=== PATIENT | female | born 1945 | race Caucasian/White ===

== ENCOUNTER 2017-02-28 12:51 | Emergency (ER) | payer MEDICARE, OTHER ==
[~2017-02-28] VITALS: Ht 154.9 cm; Wt 72.5 kg
[~2017-02-28 12:51] MED LIST: HYDR10TA16 PO; LISI30TA4 PO; XANA2TAB2 PO
[2017-02-28 12:56] VITALS: BP 232/100; PULSE 86; RESP 20; TEMP 98.4; O2SAT 95
--- NOTE | 2017-02-28 13:13 | PD ---
Physical Exam Date Seen by Provider: Feb 28, 2017 Time Seen by Provider: 13:11 Narrative 71-year-old female presents to emergency Department with request with help for detox from alcohol. Patient is also a type II diabetic using insulin says her sugars a bit high. She states her son is getting released from skilled nursing which is also a stressor for her. She currently denies suicidal or homicidal ideation. Patient states she has been drinking today. She smells of alcohol. She is quite sad and upset with herself. Patient denies pain at this time. She has no known drug allergies. Data Data Last Documented VS Vital Signs Date Time Temp Pulse Resp B/P (MAP) Pulse Ox O2 Delivery O2 Flow Rate FiO2 02/28/17 12:56 98.4 86 20 232/100 (144) 95 Orders Orders Complete Blood Count With Diff (02/28/17 13:10) Comprehensive Metabolic Panel (02/28/17 13:10) Urinalysis - C+S If Indicated (02/28/17 13:10) Electrocardiogram (02/28/17 13:10) Psych Screen (02/28/17 13:10) Drug Screen, Random Urine (02/28/17 13:10) Alcohol (Ethanol) (02/28/17 13:10) MDM Medical Record Reviewed: Yes Supervised Visit with JUN: Yes Narrative Course Patient is intoxicated but medically stable. Understood blood sugar is 104. Psychiatric labs ordered per protocol. Psych screen is ordered. Patient is awaiting medical bed placement. Condition: Stable Marco Novak Feb 28, 2017 13:13
[2017-02-28 14:43] LABS: BACTERIA, URINE RARE /hpf; BLOOD, URINE TRACE (NEG); COMMENT (UR) CULT NOT INDICATED; CULTURE IF INDICATED CULT NOT INDICATED; GLUCOSE,URINE NEG (NEG); KETONE, URINE NEG (NEG); NITRITE,URINE NEG (NEG); SQUAMOUS EPITHELIAL CELL URINE 1 /hpf (0-5); TRANSITIONAL EPI CELLS, URINE <1 /hpf; URINE COLOR LIGHT-YELLOW (YELLW/STRAW)
[2017-02-28] MEDS ORDERED: HYDR-3516 PO (14:45)
[2017-02-28] MEDS ORDERED: TEMA15CA PO (14:45)
[2017-02-28] MEDS ORDERED: NIFE30TA61 PO (14:45)
[2017-02-28] MEDS ORDERED: GLIP5TAB8 PO (14:45)
[2017-02-28] MEDS ORDERED: TIZA2TAB PO (14:45)
[2017-02-28 14:48] LABS: AUTOMATED NEUTROPHIL # 3.4 TH/MM3 (1.8-7.7); BASOPHIL # 0.1 TH/MM3 (0-0.2); BASOPHIL % 0.9 % (0.0-2.0); EOSINOPHIL # 0.1 TH/MM3 (0-0.4); EOSINOPHIL % 1.1 % (0.0-4.0); HEMATOCRIT 27.8 % (35.0-46.0); HEMO FLAGS DIFF FINAL; LYMPH % 41.8 % (9.0-44.0); MEAN CELL VOLUME 93.4 FL (80.0-100.0); MEAN CORPUSCULAR HEMOGLOBIN 32.9 PG (27.0-34.0); MEAN CORPUSCULAR HGB CONC 35.2 % (32.0-36.0); MONO % 8.6 % (0.0-8.0); NEUT % 47.6 % (16.0-70.0); PLATELET COUNT 214 TH/MM3 (150-450); RED BLOOD COUNT 2.97 MIL/MM3 (4.00-5.30); RED CELL DISTRIBUTION WIDTH 13.6 % (11.6-17.2); WHITE BLOOD COUNT 7.1 TH/MM3 (4.0-11.0)
[2017-02-28] MEDS ORDERED: CHLO25CA9 PO (14:54)
--- NOTE | 2017-02-28 14:55 | PD ---
HPI Chief Complaint: Psychiatric Symptoms Time Seen by Provider: 14:39 Travel History International Travel<30 days: No Contact w/Intl Traveler<30days: No Traveled to known affect area: No History of Present Illness HPI 71 yo F requests admission for detox from alcohol. she drinks daily and has done so for years leading up to her current desire to quit. no alcohol withdrawal symptoms. no si/hi. location generalized/neuropsych. timing constant. severity moderate. she prefers not to stay at [facility]. PFSH Past Medical History Arthritis: Yes (FINGERS/FEET) Asthma: No Autoimmune Disease: No Blood Disorders: No Anxiety: Yes Depression: Yes Heart Rhythm Problems: Yes (RBBB, LVH, 1ST DEGREE ) Cancer: No Cardiovascular Problems: Yes High Cholesterol: No Chemotherapy: No Chest Pain: Yes Congestive Heart Failure: No COPD: No Cerebrovascular Accident: No Diabetes: Yes Patient Takes Glucophage: No Diminished Hearing: No Endocrine: No Gastrointestinal Disorders: Yes (GI BLEED 2001) GERD: No Glaucoma: No Genitourinary: No Headaches: No Hepatitis: No Hiatal Hernia: No Hypertension: Yes Immune Disorder: No Kidney Stones: No Musculoskeletal: Yes 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) Psychiatric: Yes Reproductive: No Respiratory: No Immunizations Current: Yes Migraines: No Myocardial Infarction: Yes Radiation Therapy: No Renal Failure: No Seizures: No Sickle Cell Disease: No Sleep Apnea: No Thyroid Disease: No Ulcer: Yes (ULCER FROM NSAIDS 2001) ?: Not Menopausal: Yes : 4 Para: 5 Past Surgical History Abdominal Surgery: No AICD: No Appendectomy: No Arteriovenous Shunt: No Cardiac Surgery: No Cholecystectomy: No Ear Surgery: No Endocrine Surgery: No Eye Surgery: No Genitourinary Surgery: No Gynecologic Surgery: No Insulin Pump: No Joint Replacement: No Oral Surgery: No Pacemaker: No Thoracic Surgery: No Other Surgery: Yes Social History Alcohol Use: Yes (states she drinks daily) Tobacco Use: No Substance Use: No Allergies-Medications (Allergen,Severity, Reaction): Coded Allergies: No Known Allergies (Verified , 02/28/17) Reported Meds & Prescriptions Reported Meds & Active Scripts Active Chlordiazepoxide HCl 25 Mg Capsule 1 Tab PO BID PRN Reported Tizanidine (Tizanidine HCl) 2 Mg Tab 2 Mg PO HS Temazepam 15 Mg Cap 15 Mg PO HS PRN Glipizide 5 Mg Tab 2.5 Mg PO BIDAC Take 30 minutes before a meal Hydrocodone-Acetaminophen 5-325 mg Tab 1 Tab PO Q4H PRN Nifedipine ER 24 HR (Nifedipine) 30 Mg Tab 30 Mg PO DAILY Review of Systems Except as stated in HPI: all other systems reviewed are Neg Physical Exam Narrative GENERAL: 71 yo female, wnwd, no acute distress SKIN: Warm and dry. HEAD: Atraumatic. Normocephalic. EYES: Pupils equal and round. No scleral icterus. No injection or drainage. ENT: No nasal bleeding or discharge. Mucous membranes pink and moist. NECK: Trachea midline. No JVD. CARDIOVASCULAR: Regular rate and rhythm. RESPIRATORY: No accessory muscle use. Clear to auscultation. Breath sounds equal bilaterally. GASTROINTESTINAL: Abdomen soft, non-tender, nondistended. Hepatic and splenic margins not palpable. MUSCULOSKELETAL: Extremities without clubbing, cyanosis, or edema. No obvious deformities. NEUROLOGICAL: Awake and alert. No obvious cranial nerve deficits. Motor grossly within normal limits. Five out of 5 muscle strength in the arms and legs. Normal speech. PSYCHIATRIC: Appropriate mood and affect; insight and judgment normal. Data Data Last Documented VS Vital Signs Date Time Temp Pulse Resp B/P (MAP) Pulse Ox O2 Delivery O2 Flow Rate FiO2 02/28/17 15:28 02/28/17 12:56 98.4 86 20 95 Orders Orders Complete Blood Count With Diff (02/28/17 13:10) Comprehensive Metabolic Panel (02/28/17 13:10) Urinalysis - C+S If Indicated (02/28/17 13:10) Electrocardiogram (02/28/17 13:10) Psych Screen (02/28/17 13:10) Drug Screen, Random Urine (02/28/17 13:10) Alcohol (Ethanol) (02/28/17 13:10) Chlordiazepoxide (Librium) (02/28/17 15:00) Ed Discharge Order (02/28/17 14:55) Labs Laboratory Tests Test 02/28/17 14:00 02/28/17 14:20 Urine Color LIGHT-YELLOW Urine Turbidity CLEAR Urine pH 7.0 Urine Specific [place] 1.005 Urine Protein 100 mg/dL Urine Glucose (UA) NEG mg/dL Urine Ketones NEG mg/dL Urine Occult Blood TRACE Urine Nitrite NEG Urine Bilirubin NEG Urine Urobilinogen LESS THAN 2.0 MG/DL Urine Leukocyte Esterase NEG Urine RBC 1 /hpf Urine WBC 1 /hpf Urine Squamous Epithelial Cells 1 /hpf Urine Transitional Epithelial Cells <1 /hpf Urine Bacteria RARE /hpf Microscopic Urinalysis Comment CULT NOT INDICATED Urine Opiates Screen NEG Urine Barbiturates Screen NEG Urine Amphetamines Screen NEG Urine Benzodiazepines Screen NEG Urine Cocaine Screen NEG Urine Cannabinoids Screen NEG White Blood Count 7.1 TH/MM3 Red Blood Count 2.97 MIL/MM3 Hemoglobin 9.8 GM/DL Hematocrit 27.8 % Mean Corpuscular Volume 93.4 FL Mean Corpuscular Hemoglobin 32.9 PG Mean Corpuscular Hemoglobin Concent 35.2 % Red Cell Distribution Width 13.6 % Platelet Count 214 TH/MM3 Mean Platelet Volume 8.0 FL Neutrophils (%) (Auto) 47.6 % Lymphocytes (%) (Auto) 41.8 % Monocytes (%) (Auto) 8.6 % Eosinophils (%) (Auto) 1.1 % Basophils (%) (Auto) 0.9 % Neutrophils # (Auto) 3.4 TH/MM3 Lymphocytes # (Auto) 3.0 TH/MM3 Monocytes # (Auto) 0.6 TH/MM3 Eosinophils # (Auto) 0.1 TH/MM3 Basophils # (Auto) 0.1 TH/MM3 CBC Comment DIFF FINAL Differential Comment Blood Urea Nitrogen 50 MG/DL Creatinine 3.47 MG/DL Random Glucose 77 MG/DL Total Protein 9.2 GM/DL Albumin 3.7 GM/DL Calcium Level 9.0 MG/DL Alkaline Phosphatase 103 U/L Aspartate Amino Transf (AST/SGOT) 24 U/L Alanine Aminotransferase (ALT/SGPT) 27 U/L Total Bilirubin 0.2 MG/DL Sodium Level 138 MEQ/L Potassium Level 4.3 MEQ/L Chloride Level 103 MEQ/L Carbon Dioxide Level 26.9 MEQ/L Anion Gap 8 MEQ/L Estimat Glomerular Filtration Rate 13 ML/MIN Ethyl Alcohol Level 315 MG/DL [facility] Medical Decision Making Medical Screen Exam Complete: Yes Emergency Medical Condition: Yes Medical Record Reviewed: Yes Differential Diagnosis alcoholism, mona, delerium tremens, anxiety, depression, si, hi Narrative Course CBC & BMP Diagram 02/28/17 14:20 Total Protein 9.2 H, Albumin 3.7, Calcium Level 9.0, Alkaline Phosphatase 103, Aspartate Amino Transf (AST/SGOT) 24, Alanine Aminotransferase (ALT/SGPT) 27, Total Bilirubin 0.2 pt has known history of renal failure such that elevated bun/creatinine does not require admission further evaluation. pt agreeable with plan for discharge with librium. pt is desirous of sobriety however not suicidal or homicidal and therefor stable for discharge. Diagnosis Primary Impression: Alcoholism Referrals: [facility] Additional Instructions: You have a choice when it comes to health care, and we are glad that you chose [facility]. Hopefully, we have met your expectations on today's visit. You are welcome to return to [facility] at any time, as we are committed to meeting the health care needs of our community. Med/Other Pt SpecificInfo: Prescription(s) given Scripts Chlordiazepoxide HCl (Chlordiazepoxide HCl) 25 Mg Capsule 1 TAB PO BID Y for WITHDRAWAL, #20 Prov: Santi Khan MD 02/28/17 Disposition: 01 DISCHARGE HOME Condition: Stable Santi Khan MD Feb 28, 2017 14:55
[2017-02-28 14:57] LABS: ALT (GPT) 27 U/L (10-53); ANION GAP 8 MEQ/L (5-15); AST (GOT) 24 U/L (15-37); BICARBONATE 26.9 MEQ/L (21.0-32.0); BLOOD UREA NITROGEN 50 MG/DL (7-18); CHLORIDE 103 MEQ/L (98-107); GLOMERULAR FILTRATION RATE 13 ML/MIN (>89); POTASSIUM 4.3 MEQ/L (3.5-5.1); SODIUM (NA) 138 MEQ/L (136-145)
[2017-02-28 15:02] LABS: ALKALINE PHOSPHATASE 103 U/L (45-117); TOTAL BILIRUBIN ADULT 0.2 MG/DL (0.2-1.0)
[2017-02-28 15:29] LABS: ALCOHOL 315 MG/DL (0-5)
--- NOTE | 2017-02-28 22:03 | EKG ---
Date Performed: 02/28/2017 Time Performed: 14:05:32 PTAGE: 71 years EKG: Sinus rhythm WITH FIRST DEGREE AV BLOCK RIGHT BUNDLE BRANCH BLOCK LEFT VENTRICULAR HYPERTROPHY AND ST-T CHANGES A BNORMAL ECG PREVIOUS TRACING : 12/04/2008 02.35 Compared to the previous tracing RBBB now present DOCTOR: Lola Nguyen Interpretating Date/Time 02/28/2017 22:01:53
== END 2017-02-28 15:29 | disposition home or self-care (01) ==
LOC: NEPD 12:51
DX: F10.20 Alcohol dependence, uncomplicated (principal); I12.9 Hypertensive chronic kidney disease with stage 1 through stage 4 chronic kidney disease, or unspecified chronic kidney disease; E11.22 Type 2 diabetes mellitus with diabetic chronic kidney disease; N18.9 Chronic kidney disease, unspecified; I44.0 Atrioventricular block, first degree; I45.10 Unspecified right bundle-branch block; I51.7 Cardiomegaly; R94.31 Abnormal electrocardiogram [ECG] [EKG]; M19.90 Unspecified osteoarthritis, unspecified site
CPT/HCPCS: 80053; 80307; 81001; 85025; 93005

== ENCOUNTER 2017-04-12 14:15 | Inpatient (IN) | payer OTHER, MEDICARE ==
[2017-04-12] VITALS (12 sets, daily range): BP systolic 133–242; BP diastolic 69–140; PULSE 66–104; RESP 13–22; TEMP 98–98.9; O2SAT 94–98
[~2017-04-12] VITALS: Ht 157.5 cm; Wt 77.6 kg
[~2017-04-12 14:15] MED LIST changes: +CHLO25CA9 PO; +GLIP5TAB8 PO; +HYDR-3516 PO; -HYDR10TA16 PO; -LISI30TA4 PO; +NIFE30TA61 PO; +TEMA15CA PO; +TIZA2TAB PO; -XANA2TAB2 PO
[2017-04-12] MEDS ORDERED: SODIUM CHLOR 0.9% 1000 ML INJ 1,000 ML IV SCH (14:54)
[2017-04-12] MEDS ORDERED: SODIUM CHLORIDE 0.9% FLUSH 10 ML FLUSH IV FLUSH PRN ×2 (15:00→19:00)
[2017-04-12] MEDS ORDERED: LABETALOL HCL 100 MG/20 ML VIAL IV PUSH ONE ×2 (15:00→16:30)
--- NOTE | 2017-04-12 15:05 | PD ---
HPI Chief Complaint: Altered Mental Status Time Seen by Provider: 14:54 Travel History International Travel<30 days: No Contact w/Intl Traveler<30days: No Traveled to known affect area: No History of Present Illness HPI 71 year old female presents to the emergency department via EMS for evaluation of AMS. According to EMS, the patient will be oriented to person, place, time, but will say bizarre things and act confused. The patient was apparently found in her apartment drenched in sweat with the oven on and unshowered. She apparently also had several days worth of food out and her place was disheveled. Apparently, she usually takes immaculate care of herself and her house. She lives alone. The patient does not make sense when she tells he was going on. She states her electricity was turned off 3 days ago, but her landlord has so she couldn't call him. Then she states that the remote to the TV belongs to her landlord and he is out of town. She also states that she turned on the oven, but states her electricity off. She is not making any sense. However, she does know that she is at the hospital, the year is 2016, we are in [place] and the president is Stephen Ash. The patient denies any pain to me. She states that she just wants to go home. The patient does report history of hypertension and states she has not been taking her medications. She states she has not eaten or drank in the past 3 days. Patient does state that she fell on Monday and then got herself up to the couch. Exacerbating alleviating factors. Moderate severity. According to chart, the patient has history of alcoholism. PFSH Past Medical History Arthritis: Yes (FINGERS/FEET) Asthma: No Autoimmune Disease: No Blood Disorders: No Anxiety: Yes Depression: Yes Heart Rhythm Problems: Yes (RBBB, LVH, 1ST DEGREE ) Cancer: No Cardiovascular Problems: Yes (HTN) High Cholesterol: No Chemotherapy: No Chest Pain: Yes Congestive Heart Failure: No COPD: No Cerebrovascular Accident: No Diabetes: Yes Diminished Hearing: No Endocrine: No Gastrointestinal Disorders: Yes (GI BLEED 2001) GERD: No Glaucoma: No Genitourinary: No Headaches: No Hepatitis: No Hiatal Hernia: No Hypertension: Yes Immune Disorder: No Kidney Stones: No Musculoskeletal: Yes 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) Psychiatric: Yes Reproductive: No Respiratory: No Immunizations Current: Yes Migraines: No Myocardial Infarction: Yes Radiation Therapy: No Renal Failure: No Seizures: No Sickle Cell Disease: No Sleep Apnea: No Thyroid Disease: No Ulcer: Yes (ULCER FROM NSAIDS 2001) ?: Not Menopausal: Yes : 4 Para: 5 Past Surgical History Abdominal Surgery: No AICD: No Appendectomy: No Arteriovenous Shunt: No Cardiac Surgery: No Cholecystectomy: No Ear Surgery: No Endocrine Surgery: No Eye Surgery: No Genitourinary Surgery: No Gynecologic Surgery: No Insulin Pump: No Joint Replacement: No Oral Surgery: No Pacemaker: No Thoracic Surgery: No Other Surgery: Yes Social History Alcohol Use: Yes (states she drinks daily) Tobacco Use: No Substance Use: No Allergies-Medications (Allergen,Severity, Reaction): Coded Allergies: No Known Allergies (Verified Adverse Reaction, Unknown, 04/12/17) Reported Meds & Prescriptions Reported Meds & Active Scripts Active Reported Tizanidine (Tizanidine HCl) 2 Mg Tab 2 Mg PO HS Temazepam 15 Mg Cap 15 Mg PO HS PRN Glipizide 5 Mg Tab 2.5 Mg PO BIDAC Take 30 minutes before a meal Hydrocodone-Acetaminophen 5-325 mg Tab 1 Tab PO Q4H PRN Nifedipine ER 24 HR (Nifedipine) 30 Mg Tab 30 Mg PO DAILY Review of Systems Except as stated in HPI: all other systems reviewed are Neg Physical Exam Narrative GENERAL: Well-nourished, well-developed female patient, afebrile. SKIN: Focused skin assessment warm/dry. HEAD: Normocephalic. Atraumatic. EYES: No scleral icterus. No injection or drainage. EOM intact. ENT: Mucosa pink and moist. No erythema or exudates. No uvular edema. No uvular , palatal, or tonsillar deviation. Airway patent. Nasal turbinates appear normal without nasal blood, purulent drainage or septal hematoma. Bilateral tympanic membranes are clear without erythema or perforation. NECK: Supple, trachea midline. No JVD or lymphadenopathy. CARDIOVASCULAR: Regular rate and rhythm without murmurs, gallops, or rubs. Bilateral radial and pedal pulses are 2+. RESPIRATORY: Breath sounds equal bilaterally. No accessory muscle use. Lungs sounds are clear to auscultation. GASTROINTESTINAL: Abdomen soft, non-tender, nondistended. MUSCULOSKELETAL: No cyanosis, or edema. Bilateral upper and lower extremity strength 5/5. All extremities are neurovascularly intact. BACK: Nontender without obvious deformity. No CVA tenderness. NEUROLOGICAL: Awake and alert. Motor and sensory grossly within normal limits. Five out of 5 muscle strength in all muscle groups. Normal speech. Patient acts confused and does not make sense when telling why she is here. Finger to nose is normal bilaterally. [id number] is normal bilaterally. Data Data Last Documented VS Vital Signs Date Time Temp Pulse Resp B/P (MAP) Pulse Ox O2 Delivery O2 Flow Rate FiO2 04/12/17 17:30 70 13 186/81 (116) 95 Room Air 04/12/17 15:01 98.5 Orders Orders Electrocardiogram (04/12/17 14:54) Ammonia (04/12/17 14:54) Comprehensive Metabolic Panel (04/12/17 14:54) Creatine Kinase (Cpk) (04/12/17 14:54) Prothrombin Time / Inr (Pt) (04/12/17 14:54) Act Partial Throm Time (Ptt) (04/12/17 14:54) Troponin I (04/12/17 14:54) Urinalysis - C+S If Indicated (04/12/17 14:54) Lactic Acid Sepsis Protocol (04/12/17 14:54) Blood Culture (04/12/17 14:54) Ct Brain W/O Iv Contrast(Rout) (04/12/17 14:54) Blood Glucose (04/12/17 14:54) Ecg Monitoring (04/12/17 14:54) Iv Access Insert/Monitor (04/12/17 14:54) Cath For Specimen (04/12/17 14:54) Oximetry (04/12/17 14:54) Sodium Chloride 0.9% Flush (Ns Flush) (04/12/17 15:00) Sodium Chlor 0.9% 1000 Ml Inj (Ns 1000 M (04/12/17 14:54) Alcohol (Ethanol) (04/12/17 14:54) Labetalol Inj (Trandate Inj) (04/12/17 15:00) Complete Blood Count With Diff (04/12/17 15:06) Pelvis, Ap Only (Routine) (04/12/17 ) Chest, Single Ap (04/12/17 ) Labetalol Inj (Trandate Inj) (04/12/17 16:30) Urine Culture (04/12/17 16:20) Nifedipine Sr (Procardia Xl) (04/12/17 17:30) Ceftriaxone Inj (Rocephin Inj) (04/12/17 18:00) Admit Order (Ed Use Only) (04/12/17 18:31) Labs Laboratory Tests Test 04/12/17 16:15 04/12/17 16:20 White Blood Count 8.2 TH/MM3 Red Blood Count 2.98 MIL/MM3 Hemoglobin 9.2 GM/DL Hematocrit 27.9 % Mean Corpuscular Volume 93.6 FL Mean Corpuscular Hemoglobin 30.9 PG Mean Corpuscular Hemoglobin Concent 33.0 % Red Cell Distribution Width 15.6 % Platelet Count 204 TH/MM3 Mean Platelet Volume 8.8 FL Neutrophils (%) (Auto) 75.9 % Lymphocytes (%) (Auto) 12.9 % Monocytes (%) (Auto) 10.8 % Eosinophils (%) (Auto) 0.1 % Basophils (%) (Auto) 0.3 % Neutrophils # (Auto) 6.2 TH/MM3 Lymphocytes # (Auto) 1.1 TH/MM3 Monocytes # (Auto) 0.9 TH/MM3 Eosinophils # (Auto) 0.0 TH/MM3 Basophils # (Auto) 0.0 TH/MM3 CBC Comment DIFF FINAL Differential Comment Prothrombin Time 11.4 SEC Prothromb Time International Ratio 1.1 RATIO Activated Partial Thromboplast Time 27.8 SEC Blood Urea Nitrogen 43 MG/DL Creatinine 4.03 MG/DL Random Glucose 102 MG/DL Total Protein 8.8 GM/DL Albumin 3.4 GM/DL Calcium Level 9.0 MG/DL Alkaline Phosphatase 74 U/L Aspartate Amino Transf (AST/SGOT) 24 U/L Alanine Aminotransferase (ALT/SGPT) 15 U/L Total Bilirubin 0.4 MG/DL Sodium Level 141 MEQ/L Potassium Level 4.1 MEQ/L Chloride Level 108 MEQ/L Carbon Dioxide Level 21.8 MEQ/L Anion Gap 11 MEQ/L Estimat Glomerular Filtration Rate 11 ML/MIN Lactic Acid Level 1.0 mmol/L Ammonia 28 MCMOL/L Total Creatine Kinase 159 U/L Troponin I 0.05 NG/ML Ethyl Alcohol Level LESS THAN 3 MG/DL Urine Color YELLOW Urine Turbidity HAZY Urine pH 6.0 Urine Specific [place] 1.021 Urine Protein 300 mg/dL Urine Glucose (UA) TRACE mg/dL Urine Ketones NEG mg/dL Urine Occult Blood SMALL Urine Nitrite NEG Urine Bilirubin NEG Urine Urobilinogen LESS THAN 2.0 MG/DL Urine Leukocyte Esterase NEG Urine RBC 1 /hpf Urine WBC 4 /hpf Urine Squamous Epithelial Cells 1 /hpf Urine Amorphous Sediment RARE Urine Bacteria RARE /hpf Urine Hyaline Casts 16 /lpf Urine Mucus FEW /lpf Microscopic Urinalysis Comment CATH-CULTURE IND MDM Medical Decision Making Medical Screen Exam Complete: Yes Emergency Medical Condition: Yes Medical Record Reviewed: Yes Interpretation(s) Last Impressions Pelvis X-Ray 04/12/17 0000 Signed Impressions: Service Date/Time: Wednesday, April 12, 2017 15:34 - CONCLUSION: 1. 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 2. No fracture Scottie Manley MD Chest X-Ray 04/12/17 0000 Signed Impressions: Service Date/Time: Monday, April 12, 2017 15:02 - CONCLUSION: No acute disease. Mike Viera MD CT head - small old bilateral cerebellar infarcts; no evidence of acute infarct , hemorrhage, mass, or edema Differential Diagnosis Dehydration versus electrolyte abnormality versus intracranial abnormality versus UTI versus pneumonia Narrative Course 71-year-old female presents to the emergency department via EMS for altered mental status. EKG, CBC, CMP, CK, troponin, lactic acid, ammonia level, PTT, PT /INR, alcohol level are ordered and pending. Blood cultures 2 are ordered and pending. Patient is given normal saline 1 L IV bolus, labetalol 10 mg IV. Chest x-ray and CT of the brain are ordered and pending. EKG shows sinus tachycardia, heart rate 100, right bundle branch block. CBC shows slight anemia with hemoglobin 9.2. CMP shows elevated BUN and creatinine of 43/4.03. CK is 159. Troponin is 0.05. Ammonia level is 28. Lactic acid is 1.0. Coags .are unremarkable. Alcohol level is less than 3. Chest x-ray shows no acute disease. CT of the brain shows small old bilateral cerebellar infarcts; no evidence of acute infarct, hemorrhage, mass, or edema. X-ray of the pelvis shows n fracture. Dr. King accepted admission. Diagnosis Primary Impression: Altered mental status Qualified Codes: R41.82 - Altered mental status, unspecified Admitting Information Admitting Physician Requests: Observation Julianne Reeves Apr 12, 2017 15:05
--- NOTE | 2017-04-12 15:49 | RADRPT ---
EXAM DATE/TIME: 04/12/2017 15:02 [facility] COMPARISON: No previous studies available for comparison. INDICATIONS : AMS. Dizziness. MEDICAL HISTORY : None. SURGICAL HISTORY : None. ENCOUNTER: Initial ACUITY: 1 day PAIN SCORE: Non-responsive. LOCATION: Bilateral chest FINDINGS: A single view of the chest demonstrates the lungs to be symmetrically aerated without evidence of mas s, infiltrate or effusion. The cardiomediastinal contours are unremarkable. Osseous structures are intact. CONCLUSION: No acute disease. Mike Viera MD on April 12, 2017 at 15:47 Board Certified Radiologist. This report was verified electronically.
--- NOTE | 2017-04-12 16:23 | RADRPT ---
EXAM DATE/TIME: 04/12/2017 15:34 [facility] COMPARISON: No previous studies available for comparison. INDICATIONS : Pain post fall. Altered mental status. MEDICAL HISTORY : None. SURGICAL HISTORY : None. ENCOUNTER: Initial ACUITY: 1 day PAIN SCORE: 8/10 LOCATION: Pelvis. FINDINGS: A single frontal view of the pelvis demonstrates no evidence of fracture. The bony pelvic ring is in tact. Bony mineralization is normal. The soft tissues are intact. There are some degenerative osteo arthritic changes in the right hip CONCLUSION: 1. 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 2. No fracture Scottie Manley MD on April 12, 2017 at 16:19 Board Certified Radiologist. This report was verified electronically.
[2017-04-12 16:55] LABS: AUTOMATED NEUTROPHIL # 6.2 TH/MM3 (1.8-7.7); BASOPHIL % 0.3 % (0.0-2.0); EOSINOPHIL % 0.1 % (0.0-4.0); HEMATOCRIT 27.9 % (35.0-46.0); HEMO FLAGS DIFF FINAL; LYMPH % 12.9 % (9.0-44.0); LYMPHOCYTE # 1.1 TH/MM3 (1.0-4.8); MEAN CELL VOLUME 93.6 FL (80.0-100.0); MEAN CORPUSCULAR HEMOGLOBIN 30.9 PG (27.0-34.0); MONO % 10.8 % (0.0-8.0); NEUT % 75.9 % (16.0-70.0); PLATELET COUNT 204 TH/MM3 (150-450); RED BLOOD COUNT 2.98 MIL/MM3 (4.00-5.30); RED CELL DISTRIBUTION WIDTH 15.6 % (11.6-17.2); WHITE BLOOD COUNT 8.2 TH/MM3 (4.0-11.0)
[2017-04-12 16:58] LABS: BACTERIA, URINE RARE /hpf; BLOOD, URINE SMALL (NEG); COMMENT (UR) CATH-CULTURE IND; CULTURE IF INDICATED CATH CULTURE IND; GLUCOSE,URINE TRACE mg/dL (NEG); HYALINE CAST, URINE 16 /lpf (RARE); KETONE, URINE NEG (NEG); MUCUS URINE FEW /lpf (OCC); NITRITE,URINE NEG (NEG); SQUAMOUS EPITHELIAL CELL URINE 1 /hpf (0-5); URINE COLOR YELLOW (YELLW/STRAW)
[2017-04-12 17:03] LABS: APTT (PATIENT) 27.8 SEC (24.3-30.1); INTERNATIONAL NORMALIZED RATIO 1.1 RATIO; PROTHROMBIN TIME - PATIENT 11.4 SEC (9.8-11.6)
[2017-04-12 17:23] LABS: ANION GAP 11 MEQ/L (5-15); AST (GOT) 24 U/L (15-37); BICARBONATE 21.8 MEQ/L (21.0-32.0); BLOOD UREA NITROGEN 43 MG/DL (7-18); CHLORIDE 108 MEQ/L (98-107); GLOMERULAR FILTRATION RATE 11 ML/MIN (>89); POTASSIUM 4.1 MEQ/L (3.5-5.1); SODIUM (NA) 141 MEQ/L (136-145)
[2017-04-12 17:24] LABS: ALT (GPT) 15 U/L (10-53)
[2017-04-12 17:27] LABS: ALKALINE PHOSPHATASE 74 U/L (45-117); CREATINE KINASE 159 U/L (26-192); TOTAL BILIRUBIN ADULT 0.4 MG/DL (0.2-1.0)
[2017-04-12 17:29] LABS: ALCOHOL LESS THAN 3 MG/DL (0-5)
[2017-04-12] MEDS ORDERED: NIFEdipine 30 MG SUSTAINED RELEASE TAB PO ONE (17:30)
[2017-04-12] MEDS ORDERED: cefTRIAXone INJ 1,000 MG in SODIUM CHLORIDE 0.9% INJ 100 ML IV SCH (18:00)
[2017-04-12] MEDS ORDERED: cefTRIAXone INJ 1,000 MG in SODIUM CHLORIDE 0.9% INJ 100 ML IV ONE (18:00)
--- NOTE | 2017-04-12 18:05 | RADRPT ---
EXAM DATE/TIME: 04/12/2017 17:38 [facility] COMPARISON: No previous studies available for comparison. INDICATIONS : Altered mental status. RADIATION DOSE: 56.35 CTDIvol (mGy) MEDICAL HISTORY : Hypertension. Cardiovascular disease SURGICAL HISTORY : None. ENCOUNTER: Initial ACUITY: 1 day PAIN SCALE: 0/10 LOCATION: cranial TECHNIQUE: Multiple contiguous axial images were obtained of the head. Using automated exposure control and adj ustment of the mA and/or kV according to patient size, radiation dose was kept as low as reasonably a chievable to obtain optimal diagnostic quality images. DICOM format image data is available electro nically for review and comparison. FINDINGS: CEREBRUM: The ventricles are normal for age. No evidence of midline shift, mass lesion, hemorrhage or acute in farction. No extra-axial fluid collections are seen. POSTERIOR FOSSA: Focal hypodensities within the cerebellar hemispheres are characteristic of small old infarcts. Brain stem and cerebellum are otherwise unremarkable. EXTRACRANIAL: The visualized portion of the orbits is intact. SKULL: The calvaria is intact. No evidence of skull fracture. CONCLUSION: 1. 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 2. No evidence of acute infarct, hemorrhage, mass or edema. Mike Viera MD on April 12, 2017 at 18:02 Board Certified Radiologist. This report was verified electronically.
[2017-04-12] MEDS ORDERED: LACTULOSE SYRUP 20 GM/30 ML CUP PO PRN (19:00)
[2017-04-12] MEDS ORDERED: ONDANSETRON HCL 4 MG/2 ML VIAL IVP PRN (19:00)
[2017-04-12] MEDS ORDERED: MAGNESIUM HYDROXIDE SUSP 30 ML CUP PO PRN (19:00)
[2017-04-12] MEDS ORDERED: GLUCAGON 1 MG/ML VIAL OTHER PRN (19:00)
[2017-04-12] MEDS ORDERED: SENNOSIDES 8.6 MG TAB PO PRN (19:00)
[2017-04-12] MEDS ORDERED: DEXTROSE 50% IN WATER 50 ML VIAL(D50) IV PUSH PRN (19:00)
[2017-04-12] MEDS ORDERED: BISACODYL 10 MG SUPP RECTAL PRN (19:00)
[2017-04-12] MEDS ORDERED: ACETAMINOPHEN 325 MG TAB PO PRN (19:00)
[2017-04-12] MEDS ORDERED: NALOXONE HCL 0.4 MG/ML AMP IV PUSH PRN (19:00)
[2017-04-12] MEDS: SODIUM CHLOR 0.9% 1000 ML INJ 1,000 ML IV SCH (19:03)
[2017-04-12] MEDS ORDERED: PILL SPLITTER OTHER PRN (19:15)
--- NOTE | 2017-04-12 19:50 | HHI.HP ---
[facility] Randy Mi MD Admission Diagnosis AMS Diagnoses: Chief Complaint: altered mental status Travel History International Travel<30 Days: No Contact w/Intl Traveler <30 Da: No Traveled to Known Affected Are: No History of Present Illness 71 year old female presents to the emergency department via EMS for evaluation of AMS. According to EMS, the patient will be oriented to person, place, time, but will say bizarre things and act confused. The patient was apparently found in her apartment drenched in sweat with the oven on and unshowered. She apparently also had several days worth of food out and her place was disheveled. Apparently, she usually takes immaculate care of herself and her house. She lives alone. The patient does not make sense when she tells he was going on. She states her electricity was turned off 3 days ago, but her landlord has so she couldn't call him. Then she states that the remote to the TV belongs to her landlord and he is out of town. She also states that she turned on the oven, but states her electricity off. She is not making any sense. However, she does know that she is at the hospital, the year is 2016, we are in April and the president is Stephen Ash. The patient denies any pain to me. She states that she just wants to go home. The patient does report history of hypertension and states she has not been taking her medications. She states she has not eaten or drank in the past 3 days. Patient does state that she fell on Monday and then got herself up to the couch. Exacerbating alleviating factors. Moderate severity. According to chart, the patient has history of alcoholism, however the patient is denying drinking alcohol. Patient says she had no power in her house and she is expected to have our back in 1 or 2 days. Says she was not taking her medications for the past 3 days and her blood pressure is elevated because she failed taking her medications. She is also hungry says she was not eating for the past 3 days. She is alert and oriented by 3 at this time. Review of Systems ROS Limitations: Clinical Condition, Altered Mental Status, Poor Historian Except as stated in HPI: all other systems reviewed are Neg Past Family Social History Past Medical History CKD [address] Michel, Arthritis, anxiety/depression, first-degree block right all other problems block, hypertension, history of JVD in 2001 colonoscopy, sciatica left buttocks, history of ulcer from NSAIDs use 2001 Past Surgical History colonoscopy in 2001 Reported Medications Last Impressions Head CT 04/12/17 1454 Signed Impressions: Service Date/Time: Wednesday, April 12, 2017 17:38 - CONCLUSION: 1. 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 2. No evidence of acute infarct, hemorrhage , mass or edema. Mike Viera MD Pelvis X-Ray 04/12/17 0000 Signed Impressions: Service Date/Time: Wednesday, April 12, 2017 15:34 - CONCLUSION: 1. 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 2. No fracture Scottie Malney MD Chest X-Ray 04/12/17 0000 Signed Impressions: Service Date/Time: Wednesday, April 12, 2017 15:02 - CONCLUSION: No acute disease. Mike Viera MD Allergies: Coded Allergies: No Known Allergies (Verified Adverse Reaction, Unknown, 04/12/17) Family History Family history positive for kidney problems, diabetes, hypertension Social History Occasional alcohol use, says no recently, no illicit drug use or tobacco use. Physical Exam Vital Signs Vital Signs Date Time Temp Pulse Resp B/P (MAP) Pulse Ox O2 Delivery O2 Flow Rate FiO2 04/12/17 17:30 70 13 186/81 (116) 95 Room Air 04/12/17 17:15 68 13 215/95 (135) 94 Room Air 04/12/17 16:56 70 14 220/97 (138) 97 Room Air 04/12/17 15:27 89 22 222/104 (143) 97 Room Air 04/12/17 15:01 98.5 94 15 242/107 (152) 98 Room Air 04/12/17 14:52 98.9 104 16 240/140 (173) 98 Physical Exam GENERAL: This is a well-nourished, well-developed patient, in no apparent distress. SKIN: No rashes, ecchymoses or lesions. Cool and dry. HEAD: Atraumatic. Normocephalic. No temporal or scalp tenderness. EYES: Pupils equal round and reactive. Extraocular motions intact. No scleral icterus. No injection or drainage. ENT: Nose without bleeding, purulent drainage or septal hematoma. Throat without erythema, tonsillar hypertrophy or exudate. Uvula midline. Airway patent. NECK: Trachea midline. No JVD or lymphadenopathy. Supple, nontender, no meningeal signs. CARDIOVASCULAR: Regular rate and rhythm without murmurs, gallops, or rubs. RESPIRATORY: Clear to auscultation. Breath sounds equal bilaterally. No wheezes , rales, or rhonchi. GASTROINTESTINAL: Abdomen soft, non-tender, nondistended. No hepato-splenomegaly , or palpable masses. No guarding. MUSCULOSKELETAL: Extremities without clubbing, cyanosis, or edema. No joint tenderness, effusion, or edema noted. No calf tenderness. Negative Homans sign bilaterally. NEUROLOGICAL: Awake and alert and oriented by 3. Cranial nerves II through XII intact. Motor and sensory grossly within normal limits. Normal speech. Laboratory Laboratory Tests Test 04/12/17 16:15 04/12/17 16:20 White Blood Count 8.2 Red Blood Count 2.98 Hemoglobin 9.2 Hematocrit 27.9 Mean Corpuscular Volume 93.6 Mean Corpuscular Hemoglobin 30.9 Mean Corpuscular Hemoglobin Concent 33.0 Red Cell Distribution Width 15.6 Platelet Count 204 Mean Platelet Volume 8.8 Neutrophils (%) (Auto) 75.9 Lymphocytes (%) (Auto) 12.9 Monocytes (%) (Auto) 10.8 Eosinophils (%) (Auto) 0.1 Basophils (%) (Auto) 0.3 Neutrophils # (Auto) 6.2 Lymphocytes # (Auto) 1.1 Monocytes # (Auto) 0.9 Eosinophils # (Auto) 0.0 Basophils # (Auto) 0.0 CBC Comment DIFF FINAL Differential Comment Prothrombin Time 11.4 Prothromb Time International Ratio 1.1 Activated Partial Thromboplast Time 27.8 Blood Urea Nitrogen 43 Creatinine 4.03 Random Glucose 102 Total Protein 8.8 Albumin 3.4 Calcium Level 9.0 Alkaline Phosphatase 74 Aspartate Amino Transf (AST/SGOT) 24 Alanine Aminotransferase (ALT/SGPT) 15 Total Bilirubin 0.4 Sodium Level 141 Potassium Level 4.1 Chloride Level 108 Carbon Dioxide Level 21.8 Anion Gap 11 Estimat Glomerular Filtration Rate 11 Lactic Acid Level 1.0 Ammonia 28 Total Creatine Kinase 159 Troponin I 0.05 Ethyl Alcohol Level LESS THAN 3 Urine Color YELLOW Urine Turbidity HAZY Urine pH 6.0 Urine Specific [place] 1.021 Urine Protein 300 Urine Glucose (UA) TRACE Urine Ketones NEG Urine Occult Blood SMALL Urine Nitrite NEG Urine Bilirubin NEG Urine Urobilinogen LESS THAN 2.0 Urine Leukocyte Esterase NEG Urine RBC 1 Urine WBC 4 Urine Squamous Epithelial Cells 1 Urine Amorphous Sediment RARE Urine Bacteria RARE Urine Hyaline Casts 16 Urine Mucus FEW Microscopic Urinalysis Comment CATH-CULTURE IND Date/Time Source Procedure Growth Status 04/12/17 16:20 Blood Peripheral Aerobic Blood Culture Pending Received 04/12/17 16:20 Blood Peripheral Anaerobic Blood Culture Pending Received 04/12/17 16:20 Urine Catheterized Urine Urine Culture Pending Received Result Diagram: 04/12/17 1615 04/12/17 1615 Imaging Last Impressions Head CT 04/12/17 1454 Signed Impressions: Service Date/Time: Wednesday, April 12, 2017 17:38 - CONCLUSION: 1. 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 2. No evidence of acute infarct, hemorrhage , mass or edema. Mike Viera MD Pelvis X-Ray 04/12/17 0000 Signed Impressions: Service Date/Time: Wednesday, April 12, 2017 15:34 - CONCLUSION: 1. 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 2. No fracture Scottie Manley MD Chest X-Ray 04/12/17 0000 Signed Impressions: Service Date/Time: Wednesday, April 12, 2017 15:02 - CONCLUSION: No acute disease. Mike Viera MD Caprini VTE Risk Assessment Caprini VTE Risk Assessment: Mod/High Risk (score >= 2) Caprini Risk Assessment Model Point Value = 1 Point Value = 2 Point Value = 3 Point Value = 5 Age 41-60 Minor surgery BMI > 25 kg/m2 Swollen legs Varicose veins or History of unexplained or recurrent spontaneous Oral contraceptives or hormone replacement Sepsis (< 1 month) Serious lung disease, including pneumonia (< 1 month) Abnormal pulmonary function Acute myocardial infarction Congestive heart failure (< 1 month) History of inflammatory bowel disease Medical patient at bed rest Age 61-74 Arthroscopic surgery Major open surgery (> 45 min) Laparoscopic surgery (> 45 min) Malignancy Confined to bed (> 72 hours) Immobilizing plaster cast Central venous access Age >= 75 History of VTE Family history of VTE Factor V Leiden Prothrombin [id number] Lupus anticoagulant Anticardiolipin antibodies Elevated serum homocysteine Heparin-induced thrombocytopenia Other congenital or acquired thrombophilia Stroke (< 1 month) Elective arthroplasty Hip, pelvis, or leg fracture Acute spinal cord injury (< 1 month) Prophylaxis Regimen Total Risk Factor Score Risk Level Prophylaxis Regimen 0-1 Low Early ambulation 2 Moderate Order ONE of the following: *Sequential Compression Device (SCD) *Heparin 5000 units SQ BID 3-4 Higher Order ONE of the following medications: *Heparin 5000 units SQ TID *Enoxaparin/Lovenox 40 mg SQ daily (WT < 150 kg, CrCl > 30 mL/min) *Enoxaparin/Lovenox 30 mg SQ daily (WT < 150 kg, CrCl > 10-29 mL/min) *Enoxaparin/Lovenox 30 mg SQ BID (WT < 150 kg, CrCl > 30 mL/min) AND/OR *Sequential Compression Device (SCD) 5 or more Highest Order ONE of the following medications: *Heparin 5000 units SQ TID (Preferred with Epidurals) *Enoxaparin/Lovenox 40 mg SQ daily (WT < 150 kg, CrCl > 30 mL/min) *Enoxaparin/Lovenox 30 mg SQ daily (WT < 150 kg, CrCl > 10-29 mL/min) *Enoxaparin/Lovenox 30 mg SQ BID (WT < 150 kg, CrCl > 30 mL/min) AND *Sequential Compression Device (SCD) Assessment and Plan Assessment and Plan 71-year-old female with UTI Urine cultures are pending Continue Rocephin Monitor cultures Dehydration, 2/2 decreased PO intake,acute on CKD 4. Patient following with Dr. Michel as OP. Consult if need. Monitor kidney function . Encourage hydration. On IVF Uncontrolled hypertension on admission. Patient says she had no power at home and she was not taking her medications for the past 3 or 4 days. Resume home medications. Add when necessary hydralazine. Monitor vital signs closely. Adjust medications as need. Anxiety/depression continue home medications stable at this time DVT prophylaxis SCD/teds, Lovenox per renal dose Discussed Condition With Patient, nurse, ED physician Casie King MD Apr 12, 2017 19:50
[2017-04-12] MEDS: METOPROLOL TARTRATE 25 MG TAB PO SCH (20:13)
[2017-04-12] MEDS: SODIUM CHLORIDE 0.9% FLUSH 10 ML FLUSH IV FLUSH SCH (20:45)
[2017-04-12] MEDS: DOCUSATE SODIUM 50 MG/SENNA 8.6 MG TAB PO SCH (20:58)
[2017-04-12] MEDS: ENOXAPARIN SODIUM 30 MG/0.3 ML SYRINGE SQ SCH (21:02)
[2017-04-12] MEDS: INSULIN ASPART SUPPLEMENTAL SCALE SQ SCH (21:02)
[2017-04-12] MEDS: hydrALAZINE HCL 10 MG TAB PO PRN (21:23)
[2017-04-13] VITALS (8 sets, daily range): BP systolic 160–221; BP diastolic 80–88; PULSE 74–94; RESP 16–18; TEMP 97.9–98.8; O2SAT 94–97
[2017-04-13] MEDS: ACETAMINOPHEN/HYDROcodone 325 MG/5 MG TAB PO PRN ×4 (05:45→20:54)
[2017-04-13] MEDS: SODIUM CHLOR 0.9% 1000 ML INJ 1,000 ML IV SCH ×2 (05:45→14:47)
[2017-04-13 06:57] LABS: AUTOMATED NEUTROPHIL # 4.9 TH/MM3 (1.8-7.7); BASOPHIL % 0.5 % (0.0-2.0); EOSINOPHIL # 0.1 TH/MM3 (0-0.4); EOSINOPHIL % 1.2 % (0.0-4.0); HEMATOCRIT 24.8 % (35.0-46.0); HEMO FLAGS DIFF FINAL; LYMPH % 22.3 % (9.0-44.0); LYMPHOCYTE # 1.6 TH/MM3 (1.0-4.8); MEAN CELL VOLUME 95.9 FL (80.0-100.0); MEAN CORPUSCULAR HGB CONC 33.4 % (32.0-36.0); MONO % 9.4 % (0.0-8.0); NEUT % 66.6 % (16.0-70.0); PLATELET COUNT 153 TH/MM3 (150-450); RED BLOOD COUNT 2.59 MIL/MM3 (4.00-5.30); RED CELL DISTRIBUTION WIDTH 15.6 % (11.6-17.2); WHITE BLOOD COUNT 7.4 TH/MM3 (4.0-11.0)
[2017-04-13] MEDS ORDERED: glipiZIDE 5 MG TAB PO SCH (07:00)
[2017-04-13 07:11] LABS: BICARBONATE 18.1 MEQ/L (21.0-32.0); POTASSIUM 3.9 MEQ/L (3.5-5.1)
[2017-04-13] MEDS: INSULIN ASPART SUPPLEMENTAL SCALE SQ SCH ×4 (08:00→20:48)
[2017-04-13] MEDS ORDERED: NIFEdipine 30 MG SUSTAINED RELEASE TAB PO SCH (09:00)
[2017-04-13] MEDS: SODIUM CHLORIDE 0.9% FLUSH 10 ML FLUSH IV FLUSH SCH ×2 (09:59→20:49)
[2017-04-13] MEDS: METOPROLOL TARTRATE 25 MG TAB PO SCH ×2 (09:59→20:54)
[2017-04-13] MEDS: DOCUSATE SODIUM 50 MG/SENNA 8.6 MG TAB PO SCH ×2 (10:00→20:54)
[2017-04-13] MEDS ORDERED: FOLIC ACID 1 MG TAB PO ONE (13:45)
[2017-04-13] MEDS ORDERED: LORazepam 2 MG TAB PO PRN (13:45)
[2017-04-13] MEDS ORDERED: LORazepam 1 MG TAB PO PRN (13:45)
[2017-04-13] MEDS ORDERED: FLUMAZENIL 0.5 MG/5 ML VIAL IV PUSH PRN (13:45)
[2017-04-13] MEDS ORDERED: THIAMINE HCL 100 MG TAB PO ONE (13:45)
[2017-04-13] MEDS ORDERED: MULTIVITAMIN TAB PO ONE (13:45)
[2017-04-13] MEDS ORDERED: LORazepam 2 MG/ML VIAL IV PUSH PRN ×4 (13:45)
[2017-04-13] MEDS: hydrALAZINE HCL 10 MG TAB PO PRN (14:20)
[2017-04-13 14:39] LABS: TRANSFERRIN IRON PROFILE 199 MG/DL (200-360)
[2017-04-13 14:40] LABS: MAGNESIUM 1.6 MG/DL (1.5-2.5)
[2017-04-13 14:53] LABS: CREATINE KINASE 126 U/L (26-192); FERRITIN 89 NG/ML (8-252); LDL CHOLESTEROL 98 MG/DL (0-99)
--- NOTE | 2017-04-13 15:48 | HHI.PR ---
Subjective Remarks Follow-up on patient with altered mental status. Patient seen and examined. Patient has multiple complaints in the room. She is demanding to be seen by a physician. She complains of pain throughout the right upper extremity. She is not sure if she injured the right upper extremity at the time of her fall several days ago. She is not sure why she fell several days ago. She cannot recall if she hit her head. She cannot recall if she lost consciousness. She is a very poor historian. She denies any recent illness. She denies any fever or chills. She denies any chest pain or shortness of breath. She denies any lightheadedness, dizziness or palpations. She denies any urinary difficulties, diarrhea or constipation. She is oriented 3. She is saying that she cannot stay another night in this hospital. She is concerned about the cost of this hospitalization. 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 Objective Vitals Vital Signs Date Time Temp Pulse Resp B/P (MAP) Pulse Ox O2 Delivery O2 Flow Rate FiO2 04/13/17 11:38 98.8 75 16 178/85 (116) 95 04/13/17 11:32 18 04/13/17 07:27 98.1 85 18 160/80 (106) 96 04/13/17 05:04 21 04/13/17 03:51 98.0 75 18 183/83 (116) 97 04/12/17 23:33 98.0 70 18 133/69 (90) 97 04/12/17 23:10 04/12/17 22:20 66 162/76 (104) 04/12/17 21:52 181/79 (113) 04/12/17 21:47 68 183/84 (117) 04/12/17 21:38 69 18 191/92 (125) 96 Room Air 04/12/17 19:54 73 20 195/87 (123) 96 Room Air 04/12/17 17:30 70 13 186/81 (116) 95 Room Air 04/12/17 17:15 68 13 215/95 (135) 94 Room Air 04/12/17 16:56 70 14 220/97 (138) 97 Room Air 04/12/17 15:27 89 22 222/104 (143) 97 Room Air I/O 12/604/12/17 04/12/17 04/13/17 04/13/17 04/13/17 06:59 14:59 22:59 06:59 14:59 22:59 Intake Total 1320 ml Balance 1320 ml Intake Oral 320 ml IV Total 1000 ml # Voids 1 Result Diagram: 04/13/17 0536 04/13/17 0536 Imaging Last Impressions Head CT 04/12/17 1454 Signed Impressions: Service Date/Time: Wednesday, April 12, 2017 17:38 - CONCLUSION: 1. 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 2. No evidence of acute infarct, hemorrhage , mass or edema. Mike Viera MD Pelvis X-Ray 04/12/17 0000 Signed Impressions: Service Date/Time: Wednesday, April 12, 2017 15:34 - CONCLUSION: 1. 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 2. No fracture Scottie Manley MD Chest X-Ray 04/12/17 0000 Signed Impressions: Service Date/Time: Wednesday, April 12, 2017 15:02 - CONCLUSION: No acute disease. Mike Viera MD Objective Remarks GENERAL: This is a well-nourished, well-developed patient, in no apparent distress. Awake and alert. SKIN: Cool and dry. Few scattered superficial abrasions anterior lower legs secondary to her dog scratching her, does not appear infected. HEAD: Atraumatic. Normocephalic. EYES: Extraocular motions intact. No scleral icterus. No injection or drainage. ENT: Nose without bleeding or purulent drainage. Airway patent. NECK: Trachea midline. CARDIOVASCULAR: Regular rate and rhythm without murmurs, gallops, or rubs. RESPIRATORY: Clear to auscultation. Breath sounds equal bilaterally. No wheezes , rales, or rhonchi. GASTROINTESTINAL: Abdomen soft, non-tender, nondistended. No hepato-splenomegaly , or palpable masses. No guarding. MUSCULOSKELETAL: Limited range of motion in the entire right upper extremity. Tenderness to palpation along the entire right upper extremity. No obvious swelling appreciated. NEUROLOGICAL: Awake and alert. Able to move all extremities spontaneously except for right upper extremity. Normal speech. Medications and IVs Current Medications Medications (Trade) Dose Ordered Sig/Princess Route Start Time Stop Time Status Last Admin Sodium Chloride 1,000 ml @ 100 mls/hr Q10H IV 04/12/17 18:47 04/13/17 05:45 (NS Flush) 2 ml UNSCH PRN IV FLUSH 04/12/17 19:00 (NS Flush) 2 ml BID IV FLUSH 04/12/17 21:00 04/13/17 09:59 (Tylenol) 650 mg Q4H PRN PO 04/12/17 19:00 (Zofran Inj) 4 mg Q6H PRN IVP 04/12/17 19:00 (Narcan Inj) 0.4 mg UNSCH PRN IV PUSH 04/12/17 19:00 (Vicenta-Colace) 1 tab BID PO 04/12/17 21:00 04/13/17 10:00 (Milk Of Magnesia Liq) 30 ml Q12H PRN PO 04/12/17 19:00 (Senokot) 17.2 mg Q12H PRN PO 04/12/17 19:00 (Dulcolax Supp) 10 mg DAILY PRN RECTAL 04/12/17 19:00 (Lactulose Liq) 30 ml DAILY PRN PO 04/12/17 19:00 (Lovenox Inj) 30 mg Q24H SQ 04/12/17 20:00 04/12/17 21:02 (Glucotrol) 2.5 mg BIDAC PO 04/13/17 07:00 Future Hold 04/13/17 05:46 (Emblem 5-325 Mg) 1 tab Q4H PRN PO 04/12/17 19:00 04/13/17 10:00 (Zanaflex) 2 mg HS PO 04/12/17 21:00 Future Hold 04/12/17 22:40 (D50w (Vial) Inj) 50 ml UNSCH PRN IV PUSH 04/12/17 19:00 (Glucagon Inj) 1 mg UNSCH PRN OTHER 04/12/17 19:00 (NovoLOG SUPPLEMENTAL SCALE) 1 ACHS SLIDING SCALE SQ 04/12/17 21:00 04/12/17 21:02 Ceftriaxone Sodium 1000 mg/ Sodium Chloride 100 ml @ 200 mls/hr Q24H IV 04/12/17 18:00 (Apresoline) 10 mg Q6HR PRN PO 04/12/17 19:00 04/13/17 14:20 (Lopressor) 25 mg Q12HR PO 04/12/17 21:00 04/13/17 09:59 (Pill Splitter) 1 ea UNSCH PRN OTHER 04/12/17 19:15 (Vasotec Inj) 2.5 mg Q6H PRN IV PUSH 04/12/17 22:15 (Procardia Xl) 60 mg DAILY PO 04/14/17 09:00 (Vitamin B1) 100 mg DAILY PO 04/14/17 09:00 (Theragran) 1 tab DAILY PO 04/14/17 09:00 (Folate) 1 mg DAILY PO 04/14/17 09:00 (Romazicon Inj) 0.2 mg Q1M PRN IV PUSH 04/13/17 13:45 (Ativan) 1 mg Q4H PRN PO 04/13/17 13:45 (Ativan Inj) 1 mg Q4H PRN IV PUSH 04/13/17 13:45 (Ativan) 2 mg Q2H PRN PO 04/13/17 13:45 (Ativan Inj) 2 mg Q2H PRN IV PUSH 04/13/17 13:45 (Ativan Inj) 2 mg Q1H PRN IV PUSH 04/13/17 13:45 (Ativan Inj) 2 mg Q15M PRN IV PUSH 04/13/17 13:45 A/P Assessment and Plan 71-year-old female with past medical history significant for chronic kidney disease stage IV, hypertension, medication noncompliance and previous history of alcohol abuse admitted with altered mental status. Altered mental status/encephalopathy s/p fall at home with details unknown - Suspect multifactorial in patient with history of medication noncompliance , alcohol use, dehydration and possible UTI. ?Hypoglycemic episode - CT the head revealed small old cerebellar infarcts, no acute intracranial abnormality - IVF hydration - blood culture negative x 1 day - obtain 2-D echo - Carotid dopplers ordered - MRI brain ordered - Obtain B12, TSH, HgbA1c and fasting lipid profile - continuous cardiac monitoring - PT/OT - ST cognitive evaluation - discontinue patients home dose of Zanaflex Bacteruria ? UTI - Asymptomatic - Patient started empirically on ceftriaxone. Continue. - Follow up on final urine culture results RUE pain and limited ROM s/p fall - obtain imaging right upper extremity rule out fracture - OT eval/tx - pain management with bowel regimen Hypertension - uncontrolled - medication noncompliance - BP not optimized on current antihypertensive dose - Continue on Lopressor 25mg BID and increase dose of nifedipine XL to 60mg daily - Vasotec 2.5mg IV q6h DM - Patient's blood sugars running low - Hold home dose of glipizide - Continue Accu-Cheks and insulin sliding scale - Obtain hemoglobin A1c level GIAN on CKD stage 4 - Unsure of patient's baseline - may be near baseline - creatinine 4.03/GFR 11 at admission - Most recent creatinine in the system 3.47/GFR13 02/28/17 - obtain renal US - Avoid nephrotoxic agents - Improving - Continue with IV fluid hydration - Monitor kidney function History of alcohol abuse - Ethyl alcohol less than 3 at admit - UDS ordered - [facility] protocol - Monitor for any signs or symptoms of alcohol withdrawal - fall/seizure precautions - Thiamine/folic acid/multivitamin daily Anemia, normocytic normochromic - Suspect chronic as last hemoglobin in the system 9.8 02/28/17 - No reports of bleeding - Hemoccult stool testing - iron studies - Follow CBC as indicated DVT prophylaxis - Patient on Lovenox Discussed with patient and Agnes Contreras Apr 13, 2017 15:48
--- NOTE | 2017-04-13 16:31 | EKG ---
Date Performed: 04/12/2017 Time Performed: 14:53:52 PTAGE: 71 years EKG: SINUS TACHYCARDIA RIGHT BUNDLE BRANCH BLOCK LEFT VENTRICULAR HYPERTROPHY AND ST-T CHANGE AB NORMAL ECG Since PREVIOUS TRACING , no significant change noted PREVIOUS TRACIN02/28/2017 14.05 DOCTOR: Mack Esqueda Interpretating Date/Time 04/13/2017 16:31:11
--- NOTE | 2017-04-13 16:33 | RADRPT ---
EXAM DATE/TIME: 04/13/2017 15:36 [facility] COMPARISON: No previous studies available for comparison. INDICATIONS : Pain due to fall. MEDICAL HISTORY : None. SURGICAL HISTORY : None. ENCOUNTER: Initial ACUITY: 3 days PAIN SCORE: 10/10 LOCATION: Right upper extremity hand FINDINGS: 3 views of the right hand demonstrates no fracture or dislocation. The bones are mildly under mineral ized. There is osteoarthritis at multiple locations including the first CMC joint and most of the int erphalangeal joints being most severe at the second digit distal interphalangeal joint. No soft tissu e abnormality is identified. There is severe arterial vascular calcification. CONCLUSION: 1. No acute right hand abnormality is identified. There is osteoarthritis at multiple locations. 2. Severe arterial vascular calcification. Antonio Perea MD on April 13, 2017 at 16:30 Board Certified Radiologist. This report was verified electronically.
--- NOTE | 2017-04-13 16:34 | RADRPT ---
EXAM DATE/TIME: 04/13/2017 15:41 [facility] COMPARISON: No previous studies available for comparison. INDICATIONS : Pain due to fall. MEDICAL HISTORY : None. SURGICAL HISTORY : None. ENCOUNTER: Initial ACUITY: 3 days PAIN SCORE: 10/10 LOCATION: Right upper extremity elbow. FINDINGS: Four views of the right elbow demonstrate no fracture or dislocation. No joint effusion is visualized . Ossification adjacent to the medial upper condyle is chronic. No soft tissue abnormality or radiopa que foreign body is identified. There is arterial vascular calcification. CONCLUSION: No acute abnormality is identified. Antonio Perea MD on April 13, 2017 at 16:32 Board Certified Radiologist. This report was verified electronically.
--- NOTE | 2017-04-13 16:35 | RADRPT ---
EXAM DATE/TIME: 04/13/2017 15:57 [facility] COMPARISON: No previous studies available for comparison. INDICATIONS : Pain due to fall. MEDICAL HISTORY : None. SURGICAL HISTORY : None. ENCOUNTER: Initial ACUITY: 3 days PAIN SCORE: 10/10 LOCATION: Right upper extremity shoulder FINDINGS: 4 views of the right shoulder demonstrate no fracture or dislocation. The acromioclavicular joint is intact but demonstrates mild osteoarthritis change. The visualized soft tissues demonstrate no abnorm ality. Visualized portions of the right lung are clear. No displaced rib fracture is seen. CONCLUSION: Osteoarthritis of the acromioclavicular joint. No acute abnormality is identified. Antonio Perea MD on April 13, 2017 at 16:33 Board Certified Radiologist. This report was verified electronically.
--- NOTE | 2017-04-13 16:35 | RADRPT ---
EXAM DATE/TIME: 04/13/2017 15:54 [facility] COMPARISON: No previous studies available for comparison. INDICATIONS : Pain due to fall. MEDICAL HISTORY : None. SURGICAL HISTORY : None. ENCOUNTER: Initial ACUITY: 3 days PAIN SCORE: 10/10 LOCATION: Right upper extremity humerus FINDINGS: 2 views right humerus demonstrate no fracture or dislocation. No soft tissue abnormality or radiopaqu e foreign body is identified. There is osteoarthritis at the acromioclavicular joint. CONCLUSION: No acute abnormality is identified. Antonio Perea MD on April 13, 2017 at 16:33 Board Certified Radiologist. This report was verified electronically.
--- NOTE | 2017-04-13 16:50 | MG ---
cc: BEKAH CARDOSO MD Lab No: Date: 04/13/2017 Age: 71 Sex: F Race: DATE OF 1945 REFERRING PHYSICIAN <<0:23>> MEDICAL HISTORY Heart attack, also diabetes mellitus, arthritis, alcohol use, depression, anxiety, hypertension, HI and chest pain admitted for altered mental status. MEDICATIONS 1. Thiamine 2. Theragran. 3. Folic acid. 4. Procardia. 5. Lopressor. 6. Lovenox. 7. [place]. DESCRIPTION The background activity is 89 Hz alpha located posteriorly, with posterior to anterior gradient. There is excessive eye blinking artifact. Hyperventilation was omitted. Photic stimulation did not elicit driving response. There were no electrographic seizures or epileptiform discharges noted. INTERPRETATION This is a normal awake EEG there are no electrographic seizures / ictal activity or epileptiform discharges noted. Clinical correlation is recommended. Bekah Cardoso MD [facility]/ /4:24 PM /4:43 PM [place]
[2017-04-13] MEDS: ENALAPRILAT 2.5 MG/2 ML VIAL IV PUSH PRN (19:02)
--- NOTE | 2017-04-13 19:27 | RADRPT ---
EXAM DATE/TIME: 04/13/2017 18:18 [facility] COMPARISON: No previous studies available for comparison. EXTERNAL COMPARISON : [facility], US KIDNEY, BILATERAL, January 03, 2017 INDICATIONS : Increased BUN/Creatinine. MEDICAL HISTORY : Myocardial infarction. Hypertension. Arthritis. Irregular heartbeat. Ulcer. . Depression. An xiety. Measles. DVT. Diabetes. Renal disease. SURGICAL HISTORY : None. ENCOUNTER: Initial ACUITY: > 1 year PAIN SCORE: 4/10 LOCATION: Bilateral flank MEASUREMENTS: RIGHT KIDNEY: 9.4 x 4.9 x 5.5 cm LEFT KIDNEY: 9.6 x 5.0 x 6.2 cm FINDINGS: The kidneys are increased in echogenicity suggesting medical renal disease. There are 2 cysts within the right kidney measuring 4.5 x 2.9 x 3.7 cm in the midpole and 1.1 x 0.8 x 0.8 cm and lower pole. T here is one cyst within the lower pole the left kidney measuring 2.4 x 2.2 x 1.7 cm. No solid mass is noted. No hydronephrosis or stone is noted on either side. The urinary bladder is nondistended and t herefore its evaluation is limited. CONCLUSION: 1. Echogenic kidneys suggesting medical renal disease. 2. Multiple bilateral renal cysts. 3. Limited evaluation of the urinary bladder which is nondistended. Wili Mcneil MD on April 13, 2017 at 19:24 Board Certified Radiologist. This report was verified electronically.
--- NOTE | 2017-04-13 19:31 | RADRPT ---
EXAM DATE/TIME: 04/13/2017 18:31 [facility] COMPARISON: No previous studies available for comparison. INDICATIONS : Syncope. MEDICAL HISTORY : Myocardial infarction. Hypertension. Arthritis. Irregular heartbeat. Ulcer. . Depression. An xiety. Measles. DVT. Diabetes. Renal disease. SURGICAL HISTORY : None. ENCOUNTER: Initial ACUITY: 1 day PAIN SCORE: 4/10 LOCATION: Bilateral neck PEAK SYSTOLIC VELOCITIES (cm/sec): ICA/CCA RATIO: Right: 0.9 Left: 1.5 ICA: Right: 100 Left: 127 CCA: Right: 106 Left: 87 ECA: Right: 163 Left: 139 VERTEBRAL: Right: 66 antegrade Left: 73 antegrade Elevated flow velocities and ICA/CCA ratios have been found to correlate with increased degrees of vessel stenosis, calculated as percentage of diameter relative to a normal segment of distal ICA/CCA FINDINGS: RIGHT CAROTID: No significant stenosis is visualized. Moderate calcified atherosclerotic plaque is noted within the right carotid bulb and proximal internal carotid artery. There is mild elevation of the peak systoli c velocity of the right ECA suggesting 50-69% stenosis. The waveforms are within normal limits. LEFT CAROTID: No significant stenosis is visualized. Moderate calcified atherosclerotic plaque is noted within the left carotid bulb and proximal internal carotid artery. The waveforms are within normal limits. VERTEBRAL ARTERIES: Antegrade flow is seen in both vertebral arteries. MISCELLANEOUS: None. CONCLUSION: 1. No hemodynamically significant stenosis of the internal carotid arteries. 2. Mild elevation of the peak systolic velocity of the right ECA suggesting 50-69% stenosis. Wili Mcneil MD on April 13, 2017 at 19:26 Board Certified Radiologist. This report was verified electronically.
[2017-04-13] MEDS: ENOXAPARIN SODIUM 30 MG/0.3 ML SYRINGE SQ SCH (20:54)
--- NOTE | 2017-04-13 21:16 | RADRPT ---
EXAM DATE/TIME: 04/13/2017 20:04 [facility] COMPARISON: No previous studies available for comparison. INDICATIONS : CVA. MEDICAL HISTORY : Hypertension. Diabetes mellitus type 2. Myocardial infarction. SURGICAL HISTORY : None. ENCOUNTER: Initial ACUITY: 1 day PAIN SCORE: 0/10 LOCATION: Head. TECHNIQUE: Multiplanar, multisequence MRI of the brain was performed without contrast. FINDINGS: CEREBRUM: The ventricles are normal for age. No evidence of midline shift, mass lesion, hemorrhage or acute in farction. No extraaxial fluid collections are seen. Old lacunar infarct involving the left thalamus is noted. The pituitary gland and suprasellar cistern are normal in configuration. WHITE MATTER: Minimal periventricular white matter small vessel ischemic changes are noted bilaterally. POSTERIOR FOSSA: Old lacunar infarcts are noted within the bilateral cerebellar hemispheres. The brainstem is intact. The 4th ventricle is midline. The cerebellopontine angle is unremarkable. The cerebellar tonsils ar e normal in position. DIFFUSION IMAGING: No focal areas of restricted diffusion are seen. No evidence of acute infarction. EXTRACRANIAL: The visualized portions of the orbits and paranasal sinuses are unremarkable. CONCLUSION: 1. No acute infarct, acute hemorrhage, midline shift or extra axial fluid collections. 2. Old lacunar infarcts involving the left thalamus and bilateral cerebellar hemispheres. 3. Minimal periventricular white matter small vessel ischemic changes bilaterally. Wili Mcneil MD on April 13, 2017 at 21:11 Board Certified Radiologist. This report was verified electronically.
[2017-04-13 22:29] LABS: HEMOGLOBIN A1a 1.7 %; HEMOGLOBIN A1b 1.8 %; HEMOGLOBIN F 0.3 %; HEMOGLOBIN LA1C 2.5 %; HEMOGLOBIN P3 6.3 %
[2017-04-13 22:30] LABS: HEMOGLOBIN Ao 82.9 %
[2017-04-14] VITALS (12 sets, daily range): BP systolic 147–245; BP diastolic 67–108; PULSE 63–85; RESP 13–20; TEMP 97.1–99.2; O2SAT 96–98
[2017-04-14] MEDS: hydrALAZINE HCL 10 MG TAB PO PRN ×3 (00:03→13:16)
[2017-04-14] MEDS: SODIUM CHLOR 0.9% 1000 ML INJ 1,000 ML IV SCH (00:47)
[2017-04-14] MEDS: ACETAMINOPHEN/HYDROcodone 325 MG/5 MG TAB PO PRN ×2 (02:12→08:16)
[2017-04-14] MEDS: ENALAPRILAT 2.5 MG/2 ML VIAL IV PUSH PRN ×3 (02:12→13:15)
[2017-04-14] MEDS: INSULIN ASPART SUPPLEMENTAL SCALE SQ SCH ×4 (08:00→20:46)
[2017-04-14] MEDS: FOLIC ACID 1 MG TAB PO SCH (08:14)
[2017-04-14] MEDS: NIFEdipine 60 MG SUSTAINED RELEASE TAB PO SCH (08:14)
[2017-04-14] MEDS: THIAMINE HCL 100 MG TAB PO SCH (08:15)
[2017-04-14] MEDS: MULTIVITAMIN TAB PO SCH (08:15)
[2017-04-14] MEDS: SODIUM CHLORIDE 0.9% FLUSH 10 ML FLUSH IV FLUSH SCH ×2 (08:17→20:46)
[2017-04-14] MEDS: METOPROLOL TARTRATE 25 MG TAB PO SCH ×2 (08:18→20:45)
[2017-04-14] MEDS: DOCUSATE SODIUM 50 MG/SENNA 8.6 MG TAB PO SCH ×2 (08:19→20:45)
--- NOTE | 2017-04-14 11:03 | HHI.PR ---
Subjective Remarks The patient wanted to go home. She was having an echocardiogram done. She said that her right arm really hurts and she can't move it too much. She says she has been working with physical therapy. She requests a regular diet. Objective Vitals Vital Signs Date Time Temp Pulse Resp B/P (MAP) Pulse Ox O2 Delivery O2 Flow Rate FiO2 04/14/17 08:12 225/92 (136) 04/14/17 07:36 97.1 85 20 245/108 (153) 96 04/14/17 03:02 98.0 75 18 178/87 (117) 96 04/14/17 02:06 223/95 (137) 04/13/17 23:56 97.9 74 18 221/88 (132) 94 04/13/17 21:16 98.6 78 18 185/86 (119) 96 04/13/17 20:56 97 21 04/13/17 19:00 194/88 (123) 04/13/17 18:03 98.2 94 18 97 04/13/17 16:24 18 04/13/17 11:38 98.8 75 16 178/85 (116) 95 I/O 04/13/17 04/13/17 04/13/17 04/14/17 04/14/17 04/14/17 07:00 15:00 23:00 07:00 15:00 23:00 Intake Total 525 ml Balance 525 ml IV Total 200 ml Other 325 ml Result Diagram: 04/13/17 0536 04/13/17 0536 Imaging Last Impressions Shoulder X-Ray 04/13/17 0000 Signed Impressions: Service Date/Time: April 15:57 - CONCLUSION: Osteoarthritis of the acromioclavicular joint. No acute abnormality is identified. Antonio Perea MD Renal Ultrasound 04/13/17 0000 Signed Impressions: Service Date/Time: April 18:18 - CONCLUSION: 1. Echogenic kidneys suggesting medical renal disease. 2. Multiple bilateral renal cysts. 3. Limited evaluation of the urinary bladder which is nondistended. Wili Mcneil MD Humerus X-Ray 04/13/17 0000 Signed Impressions: Service Date/Time: April 15:54 - CONCLUSION: No acute abnormality is identified. Antonio Perea MD Hand X-Ray 04/13/17 0000 Signed Impressions: Service Date/Time: April 15:36 - CONCLUSION: 1. No acute right hand abnormality is identified. There is osteoarthritis at multiple locations. 2. Severe arterial vascular calcification. Antonio Perea MD Elbow X-Ray 04/13/17 0000 Signed Impressions: Service Date/Time: April 15:41 - CONCLUSION: No acute abnormality is identified. Antonio Perea MD Carotid Artery Ultrasound 04/13/17 Signed Impressions: Service Date/Time: April 18:31 - CONCLUSION: 1. No hemodynamically significant stenosis of the internal carotid arteries. 2. Mild elevation of the peak systolic velocity of the right ECA suggesting 50-69%% stenosis. Wili Mcneil MD Brain MRI 04/13/17 0000 Signed Impressions: Service Date/Time: April 20:04 - CONCLUSION: 1. No acute infarct, acute hemorrhage, midline shift or extra axial fluid collections. 2. Old lacunar infarcts involving the left thalamus and bilateral cerebellar hemispheres. 3. Minimal periventricular white matter small vessel ischemic changes bilaterally. Wili Mcneil MD Head CT 04/12/17 1454 Signed Impressions: Service Date/Time: Wednesday, April 12, 2017 17:38 - CONCLUSION: 1. 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 2. No evidence of acute infarct, hemorrhage , mass or edema. Mike Viera MD Pelvis X-Ray 04/12/17 Signed Impressions: Service Date/Time: Wednesday, April 12, 2017 15:34 - CONCLUSION: 1. 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 2. No fracture Scottie Manley MD Chest X-Ray 04/12/17 0000 Signed Impressions: Service Date/Time: Wednesday, April 12, 2017 15:02 - CONCLUSION: No acute disease. Mike Viera MD Objective Remarks GENERAL: This is a well-nourished, well-developed patient, in no apparent distress. SKIN: Cool and dry. HEAD: Atraumatic. Normocephalic. EYES: Extraocular motions intact. No scleral icterus. No injection or drainage. ENT: Nose without bleeding or purulent drainage. Airway patent. NECK: Trachea midline. CARDIOVASCULAR: Regular rate and rhythm without murmurs, gallops, or rubs. RESPIRATORY: Clear to auscultation. Breath sounds equal bilaterally. No wheezes , rales, or rhonchi. GASTROINTESTINAL: Abdomen soft, non-tender, nondistended. No hepato-splenomegaly , or palpable masses. No guarding. MUSCULOSKELETAL: Limited range of motion in the entire right upper extremity. Tenderness to palpation along the entire right upper extremity. No obvious swelling appreciated. NEUROLOGICAL: Awake and alert. Able to move all extremities spontaneously except for right upper extremity. Normal speech. Medications and IVs Current Medications Medications (Trade) Dose Ordered Sig/Princess Route Start Time Stop Time Status Last Admin (NS Flush) 2 ml UNSCH PRN IV FLUSH 04/12/17 19:00 (NS Flush) 2 ml BID IV FLUSH 04/12/17 21:00 04/13/17 09:59 (Tylenol) 650 mg Q4H PRN PO 04/12/17 19:00 (Zofran Inj) 4 mg Q6H PRN IVP 04/12/17 19:00 (Narcan Inj) 0.4 mg UNSCH PRN IV PUSH 04/12/17 19:00 (Vicenta-Colace) 1 tab BID PO 04/12/17 21:00 04/13/17 20:54 (Milk Of Magnesia Liq) 30 ml Q12H PRN PO 04/12/17 19:00 (Senokot) 17.2 mg Q12H PRN PO 04/12/17 19:00 (Dulcolax Supp) 10 mg DAILY PRN RECTAL 04/12/17 19:00 (Lactulose Liq) 30 ml DAILY PRN PO 04/12/17 19:00 (Lovenox Inj) 30 mg Q24H SQ 04/12/17 20:00 04/13/17 20:54 (Glucotrol) 2.5 mg BIDAC PO 04/13/17 07:00 Future Hold 04/13/17 05:46 (Lynch 5-325 Mg) 1 tab Q4H PRN PO 04/12/17 19:00 04/14/17 08:16 (D50w (Vial) Inj) 50 ml UNSCH PRN IV PUSH 04/12/17 19:00 (Glucagon Inj) 1 mg UNSCH PRN OTHER 04/12/17 19:00 (NovoLOG SUPPLEMENTAL SCALE) 1 ACHS SLIDING SCALE SQ 04/12/17 21:00 04/12/17 21:02 (Apresoline) 10 mg Q6HR PRN PO 04/12/17 19:00 04/14/17 08:15 (Pill Splitter) 1 ea UNSCH PRN OTHER 04/12/17 19:15 (Vasotec Inj) 2.5 mg Q6H PRN IV PUSH 04/12/17 22:15 04/14/17 08:15 (Procardia Xl) 60 mg DAILY PO 04/14/17 09:00 04/14/17 08:14 (Vitamin B1) 100 mg DAILY PO 04/14/17 09:00 04/14/17 08:15 (Theragran) 1 tab DAILY PO 04/14/17 09:00 04/14/17 08:15 (Folate) 1 mg DAILY PO 04/14/17 09:00 04/14/17 08:14 (Romazicon Inj) 0.2 mg Q1M PRN IV PUSH 04/13/17 13:45 (Ativan) 1 mg Q4H PRN PO 04/13/17 13:45 (Ativan Inj) 1 mg Q4H PRN IV PUSH 04/13/17 13:45 (Ativan) 2 mg Q2H PRN PO 04/13/17 13:45 (Ativan Inj) 2 mg Q2H PRN IV PUSH 04/13/17 13:45 (Ativan Inj) 2 mg Q1H PRN IV PUSH 04/13/17 13:45 (Ativan Inj) 2 mg Q15M PRN IV PUSH 04/13/17 13:45 (Lopressor) 50 mg Q12HR PO 04/14/17 21:00 Nicardipine HCl 25 mg/Sodium Chloride 250 ml @ 50 mls/hr TITRATE PRN IV 04/14/17 12:00 (Lynch 10-325 Mg) 1 tab Q4H PRN PO 04/14/17 11:30 UNV A/P Assessment and Plan Altered mental status/encephalopathy S/p fall at home with details unknown. Suspect multifactorial in patient with history of medication noncompliance, alcohol use, dehydration and possible UTI. CT the head revealed small old cerebellar infarcts, no acute intracranial abnormality. Brain MRI and carotid Doppler without acute abnormality. - blood cultures. - obtain 2-D echo. - continuous cardiac monitoring. - PT/OT/ST cognitive evaluation. - discontinue patients home dose of Zanaflex. RUE pain and limited ROM s/p fall Imaging negative for acute pathology. - PT/ OT eval/tx. - pain management with bowel regimen. - CT scan elbow ordered. Hypertensive urgency Systolic elevated over 200. - increase Lopressor to 50 mg BID and increase dose of nifedipine XL to 60 mg daily - transfer to ICU and start Cardene gtt. DM Well controlled. A1c 5.5%. - Hold home dose of glipizide - Continue Accu-Cheks and insulin sliding scale GIAN on CKD, stage 4 Creatinine 4.03/GFR 11 at admission. May be near baseline. - Avoid nephrotoxic agents and follow BMP. - outpt nephrology follow-up. History of alcohol abuse The pt wants to quit drinking. - [facility] protocol. - Monitor for any signs or symptoms of alcohol withdrawal. - fall/seizure precautions. - Thiamine/folic acid/multivitamin daily. - referral to cessation programs upon discharge. Anemia, normocytic normochromic Likely s/t renal disease. - monitor as needed. DVT prophylaxis - Patient on Lovenox Discharge Planning Transfer to ICU Alexis Arzate DO Apr 14, 2017 11:03
[2017-04-14] MEDS ORDERED: METOPROLOL TARTRATE 25 MG TAB PO ONE (11:30)
[2017-04-14] MEDS: ACETAMINOPHEN/HYDROcodone 325 MG/10 MG TAB PO PRN ×3 (13:16→21:43)
--- NOTE | 2017-04-14 13:42 | ECHRPT ---
Indication: CVA/TIA CONCLUSIONS The left ventricular systolic function is low normal with an estimated ejection fraction in the rang e of 50- 55%. Doppler parameters are consistent with impaired left ventricular relaxtion (grade 1 diastolic dysfun ction). Moderate concentric left ventricular hypertrophy. Mild mitral valve regurgitation. Trace aortic valve regurgitation. There is trace tricuspid valve regurgitation. BP: 223 / 95 HR: 94 Rhythm: MEASUREMENTS (Male / Female) Normal Values Technical Quality:Good 2D ECHO LV Diastolic Diameter PLAX 4.3 cm 4.2 - 5.9 / 3.9 - 5.3 cm LV Systolic Diameter PLAX 3.4 cm IVS Diastolic Thickness 1.9 cm 0.6 - 1.0 / 0.6 - 0.9 cm LVPW Diastolic Thickness 1.3 cm 0.6 - 1.0 / 0.6 - 0.9 cm LV Relative Wall Thickness 0.7 RV Internal Dim ED PLAX 2.8 cm LA Systolic Diameter LX 4.1 cm 3.0 - 4.0 / 2.7 - 3.8 cm DOPPLER AV Peak Velocity 214.0 cm/s AV Peak Gradient 18.3 mmHg LVOT Peak Velocity 152.0 cm/s LVOT Peak Gradient 9.2 mmHg MR Peak Velocity 500.0 cm/s MR Peak Gradient 100.0 mmHg Mitral E Point Velocity 83.9 cm/s Mitral A Point Velocity 133.0 cm/s Mitral E to A Ratio 0.6 TR Peak Velocity 262.0 cm/s TR Peak Gradient 27.5 mmHg Right Atrial Pressure 5.0 mmHg Pulmonary Artery Systolic Pressu 32.5 mmHg Right Ventricular Systolic Press 32.5 mmHg FINDINGS LEFT VENTRICLE Normal left ventricular size. Moderate concentric left ventricular hypertrophy. The left ventricular systolic function is low normal with an estimated ejection fraction in the rang e of 50- 55%. No regional wall motion abnormalities are present. Doppler parameters are consistent with impaired left ventricular relaxtion (grade 1 diastolic dysfun ction). RIGHT VENTRICLE Normal right ventricular size and systolic function. LEFT ATRIUM The left atrial size is upper limits of normal. RIGHT ATRIUM The right atrial size is normal. ATRIAL SEPTUM Normal atrial septal thickness. AORTA The aortic root and proximal ascending aorta are normal in size on limited imaging. MITRAL VALVE Mitral annular calcification is present. Mild mitral valve regurgitation. No mitral valve stenosis. AORTIC VALVE Aortic valve sclerosis is present. No aortic valve stenosis. Trace aortic valve regurgitation. TRICUSPID VALVE Structurally normal tricuspid valve. No tricuspid valve stenosis. There is trace tricuspid valve regurgitation. PULMONARY VALVE Trivial pulmonary valve regurgitation. VESSELS The inferior vena cava is normal in size. PERICARDIUM No pericardial effusion. Merlin Khan DO (Electronically Signed) Final Date:14 April 2017 13:40
[2017-04-14 13:50] LABS: AUTOMATED NEUTROPHIL # 7.2 TH/MM3 (1.8-7.7); BASOPHIL % 0.3 % (0.0-2.0); EOSINOPHIL # 0.1 TH/MM3 (0-0.4); EOSINOPHIL % 0.6 % (0.0-4.0); HEMATOCRIT 27.3 % (35.0-46.0); HEMO FLAGS DIFF FINAL; LYMPH % 14.2 % (9.0-44.0); LYMPHOCYTE # 1.3 TH/MM3 (1.0-4.8); MEAN CELL VOLUME 94.5 FL (80.0-100.0); MEAN CORPUSCULAR HEMOGLOBIN 31.4 PG (27.0-34.0); MEAN CORPUSCULAR HGB CONC 33.2 % (32.0-36.0); MONO % 7.2 % (0.0-8.0); NEUT % 77.7 % (16.0-70.0); PLATELET COUNT 188 TH/MM3 (150-450); RED BLOOD COUNT 2.89 MIL/MM3 (4.00-5.30); RED CELL DISTRIBUTION WIDTH 15.2 % (11.6-17.2); WHITE BLOOD COUNT 9.3 TH/MM3 (4.0-11.0)
[2017-04-14 14:08] LABS: BICARBONATE 18.8 MEQ/L (21.0-32.0); POTASSIUM 3.8 MEQ/L (3.5-5.1)
[2017-04-14] MEDS: niCARdipine INJ 25 MG in SODIUM CHLOR 0.9% 250 ML INJ 240 ML IV PRN ×2 (17:01→21:42)
[2017-04-14] MEDS: ENOXAPARIN SODIUM 30 MG/0.3 ML SYRINGE SQ SCH (20:45)
[2017-04-15] VITALS (14 sets, daily range): BP systolic 137–181; BP diastolic 64–81; PULSE 64–88; RESP 12–24; TEMP 98.1–98.8; O2SAT 97–98
[2017-04-15] MEDS: ACETAMINOPHEN/HYDROcodone 325 MG/10 MG TAB PO PRN ×4 (02:01→20:58)
[2017-04-15] MEDS: niCARdipine INJ 25 MG in SODIUM CHLOR 0.9% 250 ML INJ 240 ML IV PRN ×3 (02:54→13:16)
[2017-04-15 07:16] LABS: HEMATOCRIT 25.2 % (35.0-46.0); MEAN CELL VOLUME 96.5 FL (80.0-100.0); MEAN CORPUSCULAR HEMOGLOBIN 31.7 PG (27.0-34.0); MEAN CORPUSCULAR HGB CONC 32.9 % (32.0-36.0); PLATELET COUNT 184 TH/MM3 (150-450); RED BLOOD COUNT 2.61 MIL/MM3 (4.00-5.30); RED CELL DISTRIBUTION WIDTH 14.9 % (11.6-17.2); REVIEW FLAG FINAL; WHITE BLOOD COUNT 8.7 TH/MM3 (4.0-11.0)
[2017-04-15 07:42] LABS: BICARBONATE 18.8 MEQ/L (21.0-32.0); MAGNESIUM 1.7 MG/DL (1.5-2.5); POTASSIUM 3.9 MEQ/L (3.5-5.1)
[2017-04-15] MEDS: INSULIN ASPART SUPPLEMENTAL SCALE SQ SCH (08:00)
[2017-04-15] MEDS: FOLIC ACID 1 MG TAB PO SCH (08:01)
[2017-04-15] MEDS: METOPROLOL TARTRATE 25 MG TAB PO SCH ×2 (08:01→20:58)
[2017-04-15] MEDS: THIAMINE HCL 100 MG TAB PO SCH (08:01)
[2017-04-15] MEDS: DOCUSATE SODIUM 50 MG/SENNA 8.6 MG TAB PO SCH ×2 (08:01→20:59)
[2017-04-15] MEDS: NIFEdipine 60 MG SUSTAINED RELEASE TAB PO SCH (08:01)
[2017-04-15] MEDS: MULTIVITAMIN TAB PO SCH (08:02)
[2017-04-15] MEDS: SODIUM CHLORIDE 0.9% FLUSH 10 ML FLUSH IV FLUSH SCH ×2 (09:00→20:59)
[2017-04-15] MEDS ORDERED: NIFEdipine 30 MG SUSTAINED RELEASE TAB PO ONE (10:00)
--- NOTE | 2017-04-15 10:02 | HHI.PR ---
Subjective Remarks The pt wanted to go home. She said she was too weak to hold up her utensils and can't eat. She thinks her elbow pain is s/t gout. She says her son will be here tomorrow. Discussed with nursing. Objective Vitals Vital Signs Date Time Temp Pulse Resp B/P (MAP) Pulse Ox O2 Delivery O2 Flow Rate FiO2 04/15/17 08:11 98 Nasal Cannula 2.00 04/15/17 08:00 98.3 66 14 169/77 (107) 98 04/15/17 08:00 79 04/15/17 07:02 77 146/63 04/15/17 06:00 79 04/15/17 04:36 97 Nasal Cannula 2.00 04/15/17 04:00 73 04/15/17 04:00 98.1 73 12 137/64 (88) 97 04/15/17 02:54 72 146/70 04/15/17 02:00 71 04/15/17 00:00 98.3 64 14 152/69 (96) 98 04/15/17 00:00 64 04/14/17 23:34 61 163/71 04/14/17 22:00 63 04/14/17 21:42 66 178/78 04/14/17 20:00 73 04/14/17 20:00 98.2 73 15 147/67 (93) 98 04/14/17 17:01 78 187/81 04/14/17 16:21 14 04/14/17 16:00 99.2 77 13 168/76 (106) 98 04/14/17 13:50 81 194/86 (122) 04/14/17 13:15 217/93 (134) 04/14/17 12:49 81 I/O 04/14/17 04/14/17 04/14/17 04/15/17 04/15/17 04/15/17 07:00 15:00 23:00 07:00 15:00 23:00 Intake Total 450 ml 250 ml Output Total 900 ml Balance -450 ml 250 ml Intake Oral 200 ml IV Total 250 ml 250 ml Output Urine Total 900 ml # Voids 1 3 # Bowel Movements 0 Result Diagram: 04/15/17 0632 04/15/17 0606 Imaging Last Impressions Shoulder X-Ray 04/13/17 0000 Signed Impressions: Service Date/Time: April 15:57 - CONCLUSION: Osteoarthritis of the acromioclavicular joint. No acute abnormality is identified. Antonio Perea MD Renal Ultrasound 04/13/17 0000 Signed Impressions: Service Date/Time: April 18:18 - CONCLUSION: 1. Echogenic kidneys suggesting medical renal disease. 2. Multiple bilateral renal cysts. 3. Limited evaluation of the urinary bladder which is nondistended. Wili Mcneil MD Humerus X-Ray 04/13/17 0000 Signed Impressions: Service Date/Time: April 15:54 - CONCLUSION: No acute abnormality is identified. Antonio Perea MD Hand X-Ray 04/13/17 0000 Signed Impressions: Service Date/Time: April 15:36 - CONCLUSION: 1. No acute right hand abnormality is identified. There is osteoarthritis at multiple locations. 2. Severe arterial vascular calcification. Antonio Perea MD Elbow X-Ray 04/13/17 0000 Signed Impressions: Service Date/Time: April 15:41 - CONCLUSION: No acute abnormality is identified. Antonio Perea MD Carotid Artery Ultrasound 04/13/17 0000 Signed Impressions: Service Date/Time: April 18:31 - CONCLUSION: 1. No hemodynamically significant stenosis of the internal carotid arteries. 2. Mild elevation of the peak systolic velocity of the right ECA suggesting 50-69%% stenosis. Wili Mcneil MD Brain MRI 04/13/17 0000 Signed Impressions: Service Date/Time: April 20:04 - CONCLUSION: 1. No acute infarct, acute hemorrhage, midline shift or extra axial fluid collections. 2. Old lacunar infarcts involving the left thalamus and bilateral cerebellar hemispheres. 3. Minimal periventricular white matter small vessel ischemic changes bilaterally. Wili Mcneil MD Head CT 04/12/17 1454 Signed Impressions: Service Date/Time: Wednesday, April 12, 2017 17:38 - CONCLUSION: 1. 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 2. No evidence of acute infarct, hemorrhage , mass or edema. Mike Viera MD Pelvis X-Ray 04/12/17 0000 Signed Impressions: Service Date/Time: Wednesday, April 12, 2017 15:34 - CONCLUSION: 1. 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 2. No fracture Scottie Manley MD Chest X-Ray 04/12/17 0000 Signed Impressions: Service Date/Time: Wednesday, April 12, 2017 15:02 - CONCLUSION: No acute disease. Mike Viera MD Objective Remarks GENERAL: This is a well-nourished, well-developed patient, in no apparent distress. SKIN: Cool and dry. HEAD: Atraumatic. Normocephalic. EYES: Extraocular motions intact. No scleral icterus. No injection or drainage. ENT: Nose without bleeding or purulent drainage. Airway patent. NECK: Trachea midline. CARDIOVASCULAR: Regular rate and rhythm without murmurs, gallops, or rubs. RESPIRATORY: Clear to auscultation. Breath sounds equal bilaterally. No wheezes , rales, or rhonchi. GASTROINTESTINAL: Abdomen soft, non-tender, nondistended. No hepato-splenomegaly , or palpable masses. No guarding. MUSCULOSKELETAL: Limited range of motion in the entire right upper extremity. Tenderness to palpation along the entire right upper extremity. No obvious swelling appreciated. NEUROLOGICAL: Awake and alert. Able to move all extremities spontaneously except for right upper extremity. Normal speech. PSYCH: Anxious. Medications and IVs Current Medications Medications (Trade) Dose Ordered Sig/Princess Route Start Time Stop Time Status Last Admin (NS Flush) 2 ml UNSCH PRN IV FLUSH 04/12/17 19:00 (NS Flush) 2 ml BID IV FLUSH 04/12/17 21:00 04/14/17 20:46 (Tylenol) 650 mg Q4H PRN PO 04/12/17 19:00 (Zofran Inj) 4 mg Q6H PRN IVP 04/12/17 19:00 (Narcan Inj) 0.4 mg UNSCH PRN IV PUSH 04/12/17 19:00 (Vicenta-Colace) 1 tab BID PO 04/12/17 21:00 04/15/17 08:01 (Milk Of Magnesia Liq) 30 ml Q12H PRN PO 04/12/17 19:00 (Senokot) 17.2 mg Q12H PRN PO 04/12/17 19:00 (Dulcolax Supp) 10 mg DAILY PRN RECTAL 04/12/17 19:00 (Lactulose Liq) 30 ml DAILY PRN PO 04/12/17 19:00 (Lovenox Inj) 30 mg Q24H SQ 04/12/17 20:00 04/14/17 20:45 (Glucotrol) 2.5 mg BIDAC PO 04/13/17 07:00 Future Hold 04/13/17 05:46 ([place] 5-325 Mg) 1 tab Q4H PRN PO 04/12/17 19:00 04/14/17 08:16 (D50w (Vial) Inj) 50 ml UNSCH PRN IV PUSH 04/12/17 19:00 (Glucagon Inj) 1 mg UNSCH PRN OTHER 04/12/17 19:00 (Apresoline) 10 mg Q6HR PRN PO 04/12/17 19:00 04/14/17 13:16 (Pill Splitter) 1 ea UNSCH PRN OTHER 04/12/17 19:15 (Vasotec Inj) 2.5 mg Q6H PRN IV PUSH 04/12/17 22:15 04/14/17 13:15 (Vitamin B1) 100 mg DAILY PO 04/14/17 09:00 04/15/17 08:01 (Theragran) 1 tab DAILY PO 04/14/17 09:00 04/15/17 08:02 (Folate) 1 mg DAILY PO 04/14/17 09:00 04/15/17 08:01 (Romazicon Inj) 0.2 mg Q1M PRN IV PUSH 04/13/17 13:45 (Ativan) 1 mg Q4H PRN PO 04/13/17 13:45 (Ativan Inj) 1 mg Q4H PRN IV PUSH 04/13/17 13:45 (Ativan) 2 mg Q2H PRN PO 04/13/17 13:45 (Ativan Inj) 2 mg Q2H PRN IV PUSH 04/13/17 13:45 (Ativan Inj) 2 mg Q1H PRN IV PUSH 04/13/17 13:45 (Ativan Inj) 2 mg Q15M PRN IV PUSH 04/13/17 13:45 (Lopressor) 50 mg Q12HR PO 04/14/17 21:00 04/15/17 08:01 Nicardipine HCl 25 mg/Sodium Chloride 250 ml @ 50 mls/hr TITRATE PRN IV 04/14/17 12:00 04/15/17 07:02 ([place] 10-325 Mg) 1 tab Q4H PRN PO 04/14/17 11:30 04/15/17 08:02 (Procardia Xl) 90 mg DAILY PO 04/16/17 09:00 UNV (Procardia) 30 mg ONCE ONCE PO 04/15/17 10:00 04/15/17 10:01 UNV A/P Assessment and Plan Altered mental status/encephalopathy S/p fall at home with details unknown. Suspect multifactorial in patient with history of medication noncompliance, alcohol use, dehydration and possible UTI. CT the head revealed small old cerebellar infarcts, no acute intracranial abnormality. Brain MRI and carotid Doppler without acute abnormality. - blood cultures NGTD. - continuous cardiac monitoring. - PT/OT/ST cognitive evaluation. - discontinue patients home dose of Zanaflex. Hypertensive urgency Systolic elevated over 200. Transferred to ICU on a Cardene gtt. - increased Lopressor to 50 mg BID and increased dose of nifedipine XL to 90 mg daily - try to wean off Cardene gtt. Chronic diastolic CHF Echo with EF 50-55%, grade 1 diastolic dysfunction. Likely s/t uncontrolled HTN. - blood pressure control. - continue cardiac regimen. RUE pain and limited ROM s/p fall Imaging negative for acute pathology. Possibly s/t gout per pt. - PT/ OT eval/tx. - pain management with bowel regimen. - CT scan elbow deferred by pt. - trial of prednisone for gout. DM Well controlled. A1c 5.5%. - Hold home dose of glipizide - Continue Accu-Cheks and insulin sliding scale GIAN on CKD, stage 4 Creatinine 4.03/GFR 11 at admission. May be near baseline at this time. - Avoid nephrotoxic agents and follow BMP. - outpt nephrology follow-up. History of alcohol abuse The pt wants to quit drinking. - [facility] protocol. - Monitor for any signs or symptoms of alcohol withdrawal. - fall/seizure precautions. - Thiamine/folic acid/multivitamin daily. - referral to cessation programs upon discharge. Anemia, normocytic normochromic Likely s/t renal disease. - monitor as needed. DVT prophylaxis - Patient on Lovenox Discharge Planning Will likely need placement. Alexis Arzate DO Apr 15, 2017 10:02
[2017-04-15] MEDS: ENALAPRILAT 2.5 MG/2 ML VIAL IV PUSH PRN ×2 (10:22→15:59)
[2017-04-15] MEDS: predniSONE 20 MG TAB PO SCH (10:31)
[2017-04-15] MEDS: ENOXAPARIN SODIUM 30 MG/0.3 ML SYRINGE SQ SCH (20:58)
[2017-04-16] VITALS (13 sets, daily range): BP systolic 126–160; BP diastolic 58–75; PULSE 63–79; RESP 10–22; TEMP 97.3–99.6; O2SAT 94–99
[2017-04-16] MEDS: ACETAMINOPHEN/HYDROcodone 325 MG/10 MG TAB PO PRN ×5 (00:38→20:31)
[2017-04-16] MEDS: predniSONE 20 MG TAB PO SCH (08:58)
[2017-04-16] MEDS: FOLIC ACID 1 MG TAB PO SCH (08:58)
[2017-04-16] MEDS: THIAMINE HCL 100 MG TAB PO SCH (08:59)
[2017-04-16] MEDS: METOPROLOL TARTRATE 25 MG TAB PO SCH ×2 (08:59→20:30)
[2017-04-16] MEDS: MULTIVITAMIN TAB PO SCH (08:59)
[2017-04-16] MEDS: DOCUSATE SODIUM 50 MG/SENNA 8.6 MG TAB PO SCH ×2 (08:59→20:30)
[2017-04-16] MEDS: SODIUM CHLORIDE 0.9% FLUSH 10 ML FLUSH IV FLUSH SCH ×2 (09:00→20:00)
[2017-04-16] MEDS: NIFEdipine 90 MG SUSTAINED RELEASE TAB PO SCH (09:00)
--- NOTE | 2017-04-16 09:43 | HHI.PR ---
Subjective Remarks The patient reports that her gout pain is a lot better. She says her friend is coming by later today. She really wants to be discharged from the hospital. She was eating breakfast. Discussed with nursing at the bedside. Objective Vitals Vital Signs Date Time Temp Pulse Resp B/P (MAP) Pulse Ox O2 Delivery O2 Flow Rate FiO2 04/16/17 08:18 95 Nasal Cannula 2.00 04/16/17 06:00 79 04/16/17 04:00 79 04/16/17 04:00 97.9 66 22 160/74 (102) 99 04/16/17 00:00 98.1 63 22 128/58 (81) 99 04/16/17 00:00 78 04/15/17 21:08 98 Nasal Cannula 2.00 04/15/17 20:00 75 04/15/17 20:00 98.8 74 24 153/68 (96) 04/15/17 18:00 79 04/15/17 16:00 98.4 83 14 181/81 (114) 98 04/15/17 16:00 79 04/15/17 14:00 79 04/15/17 13:16 81 174/79 04/15/17 12:00 79 04/15/17 12:00 98.4 88 14 171/81 (111) 98 04/15/17 10:00 79 I/O 04/15/17 04/15/17 04/15/17 04/16/17 04/16/17 04/16/17 07:00 15:00 23:00 07:00 15:00 23:00 Intake Total 450 ml 250 ml 362 ml Output Total 900 ml 550 ml Balance -450 ml 250 ml -550 ml 362 ml Intake Oral 200 ml IV Total 250 ml 250 ml 362 ml Output Urine Total 900 ml 550 ml # Voids 3 3 2 # Bowel Movements 0 2 Result Diagram: 04/15/17 0632 04/15/17 0606 Imaging Last Impressions Shoulder X-Ray 04/13/17 0000 Signed Impressions: Service Date/Time: April 15:57 - CONCLUSION: Osteoarthritis of the acromioclavicular joint. No acute abnormality is identified. Antonio Perea MD Renal Ultrasound 04/13/17 0000 Signed Impressions: Service Date/Time: April 18:18 - CONCLUSION: 1. Echogenic kidneys suggesting medical renal disease. 2. Multiple bilateral renal cysts. 3. Limited evaluation of the urinary bladder which is nondistended. Wili Mcneil MD Humerus X-Ray 04/13/17 0000 Signed Impressions: Service Date/Time: April 15:54 - CONCLUSION: No acute abnormality is identified. Antonio Perea MD Hand X-Ray 04/13/17 0000 Signed Impressions: Service Date/Time: April 15:36 - CONCLUSION: 1. No acute right hand abnormality is identified. There is osteoarthritis at multiple locations. 2. Severe arterial vascular calcification. Antonio Perea MD Elbow X-Ray 04/13/17 0000 Signed Impressions: Service Date/Time: April 15:41 - CONCLUSION: No acute abnormality is identified. Antonio Perea MD Carotid Artery Ultrasound 04/13/17 0000 Signed Impressions: Service Date/Time: April 18:31 - CONCLUSION: 1. No hemodynamically significant stenosis of the internal carotid arteries. 2. Mild elevation of the peak systolic velocity of the right ECA suggesting 50-69%% stenosis. Wili Mcneil MD Brain MRI 04/13/17 0000 Signed Impressions: Service Date/Time: April 20:04 - CONCLUSION: 1. No acute infarct, acute hemorrhage, midline shift or extra axial fluid collections. 2. Old lacunar infarcts involving the left thalamus and bilateral cerebellar hemispheres. 3. Minimal periventricular white matter small vessel ischemic changes bilaterally. Wili Mcneil MD Head CT 04/12/17 1454 Signed Impressions: Service Date/Time: Wednesday, April 12, 2017 17:38 - CONCLUSION: 1. 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 2. No evidence of acute infarct, hemorrhage , mass or edema. Mike Viera MD Pelvis X-Ray 04/12/17 0000 Signed Impressions: Service Date/Time: Wednesday, April 12, 2017 15:34 - CONCLUSION: 1. 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 2. No fracture Scottie Manley MD Chest X-Ray 04/12/17 0000 Signed Impressions: Service Date/Time: Wednesday, April 12, 2017 15:02 - CONCLUSION: No acute disease. Mike Viera MD Objective Remarks GENERAL: This is a well-nourished, well-developed patient, in no apparent distress. SKIN: Cool and dry. HEAD: Atraumatic. Normocephalic. EYES: Extraocular motions intact. No scleral icterus. No injection or drainage. ENT: Nose without bleeding or purulent drainage. Airway patent. NECK: Trachea midline. CARDIOVASCULAR: Regular rate and rhythm without murmurs, gallops, or rubs. RESPIRATORY: Clear to auscultation. Breath sounds equal bilaterally. No wheezes , rales, or rhonchi. GASTROINTESTINAL: Abdomen soft, non-tender, nondistended. No hepato-splenomegaly , or palpable masses. No guarding. MUSCULOSKELETAL: Limited range of motion of the right upper extremity, improved. No obvious swelling appreciated. NEUROLOGICAL: Awake and alert. Able to move all extremities spontaneously except for right upper extremity. Normal speech. PSYCH: Slightly anxious. Medications and IVs Current Medications Medications (Trade) Dose Ordered Sig/Princess Route Start Time Stop Time Status Last Admin (NS Flush) 2 ml UNSCH PRN IV FLUSH 04/12/17 19:00 (NS Flush) 2 ml BID IV FLUSH 04/12/17 21:00 04/16/17 09:00 (Tylenol) 650 mg Q4H PRN PO 04/12/17 19:00 (Zofran Inj) 4 mg Q6H PRN IVP 04/12/17 19:00 (Narcan Inj) 0.4 mg UNSCH PRN IV PUSH 04/12/17 19:00 (Vicenta-Colace) 1 tab BID PO 04/12/17 21:00 04/16/17 08:59 (Milk Of Magnesia Liq) 30 ml Q12H PRN PO 04/12/17 19:00 (Senokot) 17.2 mg Q12H PRN PO 04/12/17 19:00 (Dulcolax Supp) 10 mg DAILY PRN RECTAL 04/12/17 19:00 (Lactulose Liq) 30 ml DAILY PRN PO 04/12/17 19:00 (Lovenox Inj) 30 mg Q24H SQ 04/12/17 20:00 04/15/17 20:58 ([place] 5-325 Mg) 1 tab Q4H PRN PO 04/12/17 19:00 04/14/17 08:16 (D50w (Vial) Inj) 50 ml UNSCH PRN IV PUSH 04/12/17 19:00 (Glucagon Inj) 1 mg UNSCH PRN OTHER 04/12/17 19:00 (Apresoline) 10 mg Q6HR PRN PO 04/12/17 19:00 04/14/17 13:16 (Pill Splitter) 1 ea UNSCH PRN OTHER 04/12/17 19:15 (Vasotec Inj) 2.5 mg Q6H PRN IV PUSH 04/12/17 22:15 04/15/17 15:59 (Vitamin B1) 100 mg DAILY PO 04/14/17 09:00 04/16/17 08:59 (Theragran) 1 tab DAILY PO 04/14/17 09:00 04/16/17 08:59 (Folate) 1 mg DAILY PO 04/14/17 09:00 04/16/17 08:58 (Romazicon Inj) 0.2 mg Q1M PRN IV PUSH 04/13/17 13:45 (Ativan) 1 mg Q4H PRN PO 04/13/17 13:45 (Ativan Inj) 1 mg Q4H PRN IV PUSH 04/13/17 13:45 (Ativan) 2 mg Q2H PRN PO 04/13/17 13:45 (Ativan Inj) 2 mg Q2H PRN IV PUSH 04/13/17 13:45 04/15/17 10:22 (Ativan Inj) 2 mg Q1H PRN IV PUSH 04/13/17 13:45 (Ativan Inj) 2 mg Q15M PRN IV PUSH 04/13/17 13:45 (Lopressor) 50 mg Q12HR PO 04/14/17 21:00 04/16/17 08:59 Nicardipine HCl 25 mg/Sodium Chloride 250 ml @ 50 mls/hr TITRATE PRN IV 04/14/17 12:00 04/15/17 13:16 ([place] 10-325 Mg) 1 tab Q4H PRN PO 04/14/17 11:30 04/16/17 09:07 (Procardia Xl) 90 mg DAILY PO 04/16/17 09:00 04/16/17 09:00 (Deltasone) 40 mg DAILY PO 04/15/17 10:00 04/19/17 09:01 04/16/17 08:58 A/P Assessment and Plan Altered mental status/encephalopathy S/p fall at home with details unknown. Suspect multifactorial in patient with history of medication noncompliance, alcohol use, dehydration and possible UTI. CT the head revealed small old cerebellar infarcts, no acute intracranial abnormality. Brain MRI and carotid Doppler without acute abnormality. - blood cultures NGTD. - continuous cardiac monitoring. - PT/OT/ST cognitive evaluation. - discontinue patients home dose of Zanaflex. Hypertensive urgency Systolic elevated over 200. Transferred to ICU on a Cardene gtt. - increased Lopressor to 50 mg BID and increased dose of nifedipine XL to 90 mg daily - Still on Cardene gtt, will try to wean off Cardene gtt. Chronic diastolic CHF Echo with EF 50-55%, grade 1 diastolic dysfunction. Likely s/t uncontrolled HTN. - blood pressure control. - continue cardiac regimen. RUE pain and limited ROM s/p fall/ Gout Imaging negative for acute pathology. Possibly s/t gout per pt. - PT/ OT eval/tx. - pain management with bowel regime. - trial of prednisone for gout. Improved. DM Well controlled. A1c 5.5%. - Hold home dose of glipizide - Continue Accu-Cheks and insulin sliding scale GIAN on CKD, stage 4 Creatinine 4.03/GFR 11 at admission. May be near baseline at this time. - Avoid nephrotoxic agents and follow BMP. - outpt nephrology follow-up. History of alcohol abuse The pt wants to quit drinking. - CIWA protocol. - Monitor for any signs or symptoms of alcohol withdrawal. - fall/seizure precautions. - Thiamine/folic acid/multivitamin daily. - referral to cessation programs upon discharge. Anemia, normocytic normochromic Likely s/t renal disease. - monitor as needed. DVT prophylaxis - Patient on Lovenox Discharge Planning Will likely need placement. Alexis Arzate DO Apr 16, 2017 09:43
[2017-04-16] MEDS: ENOXAPARIN SODIUM 30 MG/0.3 ML SYRINGE SQ SCH (20:30)
[2017-04-17] VITALS (11 sets, daily range): BP systolic 126–174; BP diastolic 66–84; PULSE 65–86; RESP 15–22; TEMP 97.7–98.6; O2SAT 95–100
[2017-04-17] MEDS: ACETAMINOPHEN/HYDROcodone 325 MG/5 MG TAB PO PRN (03:47)
[2017-04-17] MEDS: NIFEdipine 90 MG SUSTAINED RELEASE TAB PO SCH (09:00)
[2017-04-17] MEDS ORDERED: cloNIDine HCL 0.1 MG TAB PO PRN (09:00)
[2017-04-17] MEDS: FOLIC ACID 1 MG TAB PO SCH (09:07)
[2017-04-17] MEDS: predniSONE 20 MG TAB PO SCH (09:07)
[2017-04-17] MEDS: MULTIVITAMIN TAB PO SCH (09:07)
[2017-04-17] MEDS: SODIUM CHLORIDE 0.9% FLUSH 10 ML FLUSH IV FLUSH SCH (09:07)
[2017-04-17] MEDS: DOCUSATE SODIUM 50 MG/SENNA 8.6 MG TAB PO SCH (09:08)
[2017-04-17] MEDS: ACETAMINOPHEN/HYDROcodone 325 MG/10 MG TAB PO PRN ×2 (09:08→13:33)
[2017-04-17] MEDS: METOPROLOL TARTRATE 25 MG TAB PO SCH (09:08)
[2017-04-17] MEDS: THIAMINE HCL 100 MG TAB PO SCH (09:08)
[2017-04-17] MEDS ORDERED: CLON.1 PO (15:09)
[2017-04-17] MEDS ORDERED: NIFE90TA2 PO (15:09)
[2017-04-17] MEDS ORDERED: PRED5TAB PO (15:09)
[2017-04-17] MEDS ORDERED: METO50TA PO (15:09)
--- NOTE | 2017-04-17 15:12 | HHI.FF ---
Face to Face Verification Diagnosis: (1) Altered mental status Physical Therapy Order: Evaluate and Treat Instructions: Generalized Weakness I have seen patient Nancy Olivas on 04/17/17. My clinical findings support the need for the requested home health care services because: Ltd mobility - disease progression Patient has SOB Deconditioned w/ increased weakness Limited ability to care for self High risk of falls I certify that my clinical findings support that this patient is homebound because: Hx COPD- exertion dyspnea/weakness Unsteady gait/balance Unsafe to leave home unassisted Unable to use public transportation Santi Villa MD Apr 17, 2017 15:12
--- NOTE | 2017-04-17 15:18 | HHI.DS ---
Discharge Summary Admission Date Apr 14, 2017 at 11:21 Discharge Date: Apr 17, 2017 Admitting Diagnosis AMS (1) Altered mental status ICD Code: R41.82 - Altered mental status, unspecified Status: Acute Procedures None Brief History - From Admission 71 year old female presents to the emergency department via EMS for evaluation of AMS. According to EMS, the patient will be oriented to person, place, time, but will say bizarre things and act confused. The patient was apparently found in her apartment drenched in sweat with the oven on and unshowered. She apparently also had several days worth of food out and her place was disheveled. Apparently, she usually takes immaculate care of herself and her house. She lives alone. The patient does not make sense when she tells he was going on. She states her electricity was turned off 3 days ago, but her landlord has so she couldn't call him. Then she states that the remote to the TV belongs to her landlord and he is out of town. She also states that she turned on the oven, but states her electricity off. She is not making any sense. However, she does know that she is at the hospital, the year is 2016, we are in [place] and the president is Stephen Ash. The patient denies any pain to me. She states that she just wants to go home. The patient does report history of hypertension and states she has not been taking her medications. She states she has not eaten or drank in the past 3 days. Patient does state that she fell on Monday and then got herself up to the couch. Exacerbating alleviating factors. Moderate severity. According to chart, the patient has history of alcoholism, however the patient is denying drinking alcohol. Patient says she had no power in her house and she is expected to have our back in 1 or 2 days. Says she was not taking her medications for the past 3 days and her blood pressure is elevated because she failed taking her medications. She is also hungry says she was not eating for the past 3 days. She is alert and oriented by 3 at this time. CBC/BMP: 04/15/17 0632 04/15/17 0606 Significant Findings Laboratory Tests Test 04/14/17 16:15 04/15/17 06:06 04/15/17 06:32 Blood Urea Nitrogen 32 MG/DL (7-18) Creatinine 2.91 MG/DL (0.50-1.00) Chloride Level 114 MEQ/L (98-107) Carbon Dioxide Level 18.8 MEQ/L (21.0-32.0) Estimat Glomerular Filtration Rate 16 ML/MIN (>89) Red Blood Count 2.61 MIL/MM3 (4.00-5.30) Hemoglobin 8.3 GM/DL (11.6-15.3) Hematocrit 25.2 % (35.0-46.0) PE at Discharge GENERAL: This is a well-nourished, well-developed patient, in no apparent distress. SKIN: Cool and dry. HEAD: Atraumatic. Normocephalic. EYES: Extraocular motions intact. No scleral icterus. No injection or drainage. ENT: Nose without bleeding or purulent drainage. Airway patent. NECK: Trachea midline. CARDIOVASCULAR: Regular rate and rhythm without murmurs, gallops, or rubs. RESPIRATORY: Clear to auscultation. Breath sounds equal bilaterally. No wheezes , rales, or rhonchi. GASTROINTESTINAL: Abdomen soft, non-tender, nondistended. No hepato-splenomegaly , or palpable masses. No guarding. MUSCULOSKELETAL: Limited range of motion of the right upper extremity, improved. No obvious swelling appreciated. NEUROLOGICAL: Awake and alert. Able to move all extremities spontaneously except for right upper extremity. Normal speech. PSYCH: Slightly anxious. Hospital Course Mrs. Olivas is a 71-year-old female. She came in secondary to altered mental status and encephalopathy. She was having falls at home. Etiology may be related to alcohol abuse, noncompliance with medications, and UTI. She's been treated for these conditions and is improved. Patient is recommended to discharge to residential facility for further rehabilitation. She refuses residential facility and was discharged home. She says she has family members at home that will help her. Discharge was transiently held secondary to hypertensive urgency but this is now improved. Some of the hypertensive urgency may be related to steroids and possible mild withdrawal from alcohol. Blood pressure treatments have been adjusted for better control. At this point patient is medically stable for discharge to residential facilities continue rehabilitation, she refuses this option so is discharged to home with home PT and continued care by patient's family. Pt Condition on Discharge: Stable Discharge Disposition: Disch w/ Home Health Serv Discharge Time: <= 30 minutes Discharge Instructions DIET: Follow Instructions for: As Tolerated, No Restrictions Activities you can perform: Regular-No Restrictions Follow up Referrals: PCP Follow-up - 2 Weeks New Medications: Metoprolol Tartrate (Metoprolol Tartrate) 50 Mg Tab 50 MG PO BID for Blood Pressure Management, #60 TAB 0 Refills Prednisone (Prednisone) 5 Mg Tab 5 MG PO DAILY for Inflammation, #6 TAB 0 Refills Clonidine (Catapres) 0.1 Mg Tab 0.1 MG PO Q6H PRN for Systolic Blood Pressure > 160, #60 TAB Nifedipine (Nifedipine ER) 90 Mg Tab 90 MG PO DAILY for Blood Pressure Management, #30 TAB Continued Medications: Glipizide (Glipizide) 5 Mg Tab 2.5 MG PO BIDAC for Blood Sugar Management, #60 TAB 0 Refills Take 30 minutes before a meal Hydrocodone-Acetaminophen (Hydrocodone-Acetaminophen) 5-325 mg Tab 1 TAB PO Q4H PRN for PAIN, TAB 0 Refills Temazepam (Temazepam) 15 Mg Cap 15 MG PO HS PRN for INSOMNIA, #30 CAP 0 Refills Tizanidine (Tizanidine) 2 Mg Tab 2 MG PO HS for Muscle Spasm, TAB 0 Refills Discontinued Medications: Nifedipine ER 24 HR (Nifedipine ER 24 HR) 30 Mg Tab 30 MG PO DAILY, #30 TAB 0 Refills Santi Villa MD Apr 17, 2017 15:18
[2017-04-17] MEDS ORDERED: WALKER WHEELS/F1 MIS (16:58)
== END 2017-04-17 18:35 | disposition home health service (06) | DRG 71 ==
LOC: NEPC 14:15 → NEDA 18:32 → NEPFCDU 23:12 → OBSVTOIN 04-14 11:21 → HIMN 04-14 15:42
PROVIDERS: ADMIT Hospitalist; ATTEND Hospitalist
DX: G93.40 Encephalopathy, unspecified (principal); N18.4 Chronic kidney disease, stage 4 (severe); E11.22 Type 2 diabetes mellitus with diabetic chronic kidney disease; N17.9 Acute kidney failure, unspecified; I13.0 Hypertensive heart and chronic kidney disease with heart failure and stage 1 through stage 4 chronic kidney disease, or unspecified chronic kidney disease; I50.32 Chronic diastolic (congestive) heart failure; N39.0 Urinary tract infection, site not specified; E86.0 Dehydration; E11.649 Type 2 diabetes mellitus with hypoglycemia without coma; I16.0 Hypertensive urgency; D63.1 Anemia in chronic kidney disease; I25.2 Old myocardial infarction; I45.10 Unspecified right bundle-branch block; M10.9 Gout, unspecified; M54.30 Sciatica, unspecified side; R00.0 Tachycardia, unspecified; F10.20 Alcohol dependence, uncomplicated; F32.9 Major depressive disorder, single episode, unspecified; F41.9 Anxiety disorder, unspecified; Y90.0 Blood alcohol level of less than 20 mg/100 ml; W19.XXXA Unspecified fall, initial encounter; Z72.89 Other problems related to lifestyle; Z91.14 Patient's other noncompliance with medication regimen; Z79.84 Long term (current) use of oral hypoglycemic drugs
CPT/HCPCS: 70450; 70551; 71010; 72170; 73030; 73060; 73080; 73130; 76775; 76937; 80048; 80053; 80061; 80307; 81001; 82140; 82550; 82607; 82728; 82746; 82948; 83036; 83540; 83550; 83605; 83735; 84100; 84443; 84484; 85025; 85027; 85610; 85730; 87040; 87086; 87641; 93005; 93306; 93880; 95819; 96361; 96365; 96372; 96375; 96376; G0378; G8987-GP; G8988-GP; G9168-GN; G9169-GN; J0696; J1650; J1815; J2060; J7030; J7050; J7512; P9612

== ENCOUNTER → 2017-09-28 | Day surgery (SDC) | payer OTHER ==
[~2017-09-28] VITALS: Ht 152.4 cm; Wt 78.9 kg
[~2017-09-28] MED LIST changes: +*HYDROmorphone PF 0.5 MG/0.5 ML PERIprocedure ONLY ONE; +*LABETALOL HCL 100 MG/20 ML VIAL PERIprocedural Use ONLY ONE; +*morphine SULFATE 8 MG/ML PERIprocedure ONLY ONE; +ACETAMINOPHEN 1000 MG/100 ML 100 ML IV ONE; +ACETAMINOPHEN/HYDROcodone 325 MG/5 MG TAB PO PRN; +BUPIVACAINE/EPINEPHRINE 0.25% PF 10 ML VIAL INFIL ONE; -CHLO25CA9 PO; +CHLORHEXIDINE GLUCONATE 2 % 1 PACK (2 CLOTHS) TOPICAL PRN; +CLON.1 PO; +DO NOT ADM ANY ANTICOAGULANT DRUGS PRN; +GLYCOPYRROLATE 1 MG/5 ML SYRINGE IV PUSH ONE; +LACTATED RINGER'S 1000 ML IV PRN; +LIDOCAINE HCL 1% PF 5 ML SYRINGE OTHER ONE; +METO50TA PO; +METOPROLOL TARTRATE 25 MG TAB PO PRN; +NEOSTIGMINE 5 MG/5 ML SYRINGE IV PUSH ONE; -NIFE30TA61 PO; +NIFE90TA2 PO; +NORC5TAB PO; +ONDANSETRON HCL 4 MG/2 ML VIAL IV ONE; +ONDANSETRON HCL 4 MG/2 ML VIAL ONE; +ONDANSETRON ODT 4 MG TAB PO PRN; +POVIDONE IODINE 5% (ANTISEPSIS KIT) 4 APPLICATIONS EACH NARE PRN; +PRED5TAB PO; +PROPOFOL 200 MG/20 ML AMP IV ONE; +ROCURONIUM INJ 50 MG/5 ML SYRINGE IV PUSH ONE; +SODIUM CHLORID 0.9% 500 ML IV PRN; +WALKER WHEELS/F1 MIS; +ceFAZolin 2 GM/DEX PREMIX 50 ML IV SCH; +ePHEDrine/NS 25 MG/5 ML SYRINGE IV ONE
[2017-09-28 08:29] LABS: AUTOMATED NEUTROPHIL # 5.5 TH/MM3 (1.8-7.7); BASOPHIL # 0.1 TH/MM3 (0-0.2); BASOPHIL % 0.8 % (0.0-2.0); EOSINOPHIL # 0.2 TH/MM3 (0-0.4); EOSINOPHIL % 2.3 % (0.0-4.0); HEMATOCRIT 25.6 % (35.0-46.0); HEMOGLOBIN 8.6 GM/DL (11.6-15.3); LYMPH % 19.2 % (9.0-44.0); LYMPHOCYTE # 1.5 TH/MM3 (1.0-4.8); MEAN CELL VOLUME 96.4 FL (80.0-100.0); MEAN CORPUSCULAR HEMOGLOBIN 32.2 PG (27.0-34.0); MEAN CORPUSCULAR HGB CONC 33.4 % (32.0-36.0); MEAN PLATELET VOLUME 9.4 FL (7.0-11.0); MONO % 9.6 % (0.0-8.0); MONOCYTE # 0.8 TH/MM3 (0-0.9); NEUT % 68.1 % (16.0-70.0); PLATELET COUNT 213 TH/MM3 (150-450); RED BLOOD COUNT 2.66 MIL/MM3 (4.00-5.30); RED CELL DISTRIBUTION WIDTH 13.7 % (11.6-17.2)
[2017-09-28 08:46] LABS: BICARBONATE 18.7 MEQ/L (21.0-32.0); CREATININE 5.65 MG/DL (0.50-1.00)
--- NOTE | 2017-09-28 10:15 | PD.OP ---
cc: Nigel Worthy MD Operative Report Date of Surgery: September 28, 2017 Preoperative Diagnosis: Chronic kidney disease, desire for peritoneal dialysis Postoperative Diagnosis: Same Procedure: Laparoscopic assisted peritoneal dialysis catheter placement Anesthesia: General endotracheal Surgeon: Nigel Worthy Wet End Supervisor(s): Aziza Operation and Findings: Indications for procedure This is a pleasant 72-year-old woman has stage V chronic kidney disease. She desires peritoneal dialysis. Intraoperative findings Successful placement of peritoneal dialysis catheter with good function. Estimated blood loss less than 5 mL. Description of procedure in detail Patient was identified as Batool Olivas, taken to the operating room placed in a supine position. Sequential compression device were placed on bilateral lower extremities. Following induction of adequate general endotracheal anesthesia patient's abdomen was prepped and draped in usual sterile fashion with Betadine. A timeout procedure was performed. Following completion timeout procedure everyone's satisfaction within the room local anesthetic was infiltrated in the left lateral subcostal position. A 2 cm transverse incision was carried out the scalpel and dissection continued posteriorly through subcutaneous fat in the layers of the abdominal wall. Peritoneum was entered with the surgeon's finger. The applied medical 5 mm balloon tip Rangel trocar was placed in the peritoneal cavity its balloon inflated CO2 insufflation to level 50 mmHg ensued. Patient was placed in a Trendelenburg position. A single left lateral 5 mm trocar was placed into the peritoneal cavity under direct laparoscopic view after incision the skin with a scalpel. There are no evidence of intra-abdominal adhesions. Space between the uterus and the rectum was easily accessible. A site below the umbilicus slightly right of midline was selected local anesthetic was infiltrated generously through the layers of the abdominal wall. 1/2 cm transverse incision was carried out the scalpel. 5 mm trocar was placed in the preperitoneal space and then tunneled inferiorly through the preperitoneal space until the peritoneum was entered above the dome of the bladder. Through the sacral portion portion of the peritoneal dialysis catheter was placed into the dependent portion of the pelvis posterior to the uterus adjacent to the intraperitoneal rectum. The trocar was removed from the overlying catheter and the cuff of the catheter was placed into the layers of the abdominal wall. Local anesthetic was then generously infiltrated along the proposed tunnel track to the marked exit site in the right upper quadrant of the abdomen. 2 counterincisions were made with a scalpel and the tunneler was used to tunnel the catheter to the inferior incision site. [place]-neck portion of the catheter was then tunneled from the inferior incision site to the superior incision site and then, using the Meri dilator to the marked exit site. The intervening segments were connected using the titanium connector after cutting the catheters to an appropriate length. 2-0 silk sutures were used to fasten the titanium connector. Titanium caps were then placed on the verge needle dialysis catheter outside the patient's abdomen. Fluid was then run through the catheter without obstruction of the flow. 1 L was run in about 800 cc was run out without difficulty. There is no evidence of kinking or obstruction. Is no evidence of intra-abdominal injury. Plastic tip was placed on the titanium. The 5 mm trocar left lateral side of the abdomen was removed under direct visualization was no evidence of bleeding from trocar sites. The abdomen was desufflated the subcostal port which was then removed. The Sub- costal fascial incision was closed in 2 layers with interrupted [id number] Vicryl sutures. Skin incisions were approximated with 4-0 Monocryl subcuticular sutures. Dressings were applied Mastisol and brown Steri-Strips. A Biopatch was placed around the catheter exit site. 4 x 4's and a large rectangular Tegaderm were placed to make the dressing occlusive. Patient tolerated the procedure well without apparent complication. Sponge needle and instrument counts were correct at the end of the case. Patient was transported to PACU in stable condition. Nigel Worthy MD September 28, 2017 10:15
--- NOTE | 2017-09-28 12:10 | RADRPT ---
EXAM DATE: 09/28/2017 12:07 PM EDT AGE/SEX: 72 years / Female INDICATIONS: cough CLINICAL DATA: This is the patient's initial encounter. Patient reports that signs and symptoms have been present for 1 day and indicates a pain score of 0/10. MEDICAL/SURGICAL HISTORY: None. None. COMPARISON: [facility], XR CHEST PA AND LAT, 07/24/2017. . FINDINGS: There is a new focal mild infiltrate in the left costophrenic angle. Otherwise, the lungs are well ae rated. No focal infiltrates are seen on the right side. The heart size is enlarged but stable. The [place] structures are stable. CONCLUSION: New focal mild infiltrate in the left costophrenic angle compared to the prior study. Electronically signed by: Benoit Bosch MD 09/28/2017 12:08 PM EDT
[2017-09-28 12:25] VITALS: BP 156/70; PULSE 76; RESP 18; TEMP 97.3; O2SAT 97
== END | disposition home or self-care (01) ==
LOC: HSDC 07:01
PROVIDERS: ATTEND Surgery Trauma Surgery
DX: I13.11 Hypertensive heart and chronic kidney disease without heart failure, with stage 5 chronic kidney disease, or end stage renal disease (principal); E11.22 Type 2 diabetes mellitus with diabetic chronic kidney disease; N18.5 Chronic kidney disease, stage 5; Z99.2 Dependence on renal dialysis
CPT/HCPCS: 00840; 49324; 71045; 80048; 85025; 87340; J0131; J1170; J2270; J2405; J2710; J3010

== ENCOUNTER 2017-10-30 09:10 | Inpatient (IN) | payer OTHER, MEDICARE ==
[~2017-10-30] VITALS: Ht 157.5 cm; Wt 77.0 kg
[2017-10-30] VITALS (16 sets, daily range): BP systolic 117–170; BP diastolic 58–74; PULSE 31–68; RESP 16–18; TEMP 97.4–98.2; O2SAT 94–98
[~2017-10-30 09:10] MED LIST changes: -*HYDROmorphone PF 0.5 MG/0.5 ML PERIprocedure ONLY ONE; -*LABETALOL HCL 100 MG/20 ML VIAL PERIprocedural Use ONLY ONE; -*morphine SULFATE 8 MG/ML PERIprocedure ONLY ONE; -ACETAMINOPHEN 1000 MG/100 ML 100 ML IV ONE; -ACETAMINOPHEN/HYDROcodone 325 MG/5 MG TAB PO PRN; -BUPIVACAINE/EPINEPHRINE 0.25% PF 10 ML VIAL INFIL ONE; -CHLORHEXIDINE GLUCONATE 2 % 1 PACK (2 CLOTHS) TOPICAL PRN; -DO NOT ADM ANY ANTICOAGULANT DRUGS PRN; -GLYCOPYRROLATE 1 MG/5 ML SYRINGE IV PUSH ONE; -LACTATED RINGER'S 1000 ML IV PRN; -LIDOCAINE HCL 1% PF 5 ML SYRINGE OTHER ONE; -METOPROLOL TARTRATE 25 MG TAB PO PRN; -NEOSTIGMINE 5 MG/5 ML SYRINGE IV PUSH ONE; -ONDANSETRON HCL 4 MG/2 ML VIAL IV ONE; -ONDANSETRON HCL 4 MG/2 ML VIAL ONE; -ONDANSETRON ODT 4 MG TAB PO PRN; -POVIDONE IODINE 5% (ANTISEPSIS KIT) 4 APPLICATIONS EACH NARE PRN; -PROPOFOL 200 MG/20 ML AMP IV ONE; -ROCURONIUM INJ 50 MG/5 ML SYRINGE IV PUSH ONE; -SODIUM CHLORID 0.9% 500 ML IV PRN; -WALKER WHEELS/F1 MIS; -ceFAZolin 2 GM/DEX PREMIX 50 ML IV SCH; -ePHEDrine/NS 25 MG/5 ML SYRINGE IV ONE
[2017-10-30] MEDS ORDERED: HYDR-3583 PO (09:28)
[2017-10-30] MEDS ORDERED: SODIUM CHLORIDE 0.9% FLUSH 10 ML FLUSH IVF PRN (09:30)
[2017-10-30 09:38] LABS: AUTOMATED NEUTROPHIL # 5.1 TH/MM3 (1.8-7.7); BASOPHIL # 0.1 TH/MM3 (0-0.2); BASOPHIL % 0.7 % (0.0-2.0); EOSINOPHIL # 0.4 TH/MM3 (0-0.4); HEMOGLOBIN 10.4 GM/DL (11.6-15.3); LYMPH % 28.4 % (9.0-44.0); LYMPHOCYTE # 2.5 TH/MM3 (1.0-4.8); MEAN CELL VOLUME 95.8 FL (80.0-100.0); MEAN CORPUSCULAR HEMOGLOBIN 31.2 PG (27.0-34.0); MEAN CORPUSCULAR HGB CONC 32.6 % (32.0-36.0); MEAN PLATELET VOLUME 9.4 FL (7.0-11.0); MONO % 9.7 % (0.0-8.0); MONOCYTE # 0.9 TH/MM3 (0-0.9); NEUT % 57.2 % (16.0-70.0); PLATELET COUNT 322 TH/MM3 (150-450); RED BLOOD COUNT 3.34 MIL/MM3 (4.00-5.30); RED CELL DISTRIBUTION WIDTH 13.8 % (11.6-17.2); WHITE BLOOD COUNT 8.8 TH/MM3 (4.0-11.0)
[2017-10-30 09:45] LABS: INTERNATIONAL NORMALIZED RATIO 1.1 RATIO
[2017-10-30 10:04] LABS: ALT (GPT) 11 U/L (10-53); AST (GOT) 10 U/L (15-37); BICARBONATE 17.4 MEQ/L (21.0-32.0); BLOOD UREA NITROGEN 48 MG/DL (7-18); CALCIUM 9.4 MG/DL (8.5-10.1); CHLORIDE 102 MEQ/L (98-107); CREATININE 6.67 MG/DL (0.50-1.00); GLOMERULAR FILTRATION RATE 6 ML/MIN (>89); GLUCOSE,RANDOM 110 MG/DL (74-106); MAGNESIUM 2.4 MG/DL (1.5-2.5); SODIUM (NA) 134 MEQ/L (136-145)
[2017-10-30] MEDS ORDERED: HYDR-3801 PO (10:07)
[2017-10-30] MEDS ORDERED: DILT120C9 PO (10:07)
[2017-10-30] MEDS ORDERED: FURO80TA PO (10:07)
[2017-10-30] MEDS ORDERED: VALS1TAB65 PO (10:07)
[2017-10-30 10:08] LABS: ALKALINE PHOSPHATASE 80 U/L (45-117); TOTAL BILIRUBIN ADULT 0.2 MG/DL (0.2-1.0); TOTAL PROTEIN 8.2 GM/DL (6.4-8.2); TROPONIN I LESS THAN 0.02 NG/ML (0.02-0.05)
--- NOTE | 2017-10-30 10:13 | RADRPT ---
EXAM DATE: 10/30/2017 9:59 AM EDT AGE/SEX: 72 years / Female INDICATIONS: Chest pain. CLINICAL DATA: This is the patient's initial encounter. Patient reports that signs and symptoms have been present for 3 days and indicates a pain score of 5/10. MEDICAL/SURGICAL HISTORY: None. None. COMPARISON: [facility] [place], CHEST SINGLE AP, 09/28/2017. . FINDINGS: Persistent cardiomegaly and increasing consolidative changes left base. Right lung clear. There is no pneumothorax. There is no failure. CONCLUSION: Persistent cardiomegaly without failure Increasing consolidative changes left base with air bronchograms present. Electronically signed by: Alok Lentz MD 10/30/2017 10:12 AM EDT
[2017-10-30] MEDS ORDERED: TIZA4TAB PO (10:14)
[2017-10-30] MEDS ORDERED: SERT25TA83 PO (10:16)
[2017-10-30] MEDS ORDERED: CALCIUM GLUCONATE 10% 1 GM/10 ML VIAL SLOW IVP ONE (11:15)
[2017-10-30] MEDS ORDERED: DEXTROSE 50% IN WATER 50 ML VIAL(D50) IV PUSH ONE (11:15)
[2017-10-30] MEDS ORDERED: RESP: ALBUTEROL CONC 2.5 MG/0.5 ML NEB INH ONE (11:15)
[2017-10-30] MEDS ORDERED: INSULIN HUMAN REGULAR 1,000 UNITS/10 ML VIAL IV PUSH ONE (11:30)
[2017-10-30] MEDS ORDERED: HEPARIN SODIUM - IV 10,000 UNITS/10 ML VIAL XX PRN (11:30)
[2017-10-30] MEDS ORDERED: SODIUM CHLORIDE 0.9% FLUSH 10 ML FLUSH IV FLUSH PRN ×2 (11:30→12:30)
[2017-10-30] MEDS ORDERED: NALOXONE HCL 0.4 MG/ML AMP IV PUSH PRN (12:30)
[2017-10-30] MEDS ORDERED: ONDANSETRON HCL 4 MG/2 ML VIAL IVP PRN (12:30)
[2017-10-30] MEDS ORDERED: ACETAMINOPHEN 325 MG TAB PO PRN (12:30)
[2017-10-30] MEDS ORDERED: MAGNESIUM HYDROXIDE SUSP 30 ML CUP PO PRN (12:30)
[2017-10-30] MEDS ORDERED: SENNOSIDES 8.6 MG TAB PO PRN (12:30)
[2017-10-30] MEDS ORDERED: LACTULOSE SYRUP 20 GM/30 ML CUP PO PRN (12:30)
[2017-10-30] MEDS ORDERED: BISACODYL 10 MG SUPP RECTAL PRN (12:30)
--- NOTE | 2017-10-30 13:24 | PD ---
HPI Chief Complaint: Cardiac Complaint Time Seen by Provider: 09:21 Travel History International Travel<30 days: No Contact w/Intl Traveler<30days: No Traveled to known affect area: No History of Present Illness HPI Patient presents to the emergency department from dialysis secondary to low blood pressure and heart rate. States that her blood pressure has been high for the past 2 weeks in the systolic range of 200s and her BP meds have been adjusted. He is on 6 different blood pressure medications. Denies chest pain, abdominal pain, syncope, fever, chills, nausea, vomiting, but reports feeling weak and dizzy today. Also complaining of some dyspnea at rest on exertion. Did take her blood pressure medicine this morning. She is on clonidine as needed, hydralazine, metoprolol, valsartan, Lasix, and nifedipine. PFSH Past Medical History Arthritis: Yes (FINGERS/FEET) Asthma: No Autoimmune Disease: No Blood Disorders: No Anxiety: Yes Depression: Yes Heart Rhythm Problems: Yes Cancer: No Cardiovascular Problems: Yes (HTN) High Cholesterol: No Chemotherapy: No Chest Pain: Yes Congestive Heart Failure: No COPD: No Cerebrovascular Accident: No Diabetes: Yes Patient Takes Glucophage: No Dialysis: Yes (PERITONEAL) Diminished Hearing: No Endocrine: No GERD: No Glaucoma: No Genitourinary: No Headaches: No Hepatitis: No Hiatal Hernia: No Hypertension: Yes Immune Disorder: No Kidney Stones: No Musculoskeletal: Yes (ARTHRITIS) Neurologic: No Psychiatric: Yes Reproductive: No Respiratory: No Immunizations Current: Yes Migraines: No Myocardial Infarction: Yes Radiation Therapy: No Renal Failure: No Seizures: No Sickle Cell Disease: No Sleep Apnea: No Thyroid Disease: No Ulcer: Yes (ULCER FROM NSAIDS 2001) Tetanus Vaccination: Never Vaccinated ?: Not Menopausal: Yes : 4 Para: 5 Past Surgical History Abdominal Surgery: Yes (PERITONEAL CATH PLACEMENT RLQ) AICD: No Appendectomy: No Arteriovenous Shunt: No Body Medical Devices: GOUT Cardiac Surgery: No Cholecystectomy: No Ear Surgery: No Endocrine Surgery: No Eye Surgery: No Genitourinary Surgery: No Gynecologic Surgery: No Insulin Pump: No Joint Replacement: No Oral Surgery: No Pacemaker: No Thoracic Surgery: No Other Surgery: Yes Social History Alcohol Use: No Tobacco Use: No Substance Use: No Allergies-Medications (Allergen,Severity, Reaction): Coded Allergies: No Known Allergies (Verified Adverse Reaction, Unknown, 6/25/18) Reported Meds & Prescriptions Reported Meds & Active Scripts Active Metoprolol Tartrate 50 Mg Tab 50 Mg PO BID Catapres (Clonidine) 0.1 Mg Tab 0.1 Mg PO Q6H PRN Nifedipine ER (Nifedipine) 90 Mg Tab 90 Mg PO DAILY Reported Sertraline (Sertraline HCl) 25 Mg Tab 25 Mg PO DAILY Tizanidine (Tizanidine HCl) 4 Mg Tab 8 Mg PO HS Furosemide 80 Mg Tab 80 Mg PO DAILY Diltiazem ER 12 HR (Diltiazem HCl) 120 Mg Caper 120 Mg PO DAILY Valsartan 160 Mg Tab 160 Mg PO DAILY Hydralazine (Hydralazine HCl) 100 Mg Tab 50 Mg PO BID Take with meals Hydrocodone-Acetaminophen 10-325 mg Tab 1 Tab PO Q4H PRN Temazepam 15 Mg Cap 15 Mg PO HS PRN Glipizide 5 Mg Tab 2.5 Mg PO BIDAC Take 30 minutes before a meal Review of Systems Except as stated in HPI: all other systems reviewed are Neg Physical Exam Narrative GENERAL: No acute distress. SKIN: Focused skin assessment warm/dry. HEAD: Atraumatic. Normocephalic. EYES: Pupils equal and round. No scleral icterus. No injection or drainage. ENT: No nasal bleeding or discharge. Mucous membranes pink and moist. NECK: Trachea midline. No JVD. CARDIOVASCULAR: Bradycardic. No murmur appreciated. RESPIRATORY: No accessory muscle use. Mild crackles at the bases bilaterally.. Breath sounds equal bilaterally. GASTROINTESTINAL: Abdomen soft, non-tender, nondistended. Hepatic and splenic margins not palpable. MUSCULOSKELETAL: No obvious deformities. No clubbing. No cyanosis. No edema. NEUROLOGICAL: Awake and alert. No obvious cranial nerve deficits. Motor grossly within normal limits. Normal speech. PSYCHIATRIC: Appropriate mood and affect; insight and judgment normal. Data Data Last Documented VS Vital Signs Date Time Temp Pulse Resp B/P (MAP) Pulse Ox O2 Delivery O2 Flow Rate FiO2 10/30/17 11:28 52 18 160/68 (98) 94 Room Air 10/30/17 09:22 98.0 Orders Orders Electrocardiogram (10/30/17 09:21) B-Type Natriuretic Peptide (10/30/17 09:21) Ckmb (Isoenzyme) Profile (10/30/17 09:21) Complete Blood Count With Diff (10/30/17 09:21) Comprehensive Metabolic Panel (10/30/17 09:21) Magnesium (Mg) (10/30/17 09:21) Prothrombin Time / Inr (Pt) (10/30/17 09:21) Act Partial Throm Time (Ptt) (10/30/17 09:21) Troponin I (10/30/17 09:21) Chest, Single Ap (10/30/17 09:21) Sodium Chloride 0.9% Flush (Ns Flush) (10/30/17 09:30) Calcium Gluconate Inj (Calcium Gluconate (10/30/17 11:15) Dextrose 50% In Margarita (Vial) Inj (D50w (Vi (10/30/17 11:15) Albuterol Concentrated Neb (Albuterol Co (10/30/17 11:15) Insulin Human Regular Inj (Novolin R Inj (10/30/17 11:30) ^ Dialysis Permit (10/30/17 11:26) Notify Dr: Other (10/30/17 11:26) ^ Dialysis Catheter Care (10/30/17 11:26) ^ Dialysis Dressing CHAI.Q2D (10/30/17 11:26) ^ Dialysis Orders (10/30/17 11:26) Heparin Inj (Heparin Inj) (10/30/17 11:30) Sodium Chloride 0.9% Flush (Ns Flush) (10/30/17 11:30) Admit Order (Ed Use Only) (10/30/17 11:51) Labs Laboratory Tests Test 10/30/17 09:25 White Blood Count 8.8 TH/MM3 Red Blood Count 3.34 MIL/MM3 Hemoglobin 10.4 GM/DL Hematocrit 32.0 % Mean Corpuscular Volume 95.8 FL Mean Corpuscular Hemoglobin 31.2 PG Mean Corpuscular Hemoglobin Concent 32.6 % Red Cell Distribution Width 13.8 % Platelet Count 322 TH/MM3 Mean Platelet Volume 9.4 FL Neutrophils (%) (Auto) 57.2 % Lymphocytes (%) (Auto) 28.4 % Monocytes (%) (Auto) 9.7 % Eosinophils (%) (Auto) 4.0 % Basophils (%) (Auto) 0.7 % Neutrophils # (Auto) 5.1 TH/MM3 Lymphocytes # (Auto) 2.5 TH/MM3 Monocytes # (Auto) 0.9 TH/MM3 Eosinophils # (Auto) 0.4 TH/MM3 Basophils # (Auto) 0.1 TH/MM3 CBC Comment DIFF FINAL Differential Comment Prothrombin Time 11.0 SEC Prothromb Time International Ratio 1.1 RATIO Activated Partial Thromboplast Time 38.1 SEC Blood Urea Nitrogen 48 MG/DL Creatinine 6.67 MG/DL Random Glucose 110 MG/DL Total Protein 8.2 GM/DL Albumin 3.0 GM/DL Calcium Level 9.4 MG/DL Magnesium Level 2.4 MG/DL Alkaline Phosphatase 80 U/L Aspartate Amino Transf (AST/SGOT) 10 U/L Alanine Aminotransferase (ALT/SGPT) 11 U/L Total Bilirubin 0.2 MG/DL Sodium Level 134 MEQ/L Potassium Level 5.7 MEQ/L Chloride Level 102 MEQ/L Carbon Dioxide Level 17.4 MEQ/L Anion Gap 15 MEQ/L Estimat Glomerular Filtration Rate 6 ML/MIN Total Creatine Kinase 39 U/L Troponin I LESS THAN 0.02 NG/ML B-Type Natriuretic Peptide 201 PG/ML MDM Medical Decision Making Medical Screen Exam Complete: Yes Emergency Medical Condition: Yes Interpretation(s) ECG: Rate 37, A. fib with slow ventricular response, ventricular conduction delay Labs: Decreased hemoglobin and hematocrit, elevated BUN, creatinine, potassium, BNP Last Impressions Chest X-Ray 10/30/17 0921 Signed Impressions: CONCLUSION: Persistent cardiomegaly without failure Increasing consolidative changes left base with air bronchograms present. Differential Diagnosis CHF, ACS, orthostasis, dehydration, electrolyte imbalance, acute on chronic renal failure Narrative Course Patient presents to the emergency department with bradycardia. Patient placed on a cardiac exercise physiologist, IV access obtained, and EKG/labs/chest x-ray ordered. Patient found to be hyperkalemic. Given 1 g of calcium, D50 and 10 units regular insulin, albuterol 10 mg. After which patient rate increased to the 60s. Physician Communication Physician Communication Dr. Gillette: Treat hyperkalemia, will write dialysis orders Diagnosis Primary Impression: Hyperkalemia Additional Impression: Bradycardia Admitting Information Admitting Physician Requests: Admit Condition: Stable Carmela Wahl MD Oct 30, 2017 13:24
--- NOTE | 2017-10-30 13:47 | PD.CONS ---
HPI Service Nephrology Consult Requested By Dr. aMcias Reason for Consult ESRD on peritoneal dialysis Primary Care Physician Unknown History of Present Illness Patient is a 72-year-old white female with history of diabetes, hypertension, chronic kidney disease approach end-stage renal disease on peritoneal dialysis training she stated she was about to finish her training this week and start on Monday on her own, today she went to the clinic and found to have hypotension along with severe bradycardia, patient denies any dizziness passing out or syncope, she was sent over here to the emergency for evaluation, she was found to be severely bradycardic heart rate in 30s-40s with low blood pressure, potassium was 5.7, treated with calcium, D50, insulin and the heart rate improved to 60. Patient states that she wants to go home now but she has been admitted due to presyncopal episode. Review of Systems Constitutional: COMPLAINS OF: Fatigue Musculoskeletal: COMPLAINS OF: Joint pain, Muscle aches Psychiatric: COMPLAINS OF: Anxiety Past Family Social History Allergies: Coded Allergies: No Known Allergies (Verified Adverse Reaction, Unknown, 10/30/17) Past Medical History Diabetes Hypertension ESRD on peritoneal dialysis Anemia Secondary hyperparathyroidism GI bleeding history of peptic ulcer disease Past Surgical History Tenckhoff catheter placement Reported Medications Reported Meds & Active Scripts Active Metoprolol Tartrate 50 Mg Tab 50 Mg PO BID Catapres (Clonidine) 0.1 Mg Tab 0.1 Mg PO Q6H PRN Nifedipine ER (Nifedipine) 90 Mg Tab 90 Mg PO DAILY Reported Sertraline (Sertraline HCl) 25 Mg Tab 25 Mg PO DAILY Tizanidine (Tizanidine HCl) 4 Mg Tab 8 Mg PO HS Furosemide 80 Mg Tab 80 Mg PO DAILY Diltiazem ER 12 HR (Diltiazem HCl) 120 Mg Caper 120 Mg PO DAILY Valsartan 160 Mg Tab 160 Mg PO DAILY Hydralazine (Hydralazine HCl) 100 Mg Tab 50 Mg PO BID Take with meals Hydrocodone-Acetaminophen 10-325 mg Tab 1 Tab PO Q4H PRN Temazepam 15 Mg Cap 15 Mg PO HS PRN Glipizide 5 Mg Tab 2.5 Mg PO BIDAC Take 30 minutes before a meal Active Ordered Medications Current Medications Medications (Trade) Dose Ordered Sig/Princess Route Start Time Stop Time Status Last Admin (Heparin Inj) 1,000 units WITH DIALYSIS PRN XX 10/30/17 11:30 (NS Flush) 10 ml UNSCH PRN IV FLUSH 10/30/17 11:30 (NS Flush) 2 ml UNSCH PRN IV FLUSH 10/30/17 12:30 (NS Flush) 2 ml BID IV FLUSH 10/30/17 21:00 (Tylenol) 650 mg Q4H PRN PO 10/30/17 12:30 (Zofran Inj) 4 mg Q6H PRN IVP 10/30/17 12:30 (Lovenox Inj) 30 mg Q24H SQ 10/30/17 14:00 (Narcan Inj) 0.4 mg UNSCH PRN IV PUSH 10/30/17 12:30 (Vicenta-Colace) 1 tab BID PO 10/30/17 21:00 (Milk Of Magnesia Liq) 30 ml Q12H PRN PO 10/30/17 12:30 (Senokot) 17.2 mg Q12H PRN PO 10/30/17 12:30 (Dulcolax Supp) 10 mg DAILY PRN RECTAL 10/30/17 12:30 (Lactulose Liq) 30 ml DAILY PRN PO 10/30/17 12:30 Family History Noncontributory Social History She denies smoking or alcohol Physical Exam Vital Signs Vital Signs Date Time Temp Pulse Resp B/P (MAP) Pulse Ox O2 Delivery O2 Flow Rate FiO2 10/30/17 13:03 65 170/74 (106) 10/30/17 11:28 52 18 160/68 (98) 94 Room Air 10/30/17 09:22 98.0 48 16 117/73 (88) 95 Room Air 10/30/17 09:17 98.0 31 16 117/73 (88) 96 Physical Exam GENERAL: Well-nourished, well-developed patient. SKIN: Warm and dry. HEAD: Normocephalic. EYES: No scleral icterus. No injection or drainage. NECK: Supple, trachea midline. No JVD or lymphadenopathy. CARDIOVASCULAR: Regular rate and rhythm without murmurs, gallops, or rubs. RESPIRATORY: Breath sounds equal bilaterally. No accessory muscle use. GASTROINTESTINAL: Abdomen soft, non-tender, nondistended. Tenckhoff catheter present on the right side EXTREMITIES: No cyanosis, or edema. NEUROLOGICAL: Awake, alert, and oriented x 3. Non-focal. Laboratory Laboratory Tests Test 10/30/17 09:25 White Blood Count 8.8 Red Blood Count 3.34 Hemoglobin 10.4 Hematocrit 32.0 Mean Corpuscular Volume 95.8 Mean Corpuscular Hemoglobin 31.2 Mean Corpuscular Hemoglobin Concent 32.6 Red Cell Distribution Width 13.8 Platelet Count 322 Mean Platelet Volume 9.4 Neutrophils (%) (Auto) 57.2 Lymphocytes (%) (Auto) 28.4 Monocytes (%) (Auto) 9.7 Eosinophils (%) (Auto) 4.0 Basophils (%) (Auto) 0.7 Neutrophils # (Auto) 5.1 Lymphocytes # (Auto) 2.5 Monocytes # (Auto) 0.9 Eosinophils # (Auto) 0.4 Basophils # (Auto) 0.1 CBC Comment DIFF FINAL Differential Comment Prothrombin Time 11.0 Prothromb Time International Ratio 1.1 Activated Partial Thromboplast Time 38.1 Blood Urea Nitrogen 48 Creatinine 6.67 Random Glucose 110 Total Protein 8.2 Albumin 3.0 Calcium Level 9.4 Magnesium Level 2.4 Alkaline Phosphatase 80 Aspartate Amino Transf (AST/SGOT) 10 Alanine Aminotransferase (ALT/SGPT) 11 Total Bilirubin 0.2 Sodium Level 134 Potassium Level 5.7 Chloride Level 102 Carbon Dioxide Level 17.4 Anion Gap 15 Estimat Glomerular Filtration Rate 6 Total Creatine Kinase 39 Troponin I LESS THAN 0.02 B-Type Natriuretic Peptide 201 Result Diagram: 10/30/1792410/30/17924 Imaging Last Impressions Chest X-Ray 10/30/17 09 Signed Impressions: CONCLUSION: Persistent cardiomegaly without failure Increasing consolidative changes left base with air bronchograms present. Assessment and Plan Problem List: (1) ESRD (end stage renal disease) on dialysis ICD Codes: N18.6 - End stage renal disease; Z99.2 - Dependence on renal dialysis Plan: Patient has symptomatic hyperkalemia this was treated in the emergency with calcium gluconate and D50 with insulin she has responded heart rate improved to patient received midday exchange States she wants to go home, she was told that we can do small volume peritoneal dialysis at night She is adamant that she wants to go home I told her to discuss with admitting physician (2) Hyperkalemia ICD Codes: E87.5 - Hyperkalemia Status: Acute Plan: Treated with improvement in heart rate (3) Bradycardia ICD Codes: R00.1 - Bradycardia, unspecified Status: Acute Plan: Likely due to hyperkalemia and medications (4) Weakness ICD Codes: R53.1 - Weakness Plan: Low pulse rate and low blood pressure now improved (5) Diabetes ICD Codes: E11.9 - Type 2 diabetes mellitus without complications Plan: Continue to monitor Problem Qualifiers (1) Diabetes: Sheila Gillette MD Oct 30, 2017 13:47
[2017-10-30] MEDS ORDERED: ENOXAPARIN SODIUM 30 MG/0.3 ML SYRINGE SQ SCH (14:00)
--- NOTE | 2017-10-30 14:15 | HHI.HP ---
[facility] Unknown Admission Diagnosis renal failure, hyperkalemia, bradycardia Diagnoses: (1) Hyperkalemia (2) Bradycardia (3) Diabetes (4) Weakness (5) ESRD (end stage renal disease) on dialysis Chief Complaint: Low blood pressure Travel History International Travel<30 Days: No Contact w/Intl Traveler <30 Da: No Traveled to Known Affected Are: No History of Present Illness The patient is a 72-year-old female with end-stage renal disease who was at [facility] for a dialysis class when she was noted to have low blood pressure and bradycardia. She reports that her blood pressure medications have recently been adjusted because she had been having elevated blood pressure. She denies chest pain, dyspnea, nausea, vomiting. She does feel weak and has also reported dizziness this morning. Review of Systems Constitutional: COMPLAINS OF: Dizziness, DENIES: Fever, Chills, Night Sweats Eyes: DENIES: Blurred vision, Vision loss Ears, nose, mouth, throat: DENIES: Hearing loss Respiratory: DENIES: Cough, Wheezing, Sputum production, Shortness of breath Cardiovascular: DENIES: Chest pain, Palpitations, Dyspnea on Exertion, Lower Extremity Edema Gastrointestinal: DENIES: Abdominal pain, Constipation, Diarrhea, Nausea, Vomiting Genitourinary: DENIES: Urinary frequency, Urinary incontinence, Urgency, Hematuria, Dysuria, Nocturia Musculoskeletal: DENIES: Joint pain, Muscle aches Integumentary: DENIES: Pruritus, Rash Hematologic/lymphatic: DENIES: Bruising Neurologic: DENIES: Headache Past Family Social History Past Medical History Hypertension Anxiety/depression Diabetes mellitus End-stage renal disease on peritoneal dialysis Hypertension Osteoarthritis Coronary artery disease History of gastric ulcer Past Surgical History Peritoneal dialysis catheter placement Reported Medications Metoprolol Tartrate 50 Mg Tab 50 Mg PO BID Catapres (Clonidine) 0.1 Mg Tab 0.1 Mg PO Q6H PRN Nifedipine ER (Nifedipine) 90 Mg Tab 90 Mg PO DAILY Sertraline (Sertraline HCl) 25 Mg Tab 25 Mg PO DAILY Tizanidine (Tizanidine HCl) 4 Mg Tab 8 Mg PO HS Furosemide 80 Mg Tab 80 Mg PO DAILY Diltiazem ER 12 HR (Diltiazem HCl) 120 Mg Caper 120 Mg PO DAILY Valsartan 160 Mg Tab 160 Mg PO DAILY Hydralazine (Hydralazine HCl) 100 Mg Tab 50 Mg PO BID Take with meals Hydrocodone-Acetaminophen 10-325 mg Tab 1 Tab PO Q4H PRN Temazepam 15 Mg Cap 15 Mg PO HS PRN Glipizide 5 Mg Tab 2.5 Mg PO BIDAC Take 30 minutes before a meal Allergies: Coded Allergies: No Known Allergies (Verified Adverse Reaction, Unknown, 10/30/17) Family History Cancer Social History Quit drinking alcohol a few months ago. Denies tobacco use or illicit drug use. Physical Exam Vital Signs Vital Signs Date Time Temp Pulse Resp B/P (MAP) Pulse Ox O2 Delivery O2 Flow Rate FiO2 10/30/17 13:03 65 170/74 (106) 10/30/17 11:28 52 18 160/68 (98) 94 Room Air 10/30/17 09:22 98.0 48 16 117/73 (88) 95 Room Air 10/30/17 09:17 98.0 31 16 117/73 (88) 96 Physical Exam GENERAL: Elderly female in no acute distress. HEENT: Normocephalic, atraumatic. Pupils equal, round and reactive. Extraocular movements intact. No scleral icterus. No injection or drainage. Oropharynx is clear. Mucous membranes are moist. CARDIOVASCULAR: Regular rate and rhythm without murmurs, gallops, or rubs. RESPIRATORY: Clear to auscultation. No wheezes, rales, or rhonchi. Breathing is non-labored. GASTROINTESTINAL: Abdomen soft, non-tender, nondistended. EXTREMITIES: No lower extremity edema. No calf tenderness. PSYCH: Alert and oriented x 3. Laboratory Laboratory Tests Test 10/30/17 09:25 White Blood Count 8.8 Red Blood Count 3.34 Hemoglobin 10.4 Hematocrit 32.0 Mean Corpuscular Volume 95.8 Mean Corpuscular Hemoglobin 31.2 Mean Corpuscular Hemoglobin Concent 32.6 Red Cell Distribution Width 13.8 Platelet Count 322 Mean Platelet Volume 9.4 Neutrophils (%) (Auto) 57.2 Lymphocytes (%) (Auto) 28.4 Monocytes (%) (Auto) 9.7 Eosinophils (%) (Auto) 4.0 Basophils (%) (Auto) 0.7 Neutrophils # (Auto) 5.1 Lymphocytes # (Auto) 2.5 Monocytes # (Auto) 0.9 Eosinophils # (Auto) 0.4 Basophils # (Auto) 0.1 CBC Comment DIFF FINAL Differential Comment Prothrombin Time 11.0 Prothromb Time International Ratio 1.1 Activated Partial Thromboplast Time 38.1 Blood Urea Nitrogen 48 Creatinine 6.67 Random Glucose 110 Total Protein 8.2 Albumin 3.0 Calcium Level 9.4 Magnesium Level 2.4 Alkaline Phosphatase 80 Aspartate Amino Transf (AST/SGOT) 10 Alanine Aminotransferase (ALT/SGPT) 11 Total Bilirubin 0.2 Sodium Level 134 Potassium Level 5.7 Chloride Level 102 Carbon Dioxide Level 17.4 Anion Gap 15 Estimat Glomerular Filtration Rate 6 Total Creatine Kinase 39 Troponin I LESS THAN 0.02 B-Type Natriuretic Peptide 201 Result Diagram: 10/30/1792410/30/17924 Imaging Last Impressions Chest X-Ray 10/30/17920 Signed Impressions: CONCLUSION: Persistent cardiomegaly without failure Increasing consolidative changes left base with air bronchograms present. Caprini VTE Risk Assessment Caprini VTE Risk Assessment: Mod/High Risk (score >= 2) Caprini Risk Assessment Model Point Value = 1 Point Value = 2 Point Value = 3 Point Value = 5 Age 41-60 Minor surgery BMI > 25 kg/m2 Swollen legs Varicose veins or History of unexplained or recurrent spontaneous Oral contraceptives or hormone replacement Sepsis (< 1 month) Serious lung disease, including pneumonia (< 1 month) Abnormal pulmonary function Acute myocardial infarction Congestive heart failure (< 1 month) History of inflammatory bowel disease Medical patient at bed rest Age 61-74 Arthroscopic surgery Major open surgery (> 45 min) Laparoscopic surgery (> 45 min) Malignancy Confined to bed (> 72 hours) Immobilizing plaster cast Central venous access Age >= 75 History of VTE Family history of VTE Factor V Leiden Prothrombin [id number] Lupus anticoagulant Anticardiolipin antibodies Elevated serum homocysteine Heparin-induced thrombocytopenia Other congenital or acquired thrombophilia Stroke (< 1 month) Elective arthroplasty Hip, pelvis, or leg fracture Acute spinal cord injury (< 1 month) Prophylaxis Regimen Total Risk Factor Score Risk Level Prophylaxis Regimen 0-1 Low Early ambulation 2 Moderate Order ONE of the following: *Sequential Compression Device (SCD) *Heparin 5000 units SQ BID 3-4 Higher Order ONE of the following medications: *Heparin 5000 units SQ TID *Enoxaparin/Lovenox 40 mg SQ daily (WT < 150 kg, CrCl > 30 mL/min) *Enoxaparin/Lovenox 30 mg SQ daily (WT < 150 kg, CrCl > 10-29 mL/min) *Enoxaparin/Lovenox 30 mg SQ BID (WT < 150 kg, CrCl > 30 mL/min) AND/OR *Sequential Compression Device (SCD) 5 or more Highest Order ONE of the following medications: *Heparin 5000 units SQ TID (Preferred with Epidurals) *Enoxaparin/Lovenox 40 mg SQ daily (WT < 150 kg, CrCl > 30 mL/min) *Enoxaparin/Lovenox 30 mg SQ daily (WT < 150 kg, CrCl > 10-29 mL/min) *Enoxaparin/Lovenox 30 mg SQ BID (WT < 150 kg, CrCl > 30 mL/min) AND *Sequential Compression Device (SCD) Assessment and Plan Assessment and Plan 1. Bradycardia, hypotension: Possibly secondary to dehydration, electrolyte abnormalities. Continue IV fluids. Heart rate has improved to the 60s. Monitor on telemetry. Consult cardiology. 2. End-stage renal disease: Nephrology consult for peritoneal dialysis. 3. Hyperkalemia: Patient received calcium, D50, and insulin. Recheck labs this afternoon. 4. Hypertension: Blood pressure medications on hold secondary to hypotension. 5. Anxiety/depression: Continue sertraline. 6. Insomnia: Patient is quite concerned about getting any sleep while here in the hospital. Continue temazepam. 7. Diabetes mellitus: Continue glipizide. 8. DVT prophylaxis: SCDs, INDIRA fields, heparin. Eric Macias MD Oct 30, 2017 14:15
--- NOTE | 2017-10-30 15:09 | MB ---
cc: Rene De Leon MD DATE: 10/30/2017 REASON FOR CONSULTATION: Bradycardia. HISTORY OF PRESENT ILLNESS: The patient is a 72-year-old white female with a history of hypertension, diabetes, end-stage renal disease, osteoarthritis, who was sent in from the dialysis center due to bradycardia and hypotension. Apparently, her blood pressure was found to be low during dialysis today, so she was recommended an emergency room evaluation. In the emergency department, she had periodic heart rates in 40s, as low as 31, in sinus bradycardia. The patient states her medications have actually been adjusted recently for high blood pressure. She denies dizziness, syncope, near syncope, paroxysmal nocturnal dyspnea. Rarely she experiences fleeting palpitations. Chronically she has intermittent mild pedal edema. PAST MEDICAL HISTORY: 1. Hypertension. 2. Osteoarthritis. 3. Remote history of peptic ulcer disease. 4. End-stage renal disease, now on peritoneal dialysis. 5. Diabetes. PAST SURGICAL HISTORY: Laparoscopic peritoneal dialysis catheter placement. CARDIAC MEDICATIONS AT HOME: 1. Metoprolol 50 mg b.i.d. 2. Catapres 0.1 mg every 6 hours p.r.n. 3. Nifedipine 90 mg daily. 4. Furosemide 80 mg daily. 5. Diltiazem 120 mg daily. 6. Valsartan 160 mg daily. 7. Hydralazine 50 mg b.i.d. ALLERGIES: NO KNOWN DRUG ALLERGIES. FAMILY HISTORY: Noncontributory. SOCIAL HISTORY: The patient denies any history of alcohol or tobacco abuse. REVIEW OF SYSTEMS: As in the History Of Present Illness, otherwise negative or noncontributory. She also denies headache, visual changes, abdominal pain, melena, dyspepsia, bright red blood per rectum. PHYSICAL EXAMINATION: VITAL SIGNS: Her blood pressure is 170/74 with a pulse of 60, respirations 18. GENERAL: She is a well-developed, well-nourished white female, in no acute distress. NECK: Jugular venous pressure is normal. Carotid pulses are 2+ bilaterally and without bruits. CHEST: Reveals clear lungs chavez. CARDIAC: She has a bradycardic, regular rhythm with a grade 2/6 systolic ejection murmur heard at the base of the heart. The S2 heart sound is normal. No gallop is audible. ABDOMEN: She has a soft, nontender abdomen. Bowel sounds are present. There is no definite hepatosplenomegaly. EXTREMITIES: Reveals no clubbing, cyanosis or edema. EKG: Shows sinus bradycardia, occasional junctional escape, occasional premature atrial complex, right bundle branch block. IMPRESSION: Asymptomatic bradycardia (sinus bradycardia) in a 72-year-old white female with a history of hypertension, diabetes, end-stage renal disease. I suspect the bradycardia is due to her medications, which include metoprolol, diltiazem, possibly from Catapres as well. She is completely asymptomatic. There has been no evidence for hypotension since coming into the hospital. In fact, she is hypertensive now. There is no evidence for acute coronary syndrome. RECOMMENDATIONS: 1. Keep the patient off AV cruz suppressing drugs. 2. Resume her usual other home medications for hypertension; consider increasing the Valsartan and hydralazine doses. 3. Will follow up as needed. MD LEXUS Valentine/OSIRIS , 02:30 PM , 03:08 PM [email or web address]
[2017-10-30] MEDS ORDERED: TEMAZEPAM 15 MG CAP PO PRN (17:30)
[2017-10-30] MEDS ORDERED: GLUCAGON 1 MG/ML VIAL OTHER PRN (17:45)
[2017-10-30] MEDS ORDERED: DEXTROSE 50% IN WATER 50 ML VIAL(D50) IV PUSH PRN (17:45)
[2017-10-30] MEDS: ACETAMINOPHEN/HYDROcodone 325 MG/10 MG TAB PO PRN ×2 (18:30→23:04)
[2017-10-30] MEDS: DOCUSATE SODIUM 50 MG/SENNA 8.6 MG TAB PO SCH (19:40)
[2017-10-30] MEDS: SODIUM CHLORIDE 0.9% FLUSH 10 ML FLUSH IV FLUSH SCH (19:40)
[2017-10-30] MEDS: HEPARIN SODIUM - SQ 10,000 UNITS/ML VIAL SQ SCH (19:40)
[2017-10-30] MEDS: INSULIN ASPART SUPPLEMENTAL SCALE SQ SCH (21:00)
[2017-10-30] MEDS ORDERED: hydrALAZINE HCL 50 MG TAB PO SCH (21:00)
[2017-10-30 21:08] LABS: BICARBONATE 19.5 MEQ/L (21.0-32.0); CALCIUM 9.5 MG/DL (8.5-10.1); CREATININE 6.85 MG/DL (0.50-1.00)
--- NOTE | 2017-10-30 22:42 | EKG ---
Date Performed: 10/30/2017 Time Performed: 09:26:20 PTAGE: 72 years EKG: PROBABLE SINUS BRADYCARDIA WITH JUNCTIONAL ESCAPE AND PACS RIGHT BUNDLE BRANCH BLOCK ABNORM AL ECG PREVIOUS TRACING : 04/12/2017 14.53 Compared to previous tracing, rate has decreased, ST/T wav e changes from LVH are no longer noted DOCTOR: Merlin Khan Interpretating Date/Time 10/30/2017 22:40:46
[2017-10-31] VITALS (14 sets, daily range): BP systolic 137–167; BP diastolic 65–76; PULSE 44–99; RESP 16–20; TEMP 98–98.5; O2SAT 96–99
[2017-10-31 05:41] LABS: AUTOMATED NEUTROPHIL # 4.8 TH/MM3 (1.8-7.7); BASOPHIL # 0.1 TH/MM3 (0-0.2); BASOPHIL % 0.8 % (0.0-2.0); EOSINOPHIL # 0.3 TH/MM3 (0-0.4); EOSINOPHIL % 3.4 % (0.0-4.0); HEMATOCRIT 29.3 % (35.0-46.0); HEMOGLOBIN 9.6 GM/DL (11.6-15.3); LYMPH % 26.2 % (9.0-44.0); LYMPHOCYTE # 2.1 TH/MM3 (1.0-4.8); MEAN CELL VOLUME 94.8 FL (80.0-100.0); MEAN CORPUSCULAR HEMOGLOBIN 31.1 PG (27.0-34.0); MEAN CORPUSCULAR HGB CONC 32.8 % (32.0-36.0); MEAN PLATELET VOLUME 9.4 FL (7.0-11.0); MONO % 8.8 % (0.0-8.0); MONOCYTE # 0.7 TH/MM3 (0-0.9); NEUT % 60.8 % (16.0-70.0); PLATELET COUNT 275 TH/MM3 (150-450); RED BLOOD COUNT 3.08 MIL/MM3 (4.00-5.30); RED CELL DISTRIBUTION WIDTH 13.9 % (11.6-17.2); WHITE BLOOD COUNT 7.8 TH/MM3 (4.0-11.0)
[2017-10-31 05:55] LABS: BICARBONATE 19.6 MEQ/L (21.0-32.0); CALCIUM 9.2 MG/DL (8.5-10.1); CREATININE 6.56 MG/DL (0.50-1.00)
[2017-10-31] MEDS: INSULIN ASPART SUPPLEMENTAL SCALE SQ SCH ×2 (07:32→11:22)
[2017-10-31] MEDS: ACETAMINOPHEN/HYDROcodone 325 MG/10 MG TAB PO PRN (08:25)
[2017-10-31] MEDS: HEPARIN SODIUM - SQ 10,000 UNITS/ML VIAL SQ SCH (08:25)
[2017-10-31] MEDS: DOCUSATE SODIUM 50 MG/SENNA 8.6 MG TAB PO SCH (08:25)
[2017-10-31] MEDS: SODIUM CHLORIDE 0.9% FLUSH 10 ML FLUSH IV FLUSH SCH (08:26)
--- NOTE | 2017-10-31 08:48 | HHI.PR ---
Subjective Remarks Pt insisting on going home today. Denies any CP/SOB/N/V Pt states that her BP's usually run in the 200's and that is normal for her. She tells me that if we keep her in the hospital because of her BP's she will sign out AMA. Objective Vitals Vital Signs Date Time Temp Pulse Resp B/P (MAP) Pulse Ox O2 Delivery O2 Flow Rate FiO2 10/31/17 08:00 98 10/31/17 07:30 98.5 99 20 159/76 (103) 99 10/31/17 07:30 84 10/31/17 06:41 21 10/31/17 06:02 64 10/31/17 05:00 56 10/31/17 04:00 56 10/31/17 03:54 98.0 56 16 137/65 (89) 97 10/31/17 03:54 47 10/31/17 02:00 49 10/31/17 01:00 44 10/31/17 00:00 46 10/30/17 23:30 98.0 46 16 130/58 (82) 95 10/30/17 23:00 43 10/30/17 22:00 40 10/30/17 21:00 40 10/30/17 20:00 54 10/30/17 19:47 98.2 59 18 154/69 (97) 95 10/30/17 19:00 62 10/30/17 18:00 66 10/30/17 17:00 68 10/30/17 16:00 56 10/30/17 15:00 97.4 58 16 150/68 (95) 96 10/30/17 15:00 59 10/30/17 14:42 10/30/17 14:30 55 16 147/67 (93) 98 10/30/17 13:03 65 170/74 (106) 10/30/17 11:28 52 18 160/68 (98) 94 Room Air 10/30/17 09:22 98.0 48 16 117/73 (88) 95 Room Air 10/30/17 09:17 98.0 31 16 117/73 (88) 96 I/O 10/30/17 10/30/17 10/30/17 10/31/17 10/31/17 10/31/17 07:00 15:00 23:00 07:00 15:00 23:00 Intake Total 240 ml 200 ml Output Total 200 ml 187 ml Balance 240 ml 0 ml -187 ml Intake Oral 240 ml 200 ml Output Urine Total 200 ml Hemodialysis 187 ml # Voids 1 Result Diagram: 10/31/174 10/31/174 Imaging Last Impressions Chest X-Ray 10/30/17 0921 Signed Impressions: CONCLUSION: Persistent cardiomegaly without failure Increasing consolidative changes left base with air bronchograms present. Objective Remarks GENERAL: Elderly female sitting up in her recliner. CARDIOVASCULAR: Regular rate and rhythm without murmurs RESPIRATORY: Clear to auscultation. No wheezes. Breathing is non-labored. GASTROINTESTINAL: Abdomen soft, non-tender, nondistended. EXTREMITIES: No lower extremity edema. No calf tenderness. A/P Problem List: (1) Hyperkalemia ICD Code: E87.5 - Hyperkalemia Status: Acute (2) Bradycardia ICD Code: R00.1 - Bradycardia, unspecified Status: Acute (3) Diabetes ICD Code: E11.9 - Type 2 diabetes mellitus without complications (4) Weakness ICD Code: R53.1 - Weakness (5) ESRD (end stage renal disease) on dialysis ICD Code: N18.6 - End stage renal disease; Z99.2 - Dependence on renal dialysis Assessment and Plan 1. Bradycardia, hypotension: Possibly secondary to dehydration, electrolyte abnormalities and could be due to her BB and cardizem. s/p IV fluids. Heart rate has improved to the 80's90s. Monitor on telemetry. Cardiology evaluated the patient and recommended holding BB and cardizem. 2. End-stage renal disease: Nephrology following for peritoneal dialysis. 3. Hyperkalemia: Patient received calcium, D50, and insulin. resolved 4. Hypertension: BP meds have been adjusted. BB and cardizem on hold. valsartan dose increased to 240mg daily and hydralazine 50mg po TID. hold clonidine for now. 5. Anxiety/depression: Continue sertraline. 6. Insomnia: Patient is quite concerned about getting any sleep while here in the hospital. Continue temazepam. 7. Diabetes mellitus: Continue glipizide. 8. DVT prophylaxis: SCDs, INDIRA hose, heparin. Discharge Planning anticipate d/c later today if BP's controlled and HR improved. Bety Corea MD Oct 31, 2017 08:47
[2017-10-31] MEDS ORDERED: NIFEdipine 90 MG SUSTAINED RELEASE TAB PO SCH (09:00)
[2017-10-31] MEDS ORDERED: VALSARTAN 160 MG TAB PO SCH (09:00)
[2017-10-31] MEDS ORDERED: SERTRALINE HCL 50 MG TAB PO SCH (09:00)
[2017-10-31] MEDS ORDERED: FUROSEMIDE 80 MG TAB PO SCH (09:00)
[2017-10-31] MEDS ORDERED: DILTIAZEM 120 MG PO SCH (09:00)
[2017-10-31] MEDS ORDERED: VALSARTAN 80 MG TAB PO SCH (09:00)
[2017-10-31] MEDS: hydrALAZINE HCL 50 MG TAB PO SCH ×2 (09:09→11:50)
--- NOTE | 2017-10-31 10:50 | PD.CARD.PN ---
Subjective Subjective Remarks No dyspnea, CP, dizziness. Objective Medications Item Value Date Time Furosemide 80 mg 10/31/17 09 (Lasix) DAILY/PO 10/31/17824 Valsartan 160 mg 10/31/17899 (Diovan) DAILY/PO 10/31/17 08 Hydralazine HCl 50 mg 10/31/17 09 (Apresoline) TID/PO 10/31/17 09 Valsartan 80 mg 10/31/17899 (Diovan) DAILY/PO 10/31/17 0908 Nifedipine 90 mg 10/31/17 09 (Procardia Xl) DAILY/PO 10/31/17 09 Heparin Sodium 5,000 units 10/30/17 2100 (Porcine) Q12HR/SQ (Heparin Inj) Current Medications Medications (Trade) Dose Ordered Sig/Princess Route Start Time Stop Time Status Last Admin (Heparin Inj) 1,000 units WITH DIALYSIS PRN XX 10/30/17 11:30 (NS Flush) 10 ml UNSCH PRN IV FLUSH 10/30/17 11:30 (NS Flush) 2 ml UNSCH PRN IV FLUSH 10/30/17 12:30 (NS Flush) 2 ml BID IV FLUSH 10/30/17 21:00 10/31/17 08:26 (Tylenol) 650 mg Q4H PRN PO 10/30/17 12:30 (Zofran Inj) 4 mg Q6H PRN IVP 10/30/17 12:30 (Narcan Inj) 0.4 mg UNSCH PRN IV PUSH 10/30/17 12:30 (Vicenta-Colace) 1 tab BID PO 10/30/17 21:00 10/31/17 08:25 (Milk Of Magnesia Liq) 30 ml Q12H PRN PO 10/30/17 12:30 (Senokot) 17.2 mg Q12H PRN PO 10/30/17 12:30 (Dulcolax Supp) 10 mg DAILY PRN RECTAL 10/30/17 12:30 (Lactulose Liq) 30 ml DAILY PRN PO 10/30/17 12:30 (Heparin Inj) 5,000 units Q12HR SQ 10/30/17 21:00 10/30/17 19:40 (Lasix) 80 mg DAILY PO 10/31/17 09:00 6/26/18 08:25 (Mojave 10-325 Mg) 1 tab Q4H PRN PO 10/30/17 17:30 10/31/17 08:25 (Restoril) 15 mg HS PRN PO 10/30/17 17:30 10/30/17 19:39 (Zanaflex) 8 mg HS PO 10/30/17 21:00 10/30/17 19:47 (Diovan) 160 mg DAILY PO 10/31/17 09:00 10/31/17 08:25 (Zoloft) 25 mg DAILY PO 10/31/17 09:00 10/31/17 08:25 (D50w (Vial) Inj) 50 ml UNSCH PRN IV PUSH 10/30/17 17:45 (Glucagon Inj) 1 mg UNSCH PRN OTHER 10/30/17 17:45 (NovoLOG SUPPLEMENTAL SCALE) 1 ACHS SLIDING SCALE SQ 10/30/17 21:00 (Apresoline) 50 mg TID PO 10/31/17 09:00 10/31/17 09:09 (Diovan) 80 mg DAILY PO 10/31/17 09:00 10/31/17 09:08 (Procardia Xl) 90 mg DAILY PO 10/31/17 09:00 10/31/17 09:09 Vital Signs / I&O Vital Signs Date Time Temp Pulse Resp B/P (MAP) Pulse Ox O2 Delivery O2 Flow Rate FiO2 10/31/17 10:00 74 10/31/17 09:22 96 21 10/31/17 09:00 83 10/31/17 08:00 98 10/31/17 07:30 98.5 99 20 159/76 (103) 99 10/31/17 07:30 84 10/31/17 06:41 21 10/31/17 06:02 64 10/31/17 05:00 56 10/31/17 04:00 56 10/31/17 03:54 98.0 56 16 137/65 (89) 97 10/31/17 03:54 47 10/31/17 02:00 49 10/31/17 01:00 44 10/31/17 00:00 46 10/30/17 23:30 98.0 46 16 130/58 (82) 95 10/30/17 23:00 43 10/30/17 22:00 40 10/30/17 21:00 40 10/30/17 20:00 54 10/30/17 19:47 98.2 59 18 154/69 (97) 95 10/30/17 19:00 62 10/30/17 18:00 66 10/30/17 17:00 68 10/30/17 16:00 56 10/30/17 15:00 97.4 58 16 150/68 (95) 96 10/30/17 15:00 59 10/30/17 14:42 10/30/17 14:30 55 16 147/67 (93) 98 10/30/17 13:03 65 170/74 (106) 10/30/17 11:28 52 18 160/68 (98) 94 Room Air I/O 10/30/17 10/30/17 10/30/17 10/31/17 10/31/17 10/31/17 07:00 15:00 23:00 07:00 15:00 23:00 Intake Total 240 ml 200 ml Output Total 200 ml 187 ml Balance 240 ml 0 ml -187 ml Intake Oral 240 ml 200 ml Output Urine Total 200 ml Hemodialysis 187 ml # Voids 1 Physical Exam GENERAL: Well developed, well nourished. No acute distress. HEENT: Jugular venous pressure is normal. CHEST: Lungs clear to auscultation bilaterally. Unlabored respiratory effort. CARDIAC: Regular rate and rhythm without S3, S4. II/ RADHA base. Normal S2. ABDOMEN: Soft, nontender, no hepatosplenomegaly. Bowel sounds present. EXTREMITIES: No clubbing, cyanosis, or edema. Laboratory Laboratory Tests Test 10/30/17 20:28 10/31/17 04:24 Blood Urea Nitrogen 50 MG/DL 48 MG/DL Creatinine 6.85 MG/DL 6.56 MG/DL Random Glucose 140 MG/DL 105 MG/DL Calcium Level 9.5 MG/DL 9.2 MG/DL Sodium Level 136 MEQ/L 139 MEQ/L Potassium Level 4.1 MEQ/L 3.9 MEQ/L Chloride Level 102 MEQ/L 105 MEQ/L Carbon Dioxide Level 19.5 MEQ/L 19.6 MEQ/L Anion Gap 15 MEQ/L 14 MEQ/L Estimat Glomerular Filtration Rate 6 ML/MIN 6 ML/MIN White Blood Count 7.8 TH/MM3 Red Blood Count 3.08 MIL/MM3 Hemoglobin 9.6 GM/DL Hematocrit 29.3 % Mean Corpuscular Volume 94.8 FL Mean Corpuscular Hemoglobin 31.1 PG Mean Corpuscular Hemoglobin Concent 32.8 % Red Cell Distribution Width 13.9 % Platelet Count 275 TH/MM3 Mean Platelet Volume 9.4 FL Neutrophils (%) (Auto) 60.8 % Lymphocytes (%) (Auto) 26.2 % Monocytes (%) (Auto) 8.8 % Eosinophils (%) (Auto) 3.4 % Basophils (%) (Auto) 0.8 % Neutrophils # (Auto) 4.8 TH/MM3 Lymphocytes # (Auto) 2.1 TH/MM3 Monocytes # (Auto) 0.7 TH/MM3 Eosinophils # (Auto) 0.3 TH/MM3 Basophils # (Auto) 0.1 TH/MM3 CBC Comment DIFF FINAL Differential Comment Assessment and Plan Problem List: (1) Bradycardia ICD Codes: R00.1 - Bradycardia, unspecified Status: Acute Plan: Resolved bradycardia off AV cruz suppressing drugs. OK to discharge home today from my standpoint. (2) Hypertension ICD Codes: I10 - Essential (primary) hypertension Status: Chronic Plan: Mostly normotensive overnight. Recommend outpatient adjustment of her medications by her PCP and/or vehicle technician. Code Status full code Discussed Condition With patient Problem Qualifiers (1) Hypertension: Qualified Codes: I10 - Essential (primary) hypertension Rene De Leon MD Oct 31, 2017 10:50
[2017-10-31] MEDS ORDERED: HYDR-3801 PO (11:21)
[2017-10-31] MEDS ORDERED: DIOV80TA4 PO (11:21)
== END 2017-10-31 14:30 | disposition home health service (06) | DRG 640 ==
LOC: NEPE 09:10 → NEDA 11:52 → HCPC 14:10
PROVIDERS: ADMIT Hospitalist; ATTEND Hospitalist
DX: E87.5 Hyperkalemia (principal); N18.6 End stage renal disease; E86.0 Dehydration; I95.9 Hypotension, unspecified; E11.22 Type 2 diabetes mellitus with diabetic chronic kidney disease; I13.11 Hypertensive heart and chronic kidney disease without heart failure, with stage 5 chronic kidney disease, or end stage renal disease; N25.81 Secondary hyperparathyroidism of renal origin; R00.1 Bradycardia, unspecified; I25.2 Old myocardial infarction; I25.10 Atherosclerotic heart disease of native coronary artery without angina pectoris; G47.00 Insomnia, unspecified; D63.1 Anemia in chronic kidney disease; M15.9 Polyosteoarthritis, unspecified; F32.9 Major depressive disorder, single episode, unspecified; F41.9 Anxiety disorder, unspecified; Z79.84 Long term (current) use of oral hypoglycemic drugs; Z99.2 Dependence on renal dialysis
CPT/HCPCS: 71045; 80048; 80053; 82550; 82948; 83735; 83880; 84484; 85025; 85610; 85730; 90935; 93005; 94664; J0610; J1644; J1815; J7611

== ENCOUNTER 2018-04-14 09:37 | Inpatient (IN) ==
[2018-04-14] MEDS ORDERED: Succinylcholine Inj 100 MG/5 ML Syringe IV.PUSH ONE (09:46)
[2018-04-14] MEDS ORDERED: Etomidate Inj 20 MG/10 ML Ampul IV.PUSH ONE (09:46)
[2018-04-14] MEDS ORDERED: Propofol 1000 mg/100 ml Inj 1,000 MG/100 ML BOTTLE ONE (10:09)
--- NOTE | 2018-04-14 10:25 | ED ---
HPI General Chief complaint: Arrhythmia / Palpitations Stated complaint: Cardiac Time Seen by Provider: 04/14/18 09:44 Source: EMS Mode of arrival: EMS Limitations: altered mental status History of Present Illness HPI narrative: Per EMS the original call was for decreased responsiveness at her home, roommates do not know much about her medical history, just that she was last seen normal last night. Apparently EMS provided 0.4 of Narcan appeared to have some improvement in her decreased responsiveness, however she is still maintaining her low level of alertness Due to the patient's altered mental status were unable to obtain any history from the patient. From previous visits the patient has apparent history of stroke diabetes hypertension GERD and end-stage renal disease on dialysis. Onset (ago): day(s) (1) Severity: severe Related Data Home Medications Medication Instructions Recorded Confirmed clonidine HCl 0.1 mg PO DAILY PRN 01/22/18 01/22/18 furosemide 80 mg PO DAILY 01/22/18 01/22/18 hydralazine 50 mg PO QID 01/22/18 01/22/18 hydrocodone-acetaminophen [[place]] 1 tab PO Q4-6H PRN 01/22/18 01/22/18 nifedipine 90 mg PO DAILY 01/22/18 01/22/18 pantoprazole [Protonix] 40 mg PO DAILY 01/22/18 01/22/18 Allergies Allergy/AdvReac Type Severity Reaction Status Date / Time No Known Allergies Allergy Verified 01/22/18 10:23 Review of Systems ROS: all other systems reviewed are negative [facility] Medical History Medical History Diabetes (Acute) Dialysis catheter clot or failure (Acute) End stage renal disease (Acute) GERD (gastroesophageal reflux disease) (Acute) Hypertension (Acute) Peritoneal dialysis catheter in place (Acute) Stroke (Acute) TIA (transient ischemic attack) (Acute) Social History Social History Substance History: Unable to Obtain Second Hand Smoke Exposure: No Smoking Status: Unknown if ever smoked How Often Do You Have a Drink Containing Alcohol: Unable to Obtain Recent Travel in [facility] within the Last 8 Weeks: No Recent Out of Country Travel within the Last 8 Weeks: No Immunization History Tetanus Immunization: Unsure Exam Narrative Exam Narrative: GENERAL: Obese altered female diaphoretic . SKIN: Diaphoretic skin . HEAD: Atraumatic. Normocephalic. EYES: Pupils equal and round. No scleral icterus. No injection or drainage. ENT: No nasal bleeding or discharge. Mucous membranes pink and moist. NECK: Trachea midline. No JVD. CARDIOVASCULAR: Tachycardic regular rhythm. no rubs or gallops.. There is a right subclavian permacath RESPIRATORY: accessory muscle use. Bilateral rhonchi . Decreased tidal volume , not guarding airway GASTROINTESTINAL: Abdomen soft, non-tender, nondistended. No rebound or guarding MUSCULOSKELETAL: Extremities without clubbing, cyanosis, or edema. No obvious deformities. Left antecubital bruit/thrill present NEUROLOGICAL: Obtunded, not alert nor oriented, GCS 8, Procedures Central Line Placement Left SC: Time Out Performed: Yes Patient Placed on Monitor/Pulse Ox: Yes MD Prep: mask, gown and gloves Central Line Prep: Chlorhexidine scrub and sterile drapes applied Local anesthesia used: lidocaine 1% Amount of anesthesia used (mL): 6 Ultrasound Used for Placement: No Central Line Lumen Inserted: triple Post Procedure: sutured in place, good blood return, all ports aspirated, flushed, capped and sterile dressing applied Post Procedure X-Ray: tip of catheter in good position and no pneumothorax seen Patient Tolerated Procedure: well Complications: none Intubation Time Out Performed: Yes Sedative: etomidate Mg Given: 20 Paralytic: succinylcholine Mg Given: 100 Laryngoscope: Vince ET Tube Size: 7.5 ET Tube Uncuffed: No Tube Secured Depth (cm): 22 Tube Secured Location: lips Tube Placement Confirmation: visualized tube passing through cords, equal breath sounds bilaterally, no breath sounds over epigastrium and confirmation by capnometry Patient Tolerated Procedure: well Intubation Complications: none Course Initial Documented Vital Signs Pulse Rate 105 H 04/14/18 09:43 Respiratory Rate 22 04/14/18 09:43 Blood Pressure 183/113 H 04/14/18 09:43 Pulse Oximetry 99 04/14/18 09:43 Last Documented Vital Signs Temperature 100.5 F H 04/14/18 10:37 Pulse Rate 85 04/14/18 11:55 Respiratory Rate 18 04/14/18 11:55 Blood Pressure 129/53 L 04/14/18 11:55 Pulse Oximetry 96 04/14/18 11:55 Critical Care Time Critical Care Time: Yes Total Critical Care Time: 60 Attestation: Aggregate critical care time was 60 minutes. Time to perform other separately billable procedures was not included in the critical care time. My time did not include minutes spent treating any other patients simultaneously or on activities that did not directly contribute to the patient's treatment. The services I provided to this patient were to treat and/or prevent clinically significant deterioration I provided critical care services requiring my management, as noted below: Chart data review, documentation time, medication orders and management, vital sign assessments/reviewing monitor data, ordering and reviewing lab tests, ordering and interpreting/reviewing x-rays and diagnostic studies, care of the patient and discussion of the patient with the admitting physicians. 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 Coagulation profile PT and PTT are slightly elevated with a PT of 12.7 PTT of 36.9 however the INR is only 1.3 ABG shows pH of 7.19 PCO2 of 48 PaO2 of 94 bicarb is 17 this is consistent with a metabolic acidosis, this is on ventilator with vent settings of AC 14 450 PEEP 5..60% FiO2 Electrolytes show hyperkalemia 6.0 bicarb of 16.7, anion gap of 24, BUN and creatinine elevated at 69 and 9.96 glucose random 170... Normal lipase Chest x-ray read by radiologist as cardiomegaly without evidence of acute airspace disease or significant pulmonary edema. No evidence of any pneumothorax. Lactic acid 6 AST 1992 ALT 758, CPK 475, troponin 5.21 Line Inspector and oil burner were both contacted for admission and consultation. The patient received some bicarb and albuterol to help transiently with hyperkalemia Cath culture indicated on the urinalysis due to few bacteria noted with 10 urine WBCs patient has also received renal doses of zosyn and flagyl as well as isidro Fermin nursing information systems coordinator on case will see patient connie, rectal asa given Medical Screen Exam Complete: Yes Emergency Medical Condition: Yes Medical Records Medical records reviewed: Yes I reviewed the patient's medical records. Lab Data Result diagrams: 04/14/18 10:20 12/08/18 10:20 Lab Results 04/14/18 04/14/18 04/14/18 Range/Units 10:20 10:20 10:20 WBC 12.5 H (4.0-11.0) th/mm3 RBC 3.80 L (4.00-5.30) mil/mm3 Hgb 12.6 (11.6-15.3) gm/dL Hct 39.8 (35.0-46.0) % MCV 104.7 H (80.0-100.0) fL MCH 33.2 (27.0-34.0) pg MCHC 31.7 L (32.0-36.0) % RDW 20.3 H (11.6-17.2) % Plt Count 275 (150-450) th/mm3 MPV 8.9 (7.0-11.0) fL Prelim Diff (Auto) Slide review pending Neut % (Auto) 90.5 H (16.0-70.0) % Lymph % (Auto) 4.6 L (9.0-44.0) % Gosper % (Auto) 4.8 (0.0-8.0) % Eos % (Auto) 0.0 (0.0-4.0) % Baso % (Auto) 0.1 (0.0-2.0) % Neut # (Auto) 11.3 H (1.8-7.7) th/mm3 Lymph # (Auto) 0.6 L (1.0-4.8) th/mm3 Gosper # (Auto) 0.6 (0.0-0.9) th/mm3 Eos # (Auto) 0.0 (0.0-0.4) th/mm3 Baso # (Auto) 0.0 (0.0-0.2) th/mm3 WBC Differential Manual diff final Seg Neuts % (Manual) 64 (16-70) % Band Neuts % (Manual) 29 H (0-6) % Lymphocytes % (Manual) 6 L (9-44) % Monocytes % (Manual) 1 (0-8) % Abs Neuts (Manual) 11.6 H (1.8-7.7) th/mm3 Differential Comment . Toxic Vacuolation Present H (None) Platelet Estimate Normal (Normal) Platelet Morphology Normal (Normal) Ovalocytes 1+ H (None) PT 12.7 H (9.8-11.6) sec INR 1.3 Ratio APTT 36.9 H (23.4-31.7) sec Puncture Site Patient Temperature O2 Saturation (90-100) % ABG pH (7.380-7.420) ABG pCO2 (38-42) mmHg ABG pO2 (61-120) mmHg ABG HCO3 (22-26) mmol/L ABG O2 Content (12.0-20.0) Vol % ABG Base Excess (-2-2) mmol/L ABG Methemoglobin (0-2) % Eric Test Hemoglobin (12.0-16.0) G/DL Carboxyhemoglobin (0-4) % O2 Delivery Device Vent Setting Inspired O2 % Critical Value Sodium 141 (136-145) meq/L Potassium 6.0 H (3.5-5.1) meq/L Chloride 100 (98-107) meq/L Carbon Dioxide 16.7 L (21.0-32.0) meq/L Anion Gap 24 H (5-15) meq/L BUN 69 H (7-18) mg/dL Creatinine 9.96 H (0.50-1.00) mg/dL Estimated GFR 4 L (>89) mL/min Random Glucose 170 H (74-106) mg/dL Lactic Acid (0.4-2.0) mmol/L Calcium 7.5 L (8.5-10.1) mg/dL Magnesium 2.2 (1.5-2.5) mg/dL Total Bilirubin 0.6 (0.2-1.0) mg/dL AST 1992 H (15-37) U/L ALT 758 H (10-53) U/L Alkaline Phosphatase 69 (45-117) U/L Total Creatine Kinase 475 H (26-192) U/L CK-MB (CK-2) 20.8 H (0.5-3.6) ng/mL CK-MB (CK-2) % 4.4 H* (0.0-4.0) % Troponin I 5.21 H* (0.02-0.05) ng/mL Total Protein 9.0 H (6.4-8.2) g/dL Albumin 3.5 (3.4-5.0) g/dL Lipase 176 (73-393) U/L Urine Color (Yellw/Straw) Urine Clarity (Clear) Urine pH (5.0-8.5) Ur Specific Arcade (1.002-1.035) Urine Protein (Neg-Trace) mg/dL Urine Glucose (UA) (Negative) mg/dL Urine Ketones (Negative) mg/dL Urine Occult Blood (Negative) Urine Nitrate (Negative) Urine Bilirubin (Negative) Urine Urobilinogen (Less than 2) mg/dL Ur Leukocyte Esterase (Negative) Urine RBC (0-3) /hpf Urine WBC (0-5) /hpf Ur Squamous Epith Cells (0-5) /hpf Amorphous Sediment (None) /hpf Urine Bacteria (None) /hpf Hyaline Casts (0-3) /lpf Urine Mucus (Occasional) /lpf Micro UA Comment Ur Microscopic Review Urine Culture Comments 04/14/18 04/14/18 04/14/18 Range/Units 10:20 10:32 10:35 WBC (4.0-11.0) th/mm3 RBC (4.00-5.30) mil/mm3 Hgb (11.6-15.3) gm/dL Hct (35.0-46.0) % MCV (80.0-100.0) fL MCH (27.0-34.0) pg MCHC (32.0-36.0) % RDW (11.6-17.2) % Plt Count (150-450) th/mm3 MPV (7.0-11.0) fL Prelim Diff (Auto) Neut % (Auto) (16.0-70.0) % Lymph % (Auto) (9.0-44.0) % Gosper % (Auto) (0.0-8.0) % Eos % (Auto) (0.0-4.0) % Baso % (Auto) (0.0-2.0) % Neut # (Auto) (1.8-7.7) th/mm3 Lymph # (Auto) (1.0-4.8) th/mm3 Gosper # (Auto) (0.0-0.9) th/mm3 Eos # (Auto) (0.0-0.4) th/mm3 Baso # (Auto) (0.0-0.2) th/mm3 WBC Differential Seg Neuts % (Manual) (16-70) % Band Neuts % (Manual) (0-6) % Lymphocytes % (Manual) (9-44) % Monocytes % (Manual) (0-8) % Abs Neuts (Manual) (1.8-7.7) th/mm3 Differential Comment Toxic Vacuolation (None) Platelet Estimate (Normal) Platelet Morphology (Normal) Ovalocytes (None) PT (9.8-11.6) sec INR Ratio APTT (23.4-31.7) sec Puncture Site Right brachial Patient Temperature 98.6 O2 Saturation 93 (90-100) % ABG pH 7.19 L* (7.380-7.420) ABG pCO2 48 H (38-42) mmHg ABG pO2 94 (61-120) mmHg ABG HCO3 17 L (22-26) mmol/L ABG O2 Content 16.7 (12.0-20.0) Vol % ABG Base Excess -9.4 L (-2-2) mmol/L ABG Methemoglobin 0.9 (0-2) % Eric Test Present Hemoglobin 12.7 (12.0-16.0) G/DL Carboxyhemoglobin 1.2 (0-4) % O2 Delivery Device Ventilator Vent Setting [id number] Inspired O2 60 % Critical Value Yes Sodium (136-145) meq/L Potassium (3.5-5.1) meq/L Chloride (98-107) meq/L Carbon Dioxide (21.0-32.0) meq/L Anion Gap (5-15) meq/L BUN (7-18) mg/dL Creatinine (0.50-1.00) mg/dL Estimated GFR (>89) mL/min Random Glucose (74-106) mg/dL Lactic Acid 6.0 H* (0.4-2.0) mmol/L Calcium (8.5-10.1) mg/dL Magnesium (1.5-2.5) mg/dL Total Bilirubin (0.2-1.0) mg/dL AST (15-37) U/L ALT (10-53) U/L Alkaline Phosphatase (45-117) U/L Total Creatine Kinase (26-192) U/L CK-MB (CK-2) (0.5-3.6) ng/mL CK-MB (CK-2) % (0.0-4.0) % Troponin I (0.02-0.05) ng/mL Total Protein (6.4-8.2) g/dL Albumin (3.4-5.0) g/dL Lipase (73-393) U/L Urine Color Lynsey (Yellw/Straw) Urine Clarity Cloudy H (Clear) Urine pH 5.0 (5.0-8.5) Ur Specific Arcade 1.017 (1.002-1.035) Urine Protein 500 or greater (Neg-Trace) mg/dL Urine Glucose (UA) Negative (Negative) mg/dL Urine Ketones Negative (Negative) mg/dL Urine Occult Blood Small H (Negative) Urine Nitrate Negative (Negative) Urine Bilirubin Negative (Negative) Urine Urobilinogen Less than 2 (Less than 2) mg/dL Ur Leukocyte Esterase Negative (Negative) Urine RBC 1 (0-3) /hpf Urine WBC 10 H (0-5) /hpf Ur Squamous Epith Cells 3 (0-5) /hpf Amorphous Sediment Moderate H (None) /hpf Urine Bacteria Few H (None) /hpf Hyaline Casts 5 (0-3) /lpf Urine Mucus Few H (Occasional) /lpf Micro UA Comment Cath-culture ind Ur Microscopic Review Not Reportable Urine Culture Comments Cath-cult indicated Imaging Data Radiologist's impression: Chest X-Ray 04/14/18 09:44 CONCLUSION: Satisfactory position of supporting devices Interval placement of bilateral central venous catheters without evidence of pneumothorax. Cardiomegaly with out evidence of acute airspace disease or significant pulmonary edema. Head CT 04/14/18 09:44 CONCLUSION: 1. 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 2. No evidence of acute infarct, hemorrhage, mass or edema. 3. No significant change compared to 04/12/2017. . Abdomen/Pelvis CT 04/14/18 10:59 CONCLUSION: 1. Distended gallbladder with cholelithiasis and minimal gas in the fundus. There is no significant pericholecystic fluid or inflammation. 2. Simple left renal cyst. 3. Bibasilar airspace disease. ECG Data EKG Prior to Arrival: No Attestation: I personally reviewed and interpreted this ECG as follows: Prior ECG tracings: not available for review Interpretation: EKG shows normal sinus rhythm, left atrial enlargement right bundle branch block pattern and lateral ST depressions without any concomitant contralateral ST elevations Discharge Plan Discharge Disposition Patient Disposition: ED Admit(ED Internal Use Only) Discharge Condition Condition: Critical Discharge Order Discharge Orders: ED Use Only Admit Order (Routine); Ordered 04/14/18 Ordered By: Juan Vargas Discharge Details Diagnosis: Non-ST elevated myocardial infarction (non-STEMI), Sepsis, Liver enzyme elevation, Fever Physicians Team ED Provider: Juan Vargas Primary Care Provider: UNKNOWN, Rxs /Orders / Referrals /Forms Prescriptions: No Action clonidine HCl 0.1 mg Tablet 0.1 mg PO DAILY PRN (Reason: Hypertension) RF: 0 furosemide 80 mg Tablet 80 mg PO DAILY RF: 0 nifedipine 90 mg Tablet Extended Release 24hr 90 mg PO DAILY RF: 0 pantoprazole [Protonix] 40 mg Tablet,Delayed Release (Dr/Ec) 40 mg PO DAILY RF: 0 hydralazine 50 mg Tablet 50 mg PO QID RF: 0 hydrocodone-acetaminophen [[place]] 7.5-325 mg Tablet 1 tab PO Q4-6H PRN (Reason: Pain, Moderate) RF: 0 Status ED Status: Pending Admission
[2018-04-14 10:35] LABS: Baso % (Auto) 0.1 % (0.0-2.0); Hematocrit 39.8 % (35.0-46.0); Hemoglobin 12.6 gm/dL (11.6-15.3); Lymph # (Auto) 0.6 th/mm3 (1.0-4.8); Lymph % (Auto) 4.6 % (9.0-44.0); Mean Corpuscular HGB Conc 31.7 % (32.0-36.0); Mean Corpuscular Hemoglobin 33.2 pg (27.0-34.0); Mean Corpuscular Volume 104.7 fL (80.0-100.0); Mean Platelet Volume 8.9 fL (7.0-11.0); Mono # (Auto) 0.6 th/mm3 (0.0-0.9); Mono % (Auto) 4.8 % (0.0-8.0); Neut # (Auto) 11.3 th/mm3 (1.8-7.7); Neut % (Auto) 90.5 % (16.0-70.0); Platelet Count 275 th/mm3 (150-450); Red Cell Distribution Width 20.3 % (11.6-17.2); White Blood Count 12.5 th/mm3 (4.0-11.0)
[2018-04-14 10:42] LABS: ABG Base Excess -9.4 mmol/L (-2-2); ABG PCO2 48 mmHg (38-42); ABG PO2 94 mmHg (61-120)
[2018-04-14 10:45] LABS: Activated Partial Thrombo Time 36.9 sec (23.4-31.7); INR 1.3 Ratio; Prothrombin Time 12.7 sec (9.8-11.6)
--- NOTE | 2018-04-14 10:49 | XR ---
EXAM DATE: 04/14/2018 10:45 AM EST AGE/SEX: 72 years / Female INDICATIONS: Left sided central line placement, OG tube placement, and intubation. CLINICAL DATA: This is the patient's initial encounter. Patient reports that signs and symptoms have been present for 1 day and indicates a pain score of Nonresponsive. MEDICAL/SURGICAL HISTORY: Non-responsive. Non-responsive. [place] [facility] [place] . FINDINGS: Heart is mildly to moderately enlarged. Lungs are mildly hypoaerated with mildly prominent interstitial vascular markings. There is no eviden ce of consolidating airspace disease. Supportive devices which included an endotracheal tube, nasogastric tube, left subclavian central cari e and right jugular dialysis catheter are in satisfactory position. CONCLUSION: Satisfactory position of supporting devices Interval placement of bilateral central venous catheters without evidence of pneumothorax. Cardiomegaly with out evidence of acute airspace disease or significant pulmonary edema. Electronically signed by: Mike Viera MD 04/14/2018 10:48 AM EST
[2018-04-14] MEDS ORDERED: Piperacil/Tazo 2.25 GM Premix 50 ML IV.SIG ONE (10:51)
[2018-04-14 10:52] LABS: Alanine Aminotransferase 758 U/L (10-53); Albumin 3.5 g/dL (3.4-5.0); Anion Gap 24 meq/L (5-15); Blood Urea Nitrogen 69 mg/dL (7-18); Calcium 7.5 mg/dL (8.5-10.1); Carbon Dioxide 16.7 meq/L (21.0-32.0); Chloride 100 meq/L (98-107); Glomerular Filtration Rate 4 mL/min (>89); Glucose,Random 170 mg/dL (74-106); Lipase 176 U/L (73-393); Magnesium 2.2 mg/dL (1.5-2.5); Sodium 141 meq/L (136-145)
[2018-04-14 10:59] LABS: Alkaline Phosphatase 69 U/L (45-117); Aspartate Aminotransferase 1992 U/L (15-37); Creatine Kinase 475 U/L (26-192)
[2018-04-14] MEDS ORDERED: Sodium Bicarbonate 8.4% Inj 50 MEQ/50 ML Syringe IV.PUSH ONE ×2 (11:01→12:26)
[2018-04-14 11:09] LABS: Troponin I 5.21 ng/mL (0.02-0.05)
[2018-04-14 11:11] LABS: Amorphous Sediment,Urine Moderate /hpf; Bacteria,Urine Few /hpf; Bilirubin,Urine Negative (Negative); Clarity,Urine Cloudy (Clear); Color,Urine Amber (Yellw/Straw); Glucose,Urine (UA) Negative (Negative); Hyaline Casts,Urine 5 /lpf (0-3); Leukocyte Esterase,Urine Negative (Negative); Mucus,Urine Few /lpf (Occasional); Nitrite,Urine Negative (Negative); Specific Gravity,Urine 1.017 (1.002-1.035); Squamous Epithelial Cell,Urine 3 /hpf (0-5)
[2018-04-14 11:18] LABS: Lymphocytes 6 % (9-44); Monocytes 1 % (0-8); Ovalocytes 1+; Platelet Estimate Normal (Normal); Platelet Morphology Normal (Normal); Toxic Vacuolation Present
[2018-04-14 11:21] LABS: Creatine Kinase MB 20.8 ng/mL (0.5-3.6)
[2018-04-14 11:25] LABS: CKMB Percent 4.4 % (0.0-4.0)
[2018-04-14] MEDS ORDERED: Sod Chloride 0.9% Inj 1,000 ML IV.SIG ONE (11:34)
--- NOTE | 2018-04-14 11:38 | CT ---
EXAM DATE: 04/14/2018 11:31 AM EST AGE/SEX: 72 years / Female INDICATIONS: Altered mental status. CLINICAL DATA: This is the patient's initial encounter. Patient reports that signs and symptoms have been present for 1 day and indicates a pain score of Nonresponsive. MEDICAL/SURGICAL HISTORY: Diabetes. Stroke. Transient ischemic attack. None. RADIATION DOSE: 54.61 CTDI (mGy) COMPARISON: [facility] [place]/12/2017. . TECHNIQUE: CT of the head without contrast. Using automated exposure control and adjustment of the mA and/or kV according to patient size, radiation dose was kept as low as reasonably achievable to ob tain optimal diagnostic quality images. DICOM format image data is available electronically for revi ew and comparison. FINDINGS: Cerebrum: The ventricles are normal for age. No evidence of midline shift, mass lesion, hemorrhage or acute infarction. No extraaxial fluid collections are seen. Posterior Fossa: Small focal areas of encephalomalacia are identified in both cerebellar hemispheres. These are stable compared to the previous study. The cerebellum and brainstem are otherwise intact. The 4th ventricle is midline. The cerebellopontine angle is unremarkable. Extracranial: The visualized portion of the orbits is intact. Skull: The calvaria is intact. No evidence of skull fracture. CONCLUSION: 1. 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 2. No evidence of acute infarct, hemorrhage, mass or edema. 3. No significant change compared to 04/12/2017. . Electronically signed by: Mike Viera MD 04/14/2018 11:36 AM EST
[2018-04-14] MEDS: Propofol 1000 mg/100 ml Inj 1,000 MG/100 ML BOTTLE IV.CONT PRN ×2 (11:43→18:21)
--- NOTE | 2018-04-14 11:46 | CT ---
EXAM DATE: 04/14/2018 11:33 AM EST AGE/SEX: 72 years / Female INDICATIONS: Diffuse abdomen pain. CLINICAL DATA: This is the patient's initial encounter. Patient reports that signs and symptoms have been present for 1 day and indicates a pain score of Nonresponsive. MEDICAL/SURGICAL HISTORY: Diabetes. Stroke. Hypertension. None. RADIATION DOSE: 15.30 CTDI (mGy) COMPARISON: No prior exams available for comparison. TECHNIQUE: Multiple contiguous axial images were obtained through the abdomen. Images were obtained using multiple row detector helical technique. Using automated exposure control and adjustment of the mA and/or kV according to patient size, radiation dose was kept as low as reasonably achievable to o btain optimal diagnostic quality images. DICOM format image data is available electronically for rev iew and comparison. FINDINGS: Lower Lungs: Posterior bibasilar airspace disease is noted. Liver: The liver has a homogeneous density without space-occupying lesion. There is no dilation of th e biliary tree. The gallbladder is moderately distended and contains numerous small calcified stones. Small amount of air is identified in the fundus of the gallbladder. Spleen: Homogeneous density without enlargement. Pancreas: Unremarkable without mass or calcification. Kidneys: Normal in size and shape. No evidence of mass or hydronephrosis. 2.2 cm cyst is identified anteriorly in the lower pole of the left kidney. Adrenal Glands: Unremarkable. Aorta: The aorta and proximal iliac vessels are grossly unremarkable without aneurysmal dilation. Bowel/Mesentery: The bowel loops are grossly unremarkable. The cecum and sigmoid colon have a normal configuration. Nasogastric tube is identified in the stomach. Abdominal Wall: Intact. Retroperitoneum: No evidence of adenopathy in the retrocrural, para-aortic, or deep pelvic regions. Bladder: Decompressed with an indwelling [place]. Reproductive Organs: No abnormal masses or calcifications seen. Inguinal: The inguinal region is unremarkable without evidence of adenopathy. Bony Structures: Unremarkable. CONCLUSION: 1. Distended gallbladder with cholelithiasis and minimal gas in the fundus. There is no significant pericholecystic fluid or inflammation. 2. Simple left renal cyst. 3. Bibasilar airspace disease. Electronically signed by: Mike Viera MD 04/14/2018 11:45 AM EST
[2018-04-14] MEDS ORDERED: Vancomycin Inj 1,000 MG in Sodium Chlor 0.9% Inj 250 ML IV.SIG ONE (11:51)
[2018-04-14] MEDS ORDERED: Aspirin 300 MG Supp RECTAL ONE (11:55)
[2018-04-14] MEDS ORDERED: fentaNYL Citrate Inj 100 MCG/2 ML Ampul IV.PUSH PRN (12:19)
[2018-04-14] MEDS ORDERED: Vancomycin Consult Pharmacy OTHER PRN (12:22)
[2018-04-14] MEDS ORDERED: Norepinephrine Inj 16 MG in Sodium Chlor 0.9% Inj 234 ML IV.CONT PRN (12:30)
--- NOTE | 2018-04-14 12:39 | P.HPCC ---
History of Present Illness Service: Critical care Primary Care Physician: UNKNOWN Chief Complaint: AMS, septic shock History of Present Illness: Patient is a 72-year-old female with past medical history significant for previous strokes, TIA, end-stage renal disease on hemodialysis (Monday, Monday schedule), Left AV fistula on 01/2018, type 2 diabetes, and hypertension. EMS was called as her roommate found her unresponsive last seen normal yesterday night. IV 0.4 mg of Narcan was given without any response. Patient was intubated in the emergency department for airway protection, for a GCS 8. Lab work showed leukocytosis of 12,500 with a left shift of 90% neutrophilia, 29% bands. Lactic acid came back at 6. CMP showed potassium of 6.0 bicarb of 16.7, anion gap of 24, liver enzymes were markedly elevated AST 1992 ALT 758, CPK 475, troponin 5.21. EKG did not show any evidence of acute ST elevation. ABG shows pH of 7.19 PCO2 of 48 PaO2 of [address] abdomen pelvis showed distended gallbladder with cholelithiasis, also small amount of air in the fundus of the gallbladder. Critical care medicine was consulted for admission. I evaluated the patient in the emergency department. She is acutely ill critical appearing. Intermittently hypotensive. Dr. Vargas has placed a left subclavian central line. I will start Levophed if needed. Patient received Zosyn and Flagyl in the ED. I will place patient on vancomycin and Zosyn renally dosed. Pierre cultures have been sent. With the CT finding I contacted Dr. Cortes who requested stat ultrasound of the right upper quadrant. Also ID was consulted and I discussed with Dr. Montaño. Patient has healed scars probably few week old laparoscopic abdominal surgery, it is unclear what kind of surgery she had. Dr. Fermin consulted for an STEMI. Nephrology Dr. Gillette consulted for emergent hemodialysis - Diagnosis (1) Acute metabolic encephalopathy (2) Acute hypoxemic respiratory failure (3) Septic shock (4) Lactic acidosis (5) Non-ST elevated myocardial infarction (non-STEMI) (6) UTI (urinary tract infection) (7) Liver enzyme elevation (8) Emphysematous cholecystitis (9) Hyperkalemia (10) ESRD (end stage renal disease) (11) HTN (hypertension) (12) Diabetes (13) GERD (gastroesophageal reflux disease) (14) Stroke (15) TIA (transient ischemic attack) Inpatient Certification: I certify that the inpatient services were ordered in accordance with Medicare regulations governing the order. This includes certification that hospital inpatient services are reasonable and necessary and in the case of services not specified as inpatient-only under 42 CFR 419.22(n), that they are appropriately provided as inpatient services in accordance to with the 2-midnight benchmark under 43 CFR 412.3(e) Estimated Total Length of Stay (Days): 7 Plans for Post Hospital Care: Not yet determined Review of Systems All other systems reviewed negative except as stated in HPI, unobtainable due to endotracheal tube PMFSH - History History Provided By: [place] / EMT - Medical / Surgical Hx Neg / Unobtainable Surgical History: Unable to Obtain - Medical History Medical History: Medical History (Last Reviewed 04/14/18 @ 10:20 by Juan Vargas) Diabetes Dialysis catheter clot or failure End stage renal disease GERD (gastroesophageal reflux disease) Hypertension Peritoneal dialysis catheter in place Stroke TIA (transient ischemic attack) - Social History I have reviewed the patient's Social History: No - Tobacco History Second Hand Smoke Exposure: No Smoking Status: Unknown if ever smoked - Alcohol History How Often Do You Have a Drink Containing Alcohol: Unable to Obtain - Substance Use History Substance History: Unable to Obtain - Travel History Recent Travel in the [place] Within the Last 8 Weeks: No Recent Travel Out of the Country Within the Last 8 Weeks: No - Immunization History Tetanus Immunization: Unsure Medications and Allergies Active Medications: Active Medications Albuterol (Duoneb Neb (Prn)) 1 ampul NEB Q4HR NEB PRN PRN Reason: SHORTNESS OF BREATH Albuterol (Duoneb Neb (Princess)) 1 ampul NEB Q6HR NEB PRINCESS Chlorhexidine Gluconate (Chlorhexidine 2% Cloth) 3 pack TOPICAL DAILY@0400 PRINCESS Stop: 04/20/18 03:59 Chlorhexidine Gluconate (Chlorhexidine 2% Cloth) 3 pack TOPICAL DAILY@0400 PRN PRN Reason: Extra cloth needed Stop: 04/20/18 03:59 Chlorhexidine Gluconate (Peridex 0.12% Oral Kit) 15 ml OROPHARYNG BID@0800, 2000 PRINCESS Famotidine (Pepcid Pf Inj) 20 mg IV.PUSH Q12HR PRINCESS Fentanyl Citrate (Fentanyl Inj) 50 mcg IV.PUSH Q1H PRN PRN Reason: SEE LABEL COMMENTS Propofol (Diprivan 1000 Mg/100 Ml Inj) 1,000 mg in 100 mls @ 2.313 mls/hr IV.CONT TITRATE PRN; Protocol PRN Reason: Per Protocol Last Admin: 04/14/18 11:43 Dose: 5 mcg/kg/min, 2.31 mls/hr Vancomycin HCl 1,000 mg/ (Sodium Chloride) 250 mls @ 250 mls/hr IV.SIG ONCE ONE Stop: 04/14/18 12:50 Piperacillin/Tazobactam/Dextrose (Zosyn 2.25 Gm Premix) 50 mls @ 100 mls/hr IV.SIG Q6H [facility] Miscellaneous Medication () 1 each OROPHARYNG 0000,0400,1200,1600 [facility] Pharmacy Profile Note (Vancomycin Consult Pharmacy) 1 each OTHER UNSCH PRN PRN Reason: Pharmacy to dose Sodium Bicarbonate (Sodium Bicarbonate 8.4% Inj) 100 meq IV.PUSH ONCE ONE Stop: 04/14/18 12:27 Allergies Allergy/AdvReac Type Severity Reaction Status Date / Time No Known Allergies Allergy Verified 01/22/18 10:23 Home Medications Medication Instructions Recorded Confirmed Type clonidine HCl 0.1 mg PO DAILY PRN 01/22/18 01/22/18 History furosemide 80 mg PO DAILY 01/22/18 01/22/18 History hydralazine 50 mg PO QID 01/22/18 01/22/18 History hydrocodone-acetaminophen [[place]] 1 tab PO Q4-6H PRN 01/22/18 01/22/18 History nifedipine 90 mg PO DAILY 01/22/18 01/22/18 History pantoprazole [Protonix] 40 mg PO DAILY 01/22/18 01/22/18 History Results - Labs CBC & Chem 7: 04/14/18 10:20 04/14/18 10:20 Labs: Short CBC 04/14/18 Range/Units 10:20 WBC 12.5 H (4.0-11.0) th/mm3 Hgb 12.6 (11.6-15.3) gm/dL Hct 39.8 (35.0-46.0) % Plt Count 275 (150-450) th/mm3 BMP 04/14/18 10:20 Sodium 141 Potassium 6.0 H Chloride 100 Carbon Dioxide 16.7 L BUN 69 H Creatinine 9.96 H Calcium 7.5 L Cardiac Enzymes 04/14/18 Range/Units 10:20 Total Creatine Kinase 475 H (26-192) U/L CK-MB (CK-2) 20.8 H (0.5-3.6) ng/mL Troponin I 5.21 H* (0.02-0.05) ng/mL Liver Function 04/14/18 Range/Units 10:20 Total Bilirubin 0.6 (0.2-1.0) mg/dL AST 1992 H (15-37) U/L ALT 758 H (10-53) U/L Alkaline Phosphatase 69 (45-117) U/L Albumin 3.5 (3.4-5.0) g/dL Urine 04/14/18 Range/Units 10:35 Urine Color [place] (Yellw/Straw) Urine Clarity Cloudy H (Clear) Urine pH 5.0 (5.0-8.5) Ur Specific [place] 1.017 (1.002-1.035) Urine Protein 500 or greater (Neg-Trace) mg/dL Urine Glucose (UA) Negative (Negative) mg/dL - Imaging Impressions Chest X-Ray 04/14/18 09:44 CONCLUSION: Satisfactory position of supporting devices Interval placement of bilateral central venous catheters without evidence of pneumothorax. Cardiomegaly with out evidence of acute airspace disease or significant pulmonary edema. Head CT 04/14/18 09:44 CONCLUSION: 1. 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 2. No evidence of acute infarct, hemorrhage, mass or edema. 3. No significant change compared to 04/12/2017. . Abdomen/Pelvis CT 04/14/18 10:59 CONCLUSION: 1. Distended gallbladder with cholelithiasis and minimal gas in the fundus. There is no significant pericholecystic fluid or inflammation. 2. Simple left renal cyst. 3. Bibasilar airspace disease. Exam Vital signs: Vital Signs 04/14/18 09:43 04/14/18 10:03 04/14/18 10:10 Temperature Pulse Rate 105 H 94 H 101 H Respiratory Rate 22 18 14 Blood Pressure 183/113 H 156/69 H 164/71 H Pulse Oximetry 99 99 96 04/14/18 10:12 04/14/18 10:37 04/14/18 10:40 Temperature 100.5 F H Pulse Rate 96 H Respiratory Rate 26 H 16 Blood Pressure 135/89 Pulse Oximetry 97 95 95 04/14/18 11:14 04/14/18 11:15 04/14/18 11:25 Temperature Pulse Rate 85 Respiratory Rate 14 14 Blood Pressure 151/70 H Pulse Oximetry 97 99 04/14/18 11:44 04/14/18 11:55 04/14/18 12:21 Temperature 98.7 F Pulse Rate 83 85 87 Respiratory Rate 14 18 14 Blood Pressure 93/55 L 129/53 L 146/66 H Pulse Oximetry 95 96 Intake & Output 04/13/18 04/14/18 04/14/18 18:59 06:59 18:59 Output Total 750 / 750 Balance -750 / -750 Weight 77.111 kg Output: Gastric Drainage 750 / 750 Oral Orogastric Tube 750 / 750 Narrative: GENERAL: Elderly female who is intubated sedated with propofol appears critically ill SKIN: Diaphoretic skin. HEAD: Atraumatic. Normocephalic. EYES: Pupils equal and round. No scleral icterus. ENT: No nasal bleeding or discharge. Mucous membranes pink and moist. Orotracheally intubated NECK: Trachea midline. No JVD. CARDIOVASCULAR: Tachycardic regular rhythm. no rubs or gallops.. There is a right subclavian PermaCath-no evidence of infection RESPIRATORY: Air entry equal bilaterally no wheezes or crackles diminished bilaterally GASTROINTESTINAL: Abdomen soft, non-tender, nondistended. No rebound or guarding. Well-healed anterior trocar scars MUSCULOSKELETAL: Extremities without clubbing, cyanosis, or edema. No obvious deformities. Left upper extremity AV fistula NEUROLOGICAL: Propofol, eyes are open do not follow commands intermittently moves extremities Septic Shock Reassessment Septic shock perfusion: reassessment completed Caprini VTE Risk Assessment Caprini VTE Risk Assessment: Moderate/High Risk (score >= 2) Caprini Risk Assessment Model: Point Value = 1 Point Value = 2 Point Value = 3 Point Value = 5 Age 41-60 Minor surgery BMI > 25 kg/m2 Swollen legs Varicose veins or History of unexplained or recurrent spontaneous Oral contraceptives or hormone replacement Sepsis (< 1 month) Serious lung disease, including pneumonia (< 1 month) Abnormal pulmonary function Acute myocardial infarction Congestive heart failure (< 1 month) History of inflammatory bowel disease Medical patient at bed rest Age 61-74 Arthroscopic surgery Major open surgery (> 45 min) Laparoscopic surgery (> 45 min) Malignancy Confined to bed (> 72 hours) Immobilizing plaster cast Central venous access Age >= 75 History of VTE Family history of VTE Factor V Leiden Prothrombin [id number] Lupus anticoagulant Anticardiolipin antibodies Elevated serum homocysteine Heparin-induced thrombocytopenia Other congenital or acquired thrombophilia Stroke (< 1 month) Elective arthroplasty Hip, pelvis, or leg fracture Acute spinal cord injury (< 1 month) Prophylaxis Regimen: Total Risk Factor Score Risk Level Prophylaxis Regimen 0-1 Low Early ambulation 2 Moderate Order ONE of the following: *Sequential Compression Device (SCD) *Heparin 5000 units SQ BID 3-4 Higher Order ONE of the following medications: *Heparin 5000 units SQ TID *Enoxaparin/Lovenox 40 mg SQ daily (WT < 150 kg, CrCl > 30 mL/min) *Enoxaparin/Lovenox 30 mg SQ daily (WT < 150 kg, CrCl > 10-29 mL/min) *Enoxaparin/Lovenox 30 mg SQ BID (WT < 150 kg, CrCl > 30 mL/min) AND/OR *Sequential Compression Device (SCD) 5 or more Highest Order ONE of the following medications: *Heparin 5000 units SQ TID (Preferred with Epidurals) *Enoxaparin/Lovenox 40 mg SQ daily (WT < 150 kg, CrCl > 30 mL/min) *Enoxaparin/Lovenox 30 mg SQ daily (WT < 150 kg, CrCl > 10-29 mL/min) *Enoxaparin/Lovenox 30 mg SQ BID (WT < 150 kg, CrCl > 30 mL/min) AND *Sequential Compression Device (SCD) Assessment and Plan - Problem List (1) Acute metabolic encephalopathy Code(s): G93.41 - Metabolic encephalopathy Status: Acute (2) Acute hypoxemic respiratory failure Code(s): J96.01 - Acute respiratory failure with hypoxia Status: Acute (3) Septic shock Code(s): A41.9 - Sepsis, unspecified organism; R65.21 - Severe sepsis with septic shock Status: Acute (4) Lactic acidosis Code(s): E87.2 - Acidosis Status: Acute (5) Non-ST elevated myocardial infarction (non-STEMI) Code(s): I21.4 - Non-ST elevation (NSTEMI) myocardial infarction Status: Acute (6) UTI (urinary tract infection) Code(s): N39.0 - Urinary tract infection, site not specified Status: Acute (7) Liver enzyme elevation Code(s): R74.8 - Abnormal levels of other serum enzymes Status: Acute (8) Emphysematous cholecystitis Code(s): K81.0 - Acute cholecystitis Status: Acute (9) Hyperkalemia Code(s): E87.5 - Hyperkalemia Status: Acute (10) ESRD (end stage renal disease) Code(s): N18.6 - End stage renal disease Status: Chronic (11) HTN (hypertension) Code(s): I10 - Essential (primary) hypertension Status: Chronic (12) Diabetes Code(s): E11.9 - Type 2 diabetes mellitus without complications Status: Chronic (13) GERD (gastroesophageal reflux disease) Code(s): K21.9 - Gastro-esophageal reflux disease without esophagitis Status: Chronic (14) Stroke Code(s): I63.9 - Cerebral infarction, unspecified Status: Chronic (15) TIA (transient ischemic attack) Code(s): G45.9 - Transient cerebral ischemic attack, unspecified Status: Chronic - Assessment and Plan Plan: NEURO: Acute metabolic encephalopathy Old small bilateral cerebellar infarcts. -Propofol and as needed fentanyl for sedation and ventilator synchrony -Encephalopathy seems to be metabolic secondary to severe sepsis -Daily sedation vacation once clinically stable -CT of the head shows old bilateral cerebellar strokes, and nothing acute RESP: Acute hypoxemic respiratory failure -Intubated in the emergency department for lack of airway protection and hypoxia -PRVC/AC, Ventilator bundle, DuoNeb every 6 hours scheduled and as needed -Sputum culture -SBT when appropriate CV: NSTEMI likely type II Hypotension Lactic acidosis History of hypertension -Normal saline IV fluids 500 ml bolus, 2d echo, cardiology consult, serial troponin -Start aspirin 81 mg daily, hold off beta-lenora secondary to hypotension -Cardiology Dr. Fermin consulted NSTEMI most likely type II from sepsis -Avoid IV heparin due to markedly elevated liver enzymes, possible need of surgical intervention -Hold all home antihypertensives (hold nifedipine, clonidine, hydralazine and Lasix) GI: Markedly elevated liver enzymes Probable emphysematous cholecystitis History of GERD -N.p.o., IV Protonix -CT abdomen pelvis shows small amount of air in the fundus of the gallbladder, this is concerning for emphysematous cholecystitis given clinical picture -Stat consult to general surgery and discussed with Dr. Cortes -He requested a stat ultrasound of the right upper quadrant -Patient might need surgical intervention/cholecystectomy : End-stage renal disease Hyperkalemia -Monitor renal function closely. -Dr. Gillette consulted for emergent hemodialysis -Treat hyperkalemia with bicarb, breathing treatment, insulin IV and D50 -Repeat CMP at 3 PM, will need dialysis today ID: Septic shock Probable emphysematous cholecystitis Possible UTI -Antibiotics with vancomycin and Zosyn -Infectious disease and general surgery consulted -Follow-up blood urine and sputum cultures -Stat ultrasound of the right upper quadrant ordered HEME: -Monitor CBC, coags -Leukocytosis with bandemia due to severe sepsis ENDO: Hyperkalemia Type 2 diabetes -Hyperkalemia treatment as above -Sliding scale insulin PROPH: -Bilateral lower extremity SCDs. Heparin sq/IV Protonix LINES: -Utilize peripheral IVs, left subclavian central line placed by ED physician in the emergency department CC time 87 min Patient is very critical with metabolic encephalopathy syndrome secondary to severe sepsis now complicated with type II NSTEMI. Gas in the gallbladder concerning for emphysematous cholecystitis. Broad-spectrum antibiotics started. General surgery Dr. Cortes and ID Dr. Montaño consulted Code Status: Full Discussed Condition With: Sabra Torre, Nain Vargas
[2018-04-14] MEDS ORDERED: Dextrose 50% in Water 50 ML Vial IV.PUSH PRN (13:42)
--- NOTE | 2018-04-14 14:09 | P.CONID ---
History of Present Illness Service: Infectious Disease Consult date: 04/14/18 Requesting Physician: Valery Alvarez Reason for Consult: Evaluation and Mment of Severe Sepsis, ? acute emphysem cholecystitis. Primary Care Provider: UNKNOWN Chief Complaint: AMS, septic shock History of Present Illness: is a 72 y/o WF with PMHx of CKD s/p attempt at PD catheter placement due to non compliance, also Left Brachiocephalic AV fistula on 2017 by . Patient was reportedly found with decreased level of consciousness. Room mates do not know much about her medical history and reportedly seen her normal the night prior. Per records EMS gave her Narcan and there was improvement noted. No family nos on chart and old records could not be assessed. Patients past medical records from prior visits could not be accessed by me but patient has CKD and prior Bradycardia on prior admit. Also patient has a history of stroke diabetes hypertension GERD. On admission she had leukocytosis of 12,000 with a left shift. Metabolic acidosis on ABG. Lactic acid 6.Troponins elevated. Cr at 9.6. Normal lipase, LFTs in thousands. CT with air concerning for emphysematous cholecystitis. At the time of my evaluation patient is in IMC, not on pressors, has received fluid bolus amount not documented per RN. She is currently intubated, not sedated, opens eyes, does not follow commands for me. No obvious focal deficit. ID consulted for evaluation and Mment of Severe Sepsis, possible acute cholecystitis. Review of Systems unobtainable due to endotracheal tube, unobtainable due to mental condition PMFSH - History History Provided By: Scrub Technician / EMT - Medical History Medical History: Medical History (Last Reviewed 04/14/18 @ 10:20 by Juan Vargas) Diabetes Dialysis catheter clot or failure End stage renal disease GERD (gastroesophageal reflux disease) Hypertension Peritoneal dialysis catheter in place Stroke TIA (transient ischemic attack) - Tobacco History Second Hand Smoke Exposure: No Smoking Status: Unknown if ever smoked - Alcohol History How Often Do You Have a Drink Containing Alcohol: Unable to Obtain - Substance Use History Substance History: Unable to Obtain - Travel History Recent Travel in the [place] Within the Last 8 Weeks: No Recent Travel Out of the Country Within the Last 8 Weeks: No - Immunization History Tetanus Immunization: Unsure Medications and Allergies Active Medications: Active Medications Albuterol (Duoneb Neb (Prn)) 1 ampul NEB Q4HR NEB PRN PRN Reason: SHORTNESS OF BREATH Albuterol (Duoneb Neb (Princess)) 1 ampul NEB Q6HR NEB ON LICENSE OF [facility] Last Admin: 04/14/18 12:54 Dose: 1 ampul Aspirin (Aspirin Chew) 81 mg PO DAILY ON LICENSE OF [facility] Chlorhexidine Gluconate (Chlorhexidine 2% Cloth) 3 pack TOPICAL DAILY@0400 PRINCESS Stop: 04/20/18 03:59 Chlorhexidine Gluconate (Chlorhexidine 2% Cloth) 3 pack TOPICAL DAILY@0400 PRN PRN Reason: Extra cloth needed Stop: 04/20/18 03:59 Chlorhexidine Gluconate (Peridex 0.12% Oral Kit) 15 ml OROPHARYNG BID@0800, 2000 ON LICENSE OF [facility] Dextrose (D50w Vial) 50 ml IV.PUSH UNSCH PRN PRN Reason: PER HYPOGLYCEMIA PROTOCOL Famotidine (Pepcid Pf Inj) 20 mg IV.PUSH Q12HR ON LICENSE OF [facility] Fentanyl Citrate (Fentanyl Inj) 50 mcg IV.PUSH Q1H PRN PRN Reason: SEE LABEL COMMENTS Glucagon (Glucagon Inj) 1 mg OTHER PRN PRN PRN Reason: for Hypoglycemia Protocol Heparin Sodium (Porcine) (Heparin Inj) 5,000 units SQ Q12HR ON LICENSE OF [facility] Propofol (Diprivan 1000 Mg/100 Ml Inj) 1,000 mg in 100 mls @ 2.313 mls/hr IV.CONT TITRATE PRN; Protocol PRN Reason: Per Protocol Last Admin: 04/14/18 11:43 Dose: 5 mcg/kg/min, 2.31 mls/hr Piperacillin/Tazobactam/Dextrose (Zosyn 2.25 Gm Premix) 50 mls @ 100 mls/hr IV.SIG Q6H ON LICENSE OF [facility] Norepinephrine Bitartrate 16 (mg/ Sodium Chloride) 250 mls @ 1.87 mls/hr IV.CONT TITRATE PRN; Protocol PRN Reason: See Protocol Insulin Aspart (Novolog Insulin Correctional Sugar Inj) 0 unit SQ Q6HR ON LICENSE OF [facility]; Protocol Miscellaneous Medication () 1 each OROPHARYNG 0000,0400,1200,1600 ON LICENSE OF [facility] Pharmacy Profile Note (Vancomycin Consult Pharmacy) 1 each OTHER UNSCH PRN PRN Reason: Pharmacy to dose Terbutaline Sulfate (Brethine Inj) 1 mg SQ UNSCH PRN PRN Reason: For Extravasation Allergies Allergy/AdvReac Type Severity Reaction Status Date / Time No Known Allergies Allergy Verified 01/22/18 10:23 Home Medications Medication Instructions Recorded Confirmed Type clonidine HCl 0.1 mg PO DAILY PRN 01/22/18 01/22/18 History furosemide 80 mg PO DAILY 01/22/18 01/22/18 History hydralazine 50 mg PO QID 01/22/18 01/22/18 History hydrocodone-acetaminophen [[place]] 1 tab PO Q4-6H PRN 01/22/18 01/22/18 History nifedipine 90 mg PO DAILY 01/22/18 01/22/18 History pantoprazole [Protonix] 40 mg PO DAILY 01/22/18 01/22/18 History Exam Vital signs: Vital Signs 04/14/18 09:43 04/14/18 10:03 04/14/18 10:10 Temperature Pulse Rate 105 H 94 H 101 H Respiratory Rate 22 18 14 Blood Pressure 183/113 H 156/69 H 164/71 H Pulse Oximetry 99 99 96 04/14/18 10:12 04/14/18 10:37 04/14/18 10:40 Temperature 100.5 F H Pulse Rate 96 H Respiratory Rate 26 H 16 Blood Pressure 135/89 Pulse Oximetry 97 95 95 04/14/18 11:14 04/14/18 11:15 04/14/18 11:25 Temperature Pulse Rate 85 Respiratory Rate 14 14 Blood Pressure 151/70 H Pulse Oximetry 97 99 04/14/18 11:44 04/14/18 11:55 04/14/18 12:21 Temperature 98.7 F Pulse Rate 83 85 87 Respiratory Rate 14 18 14 Blood Pressure 93/55 L 129/53 L 146/66 H Pulse Oximetry 95 96 04/14/18 12:52 04/14/18 12:54 04/14/18 13:02 Temperature Pulse Rate 77 78 78 Respiratory Rate 16 16 Blood Pressure 90/52 L 111/58 L Pulse Oximetry 93 L 04/14/18 13:40 04/14/18 14:01 Temperature Pulse Rate Respiratory Rate 16 Blood Pressure Pulse Oximetry 100 Intake & Output 04/13/18 04/14/18 04/14/18 18:59 06:59 18:59 Output Total 750 / 750 Balance -750 / -750 Weight 77.111 kg Output: Gastric Drainage 750 / 750 Oral Orogastric Tube 750 / 750 Narrative: GENERAL: Sedated, on the vent, NAD SKIN: Cool and dry, no generalized rash HEAD: Atraumatic. Normocephalic. No temporal or scalp tenderness. EYES: Pupils equal round and reactive. Scleral icterus. No injection or drainage. No petechia ENT: Orally intubated NECK: Trachea midline. Supple, nontender, no meningeal signs. CARDIOVASCULAR: HS audible. RESPIRATORY: Air entry equal bilaterally. Clear to auscultation bilaterally. GASTROINTESTINAL: Abdomen soft, ? RUQ tenderness. Scars on abdomen ? PD cath insertion attempts related. MUSCULOSKELETAL: Extremities without clubbing, cyanosis. NEUROLOGICAL: Sedated Psych could not be assessed IV line sites ok. Left AV fistula site ok HD cath and CL site ok. Results - Labs CBC & Chem 7: 04/14/18 10:20 04/14/18 10:20 Labs: Laboratory Results - last 24 hr 04/14/18 04/14/18 04/14/18 10:20 10:20 10:20 WBC 12.5 H RBC 3.80 L Hgb 12.6 Hct 39.8 MCV 104.7 H MCH 33.2 MCHC 31.7 L RDW 20.3 H Plt Count 275 MPV 8.9 Prelim Diff (Auto) Slide review pending Neut % (Auto) 90.5 H Lymph % (Auto) 4.[address] [place] % (Auto) 4.8 Eos % (Auto) 0.0 Baso % (Auto) 0.1 Neut # (Auto) 11.3 H Lymph # (Auto) 0.[address] [place] # (Auto) 0.6 Eos # (Auto) 0.0 Baso # (Auto) 0.0 WBC Differential Manual diff final Seg Neuts % (Manual) 64 Band Neuts % (Manual) 29 H Lymphocytes % (Manual) 6 L Monocytes % (Manual) 1 Abs Neuts (Manual) 11.6 H Differential Comment . Toxic Vacuolation Present H Platelet Estimate Normal Platelet Morphology Normal Ovalocytes 1+ H PT 12.7 H INR 1.3 APTT 36.9 H Puncture Site Patient Temperature O2 Saturation ABG pH ABG pCO2 ABG pO2 ABG HCO3 ABG O2 Content ABG Base Excess ABG Methemoglobin Eric Test Hemoglobin Carboxyhemoglobin O2 Delivery Device Vent Setting Inspired O2 Critical Value Sodium 141 Potassium 6.0 H Chloride 100 Carbon Dioxide 16.7 L Anion Gap 24 H BUN 69 H Creatinine 9.96 H Estimated GFR 4 L Random Glucose 170 H Lactic Acid Calcium 7.5 L Magnesium 2.2 Total Bilirubin 0.6 AST 1992 H ALT 758 H Alkaline Phosphatase 69 Total Creatine Kinase 475 H CK-MB (CK-2) 20.8 H CK-MB (CK-2) % 4.4 H* Troponin I 5.21 H* Total Protein 9.0 H Albumin 3.5 Lipase 176 Urine Color Urine Clarity Urine pH Ur Specific [place] Urine Protein Urine Glucose (UA) Urine Ketones Urine Occult Blood Urine Nitrate Urine Bilirubin Urine Urobilinogen Ur Leukocyte Esterase Urine RBC Urine WBC Ur Squamous Epith Cells Amorphous Sediment Urine Bacteria Hyaline Casts Urine Mucus Micro UA Comment Ur Microscopic Review Urine Culture Comments 04/14/18 04/14/18 04/14/18 10:20 10:32 10:35 WBC RBC Hgb Hct MCV MCH MCHC RDW Plt Count MPV Prelim Diff (Auto) Neut % (Auto) Lymph % (Auto) [place] % (Auto) Eos % (Auto) Baso % (Auto) Neut # (Auto) Lymph # (Auto) [place] # (Auto) Eos # (Auto) Baso # (Auto) WBC Differential Seg Neuts % (Manual) Band Neuts % (Manual) Lymphocytes % (Manual) Monocytes % (Manual) Abs Neuts (Manual) Differential Comment Toxic Vacuolation Platelet Estimate Platelet Morphology Ovalocytes PT INR APTT Puncture Site Right brachial Patient Temperature 98.6 O2 Saturation 93 ABG pH 7.19 L* ABG pCO2 48 H ABG pO2 94 ABG HCO3 17 L ABG O2 Content 16.7 ABG Base Excess -9.4 L ABG Methemoglobin 0.9 Eric Test Present Hemoglobin 12.7 Carboxyhemoglobin 1.2 O2 Delivery Device Ventilator Vent Setting Ac,14,450,peep5 Inspired O2 60 Critical Value Yes Sodium Potassium Chloride Carbon Dioxide Anion Gap BUN Creatinine Estimated GFR Random Glucose Lactic Acid 6.0 H* Calcium Magnesium Total Bilirubin AST ALT Alkaline Phosphatase Total Creatine Kinase CK-MB (CK-2) CK-MB (CK-2) % Troponin I Total Protein Albumin Lipase Urine Color [place] Urine Clarity Cloudy H Urine pH 5.0 Ur Specific [place] 1.017 Urine Protein 500 or greater Urine Glucose (UA) Negative Urine Ketones Negative Urine Occult Blood Small H Urine Nitrate Negative Urine Bilirubin Negative Urine Urobilinogen Less than 2 Ur Leukocyte Esterase Negative Urine RBC 1 Urine WBC 10 H Ur Squamous Epith Cells 3 Amorphous Sediment Moderate H Urine Bacteria Few H Hyaline Casts 5 Urine Mucus Few H Micro UA Comment Cath-culture ind Ur Microscopic Review Not Reportable Urine Culture Comments Cath-cult indicated - Imaging Impressions Chest X-Ray 04/14/18 09:44 CONCLUSION: Satisfactory position of supporting devices Interval placement of bilateral central venous catheters without evidence of pneumothorax. Cardiomegaly with out evidence of acute airspace disease or significant pulmonary edema. Head CT 04/14/18 09:44 CONCLUSION: 1. 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 2. No evidence of acute infarct, hemorrhage, mass or edema. 3. No significant change compared to 04/12/2017. . Abdomen/Pelvis CT 04/14/18 10:59 CONCLUSION: 1. Distended gallbladder with cholelithiasis and minimal gas in the fundus. There is no significant pericholecystic fluid or inflammation. 2. Simple left renal cyst. 3. Bibasilar airspace disease. Assessment and Plan - Plan severe Sepsis Probable acute emphysematous cholecystitis (CT findings and RUQ tenderness) CKD Attempted PD catheter placement in 01/2018. AV fistula LUE placed on 01/22/2018. Acute metabolic encephalopathy: sepsis, metabolic. Recs: Continue Zosyn IV Continue Vanco IV for now (target sepsis 15-20) If deteriorates clinically consider adding Micafungin IV Follow cultures follow clinical course. satinder rajan RN No family nos on file.
[2018-04-14] MEDS: Heparin - SQ 10,000 UNITS/ML Vial SQ SCH ×2 (14:25→21:55)
--- NOTE | 2018-04-14 14:37 | MB ---
cc: Joao Fermin MD DATE: 04/14/2018 REASON FOR CONSULTATION: Evaluation of elevated cardiac enzymes. HISTORY OF PRESENT ILLNESS: Nancy Olivas is a 72-year-old woman who was previously seen my colleague, Dr. De Leon. She was brought in for decreased responsiveness at home. Here in the ER, she required intubation. She is thought to be septic, currently on Levophed drip. The patient has a history of end-stage renal disease on dialysis. The patient is currently on a ventilator and sedated, so I cannot obtain any history. PAST MEDICAL HISTORY: Includes diabetes, end-stage renal disease, gastroesophageal reflux disease, hypertension, peritoneal dialysis with a catheter in place, previous stroke, previous TIA. SOCIAL HISTORY: It is unknown if the patient ever smoked before. PHYSICAL EXAMINATION: GENERAL: An elderly white female, supine. She has a central line in, on the ventilator, Diprivan drip is hanging and Levophed is hanging. HEENT: Atraumatic. NECK: I cannot see her neck veins. It is difficult to tell if she has any JVD. There are no carotid bruits. CHEST: Bilateral rhonchi. CARDIAC: S1, S2, tachycardic. I do not appreciate murmurs or gallops. ABDOMEN: Soft. Of note, she has an NG tube and there is black liquid coming out, suggestive of coffee grounds. EXTREMITIES: Reveal no peripheral edema. LABORATORY DATA: White count elevated to 1000 to 12,500 hematocrit 39.8 She has 29% bands on her differential. Potassium 6.0. Lactic acid 6.0. CPK is 475 with a 4.4% MB fraction and a troponin of 5.21. Imaging studies so far include a chest x-ray with mildly prominent interstitial vascular markings and heart mild to moderately enlarged. Head CT suggests old small bilateral cerebellar infarcts, unchanged from 04/2017. Her abdomen and pelvis CT shows distended gallbladder with cholelithiasis, a simple left renal cyst and bibasilar airspace disease. EKG shows sinus rhythm at 100, left atrial abnormality, right bundle branch block, ST-T wave changes laterally. I am suspicious whether she has left ventricular hypertrophy. IMPRESSION: Appears to have evidence for a non-ST segment elevation myocardial infarction. Unfortunately, there is coffee-ground emesis material coming from her NG tube. It is unsafe to initiate IV heparin. She appears to be septic, currently on pressor drips, seriously ill. Prognosis guarded at this point. I will follow with you. Dr. De Leon will not be back until Monday. Joao Fermin MD VEW/ct , 01:17 PM , 01:27 PM
[2018-04-14] MEDS ORDERED: Gelatin 12 MM/7 MM Topical Foam TOPICAL PRN (14:53)
[2018-04-14] MEDS ORDERED: Sod Chloride 0.9% Inj 1,000 ML IV.CONT PRN (14:53)
[2018-04-14] MEDS ORDERED: Heparin 10,000 UNITS/10 ML Vial (for IV use) OTHER PRN (14:53)
[2018-04-14] MEDS ORDERED: Sod Chloride 0.9% Inj 1,000 ML OTHER PRN ×2 (14:53)
[2018-04-14] MEDS ORDERED: Acetaminophen 325 MG Tablet PO PRN (14:53)
[2018-04-14] MEDS: Albumin Human 25% Inj 100 ML IV.SIG PRN ×2 (15:19→15:22)
[2018-04-14] MEDS: Heparin 10,000 UNITS/10 ML Vial (for IV use) OTHER PRN (15:19)
[2018-04-14] MEDS: Oral Hygiene Kit OROPHARYNG SCH (15:21)
[2018-04-14] MEDS: Piperacil/Tazo 2.25 GM Premix 50 ML IV.SIG SCH ×2 (15:44→20:29)
[2018-04-14] MEDS: Pantoprazole Inj 40 MG Vial IV.PUSH SCH (15:45)
--- NOTE | 2018-04-14 16:00 | P.CONGS ---
HPI Gen Surgery Consult Note Consult date: 04/14/18 Narrative: 72 yo F with h/o ESRD on dialysis presents with altered mental status noted to have significant lactic acidosis, transaminitis, leukocytosis, and NSTEMI. CT a /p in ED showed distended gallbladder with stones and minimal air in fundus. She is currently intubated and sedated and on dialysis, not requiring any vasopressors at this time. 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 - Medical History Medical History: Medical History (Last Updated 04/14/18 @ 16:27 by Sheila Gillette MD) AV fistula Diabetes Dialysis catheter clot or failure End stage renal disease GERD (gastroesophageal reflux disease) Hypertension Peritoneal dialysis catheter in place Stroke TIA (transient ischemic attack) - Family History Family History: Family History (Last Updated 04/14/18 @ 16:27 by Sheila Gillette MD) Other Family history unobtainable - Tobacco History Second Hand Smoke Exposure: No Smoking Status: Unknown if ever smoked - Alcohol History How Often Do You Have a Drink Containing Alcohol: Unable to Obtain - Substance Use History Substance History: Unable to Obtain - Travel History Recent Travel in the [place] Within the Last 8 Weeks: No Recent Travel Out of the Country Within the Last 8 Weeks: No - Immunization History Tetanus Immunization: Unsure Hx Influenza Vaccine This Season: Unable to Assess Medications and Allergies Active Medications: Active Medications Acetaminophen (Tylenol) 650 mg PO UNSCH PRN PRN Reason: SEE LABEL COMMENTS Albuterol (Duoneb Neb (Prn)) 1 ampul NEB Q4HR NEB PRN PRN Reason: SHORTNESS OF BREATH Albuterol (Duoneb Neb (Princess)) 1 ampul NEB Q6HR NEB PRINCESS Last Admin: 04/14/18 14:42 Dose: 1 ampul Aspirin (Aspirin Chew) 81 mg PO DAILY [facility] Chlorhexidine Gluconate (Chlorhexidine 2% Cloth) 3 pack TOPICAL DAILY@0400 PRINCESS Stop: 04/20/18 03:59 Chlorhexidine Gluconate (Chlorhexidine 2% Cloth) 3 pack TOPICAL DAILY@0400 PRN PRN Reason: Extra cloth needed Stop: 04/20/18 03:59 Chlorhexidine Gluconate (Peridex 0.12% Oral Kit) 15 ml OROPHARYNG BID@0800, 2000 [facility] [place] Clonidine HCl (Catapres) 0.1 mg PO UNSCH PRN PRN Reason: SEE LABEL COMMENTS Dextrose (D50w Vial) 50 ml IV.PUSH UNSCH PRN PRN Reason: PER HYPOGLYCEMIA PROTOCOL Diphenhydramine HCl (Benadryl) 25 mg PO UNSCH PRN PRN Reason: SEE LABEL COMMENTS Fentanyl Citrate (Fentanyl Inj) 50 mcg IV.PUSH Q1H PRN PRN Reason: SEE LABEL COMMENTS Gelatin (Gelfoam 12 Mm/7 Mm Topical) 1 foam TOPICAL PRN PRN PRN Reason: help stop bleeding from site Gentamicin Sulfate (Gentamicin Inj) 20 mg OTHER WITH DIALYSIS PRN PRN Reason: Dwell Gentamycin Lock Last Admin: 04/14/18 15:20 Dose: 20 mg Glucagon (Glucagon Inj) 1 mg OTHER PRN PRN PRN Reason: for Hypoglycemia Protocol Heparin Sodium (Porcine) (Heparin Inj) 5,000 units SQ Q12HR [facility] Last Admin: 04/14/18 14:25 Dose: 5,000 units Heparin Sodium (Porcine) (Heparin Inj) 8,000 units OTHER WITH DIALYSIS PRN PRN Reason: for machine prime Heparin Sodium (Porcine) (Heparin Inj) 1,000 units OTHER WITH DIALYSIS PRN PRN Reason: Dwell Heparin to Fill Catheter Last Admin: 04/14/18 15:19 Dose: 1,000 units Propofol (Diprivan 1000 Mg/100 Ml Inj) 1,000 mg in 100 mls @ 2.313 mls/hr IV.CONT TITRATE PRN; Protocol PRN Reason: Per Protocol Last Titration: 04/14/18 13:30 Dose: 20 mcg/kg/min, 9.25 mls/hr Piperacillin/Tazobactam/Dextrose (Zosyn 2.25 Gm Premix) 50 mls @ 100 mls/hr IV.SIG Q6H [facility] [place] Last Admin: 04/14/18 15:44 Dose: 100 mls/hr Norepinephrine Bitartrate 16 (mg/ Sodium Chloride) 250 mls @ 1.87 mls/hr IV.CONT TITRATE PRN; Protocol PRN Reason: See Protocol Sodium Chloride (Ns Inj) 1,000 mls @ 0 mls/hr OTHER .Q0M PRN PRN Reason: for prime and rinse back Sodium Chloride (Ns Inj) 1,000 mls @ 200 mls/hr OTHER .Q5H PRN PRN Reason: for dialyzer flush PRN Sodium Chloride (Ns Inj) 1,000 mls @ 0 mls/hr IV.CONT .Q0M PRN PRN Reason: hypotension / volume replace Albumin Human (Flexbumin 25% Inj) 100 mls @ 60 mls/hr IV.SIG WITH DIALYSIS PRN PRN Reason: hypotension / volume replace Last Infusion: 04/14/18 15:35 Dose: Infused Insulin Aspart (Novolog Insulin Correctional Sugar Inj) 0 unit SQ Q6HR PRINCESS; Protocol Mannitol (Mannitol Inj) 12.5 gm IV.PUSH UNSCH PRN PRN Reason: hypotension / volume replace Miscellaneous Medication () 1 each OROPHARYNG 0000,0400,1200,1600 PRINCESS Last Admin: 04/14/18 15:21 Dose: 1 each Nitroglycerin (Nitrostat Sl) 0.4 mg SL Q5M PRN PRN Reason: CHEST PAIN Ondansetron HCl (Zofran Inj) 4 mg IV.PUSH UNSCH PRN PRN Reason: NAUSEA OR VOMITING Pantoprazole Sodium (Protonix Inj) 40 mg IV.PUSH Q12H PRINCESS Last Admin: 04/14/18 15:45 Dose: 40 mg Pharmacy Profile Note (Vancomycin Consult Pharmacy) 1 each OTHER UNSCH PRN PRN Reason: Pharmacy to dose Sodium Chloride (Ns Flush) 5 ml IV.FLUSH PRN PRN PRN Reason: flush each lumen during HD Terbutaline Sulfate (Brethine Inj) 1 mg SQ UNSCH PRN PRN Reason: For Extravasation Allergies Allergy/AdvReac Type Severity Reaction Status Date / Time No Known Allergies Allergy Verified 01/22/18 10:23 Home Medications Medication Instructions Recorded Confirmed Type clonidine HCl 0.1 mg PO DAILY PRN 01/22/18 01/22/18 History furosemide 80 mg PO DAILY 01/22/18 01/22/18 History hydralazine 50 mg PO QID 01/22/18 01/22/18 History hydrocodone-acetaminophen [[place]] 1 tab PO Q4-6H PRN 01/22/18 01/22/18 History nifedipine 90 mg PO DAILY 01/22/18 01/22/18 History pantoprazole [Protonix] 40 mg PO DAILY 01/22/18 01/22/18 History Exam Vital signs: Vital Signs 04/14/18 09:43 04/14/18 10:03 04/14/18 10:10 Temperature Pulse Rate 105 H 94 H 101 H Respiratory Rate 22 18 14 Blood Pressure 183/113 H 156/69 H 164/71 H Pulse Oximetry 99 99 96 04/14/18 10:12 04/14/18 10:37 04/14/18 10:40 Temperature 100.5 F H Pulse Rate 96 H Respiratory Rate 26 H 16 Blood Pressure 135/89 Pulse Oximetry 97 95 95 04/14/18 11:14 04/14/18 11:15 04/14/18 11:25 Temperature Pulse Rate 85 Respiratory Rate 14 14 Blood Pressure 151/70 H Pulse Oximetry 97 99 04/14/18 11:44 04/14/18 11:55 04/14/18 12:21 Temperature 98.7 F Pulse Rate 83 85 87 Respiratory Rate 14 18 14 Blood Pressure 93/55 L 129/53 L 146/66 H Pulse Oximetry 95 96 04/14/18 12:52 04/14/18 12:54 04/14/18 13:02 Temperature Pulse Rate 77 78 78 Respiratory Rate 16 16 Blood Pressure 90/52 L 111/58 L Pulse Oximetry 93 L 04/14/18 13:30 04/14/18 13:40 04/14/18 14:01 Temperature 99.5 F Pulse Rate 86 Respiratory Rate 27 H 16 Blood Pressure 184/81 H Pulse Oximetry 100 04/14/18 14:42 04/14/18 15:09 Temperature Pulse Rate 75 Respiratory Rate 16 16 Blood Pressure Pulse Oximetry 96 Intake & Output 04/13/18 04/14/18 04/14/18 18:59 06:59 18:59 Intake Total 1600 / 1600 Output Total 750 / 750 Balance 850 / 850 Weight 69.2 kg Intake: IV 1600 / 1600 Flexbumin 25% Inj 100 ML @ 60 200 / 200 mls/hr IV.SIG WITH DIALYSIS PRN Rx#:[id number] Zosyn 2.25 GM Premix 50 ML @ 50 / 50 100 mls/hr IV.SIG ONCE ONE Rx#: [id number] NS Inj 1,000 ML @ Wide Open IV. 1000 / 1000 SIG BOLUS ONE Rx#:[id number] Vancomycin Inj 1,000 MG In NS 250 / 250 Inj 250 ML @ 250 mls/hr IV.SIG ONCE ONE Rx#:[id number] Flagyl 500 MG Inj 100 ML @ 100 100 / 100 mls/hr IV.SIG ONCE ONE Rx#: [id number] Output: Gastric Drainage 750 / 750 Oral Orogastric Tube 750 / 750 Other: Weight On Admission 69.2 kg Narrative: GENERAL: Intubated and sedated. HEAD: Normocephalic. Atraumatic. EYES: Pupils equal round and reactive to light bilaterally. No scleral icterus. ENT: ETT in place. NECK: Trachea midline. CHEST: Ventilated. CARDIOVASCULAR: Regular rate and rhythm. ABDOMEN: Multiple port scars from laparoscopy which appear to be fairly new; soft, nondistended, no mass EXTREMITIES: No cyanosis or edema. SKIN: Warm, dry, nonjaundiced. Results - Labs 04/14/18 10:20 04/14/18 18:00 Laboratory Results - last 24 hr 04/14/18 04/14/18 04/14/18 10:20 10:20 10:20 WBC 12.5 H RBC 3.80 L Hgb 12.6 Hct 39.8 MCV 104.7 H MCH 33.2 MCHC 31.7 L RDW 20.3 H Plt Count 275 MPV 8.9 Prelim Diff (Auto) Slide review pending Neut % (Auto) 90.5 H Lymph % (Auto) 4.6 L [place] % (Auto) 4.8 Eos % (Auto) 0.0 Baso % (Auto) 0.1 Neut # (Auto) 11.3 H Lymph # (Auto) 0.6 L [place] # (Auto) 0.6 Eos # (Auto) 0.0 Baso # (Auto) 0.0 WBC Differential Manual diff final Seg Neuts % (Manual) 64 Band Neuts % (Manual) 29 H Lymphocytes % (Manual) 6 L Monocytes % (Manual) 1 Abs Neuts (Manual) 11.6 H Differential Comment . Toxic Vacuolation Present H Platelet Estimate Normal Platelet Morphology Normal Ovalocytes 1+ H PT 12.7 H INR 1.3 APTT 36.9 H Puncture Site Patient Temperature O2 Saturation ABG pH ABG pCO2 ABG pO2 ABG HCO3 ABG O2 Content ABG Base Excess ABG Methemoglobin Eric Test Hemoglobin Carboxyhemoglobin O2 Delivery Device Vent Setting Inspired O2 Critical Value Sodium 141 Potassium 6.0 H Chloride 100 Carbon Dioxide 16.7 L Anion Gap 24 H BUN 69 H Creatinine 9.96 H Estimated GFR 4 L Random Glucose 170 H Lactic Acid Calcium 7.5 L Magnesium 2.2 Total Bilirubin 0.6 AST 1992 H ALT 758 H Alkaline Phosphatase 69 Total Creatine Kinase 475 H CK-MB (CK-2) 20.8 H CK-MB (CK-2) % 4.4 H* Troponin I 5.21 H* Total Protein 9.0 H Albumin 3.5 Lipase 176 Urine Color Urine Clarity Urine pH Ur Specific Collison Urine Protein Urine Glucose (UA) Urine Ketones Urine Occult Blood Urine Nitrate Urine Bilirubin Urine Urobilinogen Ur Leukocyte Esterase Urine RBC Urine WBC Ur Squamous Epith Cells Amorphous Sediment Urine Bacteria Hyaline Casts Urine Mucus Micro UA Comment Ur Microscopic Review Urine Culture Comments Nasal Screen MRSA (PCR) 04/14/18 04/14/18 04/14/18 10:20 10:32 10:35 WBC RBC Hgb Hct MCV MCH MCHC RDW Plt Count MPV Prelim Diff (Auto) Neut % (Auto) Lymph % (Auto) [place] % (Auto) Eos % (Auto) Baso % (Auto) Neut # (Auto) Lymph # (Auto) [place] # (Auto) Eos # (Auto) Baso # (Auto) WBC Differential Seg Neuts % (Manual) Band Neuts % (Manual) Lymphocytes % (Manual) Monocytes % (Manual) Abs Neuts (Manual) Differential Comment Toxic Vacuolation Platelet Estimate Platelet Morphology Ovalocytes PT INR APTT Puncture Site Right brachial Patient Temperature 98.6 O2 Saturation 93 ABG pH 7.19 L* ABG pCO2 48 H ABG pO2 94 ABG HCO3 17 L ABG O2 Content 16.7 ABG Base Excess -9.4 L ABG Methemoglobin 0.9 Eric Test Present Hemoglobin 12.7 Carboxyhemoglobin 1.2 O2 Delivery Device Ventilator Vent Setting Ac,14,450,[id number] Inspired O2 60 Critical Value Yes Sodium Potassium Chloride Carbon Dioxide Anion Gap BUN Creatinine Estimated GFR Random Glucose Lactic Acid 6.0 H* Calcium Magnesium Total Bilirubin AST ALT Alkaline Phosphatase Total Creatine Kinase CK-MB (CK-2) CK-MB (CK-2) % Troponin I Total Protein Albumin Lipase Urine Color Lynsey Urine Clarity Cloudy H Urine pH 5.0 Ur Specific Collison 1.017 Urine Protein 500 or greater Urine Glucose (UA) Negative Urine Ketones Negative Urine Occult Blood Small H Urine Nitrate Negative Urine Bilirubin Negative Urine Urobilinogen Less than 2 Ur Leukocyte Esterase Negative Urine RBC 1 Urine WBC 10 H Ur Squamous Epith Cells 3 Amorphous Sediment Moderate H Urine Bacteria Few H Hyaline Casts 5 Urine Mucus Few H Micro UA Comment Cath-culture ind Ur Microscopic Review Not Reportable Urine Culture Comments Cath-cult indicated Nasal Screen MRSA (PCR) 04/14/18 14:00 WBC RBC Hgb Hct MCV MCH MCHC RDW Plt Count MPV Prelim Diff (Auto) Neut % (Auto) Lymph % (Auto) [place] % (Auto) Eos % (Auto) Baso % (Auto) Neut # (Auto) Lymph # (Auto) [place] # (Auto) Eos # (Auto) Baso # (Auto) WBC Differential Seg Neuts % (Manual) Band Neuts % (Manual) Lymphocytes % (Manual) Monocytes % (Manual) Abs Neuts (Manual) Differential Comment Toxic Vacuolation Platelet Estimate Platelet Morphology Ovalocytes PT INR APTT Puncture Site Patient Temperature O2 Saturation ABG pH ABG pCO2 ABG pO2 ABG HCO3 ABG O2 Content ABG Base Excess ABG Methemoglobin Eric Test Hemoglobin Carboxyhemoglobin O2 Delivery Device Vent Setting Inspired O2 Critical Value Sodium Potassium Chloride Carbon Dioxide Anion Gap BUN Creatinine Estimated GFR Random Glucose Lactic Acid Calcium Magnesium Total Bilirubin AST ALT Alkaline Phosphatase Total Creatine Kinase CK-MB (CK-2) CK-MB (CK-2) % Troponin I Total Protein Albumin Lipase Urine Color Urine Clarity Urine pH Ur Specific Collison Urine Protein Urine Glucose (UA) Urine Ketones Urine Occult Blood Urine Nitrate Urine Bilirubin Urine Urobilinogen Ur Leukocyte Esterase Urine RBC Urine WBC Ur Squamous Epith Cells Amorphous Sediment Urine Bacteria Hyaline Casts Urine Mucus Micro UA Comment Ur Microscopic Review Urine Culture Comments Nasal Screen MRSA (PCR) Mrsa detected - Imaging Imaging: ITS Impressions Chest X-Ray 04/14/18 09:44 CONCLUSION: Satisfactory position of supporting devices Interval placement of bilateral central venous catheters without evidence of pneumothorax. Cardiomegaly with out evidence of acute airspace disease or significant pulmonary edema. Head CT 04/14/18 09:44 CONCLUSION: 1. 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 2. No evidence of acute infarct, hemorrhage, mass or edema. 3. No significant change compared to 04/12/2017. . Abdomen/Pelvis CT 04/14/18 10:59 CONCLUSION: 1. Distended gallbladder with cholelithiasis and minimal gas in the fundus. There is no significant pericholecystic fluid or inflammation. 2. Simple left renal cyst. 3. Bibasilar airspace disease. CT scan - abdomen: report reviewed, image reviewed CT scan - pelvis: report reviewed, image reviewed US - abdomen: report reviewed, image reviewed Assessment and Plan - Assessment (1) Gallstones Code(s): K80.20 - Calculus of gallbladder without cholecystitis without obstruction Status: Acute (2) Liver enzyme elevation Code(s): R74.8 - Abnormal levels of other serum enzymes Status: Acute - Plan 72 yo female with end-stage renal disease who presented with altered mental status and found to have NSTEMI and severe sepsis. Gallbladder imaging shows gallstones, a distended gallbladder, and minimal air in the fundus of the gallbladder. She has significant transaminitis which could possibly be secondary to liver parenchyma ischemia. I requested a stat ultrasound of the right upper quadrant which has been performed and shows gallstones but no wall thickening or pericholecystic fluid, and a dilated common bile duct at 9 mm. She does not have elevation of bilirubin or alkaline phosphatase to indicate biliary obstruction or cholangitis I am unsure about the etiology of the dilated common duct. Based on imaging findings I doubt that emphysematous cholecystitis is present. Other causes of sepsis are continuing to be evaluated and she is on broad-spectrum antibiotic coverage. Do not recommend cholecystostomy tube or cholecystectomy at this time.
--- NOTE | 2018-04-14 16:06 | US ---
EXAM DATE: 04/14/2018 3:47 PM EST AGE/SEX: 72 years / Female INDICATIONS: Right upper pain. CLINICAL DATA: This is the patient's initial encounter. Patient reports that signs and symptoms have been present for 1 day and indicates a pain score of Nonresponsive. MEDICAL/SURGICAL HISTORY: Diabetes. Gastroesophageal reflux disease. Hypertension. End stage renal disease. Stroke. TIA. Peritoneal dialysis catheter. None. [place] [facility] [place] CONTRAST, [place]/14/2018. . MEASUREMENTS: Liver:__ 16.9 cm. Common Bile Duct:__ 9mm. Right Kidney:__ 8.1 x 4.4 x 4.8 cm. . FINDINGS: Liver: Echogenicity is within normal limits. No focal lesion is identified. There is no intrahepatic bile duct dilatation. Portal Vein: Hepatopedal flow seen in portal vein. Common Duct: No intraluminal mass or stone visualized. Gallbladder: Gallbladder is distended with wall thickness measuring up to 4 mm. There are stones and sludge within the lumen. ETT demonstrated a small amount of intraluminal air. Sonographic Corbin sig n is negative. Pancreas: The visualized portions are within normal limits Right Kidney: Right kidney is atrophic with increased echogenicity of the renal parenchyma. There is a cystic lesion in the mid kidney and renal sinus measuring 3.4 x 3.3 x 3.5 cm. It contains septatio ns. There is no hydronephrosis or solid mass Other: None. CONCLUSION: 1. Gallbladder contains sludge and stones. However, no additional findings are present to definitive ly indicate acute cholecystitis. 2. Common bile duct is enlarged but contains no visible stone. Given the pain one could consider [facility] P for further evaluation of the common duct stone as a cause for the duct dilatation in right upper q uadrant pain. 3. Atrophic right kidney with changes suggesting chronic medical renal disease. There is a complex c ystic lesion in the mid kidney and renal sinus measuring up to 3.5 cm. At some point ideally be [facility] characterized with renal protocol MRI with and without intravenous contrast. This should be perfor med on an elective basis when condition permits. Electronically signed by: Antonio Perea MD 04/14/2018 4:05 PM EST
--- NOTE | 2018-04-14 16:29 | P.CONNP ---
History of Present Illness Service: Nephrology Consult date: 04/14/18 Requesting Physician: Valery Alvarez Reason for Consult: End-stage renal disease with hyperkalemia Primary Care Provider: UNKNOWN Chief Complaint: AMS, septic shock History of Present Illness: Patient is a 72-year-old white female hemodialysis diabetes, hypertension, ESRD going on dialysis on Monday, and Monday on unresponsive by roommate, she was subsequently found to have blood pressure stabilized in emergency, she was intubated for airway CT of the abdomen showed distended gallbladder with gallstones, patient has been diagnosed with sepsis, encephalopathy, respiratory failure and hyperkalemia, patient is seen during hemodialysis treatment. 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 - Medical History Medical History: Medical History (Last Updated 04/14/18 @ 16:27 by Sheila Gillette MD) AV fistula Diabetes Dialysis catheter clot or failure End stage renal disease GERD (gastroesophageal reflux disease) Hypertension Peritoneal dialysis catheter in place Stroke TIA (transient ischemic attack) - Family History Family History: Family History (Last Updated 04/14/18 @ 16:27 by Sheila Gillette MD) Other Family history unobtainable - Social History I have reviewed the patient's Social History: Yes - Tobacco History Second Hand Smoke Exposure: No Smoking Status: Unknown if ever smoked - Alcohol History How Often Do You Have a Drink Containing Alcohol: Unable to Obtain - Substance Use History Substance History: Unable to Obtain - Travel History Recent Travel in the [place] Within the Last 8 Weeks: No Recent Travel Out of the Country Within the Last 8 Weeks: No - Immunization History Tetanus Immunization: Unsure Hx Influenza Vaccine This Season: Unable to Assess Medications and Allergies Active Medications: Active Medications Acetaminophen (Tylenol) 650 mg PO UNSCH PRN PRN Reason: SEE LABEL COMMENTS Albuterol (Duoneb Neb (Prn)) 1 ampul NEB Q4HR NEB PRN PRN Reason: SHORTNESS OF BREATH Albuterol (Duoneb Neb (Princess)) 1 ampul NEB Q6HR NEB PRINCESS Last Admin: 04/14/18 14:42 Dose: 1 ampul Aspirin (Aspirin Chew) 81 mg PO DAILY PRINCESS Chlorhexidine Gluconate (Chlorhexidine 2% Cloth) 3 pack TOPICAL DAILY@0400 [facility] Stop: 04/20/18 03:59 Chlorhexidine Gluconate (Chlorhexidine 2% Cloth) 3 pack TOPICAL DAILY@0400 PRN PRN Reason: Extra cloth needed Stop: 04/20/18 03:59 Chlorhexidine Gluconate (Peridex 0.12% Oral Kit) 15 ml OROPHARYNG BID@0800, 2000 [facility] Clonidine HCl (Catapres) 0.1 mg PO UNSCH PRN PRN Reason: SEE LABEL COMMENTS Dextrose (D50w Vial) 50 ml IV.PUSH UNSCH PRN PRN Reason: PER HYPOGLYCEMIA PROTOCOL Diphenhydramine HCl (Benadryl) 25 mg PO UNSCH PRN PRN Reason: SEE LABEL COMMENTS Fentanyl Citrate (Fentanyl Inj) 50 mcg IV.PUSH Q1H PRN PRN Reason: SEE LABEL COMMENTS Gelatin (Gelfoam 12 Mm/7 Mm Topical) 1 foam TOPICAL PRN PRN PRN Reason: help stop bleeding from site Gentamicin Sulfate (Gentamicin Inj) 20 mg OTHER WITH DIALYSIS PRN PRN Reason: Dwell Gentamycin Lock Last Admin: 04/14/18 15:20 Dose: 20 mg Glucagon (Glucagon Inj) 1 mg OTHER PRN PRN PRN Reason: for Hypoglycemia Protocol Heparin Sodium (Porcine) (Heparin Inj) 5,000 units SQ Q12HR [facility] Last Admin: 04/14/18 14:25 Dose: 5,000 units Heparin Sodium (Porcine) (Heparin Inj) 8,000 units OTHER WITH DIALYSIS PRN PRN Reason: for machine prime Heparin Sodium (Porcine) (Heparin Inj) 1,000 units OTHER WITH DIALYSIS PRN PRN Reason: Dwell Heparin to Fill Catheter Last Admin: 04/14/18 15:19 Dose: 1,000 units Propofol (Diprivan 1000 Mg/100 Ml Inj) 1,000 mg in 100 mls @ 2.313 mls/hr IV.CONT TITRATE PRN; Protocol PRN Reason: Per Protocol Last Titration: 04/14/18 13:30 Dose: 20 mcg/kg/min, 9.25 mls/hr Piperacillin/Tazobactam/Dextrose (Zosyn 2.25 Gm Premix) 50 mls @ 100 mls/hr IV.SIG Q6H [facility] Last Infusion: 04/14/18 16:14 Dose: Infused Norepinephrine Bitartrate 16 (mg/ Sodium Chloride) 250 mls @ 1.87 mls/hr IV.CONT TITRATE PRN; Protocol PRN Reason: See Protocol Sodium Chloride (Ns Inj) 1,000 mls @ 0 mls/hr OTHER .Q0M PRN PRN Reason: for prime and rinse back Sodium Chloride (Ns Inj) 1,000 mls @ 200 mls/hr OTHER .Q5H PRN PRN Reason: for dialyzer flush PRN Sodium Chloride (Ns Inj) 1,000 mls @ 0 mls/hr IV.CONT .Q0M PRN PRN Reason: hypotension / volume replace Albumin Human (Flexbumin 25% Inj) 100 mls @ 60 mls/hr IV.SIG WITH DIALYSIS PRN PRN Reason: hypotension / volume replace Last Infusion: 04/14/18 15:35 Dose: Infused Insulin Aspart (Novolog Insulin Correctional Sugar Inj) 0 unit SQ Q6HR PRINCESS; Protocol Mannitol (Mannitol Inj) 12.5 gm IV.PUSH UNSCH PRN PRN Reason: hypotension / volume replace Miscellaneous Medication () 1 each OROPHARYNG 0000,0400,1200,1600 PRINCESS Last Admin: 04/14/18 15:21 Dose: 1 each Nitroglycerin (Nitrostat Sl) 0.4 mg SL Q5M PRN PRN Reason: CHEST PAIN Ondansetron HCl (Zofran Inj) 4 mg IV.PUSH UNSCH PRN PRN Reason: NAUSEA OR VOMITING Pantoprazole Sodium (Protonix Inj) 40 mg IV.PUSH Q12H PRINCESS Last Admin: 04/14/18 15:45 Dose: 40 mg Pharmacy Profile Note (Vancomycin Consult Pharmacy) 1 each OTHER UNSCH PRN PRN Reason: Pharmacy to dose Sodium Chloride (Ns Flush) 5 ml IV.FLUSH PRN PRN PRN Reason: flush each lumen during HD Terbutaline Sulfate (Brethine Inj) 1 mg SQ UNSCH PRN PRN Reason: For Extravasation Allergies Allergy/AdvReac Type Severity Reaction Status Date / Time No Known Allergies Allergy Verified 01/22/18 10:23 Home Medications Medication Instructions Recorded Confirmed Type clonidine HCl 0.1 mg PO DAILY PRN 01/22/18 01/22/18 History furosemide 80 mg PO DAILY 01/22/18 01/22/18 History hydralazine 50 mg PO QID 01/22/18 01/22/18 History hydrocodone-acetaminophen [[place]] 1 tab PO Q4-6H PRN 01/22/18 01/22/18 History nifedipine 90 mg PO DAILY 01/22/18 01/22/18 History pantoprazole [Protonix] 40 mg PO DAILY 01/22/18 01/22/18 History Exam Vital signs: Vital Signs 04/14/18 09:43 04/14/18 10:03 04/14/18 10:10 Temperature Pulse Rate 105 H 94 H 101 H Respiratory Rate 22 18 14 Blood Pressure 183/113 H 156/69 H 164/71 H Pulse Oximetry 99 99 96 04/14/18 10:12 04/14/18 10:37 04/14/18 10:40 Temperature 100.5 F H Pulse Rate 96 H Respiratory Rate 26 H 16 Blood Pressure 135/89 Pulse Oximetry 97 95 95 04/14/18 11:14 04/14/18 11:15 04/14/18 11:25 Temperature Pulse Rate 85 Respiratory Rate 14 14 Blood Pressure 151/70 H Pulse Oximetry 97 99 04/14/18 11:44 04/14/18 11:55 04/14/18 12:21 Temperature 98.7 F Pulse Rate 83 85 87 Respiratory Rate 14 18 14 Blood Pressure 93/55 L 129/53 L 146/66 H Pulse Oximetry 95 96 04/14/18 12:52 04/14/18 12:54 04/14/18 13:02 Temperature Pulse Rate 77 78 78 Respiratory Rate 16 16 Blood Pressure 90/52 L 111/58 L Pulse Oximetry 93 L 04/14/18 13:30 04/14/18 13:40 04/14/18 14:01 Temperature 99.5 F Pulse Rate 86 Respiratory Rate 27 H 16 Blood Pressure 184/81 H Pulse Oximetry 100 04/14/18 14:42 04/14/18 15:09 04/14/18 16:00 Temperature 98.9 F Pulse Rate 75 81 Respiratory Rate 16 16 16 Blood Pressure 107/58 L Pulse Oximetry 96 95 Intake & Output 04/13/18 04/14/18 04/14/18 18:59 06:59 18:59 Intake Total 1650 / 1650 Output Total 750 / 750 Balance 900 / 900 Weight 69.2 kg Intake: IV 1650 / 1650 Flexbumin 25% Inj 100 ML @ 60 200 / 200 mls/hr IV.SIG WITH DIALYSIS PRN Rx#:[id number] Zosyn 2.25 GM Premix 50 ML @ 100 / 100 100 mls/hr IV.SIG Q6H PRINCESS Rx#: [id number] NS Inj 1,000 ML @ Wide Open IV. 1000 / 1000 SIG BOLUS ONE Rx#:[id number] Vancomycin Inj 1,000 MG In NS 250 / 250 Inj 250 ML @ 250 mls/hr IV.SIG ONCE ONE Rx#:[id number] Flagyl 500 MG Inj 100 ML @ 100 100 / 100 mls/hr IV.SIG ONCE ONE Rx#: [id number] Output: Gastric Drainage 750 / 750 Oral Orogastric Tube 750 / 750 Other: Weight On Admission 69.2 kg Narrative: GENERAL: Well-nourished, well-developed intubated patient. SKIN: Warm and dry. HEAD: Normocephalic. EYES: No scleral icterus. No injection or drainage. NECK: Supple, trachea midline. No JVD or lymphadenopathy. CARDIOVASCULAR: Regular rate and rhythm without murmurs, gallops, or rubs. RESPIRATORY: Breath sounds equal bilaterally. No accessory muscle use. GASTROINTESTINAL: Abdomen soft, nondistended. EXTREMITIES: Mild edema. Fistula left arm NEUROLOGICAL: Unresponsive Results - Lab Results 04/15/18 09:40 04/15/18 04:45 Most recent lab results ABG pH 7.19 (7.380-7.420) L* 04/14/18 10:32 ABG pCO2 48 mmHg (38-42) H 04/14/18 10:32 ABG pO2 94 mmHg (61-120) 04/14/18 10:32 ABG HCO3 17 mmol/L (22-26) L 04/14/18 10:32 Calcium 7.5 mg/dL (8.5-10.1) L 04/14/18 10:20 Magnesium 2.2 mg/dL (1.5-2.5) 04/14/18 10:20 - Image Kidney/bladder ultrasound: report reviewed (, Stone and gallbladder distention) Assessment and Plan - Assessment (1) ESRD (end stage renal disease) Code(s): N18.6 - End stage renal disease Status: Chronic Plan: Patient seen during hemodialysis tolerating it well 2.5 liter ultrafiltrate as tolerated on 1K bath continue supportive care Monday, and Saturdays Monitor progress (2) Hyperkalemia Code(s): E87.5 - Hyperkalemia Status: Acute Plan: Patient is seen D50/insulin/bicarbonate seen during hemodialysis doing well (3) Acute metabolic encephalopathy Code(s): G93.41 - Metabolic encephalopathy Status: Acute (4) Acute hypoxemic respiratory failure Code(s): J96.01 - Acute respiratory failure with hypoxia Status: Acute Plan: On ventilator (5) Septic shock Code(s): A41.9 - Sepsis, unspecified organism; R65.21 - Severe sepsis with septic shock Status: Resolved Plan: On broad-spectrum antibiotic (6) Emphysematous cholecystitis Code(s): K81.0 - Acute cholecystitis Status: Acute Plan: Consulted general surgery
[2018-04-14 17:05] LABS: Troponin I 7.12 ng/mL (0.02-0.05)
[2018-04-14 17:23] LABS: Creatine Kinase MB 27.5 ng/mL (0.5-3.6)
[2018-04-14] MEDS: Insulin NovoLOG Aspart Correctional Sugar Inj SQ SCH (18:28)
[2018-04-14 19:59] LABS: Alanine Aminotransferase 967 U/L (10-53); Albumin 4.3 g/dL (3.4-5.0); Alkaline Phosphatase 47 U/L (45-117); Anion Gap 11 meq/L (5-15); Aspartate Aminotransferase 2182 U/L (15-37); Blood Urea Nitrogen 38 mg/dL (7-18); Calcium 7.7 mg/dL (8.5-10.1); Carbon Dioxide 27.8 meq/L (21.0-32.0); Chloride 104 meq/L (98-107); Creatine Kinase 685 U/L (26-192); Glomerular Filtration Rate 7 mL/min (>89); Glucose,Random 88 mg/dL (74-106); Potassium 3.6 meq/L (3.5-5.1); Sodium 143 meq/L (136-145); Total Protein 8.6 g/dL (6.4-8.2)
[2018-04-14 20:02] LABS: Troponin I 7.39 ng/mL (0.02-0.05)
[2018-04-14 20:14] LABS: CKMB Percent 3.3 % (0.0-4.0); Creatine Kinase MB 22.4 ng/mL (0.5-3.6)
[2018-04-14] MEDS: Chlorhexidine 0.12% Oral Kit 15 ML UDC OROPHARYNG SCH (20:29)
[2018-04-14] MEDS ORDERED: Famotidine PF Inj 20 MG/2 ML Vial IV.PUSH SCH (21:00)
--- NOTE | 2018-04-14 21:04 | ECG ---
Date Performed: 04/14/2018 Time Performed: 09:40:12 PTAGE: 72 years EKG: Sinus rhythm WITH SINUS ARRHYTHMIA POSSIBLE LEFT ATRIAL ENLARGEMENT RIGHT BUNDLE BRANCH BLOCK MODERATE T-WAVE ABN ORMALITY, POSSIBLY FROM LVH Compared to previous tracing, the lateral ST abnormality is new. Patient is no longer bradycardic ABNORMAL ECG PREVIOUS TRACING : 10/30/2017 09.26 DOCTOR: Joao Fermin Interpretating Date/Time 04/14/2018 21:02:04
[2018-04-14 22:05] LABS: Hepatitits B Surface Antigen Nonreactive (Nonreactive)
[2018-04-15] MEDS: Insulin NovoLOG Aspart Correctional Sugar Inj SQ SCH ×4 (00:23→17:40)
[2018-04-15] MEDS: Oral Hygiene Kit OROPHARYNG SCH ×4 (00:42→15:53)
[2018-04-15 01:14] LABS: Hepatitis A IgM Antibody Nonreactive (Nonreactive)
[2018-04-15] MEDS: Pantoprazole Inj 40 MG Vial IV.PUSH SCH ×2 (02:26→14:46)
[2018-04-15] MEDS: Piperacil/Tazo 2.25 GM Premix 50 ML IV.SIG SCH ×4 (02:26→20:45)
[2018-04-15] MEDS: Propofol 1000 mg/100 ml Inj 1,000 MG/100 ML BOTTLE IV.CONT PRN ×3 (03:25→18:09)
[2018-04-15] MEDS ORDERED: Chlorhexidine Gluconate 2% 1 Pack (2 Cloths) TOPICAL PRN (04:00)
[2018-04-15] MEDS: Chlorhexidine Gluconate 2% 1 Pack (2 Cloths) TOPICAL SCH (04:36)
[2018-04-15 06:17] LABS: Alanine Aminotransferase 806 U/L (10-53); Albumin 3.5 g/dL (3.4-5.0); Alkaline Phosphatase 45 U/L (45-117); Anion Gap 16 meq/L (5-15); Aspartate Aminotransferase 1050 U/L (15-37); Blood Urea Nitrogen 54 mg/dL (7-18); Calcium 7.5 mg/dL (8.5-10.1); Carbon Dioxide 24.2 meq/L (21.0-32.0); Chloride 103 meq/L (98-107); Glomerular Filtration Rate 5 mL/min (>89); Glucose,Random 133 mg/dL (74-106); Potassium 4.3 meq/L (3.5-5.1); Sodium 143 meq/L (136-145); Vancomycin,Random 11.1 Comment
[2018-04-15] MEDS: Heparin - SQ 10,000 UNITS/ML Vial SQ SCH ×2 (08:14→21:40)
[2018-04-15] MEDS: Chlorhexidine 0.12% Oral Kit 15 ML UDC OROPHARYNG SCH ×2 (08:14→20:45)
--- NOTE | 2018-04-15 09:53 | P.PNCC ---
Subjective Subjective Remarks/Hospital Course: Patient is a 72-year-old female with past medical history significant for previous strokes, TIA, end-stage renal disease on hemodialysis (Monday, Monday schedule), Left AV fistula on 01/2018, type 2 diabetes, and hypertension. EMS was called as her roommate found her unresponsive last seen normal yesterday night. IV 0.4 mg of Narcan was given without any response. Patient was intubated in the emergency department for airway protection, for a GCS 8. Lab work showed leukocytosis of 12,500 with a left shift of 90% neutrophilia, 29% bands. Lactic acid came back at 6. CMP showed potassium of 6.0 bicarb of 16.7, anion gap of 24, liver enzymes were markedly elevated AST 1992 ALT 758, CPK 475, troponin 5.21. EKG did not show any evidence of acute ST elevation. ABG shows pH of 7.19 PCO2 of 48 PaO2 of [address] abdomen pelvis showed distended gallbladder with cholelithiasis, also small amount of air in the fundus of the gallbladder. Critical care medicine was consulted for admission. I evaluated the patient in the emergency department. She is acutely ill critical appearing. Intermittently hypotensive. Dr. Vargas has placed a left subclavian central line. I will start Levophed if needed. Patient received Zosyn and Flagyl in the ED. I will place patient on vancomycin and Zosyn renally dosed. Pierre cultures have been sent. With the CT finding I contacted Dr. Cortes who requested stat ultrasound of the right upper quadrant. Also ID was consulted and I discussed with Dr. Montaño. Patient has healed scars probably few week old laparoscopic abdominal surgery, it is unclear what kind of surgery she had. Dr. Fermin consulted for an STEMI. Nephrology Dr. Gillette consulted for emergent hemodialysis Subjective 04/15 -T-max 101. Remains on broad-spectrum antibiotics. Noted cool left fingers not cyanotic but will check fistula Doppler and arterial Dopplers and venous Doppler left upper extremity. Central line placed left subclavian noted. Objective Vital Signs / I&O: Vital Signs 04/14/18 10:03 04/14/18 10:10 04/14/18 10:12 Temperature Pulse Rate 94 H 101 H Respiratory Rate 18 14 26 H Blood Pressure 156/69 H 164/71 H Pulse Oximetry 99 96 97 04/14/18 10:37 04/14/18 10:40 04/14/18 11:14 Temperature 100.5 F H Pulse Rate 96 H 85 Respiratory Rate 16 14 Blood Pressure 135/89 151/70 H Pulse Oximetry 95 95 97 04/14/18 11:15 04/14/18 11:25 04/14/18 11:44 Temperature Pulse Rate 83 Respiratory Rate 14 14 Blood Pressure 93/55 L Pulse Oximetry 99 95 04/14/18 11:55 04/14/18 12:21 04/14/18 12:52 Temperature 98.7 F Pulse Rate 85 87 77 Respiratory Rate 18 14 16 Blood Pressure 129/53 L 146/66 H 90/52 L Pulse Oximetry 96 93 L 04/14/18 12:54 04/14/18 13:02 04/14/18 13:30 Temperature 99.5 F Pulse Rate 78 78 86 Respiratory Rate 16 27 H Blood Pressure 111/58 L 184/81 H Pulse Oximetry 04/14/18 13:40 04/14/18 14:01 04/14/18 14:42 Temperature Pulse Rate 75 Respiratory Rate 16 16 Blood Pressure Pulse Oximetry 100 04/14/18 14:55 04/14/18 15:00 04/14/18 15:09 Temperature Pulse Rate 78 78 Respiratory Rate 18 16 16 Blood Pressure 94/55 L Pulse Oximetry 90 L 96 04/14/18 15:15 04/14/18 15:30 04/14/18 15:45 Temperature Pulse Rate 79 79 79 Respiratory Rate 16 16 16 Blood Pressure 95/51 L 99/55 L 104/56 L Pulse Oximetry 94 L 95 95 04/14/18 16:00 04/14/18 16:15 04/14/18 16:30 Temperature 98.9 F Pulse Rate 80 82 82 Respiratory Rate 16 16 16 Blood Pressure 107/58 L 105/58 L 105/55 L Pulse Oximetry 95 95 95 04/14/18 16:45 04/14/18 17:00 04/14/18 17:15 Temperature Pulse Rate 84 86 87 Respiratory Rate 16 16 16 Blood Pressure 110/52 L 113/56 L 116/59 L Pulse Oximetry 95 94 L 93 L 04/14/18 17:30 04/14/18 18:00 04/14/18 19:00 Temperature Pulse Rate 88 88 88 Respiratory Rate 19 16 16 Blood Pressure 130/66 136/63 145/65 H Pulse Oximetry 93 L 93 L 95 04/14/18 19:54 04/14/18 19:55 04/14/18 20:00 Temperature 100.3 F H Pulse Rate 87 92 H Respiratory Rate 16 16 16 Blood Pressure Pulse Oximetry 95 95 04/14/18 20:01 04/14/18 21:00 04/14/18 22:00 Temperature Pulse Rate 91 H 95 H 90 Respiratory Rate 17 30 H 16 Blood Pressure 170/72 H 176/75 H 162/70 H Pulse Oximetry 94 L 95 96 04/14/18 23:00 04/14/18 23:02 04/14/18 23:10 Temperature Pulse Rate 93 H 95 H 99 H Respiratory Rate 20 23 42 H Blood Pressure 181/77 H 181/77 H 193/79 H Pulse Oximetry 95 95 95 04/14/18 23:35 04/15/18 00:00 04/15/18 00:01 Temperature 99.7 F H Pulse Rate 86 86 Respiratory Rate 16 16 16 Blood Pressure 120/59 L Pulse Oximetry 95 95 95 04/15/18 01:00 04/15/18 01:02 04/15/18 02:00 Temperature Pulse Rate 85 85 86 Respiratory Rate 18 16 16 Blood Pressure 190/83 H 172/61 H 138/63 Pulse Oximetry 96 95 96 04/15/18 03:00 04/15/18 03:19 04/15/18 03:55 Temperature Pulse Rate 86 86 Respiratory Rate 16 16 16 Blood Pressure 115/51 L Pulse Oximetry 96 95 04/15/18 04:00 04/15/18 05:00 04/15/18 07:46 Temperature 100.1 F H Pulse Rate 91 H 94 H Respiratory Rate 16 16 16 Blood Pressure 117/54 L 121/55 L Pulse Oximetry 95 96 95 Intake & Output 04/14/18 04/15/18 04/15/18 18:59 06:59 18:59 Intake Total 1750 / 1750 200 / 200 Output Total 3400 / 3400 200 / 200 Balance -1650 / -1650 0 / 0 Weight 69.2 kg 68.7 kg Intake: IV 1750 / 1750 200 / 200 Diprivan 1000 mg/100 ml Inj 1, 0 / 0 000 mg In 100 ml @ 0 mls/hr . ROUTE .K-MED ONE Rx#:[id number] Diprivan 1000 mg/100 ml Inj 1, 100 / 100 100 / 100 000 mg In 100 ml @ 5 MCG/KG/MIN 2.313 mls/hr IV.CONT TITRATE PRN Rx#:[id number] Flexbumin 25% Inj 100 ML @ 60 200 / 200 mls/hr IV.SIG WITH DIALYSIS PRN Rx#:[id number] Zosyn 2.25 GM Premix 50 ML @ 100 / 100 100 / 100 100 mls/hr IV.SIG Q6H [facility]O Rx#: [id number] NS Inj 1,000 ML @ Wide Open IV. 1000 / 1000 SIG BOLUS ONE Rx#:[id number] Vancomycin Inj 1,000 MG In NS 250 / 250 Inj 250 ML @ 250 mls/hr IV.SIG ONCE ONE Rx#:[id number] Flagyl 500 MG Inj 100 ML @ 100 100 / 100 mls/hr IV.SIG ONCE ONE Rx#: [id number] Oral 0 / 0 0 / 0 Output: Hemodialysis Amount 2500 / 2500 Urine Amount (Catheter) 0 / 0 0 / 0 Indwelling Urethral Catheter 0 / 0 0 / 0 Gastric Drainage 900 / 900 200 / 200 Oral Orogastric Tube 900 / 900 200 / 200 Other: # Bowel Movements 0 0 Weight On Admission 69.2 kg Result Diagrams: 04/14/18 10:20 04/15/18 04:45 Imaging: Chest X-Ray 04/14/18 09:44 CONCLUSION: Satisfactory position of supporting devices Interval placement of bilateral central venous catheters without evidence of pneumothorax. Cardiomegaly with out evidence of acute airspace disease or significant pulmonary edema. Head CT 04/14/18 09:44 CONCLUSION: 1. 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 2. No evidence of acute infarct, hemorrhage, mass or edema. 3. No significant change compared to 04/12/2017. . Abdomen/Pelvis CT 04/14/18 10:59 CONCLUSION: 1. Distended gallbladder with cholelithiasis and minimal gas in the fundus. There is no significant pericholecystic fluid or inflammation. 2. Simple left renal cyst. 3. Bibasilar airspace disease. Liver Ultrasound 04/14/18 12:44 CONCLUSION: 1. Gallbladder contains sludge and stones. However, no additional findings are present to definitively indicate acute cholecystitis. 2. Common bile duct is enlarged but contains no visible stone. Given the pain one could consider MRCP for further evaluation of the common duct stone as a cause for the duct dilatation in right upper quadrant pain. 3. Atrophic right kidney with changes suggesting chronic medical renal disease. There is a complex cystic lesion in the mid kidney and renal sinus measuring up to 3.5 cm. At some point ideally be further characterized with renal protocol MRI with and without intravenous contrast. This should be performed on an elective basis when condition permits. Objective Remarks: GENERAL: 72-year-old female currently orotracheally intubated SKIN: Warm and dry. Noted cool peripheral fingers left upper extremity HEAD: Atraumatic. Normocephalic. EYES: Pupils equal and round about 2 mm bilaterally and reactive. No scleral icterus. No injection or drainage. ENT: No nasal bleeding or discharge. Mucous membranes pink and moist. NECK: Trachea midline. No JVD. CARDIOVASCULAR: Regular rate and rhythm. S1, S2. No S4. Murmur RESPIRATORY: Few fine crackles appreciated bilaterally anteriorly posteriorly. No wheezing GASTROINTESTINAL: Abdomen soft, slight right upper quadrant-tender, nondistended. Hepatic and splenic margins not palpable. Hypoactive bowel sounds appreciated. MUSCULOSKELETAL: Extremities without clubbing, cyanosis, or edema. Left AV fistula positive thrill. NEUROLOGICAL: Arousable availability currently not following commands. Moving all 4 extremities spontaneously Assessment and Plan - Problem List (1) Acute metabolic encephalopathy Code(s): G93.41 - Metabolic encephalopathy Status: Acute (2) Acute hypoxemic respiratory failure Code(s): J96.01 - Acute respiratory failure with hypoxia Status: Acute (3) Septic shock Code(s): A41.9 - Sepsis, unspecified organism; R65.21 - Severe sepsis with septic shock Status: Resolved (4) Lactic acidosis Code(s): E87.2 - Acidosis Status: Acute (5) Non-ST elevated myocardial infarction (non-STEMI) Code(s): I21.4 - Non-ST elevation (NSTEMI) myocardial infarction Status: Acute (6) UTI (urinary tract infection) Code(s): N39.0 - Urinary tract infection, site not specified Status: Acute (7) Liver enzyme elevation Code(s): R74.8 - Abnormal levels of other serum enzymes Status: Acute (8) Emphysematous cholecystitis Code(s): K81.0 - Acute cholecystitis Status: Acute (9) Hyperkalemia Code(s): E87.5 - Hyperkalemia Status: Acute (10) ESRD (end stage renal disease) Code(s): N18.6 - End stage renal disease Status: Chronic (11) HTN (hypertension) Code(s): I10 - Essential (primary) hypertension Status: Chronic (12) Diabetes Code(s): E11.9 - Type 2 diabetes mellitus without complications Status: Chronic (13) GERD (gastroesophageal reflux disease) Code(s): K21.9 - Gastro-esophageal reflux disease without esophagitis Status: Chronic (14) Stroke Code(s): I63.9 - Cerebral infarction, unspecified Status: Chronic (15) TIA (transient ischemic attack) Code(s): G45.9 - Transient cerebral ischemic attack, unspecified Status: Chronic - Assessment and Plan Plan: NEURO/PSYCH: Acute metabolic encephalopathy 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 -Propofol and as needed fentanyl for sedation and ventilator synchrony -Encephalopathy seems to be metabolic secondary to severe sepsis -Daily sedation vacation once clinically stable -CT of the head shows old bilateral cerebellar strokes, and nothing acute RESP: Acute hypoxemic respiratory failure -Intubated in the emergency department for lack of airway protection and hypoxia -PRVC/AC, Ventilator bundle, DuoNeb every 6 hours scheduled and as needed -Sputum culture -SBT when appropriate CV: NSTEMI likely type II Hypotension Lactic acidosis History of hypertension -Normal saline IV fluids 500 ml bolus, 2d echo, cardiology consult, serial troponin -Start aspirin 81 mg daily, hold off beta-lenora secondary to hypotension -Cardiology Dr. Fermin consulted NSTEMI most likely type II from sepsis -Avoid IV heparin due to markedly elevated liver enzymes, possible need of surgical intervention -Hold all home antihypertensives (hold nifedipine, clonidine, hydralazine and Lasix) GI: Markedly elevated liver enzymes Probable emphysematous cholecystitis History of GERD -N.p.o., IV Protonix -CT abdomen pelvis shows small amount of air in the fundus of the gallbladder, this is concerning for emphysematous cholecystitis given clinical picture -Stat consult to general surgery and discussed with Dr. Cortes -He requested a stat ultrasound of the right upper quadrant -Patient might need surgical intervention/cholecystectomy Renal/: End-stage renal disease Hyperkalemia -Monitor renal function closely. -Dr. Gillette consulted for emergent hemodialysis -Treat hyperkalemia with bicarb, breathing treatment, insulin IV and D50 -Repeat CMP at 3 PM, will need dialysis today ID: Septic shock Probable emphysematous cholecystitis Possible UTI -Antibiotics with vancomycin and Zosyn -Infectious disease and general surgery consulted -Follow-up blood urine and sputum cultures -Stat ultrasound of the right upper quadrant ordered HEME: -Monitor CBC, coags -Leukocytosis with bandemia due to severe sepsis ENDO/FEN: Hyperkalemia Type 2 diabetes -Hyperkalemia treatment as above -Sliding scale insulin PROPH: -Bilateral lower extremity SCDs. Heparin sq/IV Protonix LINES: -Utilize peripheral IVs, left subclavian central line placed by ED physician in the emergency department Level 2 follow-up (6) UTI (urinary tract infection) Qualifiers: Urinary tract infection type: site unspecified Hematuria presence: without hematuria Qualified Code(s): N39.0 - Urinary tract infection, site not specified (11) HTN (hypertension) Qualifiers: Hypertension type: unspecified Qualified Code(s): I10 - Essential (primary) hypertension (12) Diabetes Qualifiers: Diabetes mellitus type: other specified (including YOVANI) Diabetes mellitus senior living insulin use: unspecified emt intermediate insulin use status Diabetes mellitus complication status: with unspecified complications Qualified Code(s) : E13.8 - Other specified diabetes mellitus with unspecified complications (13) GERD (gastroesophageal reflux disease) Qualifiers: Esophagitis presence: esophagitis presence not specified Qualified Code(s): K21.9 - Gastro-esophageal reflux disease without esophagitis (14) Stroke Qualifiers: CVA mechanism: unspecified Qualified Code(s): I63.9 - Cerebral infarction, unspecified
[2018-04-15 09:55] LABS: Baso % (Auto) 0.5 % (0.0-2.0); Eos # (Auto) 0.1 th/mm3 (0.0-0.4); Eos % (Auto) 0.7 % (0.0-4.0); Hematocrit 32.4 % (35.0-46.0); Hemoglobin 10.6 gm/dL (11.6-15.3); Lymph # (Auto) 0.7 th/mm3 (1.0-4.8); Lymph % (Auto) 8.1 % (9.0-44.0); Mean Corpuscular HGB Conc 32.6 % (32.0-36.0); Mean Corpuscular Hemoglobin 32.7 pg (27.0-34.0); Mean Corpuscular Volume 100.1 fL (80.0-100.0); Mean Platelet Volume 8.9 fL (7.0-11.0); Mono # (Auto) 0.3 th/mm3 (0.0-0.9); Neut # (Auto) 7.3 th/mm3 (1.8-7.7); Neut % (Auto) 86.7 % (16.0-70.0); Platelet Count 198 th/mm3 (150-450); Red Blood Count 3.23 mil/mm3 (4.00-5.30); Red Cell Distribution Width 19.9 % (11.6-17.2); White Blood Count 8.4 th/mm3 (4.0-11.0)
--- NOTE | 2018-04-15 09:59 | P.PNCA ---
Subjective Interval history: sedated Medications and Allergies Active Medications: Active Medications Acetaminophen (Tylenol) 650 mg PO UNSCH PRN PRN Reason: SEE LABEL COMMENTS Albuterol (Duoneb Neb (Princess)) 1 ampul NEB Q4HR NEB [facility] Albuterol (Albuterol Neb (Prn)) 2.5 mg NEB Q2HR NEB PRN PRN Reason: DYSPNEA Artificial Tears (Tears Naturale Opth Drops) 1 drop EACH EYE Q8H [facility] Aspirin (Aspirin Chew) 81 mg PO DAILY [facility] Last Admin: 04/15/18 08:14 Dose: 81 mg Chlorhexidine Gluconate (Chlorhexidine 2% Cloth) 3 pack TOPICAL DAILY@0400 [facility] Stop: 04/20/18 03:59 Last Admin: 04/15/18 04:36 Dose: 3 pack Chlorhexidine Gluconate (Chlorhexidine 2% Cloth) 3 pack TOPICAL DAILY@0400 PRN PRN Reason: Extra cloth needed Stop: 04/20/18 03:59 Chlorhexidine Gluconate (Peridex 0.12% Oral Kit) 15 ml OROPHARYNG BID@0800, 1999 [facility] Last Admin: 04/15/18 08:14 Dose: 15 ml Clonidine HCl (Catapres) 0.1 mg PO UNSCH PRN PRN Reason: SEE LABEL COMMENTS Dextrose (D50w Vial) 50 ml IV.PUSH UNSCH PRN PRN Reason: PER HYPOGLYCEMIA PROTOCOL Diphenhydramine HCl (Benadryl) 25 mg PO UNSCH PRN PRN Reason: SEE LABEL COMMENTS Fentanyl Citrate (Fentanyl Inj) 50 mcg IV.PUSH Q1H PRN PRN Reason: SEE LABEL COMMENTS Gelatin (Gelfoam 12 Mm/7 Mm Topical) 1 foam TOPICAL PRN PRN PRN Reason: help stop bleeding from site Gentamicin Sulfate (Gentamicin Inj) 20 mg OTHER WITH DIALYSIS PRN PRN Reason: Dwell Gentamycin Lock Last Admin: 04/14/18 15:20 Dose: 20 mg Glucagon (Glucagon Inj) 1 mg OTHER PRN PRN PRN Reason: for Hypoglycemia Protocol Heparin Sodium (Porcine) (Heparin Inj) 5,000 units SQ Q12HR [facility] Last Admin: 04/15/18 08:14 Dose: 5,000 units Heparin Sodium (Porcine) (Heparin Inj) 8,000 units OTHER WITH DIALYSIS PRN PRN Reason: for machine prime Heparin Sodium (Porcine) (Heparin Inj) 1,000 units OTHER WITH DIALYSIS PRN PRN Reason: Dwell Heparin to Fill Catheter Last Admin: 04/14/18 15:19 Dose: 1,000 units Propofol (Diprivan 1000 Mg/100 Ml Inj) 1,000 mg in 100 mls @ 2.313 mls/hr IV.CONT TITRATE PRN; Protocol PRN Reason: Per Protocol Last Admin: 04/15/18 03:25 Dose: 20 mcg/kg/min, 9.25 mls/hr Piperacillin/Tazobactam/Dextrose (Zosyn 2.25 Gm Premix) 50 mls @ 100 mls/hr IV.SIG Q6H [facility] Last Admin: 04/15/18 08:14 Dose: 100 mls/hr Norepinephrine Bitartrate 16 (mg/ Sodium Chloride) 250 mls @ 1.87 mls/hr IV.CONT TITRATE PRN; Protocol PRN Reason: See Protocol Sodium Chloride (Ns Inj) 1,000 mls @ 0 mls/hr OTHER .Q0M PRN PRN Reason: for prime and rinse back Sodium Chloride (Ns Inj) 1,000 mls @ 200 mls/hr OTHER .Q5H PRN PRN Reason: for dialyzer flush PRN Sodium Chloride (Ns Inj) 1,000 mls @ 0 mls/hr IV.CONT .Q0M PRN PRN Reason: hypotension / volume replace Albumin Human (Flexbumin 25% Inj) 100 mls @ 60 mls/hr IV.SIG WITH DIALYSIS PRN PRN Reason: hypotension / volume replace Last Infusion: 04/14/18 15:35 Dose: Infused Insulin Aspart (Novolog Insulin Correctional Sugar Inj) 0 unit SQ Q6HR [facility]; Protocol Last Admin: 04/15/18 07:01 Dose: Not Given Mannitol (Mannitol Inj) 12.5 gm IV.PUSH UNSCH PRN PRN Reason: hypotension / volume replace Miscellaneous Medication () 1 each OROPHARYNG 0000,0400,1200,1600 [facility] Last Admin: 04/15/18 04:36 Dose: 1 each Mupirocin (Bactroban 2% Nasal Oint) 1 applicatio EACH NARE BID [facility] Nitroglycerin (Nitrostat Sl) 0.4 mg SL Q5M PRN PRN Reason: CHEST PAIN Ondansetron HCl (Zofran Inj) 4 mg IV.PUSH UNSCH PRN PRN Reason: NAUSEA OR VOMITING Pantoprazole Sodium (Protonix Inj) 40 mg IV.PUSH Q12H [facility] Last Admin: 04/15/18 02:26 Dose: 40 mg Pharmacy Profile Note (Vancomycin Consult Pharmacy) 1 each OTHER UNSCH PRN PRN Reason: Pharmacy to dose Sodium Chloride (Ns Flush) 5 ml IV.FLUSH PRN PRN PRN Reason: flush each lumen during HD Terbutaline Sulfate (Brethine Inj) 1 mg SQ UNSCH PRN PRN Reason: For Extravasation Allergies Allergy/AdvReac Type Severity Reaction Status Date / Time No Known Allergies Allergy Verified 01/22/18 10:23 Home Medications Medication Instructions Recorded Confirmed Type clonidine HCl 0.1 mg PO DAILY PRN 01/22/18 01/22/18 History furosemide 80 mg PO DAILY 01/22/18 01/22/18 History hydralazine 50 mg PO QID 01/22/18 01/22/18 History hydrocodone-acetaminophen [Farwell] 1 tab PO Q4-6H PRN 01/22/18 01/22/18 History nifedipine 90 mg PO DAILY 01/22/18 01/22/18 History pantoprazole [Protonix] 40 mg PO DAILY 01/22/18 01/22/18 History Physical Exam Vital signs: Vital Signs 04/14/18 10:03 04/14/18 10:10 04/14/18 10:12 Temperature Pulse Rate 94 H 101 H Respiratory Rate 18 14 26 H Blood Pressure 156/69 H 164/71 H Pulse Oximetry 99 96 97 04/14/18 10:37 04/14/18 10:40 04/14/18 11:14 Temperature 100.5 F H Pulse Rate 96 H 85 Respiratory Rate 16 14 Blood Pressure 135/89 151/70 H Pulse Oximetry 95 95 97 04/14/18 11:15 04/14/18 11:25 04/14/18 11:44 Temperature Pulse Rate 83 Respiratory Rate 14 14 Blood Pressure 93/55 L Pulse Oximetry 99 95 04/14/18 11:55 04/14/18 12:21 04/14/18 12:52 Temperature 98.7 F Pulse Rate 85 87 77 Respiratory Rate 18 14 16 Blood Pressure 129/53 L 146/66 H 90/52 L Pulse Oximetry 96 93 L 04/14/18 12:54 12/08/18 13:02 04/14/18 13:30 Temperature 99.5 F Pulse Rate 78 78 86 Respiratory Rate 16 27 H Blood Pressure 111/58 L 184/81 H Pulse Oximetry 04/14/18 13:40 04/14/18 14:01 04/14/18 14:42 Temperature Pulse Rate 75 Respiratory Rate 16 16 Blood Pressure Pulse Oximetry 100 04/14/18 14:55 04/14/18 15:00 04/14/18 15:09 Temperature Pulse Rate 78 78 Respiratory Rate 18 16 16 Blood Pressure 94/55 L Pulse Oximetry 90 L 96 04/14/18 15:15 04/14/18 15:30 04/14/18 15:45 Temperature Pulse Rate 79 79 79 Respiratory Rate 16 16 16 Blood Pressure 95/51 L 99/55 L 104/56 L Pulse Oximetry 94 L 95 95 04/14/18 16:00 04/14/18 16:15 04/14/18 16:30 Temperature 98.9 F Pulse Rate 80 82 82 Respiratory Rate 16 16 16 Blood Pressure 107/58 L 105/58 L 105/55 L Pulse Oximetry 95 95 95 04/14/18 16:45 04/14/18 17:00 04/14/18 17:15 Temperature Pulse Rate 84 86 87 Respiratory Rate 16 16 16 Blood Pressure 110/52 L 113/56 L 116/59 L Pulse Oximetry 95 94 L 93 L 04/14/18 17:30 04/14/18 18:00 04/14/18 19:00 Temperature Pulse Rate 88 88 88 Respiratory Rate 19 16 16 Blood Pressure 130/66 136/63 145/65 H Pulse Oximetry 93 L 93 L 95 04/14/18 19:54 04/14/18 19:55 04/14/18 20:00 Temperature 100.3 F H Pulse Rate 87 92 H Respiratory Rate 16 16 16 Blood Pressure Pulse Oximetry 95 95 04/14/18 20:01 04/14/18 21:00 04/14/18 22:00 Temperature Pulse Rate 91 H 95 H 90 Respiratory Rate 17 30 H 16 Blood Pressure 170/72 H 176/75 H 162/70 H Pulse Oximetry 94 L 95 96 04/14/18 23:00 04/14/18 23:02 04/14/18 23:10 Temperature Pulse Rate 93 H 95 H 99 H Respiratory Rate 20 23 42 H Blood Pressure 181/77 H 181/77 H 193/79 H Pulse Oximetry 95 95 95 04/14/18 23:35 04/15/18 00:00 04/15/18 00:01 Temperature 99.7 F H Pulse Rate 86 86 Respiratory Rate 16 16 16 Blood Pressure 120/59 L Pulse Oximetry 95 95 95 04/15/18 01:00 04/15/18 01:02 04/15/18 02:00 Temperature Pulse Rate 85 85 86 Respiratory Rate 18 16 16 Blood Pressure 190/83 H 172/61 H 138/63 Pulse Oximetry 96 95 96 04/15/18 03:00 04/15/18 03:19 04/15/18 03:55 Temperature Pulse Rate 86 86 Respiratory Rate 16 16 16 Blood Pressure 115/51 L Pulse Oximetry 96 95 04/15/18 04:00 04/15/18 05:00 04/15/18 07:46 Temperature 100.1 F H Pulse Rate 91 H 94 H Respiratory Rate 16 16 16 Blood Pressure 117/54 L 121/55 L Pulse Oximetry 95 96 95 Intake & Output 04/14/18 04/15/18 04/15/18 18:59 06:59 18:59 Intake Total 1750 / 1750 200 / 200 Output Total 3400 / 3400 200 / 200 Balance -1650 / -1650 0 / 0 Weight 69.2 kg 68.7 kg Intake: IV 1750 / 1750 200 / 200 Diprivan 1000 mg/100 ml Inj 1, 0 / 0 000 mg In 100 ml @ 0 mls/hr . ROUTE .STK-MED ONE Rx#:[id number] Diprivan 1000 mg/100 ml Inj 1, 100 / 100 100 / 100 000 mg In 100 ml @ 5 MCG/KG/MIN 2.313 mls/hr IV.CONT TITRATE PRN Rx#:[id number] Flexbumin 25% Inj 100 ML @ 60 200 / 200 mls/hr IV.SIG WITH DIALYSIS PRN Rx#:[id number] Zosyn 2.25 GM Premix 50 ML @ 100 / 100 100 / 100 100 mls/hr IV.SIG Q6H [facility] Rx#: [id number] NS Inj 1,000 ML @ Wide Open IV. 1000 / 1000 SIG BOLUS ONE Rx#:[id number] Vancomycin Inj 1,000 MG In NS 250 / 250 Inj 250 ML @ 250 mls/hr IV.SIG ONCE ONE Rx#:[id number] Flagyl 500 MG Inj 100 ML @ 100 100 / 100 mls/hr IV.SIG ONCE ONE Rx#: [id number] Oral 0 / 0 0 / 0 Output: Hemodialysis Amount 2500 / 2500 Urine Amount (Catheter) 0 / 0 0 / 0 Indwelling Urethral Catheter 0 / 0 0 / 0 Gastric Drainage 900 / 900 200 / 200 Oral Orogastric Tube 900 / 900 200 / 200 Other: # Bowel Movements 0 0 Weight On Admission 69.2 kg Narrative: GENERAL: Intubated and sedated. HEAD: Normocephalic. Atraumatic. ENT: ETT in place. NECK: Trachea midline. no JVD CHEST: Ventilated. Clear anteriorly CARDIOVASCULAR: Regular rate and rhythm. 6 RADHA EXTREMITIES: No cyanosis or edema. Right hand warmer than left - Urinary Catheter Management Indwelling Urethral Catheter Cath placed during this visit: yes, but has since been removed by the nurse Reason for continuing: Hourly intake/output Insertion date: 04/14/18 Insertion time: 10:35 Removal date: 04/14/18 Removal time: 17:30 Results 04/14/18 10:20 04/15/18 04:45 Cardiac Enzymes 04/14/18 04/14/18 04/14/18 Range/Units 10:20 14:15 18:00 AST 1992 H 2182 H (15-37) U/L CK-MB (CK-2) 20.8 H 27.5 H 22.4 H (0.5-3.6) ng/mL Troponin I 5.21 H* 7.12 H* D 7.39 H* D (0.02-0.05) ng/mL 04/15/18 Range/Units 04:45 AST 1050 H (15-37) U/L CK-MB (CK-2) (0.5-3.6) ng/mL Troponin I (0.02-0.05) ng/mL Coagulation 04/14/18 Range/Units 10:20 PT 12.7 H (9.8-11.6) sec APTT 36.9 H (23.4-31.7) sec CBC 04/14/18 Range/Units 10:20 WBC 12.5 H (4.0-11.0) th/mm3 RBC 3.80 L (4.00-5.30) mil/mm3 Hgb 12.6 (11.6-15.3) gm/dL Hct 39.8 (35.0-46.0) % Plt Count 275 (150-450) th/mm3 Neut # (Auto) 11.3 H (1.8-7.7) th/mm3 Lymph # (Auto) 0.6 L (1.0-4.8) th/mm3 [place] # (Auto) 0.6 (0.0-0.9) th/mm3 Eos # (Auto) 0.0 (0.0-0.4) th/mm3 Baso # (Auto) 0.0 (0.0-0.2) th/mm3 Comprehensive Metabolic Panel 04/14/18 04/14/18 04/15/18 Range/Units 10:20 18:00 04:45 Sodium 141 143 143 (136-145) meq/L Potassium 6.0 H 3.6 D 4.3 (3.5-5.1) meq/L Chloride 100 104 103 (98-107) meq/L Carbon Dioxide 16.7 L 27.8 D 24.2 (21.0-32.0) meq/L BUN 69 H 38 H 54 H (7-18) mg/dL Creatinine 9.96 H 5.82 H 7.38 H (0.50-1.00) mg/dL Calcium 7.5 L 7.7 L 7.5 L (8.5-10.1) mg/dL AST 1992 H 2182 H 1050 H (15-37) U/L ALT 758 H 967 H 806 H (10-53) U/L Alkaline Phosphatase 69 47 45 (45-117) U/L Total Protein 9.0 H 8.6 H 8.0 D (6.4-8.2) g/dL Albumin 3.5 4.3 D 3.5 D (3.4-5.0) g/dL Intake and Output 04/14/18 04/15/18 04/15/18 22:59 06:59 14:59 Intake Total 650 / 650 150 / 150 Output Total 2650 / 2650 200 / 200 Balance -1999 / -2000 -50 / -50 Intake: IV 650 / 650 150 / 150 Diprivan 1000 mg/100 ml Inj 1, 0 / 0 000 mg In 100 ml @ 0 mls/hr . ROUTE .STK-MED ONE Rx#:[id number] Diprivan 1000 mg/100 ml Inj 1, 100 / 100 100 / 100 000 mg In 100 ml @ 5 MCG/KG/MIN 2.313 mls/hr IV.CONT TITRATE PRN Rx#:[id number] Flexbumin 25% Inj 100 ML @ 60 200 / 200 mls/hr IV.SIG WITH DIALYSIS PRN Rx#:[id number] Zosyn 2.25 GM Premix 50 ML @ 100 / 100 50 / 50 100 mls/hr IV.SIG Q6H [facility] Rx#: [id number] Vancomycin Inj 1,000 MG In NS 250 / 250 Inj 250 ML @ 250 mls/hr IV.SIG ONCE ONE Rx#:[id number] Oral 0 / 0 0 / 0 Output: Hemodialysis Amount 2500 / 2500 Urine Amount (Catheter) 0 / 0 0 / 0 Indwelling Urethral Catheter 0 / 0 0 / 0 Gastric Drainage 150 / 150 200 / 200 Oral Orogastric Tube 150 / 150 200 / 200 Other: # Bowel Movements 0 0 Weight 68.7 kg - Imaging and Cardiology Imaging: Impressions Chest X-Ray 04/14/18 09:44 CONCLUSION: Satisfactory position of supporting devices Interval placement of bilateral central venous catheters without evidence of pneumothorax. Cardiomegaly with out evidence of acute airspace disease or significant pulmonary edema. Head CT 04/14/18 09:44 CONCLUSION: 1. 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 2. No evidence of acute infarct, hemorrhage, mass or edema. 3. No significant change compared to 04/12/2017. . Abdomen/Pelvis CT 04/14/18 10:59 CONCLUSION: 1. Distended gallbladder with cholelithiasis and minimal gas in the fundus. There is no significant pericholecystic fluid or inflammation. 2. Simple left renal cyst. 3. Bibasilar airspace disease. Liver Ultrasound 04/14/18 12:44 CONCLUSION: 1. Gallbladder contains sludge and stones. However, no additional findings are present to definitively indicate acute cholecystitis. 2. Common bile duct is enlarged but contains no visible stone. Given the pain one could consider MRCP for further evaluation of the common duct stone as a cause for the duct dilatation in right upper quadrant pain. 3. Atrophic right kidney with changes suggesting chronic medical renal disease. There is a complex cystic lesion in the mid kidney and renal sinus measuring up to 3.5 cm. At some point ideally be further characterized with renal protocol MRI with and without intravenous contrast. This should be performed on an elective basis when condition permits. Assessment and Plan - Assessment (1) Non-ST elevated myocardial infarction (non-STEMI) Code(s): I21.4 - Non-ST elevation (NSTEMI) myocardial infarction Status: Acute (2) Sepsis Code(s): A41.9 - Sepsis, unspecified organism Status: Acute (3) Acute metabolic encephalopathy Code(s): G93.41 - Metabolic encephalopathy Status: Acute - Plan Repeat EKG and CPK in AM. Suspect NSTEMI is secondary to her sepsis. Niot sure why temperature difference in her hands. (2) Sepsis Qualifiers: Sepsis type: sepsis due to unspecified organism Qualified Code(s): A41.9 - Sepsis, unspecified organism
[2018-04-15 10:20] LABS: Magnesium 2.1 mg/dL (1.5-2.5); Phosphorus 6.4 mg/dL (2.5-4.9)
[2018-04-15] MEDS: Artificial Tears Opth Drops 15 ML Bottle EACH EYE SCH ×2 (10:25→18:05)
[2018-04-15 10:26] LABS: Lymphocytes 4 % (9-44); Metamyelocytes 1 % (0-1); Monocytes 2 % (0-8)
[2018-04-15 10:27] LABS: Dohle Bodies Present; Ovalocytes 1+; Platelet Estimate Normal (Normal); Platelet Morphology Normal (Normal)
--- NOTE | 2018-04-15 10:35 | US ---
EXAM DATE: 04/15/2018 10:12 AM EST AGE/SEX: 72 years / Female INDICATIONS: Left arm swelling. CLINICAL DATA: This is the patient's initial encounter. Patient reports that signs and symptoms have been present for 1 day and indicates a pain score of Nonresponsive. MEDICAL/SURGICAL HISTORY: Gastroesophageal reflux disease. Hypertension. Diabetes. End stage r enal disease. Stroke. TIA. . AV fistula. COMPARISON: No prior exams available for comparison. FINDINGS: The vessels are compressible and augmentation response is documented. No filling defects a re seen. The flow is phasic with respiration. Other: None. CONCLUSION: No evidence of DVT. Electronically signed by: Mike Viera MD 04/15/2018 10:34 AM EST
[2018-04-15 10:41] LABS: Troponin I 4.35 ng/mL (0.02-0.05)
--- NOTE | 2018-04-15 11:13 | P.PNNP ---
Subjective Interval history: Patient remains on ventilator Physical Exam Vital signs: Vital Signs 04/14/18 11:14 04/14/18 11:15 04/14/18 11:25 Temperature Pulse Rate 85 Respiratory Rate 14 14 Blood Pressure 151/70 H Pulse Oximetry 97 99 04/14/18 11:44 04/14/18 11:55 04/14/18 12:21 Temperature 98.7 F Pulse Rate 83 85 87 Respiratory Rate 14 18 14 Blood Pressure 93/55 L 129/53 L 146/66 H Pulse Oximetry 95 96 04/14/18 12:52 04/14/18 12:54 04/14/18 13:02 Temperature Pulse Rate 77 78 78 Respiratory Rate 16 16 Blood Pressure 90/52 L 111/58 L Pulse Oximetry 93 L 04/14/18 13:30 04/14/18 13:40 04/14/18 14:01 Temperature 99.5 F Pulse Rate 86 Respiratory Rate 27 H 16 Blood Pressure 184/81 H Pulse Oximetry 100 04/14/18 14:42 04/14/18 14:55 04/14/18 15:00 Temperature Pulse Rate 75 78 78 Respiratory Rate 16 18 16 Blood Pressure 94/55 L Pulse Oximetry 90 L 04/14/18 15:09 04/14/18 15:15 04/14/18 15:30 Temperature Pulse Rate 79 79 Respiratory Rate 16 16 16 Blood Pressure 95/51 L 99/55 L Pulse Oximetry 96 94 L 95 04/14/18 15:45 04/14/18 16:00 04/14/18 16:15 Temperature 98.9 F Pulse Rate 79 80 82 Respiratory Rate 16 16 16 Blood Pressure 104/56 L 107/58 L 105/58 L Pulse Oximetry 95 95 95 04/14/18 16:30 04/14/18 16:45 04/14/18 17:00 Temperature Pulse Rate 82 84 86 Respiratory Rate 16 16 16 Blood Pressure 105/55 L 110/52 L 113/56 L Pulse Oximetry 95 95 94 L 04/14/18 17:15 04/14/18 17:30 04/14/18 18:00 Temperature Pulse Rate 87 88 88 Respiratory Rate 16 19 16 Blood Pressure 116/59 L 130/66 136/63 Pulse Oximetry 93 L 93 L 93 L 04/14/18 19:00 04/14/18 19:54 12/08/18 19:55 Temperature Pulse Rate 88 87 Respiratory Rate 16 16 16 Blood Pressure 145/65 H Pulse Oximetry 95 95 04/14/18 20:00 04/14/18 20:01 04/14/18 21:00 Temperature 100.3 F H Pulse Rate 92 H 91 H 95 H Respiratory Rate 16 17 30 H Blood Pressure 170/72 H 176/75 H Pulse Oximetry 95 94 L 95 04/14/18 22:00 04/14/18 23:00 04/14/18 23:02 Temperature Pulse Rate 90 93 H 95 H Respiratory Rate 16 20 23 Blood Pressure 162/70 H 181/77 H 181/77 H Pulse Oximetry 96 95 95 04/14/18 23:10 04/14/18 23:35 04/15/18 00:00 Temperature 99.7 F H Pulse Rate 99 H 86 Respiratory Rate 42 H 16 16 Blood Pressure 193/79 H Pulse Oximetry 95 95 95 04/15/18 00:01 04/15/18 01:00 04/15/18 01:02 Temperature Pulse Rate 86 85 85 Respiratory Rate 16 18 16 Blood Pressure 120/59 L 190/83 H 172/61 H Pulse Oximetry 95 96 95 04/15/18 02:00 04/15/18 03:00 04/15/18 03:19 Temperature Pulse Rate 86 86 86 Respiratory Rate 16 16 16 Blood Pressure 138/63 115/51 L Pulse Oximetry 96 96 04/15/18 03:55 04/15/18 04:00 04/15/18 05:00 Temperature 100.1 F H Pulse Rate 91 H 94 H Respiratory Rate 16 16 16 Blood Pressure 117/54 L 121/55 L Pulse Oximetry 95 95 96 04/15/18 07:46 04/15/18 08:00 04/15/18 09:00 Temperature 99.9 F H Pulse Rate 91 H 92 H Respiratory Rate 16 16 Blood Pressure 156/67 H Pulse Oximetry 95 94 L 04/15/18 09:57 Temperature Pulse Rate 87 Respiratory Rate 16 Blood Pressure Pulse Oximetry 96 Intake & Output 04/14/18 04/15/18 04/15/18 18:59 06:59 18:59 Intake Total 1750 / 1750 200 / 200 150 / 150 Output Total 3400 / 3400 200 / 200 Balance -1650 / -1650 0 / 0 150 / 150 Weight 69.2 kg 68.7 kg Intake: IV 1750 / 1750 200 / 200 150 / 150 Diprivan 1000 mg/100 ml Inj 1, 0 / 0 000 mg In 100 ml @ 0 mls/hr . ROUTE .STK-MED ONE Rx#:[id number] Diprivan 1000 mg/100 ml Inj 1, 100 / 100 100 / 100 100 / 100 000 mg In 100 ml @ 5 MCG/KG/MIN 2.313 mls/hr IV.CONT TITRATE PRN Rx#:[id number] Flexbumin 25% Inj 100 ML @ 60 200 / 200 mls/hr IV.SIG WITH DIALYSIS PRN Rx#:[id number] Zosyn 2.25 GM Premix 50 ML @ 100 / 100 100 / 100 50 / 50 100 mls/hr IV.SIG Q6H [facility] Rx#: [id number] NS Inj 1,000 ML @ Wide Open IV. 1000 / 1000 SIG BOLUS ONE Rx#:[id number] Vancomycin Inj 1,000 MG In NS 250 / 250 Inj 250 ML @ 250 mls/hr IV.SIG ONCE ONE Rx#:[id number] Flagyl 500 MG Inj 100 ML @ 100 100 / 100 mls/hr IV.SIG ONCE ONE Rx#: [id number] Oral 0 / 0 0 / 0 Output: Hemodialysis Amount 2500 / 2500 Urine Amount (Catheter) 0 / 0 0 / 0 Indwelling Urethral Catheter 0 / 0 0 / 0 Gastric Drainage 900 / 900 200 / 200 Oral Orogastric Tube 900 / 900 200 / 200 Other: # Bowel Movements 0 0 Weight On Admission 69.2 kg Narrative: GENERAL: Well-nourished, well-developed intubated patient. SKIN: Warm and dry. HEAD: Normocephalic. EYES: No scleral icterus. No injection or drainage. NECK: Supple, trachea midline. No JVD or lymphadenopathy. CARDIOVASCULAR: Regular rate and rhythm without murmurs, gallops, or rubs. RESPIRATORY: Breath sounds equal bilaterally. No accessory muscle use. GASTROINTESTINAL: Abdomen soft, nondistended. EXTREMITIES: Mild edema. Fistula left arm, left hand is cold NEUROLOGICAL: Unresponsive - Urinary Catheter Management Indwelling Urethral Catheter Cath placed during this visit: yes, but has since been removed by the nurse Reason for continuing: Hourly intake/output Insertion date: 04/14/18 Insertion time: 10:35 Removal date: 04/14/18 Removal time: 17:30 Assessment and Plan - Assessment (1) ESRD (end stage renal disease) Code(s): N18.6 - End stage renal disease Status: Chronic Plan: Patient had dialysis yesterday 2.5 liter ultrafiltrate as tolerated on 1K bath continue supportive care Monday, and Saturdays Monitor progress Hypokalemia resolved Gallbladder distention Left hand cold possibly has steal syndrome, due to L arm AVF keep it warm, follow Doppler ultrasound, may need vascular consult Follows with Dr. Michel (2) Hyperkalemia Code(s): E87.5 - Hyperkalemia Status: Acute Plan: Patient hyperkalemia resolved potassium 4.3 (3) Acute metabolic encephalopathy Code(s): G93.41 - Metabolic encephalopathy Status: Acute (4) Acute hypoxemic respiratory failure Code(s): J96.01 - Acute respiratory failure with hypoxia Status: Acute Plan: On ventilator (5) Septic shock Code(s): A41.9 - Sepsis, unspecified organism; R65.21 - Severe sepsis with septic shock Status: Resolved Plan: On broad-spectrum antibiotic (6) Emphysematous cholecystitis Code(s): K81.0 - Acute cholecystitis Status: Acute Plan: General surgery following
--- NOTE | 2018-04-15 11:49 | P.PNID ---
Subjective Remarks: is a 72 y/o WF with PMHx of CKD s/p attempt at PD catheter placement due to non compliance, also Left Brachiocephalic AV fistula on 2017 by . Patient was reportedly found with decreased level of consciousness. Room mates do not know much about her medical history and reportedly seen her normal the night prior. Per records EMS gave her Narcan and there was improvement noted. No family nos on chart and old records could not be assessed. Patients past medical records from prior visits could not be accessed by me but patient has CKD and prior Bradycardia on prior admit. Also patient has a history of stroke diabetes hypertension GERD. On admission she had leukocytosis of 12,000 with a left shift. Metabolic acidosis on ABG. Lactic acid 6.Troponins elevated. Cr at 9.6. Normal lipase, LFTs in thousands. CT with air concerning for emphysematous cholecystitis. At the time of my evaluation patient is in IMC, not on pressors, has received fluid bolus amount not documented per RN. She is currently intubated, not sedated, opens eyes, does not follow commands for me. No obvious focal deficit. ID consulted for evaluation and Mment of Severe Sepsis, possible acute cholecystitis. Overnight event reviewed Fevers 101 F WBC normalized LUE bluish discoloration of fingers. Cool clammy fingers. Opens eyes,not following commands. No rash No diarrhea Antibiotics: zosyn IV Vanco IV Lines: Line sites ok Past Medical History: reviewed Allergies/Adverse Reactions: Allergies No Known Allergies Allergy (Verified 01/22/18 10:23) Objective Vital Signs 04/14/18 11:44 04/14/18 11:55 04/14/18 12:21 Temperature 98.7 F Pulse Rate 83 85 87 Respiratory Rate 14 18 14 Blood Pressure 93/55 L 129/53 L 146/66 H Pulse Oximetry 95 96 04/14/18 12:52 04/14/18 12:54 04/14/18 13:02 Temperature Pulse Rate 77 78 78 Respiratory Rate 16 16 Blood Pressure 90/52 L 111/58 L Pulse Oximetry 93 L 04/14/18 13:30 04/14/18 13:40 04/14/18 14:01 Temperature 99.5 F Pulse Rate 86 Respiratory Rate 27 H 16 Blood Pressure 184/81 H Pulse Oximetry 100 04/14/18 14:42 04/14/18 14:55 04/14/18 15:00 Temperature Pulse Rate 75 78 78 Respiratory Rate 16 18 16 Blood Pressure 94/55 L Pulse Oximetry 90 L 04/14/18 15:09 04/14/18 15:15 04/14/18 15:30 Temperature Pulse Rate 79 79 Respiratory Rate 16 16 16 Blood Pressure 95/51 L 99/55 L Pulse Oximetry 96 94 L 95 04/14/18 15:45 04/14/18 16:00 04/14/18 16:15 Temperature 98.9 F Pulse Rate 79 80 82 Respiratory Rate 16 16 16 Blood Pressure 104/56 L 107/58 L 105/58 L Pulse Oximetry 95 95 95 04/14/18 16:30 04/14/18 16:45 04/14/18 17:00 Temperature Pulse Rate 82 84 86 Respiratory Rate 16 16 16 Blood Pressure 105/55 L 110/52 L 113/56 L Pulse Oximetry 95 95 94 L 04/14/18 17:15 04/14/18 17:30 04/14/18 18:00 Temperature Pulse Rate 87 88 88 Respiratory Rate 16 19 16 Blood Pressure 116/59 L 130/66 136/63 Pulse Oximetry 93 L 93 L 93 L 04/14/18 19:00 04/14/18 19:54 04/14/18 19:55 Temperature Pulse Rate 88 87 Respiratory Rate 16 16 16 Blood Pressure 145/65 H Pulse Oximetry 95 95 04/14/18 20:00 04/14/18 20:01 04/14/18 21:00 Temperature 100.3 F H Pulse Rate 92 H 91 H 95 H Respiratory Rate 16 17 30 H Blood Pressure 170/72 H 176/75 H Pulse Oximetry 95 94 L 95 04/14/18 22:00 04/14/18 23:00 04/14/18 23:02 Temperature Pulse Rate 90 93 H 95 H Respiratory Rate 16 20 23 Blood Pressure 162/70 H 181/77 H 181/77 H Pulse Oximetry 96 95 95 04/14/18 23:10 04/14/18 23:35 04/15/18 00:00 Temperature 99.7 F H Pulse Rate 99 H 86 Respiratory Rate 42 H 16 16 Blood Pressure 193/79 H Pulse Oximetry 95 95 95 04/15/18 00:01 04/15/18 01:00 04/15/18 01:02 Temperature Pulse Rate 86 85 85 Respiratory Rate 16 18 16 Blood Pressure 120/59 L 190/83 H 172/61 H Pulse Oximetry 95 96 95 04/15/18 02:00 04/15/18 03:00 04/15/18 03:19 Temperature Pulse Rate 86 86 86 Respiratory Rate 16 16 16 Blood Pressure 138/63 115/51 L Pulse Oximetry 96 96 04/15/18 03:55 04/15/18 04:00 04/15/18 05:00 Temperature 100.1 F H Pulse Rate 91 H 94 H Respiratory Rate 16 16 16 Blood Pressure 117/54 L 121/55 L Pulse Oximetry 95 95 96 04/15/18 07:46 04/15/18 08:00 04/15/18 09:00 Temperature 99.9 F H Pulse Rate 91 H 92 H Respiratory Rate 16 16 Blood Pressure 156/67 H Pulse Oximetry 95 94 L 04/15/18 09:57 Temperature Pulse Rate 87 Respiratory Rate 16 Blood Pressure Pulse Oximetry 96 Intake & Output 04/14/18 04/15/18 04/15/18 18:59 06:59 18:59 Intake Total 1750 / 1750 200 / 200 150 / 150 Output Total 3400 / 3400 200 / 200 Balance -1650 / -1650 0 / 0 150 / 150 Weight 69.2 kg 68.7 kg Intake: IV 1750 / 1750 200 / 200 150 / 150 Diprivan 1000 mg/100 ml Inj 1, 0 / 0 000 mg In 100 ml @ 0 mls/hr . ROUTE .STK-MED ONE Rx#:[id number] Diprivan 1000 mg/100 ml Inj 1, 100 / 100 100 / 100 100 / 100 000 mg In 100 ml @ 5 MCG/KG/MIN 2.313 mls/hr IV.CONT TITRATE PRN Rx#:[id number] Flexbumin 25% Inj 100 ML @ 60 200 / 200 mls/hr IV.SIG WITH DIALYSIS PRN Rx#:[id number] Zosyn 2.25 GM Premix 50 ML @ 100 / 100 100 / 100 50 / 50 100 mls/hr IV.SIG Q6H CIRILO Rx#: [id number] NS Inj 1,000 ML @ Wide Open IV. 1000 / 1000 SIG BOLUS ONE Rx#:[id number] Vancomycin Inj 1,000 MG In NS 250 / 250 Inj 250 ML @ 250 mls/hr IV.SIG ONCE ONE Rx#:[id number] Flagyl 500 MG Inj 100 ML @ 100 100 / 100 mls/hr IV.SIG ONCE ONE Rx#: [id number] Oral 0 / 0 0 / 0 Output: Hemodialysis Amount 2500 / 2500 Urine Amount (Catheter) 0 / 0 0 / 0 Indwelling Urethral Catheter 0 / 0 0 / 0 Gastric Drainage 900 / 900 200 / 200 Oral Orogastric Tube 900 / 900 200 / 200 Other: # Bowel Movements 0 0 Weight On Admission 69.2 kg 04/15/18 11:30 Blood - Line Aerobic Blood Culture - Pending 04/15/18 11:30 Blood - Line Anaerobic Blood Culture - Pending 04/14/18 10:20 Blood - Peripheral Aerobic Blood Culture - Preliminary No growth in 1 day 04/14/18 10:20 Blood - Peripheral Anaerobic Blood Culture - Preliminary No growth in 1 day 04/14/18 10:25 Blood - Peripheral Aerobic Blood Culture - Preliminary No growth in 1 day 04/14/18 10:25 Blood - Peripheral Anaerobic Blood Culture - Preliminary No growth in 1 day 04/14/18 15:15 Sputum - Endotracheal Gram Stain - Pending 04/14/18 15:15 Sputum - Endotracheal Sputum Culture - Pending 04/14/18 10:35 Clean Catch Urine Urine Culture - Pending Lab - Hematology Results 04/14/18 04/15/18 10:20 09:40 WBC 12.5 H 8.4 RBC 3.80 L 3.23 L Hgb 12.6 10.6 L D Hct 39.8 32.4 L MCV 104.7 H 100.1 H D MCH 33.2 32.7 MCHC 31.7 L 32.6 RDW 20.3 H 19.9 H Plt Count 275 198 MPV 8.9 8.9 Prelim Diff (Auto) Slide review pending Slide review pending Neut % (Auto) 90.5 H 86.7 H Lymph % (Auto) 4.6 L 8.1 L [place] % (Auto) 4.8 4.0 Eos % (Auto) 0.0 0.7 Baso % (Auto) 0.1 0.5 Neut # (Auto) 11.3 H 7.3 Lymph # (Auto) 0.6 L 0.7 L [place] # (Auto) 0.6 0.3 Eos # (Auto) 0.0 0.1 Baso # (Auto) 0.0 0.0 WBC Differential Manual diff final Manual diff final Seg Neuts % (Manual) 64 77 H Band Neuts % (Manual) 29 H 16 H Lymphocytes % (Manual) 6 L 4 L Monocytes % (Manual) 1 2 Metamyelocytes % (Man) 1 Abs Neuts (Manual) 11.6 H 7.9 H Differential Comment . . Toxic Vacuolation Present H Dohle Bodies Present H Platelet Estimate Normal Normal Platelet Morphology Normal Normal Ovalocytes 1+ H 1+ H Lab - Chemistry Results 04/14/18 04/14/18 04/14/18 10:20 10:20 14:15 Sodium 141 Potassium 6.0 H Chloride 100 Carbon Dioxide 16.7 L Anion Gap 24 H BUN 69 H Creatinine 9.96 H Estimated GFR 4 L POC Glucose Random Glucose 170 H Lactic Acid 6.0 H* Calcium 7.5 L Phosphorus Magnesium 2.2 Total Bilirubin 0.6 AST 1992 H ALT 758 H Alkaline Phosphatase 69 Total Creatine Kinase 475 H 906 H CK-MB (CK-2) 20.8 H 27.5 H CK-MB (CK-2) % 4.4 H* 3.0 Troponin I 5.21 H* 7.12 H* D Total Protein 9.0 H Albumin 3.5 Lipase 176 04/14/18 04/14/18 04/14/18 14:15 18:00 18:27 Sodium 143 Potassium 3.6 D Chloride 104 Carbon Dioxide 27.8 D Anion Gap 11 BUN 38 H Creatinine 5.82 H Estimated GFR 7 L POC Glucose 92 Random Glucose 88 Lactic Acid 4.3 H* Calcium 7.7 L Phosphorus Magnesium Total Bilirubin 0.6 AST 2182 H ALT 967 H Alkaline Phosphatase 47 Total Creatine Kinase 685 H CK-MB (CK-2) 22.4 H CK-MB (CK-2) % 3.3 Troponin I 7.39 H* D Total Protein 8.6 H Albumin 4.3 D Lipase 04/15/18 04/15/18 04/15/18 00:02 04:45 05:38 Sodium 143 Potassium 4.3 Chloride 103 Carbon Dioxide 24.2 Anion Gap 16 H BUN 54 H Creatinine 7.38 H Estimated GFR 5 L POC Glucose 126 H 134 H Random Glucose 133 H Lactic Acid Calcium 7.5 L Phosphorus Magnesium Total Bilirubin 0.7 AST 1050 H ALT 806 H Alkaline Phosphatase 45 Total Creatine Kinase CK-MB (CK-2) CK-MB (CK-2) % Troponin I Total Protein 8.0 D Albumin 3.5 D Lipase 04/15/18 04/15/18 04/15/18 09:40 09:40 11:31 Sodium Potassium Chloride Carbon Dioxide Anion Gap BUN Creatinine Estimated GFR POC Glucose 115 H Random Glucose Lactic Acid 2.2 H Calcium Phosphorus 6.4 H Magnesium 2.1 Total Bilirubin AST ALT Alkaline Phosphatase Total Creatine Kinase CK-MB (CK-2) CK-MB (CK-2) % Troponin I 4.35 H* D Total Protein Albumin Lipase 47 L Imaging: ITS Impressions Chest X-Ray 04/14/18 09:44 CONCLUSION: Satisfactory position of supporting devices Interval placement of bilateral central venous catheters without evidence of pneumothorax. Cardiomegaly with out evidence of acute airspace disease or significant pulmonary edema. Head CT 04/14/18 09:44 CONCLUSION: 1. 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 2. No evidence of acute infarct, hemorrhage, mass or edema. 3. No significant change compared to 04/12/2017. . Abdomen/Pelvis CT 04/14/18 10:59 CONCLUSION: 1. Distended gallbladder with cholelithiasis and minimal gas in the fundus. There is no significant pericholecystic fluid or inflammation. 2. Simple left renal cyst. 3. Bibasilar airspace disease. Liver Ultrasound 04/14/18 12:44 CONCLUSION: 1. Gallbladder contains sludge and stones. However, no additional findings are present to definitively indicate acute cholecystitis. 2. Common bile duct is enlarged but contains no visible stone. Given the pain one could consider MRCP for further evaluation of the common duct stone as a cause for the duct dilatation in right upper quadrant pain. 3. Atrophic right kidney with changes suggesting chronic medical renal disease. There is a complex cystic lesion in the mid kidney and renal sinus measuring up to 3.5 cm. At some point ideally be further characterized with renal protocol MRI with and without intravenous contrast. This should be performed on an elective basis when condition permits. Venous Doppler Study 04/15/18 00:00 CONCLUSION: No evidence of DVT. Physical Exam: GENERAL: Sedated, on the vent, NAD SKIN: Cool and dry, no generalized rash HEAD: Atraumatic. Normocephalic. No temporal or scalp tenderness. EYES: Pupils equal round and reactive. Scleral icterus. No injection or drainage. No petechia ENT: Orally intubated NECK: Trachea midline. Supple, nontender, no meningeal signs. CARDIOVASCULAR: HS audible. RESPIRATORY: Air entry equal bilaterally. Clear to auscultation bilaterally. GASTROINTESTINAL: Abdomen soft, ? RUQ tenderness. Scars on abdomen ? PD cath insertion attempts related. MUSCULOSKELETAL: Lower Extremities with no evidence of infection. Left AV fistula site ok. Left fingers bluish hue, cold clammy. NEUROLOGICAL: Sedated Psych could not be assessed IV line sites ok. HD cath and CL site ok. Assessment and Plan - Plan severe Sepsis Probable acute emphysematous cholecystitis (CT findings and RUQ tenderness) CKD Attempted PD catheter placement in 01/2018. AV fistula LUE placed on 01/22/2018. Acute metabolic encephalopathy: sepsis, metabolic. Recs: Continue Zosyn IV Continue Vanco IV for now (target sepsis 15-20) Blood culture from line and HD cath. Await GI input. RUQ tenderness and abnormal LFTs concern GI source as cause for sepsis. satinder [employer] Await Doppler report Await 2D ECHO. Photographer Finish reports no obvious vegetation. If Doppler abnormal or LUE continues to be cool and discoloration persists consider vascular consult. If deteriorates clinically consider adding Micafungin IV Follow cultures follow clinical course. satinder RN No family nos on file.
--- NOTE | 2018-04-15 13:52 | P.CONGI ---
History of Present Illness Consult date: 04/15/18 Consult reason: Elevated LFTs, enlarged common bile duct Chief complaint: Sepsis unk source, nonstemi History of Present Illness: This is a 72-year-old female who entered the hospital on 04/14/2018 after being found unresponsive per her roommate. According to the record and staff patient was intubated in the emergency room setting and received multiple lab work and aggressive therapy there was a CAT scan that showed distended gallbladder with cholelithiasis and liver ultrasound that showed positive cholelithiasis and gallbladder sludge and a small amount of air in the fundus of the gallbladder. Lab work was reviewed which showed initial hemoglobin 12.6 now decreased to 10.6 , initial WBC count 12.5 now normalized to 8.4, PT/INR 1.3, lipase 47, bilirubin 0.7, AST 1050, ALT 8:06 AM positive troponin IV 0.35. Gastroenterology was consulted to assist in her plan of care but it is noted after examination of the patient and per the record patient is acutely critically ill in the intensive care setting. There is currently no family present but according to staff patient has a daughter and a son. <Dania Barkley - Last Filed: 04/15/18 15:55> Review of Systems All other systems reviewed negative except as stated in HPI <Dania Barkley - Last Filed: 04/15/18 15:55> [facility] - Medical History Medical History: Medical History (Last Reviewed 04/15/18 @ 13:15 by Gustavo Wallace) AV fistula Diabetes Dialysis catheter clot or failure End stage renal disease GERD (gastroesophageal reflux disease) Hypertension Peritoneal dialysis catheter in place Stroke TIA (transient ischemic attack) - Family History Family History: Family History (Last Updated 04/14/18 @ 16:27 by Sheila Gillette MD) Other Family history unobtainable <Naila Berg - Last Filed: 04/15/18 15:25> - History History 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 - Medical History Medical History: Medical History (Last Reviewed 04/15/18 @ 13:15 by Gustavo Wallace) AV fistula Diabetes Dialysis catheter clot or failure End stage renal disease GERD (gastroesophageal reflux disease) Hypertension Peritoneal dialysis catheter in place Stroke TIA (transient ischemic attack) - Family History Family History: Family History (Last Updated 04/14/18 @ 16:27 by Sheila Gillette MD) Other Family history unobtainable - Tobacco History Second Hand Smoke Exposure: No Smoking Status: Unknown if ever smoked - Alcohol History How Often Do You Have a Drink Containing Alcohol: Unable to Obtain - Substance Use History Substance History: Unable to Obtain - Travel History Recent Travel in the [place] Within the Last 8 Weeks: No Recent Travel Out of the Country Within the Last 8 Weeks: No - Immunization History Tetanus Immunization: Unsure Hx Influenza Vaccine This Season: Unable to Assess <Dania Barkley - Last Filed: 04/15/18 15:55> Medications and Allergies Active Medications: Active Medications Acetaminophen (Tylenol) 650 mg PO UNSCH PRN PRN Reason: SEE LABEL COMMENTS Albuterol (Duoneb Neb (Princess)) 1 ampul NEB Q4HR NEB COUNT INCLUDES THE [facility] Last Admin: 04/15/18 15:13 Dose: 1 ampul Albuterol (Albuterol Neb (Prn)) 2.5 mg NEB Q2HR NEB PRN PRN Reason: DYSPNEA Artificial Tears (Tears Naturale Opth Drops) 1 drop EACH EYE Q8H COUNT INCLUDES THE [facility] Last Admin: 04/15/18 10:25 Dose: 1 drop Aspirin (Aspirin Chew) 81 mg PO DAILY COUNT INCLUDES THE [facility] Last Admin: 04/15/18 08:14 Dose: 81 mg Chlorhexidine Gluconate (Chlorhexidine 2% Cloth) 3 pack TOPICAL DAILY@0400 COUNT INCLUDES THE [facility] Stop: 04/20/18 03:59 Last Admin: 04/15/18 04:36 Dose: 3 pack Chlorhexidine Gluconate (Chlorhexidine 2% Cloth) 3 pack TOPICAL DAILY@0400 PRN PRN Reason: Extra cloth needed Stop: 04/20/18 03:59 Chlorhexidine Gluconate (Peridex 0.12% Oral Kit) 15 ml OROPHARYNG BID@0800, 2000 COUNT INCLUDES THE [facility] Last Admin: 04/15/18 08:14 Dose: 15 ml Clonidine HCl (Catapres) 0.1 mg PO UNSCH PRN PRN Reason: SEE LABEL COMMENTS Dextrose (D50w Vial) 50 ml IV.PUSH UNSCH PRN PRN Reason: PER HYPOGLYCEMIA PROTOCOL Diphenhydramine HCl (Benadryl) 25 mg PO UNSCH PRN PRN Reason: SEE LABEL COMMENTS Gelatin (Gelfoam 12 Mm/7 Mm Topical) 1 foam TOPICAL PRN PRN PRN Reason: help stop bleeding from site Gentamicin Sulfate (Gentamicin Inj) 20 mg OTHER WITH DIALYSIS PRN PRN Reason: Dwell Gentamycin Lock Last Admin: 04/14/18 15:20 Dose: 20 mg Glucagon (Glucagon Inj) 1 mg OTHER PRN PRN PRN Reason: for Hypoglycemia Protocol Heparin Sodium (Porcine) (Heparin Inj) 5,000 units SQ Q12HR [facility]INCESS Last Admin: 04/15/18 08:14 Dose: 5,000 units Heparin Sodium (Porcine) (Heparin Inj) 8,000 units OTHER WITH DIALYSIS PRN PRN Reason: for machine prime Heparin Sodium (Porcine) (Heparin Inj) 1,000 units OTHER WITH DIALYSIS PRN PRN Reason: Dwell Heparin to Fill Catheter Last Admin: 04/14/18 15:19 Dose: 1,000 units Propofol (Diprivan 1000 Mg/100 Ml Inj) 1,000 mg in 100 mls @ 2.313 mls/hr IV.CONT TITRATE PRN; Protocol PRN Reason: Per Protocol Last Admin: 04/15/18 10:06 Dose: 20 mcg/kg/min, 9.25 mls/hr Piperacillin/Tazobactam/Dextrose (Zosyn 2.25 Gm Premix) 50 mls @ 100 mls/hr IV.SIG Q6H [facility]INCESS Last Admin: 04/15/18 14:46 Dose: 100 mls/hr Norepinephrine Bitartrate 16 (mg/ Sodium Chloride) 250 mls @ 1.87 mls/hr IV.CONT TITRATE PRN; Protocol PRN Reason: See Protocol Sodium Chloride (Ns Inj) 1,000 mls @ 0 mls/hr OTHER .Q0M PRN PRN Reason: for prime and rinse back Sodium Chloride (Ns Inj) 1,000 mls @ 200 mls/hr OTHER .Q5H PRN PRN Reason: for dialyzer flush PRN Sodium Chloride (Ns Inj) 1,000 mls @ 0 mls/hr IV.CONT .Q0M PRN PRN Reason: hypotension / volume replace Albumin Human (Flexbumin 25% Inj) 100 mls @ 60 mls/hr IV.SIG WITH DIALYSIS PRN PRN Reason: hypotension / volume replace Last Infusion: 04/14/18 15:35 Dose: Infused Fentanyl (Fentanyl 10 Mcg/Ml Premix Drip) 2,500 mcg in 250 mls @ 5 mls/hr IV.SIG TITRATE PRN; Protocol PRN Reason: Per Protocol Last Admin: 04/15/18 14:47 Dose: 50 mcg/hr, 5 mls/hr Insulin Aspart (Novolog Insulin Correctional Sugar Inj) 0 unit SQ Q6HR COUNT INCLUDES THE [facility]; Protocol Last Admin: 04/15/18 11:36 Dose: Not Given Mannitol (Mannitol Inj) 12.5 gm IV.PUSH UNSCH PRN PRN Reason: hypotension / volume replace Miscellaneous Medication () 1 each OROPHARYNG 0000,0400,1200,1600 COUNT INCLUDES THE [facility] Last Admin: 04/15/18 11:36 Dose: 1 each Mupirocin (Bactroban 2% Nasal Oint) 1 applicatio EACH NARE BID COUNT INCLUDES THE [facility] Nitroglycerin (Nitrostat Sl) 0.4 mg SL Q5M PRN PRN Reason: CHEST PAIN Ondansetron HCl (Zofran Inj) 4 mg IV.PUSH UNSCH PRN PRN Reason: NAUSEA OR VOMITING Pantoprazole Sodium (Protonix Inj) 40 mg IV.PUSH Q12H COUNT INCLUDES THE [facility] Last Admin: 04/15/18 14:46 Dose: 40 mg Pharmacy Profile Note (Vancomycin Consult Pharmacy) 1 each OTHER UNSCH PRN PRN Reason: Pharmacy to dose Sodium Chloride (Ns Flush) 5 ml IV.FLUSH PRN PRN PRN Reason: flush each lumen during HD Terbutaline Sulfate (Brethine Inj) 1 mg SQ UNSCH PRN PRN Reason: For Extravasation <Naila Berg - Last Filed: 04/15/18 15:25> Active Medications: Active Medications Acetaminophen (Tylenol) 650 mg PO UNSCH PRN PRN Reason: SEE LABEL COMMENTS Albuterol (Duoneb Neb ([facility])) 1 ampul NEB Q4HR NEB COUNT INCLUDES THE [facility] Last Admin: 04/15/18 09:56 Dose: 1 ampul Albuterol (Albuterol Neb (Prn)) 2.5 mg NEB Q2HR NEB PRN PRN Reason: DYSPNEA Artificial Tears (Tears Naturale Opth Drops) 1 drop EACH EYE Q8H COUNT INCLUDES THE [facility] Last Admin: 04/15/18 10:25 Dose: 1 drop Aspirin (Aspirin Chew) 81 mg PO DAILY COUNT INCLUDES THE [facility] Last Admin: 04/15/18 08:14 Dose: 81 mg Chlorhexidine Gluconate (Chlorhexidine 2% Cloth) 3 pack TOPICAL DAILY@0400 COUNT INCLUDES THE [facility] Stop: 04/20/18 03:59 Last Admin: 04/15/18 04:36 Dose: 3 pack Chlorhexidine Gluconate (Chlorhexidine 2% Cloth) 3 pack TOPICAL DAILY@0400 PRN PRN Reason: Extra cloth needed Stop: 04/20/18 03:59 Chlorhexidine Gluconate (Peridex 0.12% Oral Kit) 15 ml OROPHARYNG BID@0800, 2000 COUNT INCLUDES THE [facility] Last Admin: 04/15/18 08:14 Dose: 15 ml Clonidine HCl (Catapres) 0.1 mg PO UNSCH PRN PRN Reason: SEE LABEL COMMENTS Dextrose (D50w Vial) 50 ml IV.PUSH UNSCH PRN PRN Reason: PER HYPOGLYCEMIA PROTOCOL Diphenhydramine HCl (Benadryl) 25 mg PO UNSCH PRN PRN Reason: SEE LABEL COMMENTS Gelatin (Gelfoam 12 Mm/7 Mm Topical) 1 foam TOPICAL PRN PRN PRN Reason: help stop bleeding from site Gentamicin Sulfate (Gentamicin Inj) 20 mg OTHER WITH DIALYSIS PRN PRN Reason: Dwell Gentamycin Lock Last Admin: 04/14/18 15:20 Dose: 20 mg Glucagon (Glucagon Inj) 1 mg OTHER PRN PRN PRN Reason: for Hypoglycemia Protocol Heparin Sodium (Porcine) (Heparin Inj) 5,000 units SQ Q12HR COUNT INCLUDES THE [facility] Last Admin: 04/15/18 08:14 Dose: 5,000 units Heparin Sodium (Porcine) (Heparin Inj) 8,000 units OTHER WITH DIALYSIS PRN PRN Reason: for machine prime Heparin Sodium (Porcine) (Heparin Inj) 1,000 units OTHER WITH DIALYSIS PRN PRN Reason: Dwell Heparin to Fill Catheter Last Admin: 04/14/18 15:19 Dose: 1,000 units Propofol (Diprivan 1000 Mg/100 Ml Inj) 1,000 mg in 100 mls @ 2.313 mls/hr IV.CONT TITRATE PRN; Protocol PRN Reason: Per Protocol Last Admin: 04/15/18 10:06 Dose: 20 mcg/kg/min, 9.25 mls/hr Piperacillin/Tazobactam/Dextrose (Zosyn 2.25 Gm Premix) 50 mls @ 100 mls/hr IV.SIG Q6H COUNT INCLUDES THE [facility] Last Infusion: 04/15/18 08:44 Dose: Infused Norepinephrine Bitartrate 16 (mg/ Sodium Chloride) 250 mls @ 1.87 mls/hr IV.CONT TITRATE PRN; Protocol PRN Reason: See Protocol Sodium Chloride (Ns Inj) 1,000 mls @ 0 mls/hr OTHER .Q0M PRN PRN Reason: for prime and rinse back Sodium Chloride (Ns Inj) 1,000 mls @ 200 mls/hr OTHER .Q5H PRN PRN Reason: for dialyzer flush PRN Sodium Chloride (Ns Inj) 1,000 mls @ 0 mls/hr IV.CONT .Q0M PRN PRN Reason: hypotension / volume replace Albumin Human (Flexbumin 25% Inj) 100 mls @ 60 mls/hr IV.SIG WITH DIALYSIS PRN PRN Reason: hypotension / volume replace Last Infusion: 04/14/18 15:35 Dose: Infused Vancomycin HCl 1,000 mg/ (Sodium Chloride) 250 mls @ 250 mls/hr IV.SIG ONCE ONE Stop: 04/15/18 14:59 Fentanyl (Fentanyl 10 Mcg/Ml Premix Drip) 2,500 mcg in 250 mls @ 5 mls/hr IV.SIG TITRATE PRN; Protocol PRN Reason: Per Protocol Insulin Aspart (Novolog Insulin Correctional Sugar Inj) 0 unit SQ Q6HR PRINCESS; Protocol Last Admin: 04/15/18 11:36 Dose: Not Given Mannitol (Mannitol Inj) 12.5 gm IV.PUSH UNSCH PRN PRN Reason: hypotension / volume replace Miscellaneous Medication () 1 each OROPHARYNG 0000,0400,1200,1600 COUNT INCLUDES THE [facility] Last Admin: 04/15/18 11:36 Dose: 1 each Mupirocin (Bactroban 2% Nasal Oint) 1 applicatio EACH NARE BID COUNT INCLUDES THE [facility] Nitroglycerin (Nitrostat Sl) 0.4 mg SL Q5M PRN PRN Reason: CHEST PAIN Ondansetron HCl (Zofran Inj) 4 mg IV.PUSH UNSCH PRN PRN Reason: NAUSEA OR VOMITING Pantoprazole Sodium (Protonix Inj) 40 mg IV.PUSH Q12H COUNT INCLUDES THE [facility] Last Admin: 04/15/18 02:26 Dose: 40 mg Pharmacy Profile Note (Vancomycin Consult Pharmacy) 1 each OTHER UNSCH PRN PRN Reason: Pharmacy to dose Sodium Chloride (Ns Flush) 5 ml IV.FLUSH PRN PRN PRN Reason: flush each lumen during HD Terbutaline Sulfate (Brethine Inj) 1 mg SQ UNSCH PRN PRN Reason: For Extravasation <Dania Barkley - Last Filed: 04/15/18 15:55> Allergies Allergy/AdvReac Type Severity Reaction Status Date / Time No Known Allergies Allergy Verified 01/22/18 10:23 Home Medications Medication Instructions Recorded Confirmed Type clonidine HCl 0.1 mg PO DAILY PRN 01/22/18 01/22/18 History furosemide 80 mg PO DAILY 01/22/18 01/22/18 History hydralazine 50 mg PO QID 01/22/18 01/22/18 History hydrocodone-acetaminophen [[place]] 1 tab PO Q4-6H PRN 01/22/18 01/22/18 History nifedipine 90 mg PO DAILY 01/22/18 01/22/18 History pantoprazole [Protonix] 40 mg PO DAILY 01/22/18 01/22/18 History Exam Vital signs: Vital Signs 04/14/18 15:30 04/14/18 15:45 04/14/18 16:00 Temperature 98.9 F Pulse Rate 79 79 80 Respiratory Rate 16 16 16 Blood Pressure 99/55 L 104/56 L 107/58 L Pulse Oximetry 95 95 95 04/14/18 16:15 04/14/18 16:30 04/14/18 16:45 Temperature Pulse Rate 82 82 84 Respiratory Rate 16 16 16 Blood Pressure 105/58 L 105/55 L 110/52 L Pulse Oximetry 95 95 95 04/14/18 17:00 04/14/18 17:15 04/14/18 17:30 Temperature Pulse Rate 86 87 88 Respiratory Rate 16 16 19 Blood Pressure 113/56 L 116/59 L 130/66 Pulse Oximetry 94 L 93 L 93 L 04/14/18 18:00 04/14/18 19:00 04/14/18 19:54 Temperature Pulse Rate 88 88 87 Respiratory Rate 16 16 16 Blood Pressure 136/63 145/65 H Pulse Oximetry 93 L 95 04/14/18 19:55 04/14/18 20:00 04/14/18 20:01 Temperature 100.3 F H Pulse Rate 92 H 91 H Respiratory Rate 16 16 17 Blood Pressure 170/72 H Pulse Oximetry 95 95 94 L 04/14/18 21:00 04/14/18 22:00 04/14/18 23:00 Temperature Pulse Rate 95 H 90 93 H Respiratory Rate 30 H 16 20 Blood Pressure 176/75 H 162/70 H 181/77 H Pulse Oximetry 95 96 95 04/14/18 23:02 04/14/18 23:10 04/14/18 23:35 Temperature Pulse Rate 95 H 99 H Respiratory Rate 23 42 H 16 Blood Pressure 181/77 H 193/79 H Pulse Oximetry 95 95 95 04/15/18 00:00 04/15/18 00:01 04/15/18 01:00 Temperature 99.7 F H Pulse Rate 86 86 85 Respiratory Rate 16 16 18 Blood Pressure 120/59 L 190/83 H Pulse Oximetry 95 95 96 04/15/18 01:02 04/15/18 02:00 04/15/18 03:00 Temperature Pulse Rate 85 86 86 Respiratory Rate 16 16 16 Blood Pressure 172/61 H 138/63 115/51 L Pulse Oximetry 95 96 96 04/15/18 03:19 04/15/18 03:55 04/15/18 04:00 Temperature 100.1 F H Pulse Rate 86 91 H Respiratory Rate 16 16 16 Blood Pressure 117/54 L Pulse Oximetry 95 95 04/15/18 05:00 04/15/18 07:46 04/15/18 08:00 Temperature 99.9 F H Pulse Rate 94 H 91 H Respiratory Rate 16 16 16 Blood Pressure 121/55 L 156/67 H Pulse Oximetry 96 95 94 L 04/15/18 09:00 04/15/18 09:57 04/15/18 12:00 Temperature 100.1 F H Pulse Rate 92 H 87 94 H Respiratory Rate 16 16 Blood Pressure 123/56 L Pulse Oximetry 96 95 04/15/18 15:13 Temperature Pulse Rate 101 H Respiratory Rate 16 Blood Pressure Pulse Oximetry 97 Intake & Output 04/14/18 04/15/18 04/15/18 18:59 06:59 18:59 Intake Total 1750 / 1750 200 / 200 150 / 150 Output Total 3400 / 3400 200 / 200 Balance -1650 / -1650 0 / 0 150 / 150 Weight 69.2 kg 68.7 kg Intake: IV 1750 / 1750 200 / 200 150 / 150 Diprivan 1000 mg/100 ml Inj 1, 0 / 0 000 mg In 100 ml @ 0 mls/hr . ROUTE .STK-MED ONE Rx#:[id number] Diprivan 1000 mg/100 ml Inj 1, 100 / 100 100 / 100 100 / 100 000 mg In 100 ml @ 5 MCG/KG/MIN 2.313 mls/hr IV.CONT TITRATE PRN Rx#:[id number] Flexbumin 25% Inj 100 ML @ 60 200 / 200 mls/hr IV.SIG WITH DIALYSIS PRN Rx#:[id number] Zosyn 2.25 GM Premix 50 ML @ 100 / 100 100 / 100 50 / 50 100 mls/hr IV.SIG Q6H PRINCESS Rx#: [id number] NS Inj 1,000 ML @ Wide Open IV. 1000 / 1000 SIG BOLUS ONE Rx#:[id number] Vancomycin Inj 1,000 MG In NS 250 / 250 Inj 250 ML @ 250 mls/hr IV.SIG ONCE ONE Rx#:[id number] Flagyl 500 MG Inj 100 ML @ 100 100 / 100 mls/hr IV.SIG ONCE ONE Rx#: [id number] Oral 0 / 0 0 / 0 Output: Hemodialysis Amount 2500 / 2500 Urine Amount (Catheter) 0 / 0 0 / 0 Indwelling Urethral Catheter 0 / 0 0 / 0 Gastric Drainage 900 / 900 200 / 200 Oral Orogastric Tube 900 / 900 200 / 200 Other: # Bowel Movements 0 0 Weight On Admission 69.2 kg <Naila Berg - Last Filed: 04/15/18 15:25> Vital signs: Vital Signs 04/14/18 14:01 04/14/18 14:42 04/14/18 14:55 Temperature Pulse Rate 75 78 Respiratory Rate 16 16 18 Blood Pressure Pulse Oximetry 04/14/18 15:00 04/14/18 15:09 04/14/18 15:15 Temperature Pulse Rate 78 79 Respiratory Rate 16 16 16 Blood Pressure 94/55 L 95/51 L Pulse Oximetry 90 L 96 94 L 04/14/18 15:30 04/14/18 15:45 04/14/18 16:00 Temperature 98.9 F Pulse Rate 79 79 80 Respiratory Rate 16 16 16 Blood Pressure 99/55 L 104/56 L 107/58 L Pulse Oximetry 95 95 95 04/14/18 16:15 04/14/18 16:30 04/14/18 16:45 Temperature Pulse Rate 82 82 84 Respiratory Rate 16 16 16 Blood Pressure 105/58 L 105/55 L 110/52 L Pulse Oximetry 95 95 95 04/14/18 17:00 04/14/18 17:15 04/14/18 17:30 Temperature Pulse Rate 86 87 88 Respiratory Rate 16 16 19 Blood Pressure 113/56 L 116/59 L 130/66 Pulse Oximetry 94 L 93 L 93 L 04/14/18 18:00 04/14/18 19:00 04/14/18 19:54 Temperature Pulse Rate 88 88 87 Respiratory Rate 16 16 16 Blood Pressure 136/63 145/65 H Pulse Oximetry 93 L 95 04/14/18 19:55 04/14/18 20:00 04/14/18 20:01 Temperature 100.3 F H Pulse Rate 92 H 91 H Respiratory Rate 16 16 17 Blood Pressure 170/72 H Pulse Oximetry 95 95 94 L 04/14/18 21:00 04/14/18 22:00 04/14/18 23:00 Temperature Pulse Rate 95 H 90 93 H Respiratory Rate 30 H 16 20 Blood Pressure 176/75 H 162/70 H 181/77 H Pulse Oximetry 95 96 95 04/14/18 23:02 04/14/18 23:10 04/14/18 23:35 Temperature Pulse Rate 95 H 99 H Respiratory Rate 23 42 H 16 Blood Pressure 181/77 H 193/79 H Pulse Oximetry 95 95 95 04/15/18 00:00 04/15/18 00:01 04/15/18 01:00 Temperature 99.7 F H Pulse Rate 86 86 85 Respiratory Rate 16 16 18 Blood Pressure 120/59 L 190/83 H Pulse Oximetry 95 95 96 04/15/18 01:02 04/15/18 02:00 04/15/18 03:00 Temperature Pulse Rate 85 86 86 Respiratory Rate 16 16 16 Blood Pressure 172/61 H 138/63 115/51 L Pulse Oximetry 95 96 96 04/15/18 03:19 04/15/18 03:55 04/15/18 04:00 Temperature 100.1 F H Pulse Rate 86 91 H Respiratory Rate 16 16 16 Blood Pressure 117/54 L Pulse Oximetry 95 95 04/15/18 05:00 04/15/18 07:46 04/15/18 08:00 Temperature 99.9 F H Pulse Rate 94 H 91 H Respiratory Rate 16 16 16 Blood Pressure 121/55 L 156/67 H Pulse Oximetry 96 95 94 L 04/15/18 09:00 04/15/18 09:57 04/15/18 12:00 Temperature 100.1 F H Pulse Rate 92 H 87 94 H Respiratory Rate 16 16 Blood Pressure 123/56 L Pulse Oximetry 96 95 Intake & Output 04/14/18 04/15/18 04/15/18 18:59 06:59 18:59 Intake Total 1750 / 1750 200 / 200 150 / 150 Output Total 3400 / 3400 200 / 200 Balance -1650 / -1650 0 / 0 150 / 150 Weight 69.2 kg 68.7 kg Intake: IV 1750 / 1750 200 / 200 150 / 150 Diprivan 1000 mg/100 ml Inj 1, 0 / 0 000 mg In 100 ml @ 0 mls/hr . ROUTE .STK-MED ONE Rx#:[id number] Diprivan 1000 mg/100 ml Inj 1, 100 / 100 100 / 100 100 / 100 000 mg In 100 ml @ 5 MCG/KG/MIN 2.313 mls/hr IV.CONT TITRATE PRN Rx#:[id number] Flexbumin 25% Inj 100 ML @ 60 200 / 200 mls/hr IV.SIG WITH DIALYSIS PRN Rx#:[id number] Zosyn 2.25 GM Premix 50 ML @ 100 / 100 100 / 100 50 / 50 100 mls/hr IV.SIG Q6H [facility] Rx#: [id number] NS Inj 1,000 ML @ Wide Open IV. 1000 / 1000 SIG BOLUS ONE Rx#:[id number] Vancomycin Inj 1,000 MG In NS 250 / 250 Inj 250 ML @ 250 mls/hr IV.SIG ONCE ONE Rx#:[id number] Flagyl 500 MG Inj 100 ML @ 100 100 / 100 mls/hr IV.SIG ONCE ONE Rx#: [id number] Oral 0 / 0 0 / 0 Output: Hemodialysis Amount 2500 / 2500 Urine Amount (Catheter) 0 / 0 0 / 0 Indwelling Urethral Catheter 0 / 0 0 / 0 Gastric Drainage 900 / 900 200 / 200 Oral Orogastric Tube 900 / 900 200 / 200 Other: # Bowel Movements 0 0 Weight On Admission 69.2 kg - Constitutional moderate distress, chronically ill appearing, disheveled - Routine HEENT Exam Head: Present: normocephalic (Pale) ENT: Present: mucous membranes moist - Routine Neck Exam Present: supple (ET tube) - Routine Respiratory Exam Present: patient mechanically ventilated - Routine Cardiovascular Exam Present: S1, S2 (Sinus rhythm heart rate 90s, regular rhythm) - Routine Abdominal Exam Present: soft (Round, soft hypoactive bowel sounds, NG tube to low intermittent suction with dark bilious drainage) - Routine Skin Exam Present: intact (Pale) - Routine Neurological Exam Present: altered mental status (Sedated) <Dania Barkley - Last Filed: 04/15/18 15:55> Results - Labs CBC & Chem 7: 04/15/18 09:40 04/15/18 04:45 Labs: Laboratory Results - last 24 hr 04/14/18 04/14/18 04/14/18 14:00 14:15 14:15 WBC RBC Hgb Hct MCV MCH MCHC RDW Plt Count MPV Prelim Diff (Auto) Neut % (Auto) Lymph % (Auto) [place] % (Auto) Eos % (Auto) Baso % (Auto) Neut # (Auto) Lymph # (Auto) [place] # (Auto) Eos # (Auto) Baso # (Auto) WBC Differential Seg Neuts % (Manual) Band Neuts % (Manual) Lymphocytes % (Manual) Monocytes % (Manual) Metamyelocytes % (Man) Abs Neuts (Manual) Differential Comment Dohle Bodies Platelet Estimate Platelet Morphology Ovalocytes Sodium Potassium Chloride Carbon Dioxide Anion Gap BUN Creatinine Estimated GFR POC Glucose Random Glucose Lactic Acid 4.3 H* Calcium Phosphorus Magnesium Total Bilirubin AST ALT Alkaline Phosphatase Total Creatine Kinase 906 H CK-MB (CK-2) 27.5 H CK-MB (CK-2) % 3.0 Troponin I 7.12 H* D Total Protein Albumin Lipase Nasal Screen MRSA (PCR) Mrsa detected Random Vancomycin Hepatitis A IgM Ab Hep Bs Antigen Hep B Core IgM Ab Hep C IgG Ab 04/14/18 04/14/18 04/14/18 18:00 18:27 20:15 WBC RBC Hgb Hct MCV MCH MCHC RDW Plt Count MPV Prelim Diff (Auto) Neut % (Auto) Lymph % (Auto) [place] % (Auto) Eos % (Auto) Baso % (Auto) Neut # (Auto) Lymph # (Auto) [place] # (Auto) Eos # (Auto) Baso # (Auto) WBC Differential Seg Neuts % (Manual) Band Neuts % (Manual) Lymphocytes % (Manual) Monocytes % (Manual) Metamyelocytes % (Man) Abs Neuts (Manual) Differential Comment Dohle Bodies Platelet Estimate Platelet Morphology Ovalocytes Sodium 143 Potassium 3.6 D Chloride 104 Carbon Dioxide 27.8 D Anion Gap 11 BUN 38 H Creatinine 5.82 H Estimated GFR 7 L POC Glucose 92 Random Glucose 88 Lactic Acid Calcium 7.7 L Phosphorus Magnesium Total Bilirubin 0.6 AST 2182 H ALT 967 H Alkaline Phosphatase 47 Total Creatine Kinase 685 H CK-MB (CK-2) 22.4 H CK-MB (CK-2) % 3.3 Troponin I 7.39 H* D Total Protein 8.6 H Albumin 4.3 D Lipase Nasal Screen MRSA (PCR) Random Vancomycin Hepatitis A IgM Ab Nonreactive Hep Bs Antigen Nonreactive Hep B Core IgM Ab Nonreactive Hep C IgG Ab Nonreactive 04/15/18 04/15/18 04/15/18 00:02 04:45 05:38 WBC RBC Hgb Hct MCV MCH MCHC RDW Plt Count MPV Prelim Diff (Auto) Neut % (Auto) Lymph % (Auto) [place] % (Auto) Eos % (Auto) Baso % (Auto) Neut # (Auto) Lymph # (Auto) [place] # (Auto) Eos # (Auto) Baso # (Auto) WBC Differential Seg Neuts % (Manual) Band Neuts % (Manual) Lymphocytes % (Manual) Monocytes % (Manual) Metamyelocytes % (Man) Abs Neuts (Manual) Differential Comment Dohle Bodies Platelet Estimate Platelet Morphology Ovalocytes Sodium 143 Potassium 4.3 Chloride 103 Carbon Dioxide 24.2 Anion Gap 16 H BUN 54 H Creatinine 7.38 H Estimated GFR 5 L POC Glucose 126 H 134 H Random Glucose 133 H Lactic Acid Calcium 7.5 L Phosphorus Magnesium Total Bilirubin 0.7 AST 1050 H ALT 806 H Alkaline Phosphatase 45 Total Creatine Kinase CK-MB (CK-2) CK-MB (CK-2) % Troponin I Total Protein 8.0 D Albumin 3.5 D Lipase Nasal Screen MRSA (PCR) Random Vancomycin 11.1 Hepatitis A IgM Ab Hep Bs Antigen Hep B Core IgM Ab Hep C IgG Ab 04/15/18 04/15/18 04/15/18 09:40 09:40 09:40 WBC 8.4 RBC 3.23 L Hgb 10.6 L D Hct 32.4 L MCV 100.1 H D MCH 32.7 MCHC 32.6 RDW 19.9 H Plt Count 198 MPV 8.9 Prelim Diff (Auto) Slide review pending Neut % (Auto) 86.7 H Lymph % (Auto) 8.1 L [place] % (Auto) 4.0 Eos % (Auto) 0.7 Baso % (Auto) 0.5 Neut # (Auto) 7.3 Lymph # (Auto) 0.7 L [place] # (Auto) 0.3 Eos # (Auto) 0.1 Baso # (Auto) 0.0 WBC Differential Manual diff final Seg Neuts % (Manual) 77 H Band Neuts % (Manual) 16 H Lymphocytes % (Manual) 4 L Monocytes % (Manual) 2 Metamyelocytes % (Man) 1 Abs Neuts (Manual) 7.9 H Differential Comment . Dohle Bodies Present H Platelet Estimate Normal Platelet Morphology Normal Ovalocytes 1+ H Sodium Potassium Chloride Carbon Dioxide Anion Gap BUN Creatinine Estimated GFR POC Glucose Random Glucose Lactic Acid 2.2 H Calcium Phosphorus 6.4 H Magnesium 2.1 Total Bilirubin AST ALT Alkaline Phosphatase Total Creatine Kinase CK-MB (CK-2) CK-MB (CK-2) % Troponin I 4.35 H* D Total Protein Albumin Lipase 47 L Nasal Screen MRSA (PCR) Random Vancomycin Hepatitis A IgM Ab Hep Bs Antigen Hep B Core IgM Ab Hep C IgG Ab 04/15/18 11:31 WBC RBC Hgb Hct MCV MCH MCHC RDW Plt Count MPV Prelim Diff (Auto) Neut % (Auto) Lymph % (Auto) [place] % (Auto) Eos % (Auto) Baso % (Auto) Neut # (Auto) Lymph # (Auto) [place] # (Auto) Eos # (Auto) Baso # (Auto) WBC Differential Seg Neuts % (Manual) Band Neuts % (Manual) Lymphocytes % (Manual) Monocytes % (Manual) Metamyelocytes % (Man) Abs Neuts (Manual) Differential Comment Dohle Bodies Platelet Estimate Platelet Morphology Ovalocytes Sodium Potassium Chloride Carbon Dioxide Anion Gap BUN Creatinine Estimated GFR POC Glucose 115 H Random Glucose Lactic Acid Calcium Phosphorus Magnesium Total Bilirubin AST ALT Alkaline Phosphatase Total Creatine Kinase CK-MB (CK-2) CK-MB (CK-2) % Troponin I Total Protein Albumin Lipase Nasal Screen MRSA (PCR) Random Vancomycin Hepatitis A IgM Ab Hep Bs Antigen Hep B Core IgM Ab Hep C IgG Ab - Imaging Impressions Liver Ultrasound 04/14/18 12:44 CONCLUSION: 1. Gallbladder contains sludge and stones. However, no additional findings are present to definitively indicate acute cholecystitis. 2. Common bile duct is enlarged but contains no visible stone. Given the pain one could consider MRCP for further evaluation of the common duct stone as a cause for the duct dilatation in right upper quadrant pain. 3. Atrophic right kidney with changes suggesting chronic medical renal disease. There is a complex cystic lesion in the mid kidney and renal sinus measuring up to 3.5 cm. At some point ideally be further characterized with renal protocol MRI with and without intravenous contrast. This should be performed on an elective basis when condition permits. Upper Extremity Ultrasound 04/15/18 00:00 CONCLUSION: Patent left AV fistula. Venous Doppler Study 04/15/18 00:00 CONCLUSION: No evidence of DVT. <Naila Berg - Last Filed: 04/15/18 15:25> - Labs CBC & Chem 7: 04/15/18 09:40 04/15/18 04:45 Labs: Laboratory Results - last 24 hr 04/14/18 04/14/18 04/14/18 14:00 14:15 14:15 WBC RBC Hgb Hct MCV MCH MCHC RDW Plt Count MPV Prelim Diff (Auto) Neut % (Auto) Lymph % (Auto) [place] % (Auto) Eos % (Auto) Baso % (Auto) Neut # (Auto) Lymph # (Auto) [place] # (Auto) Eos # (Auto) Baso # (Auto) WBC Differential Seg Neuts % (Manual) Band Neuts % (Manual) Lymphocytes % (Manual) Monocytes % (Manual) Metamyelocytes % (Man) Abs Neuts (Manual) Differential Comment Dohle Bodies Platelet Estimate Platelet Morphology Ovalocytes Sodium Potassium Chloride Carbon Dioxide Anion Gap BUN Creatinine Estimated GFR POC Glucose Random Glucose Lactic Acid 4.3 H* Calcium Phosphorus Magnesium Total Bilirubin AST ALT Alkaline Phosphatase Total Creatine Kinase 906 H CK-MB (CK-2) 27.5 H CK-MB (CK-2) % 3.0 Troponin I 7.12 H* D Total Protein Albumin Lipase Nasal Screen MRSA (PCR) Mrsa detected Random Vancomycin Hepatitis A IgM Ab Hep Bs Antigen Hep B Core IgM Ab Hep C IgG Ab 04/14/18 04/14/18 04/14/18 18:00 18:27 20:15 WBC RBC Hgb Hct MCV MCH MCHC RDW Plt Count MPV Prelim Diff (Auto) Neut % (Auto) Lymph % (Auto) [place] % (Auto) Eos % (Auto) Baso % (Auto) Neut # (Auto) Lymph # (Auto) [place] # (Auto) Eos # (Auto) Baso # (Auto) WBC Differential Seg Neuts % (Manual) Band Neuts % (Manual) Lymphocytes % (Manual) Monocytes % (Manual) Metamyelocytes % (Man) Abs Neuts (Manual) Differential Comment Dohle Bodies Platelet Estimate Platelet Morphology Ovalocytes Sodium 143 Potassium 3.6 D Chloride 104 Carbon Dioxide 27.8 D Anion Gap 11 BUN 38 H Creatinine 5.82 H Estimated GFR 7 L POC Glucose 92 Random Glucose 88 Lactic Acid Calcium 7.7 L Phosphorus Magnesium Total Bilirubin 0.6 AST 2182 H ALT 967 H Alkaline Phosphatase 47 Total Creatine Kinase 685 H CK-MB (CK-2) 22.4 H CK-MB (CK-2) % 3.3 Troponin I 7.39 H* D Total Protein 8.6 H Albumin 4.3 D Lipase Nasal Screen MRSA (PCR) Random Vancomycin Hepatitis A IgM Ab Nonreactive Hep Bs Antigen Nonreactive Hep B Core IgM Ab Nonreactive Hep C IgG Ab Nonreactive 04/15/18 04/15/18 04/15/18 00:02 04:45 05:38 WBC RBC Hgb Hct MCV MCH MCHC RDW Plt Count MPV Prelim Diff (Auto) Neut % (Auto) Lymph % (Auto) [place] % (Auto) Eos % (Auto) Baso % (Auto) Neut # (Auto) Lymph # (Auto) [place] # (Auto) Eos # (Auto) Baso # (Auto) WBC Differential Seg Neuts % (Manual) Band Neuts % (Manual) Lymphocytes % (Manual) Monocytes % (Manual) Metamyelocytes % (Man) Abs Neuts (Manual) Differential Comment Dohle Bodies Platelet Estimate Platelet Morphology Ovalocytes Sodium 143 Potassium 4.3 Chloride 103 Carbon Dioxide 24.2 Anion Gap 16 H BUN 54 H Creatinine 7.38 H Estimated GFR 5 L POC Glucose 126 H 134 H Random Glucose 133 H Lactic Acid Calcium 7.5 L Phosphorus Magnesium Total Bilirubin 0.7 AST 1050 H ALT 806 H Alkaline Phosphatase 45 Total Creatine Kinase CK-MB (CK-2) CK-MB (CK-2) % Troponin I Total Protein 8.0 D Albumin 3.5 D Lipase Nasal Screen MRSA (PCR) Random Vancomycin 11.1 Hepatitis A IgM Ab Hep Bs Antigen Hep B Core IgM Ab Hep C IgG Ab 04/15/18 04/15/18 04/15/18 09:40 09:40 09:40 WBC 8.4 RBC 3.23 L Hgb 10.6 L D Hct 32.4 L MCV 100.1 H D MCH 32.7 MCHC 32.6 RDW 19.9 H Plt Count 198 MPV 8.9 Prelim Diff (Auto) Slide review pending Neut % (Auto) 86.7 H Lymph % (Auto) 8.1 L [place] % (Auto) 4.0 Eos % (Auto) 0.7 Baso % (Auto) 0.5 Neut # (Auto) 7.3 Lymph # (Auto) 0.7 L [place] # (Auto) 0.3 Eos # (Auto) 0.1 Baso # (Auto) 0.0 WBC Differential Manual diff final Seg Neuts % (Manual) 77 H Band Neuts % (Manual) 16 H Lymphocytes % (Manual) 4 L Monocytes % (Manual) 2 Metamyelocytes % (Man) 1 Abs Neuts (Manual) 7.9 H Differential Comment . Dohle Bodies Present H Platelet Estimate Normal Platelet Morphology Normal Ovalocytes 1+ H Sodium Potassium Chloride Carbon Dioxide Anion Gap BUN Creatinine Estimated GFR POC Glucose Random Glucose Lactic Acid 2.2 H Calcium Phosphorus 6.4 H Magnesium 2.1 Total Bilirubin AST ALT Alkaline Phosphatase Total Creatine Kinase CK-MB (CK-2) CK-MB (CK-2) % Troponin I 4.35 H* D Total Protein Albumin Lipase 47 L Nasal Screen MRSA (PCR) Random Vancomycin Hepatitis A IgM Ab Hep Bs Antigen Hep B Core IgM Ab Hep C IgG Ab 04/15/18 11:31 WBC RBC Hgb Hct MCV MCH MCHC RDW Plt Count MPV Prelim Diff (Auto) Neut % (Auto) Lymph % (Auto) [place] % (Auto) Eos % (Auto) Baso % (Auto) Neut # (Auto) Lymph # (Auto) [place] # (Auto) Eos # (Auto) Baso # (Auto) WBC Differential Seg Neuts % (Manual) Band Neuts % (Manual) Lymphocytes % (Manual) Monocytes % (Manual) Metamyelocytes % (Man) Abs Neuts (Manual) Differential Comment Dohle Bodies Platelet Estimate Platelet Morphology Ovalocytes Sodium Potassium Chloride Carbon Dioxide Anion Gap BUN Creatinine Estimated GFR POC Glucose 115 H Random Glucose Lactic Acid Calcium Phosphorus Magnesium Total Bilirubin AST ALT Alkaline Phosphatase Total Creatine Kinase CK-MB (CK-2) CK-MB (CK-2) % Troponin I Total Protein Albumin Lipase Nasal Screen MRSA (PCR) Random Vancomycin Hepatitis A IgM Ab Hep Bs Antigen Hep B Core IgM Ab Hep C IgG Ab - Imaging Impressions Liver Ultrasound 04/14/18 12:44 CONCLUSION: 1. Gallbladder contains sludge and stones. However, no additional findings are present to definitively indicate acute cholecystitis. 2. Common bile duct is enlarged but contains no visible stone. Given the pain one could consider MRCP for further evaluation of the common duct stone as a cause for the duct dilatation in right upper quadrant pain. 3. Atrophic right kidney with changes suggesting chronic medical renal disease. There is a complex cystic lesion in the mid kidney and renal sinus measuring up to 3.5 cm. At some point ideally be further characterized with renal protocol MRI with and without intravenous contrast. This should be performed on an elective basis when condition permits. Venous Doppler Study 04/15/18 00:00 CONCLUSION: No evidence of DVT. <Dania Barkley - Last Filed: 04/15/18 15:55> Assessment and Plan - Attending Attestation seen, examined agree with above patient was evaluated by surgery -cholecystostomy or cholecystectomy not recommended possible shock liver mrcp if stable close monitoring of lfts <Naila Berg - Last Filed: 04/15/18 15:25> - Plan This is a 72-year-old female who entered the hospital on 04/14/2018 after being found unresponsive per her roommate. According to the record and staff patient was intubated in the emergency room setting and received multiple lab work and aggressive therapy there was a CAT scan that showed distended gallbladder with cholelithiasis and liver ultrasound that showed positive cholelithiasis and gallbladder sludge and a small amount of air in the fundus of the gallbladder. Lab work was reviewed which showed initial hemoglobin 12.6 now decreased to 10.6 , initial WBC count 12.5 now normalized to 8.4, PT/INR 1.3, lipase 47, bilirubin 0.7, AST 1050, ALT 8:06 AM positive troponin IV 0.35. Gastroenterology was consulted to assist in her plan of care but it is noted after examination of the patient and per the record patient is acutely critically ill in the intensive care setting. There is currently no family present but according to staff patient has a daughter and a son. Transaminitis, these elevated liver enzymes could be related to shock liver since patient was found unresponsive. She will need continuing monitoring of these labs for any acute changes Anemia current hemoglobin 10.6 which is a mild decrease from admission. Patient has NG tube which shows dark bilious fluid return but also some possible coffee-ground debris noted initially in the NG tube. We will need to rule out any GI bleeding Ultrasound of the liver did show positive gallstones and sludge and recommendation was for MRCP but this will need to be done when patient is stable. MRCP has been ordered but probably on hold for this p.m. History of end-stage renal disease on hemodialysis Monday and Monday schedule. Patient has had cultures done for possible sepsis Left upper extremity is cool to the touch right upper extremity is warm, both lower extremities are cool. Possible non-STEMI cardiology involved Possible gallbladder disease rule out Ultrasound gallbladder contains sludge and stones. However, no additional findings are present to definitively indicate acute cholecystitis. Common bile duct is enlarged but contains no visible stone. Given the pain one could consider MRCP for further evaluation of the common duct stone as a cause for the duct dilatation in right upper quadrant pain. Atrophic right kidney with changes suggesting chronic medical renal disease. There is a complex cystic lesion in the mid kidney and renal sinus measuring up to 3.5 cm. At some point ideally be further characterized with renal protocol MRI with and without intravenous contrast. This should be performed on an elective basis when condition permits. Plan Diet currently n.p.o. NG tube remains to low intermittent suction with moderate amount of dark bilious fluid, possible coffee-ground residual noted initially in NG tube but none in the lower portion of the tube Monitor labs with special attention hemoglobin LFTs and bilirubin MRCP ordered but pending patient stabilization Further recommendations to follow Patient was seen per myself and Dr. Berg, note was written on her behalf Patient has low grade fever,but BP stable now, Spoke with nurse to proceed with MRCP <Dania Barkley - Last Filed: 04/15/18 15:55>
[2018-04-15] MEDS ORDERED: Vancomycin Inj 1,000 MG in Sodium Chlor 0.9% Inj 250 ML IV.SIG ONE (14:00)
--- NOTE | 2018-04-15 14:16 | ECHRPT ---
Indication: POSS SEPSIS, ENDOCARDITIS CONCLUSIONS Moderate concentric left ventricular hypertrophy. Normal left ventricular size. The left ventricular systolic function is hyperdynamic with an estimated ejection fraction in the ra nge of 65- 70%. Thickened atrial septum is noted with morphological features most consistent with a lipomatous atria l septum. Trace mitral valve regurgitation. Aortic valve sclerosis is present. There is trace tricuspid valve regurgitation. There is less than 50% respiratory change in dimension of the inferior vena cava (abnormal). A right sided pleural effusion is present. BP: / HR: Rhythm: Sinus MEASUREMENTS (Male / Female) Normal Values Technical Quality:Fair 2D ECHO LV Diastolic Diameter PLAX 3.4 cm 4.2 - 5.9 / 3.9 - 5.3 cm LV Systolic Diameter PLAX 2.5 cm IVS Diastolic Thickness 1.5 cm 0.6 - 1.0 / 0.6 - 0.9 cm LVPW Diastolic Thickness 1.5 cm 0.6 - 1.0 / 0.6 - 0.9 cm LV Relative Wall Thickness 0.9 RV Internal Dim ED PLAX 3.3 cm LVOT Diameter 2.1 cm Aortic Root Diameter 3.0 cm LA Systolic Diameter LX 2.1 cm 3.0 - 4.0 / 2.7 - 3.8 cm M-MODE AV Cusp Separation MM 1.9 cm DOPPLER AV Peak Velocity 211.0 cm/s AV Peak Gradient 17.8 mmHg AV Mean Gradient 8.3 mmHg AV Velocity Time Integral 29.5 cm LVOT Peak Velocity 305.0 cm/s LVOT Peak Gradient 37.2 mmHg LVOT Velocity Time Integral 30.7 cm AV Area Cont Eq vti 3.6 cm AV Area Cont Eq pk 5.0 cm Mitral E Point Velocity 65.1 cm/s Mitral A Point Velocity 96.0 cm/s Mitral E to A Ratio 0.7 LV E' Lateral Velocity 5.4 cm/s Mitral E to LV E' Lateral Ratio 12.1 LV E' Septal Velocity 2.8 cm/s Mitral E to LV E' Septal Ratio 23.0 PV Peak Velocity 69.9 cm/s PV Peak Gradient 2.0 mmHg FINDINGS LEFT VENTRICLE Moderate concentric left ventricular hypertrophy. Normal left ventricular size. The left ventricular systolic function is hyperdynamic with an estimated ejection fraction in the ra nge of 65- 70%. RIGHT VENTRICLE Normal right ventricular size and systolic function. LEFT ATRIUM The left atrial size is normal. RIGHT ATRIUM The right atrial size is normal. ATRIAL SEPTUM Thickened atrial septum is noted with morphological features most consistent with a lipomatous atria l septum. No atrial level shunt is demonstrated by color flow Doppler interrogation. AORTA The aortic root and proximal ascending aorta are not well visualized. MITRAL VALVE Trace mitral valve regurgitation. AORTIC VALVE Aortic valve sclerosis is present. TRICUSPID VALVE There is trace tricuspid valve regurgitation. PULMONARY VALVE The pulmonary valve is not well visualized. VESSELS There is less than 50% respiratory change in dimension of the inferior vena cava (abnormal). PERICARDIUM No pericardial effusion. A right sided pleural effusion is present. Robb Vigil MD, FACC (Electronically Signed) Final Date:15 April 2018 14:15
--- NOTE | 2018-04-15 14:28 | US ---
EXAM DATE: 04/15/2018 2:21 PM EST AGE/SEX: 72 years / Female INDICATIONS: Evaluate fistula. CLINICAL DATA: This is the patient's initial encounter. Patient reports that signs and symptoms have been present for 1 day and indicates a pain score of Nonresponsive. MEDICAL/SURGICAL HISTORY: . Diabetes. Gastroesophageal reflux disease. Hypertension. End stage renal disease. Stroke. TIA. . Peritoneal dialysis catheter. COMPARISON: [facility] – [place], [place] VENOUS DOPPLER ARM LEFT, 04/15/2018. . FINDINGS: The left AV fistula appears patent. There is good arterial supply to the fistula and venous return. I t appears the AV fistula between the brachial artery and the basilic vein. CONCLUSION: Patent left AV fistula. Electronically signed by: Antonio Vo MD 04/15/2018 2:26 PM EST
[2018-04-15] MEDS: fentaNYL 10 mcg/mL Premix Drip 2,500 MCG/250 ML BAG IV.SIG PRN (14:47)
[2018-04-15] MEDS: Mupirocin 2% Nasal Oint Topical Syringe EACH NARE SCH (21:40)
[2018-04-16] MEDS: Insulin NovoLOG Aspart Correctional Sugar Inj SQ SCH ×4 (00:24→19:32)
[2018-04-16] MEDS: Oral Hygiene Kit OROPHARYNG SCH ×4 (00:25→16:37)
[2018-04-16] MEDS: Piperacil/Tazo 2.25 GM Premix 50 ML IV.SIG SCH ×4 (01:05→21:02)
[2018-04-16] MEDS: Propofol 1000 mg/100 ml Inj 1,000 MG/100 ML BOTTLE IV.CONT PRN ×3 (04:38→23:50)
[2018-04-16] MEDS: Artificial Tears Opth Drops 15 ML Bottle EACH EYE SCH ×3 (04:38→21:02)
[2018-04-16] MEDS: Chlorhexidine Gluconate 2% 1 Pack (2 Cloths) TOPICAL SCH (04:38)
[2018-04-16] MEDS: Pantoprazole Inj 40 MG Vial IV.PUSH SCH ×2 (04:39→15:07)
[2018-04-16 04:52] LABS: Baso # (Auto) 0.1 th/mm3 (0.0-0.2); Baso % (Auto) 0.6 % (0.0-2.0); Eos # (Auto) 0.1 th/mm3 (0.0-0.4); Hematocrit 31.6 % (35.0-46.0); Hemoglobin 10.3 gm/dL (11.6-15.3); Lymph # (Auto) 1.7 th/mm3 (1.0-4.8); Lymph % (Auto) 13.6 % (9.0-44.0); Mean Corpuscular HGB Conc 32.5 % (32.0-36.0); Mean Corpuscular Hemoglobin 31.9 pg (27.0-34.0); Mean Corpuscular Volume 98.2 fL (80.0-100.0); Mean Platelet Volume 8.8 fL (7.0-11.0); Mono # (Auto) 0.4 th/mm3 (0.0-0.9); Mono % (Auto) 3.5 % (0.0-8.0); Neut # (Auto) 10.1 th/mm3 (1.8-7.7); Neut % (Auto) 81.3 % (16.0-70.0); Platelet Count 217 th/mm3 (150-450); Red Blood Count 3.22 mil/mm3 (4.00-5.30); Red Cell Distribution Width 19.5 % (11.6-17.2); White Blood Count 12.4 th/mm3 (4.0-11.0)
--- NOTE | 2018-04-16 04:57 | XR ---
EXAM DATE: 04/16/2018 4:42 AM EST AGE/SEX: 72 years / Female INDICATIONS: Shortness of breath, possible pulmonary disease. CLINICAL DATA: This is the patient's subsequent encounter. Patient reports that signs and symptoms h ave been present for 4 - 6 days and indicates a pain score of Nonresponsive. MEDICAL/SURGICAL HISTORY: Diabetes. Gastroesophageal reflux disease. Hypertension. End stag e renal disease. Stroke. None. COMPARISON: 04/14/2018. FINDINGS: Single AP view the chest. Endotracheal tube, nasogastric tube, left subclavian central venous cathete r, and right subclavian dual-lumen central venous catheter remain in place. Lungs are clear. Cardiome diastinal silhouette unchanged. No evidence of pleural effusion or pneumothorax. CONCLUSION: No significant interval change. No acute cardiopulmonary disease identified. Electronically signed by: Mil Lopez MD 04/16/2018 4:55 AM EST
[2018-04-16 05:02] LABS: Activated Partial Thrombo Time 44.3 sec (23.4-31.7); INR 1.3 Ratio; Prothrombin Time 12.7 sec (9.8-11.6)
[2018-04-16 05:04] LABS: Alanine Aminotransferase 632 U/L (10-53); Albumin 3.1 g/dL (3.4-5.0); Alkaline Phosphatase 58 U/L (45-117); Anion Gap 17 meq/L (5-15); Aspartate Aminotransferase 475 U/L (15-37); Blood Urea Nitrogen 79 mg/dL (7-18); Carbon Dioxide 22.8 meq/L (21.0-32.0); Chloride 101 meq/L (98-107); Creatine Kinase 506 U/L (26-192); Glomerular Filtration Rate 4 mL/min (>89); Glucose,Random 94 mg/dL (74-106); Magnesium 2.3 mg/dL (1.5-2.5); Phosphorus 7.6 mg/dL (2.5-4.9); Potassium 4.5 meq/L (3.5-5.1); Sodium 141 meq/L (136-145); Total Protein 7.8 g/dL (6.4-8.2); Vancomycin,Random 27.2 Comment
[2018-04-16 05:18] LABS: CKMB Percent 1.2 % (0.0-4.0); Creatine Kinase MB 6.2 ng/mL (0.5-3.6)
[2018-04-16 06:53] LABS: Dohle Bodies Present; Eosinophils 1 % (0-4); Lymphocytes 19 % (9-44); Monocytes 2 % (0-8); Platelet Estimate Normal (Normal)
[2018-04-16] MEDS: Mupirocin 2% Nasal Oint Topical Syringe EACH NARE SCH ×2 (08:39→21:03)
[2018-04-16] MEDS: Chlorhexidine 0.12% Oral Kit 15 ML UDC OROPHARYNG SCH ×2 (08:39→21:02)
[2018-04-16] MEDS: Heparin - SQ 10,000 UNITS/ML Vial SQ SCH ×2 (08:39→21:03)
--- NOTE | 2018-04-16 08:40 | P.PNCC ---
Subjective Subjective Remarks/Hospital Course: Patient is a 72-year-old female with past medical history significant for previous strokes, TIA, end-stage renal disease on hemodialysis (Monday, Monday schedule), Left AV fistula on 01/2018, type 2 diabetes, and hypertension. EMS was called as her roommate found her unresponsive last seen normal yesterday night. IV 0.4 mg of Narcan was given without any response. Patient was intubated in the emergency department for airway protection, for a GCS 8. Lab work showed leukocytosis of 12,500 with a left shift of 90% neutrophilia, 29% bands. Lactic acid came back at 6. CMP showed potassium of 6.0 bicarb of 16.7, anion gap of 24, liver enzymes were markedly elevated AST 1992 ALT 758, CPK 475, troponin 5.21. EKG did not show any evidence of acute ST elevation. ABG shows pH of 7.19 PCO2 of 48 PaO2 of [address] abdomen pelvis showed distended gallbladder with cholelithiasis, also small amount of air in the fundus of the gallbladder. Critical care medicine was consulted for admission. I evaluated the patient in the emergency department. She is acutely ill critical appearing. Intermittently hypotensive. Dr. Vargas has placed a left subclavian central line. I will start Levophed if needed. Patient received Zosyn and Flagyl in the ED. I will place patient on vancomycin and Zosyn renally dosed. Pierre cultures have been sent. With the CT finding I contacted Dr. Cortes who requested stat ultrasound of the right upper quadrant. Also ID was consulted and I discussed with Dr. Montaño. Patient has healed scars probably few week old laparoscopic abdominal surgery, it is unclear what kind of surgery she had. Dr. Fermin consulted for an STEMI. Nephrology Dr. Gillette consulted for emergent hemodialysis 04/15 -T-max 101. Remains on broad-spectrum antibiotics. Noted cool left fingers not cyanotic but will check fistula Doppler and arterial Dopplers and venous Doppler left upper extremity. Central line placed left subclavian noted. Subjective 04/16: T-max 100.5. MRCP pending. Right upper lower extremity and left lower extremity remains warm. Cool left upper extremity. Has seen Dr. Wu for her left AV fistula in the past. Positive dopplerable/patent left AV fistula noted by Doppler 04/15. Downward trending liver function test. Objective Vital Signs / I&O: Vital Signs 04/15/18 09:00 04/15/18 09:01 04/15/18 09:57 Temperature Pulse Rate 92 H 92 H 87 Respiratory Rate 16 16 16 Blood Pressure 97/50 L Pulse Oximetry 95 95 96 04/15/18 10:00 04/15/18 11:00 04/15/18 12:00 Temperature 100.1 F H Pulse Rate 87 91 H 94 H Respiratory Rate 16 22 16 Blood Pressure 122/58 L 120/56 L 123/56 L Pulse Oximetry 95 96 95 04/15/18 13:00 04/15/18 14:00 04/15/18 14:11 Temperature Pulse Rate 96 H 99 H 100 H Respiratory Rate 16 16 16 Blood Pressure 170/72 H 175/77 H 183/92 H Pulse Oximetry 94 L 96 95 04/15/18 15:00 04/15/18 15:13 04/15/18 16:00 Temperature 100.5 F H Pulse Rate 95 H 101 H 93 H Respiratory Rate 16 16 16 Blood Pressure 123/58 L 127/60 Pulse Oximetry 95 97 95 04/15/18 17:00 04/15/18 18:00 04/15/18 19:00 Temperature Pulse Rate 89 88 89 Respiratory Rate 16 16 16 Blood Pressure 129/65 130/68 135/65 Pulse Oximetry 95 96 96 04/15/18 20:00 04/15/18 20:13 04/15/18 21:00 Temperature 99.0 F Pulse Rate 85 85 87 Respiratory Rate 16 16 16 Blood Pressure 123/59 L 136/67 Pulse Oximetry 96 96 95 04/15/18 22:00 04/15/18 23:00 04/16/18 00:00 Temperature 99.1 F Pulse Rate 90 87 84 Respiratory Rate 16 16 16 Blood Pressure 117/57 L 124/61 101/56 L Pulse Oximetry 96 93 L 95 04/16/18 00:10 04/16/18 01:00 04/16/18 02:00 Temperature Pulse Rate 83 84 83 Respiratory Rate 16 16 16 Blood Pressure 122/65 136/66 Pulse Oximetry 95 96 96 04/16/18 03:00 04/16/18 03:32 04/16/18 04:00 Temperature 98.5 F Pulse Rate 80 81 88 Respiratory Rate 16 16 23 Blood Pressure 144/68 H 173/77 H Pulse Oximetry 95 95 04/16/18 05:00 04/16/18 06:00 04/16/18 07:35 Temperature Pulse Rate 86 81 80 Respiratory Rate 16 16 16 Blood Pressure 97/54 L 106/57 L Pulse Oximetry 94 L 96 96 Intake & Output 04/15/18 04/16/18 04/16/18 18:59 06:59 18:59 Intake Total 550 / 550 200 / 200 0 / 0 Output Total 50 / 50 190 / 190 Balance 500 / 500 200 / 200 -190 / -190 Weight 67.8 kg Intake: IV 550 / 550 200 / 200 Diprivan 1000 mg/100 ml Inj 1, 200 / 200 100 / 100 000 mg In 100 ml @ 5 MCG/KG/MIN 2.313 mls/hr IV.CONT TITRATE PRN Rx#:[id number] Zosyn 2.25 GM Premix 50 ML @ 100 / 100 100 / 100 100 mls/hr IV.SIG Q6H CIRILO Rx#: [id number] Vancomycin Inj 1,000 MG In NS 250 / 250 Inj 250 ML @ 250 mls/hr IV.SIG ONCE ONE Rx#:[id number] Oral 0 / 0 0 / 0 Output: Urine 0 / 0 0 / 0 Gastric Drainage 50 / 50 190 / 190 Oral Orogastric Tube 50 / 50 190 / 190 Other: # Bowel Movements 0 0 Result Diagrams: 04/16/18 04:30 04/16/18 04:30 Other Results: Microbiology 04/14/18 10:35 Clean Catch Urine Urine Culture - Final No growth in 48 hours 04/14/18 15:15 Sputum - Endotracheal Gram Stain - Final 04/14/18 15:15 Sputum - Endotracheal Sputum Culture - Preliminary 04/14/18 10:20 Blood - Peripheral Aerobic Blood Culture - Preliminary No growth in 1 day 04/14/18 10:20 Blood - Peripheral Anaerobic Blood Culture - Preliminary No growth in 1 day 04/14/18 10:25 Blood - Peripheral Aerobic Blood Culture - Preliminary No growth in 1 day 04/14/18 10:25 Blood - Peripheral Anaerobic Blood Culture - Preliminary No growth in 1 day Imaging: Chest X-Ray 04/14/18 09:44 CONCLUSION: Satisfactory position of supporting devices Interval placement of bilateral central venous catheters without evidence of pneumothorax. Cardiomegaly with out evidence of acute airspace disease or significant pulmonary edema. Head CT 04/14/18 09:44 CONCLUSION: 1. 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 2. No evidence of acute infarct, hemorrhage, mass or edema. 3. No significant change compared to 04/12/2017. . Abdomen/Pelvis CT 04/14/18 10:59 CONCLUSION: 1. Distended gallbladder with cholelithiasis and minimal gas in the fundus. There is no significant pericholecystic fluid or inflammation. 2. Simple left renal cyst. 3. Bibasilar airspace disease. Liver Ultrasound 04/14/18 12:44 CONCLUSION: 1. Gallbladder contains sludge and stones. However, no additional findings are present to definitively indicate acute cholecystitis. 2. Common bile duct is enlarged but contains no visible stone. Given the pain one could consider MRCP for further evaluation of the common duct stone as a cause for the duct dilatation in right upper quadrant pain. 3. Atrophic right kidney with changes suggesting chronic medical renal disease. There is a complex cystic lesion in the mid kidney and renal sinus measuring up to 3.5 cm. At some point ideally be further characterized with renal protocol MRI with and without intravenous contrast. This should be performed on an elective basis when condition permits. Upper Extremity Ultrasound 04/15/18 00:00 CONCLUSION: Patent left AV fistula. Venous Doppler Study 04/15/18 00:00 CONCLUSION: No evidence of DVT. Chest X-Ray 04/16/18 06:00 CONCLUSION: No significant interval change. No acute cardiopulmonary disease identified. Objective Remarks: GENERAL: 72-year-old female currently orotracheally intubated SKIN: Warm and dry with the exception of cool peripheral fingers left upper extremity dopplerable pulses HEAD: Atraumatic. Normocephalic. EYES: Pupils equal and round about 2 mm bilaterally and reactive. No scleral icterus. No injection or drainage. ENT: No nasal bleeding or discharge. Mucous membranes pink and moist. NECK: Trachea midline. No JVD. CARDIOVASCULAR: Regular rate and rhythm. S1, S2. No S4. Murmur RESPIRATORY: Few fine crackles appreciated bilaterally anteriorly posteriorly. No wheezing GASTROINTESTINAL: Abdomen soft, slight right upper quadrant-tender, nondistended. Hepatic and splenic margins not palpable. Hypoactive bowel sounds appreciated. MUSCULOSKELETAL: Extremities without clubbing, cyanosis, or edema. Left AV fistula positive thrill. Patient has a tunneled right IJ Hemovac catheter in the subclavian left triple-lumen catheter in place NEUROLOGICAL: Arousable availability currently not following commands. Moving all 4 extremities spontaneously Assessment and Plan - Problem List (1) Acute metabolic encephalopathy Code(s): G93.41 - Metabolic encephalopathy Status: Acute (2) Acute hypoxemic respiratory failure Code(s): J96.01 - Acute respiratory failure with hypoxia Status: Acute (3) Septic shock Code(s): A41.9 - Sepsis, unspecified organism; R65.21 - Severe sepsis with septic shock Status: Resolved (4) Lactic acidosis Code(s): E87.2 - Acidosis Status: Acute (5) Non-ST elevated myocardial infarction (non-STEMI) Code(s): I21.4 - Non-ST elevation (NSTEMI) myocardial infarction Status: Acute (6) UTI (urinary tract infection) Code(s): N39.0 - Urinary tract infection, site not specified Status: Acute (7) Liver enzyme elevation Code(s): R74.8 - Abnormal levels of other serum enzymes Status: Acute (8) Emphysematous cholecystitis Code(s): K81.0 - Acute cholecystitis Status: Acute (9) Hyperkalemia Code(s): E87.5 - Hyperkalemia Status: Acute (10) ESRD (end stage renal disease) Code(s): N18.6 - End stage renal disease Status: Chronic (11) HTN (hypertension) Code(s): I10 - Essential (primary) hypertension Status: Chronic (12) Diabetes Code(s): E11.9 - Type 2 diabetes mellitus without complications Status: Chronic (13) GERD (gastroesophageal reflux disease) Code(s): K21.9 - Gastro-esophageal reflux disease without esophagitis Status: Chronic (14) Stroke Code(s): I63.9 - Cerebral infarction, unspecified Status: Chronic (15) TIA (transient ischemic attack) Code(s): G45.9 - Transient cerebral ischemic attack, unspecified Status: Chronic - Assessment and Plan Plan: NEURO/PSYCH: Acute metabolic encephalopathy Old small bilateral cerebellar infarcts. -Propofol and as needed fentanyl for sedation and ventilator synchrony -Encephalopathy seems to be metabolic secondary to severe sepsis -Daily sedation vacation once clinically stable -CT of the head shows old bilateral cerebellar strokes, and nothing acute. Consider MRI brain if no improvement on sedation vacation RESP: Acute hypoxemic respiratory failure -Intubated in the emergency department for lack of airway protection and hypoxia -PRVC/AC, Ventilator bundle, albuterol/ipratropium aerosols every 4 hours with albuterol aerosols every 2 hours as needed -Head of bed at 30 degrees -SBT when appropriate CV: NSTEMI likely type II Hypotension Lactic acidosis History of hypertension -Normal saline IV fluids 500 ml bolus, 2d echo, cardiology consult, serial troponin -Start aspirin 81 mg daily, hold off beta-lenora secondary to hypotension -Cardiology Dr. Fermin consulted NSTEMI most likely type II from sepsis -Avoid IV heparin due to markedly elevated liver enzymes, possible need of surgical intervention -Hold all home antihypertensives (hold nifedipine, clonidine, hydralazine and Lasix) -2d echocardiogram revealed normal left ventricular size. EF 65-70%. Left lipomatous atrial septum,. Trace MR/TR GI: Markedly elevated liver enzymes Probable emphysematous cholecystitis History of GERD -N.p.o., IV pantoprazole -CT abdomen pelvis shows small amount of air in the fundus of the gallbladder, this is concerning for emphysematous cholecystitis given clinical picture -Stat consult to general surgery and discussed with Dr. Cortes. Recommended conservative therapy at the present time. -He requested a stat ultrasound of the right upper quadrant -Gastroenterology consulted with MRCP planned for today 04/16 Renal/: End-stage renal disease -Monitor renal function closely. -Dr. Gillette consulted for emergent hemodialysis on 04/14. Per his schedule -Monitor urine output accurate I's and O's ID: Septic shock Probable emphysematous cholecystitis Possible UTI -Antibiotics with vancomycin and piperacillin/tazobactam -Infectious disease and general surgery consulted -Follow-up blood urine and sputum cultures -Stat ultrasound of the right upper quadrant ordered HEME: Leukocytosis Normocytic anemia -Monitor CBC, coags -Leukocytosis with bandemia due to severe sepsis ENDO/FEN: Hyperphosphatemia Type 2 diabetes -Hyperkalemia treatment as above -Sliding scale insulin PROPH: -Bilateral lower extremity SCDs. Heparin sq/IV Protonix LINES: -Utilize peripheral IVs, left subclavian central line placed by ED physician in the emergency department Level 2 follow-up (6) UTI (urinary tract infection) Qualifiers: Urinary tract infection type: site unspecified Hematuria presence: without hematuria Qualified Code(s): N39.0 - Urinary tract infection, site not specified (11) HTN (hypertension) Qualifiers: Hypertension type: unspecified Qualified Code(s): I10 - Essential (primary) hypertension (12) Diabetes Qualifiers: Diabetes mellitus type: other specified (including YOVANI) Diabetes mellitus jail insulin use: unspecified jail insulin use status Diabetes mellitus complication status: with unspecified complications Qualified Code(s) : E13.8 - Other specified diabetes mellitus with unspecified complications (13) GERD (gastroesophageal reflux disease) Qualifiers: Esophagitis presence: esophagitis presence not specified Qualified Code(s): K21.9 - Gastro-esophageal reflux disease without esophagitis (14) Stroke Qualifiers: CVA mechanism: unspecified Qualified Code(s): I63.9 - Cerebral infarction, unspecified
--- NOTE | 2018-04-16 10:33 | P.PNNP ---
Subjective Interval history: patient is intubated. Sedated. Not on pressors. GI note reviewed. Possible MRCP. Physical Exam Vital signs: Vital Signs 04/15/18 11:00 04/15/18 12:00 04/15/18 13:00 Temperature 100.1 F H Pulse Rate 91 H 94 H 96 H Respiratory Rate 22 16 16 Blood Pressure 120/56 L 123/56 L 170/72 H Pulse Oximetry 96 95 94 L 04/15/18 14:00 04/15/18 14:11 04/15/18 15:00 Temperature Pulse Rate 99 H 100 H 95 H Respiratory Rate 16 16 16 Blood Pressure 175/77 H 183/92 H 123/58 L Pulse Oximetry 96 95 95 04/15/18 15:13 04/15/18 16:00 04/15/18 17:00 Temperature 100.5 F H Pulse Rate 101 H 93 H 89 Respiratory Rate 16 16 16 Blood Pressure 127/60 129/65 Pulse Oximetry 97 95 95 04/15/18 18:00 04/15/18 19:00 04/15/18 20:00 Temperature 99.0 F Pulse Rate 88 89 85 Respiratory Rate 16 16 16 Blood Pressure 130/68 135/65 123/59 L Pulse Oximetry 96 96 96 04/15/18 20:13 04/15/18 21:00 04/15/18 22:00 Temperature Pulse Rate 85 87 90 Respiratory Rate 16 16 16 Blood Pressure 136/67 117/57 L Pulse Oximetry 96 95 96 04/15/18 23:00 04/16/18 00:00 04/16/18 00:10 Temperature 99.1 F Pulse Rate 87 84 83 Respiratory Rate 16 16 16 Blood Pressure 124/61 101/56 L Pulse Oximetry 93 L 95 95 04/16/18 01:00 04/16/18 02:00 04/16/18 03:00 Temperature Pulse Rate 84 83 80 Respiratory Rate 16 16 16 Blood Pressure 122/65 136/66 144/68 H Pulse Oximetry 96 96 95 04/16/18 03:32 04/16/18 04:00 04/16/18 05:00 Temperature 98.5 F Pulse Rate 81 88 86 Respiratory Rate 16 23 16 Blood Pressure 173/77 H 97/54 L Pulse Oximetry 95 94 L 04/16/18 06:00 04/16/18 07:00 04/16/18 07:35 Temperature Pulse Rate 81 80 80 Respiratory Rate 16 16 16 Blood Pressure 106/57 L 129/66 Pulse Oximetry 96 97 96 04/16/18 08:00 04/16/18 09:00 Temperature 99.1 F Pulse Rate 80 80 Respiratory Rate 16 16 Blood Pressure 109/56 L 110/55 L Pulse Oximetry 96 96 Intake & Output 04/15/18 04/16/18 04/16/18 18:59 06:59 18:59 Intake Total 550 / 550 200 / 200 0 / 0 Output Total 50 / 50 190 / 190 Balance 500 / 500 200 / 200 -190 / -190 Weight 67.8 kg Intake: IV 550 / 550 200 / 200 Diprivan 1000 mg/100 ml Inj 1, 200 / 200 100 / 100 000 mg In 100 ml @ 5 MCG/KG/MIN 2.313 mls/hr IV.CONT TITRATE PRN Rx#:[id number] Zosyn 2.25 GM Premix 50 ML @ 100 / 100 100 / 100 100 mls/hr IV.SIG Q6H CIRILO Rx#: [id number] Vancomycin Inj 1,000 MG In NS 250 / 250 Inj 250 ML @ 250 mls/hr IV.SIG ONCE ONE Rx#:[id number] Oral 0 / 0 0 / 0 Output: Urine 0 / 0 0 / 0 Gastric Drainage 50 / 50 190 / 190 Oral Orogastric Tube 50 / 50 190 / 190 Other: # Bowel Movements 0 0 Narrative: GENERAL: Well-nourished, well-developed intubated patient. SKIN: Warm and dry. HEAD: Normocephalic. EYES: No scleral icterus. No injection or drainage. NECK: Supple, trachea midline. No JVD or lymphadenopathy. CARDIOVASCULAR: Regular rate and rhythm without murmurs, gallops, or rubs. RESPIRATORY: Breath sounds equal bilaterally. No accessory muscle use. GASTROINTESTINAL: Abdomen soft, nondistended. EXTREMITIES: Mild edema. Fistula left arm, left hand is cold NEUROLOGICAL: Unresponsive - Urinary Catheter Management Indwelling Urethral Catheter Cath placed during this visit: yes, but has since been removed by the nurse Reason for continuing: Hourly intake/output Insertion date: 04/14/18 Insertion time: 10:35 Removal date: 04/14/18 Removal time: 17:30 Assessment and Plan - Assessment (1) ESRD (end stage renal disease) Code(s): N18.6 - End stage renal disease Status: Chronic Plan: Patient had dialysis on Monday, 2.5 liter ultrafiltrate as tolerated on 1K bath continue supportive care Monday, and Saturdays Monitor progress Gallbladder distention Left hand cold possibly has steal syndrome, due to L arm AVF keep it warm, follow Doppler ultrasound, may need vascular consult (2) Hyperkalemia Code(s): E87.5 - Hyperkalemia Status: Acute Plan: Resolved after dialysis. (3) Acute metabolic encephalopathy Code(s): G93.41 - Metabolic encephalopathy Status: Acute (4) Acute hypoxemic respiratory failure Code(s): J96.01 - Acute respiratory failure with hypoxia Status: Acute Plan: On ventilator (5) Septic shock Code(s): A41.9 - Sepsis, unspecified organism; R65.21 - Severe sepsis with septic shock Status: Resolved Plan: On broad-spectrum antibiotic (6) Emphysematous cholecystitis Code(s): K81.0 - Acute cholecystitis Status: Acute Plan: General surgery following
[2018-04-16] MEDS ORDERED: dilTIAZem Inj 125 MG in Sodium Chlor 0.9% Inj 100 ML IV.CONT PRN ×2 (10:53→12:00)
[2018-04-16] MEDS ORDERED: Vancomycin Inj 1,000 MG in Sodium Chlor 0.9% Inj 250 ML IV.SIG SCH (11:00)
[2018-04-16] MEDS ORDERED: Sod Chloride 0.9% Inj 1,000 ML IV.SIG ONE (11:01)
[2018-04-16] MEDS ORDERED: Phenylephrine Inj 160 MG in Sodium Chlor 0.9% Inj 484 ML IV.CONT PRN (11:03)
[2018-04-16] MEDS ORDERED: Norepinephrine Inj 4 MG in Sodium Chlor 0.9% Inj 246 ML IV.SIG PRN (11:04)
[2018-04-16] MEDS ORDERED: Digoxin Inj 500 MCG/2 ML Ampul IV.PUSH ONE ×2 (11:04→17:00)
--- NOTE | 2018-04-16 11:09 | MR ---
EXAM DATE: 04/16/2018 10:40 AM EST AGE/SEX: 72 years / Female INDICATIONS: Abdominal pain. Abnormal abdomen CT demonstrating distended gallbladder with cholelithia sis as well as a small amount of gas. CLINICAL DATA: This is the patient's initial encounter. Patient reports that signs and symptoms have been present for 3 days and indicates a pain score of Nonresponsive. MEDICAL/SURGICAL HISTORY: Renal disease, end stage. Diabetes mellitus type II. Hypertension. . AV Fistula. COMPARISON: [facility] [place], CT ABDOMEN & PELVIS W/O CONTRAST, 04/14/2018. . TECHNIQUE: Multiplanar, multisequence images of the abdomen were obtained without contrast including dedicated cholangiographic images. FINDINGS: Liver: The liver is homogeneous and normal in signal intensity with no focal defects. Intrahepatic Bile Ducts: There is no intrahepatic biliary ductal dilatation. Common Bile Duct: The common bile duct measures up to approximately 1 cm in greatest diameter. This tapers down normally near the head of the pancreas with no distinct filling defect or mass. No fillin g defects or obstructing lesions are identified. Gallbladder: The gallbladder remains normal in size, shape and wall thickness. There are multiple sm all low-density gallstones layering dependently. There is no pericholecystic fluid. Pancreas: The pancreas is normal in size and signal intensity with several small benign-appearing cy stic structures noted measuring 4 to 5 mm in greatest diameter. The pancreatic duct is within normal limits. There is no inflammatory change. The pancreatic duct is normal in caliber with no filling def ects, or obstructing lesions identified. There is small simple cysts noted in both kidneys. There is a complex right parapelvic cyst which is been present dating back to the prior ultrasound in 2017. CONCLUSION: 1. Cholelithiasis with multiple small gallstones layering dependently. There is no gallbladder wall thickening or inflammatory change. No gas is visualized on the MRI. 2. Common bile duct measuring up to 1 cm with no filling defects or mass. This could represent dista l obstruction or prior passage of stones. 3. Multiple benign-appearing small cystic structures in the pancreas. 4. Bilateral simple renal cysts as well as a more complex right parapelvic cyst. Electronically signed by: Alexis Boss MD 04/16/2018 11:08 AM EST
--- NOTE | 2018-04-16 11:15 | P.PNID ---
Subjective Remarks: is a 72 y/o WF with PMHx of CKD s/p attempt at PD catheter placement due to non compliance, also Left Brachiocephalic AV fistula on 2017 by . Patient was reportedly found with decreased level of consciousness. Room mates do not know much about her medical history and reportedly seen her normal the night prior. Per records EMS gave her Narcan and there was improvement noted. No family nos on chart and old records could not be assessed. Patients past medical records from prior visits could not be accessed by me but patient has CKD and prior Bradycardia on prior admit. Also patient has a history of stroke diabetes hypertension GERD. On admission she had leukocytosis of 12,000 with a left shift. Metabolic acidosis on ABG. Lactic acid 6.Troponins elevated. Cr at 9.6. Normal lipase, LFTs in thousands. CT with air concerning for emphysematous cholecystitis. At the time of my evaluation patient is in IMC, not on pressors, has received fluid bolus amount not documented per RN. She is currently intubated, not sedated, opens eyes, does not follow commands for me. No obvious focal deficit. ID consulted for evaluation and Mment of Severe Sepsis, possible acute cholecystitis. Overnight event reviewed No fevers WBC ok LUE bluish discoloration of fingers. Cool clammy fingers. Opens eyes,not following commands. No rash No diarrhea s/p MRCP Antibiotics: zosyn IV Vanco IV Lines: Line sites ok Past Medical History: reviewed Allergies/Adverse Reactions: Allergies No Known Allergies Allergy (Verified 01/22/18 10:23) Objective Vital Signs 04/15/18 12:00 04/15/18 13:00 04/15/18 14:00 Temperature 100.1 F H Pulse Rate 94 H 96 H 99 H Respiratory Rate 16 16 16 Blood Pressure 123/56 L 170/72 H 175/77 H Pulse Oximetry 95 94 L 96 04/15/18 14:11 04/15/18 15:00 04/15/18 15:13 Temperature Pulse Rate 100 H 95 H 101 H Respiratory Rate 16 16 16 Blood Pressure 183/92 H 123/58 L Pulse Oximetry 95 95 97 04/15/18 16:00 04/15/18 17:00 04/15/18 18:00 Temperature 100.5 F H Pulse Rate 93 H 89 88 Respiratory Rate 16 16 16 Blood Pressure 127/60 129/65 130/68 Pulse Oximetry 95 95 96 04/15/18 19:00 04/15/18 20:00 04/15/18 20:13 Temperature 99.0 F Pulse Rate 89 85 85 Respiratory Rate 16 16 16 Blood Pressure 135/65 123/59 L Pulse Oximetry 96 96 96 04/15/18 21:00 04/15/18 22:00 04/15/18 23:00 Temperature Pulse Rate 87 90 87 Respiratory Rate 16 16 16 Blood Pressure 136/67 117/57 L 124/61 Pulse Oximetry 95 96 93 L 04/16/18 00:00 04/16/18 00:10 04/16/18 01:00 Temperature 99.1 F Pulse Rate 84 83 84 Respiratory Rate 16 16 16 Blood Pressure 101/56 L 122/65 Pulse Oximetry 95 95 96 04/16/18 02:00 04/16/18 03:00 04/16/18 03:32 Temperature Pulse Rate 83 80 81 Respiratory Rate 16 16 16 Blood Pressure 136/66 144/68 H Pulse Oximetry 96 95 04/16/18 04:00 04/16/18 05:00 04/16/18 06:00 Temperature 98.5 F Pulse Rate 88 86 81 Respiratory Rate 23 16 16 Blood Pressure 173/77 H 97/54 L 106/57 L Pulse Oximetry 95 94 L 96 04/16/18 07:00 04/16/18 07:35 04/16/18 08:00 Temperature 99.1 F Pulse Rate 80 80 80 Respiratory Rate 16 16 16 Blood Pressure 129/66 109/56 L Pulse Oximetry 97 96 96 04/16/18 09:00 04/16/18 10:49 Temperature Pulse Rate 80 Respiratory Rate 16 Blood Pressure 110/55 L Pulse Oximetry 96 98 Intake & Output 04/15/18 04/16/18 04/16/18 18:59 06:59 18:59 Intake Total 550 / 550 200 / 200 0 / 0 Output Total 50 / 50 190 / 190 Balance 500 / 500 200 / 200 -190 / -190 Weight 67.8 kg Intake: IV 550 / 550 200 / 200 Diprivan 1000 mg/100 ml Inj 1, 200 / 200 100 / 100 000 mg In 100 ml @ 5 MCG/KG/MIN 2.313 mls/hr IV.CONT TITRATE PRN Rx#:[id number] Zosyn 2.25 GM Premix 50 ML @ 100 / 100 100 / 100 100 mls/hr IV.SIG Q6H CIRILO Rx#: [id number] Vancomycin Inj 1,000 MG In NS 250 / 250 Inj 250 ML @ 250 mls/hr IV.SIG ONCE ONE Rx#:[id number] Oral 0 / 0 0 / 0 Output: Urine 0 / 0 0 / 0 Gastric Drainage 50 / 50 190 / 190 Oral Orogastric Tube 50 / 50 190 / 190 Other: # Bowel Movements 0 0 04/15/18 13:55 Blood - Peripheral Aerobic Blood Culture - Preliminary No growth in 1 day 04/15/18 13:55 Blood - Peripheral Anaerobic Blood Culture - Preliminary No growth in 1 day 04/15/18 11:30 Blood - Line Aerobic Blood Culture - Preliminary No growth in 1 day 04/15/18 11:30 Blood - Line Anaerobic Blood Culture - Preliminary No growth in 1 day 04/14/18 10:20 Blood - Peripheral Aerobic Blood Culture - Preliminary No growth in 2 days 04/14/18 10:20 Blood - Peripheral Anaerobic Blood Culture - Preliminary No growth in 2 days 04/14/18 10:25 Blood - Peripheral Aerobic Blood Culture - Preliminary No growth in 2 days 04/14/18 10:25 Blood - Peripheral Anaerobic Blood Culture - Preliminary No growth in 2 days 04/14/18 10:35 Clean Catch Urine Urine Culture - Final No growth in 48 hours 04/14/18 15:15 Sputum - Endotracheal Gram Stain - Final 04/14/18 15:15 Sputum - Endotracheal Sputum Culture - Preliminary Lab - Hematology Results 04/14/18 04/15/18 04/16/18 10:20 09:40 04:30 WBC 8.4 12.4 H RBC 3.23 L 3.22 L Hgb 10.6 L D 10.3 L Hct 32.4 L 31.6 L MCV 100.1 H D 98.2 MCH 32.7 31.9 MCHC 32.6 32.5 RDW 19.9 H 19.5 H Plt Count 198 217 MPV 8.9 8.8 Prelim Diff (Auto) Slide review pending Slide review pending Neut % (Auto) 86.7 H 81.3 H Lymph % (Auto) 8.1 L 13.6 [place] % (Auto) 4.0 3.5 Eos % (Auto) 0.7 1.0 Baso % (Auto) 0.5 0.6 Neut # (Auto) 7.3 10.1 H Lymph # (Auto) 0.7 L 1.7 [place] # (Auto) 0.3 0.4 Eos # (Auto) 0.1 0.1 Baso # (Auto) 0.0 0.1 WBC Differential Manual diff final Manual diff final Manual diff final Seg Neuts % (Manual) 64 77 H 63 Band Neuts % (Manual) 29 H 16 H 14 H Lymphocytes % (Manual) 6 L 4 L 19 Monocytes % (Manual) 1 2 2 Eosinophils % (Manual) 1 Basophils % (Manual) 1 Metamyelocytes % (Man) 1 Abs Neuts (Manual) 11.6 H 7.9 H 9.5 H Differential Comment . . Toxic Vacuolation Present H Dohle Bodies Present H Present H Platelet Estimate Normal Normal Normal Platelet Morphology Normal Normal Enlarged H Ovalocytes 1+ H 1+ H Lab - Chemistry Results 04/14/18 04/14/18 04/14/18 10:20 14:15 14:15 Sodium Potassium Chloride Carbon Dioxide Anion Gap BUN Creatinine Estimated GFR POC Glucose Random Glucose Lactic Acid 4.3 H* Calcium Phosphorus Magnesium Total Bilirubin AST ALT Alkaline Phosphatase Ammonia Total Creatine Kinase 906 H CK-MB (CK-2) 20.8 H 27.5 H CK-MB (CK-2) % 4.4 H* 3.0 Troponin I 7.12 H* D Total Protein Albumin Lipase 04/14/18 04/14/18 04/15/18 18:00 18:27 00:02 Sodium 143 Potassium 3.6 D Chloride 104 Carbon Dioxide 27.8 D Anion Gap 11 BUN 38 H Creatinine 5.82 H Estimated GFR 7 L POC Glucose 92 126 H Random Glucose 88 Lactic Acid Calcium 7.7 L Phosphorus Magnesium Total Bilirubin 0.6 AST 2182 H ALT 967 H Alkaline Phosphatase 47 Ammonia Total Creatine Kinase 685 H CK-MB (CK-2) 22.4 H CK-MB (CK-2) % 3.3 Troponin I 7.39 H* D Total Protein 8.6 H Albumin 4.3 D Lipase 04/15/18 04/15/18 04/15/18 04:45 05:38 09:40 Sodium 143 Potassium 4.3 Chloride 103 Carbon Dioxide 24.2 Anion Gap 16 H BUN 54 H Creatinine 7.38 H Estimated GFR 5 L POC Glucose 134 H Random Glucose 133 H Lactic Acid 2.2 H Calcium 7.5 L Phosphorus Magnesium Total Bilirubin 0.7 AST 1050 H ALT 806 H Alkaline Phosphatase 45 Ammonia Total Creatine Kinase CK-MB (CK-2) CK-MB (CK-2) % Troponin I Total Protein 8.0 D Albumin 3.5 D Lipase 04/15/18 04/15/18 04/15/18 09:40 11:31 17:35 Sodium Potassium Chloride Carbon Dioxide Anion Gap BUN Creatinine Estimated GFR POC Glucose 115 H 102 Random Glucose Lactic Acid Calcium Phosphorus 6.4 H Magnesium 2.1 Total Bilirubin AST ALT Alkaline Phosphatase Ammonia Total Creatine Kinase CK-MB (CK-2) CK-MB (CK-2) % Troponin I 4.35 H* D Total Protein Albumin Lipase 47 L 04/15/18 04/15/18 04/16/18 22:30 23:17 04:30 Sodium Potassium Chloride Carbon Dioxide Anion Gap BUN Creatinine Estimated GFR POC Glucose 101 Random Glucose Lactic Acid 1.6 1.6 Calcium Phosphorus Magnesium Total Bilirubin AST ALT Alkaline Phosphatase Ammonia Total Creatine Kinase CK-MB (CK-2) CK-MB (CK-2) % Troponin I Total Protein Albumin Lipase 04/16/18 04/16/18 04/16/18 04:30 04:30 08:36 Sodium 141 Potassium 4.5 Chloride 101 Carbon Dioxide 22.8 Anion Gap 17 H BUN 79 H Creatinine 9.39 H Estimated GFR 4 L POC Glucose 91 Random Glucose 94 Lactic Acid Calcium 8.0 L Phosphorus 7.6 H D Magnesium 2.3 Total Bilirubin 0.9 AST 475 H ALT 632 H Alkaline Phosphatase 58 Ammonia Less than 10 L Total Creatine Kinase 506 H CK-MB (CK-2) 6.2 H CK-MB (CK-2) % 1.2 Troponin I Total Protein 7.8 Albumin 3.1 L Lipase Imaging: ITS Impressions Head CT 04/14/18 09:44 CONCLUSION: 1. 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 2. No evidence of acute infarct, hemorrhage, mass or edema. 3. No significant change compared to 04/12/2017. . Abdomen/Pelvis CT 04/14/18 10:59 CONCLUSION: 1. Distended gallbladder with cholelithiasis and minimal gas in the fundus. There is no significant pericholecystic fluid or inflammation. 2. Simple left renal cyst. 3. Bibasilar airspace disease. Liver Ultrasound 04/14/18 12:44 CONCLUSION: 1. Gallbladder contains sludge and stones. However, no additional findings are present to definitively indicate acute cholecystitis. 2. Common bile duct is enlarged but contains no visible stone. Given the pain one could consider MRCP for further evaluation of the common duct stone as a cause for the duct dilatation in right upper quadrant pain. 3. Atrophic right kidney with changes suggesting chronic medical renal disease. There is a complex cystic lesion in the mid kidney and renal sinus measuring up to 3.5 cm. At some point ideally be further characterized with renal protocol MRI with and without intravenous contrast. This should be performed on an elective basis when condition permits. Upper Extremity Ultrasound 04/15/18 00:00 CONCLUSION: Patent left AV fistula. Venous Doppler Study 04/15/18 00:00 CONCLUSION: No evidence of DVT. Chest X-Ray 04/16/18 06:00 CONCLUSION: No significant interval change. No acute cardiopulmonary disease identified. Cholangiopancreatography MRI 04/16/18 07:10 CONCLUSION: 1. Cholelithiasis with multiple small gallstones layering dependently. There is no gallbladder wall thickening or inflammatory change. No gas is visualized on the MRI. 2. Common bile duct measuring up to 1 cm with no filling defects or mass. This could represent distal obstruction or prior passage of stones. 3. Multiple benign-appearing small cystic structures in the pancreas. 4. Bilateral simple renal cysts as well as a more complex right parapelvic cyst. Physical Exam: GENERAL: Sedated, on the vent, NAD SKIN: Cool and dry, no generalized rash HEAD: Atraumatic. Normocephalic. No temporal or scalp tenderness. EYES: Pupils equal round and reactive. Scleral icterus. No injection or drainage. No petechia ENT: Orally intubated NECK: Trachea midline. Supple, nontender, no meningeal signs. CARDIOVASCULAR: HS audible. RESPIRATORY: Air entry equal bilaterally. Clear to auscultation bilaterally. GASTROINTESTINAL: Abdomen soft, ? RUQ tenderness. Scars on abdomen ? PD cath insertion attempts related. MUSCULOSKELETAL: Lower Extremities with no evidence of infection. Left AV fistula site ok. Left fingers bluish hue, cold clammy. NEUROLOGICAL: Sedated Psych could not be assessed IV line sites ok. HD cath and CL site ok. Assessment and Plan - Plan severe Sepsis Probable acute emphysematous cholecystitis (CT findings and RUQ tenderness) CKD Attempted PD catheter placement in 01/2018. AV fistula LUE placed on 01/22/2018. Acute metabolic encephalopathy: sepsis, metabolic. Recs: Continue Zosyn IV DC Vanco IV s/p MRCP results pending. Follow cultures follow clinical course. satinder DUEÑAS I will be OOT from 04/17/2018 to 04/22/2018. Other ID MDs covering for me.
--- NOTE | 2018-04-16 11:35 | P.PNGI ---
Subjective Interval history: Patient intubated and mechanically ventilated Oral gastric tube to low intermittent wall suction Plan MRCP Physical Exam Vital signs: Vital Signs 04/15/18 12:00 04/15/18 13:00 04/15/18 14:00 Temperature 100.1 F H Pulse Rate 94 H 96 H 99 H Respiratory Rate 16 16 16 Blood Pressure 123/56 L 170/72 H 175/77 H Pulse Oximetry 95 94 L 96 04/15/18 14:11 04/15/18 15:00 04/15/18 15:13 Temperature Pulse Rate 100 H 95 H 101 H Respiratory Rate 16 16 16 Blood Pressure 183/92 H 123/58 L Pulse Oximetry 95 95 97 04/15/18 16:00 04/15/18 17:00 04/15/18 18:00 Temperature 100.5 F H Pulse Rate 93 H 89 88 Respiratory Rate 16 16 16 Blood Pressure 127/60 129/65 130/68 Pulse Oximetry 95 95 96 04/15/18 19:00 04/15/18 20:00 04/15/18 20:13 Temperature 99.0 F Pulse Rate 89 85 85 Respiratory Rate 16 16 16 Blood Pressure 135/65 123/59 L Pulse Oximetry 96 96 96 04/15/18 21:00 04/15/18 22:00 04/15/18 23:00 Temperature Pulse Rate 87 90 87 Respiratory Rate 16 16 16 Blood Pressure 136/67 117/57 L 124/61 Pulse Oximetry 95 96 93 L 04/16/18 00:00 04/16/18 00:10 04/16/18 01:00 Temperature 99.1 F Pulse Rate 84 83 84 Respiratory Rate 16 16 16 Blood Pressure 101/56 L 122/65 Pulse Oximetry 95 95 96 04/16/18 02:00 04/16/18 03:00 04/16/18 03:32 Temperature Pulse Rate 83 80 81 Respiratory Rate 16 16 16 Blood Pressure 136/66 144/68 H Pulse Oximetry 96 95 04/16/18 04:00 04/16/18 05:00 04/16/18 06:00 Temperature 98.5 F Pulse Rate 88 86 81 Respiratory Rate 23 16 16 Blood Pressure 173/77 H 97/54 L 106/57 L Pulse Oximetry 95 94 L 96 04/16/18 07:00 04/16/18 07:35 04/16/18 08:00 Temperature 99.1 F Pulse Rate 80 80 80 Respiratory Rate 16 16 16 Blood Pressure 129/66 109/56 L Pulse Oximetry 97 96 96 04/16/18 09:00 04/16/18 10:49 Temperature Pulse Rate 80 Respiratory Rate 16 Blood Pressure 110/55 L Pulse Oximetry 96 98 Intake & Output 04/15/18 04/16/18 04/16/18 18:59 06:59 18:59 Intake Total 550 / 550 200 / 200 0 / 0 Output Total 50 / 50 190 / 190 Balance 500 / 500 200 / 200 -190 / -190 Weight 67.8 kg Intake: IV 550 / 550 200 / 200 Diprivan 1000 mg/100 ml Inj 1, 200 / 200 100 / 100 000 mg In 100 ml @ 5 MCG/KG/MIN 2.313 mls/hr IV.CONT TITRATE PRN Rx#:[id number] Zosyn 2.25 GM Premix 50 ML @ 100 / 100 100 / 100 100 mls/hr IV.SIG Q6H CIRILO Rx#: [id number] Vancomycin Inj 1,000 MG In NS 250 / 250 Inj 250 ML @ 250 mls/hr IV.SIG ONCE ONE Rx#:[id number] Oral 0 / 0 0 / 0 Output: Urine 0 / 0 0 / 0 Gastric Drainage 50 / 50 190 / 190 Oral Orogastric Tube 50 / 50 190 / 190 Other: # Bowel Movements 0 0 - Constitutional chronically ill appearing Comments: Acutely ill intubated and mechanically ventilated - Routine HEENT Exam Head: Present: normocephalic - Routine Respiratory Exam Present: patient mechanically ventilated, CTA bilaterally - Routine Cardiovascular Exam Present: RRR - Routine Abdominal Exam Present: soft, normoactive bowel sounds. Absent: tenderness, distended, guarding, firm - Routine Extremities Exam Absent: edema - Routine Skin Exam Present: dry, warm - Urinary Catheter Management Indwelling Urethral Catheter Cath placed during this visit: yes, but has since been removed by the nurse Reason for continuing: Hourly intake/output Insertion date: 04/14/18 Insertion time: 10:35 Removal date: 04/14/18 Removal time: 17:30 Results - Labs CBC & Chem 7: 04/16/18 04:30 04/16/18 04:30 Laboratory Results - last 24 hr 04/15/18 04/15/18 04/15/18 11:31 17:35 22:30 WBC RBC Hgb Hct MCV MCH MCHC RDW Plt Count MPV Prelim Diff (Auto) Neut % (Auto) Lymph % (Auto) Banks % (Auto) Eos % (Auto) Baso % (Auto) Neut # (Auto) Lymph # (Auto) Banks # (Auto) Eos # (Auto) Baso # (Auto) WBC Differential Seg Neuts % (Manual) Band Neuts % (Manual) Lymphocytes % (Manual) Monocytes % (Manual) Eosinophils % (Manual) Basophils % (Manual) Abs Neuts (Manual) Differential Comment Dohle Bodies Platelet Estimate Platelet Morphology PT INR APTT Sodium Potassium Chloride Carbon Dioxide Anion Gap BUN Creatinine Estimated GFR POC Glucose 115 H 102 Random Glucose Lactic Acid 1.6 Calcium Phosphorus Magnesium Total Bilirubin AST ALT Alkaline Phosphatase Ammonia Total Creatine Kinase CK-MB (CK-2) CK-MB (CK-2) % Total Protein Albumin Random Vancomycin 04/15/18 04/16/18 04/16/18 23:17 04:30 04:30 WBC 12.4 H RBC 3.22 L Hgb 10.3 L Hct 31.6 L MCV 98.2 MCH 31.9 MCHC 32.5 RDW 19.5 H Plt Count 217 MPV 8.8 Prelim Diff (Auto) Slide review pending Neut % (Auto) 81.3 H Lymph % (Auto) 13.6 Banks % (Auto) 3.5 Eos % (Auto) 1.0 Baso % (Auto) 0.6 Neut # (Auto) 10.1 H Lymph # (Auto) 1.7 Banks # (Auto) 0.4 Eos # (Auto) 0.1 Baso # (Auto) 0.1 WBC Differential Manual diff final Seg Neuts % (Manual) 63 Band Neuts % (Manual) 14 H Lymphocytes % (Manual) 19 Monocytes % (Manual) 2 Eosinophils % (Manual) 1 Basophils % (Manual) 1 Abs Neuts (Manual) 9.5 H Differential Comment . Dohle Bodies Present H Platelet Estimate Normal Platelet Morphology Enlarged H PT INR APTT Sodium Potassium Chloride Carbon Dioxide Anion Gap BUN Creatinine Estimated GFR POC Glucose 101 Random Glucose Lactic Acid 1.6 Calcium Phosphorus Magnesium Total Bilirubin AST ALT Alkaline Phosphatase Ammonia Total Creatine Kinase CK-MB (CK-2) CK-MB (CK-2) % Total Protein Albumin Random Vancomycin 12/10/18 12/10/18 12/10/18 04:30 04:30 04:30 WBC RBC Hgb Hct MCV MCH MCHC RDW Plt Count MPV Prelim Diff (Auto) Neut % (Auto) Lymph % (Auto) Banks % (Auto) Eos % (Auto) Baso % (Auto) Neut # (Auto) Lymph # (Auto) Banks # (Auto) Eos # (Auto) Baso # (Auto) WBC Differential Seg Neuts % (Manual) Band Neuts % (Manual) Lymphocytes % (Manual) Monocytes % (Manual) Eosinophils % (Manual) Basophils % (Manual) Abs Neuts (Manual) Differential Comment Dohle Bodies Platelet Estimate Platelet Morphology PT 12.7 H INR 1.3 APTT 44.3 H D Sodium 141 Potassium 4.5 Chloride 101 Carbon Dioxide 22.8 Anion Gap 17 H BUN 79 H Creatinine 9.39 H Estimated GFR 4 L POC Glucose Random Glucose 94 Lactic Acid Calcium 8.0 L Phosphorus 7.6 H D Magnesium 2.3 Total Bilirubin 0.9 AST 475 H ALT 632 H Alkaline Phosphatase 58 Ammonia Less than 10 L Total Creatine Kinase 506 H CK-MB (CK-2) 6.2 H CK-MB (CK-2) % 1.2 Total Protein 7.8 Albumin 3.1 L Random Vancomycin 27.2 04/16/18 08:36 WBC RBC Hgb Hct MCV MCH MCHC RDW Plt Count MPV Prelim Diff (Auto) Neut % (Auto) Lymph % (Auto) Banks % (Auto) Eos % (Auto) Baso % (Auto) Neut # (Auto) Lymph # (Auto) Banks # (Auto) Eos # (Auto) Baso # (Auto) WBC Differential Seg Neuts % (Manual) Band Neuts % (Manual) Lymphocytes % (Manual) Monocytes % (Manual) Eosinophils % (Manual) Basophils % (Manual) Abs Neuts (Manual) Differential Comment Dohle Bodies Platelet Estimate Platelet Morphology PT INR APTT Sodium Potassium Chloride Carbon Dioxide Anion Gap BUN Creatinine Estimated GFR POC Glucose 91 Random Glucose Lactic Acid Calcium Phosphorus Magnesium Total Bilirubin AST ALT Alkaline Phosphatase Ammonia Total Creatine Kinase CK-MB (CK-2) CK-MB (CK-2) % Total Protein Albumin Random Vancomycin Microbiology 04/15/18 13:55 Blood - Peripheral Aerobic Blood Culture - Preliminary No growth in 1 day 04/15/18 13:55 Blood - Peripheral Anaerobic Blood Culture - Preliminary No growth in 1 day 04/15/18 11:30 Blood - Line Aerobic Blood Culture - Preliminary No growth in 1 day 04/15/18 11:30 Blood - Line Anaerobic Blood Culture - Preliminary No growth in 1 day 04/14/18 10:20 Blood - Peripheral Aerobic Blood Culture - Preliminary No growth in 2 days 04/14/18 10:20 Blood - Peripheral Anaerobic Blood Culture - Preliminary No growth in 2 days 04/14/18 10:25 Blood - Peripheral Aerobic Blood Culture - Preliminary No growth in 2 days 04/14/18 10:25 Blood - Peripheral Anaerobic Blood Culture - Preliminary No growth in 2 days 04/14/18 10:35 Clean Catch Urine Urine Culture - Final No growth in 48 hours 04/14/18 15:15 Sputum - Endotracheal Gram Stain - Final 04/14/18 15:15 Sputum - Endotracheal Sputum Culture - Preliminary - Imaging Impressions Upper Extremity Ultrasound 04/15/18 00:00 CONCLUSION: Patent left AV fistula. Chest X-Ray 04/16/18 06:00 CONCLUSION: No significant interval change. No acute cardiopulmonary disease identified. Cholangiopancreatography MRI 04/16/18 07:10 CONCLUSION: 1. Cholelithiasis with multiple small gallstones layering dependently. There is no gallbladder wall thickening or inflammatory change. No gas is visualized on the MRI. 2. Common bile duct measuring up to 1 cm with no filling defects or mass. This could represent distal obstruction or prior passage of stones. 3. Multiple benign-appearing small cystic structures in the pancreas. 4. Bilateral simple renal cysts as well as a more complex right parapelvic cyst. Assessment and Plan - Plan This is a 72-year-old female who entered the hospital on 04/14/2018 after being found unresponsive per her roommate. According to the record and staff patient was intubated in the emergency room setting and received multiple lab work and aggressive therapy there was a CAT scan that showed distended gallbladder with cholelithiasis and liver ultrasound that showed positive cholelithiasis and gallbladder sludge and a small amount of air in the fundus of the gallbladder. Lab work was reviewed which showed initial hemoglobin 12.6 now decreased to 10.6 , initial WBC count 12.5 now normalized to 8.4, PT/INR 1.3, lipase 47, bilirubin 0.7, AST 1050, ALT 8:06 AM positive troponin IV 0.35. Gastroenterology was consulted to assist in her plan of care but it is noted after examination of the patient and per the record patient is acutely critically ill in the intensive care setting. There is currently no family present but according to staff patient has a daughter and a son. Transaminitis, these elevated liver enzymes could be related to shock liver since patient was found unresponsive. She will need continuing monitoring of these labs for any acute changes Anemia current hemoglobin 10.6 which is a mild decrease from admission. Patient has NG tube which shows dark bilious fluid return but also some possible coffee-ground debris noted initially in the NG tube. We will need to rule out any GI bleeding Ultrasound of the liver did show positive gallstones and sludge and recommendation was for MRCP but this will need to be done when patient is stable. MRCP has been ordered but probably on hold for this p.m. History of end-stage renal disease on hemodialysis Monday and Monday schedule. Patient has had cultures done for possible sepsis Left upper extremity is cool to the touch right upper extremity is warm, both lower extremities are cool. Possible non-STEMI cardiology involved Possible gallbladder disease rule out Ultrasound gallbladder contains sludge and stones. However, no additional findings are present to definitively indicate acute cholecystitis. Common bile duct is enlarged but contains no visible stone. Given the pain one could consider MRCP for further evaluation of the common duct stone as a cause for the duct dilatation in right upper quadrant pain. Atrophic right kidney with changes suggesting chronic medical renal disease. There is a complex cystic lesion in the mid kidney and renal sinus measuring up to 3.5 cm. At some point ideally be further characterized with renal protocol MRI with and without intravenous contrast. This should be performed on an elective basis when condition permits. 04/16/2018 -Patient intubated and mechanically ventilated. Plan for MRCP today. Orogastric tube to low intermittent suction 100 mL's of dark green bilious fluid noted. No obvious bleeding noted. -Transaminitis-likely due to shock liver as patient was found unresponsive, will continue to monitor LFTs -WBC 12.4 hemoglobin 10.3 hematocrit 31.6 INR 1.3 total bilirubin 0.9 AST 475 ALT 632 alk phos 58 ammonia less than 10 -04/16/2018 MRCP revealed the following findings: 1. Cholelithiasis with multiple small gallstones layering dependently. There is no gallbladder wall thickening or inflammatory change. No gas is visualized on the MRI. 2. Common bile duct measuring up to 1 cm with no filling defects or mass. This could represent distal obstruction or prior passage of stones. 3. Multiple benign-appearing small cystic structures in the pancreas. 4. Bilateral simple renal cysts as well as a more complex right parapelvic cyst. Plan N.p.o. Orogastric tube to low intermittent wall suction Monitor labs, hemoglobin and hematocrit Continue to monitor liver function-possible shock liver Need for ERCP will be based on progression of liver profile Supportive care Further recommendations to follow This patient has been seen by myself and Dr. Catherine and this note is written on his behalf - Attending Attestation Dr. Catherine
--- NOTE | 2018-04-16 11:54 | P.PCN ---
Date of procedure: 04/16/18 Pre-op diagnosis: Hypotension/A. fib Post-op diagnosis: same (Hypotension/A. fib) Procedure: DATE: 04/16/2018 PROCEDURE: Left femoral arterial catheter placement INDICATION: Hypotension DETAILS OF PROCEDURE The patient was placed in supine position. The skin was cleansed with Chloraprep. Additional barrier precautions included large sterile drape, sterile gloves, sterile gown, face mask, and hat. 1% lidocaine was used for local anesthesia. Under direct ultrasound guidance and on the third attempt, the artery was accessed with an introducer needle. The guide wire was advanced. Using Seldinger technique 20 gauge arterial catheter was placed. The guide wire was removed. The catheter was connected to a transducer line and flushed with saline. The video monitor displayed normal arterial wave forms. The catheter was secured with 2-0 silk. A sterile dressing with antibiotic disc was applied. ESTIMATED BLOOD LOSS: minimal COMPLICATIONS: None
--- NOTE | 2018-04-16 12:20 | P.PNCA ---
Subjective Interval history: Intubated. Sedated. Medications and Allergies Active Medications: Active Medications Acetaminophen (Tylenol) 650 mg PO UNSCH PRN PRN Reason: SEE LABEL COMMENTS Albuterol (Duoneb Neb (Princess)) 1 ampul NEB Q4HR NEB [facility] Last Admin: 04/16/18 11:29 Dose: Not Given Albuterol (Albuterol Neb (Prn)) 2.5 mg NEB Q2HR NEB PRN PRN Reason: DYSPNEA Artificial Tears (Tears Naturale Opth Drops) 1 drop EACH EYE Q8H [facility] Last Admin: 04/16/18 04:38 Dose: 1 drop Aspirin (Aspirin Chew) 81 mg PO DAILY [facility] Last Admin: 04/16/18 08:39 Dose: 81 mg Chlorhexidine Gluconate (Chlorhexidine 2% Cloth) 3 pack TOPICAL DAILY@0400 [facility] Stop: 04/20/18 03:59 Last Admin: 04/16/18 04:38 Dose: 3 pack Chlorhexidine Gluconate (Chlorhexidine 2% Cloth) 3 pack TOPICAL DAILY@0400 PRN PRN Reason: Extra cloth needed Stop: 04/20/18 03:59 Chlorhexidine Gluconate (Peridex 0.12% Oral Kit) 15 ml OROPHARYNG BID@0800, 2000 [facility] Last Admin: 04/16/18 08:39 Dose: 15 ml Clonidine HCl (Catapres) 0.1 mg PO UNSCH PRN PRN Reason: SEE LABEL COMMENTS Dextrose (D50w Vial) 50 ml IV.PUSH UNSCH PRN PRN Reason: PER HYPOGLYCEMIA PROTOCOL Digoxin (Lanoxin Inj) 250 mcg IV.PUSH ONCE ONE Stop: 04/16/18 17:01 Diphenhydramine HCl (Benadryl) 25 mg PO UNSCH PRN PRN Reason: SEE LABEL COMMENTS Gelatin (Gelfoam 12 Mm/7 Mm Topical) 1 foam TOPICAL PRN PRN PRN Reason: help stop bleeding from site Gentamicin Sulfate (Gentamicin Inj) 20 mg OTHER WITH DIALYSIS PRN PRN Reason: Dwell Gentamycin Lock Last Admin: 04/14/18 15:20 Dose: 20 mg Glucagon (Glucagon Inj) 1 mg OTHER PRN PRN PRN Reason: for Hypoglycemia Protocol Heparin Sodium (Porcine) (Heparin Inj) 5,000 units SQ Q12HR [facility] Last Admin: 04/16/18 08:39 Dose: 5,000 units Heparin Sodium (Porcine) (Heparin Inj) 8,000 units OTHER WITH DIALYSIS PRN PRN Reason: for machine prime Heparin Sodium (Porcine) (Heparin Inj) 1,000 units OTHER WITH DIALYSIS PRN PRN Reason: Dwell Heparin to Fill Catheter Last Admin: 04/14/18 15:19 Dose: 1,000 units Propofol (Diprivan 1000 Mg/100 Ml Inj) 1,000 mg in 100 mls @ 2.313 mls/hr IV.CONT TITRATE PRN; Protocol PRN Reason: Per Protocol Last Admin: 04/16/18 04:38 Dose: 20 mcg/kg/min, 9.25 mls/hr Piperacillin/Tazobactam/Dextrose (Zosyn 2.25 Gm Premix) 50 mls @ 100 mls/hr IV.SIG Q6H [facility] Last Admin: 04/16/18 08:39 Dose: 100 mls/hr Norepinephrine Bitartrate 16 (mg/ Sodium Chloride) 250 mls @ 1.87 mls/hr IV.CONT TITRATE PRN; Protocol PRN Reason: See Protocol Sodium Chloride (Ns Inj) 1,000 mls @ 0 mls/hr OTHER .Q0M PRN PRN Reason: for prime and rinse back Sodium Chloride (Ns Inj) 1,000 mls @ 200 mls/hr OTHER .Q5H PRN PRN Reason: for dialyzer flush PRN Sodium Chloride (Ns Inj) 1,000 mls @ 0 mls/hr IV.CONT .Q0M PRN PRN Reason: hypotension / volume replace Albumin Human (Flexbumin 25% Inj) 100 mls @ 60 mls/hr IV.SIG WITH DIALYSIS PRN PRN Reason: hypotension / volume replace Last Infusion: 04/14/18 15:35 Dose: Infused Fentanyl (Fentanyl 10 Mcg/Ml Premix Drip) 2,500 mcg in 250 mls @ 5 mls/hr IV.SIG TITRATE PRN; Protocol PRN Reason: Per Protocol Last Admin: 04/15/18 14:47 Dose: 50 mcg/hr, 5 mls/hr Diltiazem HCl 125 mg/ Sodium (Chloride) 125 mls @ 5 mls/hr IV.CONT TITRATE PRN ; Protocol PRN Reason: Per Protocol Diltiazem HCl 125 mg/ Sodium (Chloride) 125 mls @ 5 mls/hr IV.CONT TITRATE PRN ; Protocol PRN Reason: Per Protocol Norepinephrine Bitartrate 4 mg (/ Sodium Chloride) 250 mls @ 7.5 mls/hr IV.SIG TITRATE PRN; Protocol PRN Reason: Per Protocol Phenylephrine HCl 160 mg/ (Sodium Chloride) 500 mls @ 7.5 mls/hr IV.CONT TITRATE PRN; Protocol PRN Reason: See protol Insulin Aspart (Novolog Insulin Correctional Sugar Inj) 0 unit SQ Q6HR [facility]; Protocol Last Admin: 04/16/18 06:15 Dose: Not Given Mannitol (Mannitol Inj) 12.5 gm IV.PUSH UNSCH PRN PRN Reason: hypotension / volume replace Miscellaneous Medication () 1 each OROPHARYNG 0000,0400,1200,1600 [facility] Last Admin: 04/16/18 04:38 Dose: 1 each Mupirocin (Bactroban 2% Nasal Oint) 1 applicatio EACH NARE BID [facility] Last Admin: 04/16/18 08:39 Dose: 1 applicatio Nitroglycerin (Nitrostat Sl) 0.4 mg SL Q5M PRN PRN Reason: CHEST PAIN Ondansetron HCl (Zofran Inj) 4 mg IV.PUSH UNSCH PRN PRN Reason: NAUSEA OR VOMITING Pantoprazole Sodium (Protonix Inj) 40 mg IV.PUSH Q12H [facility] Last Admin: 04/16/18 04:39 Dose: 40 mg Sodium Chloride (Ns Flush) 5 ml IV.FLUSH PRN PRN PRN Reason: flush each lumen during HD Terbutaline Sulfate (Brethine Inj) 1 mg SQ UNSCH PRN PRN Reason: For Extravasation Terbutaline Sulfate (Brethine Inj) 1 mg SQ UNSCH PRN PRN Reason: For Extravasation Allergies Allergy/AdvReac Type Severity Reaction Status Date / Time No Known Allergies Allergy Verified 01/22/18 10:23 Home Medications Medication Instructions Recorded Confirmed Type clonidine HCl 0.1 mg PO DAILY PRN 01/22/18 01/22/18 History furosemide 80 mg PO DAILY 01/22/18 01/22/18 History hydralazine 50 mg PO QID 01/22/18 01/22/18 History hydrocodone-acetaminophen [[place]] 1 tab PO Q4-6H PRN 01/22/18 01/22/18 History nifedipine 90 mg PO DAILY 01/22/18 01/22/18 History pantoprazole [Protonix] 40 mg PO DAILY 01/22/18 01/22/18 History Physical Exam Vital signs: Vital Signs 04/15/18 13:00 04/15/18 14:00 04/15/18 14:11 Temperature Pulse Rate 96 H 99 H 100 H Respiratory Rate 16 16 16 Blood Pressure 170/72 H 175/77 H 183/92 H Pulse Oximetry 94 L 96 95 04/15/18 15:00 04/15/18 15:13 04/15/18 16:00 Temperature 100.5 F H Pulse Rate 95 H 101 H 93 H Respiratory Rate 16 16 16 Blood Pressure 123/58 L 127/60 Pulse Oximetry 95 97 95 04/15/18 17:00 04/15/18 18:00 04/15/18 19:00 Temperature Pulse Rate 89 88 89 Respiratory Rate 16 16 16 Blood Pressure 129/65 130/68 135/65 Pulse Oximetry 95 96 96 04/15/18 20:00 04/15/18 20:13 04/15/18 21:00 Temperature 99.0 F Pulse Rate 85 85 87 Respiratory Rate 16 16 16 Blood Pressure 123/59 L 136/67 Pulse Oximetry 96 96 95 04/15/18 22:00 04/15/18 23:00 04/16/18 00:00 Temperature 99.1 F Pulse Rate 90 87 84 Respiratory Rate 16 16 16 Blood Pressure 117/57 L 124/61 101/56 L Pulse Oximetry 96 93 L 95 04/16/18 00:10 04/16/18 01:00 04/16/18 02:00 Temperature Pulse Rate 83 84 83 Respiratory Rate 16 16 16 Blood Pressure 122/65 136/66 Pulse Oximetry 95 96 96 04/16/18 03:00 04/16/18 03:32 04/16/18 04:00 Temperature 98.5 F Pulse Rate 80 81 88 Respiratory Rate 16 16 23 Blood Pressure 144/68 H 173/77 H Pulse Oximetry 95 95 04/16/18 05:00 04/16/18 06:00 04/16/18 07:00 Temperature Pulse Rate 86 81 80 Respiratory Rate 16 16 16 Blood Pressure 97/54 L 106/57 L 129/66 Pulse Oximetry 94 L 96 97 04/16/18 07:35 04/16/18 08:00 04/16/18 09:00 Temperature 99.1 F Pulse Rate 80 80 80 Respiratory Rate 16 16 16 Blood Pressure 109/56 L 110/55 L Pulse Oximetry 96 96 96 04/16/18 10:49 04/16/18 11:09 Temperature Pulse Rate Respiratory Rate 16 Blood Pressure Pulse Oximetry 98 96 Intake & Output 04/15/18 04/16/18 04/16/18 18:59 06:59 18:59 Intake Total 550 / 550 200 / 200 0 / 0 Output Total 50 / 50 190 / 190 Balance 500 / 500 200 / 200 -190 / -190 Weight 67.8 kg Intake: IV 550 / 550 200 / 200 Diprivan 1000 mg/100 ml Inj 1, 200 / 200 100 / 100 000 mg In 100 ml @ 5 MCG/KG/MIN 2.313 mls/hr IV.CONT TITRATE PRN Rx#:[id number] Zosyn 2.25 GM Premix 50 ML @ 100 / 100 100 / 100 100 mls/hr IV.SIG Q6H [facility]INCESS Rx#: [id number] Vancomycin Inj 1,000 MG In NS 250 / 250 Inj 250 ML @ 250 mls/hr IV.SIG ONCE ONE Rx#:[id number] Oral 0 / 0 0 / 0 Output: Urine 0 / 0 0 / 0 Gastric Drainage 50 / 50 190 / 190 Oral Orogastric Tube 50 / 50 190 / 190 Other: # Bowel Movements 0 0 - Constitutional Comments: Intubated. Sedated. - Routine Neck Exam Absent: JVD - Routine Respiratory Exam Present: CTA bilaterally - Routine Cardiovascular Exam Present: S1, S2, tachycardia. Absent: murmur, gallop - Routine Abdominal Exam Present: soft. Absent: organomegaly - Routine Extremities Exam Absent: cyanosis, clubbing, edema - Urinary Catheter Management Indwelling Urethral Catheter Cath placed during this visit: yes, but has since been removed by the nurse Reason for continuing: Hourly intake/output Insertion date: 04/14/18 Insertion time: 10:35 Removal date: 04/14/18 Removal time: 17:30 Results 04/16/18 04:30 04/16/18 04:30 Cardiac Enzymes 04/14/18 04/14/18 04/15/18 Range/Units 14:15 18:00 04:45 AST 2182 H 1050 H (15-37) U/L CK-MB (CK-2) 27.5 H 22.4 H (0.5-3.6) ng/mL Troponin I 7.12 H* D 7.39 H* D (0.02-0.05) ng/mL 04/15/18 04/16/18 Range/Units 09:40 04:30 AST 475 H (15-37) U/L CK-MB (CK-2) 6.2 H (0.5-3.6) ng/mL Troponin I 4.35 H* D (0.02-0.05) ng/mL Coagulation 04/16/18 Range/Units 04:30 PT 12.7 H (9.8-11.6) sec APTT 44.3 H D (23.4-31.7) sec CBC 04/15/18 04/16/18 Range/Units 09:40 04:30 WBC 8.4 12.4 H (4.0-11.0) th/mm3 RBC 3.23 L 3.22 L (4.00-5.30) mil/mm3 Hgb 10.6 L D 10.3 L (11.6-15.3) gm/dL Hct 32.4 L 31.6 L (35.0-46.0) % Plt Count 198 217 (150-450) th/mm3 Neut # (Auto) 7.3 10.1 H (1.8-7.7) th/mm3 Lymph # (Auto) 0.7 L 1.7 (1.0-4.8) th/mm3 [place] # (Auto) 0.3 0.4 (0.0-0.9) th/mm3 Eos # (Auto) 0.1 0.1 (0.0-0.4) th/mm3 Baso # (Auto) 0.0 0.1 (0.0-0.2) th/mm3 Comprehensive Metabolic Panel 04/14/18 04/15/18 04/16/18 Range/Units 18:00 04:45 04:30 Sodium 143 143 141 (136-145) meq/L Potassium 3.6 D 4.3 4.5 (3.5-5.1) meq/L Chloride 104 103 101 (98-107) meq/L Carbon Dioxide 27.8 D 24.2 22.8 (21.0-32.0) meq/L BUN 38 H 54 H 79 H (7-18) mg/dL Creatinine 5.82 H 7.38 H 9.39 H (0.50-1.00) mg/dL Calcium 7.7 L 7.5 L 8.0 L (8.5-10.1) mg/dL AST 2182 H 1050 H 475 H (15-37) U/L ALT 967 H 806 H 632 H (10-53) U/L Alkaline Phosphatase 47 45 58 (45-117) U/L Total Protein 8.6 H 8.0 D 7.8 (6.4-8.2) g/dL Albumin 4.3 D 3.5 D 3.1 L (3.4-5.0) g/dL Intake and Output 04/15/18 04/16/18 04/16/18 22:59 06:59 14:59 Intake Total 450 / 450 150 / 150 0 / 0 Output Total 50 / 50 190 / 190 Balance 400 / 400 150 / 150 -190 / -190 Intake: IV 450 / 450 150 / 150 Diprivan 1000 mg/100 ml Inj 1, 100 / 100 100 / 100 000 mg In 100 ml @ 5 MCG/KG/MIN 2.313 mls/hr IV.CONT TITRATE PRN Rx#:[id number] Zosyn 2.25 GM Premix 50 ML @ 100 / 100 50 / 50 100 mls/hr IV.SIG Q6H [facility]ESS Rx#: [id number] Vancomycin Inj 1,000 MG In NS 250 / 250 Inj 250 ML @ 250 mls/hr IV.SIG ONCE ONE Rx#:[id number] Oral 0 / 0 0 / 0 Output: Urine 0 / 0 0 / 0 Gastric Drainage 50 / 50 190 / 190 Oral Orogastric Tube 50 / 50 190 / 190 Other: # Bowel Movements 0 0 Weight 67.8 kg - Imaging and Cardiology Imaging: Impressions Liver Ultrasound 04/14/18 12:44 CONCLUSION: 1. Gallbladder contains sludge and stones. However, no additional findings are present to definitively indicate acute cholecystitis. 2. Common bile duct is enlarged but contains no visible stone. Given the pain one could consider MRCP for further evaluation of the common duct stone as a cause for the duct dilatation in right upper quadrant pain. 3. Atrophic right kidney with changes suggesting chronic medical renal disease. There is a complex cystic lesion in the mid kidney and renal sinus measuring up to 3.5 cm. At some point ideally be further characterized with renal protocol MRI with and without intravenous contrast. This should be performed on an elective basis when condition permits. Upper Extremity Ultrasound 04/15/18 00:00 CONCLUSION: Patent left AV fistula. Venous Doppler Study 04/15/18 00:00 CONCLUSION: No evidence of DVT. Chest X-Ray 04/16/18 06:00 CONCLUSION: No significant interval change. No acute cardiopulmonary disease identified. Cholangiopancreatography MRI 04/16/18 07:10 CONCLUSION: 1. Cholelithiasis with multiple small gallstones layering dependently. There is no gallbladder wall thickening or inflammatory change. No gas is visualized on the MRI. 2. Common bile duct measuring up to 1 cm with no filling defects or mass. This could represent distal obstruction or prior passage of stones. 3. Multiple benign-appearing small cystic structures in the pancreas. 4. Bilateral simple renal cysts as well as a more complex right parapelvic cyst. Assessment and Plan - Assessment (1) Non-ST elevated myocardial infarction (non-STEMI) Code(s): I21.4 - Non-ST elevation (NSTEMI) myocardial infarction Status: Acute Plan: Possible NSTEMI, Type II AR. Echo reviewed, shows excellent LV function without wall motion abnormalities. Recommend daily aspirin, consider beta lenora eventually. (2) Paroxysmal atrial flutter Code(s): I48.92 - Unspecified atrial flutter Status: Acute Plan: Possible atrial flutter with 2:1 AV conduction on monitoring this morning. EKG pending. RECOMMEND IV Cardizem, observe for bradyarrhythmias. - Plan Code Status: full code
--- NOTE | 2018-04-16 12:38 | P.CONVS ---
History of Present Illness Service: Vascular surgery Consult date: 04/16/18 Requesting Physician: Nico Fisher Reason for Consult: Access-related hand ischemia Primary Care Provider: UNKNOWN Chief Complaint: AMS, septic shock History of Present Illness: 72 yo female s/p L UE brachiobasilic AVF several months ago (01/22/18) as a planned first stage procedure. She presented through ED several days ago septic from unclear source, is intubated and today, went into afib/RVR. Asked to eval patient because of cool LEFT hand. Obviously history obtained via chart as pt is intubated. Per ICU team, she is able to move her hand and there is no evidence that she had any hand issues When I last saw her in clinic (03/09) she had full hand strength and was to return to clinic with an AVF duplex in April to assess access maturation. While an inpatient, there is suggestion of cholecystitis but MRCP negative except enlarged CBD. 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 - Medical History Medical History: Medical History (Last Reviewed 04/16/18 @ 12:34 by Wili Wu MD) AV fistula History of MRSA infection Onset Date: ~04/14/18 Diabetes Dialysis catheter clot or failure End stage renal disease GERD (gastroesophageal reflux disease) Hypertension Peritoneal dialysis catheter in place Stroke TIA (transient ischemic attack) - Family History Family History: Family History (Last Updated 04/14/18 @ 16:27 by Sheila Gillette MD) Other Family history unobtainable - Tobacco History Second Hand Smoke Exposure: No Smoking Status: Unknown if ever smoked - Alcohol History How Often Do You Have a Drink Containing Alcohol: Unable to Obtain - Substance Use History Substance History: Unable to Obtain - Travel History Recent Travel in the [place] Within the Last 8 Weeks: No Recent Travel Out of the Country Within the Last 8 Weeks: No - Immunization History Tetanus Immunization: Unsure Hx Influenza Vaccine This Season: Unable to Assess Medications and Allergies Active Medications: Active Medications Acetaminophen (Tylenol) 650 mg PO UNSCH PRN PRN Reason: SEE LABEL COMMENTS Albuterol (Duoneb Neb (Princess)) 1 ampul NEB Q4HR NEB PRINCESS Last Admin: 04/16/18 11:29 Dose: Not Given Albuterol (Albuterol Neb (Prn)) 2.5 mg NEB Q2HR NEB PRN PRN Reason: DYSPNEA Artificial Tears (Tears Naturale Opth Drops) 1 drop EACH EYE Q8H [facility] Last Admin: 04/16/18 12:16 Dose: 1 drop Aspirin (Aspirin Chew) 81 mg PO DAILY [facility] Last Admin: 04/16/18 08:39 Dose: 81 mg Chlorhexidine Gluconate (Chlorhexidine 2% Cloth) 3 pack TOPICAL DAILY@0400 PRINCESS Stop: 04/20/18 03:59 Last Admin: 04/16/18 04:38 Dose: 3 pack Chlorhexidine Gluconate (Chlorhexidine 2% Cloth) 3 pack TOPICAL DAILY@0400 PRN PRN Reason: Extra cloth needed Stop: 04/20/18 03:59 Chlorhexidine Gluconate (Peridex 0.12% Oral Kit) 15 ml OROPHARYNG BID@0800, 2000 [facility] Last Admin: 04/16/18 08:39 Dose: 15 ml Clonidine HCl (Catapres) 0.1 mg PO UNSCH PRN PRN Reason: SEE LABEL COMMENTS Dextrose (D50w Vial) 50 ml IV.PUSH UNSCH PRN PRN Reason: PER HYPOGLYCEMIA PROTOCOL Digoxin (Lanoxin Inj) 250 mcg IV.PUSH ONCE ONE Stop: 04/16/18 17:01 Diphenhydramine HCl (Benadryl) 25 mg PO UNSCH PRN PRN Reason: SEE LABEL COMMENTS Gelatin (Gelfoam 12 Mm/7 Mm Topical) 1 foam TOPICAL PRN PRN PRN Reason: help stop bleeding from site Gentamicin Sulfate (Gentamicin Inj) 20 mg OTHER WITH DIALYSIS PRN PRN Reason: Dwell Gentamycin Lock Last Admin: 04/14/18 15:20 Dose: 20 mg Glucagon (Glucagon Inj) 1 mg OTHER PRN PRN PRN Reason: for Hypoglycemia Protocol Heparin Sodium (Porcine) (Heparin Inj) 5,000 units SQ Q12HR [facility] Last Admin: 04/16/18 08:39 Dose: 5,000 units Heparin Sodium (Porcine) (Heparin Inj) 8,000 units OTHER WITH DIALYSIS PRN PRN Reason: for machine prime Heparin Sodium (Porcine) (Heparin Inj) 1,000 units OTHER WITH DIALYSIS PRN PRN Reason: Dwell Heparin to Fill Catheter Last Admin: 04/14/18 15:19 Dose: 1,000 units Propofol (Diprivan 1000 Mg/100 Ml Inj) 1,000 mg in 100 mls @ 2.313 mls/hr IV.CONT TITRATE PRN; Protocol PRN Reason: Per Protocol Last Admin: 04/16/18 12:21 Dose: 20 mcg/kg/min, 9.25 mls/hr Piperacillin/Tazobactam/Dextrose (Zosyn 2.25 Gm Premix) 50 mls @ 100 mls/hr IV.SIG Q6H PRINCESS Last Admin: 04/16/18 08:39 Dose: 100 mls/hr Norepinephrine Bitartrate 16 (mg/ Sodium Chloride) 250 mls @ 1.87 mls/hr IV.CONT TITRATE PRN; Protocol PRN Reason: See Protocol Sodium Chloride (Ns Inj) 1,000 mls @ 0 mls/hr OTHER .Q0M PRN PRN Reason: for prime and rinse back Sodium Chloride (Ns Inj) 1,000 mls @ 200 mls/hr OTHER .Q5H PRN PRN Reason: for dialyzer flush PRN Sodium Chloride (Ns Inj) 1,000 mls @ 0 mls/hr IV.CONT .Q0M PRN PRN Reason: hypotension / volume replace Albumin Human (Flexbumin 25% Inj) 100 mls @ 60 mls/hr IV.SIG WITH DIALYSIS PRN PRN Reason: hypotension / volume replace Last Infusion: 04/14/18 15:35 Dose: Infused Fentanyl (Fentanyl 10 Mcg/Ml Premix Drip) 2,500 mcg in 250 mls @ 5 mls/hr IV.SIG TITRATE PRN; Protocol PRN Reason: Per Protocol Last Admin: 04/15/18 14:47 Dose: 50 mcg/hr, 5 mls/hr Diltiazem HCl 125 mg/ Sodium (Chloride) 125 mls @ 5 mls/hr IV.CONT TITRATE PRN ; Protocol PRN Reason: Per Protocol Diltiazem HCl 125 mg/ Sodium (Chloride) 125 mls @ 5 mls/hr IV.CONT TITRATE PRN ; Protocol PRN Reason: Per Protocol Norepinephrine Bitartrate 4 mg (/ Sodium Chloride) 250 mls @ 7.5 mls/hr IV.SIG TITRATE PRN; Protocol PRN Reason: Per Protocol Phenylephrine HCl 160 mg/ (Sodium Chloride) 500 mls @ 7.5 mls/hr IV.CONT TITRATE PRN; Protocol PRN Reason: See protol Insulin Aspart (Novolog Insulin Correctional Sugar Inj) 0 unit SQ Q6HR [facility]; Protocol Last Admin: 04/16/18 12:17 Dose: Not Given Mannitol (Mannitol Inj) 12.5 gm IV.PUSH UNSCH PRN PRN Reason: hypotension / volume replace Miscellaneous Medication () 1 each OROPHARYNG 0000,0400,1200,1600 [facility] Last Admin: 04/16/18 12:22 Dose: 1 each Mupirocin (Bactroban 2% Nasal Oint) 1 applicatio EACH NARE BID [facility] Last Admin: 04/16/18 08:39 Dose: 1 applicatio Nitroglycerin (Nitrostat Sl) 0.4 mg SL Q5M PRN PRN Reason: CHEST PAIN Ondansetron HCl (Zofran Inj) 4 mg IV.PUSH UNSCH PRN PRN Reason: NAUSEA OR VOMITING Pantoprazole Sodium (Protonix Inj) 40 mg IV.PUSH Q12H [facility] Last Admin: 04/16/18 04:39 Dose: 40 mg Sodium Chloride (Ns Flush) 5 ml IV.FLUSH PRN PRN PRN Reason: flush each lumen during HD Terbutaline Sulfate (Brethine Inj) 1 mg SQ UNSCH PRN PRN Reason: For Extravasation Terbutaline Sulfate (Brethine Inj) 1 mg SQ UNSCH PRN PRN Reason: For Extravasation Allergies Allergy/AdvReac Type Severity Reaction Status Date / Time No Known Allergies Allergy Verified 01/22/18 10:23 Home Medications Medication Instructions Recorded Confirmed Type clonidine HCl 0.1 mg PO DAILY PRN 01/22/18 01/22/18 History furosemide 80 mg PO DAILY 01/22/18 01/22/18 History hydralazine 50 mg PO QID 01/22/18 01/22/18 History hydrocodone-acetaminophen [Tobias] 1 tab PO Q4-6H PRN 01/22/18 01/22/18 History nifedipine 90 mg PO DAILY 01/22/18 01/22/18 History pantoprazole [Protonix] 40 mg PO DAILY 01/22/18 01/22/18 History Physical Exam Vital Signs / I&O: Vital Signs 04/15/18 13:00 04/15/18 14:00 04/15/18 14:11 Temperature Pulse Rate 96 H 99 H 100 H Respiratory Rate 16 16 16 Blood Pressure 170/72 H 175/77 H 183/92 H Pulse Oximetry 94 L 96 95 04/15/18 15:00 04/15/18 15:13 04/15/18 16:00 Temperature 100.5 F H Pulse Rate 95 H 101 H 93 H Respiratory Rate 16 16 16 Blood Pressure 123/58 L 127/60 Pulse Oximetry 95 97 95 04/15/18 17:00 04/15/18 18:00 04/15/18 19:00 Temperature Pulse Rate 89 88 89 Respiratory Rate 16 16 16 Blood Pressure 129/65 130/68 135/65 Pulse Oximetry 95 96 96 04/15/18 20:00 04/15/18 20:13 04/15/18 21:00 Temperature 99.0 F Pulse Rate 85 85 87 Respiratory Rate 16 16 16 Blood Pressure 123/59 L 136/67 Pulse Oximetry 96 96 95 04/15/18 22:00 04/15/18 23:00 04/16/18 00:00 Temperature 99.1 F Pulse Rate 90 87 84 Respiratory Rate 16 16 16 Blood Pressure 117/57 L 124/61 101/56 L Pulse Oximetry 96 93 L 95 04/16/18 00:10 04/16/18 01:00 04/16/18 02:00 Temperature Pulse Rate 83 84 83 Respiratory Rate 16 16 16 Blood Pressure 122/65 136/66 Pulse Oximetry 95 96 96 04/16/18 03:00 04/16/18 03:32 04/16/18 04:00 Temperature 98.5 F Pulse Rate 80 81 88 Respiratory Rate 16 16 23 Blood Pressure 144/68 H 173/77 H Pulse Oximetry 95 95 04/16/18 05:00 04/16/18 06:00 04/16/18 07:00 Temperature Pulse Rate 86 81 80 Respiratory Rate 16 16 16 Blood Pressure 97/54 L 106/57 L 129/66 Pulse Oximetry 94 L 96 97 04/16/18 07:35 04/16/18 08:00 04/16/18 09:00 Temperature 99.1 F Pulse Rate 80 80 80 Respiratory Rate 16 16 16 Blood Pressure 109/56 L 110/55 L Pulse Oximetry 96 96 96 04/16/18 10:49 04/16/18 11:09 Temperature Pulse Rate Respiratory Rate 16 Blood Pressure Pulse Oximetry 98 96 Intake & Output 04/15/18 04/16/18 04/16/18 18:59 06:59 18:59 Intake Total 550 / 550 200 / 200 100 / 100 Output Total 50 / 50 190 / 190 Balance 500 / 500 200 / 200 -90 / -90 Weight 67.8 kg Intake: IV 550 / 550 200 / 200 100 / 100 Diprivan 1000 mg/100 ml Inj 1, 200 / 200 100 / 100 100 / 100 000 mg In 100 ml @ 5 MCG/KG/MIN 2.313 mls/hr IV.CONT TITRATE PRN Rx#:[id number] Zosyn 2.25 GM Premix 50 ML @ 100 / 100 100 / 100 100 mls/hr IV.SIG Q6H PRINCESS Rx#: [id number] Vancomycin Inj 1,000 MG In NS 250 / 250 Inj 250 ML @ 250 mls/hr IV.SIG ONCE ONE Rx#:[id number] Oral 0 / 0 0 / 0 Output: Urine 0 / 0 0 / 0 Gastric Drainage 50 / 50 190 / 190 Oral Orogastric Tube 50 / 50 190 / 190 Other: # Bowel Movements 0 0 Neuro: intubated, sedated by report moves hand HEENT: anicteric Neck: no JVD Heart: rapid HR Lungs: B excursion Vascular: LEFT arm with + thrill hand cool, noticably cooler than RIGHT Extremities: no wounds L UE Laboratory Results - last 24 hr 04/15/18 04/15/18 04/15/18 17:35 22:30 23:17 WBC RBC Hgb Hct MCV MCH MCHC RDW Plt Count MPV Prelim Diff (Auto) Neut % (Auto) Lymph % (Auto) [place] % (Auto) Eos % (Auto) Baso % (Auto) Neut # (Auto) Lymph # (Auto) [place] # (Auto) Eos # (Auto) Baso # (Auto) WBC Differential Seg Neuts % (Manual) Band Neuts % (Manual) Lymphocytes % (Manual) Monocytes % (Manual) Eosinophils % (Manual) Basophils % (Manual) Abs Neuts (Manual) Differential Comment Dohle Bodies Platelet Estimate Platelet Morphology PT INR APTT Sodium Potassium Chloride Carbon Dioxide Anion Gap BUN Creatinine Estimated GFR POC Glucose 102 101 Random Glucose Lactic Acid 1.6 Calcium Phosphorus Magnesium Total Bilirubin AST ALT Alkaline Phosphatase Ammonia Total Creatine Kinase CK-MB (CK-2) CK-MB (CK-2) % Total Protein Albumin Random Vancomycin 04/16/18 04/16/1804/16/18 04:30 04:30 04:30 WBC 12.4 H RBC 3.22 L Hgb 10.3 L Hct 31.6 L MCV 98.2 MCH 31.9 MCHC 32.5 RDW 19.5 H Plt Count 217 MPV 8.8 Prelim Diff (Auto) Slide review pending Neut % (Auto) 81.3 H Lymph % (Auto) 13.6 [place] % (Auto) 3.5 Eos % (Auto) 1.0 Baso % (Auto) 0.6 Neut # (Auto) 10.1 H Lymph # (Auto) 1.7 [place] # (Auto) 0.4 Eos # (Auto) 0.1 Baso # (Auto) 0.1 WBC Differential Manual diff final Seg Neuts % (Manual) 63 Band Neuts % (Manual) 14 H Lymphocytes % (Manual) 19 Monocytes % (Manual) 2 Eosinophils % (Manual) 1 Basophils % (Manual) 1 Abs Neuts (Manual) 9.5 H Differential Comment . Dohle Bodies Present H Platelet Estimate Normal Platelet Morphology Enlarged H PT 12.7 H INR 1.3 APTT 44.3 H D Sodium Potassium Chloride Carbon Dioxide Anion Gap BUN Creatinine Estimated GFR POC Glucose Random Glucose Lactic Acid 1.6 Calcium Phosphorus Magnesium Total Bilirubin AST ALT Alkaline Phosphatase Ammonia Total Creatine Kinase CK-MB (CK-2) CK-MB (CK-2) % Total Protein Albumin Random Vancomycin 04/16/18 04/16/18 04/16/18 04:30 04:30 08:36 WBC RBC Hgb Hct MCV MCH MCHC RDW Plt Count MPV Prelim Diff (Auto) Neut % (Auto) Lymph % (Auto) [place] % (Auto) Eos % (Auto) Baso % (Auto) Neut # (Auto) Lymph # (Auto) [place] # (Auto) Eos # (Auto) Baso # (Auto) WBC Differential Seg Neuts % (Manual) Band Neuts % (Manual) Lymphocytes % (Manual) Monocytes % (Manual) Eosinophils % (Manual) Basophils % (Manual) Abs Neuts (Manual) Differential Comment Dohle Bodies Platelet Estimate Platelet Morphology PT INR APTT Sodium 141 Potassium 4.5 Chloride 101 Carbon Dioxide 22.8 Anion Gap 17 H BUN 79 H Creatinine 9.39 H Estimated GFR 4 L POC Glucose 91 Random Glucose 94 Lactic Acid Calcium 8.0 L Phosphorus 7.6 H D Magnesium 2.3 Total Bilirubin 0.9 AST 475 H ALT 632 H Alkaline Phosphatase 58 Ammonia Less than 10 L Total Creatine Kinase 506 H CK-MB (CK-2) 6.2 H CK-MB (CK-2) % 1.2 Total Protein 7.8 Albumin 3.1 L Random Vancomycin 27.2 04/16/18 12:10 WBC RBC Hgb Hct MCV MCH MCHC RDW Plt Count MPV Prelim Diff (Auto) Neut % (Auto) Lymph % (Auto) [place] % (Auto) Eos % (Auto) Baso % (Auto) Neut # (Auto) Lymph # (Auto) [place] # (Auto) Eos # (Auto) Baso # (Auto) WBC Differential Seg Neuts % (Manual) Band Neuts % (Manual) Lymphocytes % (Manual) Monocytes % (Manual) Eosinophils % (Manual) Basophils % (Manual) Abs Neuts (Manual) Differential Comment Dohle Bodies Platelet Estimate Platelet Morphology PT INR APTT Sodium Potassium Chloride Carbon Dioxide Anion Gap BUN Creatinine Estimated GFR POC Glucose 81 Random Glucose Lactic Acid Calcium Phosphorus Magnesium Total Bilirubin AST ALT Alkaline Phosphatase Ammonia Total Creatine Kinase CK-MB (CK-2) CK-MB (CK-2) % Total Protein Albumin Random Vancomycin Microbiology 04/14/18 15:15 Gram Stain - Final Sputum - Endotracheal Sputum Culture - Final Heavy growth normal respiratory black 04/15/18 13:55 Aerobic Blood Culture - Preliminary Blood - Peripheral No growth in 1 day Anaerobic Blood Culture - Preliminary No growth in 1 day 04/15/18 11:30 Aerobic Blood Culture - Preliminary Blood - Line No growth in 1 day Anaerobic Blood Culture - Preliminary No growth in 1 day 04/14/18 10:20 Aerobic Blood Culture - Preliminary Blood - Peripheral No growth in 2 days Anaerobic Blood Culture - Preliminary No growth in 2 days 04/14/18 10:25 Aerobic Blood Culture - Preliminary Blood - Peripheral No growth in 2 days Anaerobic Blood Culture - Preliminary No growth in 2 days 04/14/18 10:35 Urine Culture - Final Clean Catch Urine No growth in 48 hours Impressions Liver Ultrasound 04/14/18 12:44 CONCLUSION: 1. Gallbladder contains sludge and stones. However, no additional findings are present to definitively indicate acute cholecystitis. 2. Common bile duct is enlarged but contains no visible stone. Given the pain one could consider MRCP for further evaluation of the common duct stone as a cause for the duct dilatation in right upper quadrant pain. 3. Atrophic right kidney with changes suggesting chronic medical renal disease. There is a complex cystic lesion in the mid kidney and renal sinus measuring up to 3.5 cm. At some point ideally be further characterized with renal protocol MRI with and without intravenous contrast. This should be performed on an elective basis when condition permits. Upper Extremity Ultrasound 04/15/18 00:00 CONCLUSION: Patent left AV fistula. Venous Doppler Study 04/15/18 00:00 CONCLUSION: No evidence of DVT. Chest X-Ray 04/16/18 06:00 CONCLUSION: No significant interval change. No acute cardiopulmonary disease identified. Cholangiopancreatography MRI 04/16/18 07:10 CONCLUSION: 1. Cholelithiasis with multiple small gallstones layering dependently. There is no gallbladder wall thickening or inflammatory change. No gas is visualized on the MRI. 2. Common bile duct measuring up to 1 cm with no filling defects or mass. This could represent distal obstruction or prior passage of stones. 3. Multiple benign-appearing small cystic structures in the pancreas. 4. Bilateral simple renal cysts as well as a more complex right parapelvic cyst. Assessment and Plan - Assessment (1) Chronic kidney disease Code(s): N18.9 - Chronic kidney disease, unspecified Status: Acute - Plan LEFT hand with expected diminished perfusion compared to RIGHT (patent AVF) but no clear access-related hand ischemia, although clearly exam limited. 1. LEFT arm precautions 2. Continue neurovascular checks LEFT arm. Any motor dysfunction will prompt access ligation 3. May ultimately end up with additional surgical procedure to maintain AVF and augment hand perfusion (e.g., DRIL) but in the setting of sepsis 4. Continue sepsis workup including potential cholecystostomy if potential biliary source. Will follow closely Wili Wu MD FACS [facility] [phone]
--- NOTE | 2018-04-16 14:31 | ECHRPT ---
EXAM DATE: 04/16/2018 1:59 PM EST AGE/SEX: 72 years / Female INDICATIONS: sepsis unk source CLINICAL DATA: This is the patient's initial encounter. Patient reports that signs and symptoms have been present for 4 - 6 days and indicates a pain score of Nonresponsive. MEDICAL/SURGICAL HISTORY: . diabetes mellitus, GERD, hypertension, end stage renal disease, str maggie, TIA, peritoneal dialysis catheter, AV fistula . COMPARISON: [facility] [place], [place] ARM HEMODIALYSIS DOPPLER LEFT, 04/15/2018. . TECHNIQUE: Segmental examination of the upper extremities was performed. Pulsed-cuff waveform tracin gs and pressures were recorded. PRESSURES (mmHg): Upper Arm : RIGHT: 117, LEFT: N/A Lower Arm: RIGHT: CNO<250, LEFT: 145 Digit 1 : RIGHT: 50, LEFT: 0 FBI : RIGHT: 0.43, LEFT: 0.00 RIGHT: , LEFT: RIGHT: , LEFT: RIGHT: , LEFT: RIGHT: , LEFT: PULSED CUFF WAVEFORMS: Unobtainable pressures in the forearms particularly on the right. Nearly norm al waveform in the right digits. Unobtainable pressures in the left digits. CONCLUSION: 1. Significantly limited examination due to unobtainable pressures in the forearms bilaterally. 2. Unobtainable pressures and absence of waveforms in the left hand. Cannot exclude steal from patie nt's left upper extremity brachiobasilic fistula. Electronically signed by: Saurabh Mcnally MD 04/16/2018 2:30 PM EST
[2018-04-16 15:14] LABS: Thyroid Stimulating Hormone 1.29 uIU/mL (0.358-3.740)
[2018-04-16 15:25] LABS: Troponin I 1.3 ng/mL (0.02-0.05)
--- NOTE | 2018-04-16 19:10 | ECG ---
Date Performed: 04/16/2018 Time Performed: 07:57:55 PTAGE: 72 years EKG: Sinus rhythm RIGHT BUNDLE BRANCH BLOCK ABNORMAL ECG PREVIOUS TRACING : 04/14/2018 09.40 Since the previous tracing, no significant change noted DOCTOR: Mack Esqueda Interpretating Date/Time 04/16/2018 19:09:15
[2018-04-16] MEDS: fentaNYL 10 mcg/mL Premix Drip 2,500 MCG/250 ML BAG IV.SIG PRN (23:51)
[2018-04-17] MEDS: Dextrose 5%/NaCl 0.9% Inj 1,000 ML IV.CONT SCH (00:44)
[2018-04-17] MEDS: Insulin NovoLOG Aspart Correctional Sugar Inj SQ SCH ×5 (02:38→17:49)
[2018-04-17] MEDS: Oral Hygiene Kit OROPHARYNG SCH ×5 (02:39→16:35)
[2018-04-17] MEDS: Pantoprazole Inj 40 MG Vial IV.PUSH SCH ×2 (02:43→14:14)
[2018-04-17] MEDS: Piperacil/Tazo 2.25 GM Premix 50 ML IV.SIG SCH ×4 (02:44→20:38)
[2018-04-17] MEDS: Artificial Tears Opth Drops 15 ML Bottle EACH EYE SCH ×3 (02:46→20:38)
[2018-04-17 04:25] LABS: Baso # (Auto) 0.1 th/mm3 (0.0-0.2); Baso % (Auto) 0.7 % (0.0-2.0); Eos # (Auto) 0.2 th/mm3 (0.0-0.4); Eos % (Auto) 1.6 % (0.0-4.0); Hematocrit 27.1 % (35.0-46.0); Hemoglobin 9.2 gm/dL (11.6-15.3); Lymph # (Auto) 1.5 th/mm3 (1.0-4.8); Lymph % (Auto) 13.9 % (9.0-44.0); Mean Corpuscular HGB Conc 33.9 % (32.0-36.0); Mean Corpuscular Hemoglobin 33.3 pg (27.0-34.0); Mean Corpuscular Volume 98.3 fL (80.0-100.0); Mean Platelet Volume 9.5 fL (7.0-11.0); Mono # (Auto) 0.9 th/mm3 (0.0-0.9); Mono % (Auto) 8.4 % (0.0-8.0); Neut % (Auto) 75.4 % (16.0-70.0); Platelet Count 183 th/mm3 (150-450); Red Blood Count 2.76 mil/mm3 (4.00-5.30); Red Cell Distribution Width 19.2 % (11.6-17.2); White Blood Count 10.6 th/mm3 (4.0-11.0)
[2018-04-17 05:06] LABS: Anion Gap 18 meq/L (5-15); Carbon Dioxide 20.8 meq/L (21.0-32.0); Chloride 104 meq/L (98-107); Sodium 143 meq/L (136-145)
[2018-04-17 05:07] LABS: Alanine Aminotransferase 560 U/L (10-53); Aspartate Aminotransferase 423 U/L (15-37); Blood Urea Nitrogen 95 mg/dL (7-18); Calcium 7.7 mg/dL (8.5-10.1); Glomerular Filtration Rate 4 mL/min (>89); Glucose,Random 72 mg/dL (74-106); Magnesium 2.5 mg/dL (1.5-2.5); Phosphorus 7.8 mg/dL (2.5-4.9); Total Protein 7.2 g/dL (6.4-8.2)
[2018-04-17 05:08] LABS: Albumin 2.4 g/dL (3.4-5.0); Alkaline Phosphatase 74 U/L (45-117)
--- NOTE | 2018-04-17 05:09 | XR ---
EXAM DATE: 04/17/2018 5:02 AM EST AGE/SEX: 72 years / Female INDICATIONS: Short of breath. CLINICAL DATA: This is the patient's subsequent encounter. Patient reports that signs and symptoms h ave been present for 4 - 6 days and indicates a pain score of 0/10. MEDICAL/SURGICAL HISTORY: . diabetes mellitus, GERD, hypertension, end stage renal disease, str maggie, TIA . peritoneal dialysis catheter, AV fistula . COMPARISON: C, CHEST 1V SINGLE AP, 04/16/2018. . FINDINGS: Single AP view the chest. Endotracheal tube, nasogastric tube, right IJ central venous catheter remai n in place along with left subclavian central venous catheter. Minimal patchy right lung base opacity . No evidence of pleural effusion or pneumothorax. Cardiomediastinal silhouette unchanged. CONCLUSION: Minimal right lung base opacity. Electronically signed by: Mil Lopez MD 04/17/2018 5:08 AM EST
[2018-04-17 05:11] LABS: Digoxin 3.8 ng/mL (0.8-2.0)
[2018-04-17] MEDS: Propofol 1000 mg/100 ml Inj 1,000 MG/100 ML BOTTLE IV.CONT PRN (06:25)
[2018-04-17] MEDS: Chlorhexidine Gluconate 2% 1 Pack (2 Cloths) TOPICAL SCH (06:30)
[2018-04-17 07:44] LABS: Dohle Bodies Present; Platelet Estimate Normal (Normal)
--- NOTE | 2018-04-17 08:08 | P.PNCC ---
Subjective Subjective Remarks/Hospital Course: Patient is a 72-year-old female with past medical history significant for previous strokes, TIA, end-stage renal disease on hemodialysis (Monday, Monday schedule), Left AV fistula on 01/2018, type 2 diabetes, and hypertension. EMS was called as her roommate found her unresponsive last seen normal yesterday night. IV 0.4 mg of Narcan was given without any response. Patient was intubated in the emergency department for airway protection, for a GCS 8. Lab work showed leukocytosis of 12,500 with a left shift of 90% neutrophilia, 29% bands. Lactic acid came back at 6. CMP showed potassium of 6.0 bicarb of 16.7, anion gap of 24, liver enzymes were markedly elevated AST 1992 ALT 758, CPK 475, troponin 5.21. EKG did not show any evidence of acute ST elevation. ABG shows pH of 7.19 PCO2 of 48 PaO2 of [address] abdomen pelvis showed distended gallbladder with cholelithiasis, also small amount of air in the fundus of the gallbladder. Critical care medicine was consulted for admission. I evaluated the patient in the emergency department. She is acutely ill critical appearing. Intermittently hypotensive. Dr. Vargas has placed a left subclavian central line. I will start Levophed if needed. Patient received Zosyn and Flagyl in the ED. I will place patient on vancomycin and Zosyn renally dosed. Pierre cultures have been sent. With the CT finding I contacted Dr. Cortes who requested stat ultrasound of the right upper quadrant. Also ID was consulted and I discussed with Dr. Montaño. Patient has healed scars probably few week old laparoscopic abdominal surgery, it is unclear what kind of surgery she had. Dr. Fermin consulted for an STEMI. Nephrology Dr. Gillette consulted for emergent hemodialysis 04/15 -T-max 101. Remains on broad-spectrum antibiotics. Noted cool left fingers not cyanotic but will check fistula Doppler and arterial Dopplers and venous Doppler left upper extremity. Central line placed left subclavian noted. 04/16: T-max 100.5. MRCP pending. Right upper lower extremity and left lower extremity remains warm. Cool left upper extremity. Has seen Dr. Wu for her left AV fistula in the past. Positive dopplerable/patent left AV fistula noted by Doppler 04/15. Downward trending liver function test. Subjective 04/17: Afebrile. Patient received 2 doses of digoxin due to A. fib with RVR. Currently normal sinus rhythm. Hypoglycemic overnight requiring D5 normal saline currently at 42 cc an hour. Off all vasopressors. Remains in normal sinus rhythm. Cardiology recommended IV diltiazem for paroxysmal atrial fibrillation. Will order. MRCP result results noted. Objective Vital Signs / I&O: Vital Signs 04/16/18 09:00 04/16/18 10:49 04/16/18 11:09 Temperature Pulse Rate 80 Respiratory Rate 16 16 Blood Pressure 110/55 L Pulse Oximetry 96 98 96 04/16/18 12:00 04/16/18 15:56 04/16/18 16:00 Temperature 99.5 F 99.3 F Pulse Rate 141 H 79 80 Respiratory Rate 16 16 16 Blood Pressure 127/59 L Pulse Oximetry 04/16/18 19:30 04/16/18 19:34 04/16/18 20:00 Temperature 98.7 F Pulse Rate 79 78 Respiratory Rate 16 16 16 Blood Pressure 123/59 L Pulse Oximetry 100 97 04/16/18 22:18 04/16/18 23:22 04/17/18 00:00 Temperature 97.6 F Pulse Rate 76 75 Respiratory Rate 16 16 16 Blood Pressure 134/63 Pulse Oximetry 100 96 04/17/18 01:30 04/17/18 03:30 04/17/18 04:00 Temperature 98.7 F Pulse Rate 72 71 Respiratory Rate 16 16 16 Blood Pressure 120/58 L Pulse Oximetry 97 96 04/17/18 04:18 Temperature Pulse Rate Respiratory Rate 16 Blood Pressure Pulse Oximetry 96 Intake & Output 04/16/18 04/17/18 04/17/18 18:59 06:59 18:59 Intake Total 1150 / 1150 700 / 700 Output Total 515 / 515 325 / 325 Balance 635 / 635 700 / 700 -325 / -325 Weight 69.9 kg Intake: IV 1150 / 1150 700 / 700 Diprivan 1000 mg/100 ml Inj 1, 100 / 100 200 / 200 000 mg In 100 ml @ 5 MCG/KG/MIN 2.313 mls/hr IV.CONT TITRATE PRN Rx#:[id number] Zosyn 2.25 GM Premix 50 ML @ 50 / 50 150 / 150 100 mls/hr IV.SIG Q6H [facility] Rx#: [id number] NS Inj 1,000 ML @ Wide Open IV. 1000 / 1000 SIG BOLUS ONE Rx#:[id number] fentaNYL 10 mcg/mL Premix Drip 350 / 350 2,500 mcg In 250 ml @ 50 MCG/HR 5 mls/hr IV.SIG TITRATE PRN Rx #:[id number] Oral 0 / 0 Output: Urine 0 / 0 0 / 0 Stool 0 / 0 Urine/Stool Mix 0 / 0 Gastric Drainage 515 / 515 325 / 325 Oral Orogastric Tube 515 / 515 325 / 325 Other: # Incontinent Voids 0 # Bowel Movements 0 0 # Incontinent Bowel Movements 0 Result Diagrams: 04/17/18 04:00 04/17/18 04:00 Other Results: Microbiology 04/14/18 15:15 Sputum - Endotracheal Gram Stain - Final 04/14/18 15:15 Sputum - Endotracheal Sputum Culture - Final Heavy growth normal respiratory black 04/15/18 13:55 Blood - Peripheral Aerobic Blood Culture - Preliminary No growth in 1 day 04/15/18 13:55 Blood - Peripheral Anaerobic Blood Culture - Preliminary No growth in 1 day 04/15/18 11:30 Blood - Line Aerobic Blood Culture - Preliminary No growth in 1 day 04/15/18 11:30 Blood - Line Anaerobic Blood Culture - Preliminary No growth in 1 day 04/14/18 10:20 Blood - Peripheral Aerobic Blood Culture - Preliminary No growth in 2 days 04/14/18 10:20 Blood - Peripheral Anaerobic Blood Culture - Preliminary No growth in 2 days 04/14/18 10:25 Blood - Peripheral Aerobic Blood Culture - Preliminary No growth in 2 days 04/14/18 10:25 Blood - Peripheral Anaerobic Blood Culture - Preliminary No growth in 2 days 04/14/18 10:35 Clean Catch Urine Urine Culture - Final No growth in 48 hours Imaging: Chest X-Ray 04/14/18 09:44 CONCLUSION: Satisfactory position of supporting devices Interval placement of bilateral central venous catheters without evidence of pneumothorax. Cardiomegaly with out evidence of acute airspace disease or significant pulmonary edema. Head CT 04/14/18 09:44 CONCLUSION: 1. 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 2. No evidence of acute infarct, hemorrhage, mass or edema. 3. No significant change compared to 04/12/2017. . Abdomen/Pelvis CT 04/14/18 10:59 CONCLUSION: 1. Distended gallbladder with cholelithiasis and minimal gas in the fundus. There is no significant pericholecystic fluid or inflammation. 2. Simple left renal cyst. 3. Bibasilar airspace disease. Liver Ultrasound 04/14/18 12:44 CONCLUSION: 1. Gallbladder contains sludge and stones. However, no additional findings are present to definitively indicate acute cholecystitis. 2. Common bile duct is enlarged but contains no visible stone. Given the pain one could consider MRCP for further evaluation of the common duct stone as a cause for the duct dilatation in right upper quadrant pain. 3. Atrophic right kidney with changes suggesting chronic medical renal disease. There is a complex cystic lesion in the mid kidney and renal sinus measuring up to 3.5 cm. At some point ideally be further characterized with renal protocol MRI with and without intravenous contrast. This should be performed on an elective basis when condition permits. Extremity Arterial Study 04/15/18 00:00 CONCLUSION: 1. Significantly limited examination due to unobtainable pressures in the forearms bilaterally. 2. Unobtainable pressures and absence of waveforms in the left hand. Cannot exclude steal from patient's left upper extremity brachiobasilic fistula. Upper Extremity Ultrasound 04/15/18 00:00 CONCLUSION: Patent left AV fistula. Venous Doppler Study 04/15/18 00:00 CONCLUSION: No evidence of DVT. Chest X-Ray 04/16/18 06:00 CONCLUSION: No significant interval change. No acute cardiopulmonary disease identified. Cholangiopancreatography MRI 04/16/18 07:10 CONCLUSION: 1. Cholelithiasis with multiple small gallstones layering dependently. There is no gallbladder wall thickening or inflammatory change. No gas is visualized on the MRI. 2. Common bile duct measuring up to 1 cm with no filling defects or mass. This could represent distal obstruction or prior passage of stones. 3. Multiple benign-appearing small cystic structures in the pancreas. 4. Bilateral simple renal cysts as well as a more complex right parapelvic cyst. Chest X-Ray 04/17/18 06:00 CONCLUSION: Minimal right lung base opacity. Objective Remarks: GENERAL: 72-year-old female currently orotracheally intubated SKIN: Warm and dry with the exception of cool peripheral fingers left upper extremity dopplerable pulses HEAD: Atraumatic. Normocephalic. EYES: Pupils equal and round about 2 mm bilaterally and reactive. No scleral icterus. No injection or drainage. ENT: No nasal bleeding or discharge. Mucous membranes pink and moist. NECK: Trachea midline. No JVD. CARDIOVASCULAR: Regular rate and rhythm. S1, S2. No S4. Murmur RESPIRATORY: Few fine crackles appreciated bilaterally anteriorly posteriorly. No wheezing GASTROINTESTINAL: Abdomen soft, slight right upper quadrant-tender, nondistended. Hepatic and splenic margins not palpable. Hypoactive bowel sounds appreciated. MUSCULOSKELETAL: Extremities without clubbing, cyanosis, or edema. Left AV fistula positive thrill. Patient has a tunneled right IJ Hemovac catheter in the subclavian left triple-lumen catheter in place along with the left femoral arterial line NEUROLOGICAL: Arousable availability currently not following commands. Moving all 4 extremities spontaneously Assessment and Plan - Problem List (1) Acute metabolic encephalopathy Code(s): G93.41 - Metabolic encephalopathy Status: Acute (2) Acute hypoxemic respiratory failure Code(s): J96.01 - Acute respiratory failure with hypoxia Status: Acute (3) Septic shock Code(s): A41.9 - Sepsis, unspecified organism; R65.21 - Severe sepsis with septic shock Status: Resolved (4) Lactic acidosis Code(s): E87.2 - Acidosis Status: Acute (5) Non-ST elevated myocardial infarction (non-STEMI) Code(s): I21.4 - Non-ST elevation (NSTEMI) myocardial infarction Status: Acute (6) UTI (urinary tract infection) Code(s): N39.0 - Urinary tract infection, site not specified Status: Acute (7) Liver enzyme elevation Code(s): R74.8 - Abnormal levels of other serum enzymes Status: Acute (8) Emphysematous cholecystitis Code(s): K81.0 - Acute cholecystitis Status: Acute (9) Hyperkalemia Code(s): E87.5 - Hyperkalemia Status: Acute (10) ESRD (end stage renal disease) Code(s): N18.6 - End stage renal disease Status: Chronic (11) HTN (hypertension) Code(s): I10 - Essential (primary) hypertension Status: Chronic (12) Diabetes Code(s): E11.9 - Type 2 diabetes mellitus without complications Status: Chronic (13) GERD (gastroesophageal reflux disease) Code(s): K21.9 - Gastro-esophageal reflux disease without esophagitis Status: Chronic (14) Stroke Code(s): I63.9 - Cerebral infarction, unspecified Status: Chronic (15) TIA (transient ischemic attack) Code(s): G45.9 - Transient cerebral ischemic attack, unspecified Status: Chronic - Assessment and Plan Plan: NEURO/PSYCH: Acute metabolic encephalopathy Old small bilateral cerebellar infarcts. -Propofol and as needed fentanyl for sedation and ventilator synchrony -Encephalopathy seems to be metabolic secondary to severe sepsis -Daily sedation vacation once clinically stable -CT of the head shows old bilateral cerebellar strokes, and nothing acute. Consider MRI brain if no improvement on sedation vacation RESP: Acute hypoxemic respiratory failure -Intubated in the emergency department for lack of airway protection and hypoxia -PRVC/AC, Ventilator bundle, albuterol/ipratropium aerosols every 4 hours with albuterol aerosols every 2 hours as needed -Head of bed at 30 degrees -SBT when appropriate CV: NSTEMI likely type II Paroxysmal atrial fibrillation with 2 1 AV conduction Hypotension Lactic acidosis History of hypertension -Normal saline IV fluids 500 ml bolus, 2d echo, cardiology consult, serial troponin -Start aspirin 81 mg daily, hold off beta-lenora secondary to hypotension -Cardiology Dr. Fermin consulted NSTEMI most likely type II from sepsis -Avoid IV heparin due to markedly elevated liver enzymes, possible need of surgical intervention -Hold all home antihypertensives (hold nifedipine, clonidine, hydralazine and Lasix) -Cardiology recommended diltiazem drip. Ordered -2d echocardiogram revealed normal left ventricular size. EF 65-70%. Left lipomatous atrial septum,. Trace MR/TR GI: Markedly elevated liver enzymes Probable emphysematous cholecystitis History of GERD -N.p.o., IV pantoprazole -CT abdomen pelvis shows small amount of air in the fundus of the gallbladder, this is concerning for emphysematous cholecystitis given clinical picture -Stat consult to general surgery and discussed with Dr. Cortes. Recommended conservative therapy at the present time. -Dr. Cortes/general surgery and gastroenterology following MRCP -04/16 - cholelithiasis with multiple small gallstones layering dependently. There is no gallbladder wall thickening or inflammatory change. No gas is visualized on the MRI. Common bile duct measuring up to 1 cm with no filling defects or mass. This could represent distal obstruction or prior passage of stones. Multiple benign-appearing small cystic structures in the pancreas. Bilateral simple renal cysts as well as a more complex right parapelvic cyst. -Possible ERCP. LFTs very slowly trending downward Renal/: End-stage renal disease -Monitor renal function closely. -Dr. Gillette consulted for emergent hemodialysis on 04/14. Per his schedule -Monitor urine output accurate I's and O's ID: Septic shock Probable emphysematous cholecystitis Possible UTI -Antibiotics with piperacillin/tazobactam. Discontinued vancomycin 04/16 -Infectious disease and general surgery consulted -Follow-up blood urine and sputum cultures no growth to date HEME: Normocytic anemia -Monitor CBC, coags -No indication for transfusion of blood products at this time ENDO/FEN: Hyperphosphatemia Type 2 diabetes -Sliding scale insulin -Currently D5 normal saline at 42 cc hours with hypoglycemic episode PROPH: -Bilateral lower extremity SCDs. Heparin sq/IV pantoprazole LINES: -Utilize peripheral IVs, left subclavian central line day #4 with left femoral arterial line day #2 Level 3 follow-up Code Status: Full code (6) UTI (urinary tract infection) Qualifiers: Urinary tract infection type: site unspecified Hematuria presence: without hematuria Qualified Code(s): N39.0 - Urinary tract infection, site not specified (11) HTN (hypertension) Qualifiers: Hypertension type: unspecified Qualified Code(s): I10 - Essential (primary) hypertension (12) Diabetes Qualifiers: Diabetes mellitus type: other specified (including YOVANI) Diabetes mellitus intermediate frame tender insulin use: unspecified skilled nursing insulin use status Diabetes mellitus complication status: with unspecified complications Qualified Code(s) : E13.8 - Other specified diabetes mellitus with unspecified complications (13) GERD (gastroesophageal reflux disease) Qualifiers: Esophagitis presence: esophagitis presence not specified Qualified Code(s): K21.9 - Gastro-esophageal reflux disease without esophagitis (14) Stroke Qualifiers: CVA mechanism: unspecified Qualified Code(s): I63.9 - Cerebral infarction, unspecified
--- NOTE | 2018-04-17 09:44 | ECG ---
Date Performed: 04/16/2018 Time Performed: 11:01:12 PTAGE: 72 years EKG: Atrial fibrillation with rapid ventricular response. Right bundle branch block Inferior/lat eral ST-T changes are nonspecific Abnormal ECG NO PREVIOUS TRACING DOCTOR: Robb Vigil Interpretating Date/Time 04/17/2018 09:42:46
--- NOTE | 2018-04-17 10:46 | P.PNCA ---
Subjective Interval history: Intubated. Sedated. Medications and Allergies Active Medications: Active Medications Acetaminophen (Tylenol) 650 mg PO UNSCH PRN PRN Reason: SEE LABEL COMMENTS Albuterol (Duoneb Neb (Princess)) 1 ampul NEB Q4HR NEB [facility] Last Admin: 04/17/18 08:04 Dose: 1 ampul Albuterol (Albuterol Neb (Prn)) 2.5 mg NEB Q2HR NEB PRN PRN Reason: DYSPNEA Artificial Tears (Tears Naturale Opth Drops) 1 drop EACH EYE Q8H [facility] Last Admin: 04/17/18 02:46 Dose: 1 drop Aspirin (Aspirin Chew) 81 mg PO DAILY [facility] Last Admin: 04/16/18 08:39 Dose: 81 mg Chlorhexidine Gluconate (Chlorhexidine 2% Cloth) 3 pack TOPICAL DAILY@0400 [facility] Stop: 04/20/18 03:59 Last Admin: 04/17/18 06:30 Dose: 3 pack Chlorhexidine Gluconate (Chlorhexidine 2% Cloth) 3 pack TOPICAL DAILY@0400 PRN PRN Reason: Extra cloth needed Stop: 04/20/18 03:59 Chlorhexidine Gluconate (Peridex 0.12% Oral Kit) 15 ml OROPHARYNG BID@0800, 2000 [facility] Last Admin: 04/16/18 21:02 Dose: 15 ml Clonidine HCl (Catapres) 0.1 mg PO UNSCH PRN PRN Reason: SEE LABEL COMMENTS Dextrose (D50w Vial) 50 ml IV.PUSH UNSCH PRN PRN Reason: PER HYPOGLYCEMIA PROTOCOL Diphenhydramine HCl (Benadryl) 25 mg PO UNSCH PRN PRN Reason: SEE LABEL COMMENTS Gelatin (Gelfoam 12 Mm/7 Mm Topical) 1 foam TOPICAL PRN PRN PRN Reason: help stop bleeding from site Gentamicin Sulfate (Gentamicin Inj) 20 mg OTHER WITH DIALYSIS PRN PRN Reason: Dwell Gentamycin Lock Last Admin: 04/14/18 15:20 Dose: 20 mg Glucagon (Glucagon Inj) 1 mg OTHER PRN PRN PRN Reason: for Hypoglycemia Protocol Heparin Sodium (Porcine) (Heparin Inj) 5,000 units SQ Q12HR [facility] Last Admin: 04/16/18 21:03 Dose: 5,000 units Heparin Sodium (Porcine) (Heparin Inj) 8,000 units OTHER WITH DIALYSIS PRN PRN Reason: for machine prime Heparin Sodium (Porcine) (Heparin Inj) 1,000 units OTHER WITH DIALYSIS PRN PRN Reason: Dwell Heparin to Fill Catheter Last Admin: 04/14/18 15:19 Dose: 1,000 units Propofol (Diprivan 1000 Mg/100 Ml Inj) 1,000 mg in 100 mls @ 2.313 mls/hr IV.CONT TITRATE PRN; Protocol PRN Reason: Per Protocol Last Admin: 04/17/18 06:25 Dose: 40 mcg/kg/min, 18.51 mls/hr Piperacillin/Tazobactam/Dextrose (Zosyn 2.25 Gm Premix) 50 mls @ 100 mls/hr IV.SIG Q6H [facility] Last Admin: 04/17/18 09:59 Dose: Not Given Sodium Chloride (Ns Inj) 1,000 mls @ 0 mls/hr OTHER .Q0M PRN PRN Reason: for prime and rinse back Sodium Chloride (Ns Inj) 1,000 mls @ 200 mls/hr OTHER .Q5H PRN PRN Reason: for dialyzer flush PRN Sodium Chloride (Ns Inj) 1,000 mls @ 0 mls/hr IV.CONT .Q0M PRN PRN Reason: hypotension / volume replace Albumin Human (Flexbumin 25% Inj) 100 mls @ 60 mls/hr IV.SIG WITH DIALYSIS PRN PRN Reason: hypotension / volume replace Last Infusion: 04/14/18 15:35 Dose: Infused Fentanyl (Fentanyl 10 Mcg/Ml Premix Drip) 2,500 mcg in 250 mls @ 5 mls/hr IV.SIG TITRATE PRN; Protocol PRN Reason: Per Protocol Last Titration: 04/17/18 06:29 Dose: 150 mcg/hr, 15 mls/hr Phenylephrine HCl 160 mg/ (Sodium Chloride) 500 mls @ 7.5 mls/hr IV.CONT TITRATE PRN; Protocol PRN Reason: See protol Dextrose/Sodium Chloride (D5w/Normal Saline Inj) 1,000 mls @ 42 mls/hr IV.CONT .[id number] [facility] Last Admin: 04/17/18 00:44 Dose: 42 mls/hr Diltiazem HCl 125 mg/ Sodium (Chloride) 125 mls @ 2.5 mls/hr IV.CONT TITRATE PRN; Protocol PRN Reason: Per Protocol Insulin Aspart (Novolog Insulin Correctional Sugar Inj) 0 unit SQ Q6HR [facility]; Protocol Last Admin: 04/17/18 06:30 Dose: Not Given Mannitol (Mannitol Inj) 12.5 gm IV.PUSH UNSCH PRN PRN Reason: hypotension / volume replace Miscellaneous Medication () 1 each OROPHARYNG 0000,0400,1200,1600 [facility] Last Admin: 04/17/18 06:30 Dose: 1 each Mupirocin (Bactroban 2% Nasal Oint) 1 applicatio EACH NARE BID [facility] Last Admin: 04/16/18 21:03 Dose: 1 applicatio Nitroglycerin (Nitrostat Sl) 0.4 mg SL Q5M PRN PRN Reason: CHEST PAIN Ondansetron HCl (Zofran Inj) 4 mg IV.PUSH UNSCH PRN PRN Reason: NAUSEA OR VOMITING Pantoprazole Sodium (Protonix Inj) 40 mg IV.PUSH Q12H [facility] Last Admin: 04/17/18 02:43 Dose: 40 mg Sodium Chloride (Ns Flush) 5 ml IV.FLUSH PRN PRN PRN Reason: flush each lumen during HD Terbutaline Sulfate (Brethine Inj) 1 mg SQ UNSCH PRN PRN Reason: For Extravasation Allergies Allergy/AdvReac Type Severity Reaction Status Date / Time No Known Allergies Allergy Verified 01/22/18 10:23 Home Medications Medication Instructions Recorded Confirmed Type clonidine HCl 0.1 mg PO DAILY PRN 01/22/18 01/22/18 History furosemide 80 mg PO DAILY 01/22/18 01/22/18 History hydralazine 50 mg PO QID 01/22/18 01/22/18 History hydrocodone-acetaminophen [[place]] 1 tab PO Q4-6H PRN 01/22/18 01/22/18 History nifedipine 90 mg PO DAILY 01/22/18 01/22/18 History pantoprazole [Protonix] 40 mg PO DAILY 01/22/18 01/22/18 History Physical Exam Vital signs: Vital Signs 04/16/18 10:49 04/16/18 11:09 04/16/18 12:00 Temperature 99.5 F Pulse Rate 141 H Respiratory Rate 16 16 Blood Pressure Pulse Oximetry 98 96 04/16/18 15:56 04/16/18 16:00 12/10/18 19:30 Temperature 99.3 F Pulse Rate 79 80 Respiratory Rate 16 16 16 Blood Pressure 127/59 L Pulse Oximetry 100 04/16/18 19:34 04/16/18 20:00 04/16/18 21:00 Temperature 98.7 F Pulse Rate 79 78 Respiratory Rate 16 16 Blood Pressure 123/59 L 176/81 H Pulse Oximetry 97 04/16/18 21:31 04/16/18 22:00 04/16/18 22:18 Temperature Pulse Rate 77 76 Respiratory Rate 16 16 16 Blood Pressure 103/52 L 106/57 L Pulse Oximetry 97 97 100 04/16/18 22:30 04/16/18 23:00 04/16/18 23:22 Temperature Pulse Rate 74 74 76 Respiratory Rate 16 16 16 Blood Pressure 124/60 128/63 Pulse Oximetry 98 98 04/16/18 23:30 04/17/18 00:00 04/17/18 00:30 Temperature 97.6 F Pulse Rate 75 75 79 Respiratory Rate 16 16 16 Blood Pressure 134/63 134/63 122/59 L Pulse Oximetry 98 96 96 04/17/18 01:00 04/17/18 01:30 04/17/18 02:00 Temperature Pulse Rate 76 74 73 Respiratory Rate 16 16 16 Blood Pressure 108/57 L 119/56 L 125/58 L Pulse Oximetry 96 97 97 04/17/18 02:30 04/17/18 03:00 04/17/18 03:30 Temperature Pulse Rate 72 71 72 Respiratory Rate 16 16 16 Blood Pressure 115/57 L 118/56 L 128/60 Pulse Oximetry 97 97 96 04/17/18 04:00 04/17/18 04:18 04/17/18 04:30 Temperature 98.7 F Pulse Rate 71 74 Respiratory Rate 16 16 16 Blood Pressure 120/58 L 114/55 L Pulse Oximetry 96 96 98 04/17/18 05:00 04/17/18 05:30 04/17/18 06:00 Temperature Pulse Rate 74 73 69 Respiratory Rate 16 16 15 Blood Pressure 113/55 L 122/58 L 115/58 L Pulse Oximetry 99 99 99 04/17/18 06:35 04/17/18 07:00 04/17/18 07:20 Temperature Pulse Rate 66 65 65 Respiratory Rate 16 16 16 Blood Pressure 96/53 L 184/79 H 122/58 L Pulse Oximetry 95 97 97 04/17/18 07:30 04/17/18 08:00 04/17/18 08:01 Temperature 98.7 F Pulse Rate 64 97 H 66 Respiratory Rate 16 16 16 Blood Pressure 117/58 L 157/68 H Pulse Oximetry 98 97 97 04/17/18 08:05 04/17/18 08:30 Temperature Pulse Rate 67 67 Respiratory Rate 16 16 Blood Pressure 160/72 H Pulse Oximetry 98 96 Intake & Output 04/16/18 04/17/18 04/17/18 18:59 06:59 18:59 Intake Total 1150 / 1150 700 / 700 Output Total 515 / 515 325 / 325 Balance 635 / 635 700 / 700 -325 / -325 Weight 69.9 kg Intake: IV 1150 / 1150 700 / 700 Diprivan 1000 mg/100 ml Inj 1, 100 / 100 200 / 200 000 mg In 100 ml @ 5 MCG/KG/MIN 2.313 mls/hr IV.CONT TITRATE PRN Rx#:[id number] Zosyn 2.25 GM Premix 50 ML @ 50 / 50 150 / 150 100 mls/hr IV.SIG Q6H [facility] Rx#: [id number] NS Inj 1,000 ML @ Wide Open IV. 1000 / 1000 SIG BOLUS ONE Rx#:[id number] fentaNYL 10 mcg/mL Premix Drip 350 / 350 2,500 mcg In 250 ml @ 50 MCG/HR 5 mls/hr IV.SIG TITRATE PRN Rx #:[id number] Oral 0 / 0 Output: Urine 0 / 0 0 / 0 Stool 0 / 0 Urine/Stool Mix 0 / 0 Gastric Drainage 515 / 515 325 / 325 Oral Orogastric Tube 515 / 515 325 / 325 Other: # Incontinent Voids 0 # Bowel Movements 0 0 # Incontinent Bowel Movements 0 - Constitutional Comments: Intubated. Sedated. - Routine Neck Exam Absent: JVD - Routine Respiratory Exam Present: CTA bilaterally - Routine Cardiovascular Exam Present: RRR, S1, S2. Absent: murmur, gallop - Routine Abdominal Exam Present: soft, normoactive bowel sounds. Absent: organomegaly - Routine Extremities Exam Absent: cyanosis, clubbing, edema - Urinary Catheter Management Indwelling Urethral Catheter Cath placed during this visit: yes, but has since been removed by the nurse Reason for continuing: Hourly intake/output Insertion date: 04/14/18 Insertion time: 10:35 Removal date: 04/14/18 Removal time: 17:30 Results 04/17/18 04:00 04/17/18 04:00 Cardiac Enzymes 04/16/18 04/16/18 04/17/18 Range/Units 04:30 13:48 04:00 AST 475 H 423 H (15-37) U/L CK-MB (CK-2) 6.2 H (0.5-3.6) ng/mL Troponin I 1.30 H* D (0.02-0.05) ng/mL Coagulation 04/16/18 Range/Units 04:30 PT 12.7 H (9.8-11.6) sec APTT 44.3 H D (23.4-31.7) sec CBC 04/16/18 04/17/18 Range/Units 04:30 04:00 WBC 12.4 H 10.6 (4.0-11.0) th/mm3 RBC 3.22 L 2.76 L (4.00-5.30) mil/mm3 Hgb 10.3 L 9.2 L (11.6-15.3) gm/dL Hct 31.6 L 27.1 L (35.0-46.0) % Plt Count 217 183 (150-450) th/mm3 Neut # (Auto) 10.1 H 8.0 H (1.8-7.7) th/mm3 Lymph # (Auto) 1.7 1.5 (1.0-4.8) th/mm3 Nolan # (Auto) 0.4 0.9 (0.0-0.9) th/mm3 Eos # (Auto) 0.1 0.2 (0.0-0.4) th/mm3 Baso # (Auto) 0.1 0.1 (0.0-0.2) th/mm3 Comprehensive Metabolic Panel 04/16/18 04/17/18 Range/Units 04:30 04:00 Sodium 141 143 (136-145) meq/L Potassium 4.5 5.0 (3.5-5.1) meq/L Chloride 101 104 (98-107) meq/L Carbon Dioxide 22.8 20.8 L (21.0-32.0) meq/L BUN 79 H 95 H (7-18) mg/dL Creatinine 9.39 H 10.12 H* (0.50-1.00) mg/dL Calcium 8.0 L 7.7 L (8.5-10.1) mg/dL AST 475 H 423 H (15-37) U/L ALT 632 H 560 H (10-53) U/L Alkaline Phosphatase 58 74 (45-117) U/L Total Protein 7.8 7.2 D (6.4-8.2) g/dL Albumin 3.1 L 2.4 L D (3.4-5.0) g/dL Intake and Output 04/16/18 04/17/18 04/17/18 22:59 06:59 14:59 Intake Total 50 / 50 650 / 650 Output Total 325 / 325 325 / 325 Balance -275 / -275 650 / 650 -325 / -325 Intake: IV 50 / 50 650 / 650 Diprivan 1000 mg/100 ml Inj 1, 200 / 200 000 mg In 100 ml @ 5 MCG/KG/MIN 2.313 mls/hr IV.CONT TITRATE PRN Rx#:[id number] Zosyn 2.25 GM Premix 50 ML @ 50 / 50 100 / 100 100 mls/hr IV.SIG Q6H [facility] Rx#: [id number] fentaNYL 10 mcg/mL Premix Drip 350 / 350 2,500 mcg In 250 ml @ 50 MCG/HR 5 mls/hr IV.SIG TITRATE PRN Rx #:[id number] Output: Urine 0 / 0 Stool 0 / 0 Urine/Stool Mix 0 / 0 Gastric Drainage 325 / 325 325 / 325 Oral Orogastric Tube 325 / 325 325 / 325 Other: # Incontinent Voids 0 # Bowel Movements 0 # Incontinent Bowel Movements 0 Weight 69.9 kg - Imaging and Cardiology Imaging: Impressions Extremity Arterial Study 04/15/18 00:00 CONCLUSION: 1. Significantly limited examination due to unobtainable pressures in the forearms bilaterally. 2. Unobtainable pressures and absence of waveforms in the left hand. Cannot exclude steal from patient's left upper extremity brachiobasilic fistula. Upper Extremity Ultrasound 04/15/18 00:00 CONCLUSION: Patent left AV fistula. Chest X-Ray 04/16/18 06:00 CONCLUSION: No significant interval change. No acute cardiopulmonary disease identified. Cholangiopancreatography MRI 04/16/18 07:10 CONCLUSION: 1. Cholelithiasis with multiple small gallstones layering dependently. There is no gallbladder wall thickening or inflammatory change. No gas is visualized on the MRI. 2. Common bile duct measuring up to 1 cm with no filling defects or mass. This could represent distal obstruction or prior passage of stones. 3. Multiple benign-appearing small cystic structures in the pancreas. 4. Bilateral simple renal cysts as well as a more complex right parapelvic cyst. Chest X-Ray 04/17/18 06:00 CONCLUSION: Minimal right lung base opacity. Assessment and Plan - Assessment (1) Non-ST elevated myocardial infarction (non-STEMI) Code(s): I21.4 - Non-ST elevation (NSTEMI) myocardial infarction Status: Acute Plan: Possible NSTEMI, though likely type 2 SC. Echo reviewed, shows excellent LV function without wall motion abnormalities. Recommend daily aspirin, consider beta lenora. (2) Paroxysmal atrial flutter Code(s): I48.92 - Unspecified atrial flutter Status: Acute Plan: Possible atrial flutter with 2:1 AV conduction on monitoring yesterday morning. EKG then suggestive of atrial fibrillation. Back in NSR. REC IV Cardizem as needed, observe for bradyarrhythmias. - Plan Code Status: full
--- NOTE | 2018-04-17 12:27 | P.PNNP ---
Subjective Interval history: Patient was seen, no apparent distress. Orally intubated on 40% FiO2. Patient was seen on dialysis: on 2K, blood flow rate of 320 ml/min, goal of 2.5 L. Patient gets dialyzed TTS. <Nehemiah Reyes - Last Filed: 04/17/18 12:28> Physical Exam Vital signs: Vital Signs 04/16/18 15:56 04/16/18 16:00 04/16/18 19:30 Temperature 99.3 F Pulse Rate 79 80 Respiratory Rate 16 16 16 Blood Pressure 127/59 L Pulse Oximetry 100 04/16/18 19:34 04/16/18 20:00 04/16/18 21:00 Temperature 98.7 F Pulse Rate 79 78 Respiratory Rate 16 16 Blood Pressure 123/59 L 176/81 H Pulse Oximetry 97 04/16/18 21:31 04/16/18 22:00 04/16/18 22:18 Temperature Pulse Rate 77 76 Respiratory Rate 16 16 16 Blood Pressure 103/52 L 106/57 L Pulse Oximetry 97 97 100 04/16/18 22:30 04/16/18 23:00 04/16/18 23:22 Temperature Pulse Rate 74 74 76 Respiratory Rate 16 16 16 Blood Pressure 124/60 128/63 Pulse Oximetry 98 98 04/16/18 23:30 04/17/18 00:00 04/17/18 00:30 Temperature 97.6 F Pulse Rate 75 75 79 Respiratory Rate 16 16 16 Blood Pressure 134/63 134/63 122/59 L Pulse Oximetry 98 96 96 04/17/18 01:00 04/17/18 01:30 04/17/18 02:00 Temperature Pulse Rate 76 74 73 Respiratory Rate 16 16 16 Blood Pressure 108/57 L 119/56 L 125/58 L Pulse Oximetry 96 97 97 04/17/18 02:30 04/17/18 03:00 04/17/18 03:30 Temperature Pulse Rate 72 71 72 Respiratory Rate 16 16 16 Blood Pressure 115/57 L 118/56 L 128/60 Pulse Oximetry 97 97 96 04/17/18 04:00 04/17/18 04:18 04/17/18 04:30 Temperature 98.7 F Pulse Rate 71 74 Respiratory Rate 16 16 16 Blood Pressure 120/58 L 114/55 L Pulse Oximetry 96 96 98 04/17/18 05:00 04/17/18 05:30 04/17/18 06:00 Temperature Pulse Rate 74 73 69 Respiratory Rate 16 16 15 Blood Pressure 113/55 L 122/58 L 115/58 L Pulse Oximetry 99 99 99 04/17/18 06:35 04/17/18 07:00 04/17/18 07:20 Temperature Pulse Rate 66 65 65 Respiratory Rate 16 16 16 Blood Pressure 96/53 L 184/79 H 122/58 L Pulse Oximetry 95 97 97 04/17/18 07:30 04/17/18 08:00 04/17/18 08:01 Temperature 98.7 F Pulse Rate 64 97 H 66 Respiratory Rate 16 16 16 Blood Pressure 117/58 L 157/68 H Pulse Oximetry 98 97 97 04/17/18 08:05 04/17/18 08:30 04/17/18 11:19 Temperature Pulse Rate 67 67 85 Respiratory Rate 16 16 16 Blood Pressure 160/72 H Pulse Oximetry 98 96 Intake & Output 04/16/18 04/17/18 04/17/18 18:59 06:59 18:59 Intake Total 1150 / 1150 700 / 700 Output Total 515 / 515 325 / 325 Balance 635 / 635 700 / 700 -325 / -325 Weight 69.9 kg Intake: IV 1150 / 1150 700 / 700 Diprivan 1000 mg/100 ml Inj 1, 100 / 100 200 / 200 000 mg In 100 ml @ 5 MCG/KG/MIN 2.313 mls/hr IV.CONT TITRATE PRN Rx#:[id number] Zosyn 2.25 GM Premix 50 ML @ 50 / 50 150 / 150 100 mls/hr IV.SIG Q6H [facility] Rx#: [id number] NS Inj 1,000 ML @ Wide Open IV. 1000 / 1000 SIG BOLUS ONE Rx#:[id number] fentaNYL 10 mcg/mL Premix Drip 350 / 350 2,500 mcg In 250 ml @ 50 MCG/HR 5 mls/hr IV.SIG TITRATE PRN Rx #:[id number] Oral 0 / 0 Output: Urine 0 / 0 0 / 0 Stool 0 / 0 Urine/Stool Mix 0 / 0 Gastric Drainage 515 / 515 325 / 325 Oral Orogastric Tube 515 / 515 325 / 325 Other: # Incontinent Voids 0 # Bowel Movements 0 0 # Incontinent Bowel Movements 0 - Constitutional no acute distress - Routine HEENT Exam Head: Present: normocephalic. Absent: facial swelling ENT: Present: mucous membranes moist - Routine Neck Exam Present: trachea midline. Absent: tracheal deviation - Routine Respiratory Exam Present: patient mechanically ventilated. Absent: respiratory distress - Routine Cardiovascular Exam Present: RRR - Routine Abdominal Exam Present: soft, normoactive bowel sounds. Absent: tenderness - Routine Extremities Exam Present: AV fistula. Absent: edema - Routine Neurological Exam Absent: alert - Routine Psychiatric Exam Present: unable to assess - Urinary Catheter Management Indwelling Urethral Catheter Cath placed during this visit: yes, but has since been removed by the nurse Reason for continuing: Hourly intake/output Insertion date: 04/14/18 Insertion time: 10:35 Removal date: 04/14/18 Removal time: 17:30 <Nehemiah Reyes - Last Filed: 04/17/18 12:28> Vital signs: Vital Signs 04/17/18 09:30 04/17/18 10:00 04/17/18 10:30 Temperature Pulse Rate 67 71 76 Respiratory Rate 16 16 16 Blood Pressure 118/58 L 139/65 138/66 Pulse Oximetry 98 98 99 04/17/18 11:00 04/17/18 11:19 04/17/18 11:30 Temperature Pulse Rate 81 85 87 Respiratory Rate 16 16 16 Blood Pressure 122/64 113/67 Pulse Oximetry 99 98 04/17/18 12:00 04/17/18 12:30 04/17/18 13:00 Temperature Pulse Rate 90 90 88 Respiratory Rate 16 16 16 Blood Pressure 114/65 145/67 H 140/65 Pulse Oximetry 98 96 92 L 04/17/18 13:30 04/17/18 13:56 04/17/18 14:00 Temperature Pulse Rate 90 89 Respiratory Rate 16 16 16 Blood Pressure 154/72 H 139/69 Pulse Oximetry 93 L 94 L 95 04/17/18 14:30 04/17/18 15:00 04/17/18 15:30 Temperature Pulse Rate 95 H 100 H 116 H Respiratory Rate 11 L 16 19 Blood Pressure 168/79 H 188/84 H 198/86 H Pulse Oximetry 95 93 L 93 L 04/17/18 16:00 04/17/18 16:30 04/17/18 17:00 Temperature 99.5 F Pulse Rate 115 H 117 H 107 H Respiratory Rate 19 17 15 Blood Pressure 174/79 H 192/83 H 136/72 Pulse Oximetry 90 L 95 96 04/17/18 17:42 04/17/18 17:50 04/17/18 18:00 Temperature Pulse Rate 101 H 100 H 100 H Respiratory Rate 20 16 19 Blood Pressure 141/71 H 128/66 Pulse Oximetry 95 95 94 L 04/17/18 18:04 04/17/18 18:16 04/17/18 18:20 Temperature Pulse Rate 98 H 97 H 96 H Respiratory Rate 22 20 19 Blood Pressure 156/74 H 168/75 H 167/72 H Pulse Oximetry 95 94 L 95 04/17/18 18:30 04/17/18 18:50 04/17/18 19:00 Temperature Pulse Rate 95 H 93 H 93 H Respiratory Rate 21 23 19 Blood Pressure 143/72 H 149/70 H 149/68 H Pulse Oximetry 94 L 94 L 92 L 04/17/18 19:10 04/17/18 19:20 04/17/18 19:30 Temperature Pulse Rate 93 H 88 88 Respiratory Rate 25 H 17 21 Blood Pressure 151/70 H 146/67 H 172/68 H Pulse Oximetry 90 L 95 95 04/17/18 19:40 04/17/18 19:53 04/17/18 19:57 Temperature Pulse Rate 90 87 86 Respiratory Rate 16 15 18 Blood Pressure 161/69 H 157/70 H Pulse Oximetry 94 L 95 04/17/18 20:00 04/17/18 20:40 04/17/18 21:00 Temperature 99.8 F H Pulse Rate 85 85 82 Respiratory Rate 16 18 18 Blood Pressure 147/67 H 140/80 Pulse Oximetry 94 L 95 95 04/17/18 21:28 04/17/18 21:30 04/17/18 22:00 Temperature Pulse Rate 84 82 80 Respiratory Rate 17 18 19 Blood Pressure 113/56 L 95/60 L 97/55 L Pulse Oximetry 92 L 92 L 91 L 04/17/18 22:06 04/17/18 22:31 04/17/18 23:00 Temperature Pulse Rate 80 79 Respiratory Rate 16 28 H 21 Blood Pressure 148/53 H 100/43 L Pulse Oximetry 91 L 94 L 04/17/18 23:01 04/17/18 23:43 04/17/18 23:44 Temperature Pulse Rate 78 77 Respiratory Rate 18 21 Blood Pressure 106/48 L Pulse Oximetry 94 L 96 04/17/18 23:45 04/18/18 00:00 04/18/18 00:30 Temperature 99.6 F Pulse Rate 75 75 Respiratory Rate 16 15 Blood Pressure 103/58 L 110/44 L Pulse Oximetry 96 96 95 04/18/18 01:00 04/18/18 01:30 04/18/18 02:00 Temperature Pulse Rate 75 72 71 Respiratory Rate 19 21 18 Blood Pressure 101/55 L 110/55 L 113/57 L Pulse Oximetry 95 95 95 04/18/18 02:31 04/18/18 03:00 04/18/18 03:30 Temperature Pulse Rate 72 68 68 Respiratory Rate 17 18 23 Blood Pressure 115/54 L 112/49 L 106/57 L Pulse Oximetry 94 L 95 93 L 04/18/18 04:00 04/18/18 04:14 04/18/18 04:22 Temperature 98.9 F Pulse Rate 71 71 Respiratory Rate 22 16 20 Blood Pressure 109/78 Pulse Oximetry 96 04/18/18 04:27 04/18/18 08:00 04/18/18 08:01 Temperature Pulse Rate 82 78 Respiratory Rate 18 Blood Pressure Pulse Oximetry 96 96 04/18/18 08:44 04/18/18 08:45 Temperature Pulse Rate Respiratory Rate Blood Pressure Pulse Oximetry 98 98 Intake & Output 04/17/18 04/18/18 04/18/18 18:59 06:59 18:59 Intake Total 215 / 215 1225 / 1225 Output Total 325 / 325 0 / 0 Balance -110 / -110 1225 / 1225 Weight 65.8 kg Intake: IV 215 / 215 1225 / 1225 D5W/Normal Saline Inj 1,000 ML 1000 / 1000 @ 42 mls/hr IV.CONT .[id number] [facility] Rx#:[id number] Diprivan 1000 mg/100 ml Inj 1, 40 / 40 000 mg In 100 ml @ 5 MCG/KG/MIN 2.313 mls/hr IV.CONT TITRATE PRN Rx#:[id number] Cardizem Inj 125 MG In NS Inj 125 / 125 100 ML @ 2.5 MG/HR 2.5 mls/hr IV.CONT TITRATE PRN Rx#: [id number] Zosyn 2.25 GM Premix 50 ML @ 50 / 50 100 / 100 100 mls/hr IV.SIG Q6H [facility] Rx#: [id number] fentaNYL 10 mcg/mL Premix Drip 125 / 125 2,500 mcg In 250 ml @ 50 MCG/HR 5 mls/hr IV.SIG TITRATE PRN Rx #:[id number] Oral 0 / 0 Output: Urine 0 / 0 0 / 0 Stool 0 / 0 Urine/Stool Mix 0 / 0 Gastric Drainage 325 / 325 Oral Orogastric Tube 325 / 325 Other: # Bowel Movements 0 0 # Incontinent Bowel Movements 0 - Urinary Catheter Management Indwelling Urethral Catheter Cath placed during this visit: no <KayeKulwant lorenzoBlake - Last Filed: 04/18/18 09:20> Assessment and Plan - Assessment (1) ESRD (end stage renal disease) Code(s): N18.6 - End stage renal disease Status: Chronic Plan: Patient was seen on dialysis: on 2K, blood flow rate of 320 ml/min, goal of 2.5 L. Patient gets dialyzed TTS. Monitor progress. L arm AVF, Doppler ultrasound on left arm was unremarkable. (2) Hyperkalemia Code(s): E87.5 - Hyperkalemia Status: Acute Plan: Resolved after dialysis. (3) Acute metabolic encephalopathy Code(s): G93.41 - Metabolic encephalopathy Status: Acute (4) Acute hypoxemic respiratory failure Code(s): J96.01 - Acute respiratory failure with hypoxia Status: Acute Plan: On ventilator (5) Septic shock Code(s): A41.9 - Sepsis, unspecified organism; R65.21 - Severe sepsis with septic shock Status: Resolved Plan: On broad-spectrum antibiotic (6) Emphysematous cholecystitis Code(s): K81.0 - Acute cholecystitis Status: Acute Plan: General surgery following <Nehemiah Reyes - Last Filed: 04/17/18 12:28> - Assessment (1) ESRD (end stage renal disease) Code(s): N18.6 - End stage renal disease Status: Chronic (2) Hyperkalemia Code(s): E87.5 - Hyperkalemia Status: Acute (3) Acute metabolic encephalopathy Code(s): G93.41 - Metabolic encephalopathy Status: Acute (4) Acute hypoxemic respiratory failure Code(s): J96.01 - Acute respiratory failure with hypoxia Status: Acute (5) Septic shock Code(s): A41.9 - Sepsis, unspecified organism; R65.21 - Severe sepsis with septic shock Status: Resolved (6) Emphysematous cholecystitis Code(s): K81.0 - Acute cholecystitis Status: Acute - Attending Attestation patient was seen and examined. Agree with above assessment and plan. <Blake Michel - Last Filed: 04/18/18 09:20>
--- NOTE | 2018-04-17 12:55 | P.PNGI ---
Subjective Interval history: Intubated and mechanically ventilated Receiving hemodialysis Physical Exam Vital signs: Vital Signs 04/16/18 15:56 04/16/18 16:00 04/16/18 19:30 Temperature 99.3 F Pulse Rate 79 80 Respiratory Rate 16 16 16 Blood Pressure 127/59 L Pulse Oximetry 100 04/16/18 19:34 04/16/18 20:00 04/16/18 21:00 Temperature 98.7 F Pulse Rate 79 78 Respiratory Rate 16 16 Blood Pressure 123/59 L 176/81 H Pulse Oximetry 97 04/16/18 21:31 04/16/18 22:00 04/16/18 22:18 Temperature Pulse Rate 77 76 Respiratory Rate 16 16 16 Blood Pressure 103/52 L 106/57 L Pulse Oximetry 97 97 100 04/16/18 22:30 04/16/18 23:00 04/16/18 23:22 Temperature Pulse Rate 74 74 76 Respiratory Rate 16 16 16 Blood Pressure 124/60 128/63 Pulse Oximetry 98 98 04/16/18 23:30 04/17/18 00:00 04/17/18 00:30 Temperature 97.6 F Pulse Rate 75 75 79 Respiratory Rate 16 16 16 Blood Pressure 134/63 134/63 122/59 L Pulse Oximetry 98 96 96 04/17/18 01:00 04/17/18 01:30 04/17/18 02:00 Temperature Pulse Rate 76 74 73 Respiratory Rate 16 16 16 Blood Pressure 108/57 L 119/56 L 125/58 L Pulse Oximetry 96 97 97 04/17/18 02:30 04/17/18 03:00 04/17/18 03:30 Temperature Pulse Rate 72 71 72 Respiratory Rate 16 16 16 Blood Pressure 115/57 L 118/56 L 128/60 Pulse Oximetry 97 97 96 04/17/18 04:00 04/17/18 04:18 04/17/18 04:30 Temperature 98.7 F Pulse Rate 71 74 Respiratory Rate 16 16 16 Blood Pressure 120/58 L 114/55 L Pulse Oximetry 96 96 98 04/17/18 05:00 04/17/18 05:30 04/17/18 06:00 Temperature Pulse Rate 74 73 69 Respiratory Rate 16 16 15 Blood Pressure 113/55 L 122/58 L 115/58 L Pulse Oximetry 99 99 99 04/17/18 06:35 04/17/18 07:00 04/17/18 07:20 Temperature Pulse Rate 66 65 65 Respiratory Rate 16 16 16 Blood Pressure 96/53 L 184/79 H 122/58 L Pulse Oximetry 95 97 97 04/17/18 07:30 04/17/18 08:00 04/17/18 08:01 Temperature 98.7 F Pulse Rate 64 97 H 66 Respiratory Rate 16 16 16 Blood Pressure 117/58 L 157/68 H Pulse Oximetry 98 97 97 04/17/18 08:05 04/17/18 08:30 04/17/18 11:19 Temperature Pulse Rate 67 67 85 Respiratory Rate 16 16 16 Blood Pressure 160/72 H Pulse Oximetry 98 96 Intake & Output 04/16/18 04/17/18 04/17/18 18:59 06:59 18:59 Intake Total 1150 / 1150 700 / 700 Output Total 515 / 515 325 / 325 Balance 635 / 635 700 / 700 -325 / -325 Weight 69.9 kg Intake: IV 1150 / 1150 700 / 700 Diprivan 1000 mg/100 ml Inj 1, 100 / 100 200 / 200 000 mg In 100 ml @ 5 MCG/KG/MIN 2.313 mls/hr IV.CONT TITRATE PRN Rx#:[id number] Zosyn 2.25 GM Premix 50 ML @ 50 / 50 150 / 150 100 mls/hr IV.SIG Q6H CIRILO Rx#: [id number] NS Inj 1,000 ML @ Wide Open IV. 1000 / 1000 SIG BOLUS ONE Rx#:[id number] fentaNYL 10 mcg/mL Premix Drip 350 / 350 2,500 mcg In 250 ml @ 50 MCG/HR 5 mls/hr IV.SIG TITRATE PRN Rx #:[id number] Oral 0 / 0 Output: Urine 0 / 0 0 / 0 Stool 0 / 0 Urine/Stool Mix 0 / 0 Gastric Drainage 515 / 515 325 / 325 Oral Orogastric Tube 515 / 515 325 / 325 Other: # Incontinent Voids 0 # Bowel Movements 0 0 # Incontinent Bowel Movements 0 - Constitutional chronically ill appearing - Routine HEENT Exam Head: Present: normocephalic - Routine Respiratory Exam Present: patient mechanically ventilated - Routine Cardiovascular Exam Present: RRR - Routine Abdominal Exam Present: soft, normoactive bowel sounds. Absent: tenderness, guarding, firm - Routine Skin Exam Present: dry, warm - Urinary Catheter Management Indwelling Urethral Catheter Cath placed during this visit: yes, but has since been removed by the nurse Reason for continuing: Hourly intake/output Insertion date: 04/14/18 Insertion time: 10:35 Removal date: 04/14/18 Removal time: 17:30 Results - Labs CBC & Chem 7: 04/17/18 04:00 04/17/18 04:00 Laboratory Results - last 24 hr 04/16/18 04/16/18 04/16/18 13:48 13:48 16:12 WBC RBC Hgb Hct MCV MCH MCHC RDW Plt Count MPV Prelim Diff (Auto) Neut % (Auto) Lymph % (Auto) [place] % (Auto) Eos % (Auto) Baso % (Auto) Neut # (Auto) Lymph # (Auto) [place] # (Auto) Eos # (Auto) Baso # (Auto) WBC Differential Diff Scan Differential Comment Dohle Bodies Platelet Estimate Platelet Morphology Sodium Potassium Chloride Carbon Dioxide Anion Gap BUN Creatinine Estimated GFR POC Glucose 82 Random Glucose Lactic Acid 0.8 Calcium Phosphorus Magnesium Total Bilirubin AST ALT Alkaline Phosphatase Troponin I 1.30 H* D Total Protein Albumin TSH 1.290 Random Vancomycin Digoxin 04/16/18 04/16/18 04/16/18 20:40 23:55 23:57 WBC RBC Hgb Hct MCV MCH MCHC RDW Plt Count MPV Prelim Diff (Auto) Neut % (Auto) Lymph % (Auto) [place] % (Auto) Eos % (Auto) Baso % (Auto) Neut # (Auto) Lymph # (Auto) [place] # (Auto) Eos # (Auto) Baso # (Auto) WBC Differential Diff Scan Differential Comment Dohle Bodies Platelet Estimate Platelet Morphology Sodium Potassium Chloride Carbon Dioxide Anion Gap BUN Creatinine Estimated GFR POC Glucose 55 L 63 L Random Glucose Lactic Acid 0.7 Calcium Phosphorus Magnesium Total Bilirubin AST ALT Alkaline Phosphatase Troponin I Total Protein Albumin TSH Random Vancomycin Digoxin 04/17/18 04/17/18 04/17/18 00:10 00:57 01:50 WBC RBC Hgb Hct MCV MCH MCHC RDW Plt Count MPV Prelim Diff (Auto) Neut % (Auto) Lymph % (Auto) [place] % (Auto) Eos % (Auto) Baso % (Auto) Neut # (Auto) Lymph # (Auto) [place] # (Auto) Eos # (Auto) Baso # (Auto) WBC Differential Diff Scan Differential Comment Dohle Bodies Platelet Estimate Platelet Morphology Sodium Potassium Chloride Carbon Dioxide Anion Gap BUN Creatinine Estimated GFR POC Glucose 158 H Random Glucose Lactic Acid 1.1 Calcium Phosphorus Magnesium Total Bilirubin AST ALT Alkaline Phosphatase Troponin I Total Protein Albumin TSH Random Vancomycin 24.1 Digoxin 04/17/18 04/17/18 04/17/18 04:00 04:00 04:00 WBC 10.6 RBC 2.76 L Hgb 9.2 L Hct 27.1 L MCV 98.3 MCH 33.3 MCHC 33.9 RDW 19.2 H Plt Count 183 MPV 9.5 Prelim Diff (Auto) Slide review pending Neut % (Auto) 75.4 H Lymph % (Auto) 13.9 [place] % (Auto) 8.4 H Eos % (Auto) 1.6 Baso % (Auto) 0.7 Neut # (Auto) 8.0 H Lymph # (Auto) 1.5 [place] # (Auto) 0.9 Eos # (Auto) 0.2 Baso # (Auto) 0.1 WBC Differential . Diff Scan Auto diff confirmed Differential Comment . Dohle Bodies Present H Platelet Estimate Normal Platelet Morphology Enlarged H Sodium 143 Potassium 5.0 Chloride 104 Carbon Dioxide 20.8 L Anion Gap 18 H BUN 95 H Creatinine 10.12 H* Estimated GFR 4 L POC Glucose Random Glucose 72 L Lactic Acid 0.6 Calcium 7.7 L Phosphorus 7.8 H Magnesium 2.5 Total Bilirubin 1.0 AST 423 H ALT 560 H Alkaline Phosphatase 74 Troponin I Total Protein 7.2 D Albumin 2.4 L D TSH Random Vancomycin Digoxin 3.8 H* 04/17/18 04/17/18 05:57 12:08 WBC RBC Hgb Hct MCV MCH MCHC RDW Plt Count MPV Prelim Diff (Auto) Neut % (Auto) Lymph % (Auto) [place] % (Auto) Eos % (Auto) Baso % (Auto) Neut # (Auto) Lymph # (Auto) [place] # (Auto) Eos # (Auto) Baso # (Auto) WBC Differential Diff Scan Differential Comment Dohle Bodies Platelet Estimate Platelet Morphology Sodium Potassium Chloride Carbon Dioxide Anion Gap BUN Creatinine Estimated GFR POC Glucose 73 86 Random Glucose Lactic Acid Calcium Phosphorus Magnesium Total Bilirubin AST ALT Alkaline Phosphatase Troponin I Total Protein Albumin TSH Random Vancomycin Digoxin Microbiology 04/15/18 13:55 Blood - Peripheral Aerobic Blood Culture - Preliminary No growth in 2 days 04/15/18 13:55 Blood - Peripheral Anaerobic Blood Culture - Preliminary No growth in 2 days 04/15/18 11:30 Blood - Line Aerobic Blood Culture - Preliminary No growth in 2 days 04/15/18 11:30 Blood - Line Anaerobic Blood Culture - Preliminary No growth in 2 days 04/14/18 10:20 Blood - Peripheral Aerobic Blood Culture - Preliminary No growth in 3 days 04/14/18 10:20 Blood - Peripheral Anaerobic Blood Culture - Preliminary No growth in 3 days 04/14/18 10:25 Blood - Peripheral Aerobic Blood Culture - Preliminary No growth in 3 days 04/14/18 10:25 Blood - Peripheral Anaerobic Blood Culture - Preliminary No growth in 3 days 04/14/18 15:15 Sputum - Endotracheal Gram Stain - Final 04/14/18 15:15 Sputum - Endotracheal Sputum Culture - Final Heavy growth normal respiratory black 04/14/18 10:35 Clean Catch Urine Urine Culture - Final No growth in 48 hours - Imaging Impressions Extremity Arterial Study 04/15/18 00:00 CONCLUSION: 1. Significantly limited examination due to unobtainable pressures in the forearms bilaterally. 2. Unobtainable pressures and absence of waveforms in the left hand. Cannot exclude steal from patient's left upper extremity brachiobasilic fistula. Chest X-Ray 04/17/18 06:00 CONCLUSION: Minimal right lung base opacity. Assessment and Plan - Plan This is a 72-year-old female who entered the hospital on 04/14/2018 after being found unresponsive per her roommate. According to the record and staff patient was intubated in the emergency room setting and received multiple lab work and aggressive therapy there was a CAT scan that showed distended gallbladder with cholelithiasis and liver ultrasound that showed positive cholelithiasis and gallbladder sludge and a small amount of air in the fundus of the gallbladder. Lab work was reviewed which showed initial hemoglobin 12.6 now decreased to 10.6 , initial WBC count 12.5 now normalized to 8.4, PT/INR 1.3, lipase 47, bilirubin 0.7, AST 1050, ALT 8:06 AM positive troponin IV 0.35. Gastroenterology was consulted to assist in her plan of care but it is noted after examination of the patient and per the record patient is acutely critically ill in the intensive care setting. There is currently no family present but according to staff patient has a daughter and a son. Transaminitis, these elevated liver enzymes could be related to shock liver since patient was found unresponsive. She will need continuing monitoring of these labs for any acute changes Anemia current hemoglobin 10.6 which is a mild decrease from admission. Patient has NG tube which shows dark bilious fluid return but also some possible coffee-ground debris noted initially in the NG tube. We will need to rule out any GI bleeding Ultrasound of the liver did show positive gallstones and sludge and recommendation was for MRCP but this will need to be done when patient is stable. MRCP has been ordered but probably on hold for this p.m. History of end-stage renal disease on hemodialysis Monday and Monday schedule. Patient has had cultures done for possible sepsis Left upper extremity is cool to the touch right upper extremity is warm, both lower extremities are cool. Possible non-STEMI cardiology involved Possible gallbladder disease rule out Ultrasound gallbladder contains sludge and stones. However, no additional findings are present to definitively indicate acute cholecystitis. Common bile duct is enlarged but contains no visible stone. Given the pain one could consider MRCP for further evaluation of the common duct stone as a cause for the duct dilatation in right upper quadrant pain. Atrophic right kidney with changes suggesting chronic medical renal disease. There is a complex cystic lesion in the mid kidney and renal sinus measuring up to 3.5 cm. At some point ideally be further characterized with renal protocol MRI with and without intravenous contrast. This should be performed on an elective basis when condition permits. 04/16/2018 -Patient intubated and mechanically ventilated. Plan for MRCP today. Orogastric tube to low intermittent suction 100 mL's of dark green bilious fluid noted. No obvious bleeding noted. -Transaminitis-likely due to shock liver as patient was found unresponsive, will continue to monitor LFTs -WBC 12.4 hemoglobin 10.3 hematocrit 31.6 INR 1.3 total bilirubin 0.9 AST 475 ALT 632 alk phos 58 ammonia less than 10 -04/16/2018 MRCP revealed the following findings: 1. Cholelithiasis with multiple small gallstones layering dependently. There is no gallbladder wall thickening or inflammatory change. No gas is visualized on the MRI. 2. Common bile duct measuring up to 1 cm with no filling defects or mass. This could represent distal obstruction or prior passage of stones. 3. Multiple benign-appearing small cystic structures in the pancreas. 4. Bilateral simple renal cysts as well as a more complex right parapelvic cyst. 04/17/2018 Intubated and mechanically ventilated. Orogastric tube to low intermittent wall suction, minimal scant drainage dark green bilious fluid. No obvious bleeding noted. Transaminitis--trending down, total bilirubin 1.0 AST 423 ALT 560 alk phos 74 WBC 10.6 hemoglobin 9.2 hematocrit 27.1 Decrease probability of choledocholithiasis, likely shock liver in view of liver panel Continue present conservative treatment Plan -N.p.o. -Continue orogastric tube to low intermittent wall suction -Monitor for bleeding -Monitor labs, hemoglobin and hematocrit -Continue to monitor liver function tests-possible shock liver, trending down -Need for ERCP will be based on progression of liver profile -Supportive care -Further recommendations to follow This patient has been seen by myself and Dr. Catherine and this note is written on his behalf - Attending Attestation Dr. Catherine
--- NOTE | 2018-04-17 14:01 | P.PNID ---
Subjective Remarks: ID Coverage is a 72 y/o WF with PMHx of CKD s/p attempt at PD catheter placement due to non compliance, also Left Brachiocephalic AV fistula on 2017 by . Patient was reportedly found with decreased level of consciousness. Room mates do not know much about her medical history and reportedly seen her normal the night prior. Per records EMS gave her Narcan and there was improvement noted. No family nos on chart and old records could not be assessed. Patients past medical records from prior visits could not be accessed by me but patient has CKD and prior Bradycardia on prior admit. Also patient has a history of stroke diabetes hypertension GERD. On admission she had leukocytosis of 12,000 with a left shift. Metabolic acidosis on ABG. Lactic acid 6.Troponins elevated. Cr at 9.6. Normal lipase, LFTs in thousands. CT with air concerning for emphysematous cholecystitis. At the time of my evaluation patient is in IMC, not on pressors, has received fluid bolus amount not documented per RN. She is currently intubated, not sedated, opens eyes, does not follow commands for me. No obvious focal deficit. ID consulted for evaluation and Mment of Severe Sepsis, possible acute cholecystitis. Notes reviewed Sedated on the vent Temps ok BP ok Had AF RVR overnight, in NSR today Had HD today WBC ok LUE bluish discoloration of fingers. Cool clammy fingers. s/p MRCP Labs and C/S reviewed Antibiotics: zosyn IV Vanco IV Lines: Line sites ok Past Medical History: reviewed Allergies/Adverse Reactions: Allergies No Known Allergies Allergy (Verified 01/22/18 10:23) Objective Vital Signs 04/16/18 15:56 04/16/18 16:00 04/16/18 19:30 Temperature 99.3 F Pulse Rate 79 80 Respiratory Rate 16 16 16 Blood Pressure 127/59 L Pulse Oximetry 100 04/16/18 19:34 04/16/18 20:00 04/16/18 21:00 Temperature 98.7 F Pulse Rate 79 78 Respiratory Rate 16 16 Blood Pressure 123/59 L 176/81 H Pulse Oximetry 97 04/16/18 21:31 04/16/18 22:00 04/16/18 22:18 Temperature Pulse Rate 77 76 Respiratory Rate 16 16 16 Blood Pressure 103/52 L 106/57 L Pulse Oximetry 97 97 100 04/16/18 22:30 04/16/18 23:00 04/16/18 23:22 Temperature Pulse Rate 74 74 76 Respiratory Rate 16 16 16 Blood Pressure 124/60 128/63 Pulse Oximetry 98 98 04/16/18 23:30 04/17/18 00:00 04/17/18 00:30 Temperature 97.6 F Pulse Rate 75 75 79 Respiratory Rate 16 16 16 Blood Pressure 134/63 134/63 122/59 L Pulse Oximetry 98 96 96 04/17/18 01:00 04/17/18 01:30 04/17/18 02:00 Temperature Pulse Rate 76 74 73 Respiratory Rate 16 16 16 Blood Pressure 108/57 L 119/56 L 125/58 L Pulse Oximetry 96 97 97 04/17/18 02:30 04/17/18 03:00 04/17/18 03:30 Temperature Pulse Rate 72 71 72 Respiratory Rate 16 16 16 Blood Pressure 115/57 L 118/56 L 128/60 Pulse Oximetry 97 97 96 04/17/18 04:00 04/17/18 04:18 04/17/18 04:30 Temperature 98.7 F Pulse Rate 71 74 Respiratory Rate 16 16 16 Blood Pressure 120/58 L 114/55 L Pulse Oximetry 96 96 98 04/17/18 05:00 04/17/18 05:30 04/17/18 06:00 Temperature Pulse Rate 74 73 69 Respiratory Rate 16 16 15 Blood Pressure 113/55 L 122/58 L 115/58 L Pulse Oximetry 99 99 99 04/17/18 06:35 04/17/18 07:00 04/17/18 07:20 Temperature Pulse Rate 66 65 65 Respiratory Rate 16 16 16 Blood Pressure 96/53 L 184/79 H 122/58 L Pulse Oximetry 95 97 97 04/17/18 07:30 04/17/18 08:00 04/17/18 08:01 Temperature 98.7 F Pulse Rate 64 97 H 66 Respiratory Rate 16 16 16 Blood Pressure 117/58 L 157/68 H Pulse Oximetry 98 97 97 04/17/18 08:05 04/17/18 08:30 04/17/18 11:19 Temperature Pulse Rate 67 67 85 Respiratory Rate 16 16 16 Blood Pressure 160/72 H Pulse Oximetry 98 96 Intake & Output 04/16/18 04/17/18 04/17/18 18:59 06:59 18:59 Intake Total 1150 / 1150 700 / 700 Output Total 515 / 515 325 / 325 Balance 635 / 635 700 / 700 -325 / -325 Weight 69.9 kg Intake: IV 1150 / 1150 700 / 700 Diprivan 1000 mg/100 ml Inj 1, 100 / 100 200 / 200 000 mg In 100 ml @ 5 MCG/KG/MIN 2.313 mls/hr IV.CONT TITRATE PRN Rx#:[id number] Zosyn 2.25 GM Premix 50 ML @ 50 / 50 150 / 150 100 mls/hr IV.SIG Q6H CIRILO Rx#: [id number] NS Inj 1,000 ML @ Wide Open IV. 1000 / 1000 SIG BOLUS ONE Rx#:[id number] fentaNYL 10 mcg/mL Premix Drip 350 / 350 2,500 mcg In 250 ml @ 50 MCG/HR 5 mls/hr IV.SIG TITRATE PRN Rx #:[id number] Oral 0 / 0 Output: Urine 0 / 0 0 / 0 Stool 0 / 0 Urine/Stool Mix 0 / 0 Gastric Drainage 515 / 515 325 / 325 Oral Orogastric Tube 515 / 515 325 / 325 Other: # Incontinent Voids 0 # Bowel Movements 0 0 # Incontinent Bowel Movements 0 04/15/18 13:55 Blood - Peripheral Aerobic Blood Culture - Preliminary No growth in 2 days 04/15/18 13:55 Blood - Peripheral Anaerobic Blood Culture - Preliminary No growth in 2 days 04/15/18 11:30 Blood - Line Aerobic Blood Culture - Preliminary No growth in 2 days 04/15/18 11:30 Blood - Line Anaerobic Blood Culture - Preliminary No growth in 2 days 04/14/18 10:20 Blood - Peripheral Aerobic Blood Culture - Preliminary No growth in 3 days 04/14/18 10:20 Blood - Peripheral Anaerobic Blood Culture - Preliminary No growth in 3 days 04/14/18 10:25 Blood - Peripheral Aerobic Blood Culture - Preliminary No growth in 3 days 04/14/18 10:25 Blood - Peripheral Anaerobic Blood Culture - Preliminary No growth in 3 days 04/14/18 15:15 Sputum - Endotracheal Gram Stain - Final 04/14/18 15:15 Sputum - Endotracheal Sputum Culture - Final Heavy growth normal respiratory black 04/14/18 10:35 Clean Catch Urine Urine Culture - Final No growth in 48 hours Lab - Hematology Results 04/16/18 04/17/18 04:30 04:00 WBC 12.4 H 10.6 RBC 3.22 L 2.76 L Hgb 10.3 L 9.2 L Hct 31.6 L 27.1 L MCV 98.2 98.3 MCH 31.9 33.3 MCHC 32.5 33.9 RDW 19.5 H 19.2 H Plt Count 217 183 MPV 8.8 9.5 Prelim Diff (Auto) Slide review pending Slide review pending Neut % (Auto) 81.3 H 75.4 H Lymph % (Auto) 13.6 13.9 [place] % (Auto) 3.5 8.4 H Eos % (Auto) 1.0 1.6 Baso % (Auto) 0.6 0.7 Neut # (Auto) 10.1 H 8.0 H Lymph # (Auto) 1.7 1.5 [place] # (Auto) 0.4 0.9 Eos # (Auto) 0.1 0.2 Baso # (Auto) 0.1 0.1 WBC Differential Manual diff final . Diff Scan Auto diff confirmed Seg Neuts % (Manual) 63 Band Neuts % (Manual) 14 H Lymphocytes % (Manual) 19 Monocytes % (Manual) 2 Eosinophils % (Manual) 1 Basophils % (Manual) 1 Abs Neuts (Manual) 9.5 H Differential Comment . . Dohle Bodies Present H Present H Platelet Estimate Normal Normal Platelet Morphology Enlarged H Enlarged H Lab - Chemistry Results 04/15/18 04/15/18 04/15/18 17:35 22:30 23:17 Sodium Potassium Chloride Carbon Dioxide Anion Gap BUN Creatinine Estimated GFR POC Glucose 102 101 Random Glucose Lactic Acid 1.6 Calcium Phosphorus Magnesium Total Bilirubin AST ALT Alkaline Phosphatase Ammonia Total Creatine Kinase CK-MB (CK-2) CK-MB (CK-2) % Troponin I Total Protein Albumin TSH 04/16/18 04/16/18 04/16/18 04:30 04:30 04:30 Sodium 141 Potassium 4.5 Chloride 101 Carbon Dioxide 22.8 Anion Gap 17 H BUN 79 H Creatinine 9.39 H Estimated GFR 4 L POC Glucose Random Glucose 94 Lactic Acid 1.6 Calcium 8.0 L Phosphorus 7.6 H D Magnesium 2.3 Total Bilirubin 0.9 AST 475 H ALT 632 H Alkaline Phosphatase 58 Ammonia Less than 10 L Total Creatine Kinase 506 H CK-MB (CK-2) 6.2 H CK-MB (CK-2) % 1.2 Troponin I Total Protein 7.8 Albumin 3.1 L [facility] 04/16/18 04/16/18 04/16/18 08:36 12:10 13:48 Sodium Potassium Chloride Carbon Dioxide Anion Gap BUN Creatinine Estimated GFR POC Glucose 91 81 Random Glucose Lactic Acid 0.8 Calcium Phosphorus Magnesium Total Bilirubin AST ALT Alkaline Phosphatase Ammonia Total Creatine Kinase CK-MB (CK-2) CK-MB (CK-2) % Troponin I Total Protein Albumin [facility] 04/16/18 04/16/18 04/16/18 13:48 16:12 20:40 Sodium Potassium Chloride Carbon Dioxide Anion Gap BUN Creatinine Estimated GFR POC Glucose 82 Random Glucose Lactic Acid 0.7 Calcium Phosphorus Magnesium Total Bilirubin AST ALT Alkaline Phosphatase Ammonia Total Creatine Kinase CK-MB (CK-2) CK-MB (CK-2) % Troponin I 1.30 H* D Total Protein Albumin TSH 1.290 04/16/18 04/16/18 04/17/18 23:55 23:57 00:57 Sodium Potassium Chloride Carbon Dioxide Anion Gap BUN Creatinine Estimated GFR POC Glucose 55 L 63 L 158 H Random Glucose Lactic Acid Calcium Phosphorus Magnesium Total Bilirubin AST ALT Alkaline Phosphatase Ammonia Total Creatine Kinase CK-MB (CK-2) CK-MB (CK-2) % Troponin I Total Protein Albumin [facility] 04/17/18 04/17/18 04/17/18 01:50 04:00 04:00 Sodium 143 Potassium 5.0 Chloride 104 Carbon Dioxide 20.8 L Anion Gap 18 H BUN 95 H Creatinine 10.12 H* Estimated GFR 4 L POC Glucose Random Glucose 72 L Lactic Acid 1.1 0.6 Calcium 7.7 L Phosphorus 7.8 H Magnesium 2.5 Total Bilirubin 1.0 AST 423 H ALT 560 H Alkaline Phosphatase 74 Ammonia Total Creatine Kinase CK-MB (CK-2) CK-MB (CK-2) % Troponin I Total Protein 7.2 D Albumin 2.4 L D [facility] 04/17/18 04/17/18 05:57 12:08 Sodium Potassium Chloride Carbon Dioxide Anion Gap BUN Creatinine Estimated GFR POC Glucose 73 86 Random Glucose Lactic Acid Calcium Phosphorus Magnesium Total Bilirubin AST ALT Alkaline Phosphatase Ammonia Total Creatine Kinase CK-MB (CK-2) CK-MB (CK-2) % Troponin I Total Protein Albumin [facility] Imaging: ITS Impressions Head CT 04/14/18 09:44 CONCLUSION: 1. 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 2. No evidence of acute infarct, hemorrhage, mass or edema. 3. No significant change compared to 04/12/2017. . Abdomen/Pelvis CT 04/14/18 10:59 CONCLUSION: 1. Distended gallbladder with cholelithiasis and minimal gas in the fundus. There is no significant pericholecystic fluid or inflammation. 2. Simple left renal cyst. 3. Bibasilar airspace disease. Liver Ultrasound 04/14/18 12:44 CONCLUSION: 1. Gallbladder contains sludge and stones. However, no additional findings are present to definitively indicate acute cholecystitis. 2. Common bile duct is enlarged but contains no visible stone. Given the pain one could consider MRCP for further evaluation of the common duct stone as a cause for the duct dilatation in right upper quadrant pain. 3. Atrophic right kidney with changes suggesting chronic medical renal disease. There is a complex cystic lesion in the mid kidney and renal sinus measuring up to 3.5 cm. At some point ideally be further characterized with renal protocol MRI with and without intravenous contrast. This should be performed on an elective basis when condition permits. Extremity Arterial Study 04/15/18 00:00 CONCLUSION: 1. Significantly limited examination due to unobtainable pressures in the forearms bilaterally. 2. Unobtainable pressures and absence of waveforms in the left hand. Cannot exclude steal from patient's left upper extremity brachiobasilic fistula. Upper Extremity Ultrasound 04/15/18 00:00 CONCLUSION: Patent left AV fistula. Venous Doppler Study 04/15/18 00:00 CONCLUSION: No evidence of DVT. Cholangiopancreatography MRI 04/16/18 07:10 CONCLUSION: 1. Cholelithiasis with multiple small gallstones layering dependently. There is no gallbladder wall thickening or inflammatory change. No gas is visualized on the MRI. 2. Common bile duct measuring up to 1 cm with no filling defects or mass. This could represent distal obstruction or prior passage of stones. 3. Multiple benign-appearing small cystic structures in the pancreas. 4. Bilateral simple renal cysts as well as a more complex right parapelvic cyst. Chest X-Ray 04/17/18 06:00 CONCLUSION: Minimal right lung base opacity. Physical Exam: GENERAL: Sedated, on the vent, NAD SKIN: Cool and dry, no generalized rash HEAD: Atraumatic. Normocephalic. No temporal or scalp tenderness. EYES: Pupils equal round and reactive. Scleral icterus. No injection or drainage. No petechia ENT: Orally intubated NECK: Trachea midline. Supple, nontender, no meningeal signs. CARDIOVASCULAR: HS audible. RESPIRATORY: Air entry equal bilaterally. Clear to auscultation bilaterally. GASTROINTESTINAL: Abdomen soft, mildly distended, tender RUQ. Scars on abdomen ? PD cath insertion attempts related. MUSCULOSKELETAL: Lower Extremities with no evidence of infection. Left AV fistula site ok. Left fingers bluish hue, cold clammy. NEUROLOGICAL: Sedated Psych could not be assessed IV line sites ok. HD cath and CL site ok. Assessment and Plan - Plan Severe Sepsis Probable acute emphysematous cholecystitis (CT findings and RUQ tenderness) CKD Attempted PD catheter placement in 01/2018. AV fistula LUE placed on 01/22/2018. Acute metabolic encephalopathy: sepsis, metabolic. Recs: Continue Zosyn IV DC Vanco IV Follow cultures Monitor progress.
[2018-04-17] MEDS: Heparin - SQ 10,000 UNITS/ML Vial SQ SCH ×2 (14:13→20:38)
[2018-04-17] MEDS: Mupirocin 2% Nasal Oint Topical Syringe EACH NARE SCH ×2 (14:14→20:38)
[2018-04-17] MEDS: Chlorhexidine 0.12% Oral Kit 15 ML UDC OROPHARYNG SCH ×2 (14:15→20:28)
--- NOTE | 2018-04-17 15:57 | P.DIET ---
Nutritional Evaluation Screening comments: NPO Alert. Pt was admitted on 04/14 with dx of sepsis and has been npo since admission. Currently intubated with og-t to LIWS. Please consult RD if nutrition support is needed.
[2018-04-17] MEDS: dilTIAZem Inj 125 MG in Sodium Chlor 0.9% Inj 100 ML IV.CONT PRN ×2 (16:37→21:58)
[2018-04-17] MEDS: fentaNYL Citrate Inj 100 MCG/2 ML Ampul IV.PUSH PRN (21:36)
[2018-04-18] MEDS: Insulin NovoLOG Aspart Correctional Sugar Inj SQ SCH ×5 (00:09→23:26)
[2018-04-18] MEDS: Oral Hygiene Kit OROPHARYNG SCH ×5 (00:09→23:26)
[2018-04-18] MEDS: Dextrose 5%/NaCl 0.9% Inj 1,000 ML IV.CONT SCH ×2 (00:09→23:58)
[2018-04-18] MEDS: fentaNYL Citrate Inj 100 MCG/2 ML Ampul IV.PUSH PRN ×7 (00:09→23:35)
[2018-04-18] MEDS: Piperacil/Tazo 2.25 GM Premix 50 ML IV.SIG SCH ×4 (01:09→19:37)
[2018-04-18] MEDS: Pantoprazole Inj 40 MG Vial IV.PUSH SCH ×2 (02:29→14:00)
[2018-04-18] MEDS: Artificial Tears Opth Drops 15 ML Bottle EACH EYE SCH ×3 (02:29→18:48)
[2018-04-18 03:48] LABS: Baso % (Auto) 0.5 % (0.0-2.0); Eos % (Auto) 0.4 % (0.0-4.0); Hematocrit 29.3 % (35.0-46.0); Hemoglobin 9.7 gm/dL (11.6-15.3); Lymph # (Auto) 0.9 th/mm3 (1.0-4.8); Mean Corpuscular Hemoglobin 32.5 pg (27.0-34.0); Mean Corpuscular Volume 98.7 fL (80.0-100.0); Mean Platelet Volume 9.3 fL (7.0-11.0); Mono # (Auto) 1.2 th/mm3 (0.0-0.9); Mono % (Auto) 13.6 % (0.0-8.0); Neut # (Auto) 6.7 th/mm3 (1.8-7.7); Neut % (Auto) 75.5 % (16.0-70.0); Platelet Count 206 th/mm3 (150-450); Red Blood Count 2.97 mil/mm3 (4.00-5.30); Red Cell Distribution Width 18.6 % (11.6-17.2); White Blood Count 8.8 th/mm3 (4.0-11.0)
[2018-04-18] MEDS: Chlorhexidine Gluconate 2% 1 Pack (2 Cloths) TOPICAL SCH (04:14)
[2018-04-18 04:25] LABS: Lymphocytes 19 % (9-44); Metamyelocytes 2 % (0-1); Monocytes 9 % (0-8); Myelocytes 1 % (0-0); Platelet Estimate Normal (Normal)
[2018-04-18 04:28] LABS: Dohle Bodies Present; Platelet Morphology Normal (Normal)
[2018-04-18 04:30] LABS: Alanine Aminotransferase 460 U/L (10-53); Albumin 2.6 g/dL (3.4-5.0); Alkaline Phosphatase 95 U/L (45-117); Anion Gap 13 meq/L (5-15); Aspartate Aminotransferase 217 U/L (15-37); Blood Urea Nitrogen 56 mg/dL (7-18); Calcium 8.6 mg/dL (8.5-10.1); Carbon Dioxide 27.9 meq/L (21.0-32.0); Chloride 100 meq/L (98-107); Creatine Kinase 566 U/L (26-192); Glomerular Filtration Rate 6 mL/min (>89); Glucose,Random 134 mg/dL (74-106); Lipase 217 U/L (73-393); Magnesium 2.4 mg/dL (1.5-2.5); Phosphorus 9.2 mg/dL (2.5-4.9); Potassium 4.9 meq/L (3.5-5.1); Sodium 141 meq/L (136-145); Total Protein 7.8 g/dL (6.4-8.2)
[2018-04-18 05:13] LABS: CKMB Percent 1.9 % (0.0-4.0); Creatine Kinase MB 10.6 ng/mL (0.5-3.6)
--- NOTE | 2018-04-18 06:02 | XR ---
EXAM DATE: 04/18/2018 5:58 AM EST AGE/SEX: 72 years / Female INDICATIONS: Respiratory failure. CLINICAL DATA: This is the patient's subsequent encounter. Patient reports that signs and symptoms h ave been present for 3 days and indicates a pain score of Nonresponsive. MEDICAL/SURGICAL HISTORY: Non-responsive. Non-responsive. COMPARISON: [facility] [place], CHEST 1V SINGLE AP, 04/17/2018. . FINDINGS: 2 AP views of the chest. Endotracheal tube is no longer seen. Nasogastric tube, right IJ central veno us catheter and left subclavian central venous catheter remain in place. Minimal right lung base opac ity unchanged. No evidence of pleural effusion or pneumothorax. CONCLUSION: 1. Endotracheal tube no longer seen. 2. Minimal right lung base opacity unchanged. Electronically signed by: Mil Lopez MD 04/18/2018 6:01 AM EST
[2018-04-18] MEDS: Chlorhexidine 0.12% Oral Kit 15 ML UDC OROPHARYNG SCH ×2 (07:54→19:37)
--- NOTE | 2018-04-18 08:44 | P.PNCA ---
Subjective Interval history: Denies dyspnea, CP, dizziness, palpitations. Medications and Allergies Active Medications: Active Medications Acetaminophen (Tylenol) 650 mg PO UNSCH PRN PRN Reason: SEE LABEL COMMENTS Albuterol (Duoneb Neb (Princess)) 1 ampul NEB Q4HR NEB [facility] Last Admin: 04/18/18 08:01 Dose: 1 ampul Albuterol (Albuterol Neb (Prn)) 2.5 mg NEB Q2HR NEB PRN PRN Reason: DYSPNEA Artificial Tears (Tears Naturale Opth Drops) 1 drop EACH EYE Q8H [facility] Last Admin: 04/18/18 02:29 Dose: 1 drop Aspirin (Aspirin Chew) 81 mg PO DAILY [facility] Last Admin: 04/17/18 14:40 Dose: 81 mg Chlorhexidine Gluconate (Chlorhexidine 2% Cloth) 3 pack TOPICAL DAILY@0400 [facility] Stop: 04/20/18 03:59 Last Admin: 04/18/18 04:14 Dose: 3 pack Chlorhexidine Gluconate (Chlorhexidine 2% Cloth) 3 pack TOPICAL DAILY@0400 PRN PRN Reason: Extra cloth needed Stop: 04/20/18 03:59 Chlorhexidine Gluconate (Peridex 0.12% Oral Kit) 15 ml OROPHARYNG BID@0800, 2000 [facility] Last Admin: 04/18/18 07:54 Dose: Not Given Clonidine HCl (Catapres) 0.1 mg PO UNSCH PRN PRN Reason: SEE LABEL COMMENTS Dextrose (D50w Vial) 50 ml IV.PUSH UNSCH PRN PRN Reason: PER HYPOGLYCEMIA PROTOCOL Diltiazem HCl (Cardizem Cd 24hr) 180 mg PO DAILY [facility] Diphenhydramine HCl (Benadryl) 25 mg PO UNSCH PRN PRN Reason: SEE LABEL COMMENTS Fentanyl Citrate (Fentanyl Inj) 25 mcg IV.PUSH Q3H PRN PRN Reason: pain >5/10 Last Admin: 04/18/18 06:24 Dose: 25 mcg Gelatin (Gelfoam 12 Mm/7 Mm Topical) 1 foam TOPICAL PRN PRN PRN Reason: help stop bleeding from site Gentamicin Sulfate (Gentamicin Inj) 20 mg OTHER WITH DIALYSIS PRN PRN Reason: Dwell Gentamycin Lock Last Admin: 04/14/18 15:20 Dose: 20 mg Glucagon (Glucagon Inj) 1 mg OTHER PRN PRN PRN Reason: for Hypoglycemia Protocol Heparin Sodium (Porcine) (Heparin Inj) 5,000 units SQ Q12HR [facility] Last Admin: 04/17/18 20:38 Dose: 5,000 units Heparin Sodium (Porcine) (Heparin Inj) 8,000 units OTHER WITH DIALYSIS PRN PRN Reason: for machine prime Heparin Sodium (Porcine) (Heparin Inj) 1,000 units OTHER WITH DIALYSIS PRN PRN Reason: Dwell Heparin to Fill Catheter Last Admin: 04/14/18 15:19 Dose: 1,000 units Propofol (Diprivan 1000 Mg/100 Ml Inj) 1,000 mg in 100 mls @ 2.313 mls/hr IV.CONT TITRATE PRN; Protocol PRN Reason: Per Protocol Last Titration: 04/17/18 16:36 Dose: 0 mcg/kg/min, 0 mls/hr Piperacillin/Tazobactam/Dextrose (Zosyn 2.25 Gm Premix) 50 mls @ 100 mls/hr IV.SIG Q6H [facility] Last Admin: 04/18/18 07:53 Dose: 100 mls/hr Sodium Chloride (Ns Inj) 1,000 mls @ 0 mls/hr OTHER .Q0M PRN PRN Reason: for prime and rinse back Sodium Chloride (Ns Inj) 1,000 mls @ 200 mls/hr OTHER .Q5H PRN PRN Reason: for dialyzer flush PRN Sodium Chloride (Ns Inj) 1,000 mls @ 0 mls/hr IV.CONT .Q0M PRN PRN Reason: hypotension / volume replace Albumin Human (Flexbumin 25% Inj) 100 mls @ 60 mls/hr IV.SIG WITH DIALYSIS PRN PRN Reason: hypotension / volume replace Last Infusion: 04/14/18 15:35 Dose: Infused Phenylephrine HCl 160 mg/ (Sodium Chloride) 500 mls @ 7.5 mls/hr IV.CONT TITRATE PRN; Protocol PRN Reason: See protol Dextrose/Sodium Chloride (D5w/Normal Saline Inj) 1,000 mls @ 42 mls/hr IV.CONT .[id number] [facility] Last Admin: 04/18/18 00:09 Dose: 42 mls/hr Insulin Aspart (Novolog Insulin Correctional Sugar Inj) 0 unit SQ Q6HR [facility]; Protocol Last Admin: 04/18/18 05:42 Dose: Not Given Mannitol (Mannitol Inj) 12.5 gm IV.PUSH UNSCH PRN PRN Reason: hypotension / volume replace Miscellaneous Medication () 1 each OROPHARYNG 0000,0400,1200,1600 [facility] Last Admin: 04/18/18 04:14 Dose: Not Given Mupirocin (Bactroban 2% Nasal Oint) 1 applicatio EACH NARE BID [facility] Last Admin: 04/17/18 20:38 Dose: 1 applicatio Nitroglycerin (Nitrostat Sl) 0.4 mg SL Q5M PRN PRN Reason: CHEST PAIN Ondansetron HCl (Zofran Inj) 4 mg IV.PUSH UNSCH PRN PRN Reason: NAUSEA OR VOMITING Pantoprazole Sodium (Protonix Inj) 40 mg IV.PUSH Q12H [facility] Last Admin: 04/18/18 02:29 Dose: 40 mg Sodium Chloride (Ns Flush) 5 ml IV.FLUSH PRN PRN PRN Reason: flush each lumen during HD Terbutaline Sulfate (Brethine Inj) 1 mg SQ UNSCH PRN PRN Reason: For Extravasation Allergies Allergy/AdvReac Type Severity Reaction Status Date / Time No Known Allergies Allergy Verified 01/22/18 10:23 Home Medications Medication Instructions Recorded Confirmed Type clonidine HCl 0.1 mg PO DAILY PRN 01/22/18 01/22/18 History furosemide 80 mg PO DAILY 01/22/18 01/22/18 History hydralazine 50 mg PO QID 01/22/18 01/22/18 History hydrocodone-acetaminophen [Allen] 1 tab PO Q4-6H PRN 01/22/18 01/22/18 History nifedipine 90 mg PO DAILY 01/22/18 01/22/18 History pantoprazole [Protonix] 40 mg PO DAILY 01/22/18 01/22/18 History Physical Exam Vital signs: Vital Signs 04/17/18 09:00 04/17/18 09:30 04/17/18 10:00 Temperature Pulse Rate 69 67 71 Respiratory Rate 19 16 16 Blood Pressure 161/70 H 118/58 L 139/65 Pulse Oximetry 96 98 98 04/17/18 10:30 04/17/18 11:00 04/17/18 11:19 Temperature Pulse Rate 76 81 85 Respiratory Rate 16 16 16 Blood Pressure 138/66 122/64 Pulse Oximetry 99 99 04/17/18 11:30 04/17/18 12:00 04/17/18 12:30 Temperature Pulse Rate 87 90 90 Respiratory Rate 16 16 16 Blood Pressure 113/67 114/65 145/67 H Pulse Oximetry 98 98 96 04/17/18 13:00 04/17/18 13:30 04/17/18 13:56 Temperature Pulse Rate 88 90 Respiratory Rate 16 16 16 Blood Pressure 140/65 154/72 H Pulse Oximetry 92 L 93 L 94 L 04/17/18 14:00 04/17/18 14:30 04/17/18 15:00 Temperature Pulse Rate 89 95 H 100 H Respiratory Rate 16 11 L 16 Blood Pressure 139/69 168/79 H 188/84 H Pulse Oximetry 95 95 93 L 04/17/18 15:30 04/17/18 16:00 04/17/18 16:30 Temperature 99.5 F Pulse Rate 116 H 115 H 117 H Respiratory Rate 19 19 17 Blood Pressure 198/86 H 174/79 H 192/83 H Pulse Oximetry 93 L 90 L 95 04/17/18 17:00 04/17/18 17:42 04/17/18 17:50 Temperature Pulse Rate 107 H 101 H 100 H Respiratory Rate 15 20 16 Blood Pressure 136/72 141/71 H 128/66 Pulse Oximetry 96 95 95 04/17/18 18:00 04/17/18 18:04 04/17/18 18:16 Temperature Pulse Rate 100 H 98 H 97 H Respiratory Rate 19 22 20 Blood Pressure 156/74 H 168/75 H Pulse Oximetry 94 L 95 94 L 04/17/18 18:20 04/17/18 18:30 04/17/18 18:50 Temperature Pulse Rate 96 H 95 H 93 H Respiratory Rate 19 21 23 Blood Pressure 167/72 H 143/72 H 149/70 H Pulse Oximetry 95 94 L 94 L 04/17/18 19:00 04/17/18 19:10 04/17/18 19:20 Temperature Pulse Rate 93 H 93 H 88 Respiratory Rate 19 25 H 17 Blood Pressure 149/68 H 151/70 H 146/67 H Pulse Oximetry 92 L 90 L 95 04/17/18 19:30 04/17/18 19:40 04/17/18 19:53 Temperature Pulse Rate 88 90 87 Respiratory Rate 21 16 15 Blood Pressure 172/68 H 161/69 H 157/70 H Pulse Oximetry 95 94 L 95 04/17/18 19:57 04/17/18 20:00 04/17/18 20:40 Temperature 99.8 F H Pulse Rate 86 85 85 Respiratory Rate 18 16 18 Blood Pressure 147/67 H 140/80 Pulse Oximetry 94 L 95 04/17/18 21:00 04/17/18 21:28 04/17/18 21:30 Temperature Pulse Rate 82 84 82 Respiratory Rate 18 17 18 Blood Pressure 113/56 L 95/60 L Pulse Oximetry 95 92 L 92 L 04/17/18 22:00 04/17/18 22:06 04/17/18 22:31 Temperature Pulse Rate 80 80 Respiratory Rate 19 16 28 H Blood Pressure 97/55 L 148/53 H Pulse Oximetry 91 L 91 L 04/17/18 23:00 04/17/18 23:01 04/17/18 23:43 Temperature Pulse Rate 79 78 77 Respiratory Rate 21 18 21 Blood Pressure 100/43 L 106/48 L Pulse Oximetry 94 L 94 L 04/17/18 23:44 04/17/18 23:45 04/18/18 00:00 Temperature 99.6 F Pulse Rate 75 Respiratory Rate 16 Blood Pressure 103/58 L Pulse Oximetry 96 96 96 04/18/18 00:30 04/18/18 01:00 04/18/18 01:30 Temperature Pulse Rate 75 75 72 Respiratory Rate 15 19 21 Blood Pressure 110/44 L 101/55 L 110/55 L Pulse Oximetry 95 95 95 04/18/18 02:00 04/18/18 02:31 04/18/18 03:00 Temperature Pulse Rate 71 72 68 Respiratory Rate 18 17 18 Blood Pressure 113/57 L 115/54 L 112/49 L Pulse Oximetry 95 94 L 95 04/18/18 03:30 04/18/18 04:00 04/18/18 04:14 Temperature 98.9 F Pulse Rate 68 71 Respiratory Rate 23 22 16 Blood Pressure 106/57 L 109/78 Pulse Oximetry 93 L 96 04/18/18 04:22 04/18/18 04:27 04/18/18 08:01 Temperature Pulse Rate 71 78 Respiratory Rate 20 18 Blood Pressure Pulse Oximetry 96 96 Intake & Output 04/17/18 04/18/18 04/18/18 18:59 06:59 18:59 Intake Total 215 / 215 1225 / 1225 Output Total 325 / 325 0 / 0 Balance -110 / -110 1225 / 1225 Weight 65.8 kg Intake: IV 215 / 215 1225 / 1225 D5W/Normal Saline Inj 1,000 ML 1000 / 1000 @ 42 mls/hr IV.CONT .[id number] [facility] Rx#:[id number] Diprivan 1000 mg/100 ml Inj 1, 40 / 40 000 mg In 100 ml @ 5 MCG/KG/MIN 2.313 mls/hr IV.CONT TITRATE PRN Rx#:[id number] Cardizem Inj 125 MG In NS Inj 125 / 125 100 ML @ 2.5 MG/HR 2.5 mls/hr IV.CONT TITRATE PRN Rx#: [id number] Zosyn 2.25 GM Premix 50 ML @ 50 / 50 100 / 100 100 mls/hr IV.SIG Q6H [facility] Rx#: [id number] fentaNYL 10 mcg/mL Premix Drip 125 / 125 2,500 mcg In 250 ml @ 50 MCG/HR 5 mls/hr IV.SIG TITRATE PRN Rx #:[id number] Oral 0 / 0 Output: Urine 0 / 0 0 / 0 Stool 0 / 0 Urine/Stool Mix 0 / 0 Gastric Drainage 325 / 325 Oral Orogastric Tube 325 / 325 Other: # Bowel Movements 0 0 # Incontinent Bowel Movements 0 - Constitutional mild distress - Routine Neck Exam Absent: JVD - Routine Respiratory Exam Comments: Few scattered rhonchi. - Routine Cardiovascular Exam Present: RRR, S1, S2. Absent: murmur, gallop - Routine Abdominal Exam Present: soft, normoactive bowel sounds. Absent: tenderness, organomegaly - Routine Extremities Exam Absent: cyanosis, clubbing, edema - Urinary Catheter Management Indwelling Urethral Catheter Cath placed during this visit: yes, but has since been removed by the nurse Reason for continuing: Hourly intake/output Insertion date: 04/14/18 Insertion time: 10:35 Removal date: 04/14/18 Removal time: 17:30 Results 04/18/18 03:25 04/18/18 03:25 Cardiac Enzymes 04/16/18 04/17/18 04/18/18 Range/Units 13:48 04:00 03:25 AST 423 H 217 H (15-37) U/L CK-MB (CK-2) 10.6 H (0.5-3.6) ng/mL Troponin I 1.30 H* D (0.02-0.05) ng/mL CBC 04/17/18 04/18/18 Range/Units 04:00 03:25 WBC 10.6 8.8 (4.0-11.0) th/mm3 RBC 2.76 L 2.97 L (4.00-5.30) mil/mm3 Hgb 9.2 L 9.7 L (11.6-15.3) gm/dL Hct 27.1 L 29.3 L (35.0-46.0) % Plt Count 183 206 (150-450) th/mm3 Neut # (Auto) 8.0 H 6.7 (1.8-7.7) th/mm3 Lymph # (Auto) 1.5 0.9 L (1.0-4.8) th/mm3 [place] # (Auto) 0.9 1.2 H (0.0-0.9) th/mm3 Eos # (Auto) 0.2 0.0 (0.0-0.4) th/mm3 Baso # (Auto) 0.1 0.0 (0.0-0.2) th/mm3 Comprehensive Metabolic Panel 04/17/18 04/18/18 Range/Units 04:00 03:25 Sodium 143 141 (136-145) meq/L Potassium 5.0 4.9 (3.5-5.1) meq/L Chloride 104 100 (98-107) meq/L Carbon Dioxide 20.8 L 27.9 (21.0-32.0) meq/L BUN 95 H 56 H (7-18) mg/dL Creatinine 10.12 H* 6.44 H (0.50-1.00) mg/dL Calcium 7.7 L 8.6 D (8.5-10.1) mg/dL AST 423 H 217 H (15-37) U/L ALT 560 H 460 H (10-53) U/L Alkaline Phosphatase 74 95 (45-117) U/L Total Protein 7.2 D 7.8 D (6.4-8.2) g/dL Albumin 2.4 L D 2.6 L (3.4-5.0) g/dL Intake and Output 04/17/18 04/18/18 04/18/18 22:59 06:59 14:59 Intake Total 390 / 390 1050 / 1050 Output Total 0 / 0 Balance 390 / 390 1050 / 1050 Intake: IV 390 / 390 1050 / 1050 D5W/Normal Saline Inj 1,000 ML 1000 / 1000 @ 42 mls/hr IV.CONT .[id number] [facility] Rx#:[id number] Diprivan 1000 mg/100 ml Inj 1, 40 / 40 000 mg In 100 ml @ 5 MCG/KG/MIN 2.313 mls/hr IV.CONT TITRATE PRN Rx#:[id number] Cardizem Inj 125 MG In NS Inj 125 / 125 100 ML @ 2.5 MG/HR 2.5 mls/hr IV.CONT TITRATE PRN Rx#: [id number] Zosyn 2.25 GM Premix 50 ML @ 100 / 100 50 / 50 100 mls/hr IV.SIG Q6H [facility] Rx#: [id number] fentaNYL 10 mcg/mL Premix Drip 125 / 125 2,500 mcg In 250 ml @ 50 MCG/HR 5 mls/hr IV.SIG TITRATE PRN Rx #:[id number] Oral 0 / 0 Output: Urine 0 / 0 Other: # Bowel Movements 0 Weight 65.8 kg - Imaging and Cardiology Imaging: Impressions Extremity Arterial Study 04/15/18 00:00 CONCLUSION: 1. Significantly limited examination due to unobtainable pressures in the forearms bilaterally. 2. Unobtainable pressures and absence of waveforms in the left hand. Cannot exclude steal from patient's left upper extremity brachiobasilic fistula. Cholangiopancreatography MRI 04/16/18 07:10 CONCLUSION: 1. Cholelithiasis with multiple small gallstones layering dependently. There is no gallbladder wall thickening or inflammatory change. No gas is visualized on the MRI. 2. Common bile duct measuring up to 1 cm with no filling defects or mass. This could represent distal obstruction or prior passage of stones. 3. Multiple benign-appearing small cystic structures in the pancreas. 4. Bilateral simple renal cysts as well as a more complex right parapelvic cyst. Chest X-Ray 04/17/18 06:00 CONCLUSION: Minimal right lung base opacity. Chest X-Ray 04/18/18 06:00 CONCLUSION: 1. Endotracheal tube no longer seen. 2. Minimal right lung base opacity unchanged. Assessment and Plan - Assessment (1) Non-ST elevated myocardial infarction (non-STEMI) Code(s): I21.4 - Non-ST elevation (NSTEMI) myocardial infarction Status: Acute Plan: Possible NSTEMI, though likely type 2 [place]. Echo reviewed, shows excellent LV function without wall motion abnormalities. Recommend daily aspirin, add beta lenora. Will f/u as needed. (2) Paroxysmal atrial flutter Code(s): I48.92 - Unspecified atrial flutter Status: Acute Plan: Stable overnight. No further atrial flutter or fibrillation. REC change to oral Cardizem, add low dose beta lenora. - Plan Code Status: full Discussed Condition With: patient
[2018-04-18] MEDS ORDERED: dilTIAZem CD 180 MG Capsule PO SCH (09:00)
--- NOTE | 2018-04-18 09:46 | P.PNID ---
Subjective Remarks: ID Coverage is a 72 y/o WF with PMHx of CKD s/p attempt at PD catheter placement due to non compliance, also Left Brachiocephalic AV fistula on 2017 by . Patient was reportedly found with decreased level of consciousness. Room mates do not know much about her medical history and reportedly seen her normal the night prior. Per records EMS gave her Narcan and there was improvement noted. No family nos on chart and old records could not be assessed. Patients past medical records from prior visits could not be accessed by me but patient has CKD and prior Bradycardia on prior admit. Also patient has a history of stroke diabetes hypertension GERD. On admission she had leukocytosis of 12,000 with a left shift. Metabolic acidosis on ABG. Lactic acid 6.Troponins elevated. Cr at 9.6. Normal lipase, LFTs in thousands. CT with air concerning for emphysematous cholecystitis. At the time of my evaluation patient is in IMC, not on pressors, has received fluid bolus amount not documented per RN. She is currently intubated, not sedated, opens eyes, does not follow commands for me. No obvious focal deficit. ID consulted for evaluation and Mment of Severe Sepsis, possible acute cholecystitis. Notes reviewed D/W RN Patient has been extubated yesterday Constant moaning States she hurts all over On FM Temps ok BP ok WBC ok LUE bluish discoloration of fingers. Cool clammy fingers L hand. s/p MRCP Labs and C/S reviewed Antibiotics: zosyn IV Lines: Line sites ok Past Medical History: reviewed Allergies/Adverse Reactions: Allergies No Known Allergies Allergy (Verified 01/22/18 10:23) Objective Vital Signs 04/17/18 10:00 04/17/18 10:30 04/17/18 11:00 Temperature Pulse Rate 71 76 81 Respiratory Rate 16 16 16 Blood Pressure 139/65 138/66 122/64 Pulse Oximetry 98 99 99 04/17/18 11:19 04/17/18 11:30 04/17/18 12:00 Temperature Pulse Rate 85 87 90 Respiratory Rate 16 16 16 Blood Pressure 113/67 114/65 Pulse Oximetry 98 98 04/17/18 12:30 04/17/18 13:00 04/17/18 13:30 Temperature Pulse Rate 90 88 90 Respiratory Rate 16 16 16 Blood Pressure 145/67 H 140/65 154/72 H Pulse Oximetry 96 92 L 93 L 04/17/18 13:56 04/17/18 14:00 04/17/18 14:30 Temperature Pulse Rate 89 95 H Respiratory Rate 16 16 11 L Blood Pressure 139/69 168/79 H Pulse Oximetry 94 L 95 95 04/17/18 15:00 04/17/18 15:30 04/17/18 16:00 Temperature 99.5 F Pulse Rate 100 H 116 H 115 H Respiratory Rate 16 19 19 Blood Pressure 188/84 H 198/86 H 174/79 H Pulse Oximetry 93 L 93 L 90 L 04/17/18 16:30 04/17/18 17:00 04/17/18 17:42 Temperature Pulse Rate 117 H 107 H 101 H Respiratory Rate 17 15 20 Blood Pressure 192/83 H 136/72 141/71 H Pulse Oximetry 95 96 95 04/17/18 17:50 04/17/18 18:00 04/17/18 18:04 Temperature Pulse Rate 100 H 100 H 98 H Respiratory Rate 16 19 22 Blood Pressure 128/66 156/74 H Pulse Oximetry 95 94 L 95 04/17/18 18:16 04/17/18 18:20 04/17/18 18:30 Temperature Pulse Rate 97 H 96 H 95 H Respiratory Rate 20 19 21 Blood Pressure 168/75 H 167/72 H 143/72 H Pulse Oximetry 94 L 95 94 L 04/17/18 18:50 04/17/18 19:00 04/17/18 19:10 Temperature Pulse Rate 93 H 93 H 93 H Respiratory Rate 23 19 25 H Blood Pressure 149/70 H 149/68 H 151/70 H Pulse Oximetry 94 L 92 L 90 L 04/17/18 19:20 04/17/18 19:30 04/17/18 19:40 Temperature Pulse Rate 88 88 90 Respiratory Rate 17 21 16 Blood Pressure 146/67 H 172/68 H 161/69 H Pulse Oximetry 95 95 94 L 04/17/18 19:53 04/17/18 19:57 04/17/18 20:00 Temperature 99.8 F H Pulse Rate 87 86 85 Respiratory Rate 15 18 16 Blood Pressure 157/70 H 147/67 H Pulse Oximetry 95 94 L 04/17/18 20:40 04/17/18 21:00 04/17/18 21:28 Temperature Pulse Rate 85 82 84 Respiratory Rate 18 18 17 Blood Pressure 140/80 113/56 L Pulse Oximetry 95 95 92 L 04/17/18 21:30 04/17/18 22:00 04/17/18 22:06 Temperature Pulse Rate 82 80 Respiratory Rate 18 19 16 Blood Pressure 95/60 L 97/55 L Pulse Oximetry 92 L 91 L 04/17/18 22:31 04/17/18 23:00 04/17/18 23:01 Temperature Pulse Rate 80 79 78 Respiratory Rate 28 H 21 18 Blood Pressure 148/53 H 100/43 L 106/48 L Pulse Oximetry 91 L 94 L 94 L 04/17/18 23:43 04/17/18 23:44 04/17/18 23:45 Temperature Pulse Rate 77 Respiratory Rate 21 Blood Pressure Pulse Oximetry 96 96 04/18/18 00:00 04/18/18 00:30 04/18/18 01:00 Temperature 99.6 F Pulse Rate 75 75 75 Respiratory Rate 16 15 19 Blood Pressure 103/58 L 110/44 L 101/55 L Pulse Oximetry 96 95 95 04/18/18 01:30 04/18/18 02:00 04/18/18 02:31 Temperature Pulse Rate 72 71 72 Respiratory Rate 21 18 17 Blood Pressure 110/55 L 113/57 L 115/54 L Pulse Oximetry 95 95 94 L 04/18/18 03:00 04/18/18 03:30 04/18/18 04:00 Temperature 98.9 F Pulse Rate 68 68 71 Respiratory Rate 18 23 22 Blood Pressure 112/49 L 106/57 L 109/78 Pulse Oximetry 95 93 L 96 04/18/18 04:14 04/18/18 04:22 04/18/18 04:27 Temperature Pulse Rate 71 Respiratory Rate 16 20 Blood Pressure Pulse Oximetry 96 04/18/18 04:30 04/18/18 05:00 04/18/18 05:01 Temperature Pulse Rate 71 71 71 Respiratory Rate 21 14 10 L Blood Pressure 116/52 L 128/45 L Pulse Oximetry 96 96 96 04/18/18 05:31 04/18/18 06:00 04/18/18 06:31 Temperature Pulse Rate 74 72 72 Respiratory Rate 16 15 11 L Blood Pressure 119/46 L 129/87 111/52 L Pulse Oximetry 96 93 L 95 04/18/18 07:00 04/18/18 07:30 04/18/18 08:00 Temperature 98.1 F Pulse Rate 73 71 75 Respiratory Rate 21 24 24 Blood Pressure 117/56 L 113/47 L Pulse Oximetry 94 L 94 L 95 04/18/18 08:01 04/18/18 08:30 04/18/18 08:44 Temperature Pulse Rate 77 76 Respiratory Rate 29 H 22 Blood Pressure 116/51 L 87/56 L Pulse Oximetry 95 92 L 98 04/18/18 08:45 04/18/18 09:00 Temperature Pulse Rate 78 Respiratory Rate 22 Blood Pressure Pulse Oximetry 98 92 L Intake & Output 04/17/18 04/18/18 04/18/18 18:59 06:59 18:59 Intake Total 215 / 215 1225 / 1225 Output Total 325 / 325 0 / 0 Balance -110 / -110 1225 / 1225 Weight 65.8 kg Intake: IV 215 / 215 1225 / 1225 D5W/Normal Saline Inj 1,000 ML 1000 / 1000 @ 42 mls/hr IV.CONT .[id number] [facility] Rx#:[id number] Diprivan 1000 mg/100 ml Inj 1, 40 / 40 000 mg In 100 ml @ 5 MCG/KG/MIN 2.313 mls/hr IV.CONT TITRATE PRN Rx#:[id number] Cardizem Inj 125 MG In NS Inj 125 / 125 100 ML @ 2.5 MG/HR 2.5 mls/hr IV.CONT TITRATE PRN Rx#: [id number] Zosyn 2.25 GM Premix 50 ML @ 50 / 50 100 / 100 100 mls/hr IV.SIG Q6H [facility] Rx#: [id number] fentaNYL 10 mcg/mL Premix Drip 125 / 125 2,500 mcg In 250 ml @ 50 MCG/HR 5 mls/hr IV.SIG TITRATE PRN Rx #:[id number] Oral 0 / 0 Output: Urine 0 / 0 0 / 0 Stool 0 / 0 Urine/Stool Mix 0 / 0 Gastric Drainage 325 / 325 Oral Orogastric Tube 325 / 325 Other: # Bowel Movements 0 0 # Incontinent Bowel Movements 0 04/15/18 13:55 Blood - Peripheral Aerobic Blood Culture - Preliminary No growth in 2 days 04/15/18 13:55 Blood - Peripheral Anaerobic Blood Culture - Preliminary No growth in 2 days 04/15/18 11:30 Blood - Line Aerobic Blood Culture - Preliminary No growth in 2 days 04/15/18 11:30 Blood - Line Anaerobic Blood Culture - Preliminary No growth in 2 days 04/14/18 10:20 Blood - Peripheral Aerobic Blood Culture - Preliminary No growth in 3 days 04/14/18 10:20 Blood - Peripheral Anaerobic Blood Culture - Preliminary No growth in 3 days 04/14/18 10:25 Blood - Peripheral Aerobic Blood Culture - Preliminary No growth in 3 days 04/14/18 10:25 Blood - Peripheral Anaerobic Blood Culture - Preliminary No growth in 3 days 04/14/18 15:15 Sputum - Endotracheal Gram Stain - Final 04/14/18 15:15 Sputum - Endotracheal Sputum Culture - Final Heavy growth normal respiratory black 04/14/18 10:35 Clean Catch Urine Urine Culture - Final No growth in 48 hours Lab - Hematology Results 04/17/18 04/18/18 04:00 03:25 WBC 10.6 8.8 RBC 2.76 L 2.97 L Hgb 9.2 L 9.7 L Hct 27.1 L 29.3 L MCV 98.3 98.7 MCH 33.3 32.5 MCHC 33.9 33.0 RDW 19.2 H 18.6 H Plt Count 183 206 MPV 9.5 9.3 Prelim Diff (Auto) Slide review pending Slide review pending Neut % (Auto) 75.4 H 75.5 H Lymph % (Auto) 13.9 10.0 [place] % (Auto) 8.4 H 13.6 H Eos % (Auto) 1.6 0.4 Baso % (Auto) 0.7 0.5 Neut # (Auto) 8.0 H 6.7 Lymph # (Auto) 1.5 0.9 L [place] # (Auto) 0.9 1.2 H Eos # (Auto) 0.2 0.0 Baso # (Auto) 0.1 0.0 WBC Differential . Manual diff final Diff Scan Auto diff confirmed Seg Neuts % (Manual) 68 Lymphocytes % (Manual) 19 Monocytes % (Manual) 9 H Basophils % (Manual) 1 Metamyelocytes % (Man) 2 H Myelocytes % (Man) 1 H Abs Neuts (Manual) 6.2 Differential Comment . . Dohle Bodies Present H Present H Platelet Estimate Normal Normal Platelet Morphology Enlarged H Normal Basophilic Stippling Faint H Lab - Chemistry Results 04/16/18 04/16/18 04/16/18 12:10 13:48 13:48 Sodium Potassium Chloride Carbon Dioxide Anion Gap BUN Creatinine Estimated GFR POC Glucose 81 Random Glucose Lactic Acid 0.8 Calcium Phosphorus Magnesium Total Bilirubin AST ALT Alkaline Phosphatase Ammonia Total Creatine Kinase CK-MB (CK-2) CK-MB (CK-2) % Troponin I 1.30 H* D Total Protein Albumin Lipase TSH 1.290 04/16/18 04/16/18 04/16/18 16:12 20:40 23:55 Sodium Potassium Chloride Carbon Dioxide Anion Gap BUN Creatinine Estimated GFR POC Glucose 82 55 L Random Glucose Lactic Acid 0.7 Calcium Phosphorus Magnesium Total Bilirubin AST ALT Alkaline Phosphatase Ammonia Total Creatine Kinase CK-MB (CK-2) CK-MB (CK-2) % Troponin I Total Protein Albumin Lipase [facility] 04/16/18 04/17/18 04/17/18 23:57 00:57 01:50 Sodium Potassium Chloride Carbon Dioxide Anion Gap BUN Creatinine Estimated GFR POC Glucose 63 L 158 H Random Glucose Lactic Acid 1.1 Calcium Phosphorus Magnesium Total Bilirubin AST ALT Alkaline Phosphatase Ammonia Total Creatine Kinase CK-MB (CK-2) CK-MB (CK-2) % Troponin I Total Protein Albumin Lipase [facility] 04/17/18 04/17/18 04/17/18 04:00 04:00 05:57 Sodium 143 Potassium 5.0 Chloride 104 Carbon Dioxide 20.8 L Anion Gap 18 H BUN 95 H Creatinine 10.12 H* Estimated GFR 4 L POC Glucose 73 Random Glucose 72 L Lactic Acid 0.6 Calcium 7.7 L Phosphorus 7.8 H Magnesium 2.5 Total Bilirubin 1.0 AST 423 H ALT 560 H Alkaline Phosphatase 74 Ammonia Total Creatine Kinase CK-MB (CK-2) CK-MB (CK-2) % Troponin I Total Protein 7.2 D Albumin 2.4 L D Lipase [facility] 04/17/18 04/17/18 04/17/18 12:08 16:56 23:49 Sodium Potassium Chloride Carbon Dioxide Anion Gap BUN Creatinine Estimated GFR POC Glucose 86 137 H 172 H Random Glucose Lactic Acid Calcium Phosphorus Magnesium Total Bilirubin AST ALT Alkaline Phosphatase Ammonia Total Creatine Kinase CK-MB (CK-2) CK-MB (CK-2) % Troponin I Total Protein Albumin Lipase [facility] 04/18/18 04/18/18 04/18/18 03:25 03:25 03:25 Sodium 141 Potassium 4.9 Chloride 100 Carbon Dioxide 27.9 Anion Gap 13 BUN 56 H Creatinine 6.44 H Estimated GFR 6 L POC Glucose Random Glucose 134 H Lactic Acid 0.8 Calcium 8.6 D Phosphorus 9.2 H D Magnesium 2.4 Total Bilirubin 1.3 H AST 217 H ALT 460 H Alkaline Phosphatase 95 Ammonia 16 Total Creatine Kinase 566 H CK-MB (CK-2) 10.6 H CK-MB (CK-2) % 1.9 Troponin I Total Protein 7.8 D Albumin 2.6 L Lipase 217 TSH 04/18/18 05:37 Sodium Potassium Chloride Carbon Dioxide Anion Gap BUN Creatinine Estimated GFR POC Glucose 139 H Random Glucose Lactic Acid Calcium Phosphorus Magnesium Total Bilirubin AST ALT Alkaline Phosphatase Ammonia Total Creatine Kinase CK-MB (CK-2) CK-MB (CK-2) % Troponin I Total Protein Albumin Lipase TSH Imaging: ITS Impressions Head CT 04/14/18 09:44 CONCLUSION: 1. 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 2. No evidence of acute infarct, hemorrhage, mass or edema. 3. No significant change compared to 04/12/2017. . Abdomen/Pelvis CT 04/14/18 10:59 CONCLUSION: 1. Distended gallbladder with cholelithiasis and minimal gas in the fundus. There is no significant pericholecystic fluid or inflammation. 2. Simple left renal cyst. 3. Bibasilar airspace disease. Liver Ultrasound 04/14/18 12:44 CONCLUSION: 1. Gallbladder contains sludge and stones. However, no additional findings are present to definitively indicate acute cholecystitis. 2. Common bile duct is enlarged but contains no visible stone. Given the pain one could consider MRCP for further evaluation of the common duct stone as a cause for the duct dilatation in right upper quadrant pain. 3. Atrophic right kidney with changes suggesting chronic medical renal disease. There is a complex cystic lesion in the mid kidney and renal sinus measuring up to 3.5 cm. At some point ideally be further characterized with renal protocol MRI with and without intravenous contrast. This should be performed on an elective basis when condition permits. Extremity Arterial Study 04/15/18 00:00 CONCLUSION: 1. Significantly limited examination due to unobtainable pressures in the forearms bilaterally. 2. Unobtainable pressures and absence of waveforms in the left hand. Cannot exclude steal from patient's left upper extremity brachiobasilic fistula. Upper Extremity Ultrasound 04/15/18 00:00 CONCLUSION: Patent left AV fistula. Venous Doppler Study 04/15/18 00:00 CONCLUSION: No evidence of DVT. Cholangiopancreatography MRI 04/16/18 07:10 CONCLUSION: 1. Cholelithiasis with multiple small gallstones layering dependently. There is no gallbladder wall thickening or inflammatory change. No gas is visualized on the MRI. 2. Common bile duct measuring up to 1 cm with no filling defects or mass. This could represent distal obstruction or prior passage of stones. 3. Multiple benign-appearing small cystic structures in the pancreas. 4. Bilateral simple renal cysts as well as a more complex right parapelvic cyst. Chest X-Ray 04/18/18 06:00 CONCLUSION: 1. Endotracheal tube no longer seen. 2. Minimal right lung base opacity unchanged. Physical Exam: GENERAL: Awake, responding, on FM, looks frail, NAD SKIN: Cool and dry, no generalized rash HEAD: Atraumatic. Normocephalic. No temporal or scalp tenderness. EYES: Pupils equal round and reactive. Scleral icterus. No injection or drainage. No petechia ENT: Dry oral mucosa NECK: Trachea midline. Supple, nontender, no meningeal signs. CARDIOVASCULAR: HS audible. RESPIRATORY: Air entry equal bilaterally. Decreased BS at bases GASTROINTESTINAL: Abdomen soft, not distended, min tender. MUSCULOSKELETAL: Lower Extremities with no evidence of infection. Left AV fistula site ok. Left fingers bluish hue, cold clammy. NEUROLOGICAL: Awake, following commands Psych: cooperative IV line sites ok. HD cath and CL site ok. Assessment and Plan - Plan Severe Sepsis Probable acute emphysematous cholecystitis (CT findings and RUQ tenderness) CKD Attempted PD catheter placement in 01/2018. AV fistula LUE placed on 01/22/2018. Acute metabolic encephalopathy: sepsis, metabolic. Recs: Continue Zosyn IV Follow temps Monitor progress. D/W LEANA
[2018-04-18] MEDS: Mupirocin 2% Nasal Oint Topical Syringe EACH NARE SCH ×2 (10:30→20:05)
[2018-04-18] MEDS: Heparin - SQ 10,000 UNITS/ML Vial SQ SCH ×2 (10:31→20:06)
--- NOTE | 2018-04-18 11:33 | P.PNNP ---
Subjective Interval history: Patient was seen, continuous moaning, appears confused. Complaints of thirst. Patient extubated yesterday. Patient gets dialysis TTS. Patient dialyzed yesterday, 2.5L removed. <EricNehemiah - Last Filed: 04/18/18 11:34> Physical Exam Vital signs: Vital Signs 04/17/18 12:00 04/17/18 12:30 04/17/18 13:00 Temperature Pulse Rate 90 90 88 Respiratory Rate 16 16 16 Blood Pressure 114/65 145/67 H 140/65 Pulse Oximetry 98 96 92 L 04/17/18 13:30 04/17/18 13:56 04/17/18 14:00 Temperature Pulse Rate 90 89 Respiratory Rate 16 16 16 Blood Pressure 154/72 H 139/69 Pulse Oximetry 93 L 94 L 95 04/17/18 14:30 04/17/18 15:00 04/17/18 15:30 Temperature Pulse Rate 95 H 100 H 116 H Respiratory Rate 11 L 16 19 Blood Pressure 168/79 H 188/84 H 198/86 H Pulse Oximetry 95 93 L 93 L 04/17/18 16:00 04/17/18 16:30 04/17/18 17:00 Temperature 99.5 F Pulse Rate 115 H 117 H 107 H Respiratory Rate 19 17 15 Blood Pressure 174/79 H 192/83 H 136/72 Pulse Oximetry 90 L 95 96 04/17/18 17:42 04/17/18 17:50 04/17/18 18:00 Temperature Pulse Rate 101 H 100 H 100 H Respiratory Rate 20 16 19 Blood Pressure 141/71 H 128/66 Pulse Oximetry 95 95 94 L 04/17/18 18:04 04/17/18 18:16 04/17/18 18:20 Temperature Pulse Rate 98 H 97 H 96 H Respiratory Rate 22 20 19 Blood Pressure 156/74 H 168/75 H 167/72 H Pulse Oximetry 95 94 L 95 04/17/18 18:30 04/17/18 18:50 04/17/18 19:00 Temperature Pulse Rate 95 H 93 H 93 H Respiratory Rate 21 23 19 Blood Pressure 143/72 H 149/70 H 149/68 H Pulse Oximetry 94 L 94 L 92 L 04/17/18 19:10 04/17/18 19:20 04/17/18 19:30 Temperature Pulse Rate 93 H 88 88 Respiratory Rate 25 H 17 21 Blood Pressure 151/70 H 146/67 H 172/68 H Pulse Oximetry 90 L 95 95 04/17/18 19:40 04/17/18 19:53 04/17/18 19:57 Temperature Pulse Rate 90 87 86 Respiratory Rate 16 15 18 Blood Pressure 161/69 H 157/70 H Pulse Oximetry 94 L 95 04/17/18 20:00 04/17/18 20:40 04/17/18 21:00 Temperature 99.8 F H Pulse Rate 85 85 82 Respiratory Rate 16 18 18 Blood Pressure 147/67 H 140/80 Pulse Oximetry 94 L 95 95 04/17/18 21:28 04/17/18 21:30 04/17/18 22:00 Temperature Pulse Rate 84 82 80 Respiratory Rate 17 18 19 Blood Pressure 113/56 L 95/60 L 97/55 L Pulse Oximetry 92 L 92 L 91 L 04/17/18 22:06 04/17/18 22:31 04/17/18 23:00 Temperature Pulse Rate 80 79 Respiratory Rate 16 28 H 21 Blood Pressure 148/53 H 100/43 L Pulse Oximetry 91 L 94 L 04/17/18 23:01 04/17/18 23:43 04/17/18 23:44 Temperature Pulse Rate 78 77 Respiratory Rate 18 21 Blood Pressure 106/48 L Pulse Oximetry 94 L 96 04/17/18 23:45 04/18/18 00:00 04/18/18 00:30 Temperature 99.6 F Pulse Rate 75 75 Respiratory Rate 16 15 Blood Pressure 103/58 L 110/44 L Pulse Oximetry 96 96 95 04/18/18 01:00 04/18/18 01:30 04/18/18 02:00 Temperature Pulse Rate 75 72 71 Respiratory Rate 19 21 18 Blood Pressure 101/55 L 110/55 L 113/57 L Pulse Oximetry 95 95 95 04/18/18 02:31 04/18/18 03:00 04/18/18 03:30 Temperature Pulse Rate 72 68 68 Respiratory Rate 17 18 23 Blood Pressure 115/54 L 112/49 L 106/57 L Pulse Oximetry 94 L 95 93 L 04/18/18 04:00 04/18/18 04:14 04/18/18 04:22 Temperature 98.9 F Pulse Rate 71 71 Respiratory Rate 22 16 20 Blood Pressure 109/78 Pulse Oximetry 96 04/18/18 04:27 04/18/18 04:30 04/18/18 05:00 Temperature Pulse Rate 71 71 Respiratory Rate 21 14 Blood Pressure 116/52 L Pulse Oximetry 96 96 96 04/18/18 05:01 04/18/18 05:31 04/18/18 06:00 Temperature Pulse Rate 71 74 72 Respiratory Rate 10 L 16 15 Blood Pressure 128/45 L 119/46 L 129/87 Pulse Oximetry 96 96 93 L 04/18/18 06:31 04/18/18 07:00 04/18/18 07:30 Temperature Pulse Rate 72 73 71 Respiratory Rate 11 L 21 24 Blood Pressure 111/52 L 117/56 L 113/47 L Pulse Oximetry 95 94 L 94 L 04/18/18 08:00 04/18/18 08:01 04/18/18 08:30 Temperature 98.1 F Pulse Rate 75 77 76 Respiratory Rate 24 29 H 22 Blood Pressure 116/51 L 87/56 L Pulse Oximetry 95 95 92 L 04/18/18 08:44 04/18/18 08:45 04/18/18 09:00 Temperature Pulse Rate 78 Respiratory Rate 22 Blood Pressure Pulse Oximetry 98 98 92 L 04/18/18 11:15 Temperature Pulse Rate 84 Respiratory Rate 18 Blood Pressure Pulse Oximetry Intake & Output 04/17/18 04/18/18 04/18/18 18:59 06:59 18:59 Intake Total 215 / 215 1225 / 1225 175 / 175 Output Total 325 / 325 0 / 0 Balance -110 / -110 1225 / 1225 175 / 175 Weight 65.8 kg Intake: IV 215 / 215 1225 / 1225 175 / 175 D5W/Normal Saline Inj 1,000 ML 1000 / 1000 @ 42 mls/hr IV.CONT .[id number] [facility] Rx#:[id number] Diprivan 1000 mg/100 ml Inj 1, 40 / 40 000 mg In 100 ml @ 5 MCG/KG/MIN 2.313 mls/hr IV.CONT TITRATE PRN Rx#:[id number] Cardizem Inj 125 MG In NS Inj 125 / 125 125 / 125 100 ML @ 2.5 MG/HR 2.5 mls/hr IV.CONT TITRATE PRN Rx#: [id number] Zosyn 2.25 GM Premix 50 ML @ 50 / 50 100 / 100 50 / 50 100 mls/hr IV.SIG Q6H [facility] Rx#: [id number] fentaNYL 10 mcg/mL Premix Drip 125 / 125 2,500 mcg In 250 ml @ 50 MCG/HR 5 mls/hr IV.SIG TITRATE PRN Rx #:[id number] Oral 0 / 0 Output: Urine 0 / 0 0 / 0 Stool 0 / 0 Urine/Stool Mix 0 / 0 Gastric Drainage 325 / 325 Oral Orogastric Tube 325 / 325 Other: # Bowel Movements 0 0 # Incontinent Bowel Movements 0 - Constitutional moderate distress - Routine HEENT Exam Eye: Present: EOMI, PERRL ENT: Present: mucous membranes dry - Routine Neck Exam Present: trachea midline - Routine Respiratory Exam Absent: accessory muscle use, respiratory distress - Routine Cardiovascular Exam Present: RRR - Routine Abdominal Exam Present: soft, normoactive bowel sounds - Routine Extremities Exam Present: AV fistula. Absent: edema Comments: Left AVF - Routine Neurological Exam Absent: oriented X3 - Urinary Catheter Management Indwelling Urethral Catheter Cath placed during this visit: yes, but has since been removed by the nurse Reason for continuing: Hourly intake/output Insertion date: 04/14/18 Insertion time: 10:35 Removal date: 04/14/18 Removal time: 17:30 <Nehemiah Reyes - Last Filed: 04/18/18 11:34> Vital signs: Vital Signs 04/17/18 18:50 04/17/18 19:00 04/17/18 19:10 Temperature Pulse Rate 93 H 93 H 93 H Respiratory Rate 23 19 25 H Blood Pressure 149/70 H 149/68 H 151/70 H Pulse Oximetry 94 L 92 L 90 L 04/17/18 19:20 04/17/18 19:30 04/17/18 19:40 Temperature Pulse Rate 88 88 90 Respiratory Rate 17 21 16 Blood Pressure 146/67 H 172/68 H 161/69 H Pulse Oximetry 95 95 94 L 04/17/18 19:53 04/17/18 19:57 04/17/18 20:00 Temperature 99.8 F H Pulse Rate 87 86 85 Respiratory Rate 15 18 16 Blood Pressure 157/70 H 147/67 H Pulse Oximetry 95 94 L 04/17/18 20:40 04/17/18 21:00 04/17/18 21:28 Temperature Pulse Rate 85 82 84 Respiratory Rate 18 18 17 Blood Pressure 140/80 113/56 L Pulse Oximetry 95 95 92 L 04/17/18 21:30 04/17/18 22:00 04/17/18 22:06 Temperature Pulse Rate 82 80 Respiratory Rate 18 19 16 Blood Pressure 95/60 L 97/55 L Pulse Oximetry 92 L 91 L 04/17/18 22:31 04/17/18 23:00 04/17/18 23:01 Temperature Pulse Rate 80 79 78 Respiratory Rate 28 H 21 18 Blood Pressure 148/53 H 100/43 L 106/48 L Pulse Oximetry 91 L 94 L 94 L 04/17/18 23:43 04/17/18 23:44 04/17/18 23:45 Temperature Pulse Rate 77 Respiratory Rate 21 Blood Pressure Pulse Oximetry 96 96 04/18/18 00:00 04/18/18 00:30 04/18/18 01:00 Temperature 99.6 F Pulse Rate 75 75 75 Respiratory Rate 16 15 19 Blood Pressure 103/58 L 110/44 L 101/55 L Pulse Oximetry 96 95 95 04/18/18 01:30 04/18/18 02:00 04/18/18 02:31 Temperature Pulse Rate 72 71 72 Respiratory Rate 21 18 17 Blood Pressure 110/55 L 113/57 L 115/54 L Pulse Oximetry 95 95 94 L 04/18/18 03:00 04/18/18 03:30 04/18/18 04:00 Temperature 98.9 F Pulse Rate 68 68 71 Respiratory Rate 18 23 22 Blood Pressure 112/49 L 106/57 L 109/78 Pulse Oximetry 95 93 L 96 04/18/18 04:14 04/18/18 04:22 04/18/18 04:27 Temperature Pulse Rate 71 Respiratory Rate 16 20 Blood Pressure Pulse Oximetry 96 04/18/18 04:30 04/18/18 05:00 04/18/18 05:01 Temperature Pulse Rate 71 71 71 Respiratory Rate 21 14 10 L Blood Pressure 116/52 L 128/45 L Pulse Oximetry 96 96 96 04/18/18 05:31 04/18/18 06:00 04/18/18 06:31 Temperature Pulse Rate 74 72 72 Respiratory Rate 16 15 11 L Blood Pressure 119/46 L 129/87 111/52 L Pulse Oximetry 96 93 L 95 04/18/18 07:00 04/18/18 07:30 04/18/18 08:00 Temperature 98.1 F Pulse Rate 73 71 75 Respiratory Rate 21 24 24 Blood Pressure 117/56 L 113/47 L Pulse Oximetry 94 L 94 L 95 04/18/18 08:01 04/18/18 08:30 04/18/18 08:44 Temperature Pulse Rate 77 76 Respiratory Rate 29 H 22 Blood Pressure 116/51 L 87/56 L Pulse Oximetry 95 92 L 98 04/18/18 08:45 04/18/18 09:00 04/18/18 10:00 Temperature Pulse Rate 78 81 Respiratory Rate 22 28 H Blood Pressure 113/49 L Pulse Oximetry 98 92 L 93 L 04/18/18 10:31 04/18/18 11:00 04/18/18 11:15 Temperature Pulse Rate 82 84 84 Respiratory Rate 25 H 22 18 Blood Pressure 154/65 H 121/55 L Pulse Oximetry 90 L 96 04/18/18 11:30 04/18/18 12:00 04/18/18 12:30 Temperature 98.5 F Pulse Rate 85 85 84 Respiratory Rate 28 H 23 26 H Blood Pressure 110/56 L 111/76 108/54 L Pulse Oximetry 95 95 95 04/18/18 13:00 04/18/18 13:01 04/18/18 14:00 Temperature Pulse Rate 84 85 85 Respiratory Rate 29 H 33 H 27 H Blood Pressure 148/103 H 123/58 L Pulse Oximetry 95 94 L 94 L 04/18/18 14:31 04/18/18 15:00 04/18/18 15:31 Temperature Pulse Rate 82 79 79 Respiratory Rate 20 29 H 21 Blood Pressure 158/58 H 134/83 127/58 L Pulse Oximetry 95 96 94 L 04/18/18 16:00 04/18/18 18:27 Temperature 98.7 F Pulse Rate 80 Respiratory Rate 16 Blood Pressure 121/55 L Pulse Oximetry 96 93 L Intake & Output 04/17/18 04/18/18 04/18/18 18:59 06:59 18:59 Intake Total 215 / 215 1225 / 1225 225 / 225 Output Total 325 / 325 0 / 0 Balance -110 / -110 1225 / 1225 225 / 225 Weight 65.8 kg Intake: IV 215 / 215 1225 / 1225 225 / 225 D5W/Normal Saline Inj 1,000 ML 1000 / 1000 @ 42 mls/hr IV.CONT .[id number] [facility] Rx#:[id number] Diprivan 1000 mg/100 ml Inj 1, 40 / 40 000 mg In 100 ml @ 5 MCG/KG/MIN 2.313 mls/hr IV.CONT TITRATE PRN Rx#:[id number] Cardizem Inj 125 MG In NS Inj 125 / 125 125 / 125 100 ML @ 2.5 MG/HR 2.5 mls/hr IV.CONT TITRATE PRN Rx#: [id number] Zosyn 2.25 GM Premix 50 ML @ 50 / 50 100 / 100 100 / 100 100 mls/hr IV.SIG Q6H [facility] Rx#: [id number] fentaNYL 10 mcg/mL Premix Drip 125 / 125 2,500 mcg In 250 ml @ 50 MCG/HR 5 mls/hr IV.SIG TITRATE PRN Rx #:[id number] Oral 0 / 0 Output: Urine 0 / 0 0 / 0 Stool 0 / 0 Urine/Stool Mix 0 / 0 Gastric Drainage 325 / 325 Oral Orogastric Tube 325 / 325 Other: # Bowel Movements 0 0 # Incontinent Bowel Movements 0 - Urinary Catheter Management Indwelling Urethral Catheter Cath placed during this visit: no <Blake Michel - Last Filed: 04/18/18 18:39> Assessment and Plan - Assessment (1) ESRD (end stage renal disease) Code(s): N18.6 - End stage renal disease Status: Chronic Plan: Patient gets dialysis TTS. Patient dialyzed yesterday, 2.5L removed. Monitor progress. L arm AVF, Doppler ultrasound on left arm was unremarkable. (2) Hyperkalemia Code(s): E87.5 - Hyperkalemia Status: Acute Plan: Resolved after dialysis. (3) Acute metabolic encephalopathy Code(s): G93.41 - Metabolic encephalopathy Status: Acute (4) Acute hypoxemic respiratory failure Code(s): J96.01 - Acute respiratory failure with hypoxia Status: Acute Plan: Extubated yesterday. (5) Septic shock Code(s): A41.9 - Sepsis, unspecified organism; R65.21 - Severe sepsis with septic shock Status: Resolved Plan: On broad-spectrum antibiotic. ID on the case. (6) Emphysematous cholecystitis Code(s): K81.0 - Acute cholecystitis Status: Acute Plan: General surgery following <Nehemiah Reyes - Last Filed: 04/18/18 11:34> - Assessment (1) ESRD (end stage renal disease) Code(s): N18.6 - End stage renal disease Status: Chronic (2) Hyperkalemia Code(s): E87.5 - Hyperkalemia Status: Acute (3) Acute metabolic encephalopathy Code(s): G93.41 - Metabolic encephalopathy Status: Acute (4) Acute hypoxemic respiratory failure Code(s): J96.01 - Acute respiratory failure with hypoxia Status: Acute (5) Septic shock Code(s): A41.9 - Sepsis, unspecified organism; R65.21 - Severe sepsis with septic shock Status: Resolved (6) Emphysematous cholecystitis Code(s): K81.0 - Acute cholecystitis Status: Acute - Attending Attestation patient was seen and examined. I agree with above assessment and plan. <Blake Michel - Last Filed: 04/18/18 18:39>
--- NOTE | 2018-04-18 13:00 | P.PNVS ---
Subjective Subjective/Hospital Course: Pt w/ L UE access several months ago. Adm with sepsis, just extubated LEFT arm still cool. Her mental status is such that it is tough to get a full exam. She seems to have diminished motor function of LEFT hand relative to the RIGHT but I am not sure it isn't volitional Objective Vital Signs / I&O: Vital Signs 04/17/18 13:00 04/17/18 13:30 04/17/18 13:56 Temperature Pulse Rate 88 90 Respiratory Rate 16 16 16 Blood Pressure 140/65 154/72 H Pulse Oximetry 92 L 93 L 94 L 04/17/18 14:00 04/17/18 14:30 04/17/18 15:00 Temperature Pulse Rate 89 95 H 100 H Respiratory Rate 16 11 L 16 Blood Pressure 139/69 168/79 H 188/84 H Pulse Oximetry 95 95 93 L 04/17/18 15:30 04/17/18 16:00 04/17/18 16:30 Temperature 99.5 F Pulse Rate 116 H 115 H 117 H Respiratory Rate 19 19 17 Blood Pressure 198/86 H 174/79 H 192/83 H Pulse Oximetry 93 L 90 L 95 04/17/18 17:00 04/17/18 17:42 04/17/18 17:50 Temperature Pulse Rate 107 H 101 H 100 H Respiratory Rate 15 20 16 Blood Pressure 136/72 141/71 H 128/66 Pulse Oximetry 96 95 95 04/17/18 18:00 04/17/18 18:04 04/17/18 18:16 Temperature Pulse Rate 100 H 98 H 97 H Respiratory Rate 19 22 20 Blood Pressure 156/74 H 168/75 H Pulse Oximetry 94 L 95 94 L 04/17/18 18:20 04/17/18 18:30 04/17/18 18:50 Temperature Pulse Rate 96 H 95 H 93 H Respiratory Rate 19 21 23 Blood Pressure 167/72 H 143/72 H 149/70 H Pulse Oximetry 95 94 L 94 L 04/17/18 19:00 04/17/18 19:10 04/17/18 19:20 Temperature Pulse Rate 93 H 93 H 88 Respiratory Rate 19 25 H 17 Blood Pressure 149/68 H 151/70 H 146/67 H Pulse Oximetry 92 L 90 L 95 04/17/18 19:30 04/17/18 19:40 04/17/18 19:53 Temperature Pulse Rate 88 90 87 Respiratory Rate 21 16 15 Blood Pressure 172/68 H 161/69 H 157/70 H Pulse Oximetry 95 94 L 95 04/17/18 19:57 04/17/18 20:00 04/17/18 20:40 Temperature 99.8 F H Pulse Rate 86 85 85 Respiratory Rate 18 16 18 Blood Pressure 147/67 H 140/80 Pulse Oximetry 94 L 95 04/17/18 21:00 04/17/18 21:28 04/17/18 21:30 Temperature Pulse Rate 82 84 82 Respiratory Rate 18 17 18 Blood Pressure 113/56 L 95/60 L Pulse Oximetry 95 92 L 92 L 04/17/18 22:00 04/17/18 22:06 04/17/18 22:31 Temperature Pulse Rate 80 80 Respiratory Rate 19 16 28 H Blood Pressure 97/55 L 148/53 H Pulse Oximetry 91 L 91 L 04/17/18 23:00 04/17/18 23:01 04/17/18 23:43 Temperature Pulse Rate 79 78 77 Respiratory Rate 21 18 21 Blood Pressure 100/43 L 106/48 L Pulse Oximetry 94 L 94 L 04/17/18 23:44 04/17/18 23:45 04/18/18 00:00 Temperature 99.6 F Pulse Rate 75 Respiratory Rate 16 Blood Pressure 103/58 L Pulse Oximetry 96 96 96 04/18/18 00:30 04/18/18 01:00 04/18/18 01:30 Temperature Pulse Rate 75 75 72 Respiratory Rate 15 19 21 Blood Pressure 110/44 L 101/55 L 110/55 L Pulse Oximetry 95 95 95 04/18/18 02:00 04/18/18 02:31 04/18/18 03:00 Temperature Pulse Rate 71 72 68 Respiratory Rate 18 17 18 Blood Pressure 113/57 L 115/54 L 112/49 L Pulse Oximetry 95 94 L 95 04/18/18 03:30 04/18/18 04:00 04/18/18 04:14 Temperature 98.9 F Pulse Rate 68 71 Respiratory Rate 23 22 16 Blood Pressure 106/57 L 109/78 Pulse Oximetry 93 L 96 04/18/18 04:22 04/18/18 04:27 04/18/18 04:30 Temperature Pulse Rate 71 71 Respiratory Rate 20 21 Blood Pressure 116/52 L Pulse Oximetry 96 96 12/12/18 05:00 04/18/18 05:01 04/18/18 05:31 Temperature Pulse Rate 71 71 74 Respiratory Rate 14 10 L 16 Blood Pressure 128/45 L 119/46 L Pulse Oximetry 96 96 96 04/18/18 06:00 04/18/18 06:31 04/18/18 07:00 Temperature Pulse Rate 72 72 73 Respiratory Rate 15 11 L 21 Blood Pressure 129/87 111/52 L 117/56 L Pulse Oximetry 93 L 95 94 L 04/18/18 07:30 04/18/18 08:00 04/18/18 08:01 Temperature 98.1 F Pulse Rate 71 75 77 Respiratory Rate 24 24 29 H Blood Pressure 113/47 L 116/51 L Pulse Oximetry 94 L 95 95 04/18/18 08:30 04/18/18 08:44 04/18/18 08:45 Temperature Pulse Rate 76 Respiratory Rate 22 Blood Pressure 87/56 L Pulse Oximetry 92 L 98 98 04/18/18 09:00 04/18/18 10:00 04/18/18 10:31 Temperature Pulse Rate 78 81 82 Respiratory Rate 22 28 H 25 H Blood Pressure 113/49 L 154/65 H Pulse Oximetry 92 L 93 L 90 L 04/18/18 11:00 04/18/18 11:15 04/18/18 11:30 Temperature Pulse Rate 84 84 85 Respiratory Rate 22 18 28 H Blood Pressure 121/55 L 110/56 L Pulse Oximetry 96 95 04/18/18 12:00 04/18/18 12:30 Temperature 98.5 F Pulse Rate 85 84 Respiratory Rate 23 26 H Blood Pressure 111/76 108/54 L Pulse Oximetry 95 95 Intake & Output 04/17/18 04/18/18 04/18/18 18:59 06:59 18:59 Intake Total 215 / 215 1225 / 1225 175 / 175 Output Total 325 / 325 0 / 0 Balance -110 / -110 1225 / 1225 175 / 175 Weight 65.8 kg Intake: IV 215 / 215 1225 / 1225 175 / 175 D5W/Normal Saline Inj 1,000 ML 1000 / 1000 @ 42 mls/hr IV.CONT .[id number] [facility] Rx#:[id number] Diprivan 1000 mg/100 ml Inj 1, 40 / 40 000 mg In 100 ml @ 5 MCG/KG/MIN 2.313 mls/hr IV.CONT TITRATE PRN Rx#:[id number] Cardizem Inj 125 MG In NS Inj 125 / 125 125 / 125 100 ML @ 2.5 MG/HR 2.5 mls/hr IV.CONT TITRATE PRN Rx#: [id number] Zosyn 2.25 GM Premix 50 ML @ 50 / 50 100 / 100 50 / 50 100 mls/hr IV.SIG Q6H [facility] Rx#: [id number] fentaNYL 10 mcg/mL Premix Drip 125 / 125 2,500 mcg In 250 ml @ 50 MCG/HR 5 mls/hr IV.SIG TITRATE PRN Rx #:[id number] Oral 0 / 0 Output: Urine 0 / 0 0 / 0 Stool 0 / 0 Urine/Stool Mix 0 / 0 Gastric Drainage 325 / 325 Oral Orogastric Tube 325 / 325 Other: # Bowel Movements 0 0 # Incontinent Bowel Movements 0 Physical Exam: + LEFT arm thrill hand cool Laboratory Results - last 24 hr 04/17/18 04/17/18 04/18/18 16:56 23:49 03:25 WBC 8.8 RBC 2.97 L Hgb 9.7 L Hct 29.3 L MCV 98.7 MCH 32.5 MCHC 33.0 RDW 18.6 H Plt Count 206 MPV 9.3 Prelim Diff (Auto) Slide review pending Neut % (Auto) 75.5 H Lymph % (Auto) 10.0 [place] % (Auto) 13.6 H Eos % (Auto) 0.4 Baso % (Auto) 0.5 Neut # (Auto) 6.7 Lymph # (Auto) 0.9 L [place] # (Auto) 1.2 H Eos # (Auto) 0.0 Baso # (Auto) 0.0 WBC Differential Manual diff final Seg Neuts % (Manual) 68 Lymphocytes % (Manual) 19 Monocytes % (Manual) 9 H Basophils % (Manual) 1 Metamyelocytes % (Man) 2 H Myelocytes % (Man) 1 H Abs Neuts (Manual) 6.2 Differential Comment . Dohle Bodies Present H Platelet Estimate Normal Platelet Morphology Normal Basophilic Stippling Faint H Sodium Potassium Chloride Carbon Dioxide Anion Gap BUN Creatinine Estimated GFR POC Glucose 137 H 172 H Random Glucose Lactic Acid Calcium Phosphorus Magnesium Total Bilirubin AST ALT Alkaline Phosphatase Ammonia Total Creatine Kinase CK-MB (CK-2) CK-MB (CK-2) % Total Protein Albumin Lipase 04/18/18 04/18/18 04/18/18 03:25 03:25 03:25 WBC RBC Hgb Hct MCV MCH MCHC RDW Plt Count MPV Prelim Diff (Auto) Neut % (Auto) Lymph % (Auto) [place] % (Auto) Eos % (Auto) Baso % (Auto) Neut # (Auto) Lymph # (Auto) [place] # (Auto) Eos # (Auto) Baso # (Auto) WBC Differential Seg Neuts % (Manual) Lymphocytes % (Manual) Monocytes % (Manual) Basophils % (Manual) Metamyelocytes % (Man) Myelocytes % (Man) Abs Neuts (Manual) Differential Comment Dohle Bodies Platelet Estimate Platelet Morphology Basophilic Stippling Sodium 141 Potassium 4.9 Chloride 100 Carbon Dioxide 27.9 Anion Gap 13 BUN 56 H Creatinine 6.44 H Estimated GFR 6 L POC Glucose Random Glucose 134 H Lactic Acid 0.8 Calcium 8.6 D Phosphorus 9.2 H D Magnesium 2.4 Total Bilirubin 1.3 H AST 217 H ALT 460 H Alkaline Phosphatase 95 Ammonia 16 Total Creatine Kinase 566 H CK-MB (CK-2) 10.6 H CK-MB (CK-2) % 1.9 Total Protein 7.8 D Albumin 2.6 L Lipase 217 04/18/18 04/18/18 05:37 11:19 WBC RBC Hgb Hct MCV MCH MCHC RDW Plt Count MPV Prelim Diff (Auto) Neut % (Auto) Lymph % (Auto) [place] % (Auto) Eos % (Auto) Baso % (Auto) Neut # (Auto) Lymph # (Auto) [place] # (Auto) Eos # (Auto) Baso # (Auto) WBC Differential Seg Neuts % (Manual) Lymphocytes % (Manual) Monocytes % (Manual) Basophils % (Manual) Metamyelocytes % (Man) Myelocytes % (Man) Abs Neuts (Manual) Differential Comment Dohle Bodies Platelet Estimate Platelet Morphology Basophilic Stippling Sodium Potassium Chloride Carbon Dioxide Anion Gap BUN Creatinine Estimated GFR POC Glucose 139 H 151 H Random Glucose Lactic Acid Calcium Phosphorus Magnesium Total Bilirubin AST ALT Alkaline Phosphatase Ammonia Total Creatine Kinase CK-MB (CK-2) CK-MB (CK-2) % Total Protein Albumin Lipase Microbiology 04/15/18 13:55 Aerobic Blood Culture - Preliminary Blood - Peripheral No growth in 3 days Anaerobic Blood Culture - Preliminary No growth in 3 days 04/15/18 11:30 Aerobic Blood Culture - Preliminary Blood - Line No growth in 3 days Anaerobic Blood Culture - Preliminary No growth in 3 days 04/14/18 10:20 Aerobic Blood Culture - Preliminary Blood - Peripheral No growth in 4 days Anaerobic Blood Culture - Preliminary No growth in 4 days 04/14/18 10:25 Aerobic Blood Culture - Preliminary Blood - Peripheral No growth in 4 days Anaerobic Blood Culture - Preliminary No growth in 4 days Impressions Extremity Arterial Study 04/15/18 00:00 CONCLUSION: 1. Significantly limited examination due to unobtainable pressures in the forearms bilaterally. 2. Unobtainable pressures and absence of waveforms in the left hand. Cannot exclude steal from patient's left upper extremity brachiobasilic fistula. Chest X-Ray 04/17/18 06:00 CONCLUSION: Minimal right lung base opacity. Chest X-Ray 04/18/18 06:00 CONCLUSION: 1. Endotracheal tube no longer seen. 2. Minimal right lung base opacity unchanged. Assessment and Plan - Assessment (1) Chronic kidney disease Code(s): N18.9 - Chronic kidney disease, unspecified Status: Acute - Plan LEFT hand with expected diminished perfusion compared to RIGHT (patent AVF) and I am concerned about clinical access-related hand ischemia. Unfortunately she is recovering from what seems to be sepsis. Needs BP augmentation and if hand no better, will take to OR for access ligation. despite great access, not a candidate for DRIL or similar access salvage procedure due to acute medical comorbidities. Will discuss with family. Wili Wu MD FACS [facility] [phone]
--- NOTE | 2018-04-18 14:48 | P.PNCC ---
Subjective Subjective Remarks/Hospital Course: Patient is a 72-year-old female with past medical history significant for previous strokes, TIA, end-stage renal disease on hemodialysis (Monday, Monday schedule), Left AV fistula on 01/2018, type 2 diabetes, and hypertension. EMS was called as her roommate found her unresponsive last seen normal yesterday night. IV 0.4 mg of Narcan was given without any response. Patient was intubated in the emergency department for airway protection, for a GCS 8. Lab work showed leukocytosis of 12,500 with a left shift of 90% neutrophilia, 29% bands. Lactic acid came back at 6. CMP showed potassium of 6.0 bicarb of 16.7, anion gap of 24, liver enzymes were markedly elevated AST 1992 ALT 758, CPK 475, troponin 5.21. EKG did not show any evidence of acute ST elevation. ABG shows pH of 7.19 PCO2 of 48 PaO2 of [address] abdomen pelvis showed distended gallbladder with cholelithiasis, also small amount of air in the fundus of the gallbladder. Critical care medicine was consulted for admission. I evaluated the patient in the emergency department. She is acutely ill critical appearing. Intermittently hypotensive. Dr. Vargas has placed a left subclavian central line. I will start Levophed if needed. Patient received Zosyn and Flagyl in the ED. I will place patient on vancomycin and Zosyn renally dosed. Pierre cultures have been sent. With the CT finding I contacted Dr. Cortes who requested stat ultrasound of the right upper quadrant. Also ID was consulted and I discussed with Dr. Montaño. Patient has healed scars probably few week old laparoscopic abdominal surgery, it is unclear what kind of surgery she had. Dr. Fermin consulted for an STEMI. Nephrology Dr. Gillette consulted for emergent hemodialysis 04/15 -T-max 101. Remains on broad-spectrum antibiotics. Noted cool left fingers not cyanotic but will check fistula Doppler and arterial Dopplers and venous Doppler left upper extremity. Central line placed left subclavian noted. 04/16: T-max 100.5. MRCP pending. Right upper lower extremity and left lower extremity remains warm. Cool left upper extremity. Has seen Dr. Wu for her left AV fistula in the past. Positive dopplerable/patent left AV fistula noted by Doppler 04/15. Downward trending liver function test. 04/17: Afebrile. Patient received 2 doses of digoxin due to A. fib with RVR. Currently normal sinus rhythm. Hypoglycemic overnight requiring D5 normal saline currently at 42 cc an hour. Off all vasopressors. Remains in normal sinus rhythm. Cardiology recommended IV diltiazem for paroxysmal atrial fibrillation. Will order. MRCP result results noted. Subjective 04/18: Afebrile. Patient extubated yesterday without complication. Currently resting on simple mask playing of pain but unknown source. Noted vascular surgery's note. Objective Vital Signs / I&O: Vital Signs 04/17/18 15:00 04/17/18 15:30 04/17/18 16:00 Temperature 99.5 F Pulse Rate 100 H 116 H 115 H Respiratory Rate 16 19 19 Blood Pressure 188/84 H 198/86 H 174/79 H Pulse Oximetry 93 L 93 L 90 L 04/17/18 16:30 04/17/18 17:00 04/17/18 17:42 Temperature Pulse Rate 117 H 107 H 101 H Respiratory Rate 17 15 20 Blood Pressure 192/83 H 136/72 141/71 H Pulse Oximetry 95 96 95 04/17/18 17:50 04/17/18 18:00 04/17/18 18:04 Temperature Pulse Rate 100 H 100 H 98 H Respiratory Rate 16 19 22 Blood Pressure 128/66 156/74 H Pulse Oximetry 95 94 L 95 04/17/18 18:16 04/17/18 18:20 04/17/18 18:30 Temperature Pulse Rate 97 H 96 H 95 H Respiratory Rate 20 19 21 Blood Pressure 168/75 H 167/72 H 143/72 H Pulse Oximetry 94 L 95 94 L 04/17/18 18:50 04/17/18 19:00 04/17/18 19:10 Temperature Pulse Rate 93 H 93 H 93 H Respiratory Rate 23 19 25 H Blood Pressure 149/70 H 149/68 H 151/70 H Pulse Oximetry 94 L 92 L 90 L 04/17/18 19:20 04/17/18 19:30 04/17/18 19:40 Temperature Pulse Rate 88 88 90 Respiratory Rate 17 21 16 Blood Pressure 146/67 H 172/68 H 161/69 H Pulse Oximetry 95 95 94 L 04/17/18 19:53 04/17/18 19:57 04/17/18 20:00 Temperature 99.8 F H Pulse Rate 87 86 85 Respiratory Rate 15 18 16 Blood Pressure 157/70 H 147/67 H Pulse Oximetry 95 94 L 04/17/18 20:40 04/17/18 21:00 04/17/18 21:28 Temperature Pulse Rate 85 82 84 Respiratory Rate 18 18 17 Blood Pressure 140/80 113/56 L Pulse Oximetry 95 95 92 L 04/17/18 21:30 04/17/18 22:00 04/17/18 22:06 Temperature Pulse Rate 82 80 Respiratory Rate 18 19 16 Blood Pressure 95/60 L 97/55 L Pulse Oximetry 92 L 91 L 04/17/18 22:31 04/17/18 23:00 04/17/18 23:01 Temperature Pulse Rate 80 79 78 Respiratory Rate 28 H 21 18 Blood Pressure 148/53 H 100/43 L 106/48 L Pulse Oximetry 91 L 94 L 94 L 04/17/18 23:43 04/17/18 23:44 04/17/18 23:45 Temperature Pulse Rate 77 Respiratory Rate 21 Blood Pressure Pulse Oximetry 96 96 04/18/18 00:00 04/18/18 00:30 04/18/18 01:00 Temperature 99.6 F Pulse Rate 75 75 75 Respiratory Rate 16 15 19 Blood Pressure 103/58 L 110/44 L 101/55 L Pulse Oximetry 96 95 95 04/18/18 01:30 04/18/18 02:00 04/18/18 02:31 Temperature Pulse Rate 72 71 72 Respiratory Rate 21 18 17 Blood Pressure 110/55 L 113/57 L 115/54 L Pulse Oximetry 95 95 94 L 04/18/18 03:00 04/18/18 03:30 04/18/18 04:00 Temperature 98.9 F Pulse Rate 68 68 71 Respiratory Rate 18 23 22 Blood Pressure 112/49 L 106/57 L 109/78 Pulse Oximetry 95 93 L 96 04/18/18 04:14 04/18/18 04:22 04/18/18 04:27 Temperature Pulse Rate 71 Respiratory Rate 16 20 Blood Pressure Pulse Oximetry 96 04/18/18 04:30 04/18/18 05:00 04/18/18 05:01 Temperature Pulse Rate 71 71 71 Respiratory Rate 21 14 10 L Blood Pressure 116/52 L 128/45 L Pulse Oximetry 96 96 96 04/18/18 05:31 04/18/18 06:00 04/18/18 06:31 Temperature Pulse Rate 74 72 72 Respiratory Rate 16 15 11 L Blood Pressure 119/46 L 129/87 111/52 L Pulse Oximetry 96 93 L 95 04/18/18 07:00 04/18/18 07:30 04/18/18 08:00 Temperature 98.1 F Pulse Rate 73 71 75 Respiratory Rate 21 24 24 Blood Pressure 117/56 L 113/47 L Pulse Oximetry 94 L 94 L 95 04/18/18 08:01 04/18/18 08:30 04/18/18 08:44 Temperature Pulse Rate 77 76 Respiratory Rate 29 H 22 Blood Pressure 116/51 L 87/56 L Pulse Oximetry 95 92 L 98 04/18/18 08:45 04/18/18 09:00 04/18/18 10:00 Temperature Pulse Rate 78 81 Respiratory Rate 22 28 H Blood Pressure 113/49 L Pulse Oximetry 98 92 L 93 L 04/18/18 10:31 04/18/18 11:00 04/18/18 11:15 Temperature Pulse Rate 82 84 84 Respiratory Rate 25 H 22 18 Blood Pressure 154/65 H 121/55 L Pulse Oximetry 90 L 96 04/18/18 11:30 04/18/18 12:00 04/18/18 12:30 Temperature 98.5 F Pulse Rate 85 85 84 Respiratory Rate 28 H 23 26 H Blood Pressure 110/56 L 111/76 108/54 L Pulse Oximetry 95 95 95 Intake & Output 04/17/18 04/18/18 04/18/18 18:59 06:59 18:59 Intake Total 215 / 215 1225 / 1225 225 / 225 Output Total 325 / 325 0 / 0 Balance -110 / -110 1225 / 1225 225 / 225 Weight 65.8 kg Intake: IV 215 / 215 1225 / 1225 225 / 225 D5W/Normal Saline Inj 1,000 ML 1000 / 1000 @ 42 mls/hr IV.CONT .[id number] [facility] Rx#:[id number] Diprivan 1000 mg/100 ml Inj 1, 40 / 40 000 mg In 100 ml @ 5 MCG/KG/MIN 2.313 mls/hr IV.CONT TITRATE PRN Rx#:[id number] Cardizem Inj 125 MG In NS Inj 125 / 125 125 / 125 100 ML @ 2.5 MG/HR 2.5 mls/hr IV.CONT TITRATE PRN Rx#: [id number] Zosyn 2.25 GM Premix 50 ML @ 50 / 50 100 / 100 100 / 100 100 mls/hr IV.SIG Q6H [facility] Rx#: [id number] fentaNYL 10 mcg/mL Premix Drip 125 / 125 2,500 mcg In 250 ml @ 50 MCG/HR 5 mls/hr IV.SIG TITRATE PRN Rx #:[id number] Oral 0 / 0 Output: Urine 0 / 0 0 / 0 Stool 0 / 0 Urine/Stool Mix 0 / 0 Gastric Drainage 325 / 325 Oral Orogastric Tube 325 / 325 Other: # Bowel Movements 0 0 # Incontinent Bowel Movements 0 Result Diagrams: 04/18/18 03:25 04/18/18 03:25 Other Results: Microbiology 04/15/18 13:55 Blood - Peripheral Aerobic Blood Culture - Preliminary No growth in 3 days 04/15/18 13:55 Blood - Peripheral Anaerobic Blood Culture - Preliminary No growth in 3 days 04/15/18 11:30 Blood - Line Aerobic Blood Culture - Preliminary No growth in 3 days 04/15/18 11:30 Blood - Line Anaerobic Blood Culture - Preliminary No growth in 3 days 04/14/18 10:20 Blood - Peripheral Aerobic Blood Culture - Preliminary No growth in 4 days 04/14/18 10:20 Blood - Peripheral Anaerobic Blood Culture - Preliminary No growth in 4 days 04/14/18 10:25 Blood - Peripheral Aerobic Blood Culture - Preliminary No growth in 4 days 04/14/18 10:25 Blood - Peripheral Anaerobic Blood Culture - Preliminary No growth in 4 days 04/14/18 15:15 Sputum - Endotracheal Gram Stain - Final 04/14/18 15:15 Sputum - Endotracheal Sputum Culture - Final Heavy growth normal respiratory black 04/14/18 10:35 Clean Catch Urine Urine Culture - Final No growth in 48 hours Imaging: Chest X-Ray 04/14/18 09:44 CONCLUSION: Satisfactory position of supporting devices Interval placement of bilateral central venous catheters without evidence of pneumothorax. Cardiomegaly with out evidence of acute airspace disease or significant pulmonary edema. Head CT 04/14/18 09:44 CONCLUSION: 1. 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 2. No evidence of acute infarct, hemorrhage, mass or edema. 3. No significant change compared to 04/12/2017. . Abdomen/Pelvis CT 04/14/18 10:59 CONCLUSION: 1. Distended gallbladder with cholelithiasis and minimal gas in the fundus. There is no significant pericholecystic fluid or inflammation. 2. Simple left renal cyst. 3. Bibasilar airspace disease. Liver Ultrasound 04/14/18 12:44 CONCLUSION: 1. Gallbladder contains sludge and stones. However, no additional findings are present to definitively indicate acute cholecystitis. 2. Common bile duct is enlarged but contains no visible stone. Given the pain one could consider MRCP for further evaluation of the common duct stone as a cause for the duct dilatation in right upper quadrant pain. 3. Atrophic right kidney with changes suggesting chronic medical renal disease. There is a complex cystic lesion in the mid kidney and renal sinus measuring up to 3.5 cm. At some point ideally be further characterized with renal protocol MRI with and without intravenous contrast. This should be performed on an elective basis when condition permits. Extremity Arterial Study 04/15/18 00:00 CONCLUSION: 1. Significantly limited examination due to unobtainable pressures in the forearms bilaterally. 2. Unobtainable pressures and absence of waveforms in the left hand. Cannot exclude steal from patient's left upper extremity brachiobasilic fistula. Upper Extremity Ultrasound 04/15/18 00:00 CONCLUSION: Patent left AV fistula. Venous Doppler Study 04/15/18 00:00 CONCLUSION: No evidence of DVT. Chest X-Ray 04/16/18 06:00 CONCLUSION: No significant interval change. No acute cardiopulmonary disease identified. Cholangiopancreatography MRI 04/16/18 07:10 CONCLUSION: 1. Cholelithiasis with multiple small gallstones layering dependently. There is no gallbladder wall thickening or inflammatory change. No gas is visualized on the MRI. 2. Common bile duct measuring up to 1 cm with no filling defects or mass. This could represent distal obstruction or prior passage of stones. 3. Multiple benign-appearing small cystic structures in the pancreas. 4. Bilateral simple renal cysts as well as a more complex right parapelvic cyst. Chest X-Ray 04/17/18 06:00 CONCLUSION: Minimal right lung base opacity. Chest X-Ray 04/18/18 06:00 CONCLUSION: 1. Endotracheal tube no longer seen. 2. Minimal right lung base opacity unchanged. Objective Remarks: GENERAL: 72-year-old female currently on simple mask appears in some mild distress SKIN: Warm and dry with the exception of cool peripheral fingers left upper extremity dopplerable pulses HEAD: Atraumatic. Normocephalic. EYES: Pupils equal and round about 2 mm bilaterally and reactive. No scleral icterus. No injection or drainage. ENT: No nasal bleeding or discharge. Mucous membranes pink and moist. NECK: Trachea midline. No JVD. CARDIOVASCULAR: Regular rate and rhythm. S1, S2. No S4. Murmur RESPIRATORY: Few fine crackles appreciated bilaterally anteriorly posteriorly. No wheezing GASTROINTESTINAL: Abdomen soft, slight right upper quadrant-tender, nondistended. Hepatic and splenic margins not palpable. Hypoactive bowel sounds appreciated. MUSCULOSKELETAL: Extremities without clubbing, cyanosis, or edema. Left AV fistula positive thrill. Patient has a tunneled right IJ Hemovac catheter in the subclavian left triple-lumen catheter in place along with the left femoral arterial line NEUROLOGICAL: Currently arousable and follows commands. Weak left upper extremity to the right. Moaning. Assessment and Plan - Problem List (1) Acute metabolic encephalopathy Code(s): G93.41 - Metabolic encephalopathy Status: Acute (2) Acute hypoxemic respiratory failure Code(s): J96.01 - Acute respiratory failure with hypoxia Status: Acute (3) Septic shock Code(s): A41.9 - Sepsis, unspecified organism; R65.21 - Severe sepsis with septic shock Status: Resolved (4) Lactic acidosis Code(s): E87.2 - Acidosis Status: Acute (5) Non-ST elevated myocardial infarction (non-STEMI) Code(s): I21.4 - Non-ST elevation (NSTEMI) myocardial infarction Status: Acute (6) UTI (urinary tract infection) Code(s): N39.0 - Urinary tract infection, site not specified Status: Acute (7) Liver enzyme elevation Code(s): R74.8 - Abnormal levels of other serum enzymes Status: Acute (8) Emphysematous cholecystitis Code(s): K81.0 - Acute cholecystitis Status: Acute (9) Hyperkalemia Code(s): E87.5 - Hyperkalemia Status: Acute (10) ESRD (end stage renal disease) Code(s): N18.6 - End stage renal disease Status: Chronic (11) HTN (hypertension) Code(s): I10 - Essential (primary) hypertension Status: Chronic (12) Diabetes Code(s): E11.9 - Type 2 diabetes mellitus without complications Status: Chronic (13) GERD (gastroesophageal reflux disease) Code(s): K21.9 - Gastro-esophageal reflux disease without esophagitis Status: Chronic (14) Stroke Code(s): I63.9 - Cerebral infarction, unspecified Status: Chronic (15) TIA (transient ischemic attack) Code(s): G45.9 - Transient cerebral ischemic attack, unspecified Status: Chronic - Assessment and Plan Plan: NEURO/PSYCH: Acute metabolic encephalopathy Old small bilateral cerebellar infarcts. -Encephalopathy seems to be metabolic secondary to severe sepsis -Daily sedation vacation once clinically stable -CT of the head shows old bilateral cerebellar strokes, and nothing acute. RESP: Acute hypoxemic respiratory failure -Intubated in the emergency department for lack of airway protection and hypoxia -Extubated 04/17 -Simple mask maintain saturations greater than equal to 90%. Wean as tolerated -albuterol/ipratropium aerosols every 4 hours with albuterol aerosols every 2 hours as needed -Head of bed at 30 degrees -SBT when appropriate CV: NSTEMI likely type II Paroxysmal atrial fibrillation with 2 1 AV conduction Hypotension Lactic acidosis History of hypertension -Normal saline IV fluids 500 ml bolus, 2d echo, cardiology consult, serial troponin -Start aspirin 81 mg daily, hold off beta-lenora secondary to hypotension -Cardiology Dr. Fermin consulted NSTEMI most likely type II from sepsis -Avoid IV heparin due to markedly elevated liver enzymes, possible need of surgical intervention -Hold all home antihypertensives (hold nifedipine, clonidine, hydralazine and Lasix) -Cardiology recommended diltiazem drip. Currently on diltiazem 30 mg 4 times daily -2d echocardiogram revealed normal left ventricular size. EF 65-70%. Left lipomatous atrial septum,. Trace MR/TR GI: Markedly elevated liver enzymes Probable emphysematous cholecystitis History of GERD -N.p.o Per GI., IV pantoprazole -CT abdomen pelvis shows small amount of air in the fundus of the gallbladder, this is concerning for emphysematous cholecystitis given clinical picture -Stat consult to general surgery and discussed with Dr. Cortes. Recommended conservative therapy at the present time. -Dr. Sebastian/general surgery and gastroenterology following MRCP -04/16 - cholelithiasis with multiple small gallstones layering dependently. There is no gallbladder wall thickening or inflammatory change. No gas is visualized on the MRI. Common bile duct measuring up to 1 cm with no filling defects or mass. This could represent distal obstruction or prior passage of stones. Multiple benign-appearing small cystic structures in the pancreas. Bilateral simple renal cysts as well as a more complex right parapelvic cyst. -Possible ERCP. LFTs very slowly trending downward Renal/: End-stage renal disease -Monitor renal function closely. -Dr. Gillette consulted for emergent hemodialysis on 04/14. Per his schedule -Monitor urine output accurate I's and O's ID: Septic shock Probable emphysematous cholecystitis Possible UTI -Antibiotics with piperacillin/tazobactam. Discontinued vancomycin 04/16 -Infectious disease and general surgery consulted -Follow-up blood urine and sputum cultures no growth to date HEME: Normocytic anemia -Monitor CBC, coags -No indication for transfusion of blood products at this time ENDO/FEN: Hyperphosphatemia Type 2 diabetes -Sliding scale insulin -Currently D5 normal saline at 42 cc hours with hypoglycemic episode PROPH: -Bilateral lower extremity SCDs. Heparin sq/IV pantoprazole LINES: -Utilize peripheral IVs, left subclavian central line day #5 with left femoral arterial line day #3 both discontinued 04/18 Level 3 follow-up Code Status: Full code (6) UTI (urinary tract infection) Qualifiers: Urinary tract infection type: site unspecified Hematuria presence: without hematuria Qualified Code(s): N39.0 - Urinary tract infection, site not specified (11) HTN (hypertension) Qualifiers: Hypertension type: unspecified Qualified Code(s): I10 - Essential (primary) hypertension (12) Diabetes Qualifiers: Diabetes mellitus type: other specified (including YOVANI) Diabetes mellitus music arranger insulin use: unspecified music arranger insulin use status Diabetes mellitus complication status: with unspecified complications Qualified Code(s) : E13.8 - Other specified diabetes mellitus with unspecified complications (13) GERD (gastroesophageal reflux disease) Qualifiers: Esophagitis presence: esophagitis presence not specified Qualified Code(s): K21.9 - Gastro-esophageal reflux disease without esophagitis (14) Stroke Qualifiers: CVA mechanism: unspecified Qualified Code(s): I63.9 - Cerebral infarction, unspecified
[2018-04-18] MEDS: dilTIAZem 30 MG Tablet PO SCH ×2 (17:21→20:05)
--- NOTE | 2018-04-18 19:13 | P.PNGI ---
Subjective Interval history: Patient awake extubated on high flow oxygen Denies abdominal pain Physical Exam Vital signs: Vital Signs 04/17/18 19:10 04/17/18 19:20 04/17/18 19:30 Temperature Pulse Rate 93 H 88 88 Respiratory Rate 25 H 17 21 Blood Pressure 151/70 H 146/67 H 172/68 H Pulse Oximetry 90 L 95 95 04/17/18 19:40 04/17/18 19:53 04/17/18 19:57 Temperature Pulse Rate 90 87 86 Respiratory Rate 16 15 18 Blood Pressure 161/69 H 157/70 H Pulse Oximetry 94 L 95 04/17/18 20:00 04/17/18 20:40 04/17/18 21:00 Temperature 99.8 F H Pulse Rate 85 85 82 Respiratory Rate 16 18 18 Blood Pressure 147/67 H 140/80 Pulse Oximetry 94 L 95 95 04/17/18 21:28 04/17/18 21:30 04/17/18 22:00 Temperature Pulse Rate 84 82 80 Respiratory Rate 17 18 19 Blood Pressure 113/56 L 95/60 L 97/55 L Pulse Oximetry 92 L 92 L 91 L 04/17/18 22:06 04/17/18 22:31 04/17/18 23:00 Temperature Pulse Rate 80 79 Respiratory Rate 16 28 H 21 Blood Pressure 148/53 H 100/43 L Pulse Oximetry 91 L 94 L 04/17/18 23:01 04/17/18 23:43 04/17/18 23:44 Temperature Pulse Rate 78 77 Respiratory Rate 18 21 Blood Pressure 106/48 L Pulse Oximetry 94 L 96 04/17/18 23:45 04/18/18 00:00 04/18/18 00:30 Temperature 99.6 F Pulse Rate 75 75 Respiratory Rate 16 15 Blood Pressure 103/58 L 110/44 L Pulse Oximetry 96 96 95 04/18/18 01:00 04/18/18 01:30 04/18/18 02:00 Temperature Pulse Rate 75 72 71 Respiratory Rate 19 21 18 Blood Pressure 101/55 L 110/55 L 113/57 L Pulse Oximetry 95 95 95 04/18/18 02:31 04/18/18 03:00 04/18/18 03:30 Temperature Pulse Rate 72 68 68 Respiratory Rate 17 18 23 Blood Pressure 115/54 L 112/49 L 106/57 L Pulse Oximetry 94 L 95 93 L 04/18/18 04:00 04/18/18 04:14 04/18/18 04:22 Temperature 98.9 F Pulse Rate 71 71 Respiratory Rate 22 16 20 Blood Pressure 109/78 Pulse Oximetry 96 04/18/18 04:27 04/18/18 04:30 04/18/18 05:00 Temperature Pulse Rate 71 71 Respiratory Rate 21 14 Blood Pressure 116/52 L Pulse Oximetry 96 96 96 04/18/18 05:01 04/18/18 05:31 04/18/18 06:00 Temperature Pulse Rate 71 74 72 Respiratory Rate 10 L 16 15 Blood Pressure 128/45 L 119/46 L 129/87 Pulse Oximetry 96 96 93 L 04/18/18 06:31 04/18/18 07:00 04/18/18 07:30 Temperature Pulse Rate 72 73 71 Respiratory Rate 11 L 21 24 Blood Pressure 111/52 L 117/56 L 113/47 L Pulse Oximetry 95 94 L 94 L 04/18/18 08:00 04/18/18 08:01 04/18/18 08:30 Temperature 98.1 F Pulse Rate 75 77 76 Respiratory Rate 24 29 H 22 Blood Pressure 116/51 L 87/56 L Pulse Oximetry 95 95 92 L 04/18/18 08:44 04/18/18 08:45 04/18/18 09:00 Temperature Pulse Rate 78 Respiratory Rate 22 Blood Pressure Pulse Oximetry 98 98 92 L 04/18/18 10:00 04/18/18 10:31 04/18/18 11:00 Temperature Pulse Rate 81 82 84 Respiratory Rate 28 H 25 H 22 Blood Pressure 113/49 L 154/65 H 121/55 L Pulse Oximetry 93 L 90 L 96 04/18/18 11:15 04/18/18 11:30 04/18/18 12:00 Temperature 98.5 F Pulse Rate 84 85 85 Respiratory Rate 18 28 H 23 Blood Pressure 110/56 L 111/76 Pulse Oximetry 95 95 04/18/18 12:30 04/18/18 13:00 04/18/18 13:01 Temperature Pulse Rate 84 84 85 Respiratory Rate 26 H 29 H 33 H Blood Pressure 108/54 L 148/103 H Pulse Oximetry 95 95 94 L 04/18/18 14:00 04/18/18 14:31 04/18/18 15:00 Temperature Pulse Rate 85 82 79 Respiratory Rate 27 H 20 29 H Blood Pressure 123/58 L 158/58 H 134/83 Pulse Oximetry 94 L 95 96 04/18/18 15:31 04/18/18 16:00 04/18/18 18:27 Temperature 98.7 F Pulse Rate 79 80 Respiratory Rate 21 16 Blood Pressure 127/58 L 121/55 L Pulse Oximetry 94 L 96 93 L Intake & Output 04/18/18 04/18/18 04/19/18 06:59 18:59 06:59 Intake Total 1225 / 1225 225 / 225 Output Total 0 / 0 0 / 0 Balance 1225 / 1225 225 / 225 Weight 65.8 kg Intake: IV 1225 / 1225 225 / 225 D5W/Normal Saline Inj 1,000 ML 1000 / 1000 @ 42 mls/hr IV.CONT .[id number] [facility] Rx#:[id number] Cardizem Inj 125 MG In NS Inj 125 / 125 125 / 125 100 ML @ 2.5 MG/HR 2.5 mls/hr IV.CONT TITRATE PRN Rx#: [id number] Zosyn 2.25 GM Premix 50 ML @ 100 / 100 100 / 100 100 mls/hr IV.SIG Q6H [facility] Rx#: [id number] Oral 0 / 0 0 / 0 Output: Urine 0 / 0 0 / 0 Stool 0 / 0 Other: # Bowel Movements 0 - Constitutional chronically ill appearing - Routine HEENT Exam Head: Present: normocephalic - Routine Respiratory Exam Present: decreased breath sounds, CTA bilaterally - Routine Cardiovascular Exam Present: RRR - Routine Abdominal Exam Present: soft, normoactive bowel sounds, organomegaly. Absent: tenderness, distended - Routine Skin Exam Present: dry, warm - Routine Neurological Exam Present: alert, altered mental status Moaning - Urinary Catheter Management Indwelling Urethral Catheter Cath placed during this visit: yes, but has since been removed by the nurse Reason for continuing: Hourly intake/output Insertion date: 04/14/18 Insertion time: 10:35 Removal date: 04/14/18 Removal time: 17:30 Results - Labs CBC & Chem 7: 04/18/18 03:25 04/18/18 03:25 Laboratory Results - last 24 hr 04/17/18 04/18/18 04/18/18 23:49 03:25 03:25 WBC 8.8 RBC 2.97 L Hgb 9.7 L Hct 29.3 L MCV 98.7 MCH 32.5 MCHC 33.0 RDW 18.6 H Plt Count 206 MPV 9.3 Prelim Diff (Auto) Slide review pending Neut % (Auto) 75.5 H Lymph % (Auto) 10.0 Stone % (Auto) 13.6 H Eos % (Auto) 0.4 Baso % (Auto) 0.5 Neut # (Auto) 6.7 Lymph # (Auto) 0.9 L Stone # (Auto) 1.2 H Eos # (Auto) 0.0 Baso # (Auto) 0.0 WBC Differential Manual diff final Seg Neuts % (Manual) 68 Lymphocytes % (Manual) 19 Monocytes % (Manual) 9 H Basophils % (Manual) 1 Metamyelocytes % (Man) 2 H Myelocytes % (Man) 1 H Abs Neuts (Manual) 6.2 Differential Comment . Dohle Bodies Present H Platelet Estimate Normal Platelet Morphology Normal Basophilic Stippling Faint H Sodium 141 Potassium 4.9 Chloride 100 Carbon Dioxide 27.9 Anion Gap 13 BUN 56 H Creatinine 6.44 H Estimated GFR 6 L POC Glucose 172 H Random Glucose 134 H Lactic Acid Calcium 8.6 D Phosphorus 9.2 H D Magnesium 2.4 Total Bilirubin 1.3 H AST 217 H ALT 460 H Alkaline Phosphatase 95 Ammonia Total Creatine Kinase 566 H CK-MB (CK-2) 10.6 H CK-MB (CK-2) % 1.9 Total Protein 7.8 D Albumin 2.6 L Lipase 217 04/18/18 04/18/18 04/18/18 03:25 03:25 05:37 WBC RBC Hgb Hct MCV MCH MCHC RDW Plt Count MPV Prelim Diff (Auto) Neut % (Auto) Lymph % (Auto) Stone % (Auto) Eos % (Auto) Baso % (Auto) Neut # (Auto) Lymph # (Auto) Stone # (Auto) Eos # (Auto) Baso # (Auto) WBC Differential Seg Neuts % (Manual) Lymphocytes % (Manual) Monocytes % (Manual) Basophils % (Manual) Metamyelocytes % (Man) Myelocytes % (Man) Abs Neuts (Manual) Differential Comment Dohle Bodies Platelet Estimate Platelet Morphology Basophilic Stippling Sodium Potassium Chloride Carbon Dioxide Anion Gap BUN Creatinine Estimated GFR POC Glucose 139 H Random Glucose Lactic Acid 0.8 Calcium Phosphorus Magnesium Total Bilirubin AST ALT Alkaline Phosphatase Ammonia 16 Total Creatine Kinase CK-MB (CK-2) CK-MB (CK-2) % Total Protein Albumin Lipase 04/18/18 04/18/18 11:19 17:19 WBC RBC Hgb Hct MCV MCH MCHC RDW Plt Count MPV Prelim Diff (Auto) Neut % (Auto) Lymph % (Auto) Stone % (Auto) Eos % (Auto) Baso % (Auto) Neut # (Auto) Lymph # (Auto) Stone # (Auto) Eos # (Auto) Baso # (Auto) WBC Differential Seg Neuts % (Manual) Lymphocytes % (Manual) Monocytes % (Manual) Basophils % (Manual) Metamyelocytes % (Man) Myelocytes % (Man) Abs Neuts (Manual) Differential Comment Dohle Bodies Platelet Estimate Platelet Morphology Basophilic Stippling Sodium Potassium Chloride Carbon Dioxide Anion Gap BUN Creatinine Estimated GFR POC Glucose 151 H 144 H Random Glucose Lactic Acid Calcium Phosphorus Magnesium Total Bilirubin AST ALT Alkaline Phosphatase Ammonia Total Creatine Kinase CK-MB (CK-2) CK-MB (CK-2) % Total Protein Albumin Lipase Microbiology 04/15/18 13:55 Blood - Peripheral Aerobic Blood Culture - Preliminary No growth in 3 days 04/15/18 13:55 Blood - Peripheral Anaerobic Blood Culture - Preliminary No growth in 3 days 04/15/18 11:30 Blood - Line Aerobic Blood Culture - Preliminary No growth in 3 days 04/15/18 11:30 Blood - Line Anaerobic Blood Culture - Preliminary No growth in 3 days 04/14/18 10:20 Blood - Peripheral Aerobic Blood Culture - Preliminary No growth in 4 days 04/14/18 10:20 Blood - Peripheral Anaerobic Blood Culture - Preliminary No growth in 4 days 04/14/18 10:25 Blood - Peripheral Aerobic Blood Culture - Preliminary No growth in 4 days 04/14/18 10:25 Blood - Peripheral Anaerobic Blood Culture - Preliminary No growth in 4 days - Imaging Impressions Chest X-Ray 04/18/18 06:00 CONCLUSION: 1. Endotracheal tube no longer seen. 2. Minimal right lung base opacity unchanged. Assessment and Plan - Plan This is a 72-year-old female who entered the hospital on 04/14/2018 after being found unresponsive per her roommate. According to the record and staff patient was intubated in the emergency room setting and received multiple lab work and aggressive therapy there was a CAT scan that showed distended gallbladder with cholelithiasis and liver ultrasound that showed positive cholelithiasis and gallbladder sludge and a small amount of air in the fundus of the gallbladder. Lab work was reviewed which showed initial hemoglobin 12.6 now decreased to 10.6 , initial WBC count 12.5 now normalized to 8.4, PT/INR 1.3, lipase 47, bilirubin 0.7, AST 1050, ALT 8:06 AM positive troponin IV 0.35. Gastroenterology was consulted to assist in her plan of care but it is noted after examination of the patient and per the record patient is acutely critically ill in the intensive care setting. There is currently no family present but according to staff patient has a daughter and a son. Transaminitis, these elevated liver enzymes could be related to shock liver since patient was found unresponsive. She will need continuing monitoring of these labs for any acute changes Anemia current hemoglobin 10.6 which is a mild decrease from admission. Patient has NG tube which shows dark bilious fluid return but also some possible coffee-ground debris noted initially in the NG tube. We will need to rule out any GI bleeding Ultrasound of the liver did show positive gallstones and sludge and recommendation was for MRCP but this will need to be done when patient is stable. MRCP has been ordered but probably on hold for this p.m. History of end-stage renal disease on hemodialysis Monday and Monday schedule. Patient has had cultures done for possible sepsis Left upper extremity is cool to the touch right upper extremity is warm, both lower extremities are cool. Possible non-STEMI cardiology involved Possible gallbladder disease rule out Ultrasound gallbladder contains sludge and stones. However, no additional findings are present to definitively indicate acute cholecystitis. Common bile duct is enlarged but contains no visible stone. Given the pain one could consider MRCP for further evaluation of the common duct stone as a cause for the duct dilatation in right upper quadrant pain. Atrophic right kidney with changes suggesting chronic medical renal disease. There is a complex cystic lesion in the mid kidney and renal sinus measuring up to 3.5 cm. At some point ideally be further characterized with renal protocol MRI with and without intravenous contrast. This should be performed on an elective basis when condition permits. 04/16/2018 -Patient intubated and mechanically ventilated. Plan for MRCP today. Orogastric tube to low intermittent suction 100 mL's of dark green bilious fluid noted. No obvious bleeding noted. -Transaminitis-likely due to shock liver as patient was found unresponsive, will continue to monitor LFTs -WBC 12.4 hemoglobin 10.3 hematocrit 31.6 INR 1.3 total bilirubin 0.9 AST 475 ALT 632 alk phos 58 ammonia less than 10 -04/16/2018 MRCP revealed the following findings: 1. Cholelithiasis with multiple small gallstones layering dependently. There is no gallbladder wall thickening or inflammatory change. No gas is visualized on the MRI. 2. Common bile duct measuring up to 1 cm with no filling defects or mass. This could represent distal obstruction or prior passage of stones. 3. Multiple benign-appearing small cystic structures in the pancreas. 4. Bilateral simple renal cysts as well as a more complex right parapelvic cyst. 04/17/2018 Intubated and mechanically ventilated. Orogastric tube to low intermittent wall suction, minimal scant drainage dark green bilious fluid. No obvious bleeding noted. Transaminitis--trending down, total bilirubin 1.0 AST 423 ALT 560 alk phos 74 WBC 10.6 hemoglobin 9.2 hematocrit 27.1 Decrease probability of choledocholithiasis, likely shock liver in view of liver panel Continue present conservative treatment 04/18/2018 Extubated on oxygen simple mask. No bleeding noted WBC 8.8 hemoglobin 9.7 hematocrit 29.3 platelet count 206 Total bilirubin 1.3 AST 217 alk phos 95 ALT 460 ammonia 16 lipase 217 Plan -Monitor for bleeding -Monitor labs, hemoglobin and hematocrit -Continue to monitor liver function tests-possible shock liver, trending down -Need for ERCP will be based on progression of liver profile -Supportive care -GI will sign off at this time, please notify for any further needs This patient has been seen by myself and Dr. Catherine and this note is written on his behalf - Attending Attestation Dr. Catherine
[2018-04-19] MEDS: Piperacil/Tazo 2.25 GM Premix 50 ML IV.SIG SCH ×4 (02:33→20:52)
[2018-04-19] MEDS: Artificial Tears Opth Drops 15 ML Bottle EACH EYE SCH ×3 (02:33→18:29)
[2018-04-19] MEDS: Pantoprazole Inj 40 MG Vial IV.PUSH SCH (02:33)
[2018-04-19] MEDS: Chlorhexidine Gluconate 2% 1 Pack (2 Cloths) TOPICAL SCH (03:05)
[2018-04-19] MEDS: Oral Hygiene Kit OROPHARYNG SCH ×3 (03:05→17:24)
[2018-04-19] MEDS: Insulin NovoLOG Aspart Correctional Sugar Inj SQ SCH ×3 (05:20→17:24)
[2018-04-19 05:25] LABS: Baso # (Auto) 0.1 th/mm3 (0.0-0.2); Baso % (Auto) 0.8 % (0.0-2.0); Eos # (Auto) 0.1 th/mm3 (0.0-0.4); Hematocrit 24.5 % (35.0-46.0); Hemoglobin 8.1 gm/dL (11.6-15.3); Lymph # (Auto) 1.5 th/mm3 (1.0-4.8); Lymph % (Auto) 13.1 % (9.0-44.0); Mean Corpuscular Hemoglobin 32.8 pg (27.0-34.0); Mean Corpuscular Volume 99.7 fL (80.0-100.0); Mean Platelet Volume 9.9 fL (7.0-11.0); Mono # (Auto) 1.6 th/mm3 (0.0-0.9); Mono % (Auto) 14.1 % (0.0-8.0); Platelet Count 220 th/mm3 (150-450); Red Blood Count 2.46 mil/mm3 (4.00-5.30); White Blood Count 11.2 th/mm3 (4.0-11.0)
[2018-04-19 05:51] LABS: Alanine Aminotransferase 261 U/L (10-53); Albumin 2.2 g/dL (3.4-5.0); Alkaline Phosphatase 98 U/L (45-117); Anion Gap 14 meq/L (5-15); Aspartate Aminotransferase 96 U/L (15-37); Blood Urea Nitrogen 79 mg/dL (7-18); Calcium 7.8 mg/dL (8.5-10.1); Chloride 104 meq/L (98-107); Glomerular Filtration Rate 5 mL/min (>89); Glucose,Random 143 mg/dL (74-106); Magnesium 2.5 mg/dL (1.5-2.5); Sodium 143 meq/L (136-145); Total Protein 7.3 g/dL (6.4-8.2)
[2018-04-19 05:59] LABS: Phosphorus 10.5 mg/dL (2.5-4.9)
[2018-04-19 06:00] LABS: Potassium 6.8 meq/L (3.5-5.1)
[2018-04-19] MEDS ORDERED: RESP: Albuterol Concentrated 2.5 MG/0.5 ML Neb NEB ONE (07:00)
[2018-04-19] MEDS ORDERED: Sodium Polystyrene Sulfonate/Sorbitol Liq 15 GM/60 ML UDC PO ONE (07:00)
[2018-04-19] MEDS ORDERED: Dextrose 50% in Water 50 ML Vial IV.PUSH ONE (07:00)
--- NOTE | 2018-04-19 07:07 | P.PNCC ---
Subjective Subjective Remarks/Hospital Course: Patient is a 72-year-old female with past medical history significant for previous strokes, TIA, end-stage renal disease on hemodialysis (Monday, Monday schedule), Left AV fistula on 01/2018, type 2 diabetes, and hypertension. EMS was called as her roommate found her unresponsive last seen normal yesterday night. IV 0.4 mg of Narcan was given without any response. Patient was intubated in the emergency department for airway protection, for a GCS 8. Lab work showed leukocytosis of 12,500 with a left shift of 90% neutrophilia, 29% bands. Lactic acid came back at 6. CMP showed potassium of 6.0 bicarb of 16.7, anion gap of 24, liver enzymes were markedly elevated AST 1992 ALT 758, CPK 475, troponin 5.21. EKG did not show any evidence of acute ST elevation. ABG shows pH of 7.19 PCO2 of 48 PaO2 of [address] abdomen pelvis showed distended gallbladder with cholelithiasis, also small amount of air in the fundus of the gallbladder. Critical care medicine was consulted for admission. I evaluated the patient in the emergency department. She is acutely ill critical appearing. Intermittently hypotensive. Dr. Vargas has placed a left subclavian central line. I will start Levophed if needed. Patient received Zosyn and Flagyl in the ED. I will place patient on vancomycin and Zosyn renally dosed. Pierre cultures have been sent. With the CT finding I contacted Dr. Cortes who requested stat ultrasound of the right upper quadrant. Also ID was consulted and I discussed with Dr. Montaño. Patient has healed scars probably few week old laparoscopic abdominal surgery, it is unclear what kind of surgery she had. Dr. Fermin consulted for an STEMI. Nephrology Dr. Gillette consulted for emergent hemodialysis 04/15 -T-max 101. Remains on broad-spectrum antibiotics. Noted cool left fingers not cyanotic but will check fistula Doppler and arterial Dopplers and venous Doppler left upper extremity. Central line placed left subclavian noted. 04/16: T-max 100.5. MRCP pending. Right upper lower extremity and left lower extremity remains warm. Cool left upper extremity. Has seen Dr. Wu for her left AV fistula in the past. Positive dopplerable/patent left AV fistula noted by Doppler 04/15. Downward trending liver function test. 04/17: Afebrile. Patient received 2 doses of digoxin due to A. fib with RVR. Currently normal sinus rhythm. Hypoglycemic overnight requiring D5 normal saline currently at 42 cc an hour. Off all vasopressors. Remains in normal sinus rhythm. Cardiology recommended IV diltiazem for paroxysmal atrial fibrillation. Will order. MRCP result results noted. 04/18: Afebrile. Patient extubated yesterday without complication. Currently resting on simple mask playing of pain but unknown source. Noted vascular surgery's note. Subjective 04/19: Afebrile. Remains on nasal cannula. More alert and interactive today. Will start tube feeds today. Speech evaluation for swallowing. Currently afebrile. No bowel movement. Objective Vital Signs / I&O: Vital Signs 04/18/18 07:30 04/18/18 08:00 04/18/18 08:01 Temperature 98.1 F Pulse Rate 71 75 77 Respiratory Rate 24 24 29 H Blood Pressure 113/47 L 116/51 L Pulse Oximetry 94 L 95 95 04/18/18 08:30 04/18/18 08:44 04/18/18 08:45 Temperature Pulse Rate 76 Respiratory Rate 22 Blood Pressure 87/56 L Pulse Oximetry 92 L 98 98 04/18/18 09:00 04/18/18 10:00 04/18/18 10:31 Temperature Pulse Rate 78 81 82 Respiratory Rate 22 28 H 25 H Blood Pressure 113/49 L 154/65 H Pulse Oximetry 92 L 93 L 90 L 04/18/18 11:00 04/18/18 11:15 04/18/18 11:30 Temperature Pulse Rate 84 84 85 Respiratory Rate 22 18 28 H Blood Pressure 121/55 L 110/56 L Pulse Oximetry 96 95 04/18/18 12:00 04/18/18 12:30 04/18/18 13:00 Temperature 98.5 F Pulse Rate 85 84 84 Respiratory Rate 23 26 H 29 H Blood Pressure 111/76 108/54 L Pulse Oximetry 95 95 95 04/18/18 13:01 04/18/18 14:00 04/18/18 14:31 Temperature Pulse Rate 85 85 82 Respiratory Rate 33 H 27 H 20 Blood Pressure 148/103 H 123/58 L 158/58 H Pulse Oximetry 94 L 94 L 95 04/18/18 15:00 04/18/18 15:31 04/18/18 16:00 Temperature 98.7 F Pulse Rate 79 79 80 Respiratory Rate 29 H 21 16 Blood Pressure 134/83 127/58 L 121/55 L Pulse Oximetry 96 94 L 96 04/18/18 16:30 04/18/18 17:00 04/18/18 17:30 Temperature Pulse Rate 81 83 83 Respiratory Rate 20 20 21 Blood Pressure 120/54 L 119/57 L 103/54 L Pulse Oximetry 96 96 95 04/18/18 18:00 04/18/18 18:27 04/18/18 18:30 Temperature Pulse Rate 90 90 Respiratory Rate 27 H 25 H Blood Pressure 107/76 136/58 L Pulse Oximetry 84 L 93 L 93 L 04/18/18 19:00 04/18/18 19:30 04/18/18 20:00 Temperature 98.8 F Pulse Rate 91 H 89 87 Respiratory Rate 20 23 22 Blood Pressure 127/58 L 115/58 L 113/53 L Pulse Oximetry 93 L 93 L 93 L 04/18/18 20:01 04/18/18 20:30 04/18/18 21:00 Temperature Pulse Rate 88 83 81 Respiratory Rate 19 18 18 Blood Pressure 108/60 121/54 L Pulse Oximetry 95 94 L 95 04/18/18 21:30 04/18/18 22:00 04/18/18 22:30 Temperature Pulse Rate 81 80 78 Respiratory Rate 19 21 18 Blood Pressure 121/58 L 112/55 L 114/60 Pulse Oximetry 94 L 93 L 93 L 04/18/18 23:00 04/18/18 23:30 04/18/18 23:33 Temperature Pulse Rate 77 76 76 Respiratory Rate 20 16 23 Blood Pressure 94/53 L 82/50 L 130/56 L Pulse Oximetry 94 L 94 L 94 L 04/18/18 23:54 04/19/18 00:00 04/19/18 00:12 Temperature 98.6 F Pulse Rate 75 74 Respiratory Rate 21 21 22 Blood Pressure 127/56 L 119/55 L Pulse Oximetry 95 95 04/19/18 00:30 04/19/18 01:00 04/19/18 01:30 Temperature Pulse Rate 72 71 72 Respiratory Rate 22 19 20 Blood Pressure 107/54 L 103/49 L 80/44 L Pulse Oximetry 94 L 94 L 94 L 04/19/18 01:40 04/19/18 01:46 04/19/18 02:00 Temperature Pulse Rate 72 72 71 Respiratory Rate 20 18 19 Blood Pressure 83/47 L 126/58 L 113/53 L Pulse Oximetry 94 L 94 L 94 L 04/19/18 02:15 04/19/18 02:30 04/19/18 02:45 Temperature Pulse Rate 71 72 73 Respiratory Rate 20 18 19 Blood Pressure 108/44 L 87/47 L 90/42 L Pulse Oximetry 94 L 95 94 L 04/19/18 02:47 04/19/18 03:00 04/19/18 03:16 Temperature Pulse Rate 73 72 71 Respiratory Rate 17 19 19 Blood Pressure 96/46 L 99/47 L 121/55 L Pulse Oximetry 94 L 94 L 94 L 04/19/18 03:31 04/19/18 03:45 04/19/18 03:49 Temperature Pulse Rate 72 72 73 Respiratory Rate 17 16 19 Blood Pressure 155/66 H 96/55 L Pulse Oximetry 94 L 93 L 96 04/19/18 04:00 Temperature 98.9 F Pulse Rate 72 Respiratory Rate 16 Blood Pressure 99/50 L Pulse Oximetry 96 Intake & Output 04/18/18 04/19/18 04/19/18 18:59 06:59 18:59 Intake Total 225 / 225 1100 / 1100 Output Total 0 / 0 400 / 400 Balance 225 / 225 700 / 700 Weight 64 kg Intake: IV 225 / 225 1100 / 1100 D5W/Normal Saline Inj 1,000 ML 1000 / 1000 @ 42 mls/hr IV.CONT .[id number] [facility] Rx#:[id number] Cardizem Inj 125 MG In NS Inj 125 / 125 100 ML @ 2.5 MG/HR 2.5 mls/hr IV.CONT TITRATE PRN Rx#: [id number] Zosyn 2.25 GM Premix 50 ML @ 100 / 100 100 / 100 100 mls/hr IV.SIG Q6H [facility] Rx#: [id number] Oral 0 / 0 0 / 0 Output: Urine 0 / 0 0 / 0 Stool 0 / 0 Gastric Drainage 400 / 400 Oral Orogastric Tube 400 / 400 Other: # Bowel Movements 0 Result Diagrams: 04/19/18 04:18 04/19/18 04:18 Other Results: Microbiology 04/15/18 13:55 Blood - Peripheral Aerobic Blood Culture - Preliminary No growth in 3 days 04/15/18 13:55 Blood - Peripheral Anaerobic Blood Culture - Preliminary No growth in 3 days 04/15/18 11:30 Blood - Line Aerobic Blood Culture - Preliminary No growth in 3 days 04/15/18 11:30 Blood - Line Anaerobic Blood Culture - Preliminary No growth in 3 days 04/14/18 10:20 Blood - Peripheral Aerobic Blood Culture - Preliminary No growth in 4 days 04/14/18 10:20 Blood - Peripheral Anaerobic Blood Culture - Preliminary No growth in 4 days 04/14/18 10:25 Blood - Peripheral Aerobic Blood Culture - Preliminary No growth in 4 days 04/14/18 10:25 Blood - Peripheral Anaerobic Blood Culture - Preliminary No growth in 4 days 04/14/18 15:15 Sputum - Endotracheal Gram Stain - Final 04/14/18 15:15 Sputum - Endotracheal Sputum Culture - Final Heavy growth normal respiratory black 04/14/18 10:35 Clean Catch Urine Urine Culture - Final No growth in 48 hours Imaging: Chest X-Ray 04/14/18 09:44 CONCLUSION: Satisfactory position of supporting devices Interval placement of bilateral central venous catheters without evidence of pneumothorax. Cardiomegaly with out evidence of acute airspace disease or significant pulmonary edema. Head CT 04/14/18 09:44 CONCLUSION: 1. 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 2. No evidence of acute infarct, hemorrhage, mass or edema. 3. No significant change compared to 04/12/2017. . Abdomen/Pelvis CT 04/14/18 10:59 CONCLUSION: 1. Distended gallbladder with cholelithiasis and minimal gas in the fundus. There is no significant pericholecystic fluid or inflammation. 2. Simple left renal cyst. 3. Bibasilar airspace disease. Liver Ultrasound 04/14/18 12:44 CONCLUSION: 1. Gallbladder contains sludge and stones. However, no additional findings are present to definitively indicate acute cholecystitis. 2. Common bile duct is enlarged but contains no visible stone. Given the pain one could consider MRCP for further evaluation of the common duct stone as a cause for the duct dilatation in right upper quadrant pain. 3. Atrophic right kidney with changes suggesting chronic medical renal disease. There is a complex cystic lesion in the mid kidney and renal sinus measuring up to 3.5 cm. At some point ideally be further characterized with renal protocol MRI with and without intravenous contrast. This should be performed on an elective basis when condition permits. Extremity Arterial Study 04/15/18 00:00 CONCLUSION: 1. Significantly limited examination due to unobtainable pressures in the forearms bilaterally. 2. Unobtainable pressures and absence of waveforms in the left hand. Cannot exclude steal from patient's left upper extremity brachiobasilic fistula. Upper Extremity Ultrasound 04/15/18 00:00 CONCLUSION: Patent left AV fistula. Venous Doppler Study 04/15/18 00:00 CONCLUSION: No evidence of DVT. Chest X-Ray 04/16/18 06:00 CONCLUSION: No significant interval change. No acute cardiopulmonary disease identified. Cholangiopancreatography MRI 04/16/18 07:10 CONCLUSION: 1. Cholelithiasis with multiple small gallstones layering dependently. There is no gallbladder wall thickening or inflammatory change. No gas is visualized on the MRI. 2. Common bile duct measuring up to 1 cm with no filling defects or mass. This could represent distal obstruction or prior passage of stones. 3. Multiple benign-appearing small cystic structures in the pancreas. 4. Bilateral simple renal cysts as well as a more complex right parapelvic cyst. Chest X-Ray 04/17/18 06:00 CONCLUSION: Minimal right lung base opacity. Chest X-Ray 04/18/18 06:00 CONCLUSION: 1. Endotracheal tube no longer seen. 2. Minimal right lung base opacity unchanged. Objective Remarks: GENERAL: 72-year-old female currently on nasal cannula appears in no acute distress SKIN: Warm and dry with the exception of cool peripheral fingers left upper extremity dopplerable pulses HEAD: Atraumatic. Normocephalic. EYES: Pupils equal and round about 2 mm bilaterally and reactive. No scleral icterus. No injection or drainage. ENT: No nasal bleeding or discharge. Mucous membranes pink and moist. NECK: Trachea midline. No JVD. CARDIOVASCULAR: Regular rate and rhythm. S1, S2. No S4. Murmur RESPIRATORY: Few fine crackles appreciated bilaterally anteriorly posteriorly. No wheezing GASTROINTESTINAL: Abdomen soft, slight right upper quadrant-tender, nondistended. Hepatic and splenic margins not palpable. Hypoactive bowel sounds appreciated. MUSCULOSKELETAL: Extremities without clubbing, cyanosis, or edema. Left AV fistula positive thrill. Patient has a tunneled right IJ Hemovac catheter in the subclavian left triple-lumen catheter in place along with the left femoral arterial line NEUROLOGICAL: Currently arousable and follows commands. Weak left upper extremity to the right. Moaning. Assessment and Plan - Problem List (1) Acute metabolic encephalopathy Code(s): G93.41 - Metabolic encephalopathy Status: Acute (2) Acute hypoxemic respiratory failure Code(s): J96.01 - Acute respiratory failure with hypoxia Status: Acute (3) Septic shock Code(s): A41.9 - Sepsis, unspecified organism; R65.21 - Severe sepsis with septic shock Status: Resolved (4) Lactic acidosis Code(s): E87.2 - Acidosis Status: Acute (5) Non-ST elevated myocardial infarction (non-STEMI) Code(s): I21.4 - Non-ST elevation (NSTEMI) myocardial infarction Status: Acute (6) UTI (urinary tract infection) Code(s): N39.0 - Urinary tract infection, site not specified Status: Acute (7) Liver enzyme elevation Code(s): R74.8 - Abnormal levels of other serum enzymes Status: Acute (8) Emphysematous cholecystitis Code(s): K81.0 - Acute cholecystitis Status: Acute (9) Hyperkalemia Code(s): E87.5 - Hyperkalemia Status: Acute (10) ESRD (end stage renal disease) Code(s): N18.6 - End stage renal disease Status: Chronic (11) HTN (hypertension) Code(s): I10 - Essential (primary) hypertension Status: Chronic (12) Diabetes Code(s): E11.9 - Type 2 diabetes mellitus without complications Status: Chronic (13) GERD (gastroesophageal reflux disease) Code(s): K21.9 - Gastro-esophageal reflux disease without esophagitis Status: Chronic (14) Stroke Code(s): I63.9 - Cerebral infarction, unspecified Status: Chronic (15) TIA (transient ischemic attack) Code(s): G45.9 - Transient cerebral ischemic attack, unspecified Status: Chronic - Assessment and Plan Plan: NEURO/PSYCH: Acute metabolic encephalopathy Old small bilateral cerebellar infarcts. -Encephalopathy seems to be metabolic secondary to severe sepsis -CT of the head shows old bilateral cerebellar strokes, and nothing acute. -As needed fentanyl 25 mg every 3 hours as needed pain RESP: Acute hypoxemic respiratory failure -Intubated in the emergency department for lack of airway protection and hypoxia -Extubated 04/17 -Simple mask/nasal cannula maintain saturations greater than equal to 90%. Wean as tolerated -albuterol/ipratropium aerosols every 4 hours with albuterol aerosols every 2 hours as needed -Incentive spirometry while -Head of bed at 30 degrees -Chest x-ray in a.m. 04/20 CV: NSTEMI likely type II Paroxysmal atrial fibrillation with 2 1 AV conduction Hypotension Lactic acidosis History of hypertension -Continue aspirin 81 mg daily -Cardiology Dr. Fermin consulted NSTEMI most likely type II from sepsis -Avoid IV heparin due to markedly elevated liver enzymes, possible need of surgical intervention -Hold all home antihypertensives (hold nifedipine, clonidine, hydralazine and Lasix) -Cardiology recommended diltiazem 30 mg 4 times daily and carvedilol 3.125 mg twice daily -2d echocardiogram revealed normal left ventricular size. EF 65-70%. Left lipomatous atrial septum,. Trace MR/TR GI: Markedly elevated liver enzymes Probable emphysematous cholecystitis History of GERD -N.p.o Per GI., IV pantoprazole will start on Nepro at 40 cc an hour goal. Switch to omeprazole. Speech eval for swallow. -CT abdomen pelvis shows small amount of air in the fundus of the gallbladder, this is concerning for emphysematous cholecystitis given clinical picture -Stat consult to general surgery and discussed with Dr. Cortes. Recommended conservative therapy at the present time. -Dr. Cortes/general surgery and gastroenterology signed off MRCP -04/16 - cholelithiasis with multiple small gallstones layering dependently. There is no gallbladder wall thickening or inflammatory change. No gas is visualized on the MRI. Common bile duct measuring up to 1 cm with no filling defects or mass. This could represent distal obstruction or prior passage of stones. Multiple benign-appearing small cystic structures in the pancreas. Bilateral simple renal cysts as well as a more complex right parapelvic cyst. -Possible ERCP. LFTs very slowly trending downward -GI signed off. Renal/: End-stage renal disease -Monitor renal function closely. -Dr. Gillette consulted for emergent hemodialysis on 04/14. Per his schedule -Monitor urine output accurate I's and O's ID: Septic shock Probable emphysematous cholecystitis Possible UTI -Antibiotics with piperacillin/tazobactam. Discontinued vancomycin 04/16 -Infectious disease and general surgery consulted -Follow-up blood urine and sputum cultures no growth to date HEME: Normocytic anemia Leukocytosis -Monitor CBC, coags -No indication for transfusion of blood products at this time ENDO/FEN: Hyperphosphatemia Hyperkalemia Type 2 diabetes -Sliding scale insulin -Currently D5 normal saline at 42 cc hours with hypoglycemic episode -Insulin/D50/bicarbonate/Kayexalate x1 now. Recheck at 10 and let nephrology know for possible dialysis MSK Cyanosis left upper extremity Followed by Dr. Wu. Might need ligation per his recommendations. PROPH: -Bilateral lower extremity SCDs. Heparin sq/omeprazole LINES: -Utilize peripheral IVs, left subclavian central line day #5 with left femoral arterial line day #3 both discontinued 04/18 Level 2 follow-up If potassium remained stable after dialysis/treatment. Will transfer care to hospitalist in a.m. 04/20. Code Status: Full code (6) UTI (urinary tract infection) Qualifiers: Urinary tract infection type: site unspecified Hematuria presence: without hematuria Qualified Code(s): N39.0 - Urinary tract infection, site not specified (11) HTN (hypertension) Qualifiers: Hypertension type: unspecified Qualified Code(s): I10 - Essential (primary) hypertension (12) Diabetes Qualifiers: Diabetes mellitus type: other specified (including YOVANI) Diabetes mellitus continuous churn buttermaker insulin use: unspecified continuous churn buttermaker insulin use status Diabetes mellitus complication status: with unspecified complications Qualified Code(s) : E13.8 - Other specified diabetes mellitus with unspecified complications (13) GERD (gastroesophageal reflux disease) Qualifiers: Esophagitis presence: esophagitis presence not specified Qualified Code(s): K21.9 - Gastro-esophageal reflux disease without esophagitis (14) Stroke Qualifiers: CVA mechanism: unspecified Qualified Code(s): I63.9 - Cerebral infarction, unspecified
[2018-04-19] MEDS: Chlorhexidine 0.12% Oral Kit 15 ML UDC OROPHARYNG SCH ×2 (07:30→20:53)
[2018-04-19] MEDS: Mupirocin 2% Nasal Oint Topical Syringe EACH NARE SCH ×2 (09:01→20:53)
[2018-04-19] MEDS: Heparin - SQ 10,000 UNITS/ML Vial SQ SCH ×2 (09:02→20:54)
[2018-04-19] MEDS: dilTIAZem 30 MG Tablet PO SCH ×5 (09:02→23:11)
--- NOTE | 2018-04-19 10:12 | OTSOAPIP ---
TIME SESSION COMPLETED: 1000 PATIENT RECEIVING DIALYSIS TREATMENT. WILL REATTEMPT SCHEDULE PERMITS. DIAMOND Therapist: Amy Victoria Signature on file
[2018-04-19] MEDS: Heparin 10,000 UNITS/10 ML Vial (for IV use) OTHER PRN (11:31)
--- NOTE | 2018-04-19 11:45 | P.PNVS ---
Subjective Subjective/Hospital Course: Pt w/ L UE access several months ago. Adm with sepsis, just extubated LEFT arm still cool. Confused and difficult to assess Objective Vital Signs / I&O: Vital Signs 04/18/18 12:00 04/18/18 12:30 04/18/18 13:00 Temperature 98.5 F Pulse Rate 85 84 84 Respiratory Rate 23 26 H 29 H Blood Pressure 111/76 108/54 L Pulse Oximetry 95 95 95 04/18/18 13:01 04/18/18 14:00 04/18/18 14:31 Temperature Pulse Rate 85 85 82 Respiratory Rate 33 H 27 H 20 Blood Pressure 148/103 H 123/58 L 158/58 H Pulse Oximetry 94 L 94 L 95 04/18/18 15:00 04/18/18 15:31 04/18/18 16:00 Temperature 98.7 F Pulse Rate 79 79 80 Respiratory Rate 29 H 21 16 Blood Pressure 134/83 127/58 L 121/55 L Pulse Oximetry 96 94 L 96 04/18/18 16:30 04/18/18 17:00 04/18/18 17:30 Temperature Pulse Rate 81 83 83 Respiratory Rate 20 20 21 Blood Pressure 120/54 L 119/57 L 103/54 L Pulse Oximetry 96 96 95 04/18/18 18:00 04/18/18 18:27 04/18/18 18:30 Temperature Pulse Rate 90 90 Respiratory Rate 27 H 25 H Blood Pressure 107/76 136/58 L Pulse Oximetry 84 L 93 L 93 L 04/18/18 19:00 04/18/18 19:30 04/18/18 20:00 Temperature 98.8 F Pulse Rate 91 H 89 87 Respiratory Rate 20 23 22 Blood Pressure 127/58 L 115/58 L 113/53 L Pulse Oximetry 93 L 93 L 93 L 04/18/18 20:01 04/18/18 20:30 04/18/18 21:00 Temperature Pulse Rate 88 83 81 Respiratory Rate 19 18 18 Blood Pressure 108/60 121/54 L Pulse Oximetry 95 94 L 95 04/18/18 21:30 04/18/18 22:00 04/18/18 22:30 Temperature Pulse Rate 81 80 78 Respiratory Rate 19 21 18 Blood Pressure 121/58 L 112/55 L 114/60 Pulse Oximetry 94 L 93 L 93 L 04/18/18 23:00 04/18/18 23:30 04/18/18 23:33 Temperature Pulse Rate 77 76 76 Respiratory Rate 20 16 23 Blood Pressure 94/53 L 82/50 L 130/56 L Pulse Oximetry 94 L 94 L 94 L 04/18/18 23:54 04/19/18 00:00 04/19/18 00:12 Temperature 98.6 F Pulse Rate 75 74 Respiratory Rate 21 21 22 Blood Pressure 127/56 L 119/55 L Pulse Oximetry 95 95 04/19/18 00:30 04/19/18 01:00 04/19/18 01:30 Temperature Pulse Rate 72 71 72 Respiratory Rate 22 19 20 Blood Pressure 107/54 L 103/49 L 80/44 L Pulse Oximetry 94 L 94 L 94 L 04/19/18 01:40 04/19/18 01:46 04/19/18 02:00 Temperature Pulse Rate 72 72 71 Respiratory Rate 20 18 19 Blood Pressure 83/47 L 126/58 L 113/53 L Pulse Oximetry 94 L 94 L 94 L 04/19/18 02:15 04/19/18 02:30 04/19/18 02:45 Temperature Pulse Rate 71 72 73 Respiratory Rate 20 18 19 Blood Pressure 108/44 L 87/47 L 90/42 L Pulse Oximetry 94 L 95 94 L 04/19/18 02:47 04/19/18 03:00 04/19/18 03:16 Temperature Pulse Rate 73 72 71 Respiratory Rate 17 19 19 Blood Pressure 96/46 L 99/47 L 121/55 L Pulse Oximetry 94 L 94 L 94 L 04/19/18 03:31 04/19/18 03:45 04/19/18 03:49 Temperature Pulse Rate 72 72 73 Respiratory Rate 17 16 19 Blood Pressure 155/66 H 96/55 L Pulse Oximetry 94 L 93 L 96 04/19/18 04:00 04/19/18 04:30 04/19/18 05:00 Temperature 98.9 F Pulse Rate 72 72 73 Respiratory Rate 16 17 13 Blood Pressure 99/50 L 103/51 L 105/58 L Pulse Oximetry 96 96 95 04/19/18 05:31 04/19/18 06:00 04/19/18 06:30 Temperature Pulse Rate 72 73 73 Respiratory Rate 19 16 20 Blood Pressure 140/63 122/52 L 117/54 L Pulse Oximetry 94 L 96 96 04/19/18 07:00 04/19/18 07:30 04/19/18 07:39 Temperature Pulse Rate 71 72 74 Respiratory Rate 15 18 16 Blood Pressure 119/58 L 107/56 L Pulse Oximetry 94 L 94 L 94 L 04/19/18 08:00 04/19/18 08:30 04/19/18 08:51 Temperature 99.9 F H Pulse Rate 80 81 80 Respiratory Rate 15 17 16 Blood Pressure 86/50 L 82/44 L 134/71 Pulse Oximetry 93 L 95 93 L 04/19/18 09:00 Temperature Pulse Rate 85 Respiratory Rate Blood Pressure Pulse Oximetry Intake & Output 04/18/18 04/19/18 04/19/18 18:59 06:59 18:59 Intake Total 225 / 225 1100 / 1100 50 / 50 Output Total 0 / 0 400 / 400 1000 / 1000 Balance 225 / 225 700 / 700 -950 / -950 Weight 64 kg Intake: IV 225 / 225 1100 / 1100 50 / 50 D5W/Normal Saline Inj 1,000 ML 1000 / 1000 @ 42 mls/hr IV.CONT .[id number] [facility] Rx#:[id number] Cardizem Inj 125 MG In NS Inj 125 / 125 100 ML @ 2.5 MG/HR 2.5 mls/hr IV.CONT TITRATE PRN Rx#: [id number] Zosyn 2.25 GM Premix 50 ML @ 100 / 100 100 / 100 50 / 50 100 mls/hr IV.SIG Q6H [facility] Rx#: [id number] Oral 0 / 0 0 / 0 Output: Urine 0 / 0 0 / 0 Stool 0 / 0 Hemodialysis Amount 1000 / 1000 Gastric Drainage 400 / 400 Oral Orogastric Tube 400 / 400 Other: # Bowel Movements 0 Physical Exam: L hand with mottling Left radial and ulnar signals dopplerable and augment with left upper extremity arteriovenous fistula compression Laboratory Results - last 24 hr 04/18/18 04/18/18 04/19/18 17:19 23:17 04:18 WBC 11.2 H RBC 2.46 L Hgb 8.1 L Hct 24.5 L MCV 99.7 MCH 32.8 MCHC 33.0 RDW 19.0 H Plt Count 220 MPV 9.9 Prelim Diff (Auto) Slide review pending Neut % (Auto) 71.0 H Lymph % (Auto) 13.1 [place] % (Auto) 14.1 H Eos % (Auto) 1.0 Baso % (Auto) 0.8 Neut # (Auto) 8.0 H Lymph # (Auto) 1.5 [place] # (Auto) 1.6 H Eos # (Auto) 0.1 Baso # (Auto) 0.1 WBC Differential . Diff Scan Auto diff confirmed Differential Comment . Sodium Potassium Chloride Carbon Dioxide Anion Gap BUN Creatinine Estimated GFR POC Glucose 144 H 155 H Random Glucose Calcium Phosphorus Magnesium Total Bilirubin AST ALT Alkaline Phosphatase Total Protein Albumin 04/19/18 04/19/18 04/19/18 04:18 05:17 11:09 WBC RBC Hgb Hct MCV MCH MCHC RDW Plt Count MPV Prelim Diff (Auto) Neut % (Auto) Lymph % (Auto) [place] % (Auto) Eos % (Auto) Baso % (Auto) Neut # (Auto) Lymph # (Auto) [place] # (Auto) Eos # (Auto) Baso # (Auto) WBC Differential Diff Scan Differential Comment Sodium 143 Potassium 6.8 H* D Chloride 104 Carbon Dioxide 25.0 Anion Gap 14 BUN 79 H Creatinine 8.21 H Estimated GFR 5 L POC Glucose 153 H 140 H Random Glucose 143 H Calcium 7.8 L D Phosphorus 10.5 H D Magnesium 2.5 Total Bilirubin 1.1 H AST 96 H ALT 261 H Alkaline Phosphatase 98 Total Protein 7.3 Albumin 2.2 L Microbiology 04/15/18 13:55 Aerobic Blood Culture - Preliminary Blood - Peripheral No growth in 4 days Anaerobic Blood Culture - Preliminary No growth in 4 days 04/15/18 11:30 Aerobic Blood Culture - Preliminary Blood - Line No growth in 4 days Anaerobic Blood Culture - Preliminary No growth in 4 days 04/14/18 10:20 Aerobic Blood Culture - Final Blood - Peripheral No growth in 5 days Anaerobic Blood Culture - Final No growth in 5 days 04/14/18 10:25 Aerobic Blood Culture - Final Blood - Peripheral No growth in 5 days Anaerobic Blood Culture - Final No growth in 5 days Impressions Chest X-Ray 04/18/18 06:00 CONCLUSION: 1. Endotracheal tube no longer seen. 2. Minimal right lung base opacity unchanged. 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 I will plan left upper extremity AV fistula ligation to augment flow to the left hand Risk benefits and alternatives were explained to the patient's daughter George Olivas. I explained the risk, benefits, and alternatives to her and she consented to the procedure. Alexis Stuart MD [phone]
--- NOTE | 2018-04-19 12:11 | P.PNID ---
Subjective Remarks: ID Coverage is a 72 y/o WF with PMHx of CKD s/p attempt at PD catheter placement due to non compliance, also Left Brachiocephalic AV fistula on 2017 by . Patient was reportedly found with decreased level of consciousness. Room mates do not know much about her medical history and reportedly seen her normal the night prior. Per records EMS gave her Narcan and there was improvement noted. No family nos on chart and old records could not be assessed. Patients past medical records from prior visits could not be accessed by me but patient has CKD and prior Bradycardia on prior admit. Also patient has a history of stroke diabetes hypertension GERD. On admission she had leukocytosis of 12,000 with a left shift. Metabolic acidosis on ABG. Lactic acid 6.Troponins elevated. Cr at 9.6. Normal lipase, LFTs in thousands. CT with air concerning for emphysematous cholecystitis. At the time of my evaluation patient is in IMC, not on pressors, has received fluid bolus amount not documented per RN. She is currently intubated, not sedated, opens eyes, does not follow commands for me. No obvious focal deficit. ID consulted for evaluation and Mment of Severe Sepsis, possible acute cholecystitis. Notes reviewed Extubated and tolerating this Constant moaning Confused Vascular surgery notes reviewed Temps ok BP ok WBC ok LUE bluish discoloration of fingers. Cool clammy fingers L hand. Antibiotics: zosyn IV Lines: Line sites ok Past Medical History: reviewed Allergies/Adverse Reactions: Allergies No Known Allergies Allergy (Verified 01/22/18 10:23) Objective Vital Signs 04/18/18 12:30 04/18/18 13:00 04/18/18 13:01 Temperature Pulse Rate 84 84 85 Respiratory Rate 26 H 29 H 33 H Blood Pressure 108/54 L 148/103 H Pulse Oximetry 95 95 94 L 04/18/18 14:00 04/18/18 14:31 04/18/18 15:00 Temperature Pulse Rate 85 82 79 Respiratory Rate 27 H 20 29 H Blood Pressure 123/58 L 158/58 H 134/83 Pulse Oximetry 94 L 95 96 04/18/18 15:31 04/18/18 16:00 04/18/18 16:30 Temperature 98.7 F Pulse Rate 79 80 81 Respiratory Rate 21 16 20 Blood Pressure 127/58 L 121/55 L 120/54 L Pulse Oximetry 94 L 96 96 04/18/18 17:00 04/18/18 17:30 04/18/18 18:00 Temperature Pulse Rate 83 83 90 Respiratory Rate 20 21 27 H Blood Pressure 119/57 L 103/54 L 107/76 Pulse Oximetry 96 95 84 L 04/18/18 18:27 04/18/18 18:30 04/18/18 19:00 Temperature Pulse Rate 90 91 H Respiratory Rate 25 H 20 Blood Pressure 136/58 L 127/58 L Pulse Oximetry 93 L 93 L 93 L 04/18/18 19:30 04/18/18 20:00 04/18/18 20:01 Temperature 98.8 F Pulse Rate 89 87 88 Respiratory Rate 23 22 19 Blood Pressure 115/58 L 113/53 L Pulse Oximetry 93 L 93 L 95 04/18/18 20:30 04/18/18 21:00 04/18/18 21:30 Temperature Pulse Rate 83 81 81 Respiratory Rate 18 18 19 Blood Pressure 108/60 121/54 L 121/58 L Pulse Oximetry 94 L 95 94 L 04/18/18 22:00 04/18/18 22:30 04/18/18 23:00 Temperature Pulse Rate 80 78 77 Respiratory Rate 21 18 20 Blood Pressure 112/55 L 114/60 94/53 L Pulse Oximetry 93 L 93 L 94 L 04/18/18 23:30 04/18/18 23:33 04/18/18 23:54 Temperature Pulse Rate 76 76 75 Respiratory Rate 16 23 21 Blood Pressure 82/50 L 130/56 L 127/56 L Pulse Oximetry 94 L 94 L 95 04/19/18 00:00 04/19/18 00:12 04/19/18 00:30 Temperature 98.6 F Pulse Rate 74 72 Respiratory Rate 21 22 22 Blood Pressure 119/55 L 107/54 L Pulse Oximetry 95 94 L 04/19/18 01:00 04/19/18 01:30 04/19/18 01:40 Temperature Pulse Rate 71 72 72 Respiratory Rate 19 20 20 Blood Pressure 103/49 L 80/44 L 83/47 L Pulse Oximetry 94 L 94 L 94 L 04/19/18 01:46 04/19/18 02:00 04/19/18 02:15 Temperature Pulse Rate 72 71 71 Respiratory Rate 18 19 20 Blood Pressure 126/58 L 113/53 L 108/44 L Pulse Oximetry 94 L 94 L 94 L 04/19/18 02:30 04/19/18 02:45 04/19/18 02:47 Temperature Pulse Rate 72 73 73 Respiratory Rate 18 19 17 Blood Pressure 87/47 L 90/42 L 96/46 L Pulse Oximetry 95 94 L 94 L 04/19/18 03:00 04/19/18 03:16 04/19/18 03:31 Temperature Pulse Rate 72 71 72 Respiratory Rate 19 19 17 Blood Pressure 99/47 L 121/55 L 155/66 H Pulse Oximetry 94 L 94 L 94 L 04/19/18 03:45 04/19/18 03:49 04/19/18 04:00 Temperature 98.9 F Pulse Rate 72 73 72 Respiratory Rate 16 19 16 Blood Pressure 96/55 L 99/50 L Pulse Oximetry 93 L 96 96 04/19/18 04:30 04/19/18 05:00 04/19/18 05:31 Temperature Pulse Rate 72 73 72 Respiratory Rate 17 13 19 Blood Pressure 103/51 L 105/58 L 140/63 Pulse Oximetry 96 95 94 L 04/19/18 06:00 04/19/18 06:30 04/19/18 07:00 Temperature Pulse Rate 73 73 71 Respiratory Rate 16 20 15 Blood Pressure 122/52 L 117/54 L 119/58 L Pulse Oximetry 96 96 94 L 04/19/18 07:30 04/19/18 07:39 04/19/18 08:00 Temperature 99.9 F H Pulse Rate 72 74 80 Respiratory Rate 18 16 15 Blood Pressure 107/56 L 86/50 L Pulse Oximetry 94 L 94 L 93 L 04/19/18 08:30 04/19/18 08:51 04/19/18 09:00 Temperature Pulse Rate 81 80 85 Respiratory Rate 17 16 Blood Pressure 82/44 L 134/71 Pulse Oximetry 95 93 L Intake & Output 04/18/18 04/19/18 04/19/18 18:59 06:59 18:59 Intake Total 225 / 225 1100 / 1100 50 / 50 Output Total 0 / 0 400 / 400 1000 / 1000 Balance 225 / 225 700 / 700 -950 / -950 Weight 64 kg Intake: IV 225 / 225 1100 / 1100 50 / 50 D5W/Normal Saline Inj 1,000 ML 1000 / 1000 @ 42 mls/hr IV.CONT .[id number] [facility] Rx#:[id number] Cardizem Inj 125 MG In NS Inj 125 / 125 100 ML @ 2.5 MG/HR 2.5 mls/hr IV.CONT TITRATE PRN Rx#: [id number] Zosyn 2.25 GM Premix 50 ML @ 100 / 100 100 / 100 50 / 50 100 mls/hr IV.SIG Q6H [facility] Rx#: [id number] Oral 0 / 0 0 / 0 Output: Urine 0 / 0 0 / 0 Stool 0 / 0 Hemodialysis Amount 1000 / 1000 Gastric Drainage 400 / 400 Oral Orogastric Tube 400 / 400 Other: # Bowel Movements 0 04/15/18 13:55 Blood - Peripheral Aerobic Blood Culture - Preliminary No growth in 4 days 04/15/18 13:55 Blood - Peripheral Anaerobic Blood Culture - Preliminary No growth in 4 days 04/15/18 11:30 Blood - Line Aerobic Blood Culture - Preliminary No growth in 4 days 04/15/18 11:30 Blood - Line Anaerobic Blood Culture - Preliminary No growth in 4 days 04/14/18 10:20 Blood - Peripheral Aerobic Blood Culture - Final No growth in 5 days 04/14/18 10:20 Blood - Peripheral Anaerobic Blood Culture - Final No growth in 5 days 04/14/18 10:25 Blood - Peripheral Aerobic Blood Culture - Final No growth in 5 days 04/14/18 10:25 Blood - Peripheral Anaerobic Blood Culture - Final No growth in 5 days 04/14/18 15:15 Sputum - Endotracheal Gram Stain - Final 04/14/18 15:15 Sputum - Endotracheal Sputum Culture - Final Heavy growth normal respiratory black 04/14/18 10:35 Clean Catch Urine Urine Culture - Final No growth in 48 hours Lab - Hematology Results 04/18/18 04/19/18 03:25 04:18 WBC 8.8 11.2 H RBC 2.97 L 2.46 L Hgb 9.7 L 8.1 L Hct 29.3 L 24.5 L MCV 98.7 99.7 MCH 32.5 32.8 MCHC 33.0 33.0 RDW 18.6 H 19.0 H Plt Count 206 220 MPV 9.3 9.9 Prelim Diff (Auto) Slide review pending Slide review pending Neut % (Auto) 75.5 H 71.0 H Lymph % (Auto) 10.0 13.1 [place] % (Auto) 13.6 H 14.1 H Eos % (Auto) 0.4 1.0 Baso % (Auto) 0.5 0.8 Neut # (Auto) 6.7 8.0 H Lymph # (Auto) 0.9 L 1.5 [place] # (Auto) 1.2 H 1.6 H Eos # (Auto) 0.0 0.1 Baso # (Auto) 0.0 0.1 WBC Differential Manual diff final . Diff Scan Auto diff confirmed Seg Neuts % (Manual) 68 Lymphocytes % (Manual) 19 Monocytes % (Manual) 9 H Basophils % (Manual) 1 Metamyelocytes % (Man) 2 H Myelocytes % (Man) 1 H Abs Neuts (Manual) 6.2 Differential Comment . . Dohle Bodies Present H Platelet Estimate Normal Platelet Morphology Normal Basophilic Stippling Faint H Lab - Chemistry Results 04/17/18 04/17/18 04/18/18 16:56 23:49 03:25 Sodium 141 Potassium 4.9 Chloride 100 Carbon Dioxide 27.9 Anion Gap 13 BUN 56 H Creatinine 6.44 H Estimated GFR 6 L POC Glucose 137 H 172 H Random Glucose 134 H Lactic Acid Calcium 8.6 D Phosphorus 9.2 H D Magnesium 2.4 Total Bilirubin 1.3 H AST 217 H ALT 460 H Alkaline Phosphatase 95 Ammonia Total Creatine Kinase 566 H CK-MB (CK-2) 10.6 H CK-MB (CK-2) % 1.9 Total Protein 7.8 D Albumin 2.6 L Lipase 217 04/18/18 04/18/18 04/18/18 03:25 03:25 05:37 Sodium Potassium Chloride Carbon Dioxide Anion Gap BUN Creatinine Estimated GFR POC Glucose 139 H Random Glucose Lactic Acid 0.8 Calcium Phosphorus Magnesium Total Bilirubin AST ALT Alkaline Phosphatase Ammonia 16 Total Creatine Kinase CK-MB (CK-2) CK-MB (CK-2) % Total Protein Albumin Lipase 04/18/18 04/18/18 04/18/18 11:19 17:19 23:17 Sodium Potassium Chloride Carbon Dioxide Anion Gap BUN Creatinine Estimated GFR POC Glucose 151 H 144 H 155 H Random Glucose Lactic Acid Calcium Phosphorus Magnesium Total Bilirubin AST ALT Alkaline Phosphatase Ammonia Total Creatine Kinase CK-MB (CK-2) CK-MB (CK-2) % Total Protein Albumin Lipase 04/19/18 04/19/18 04/19/18 04:18 05:17 11:09 Sodium 143 Potassium 6.8 H* D Chloride 104 Carbon Dioxide 25.0 Anion Gap 14 BUN 79 H Creatinine 8.21 H Estimated GFR 5 L POC Glucose 153 H 140 H Random Glucose 143 H Lactic Acid Calcium 7.8 L D Phosphorus 10.5 H D Magnesium 2.5 Total Bilirubin 1.1 H AST 96 H ALT 261 H Alkaline Phosphatase 98 Ammonia Total Creatine Kinase CK-MB (CK-2) CK-MB (CK-2) % Total Protein 7.3 Albumin 2.2 L Lipase Imaging: ITS Impressions Head CT 04/14/18 09:44 CONCLUSION: 1. 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 2. No evidence of acute infarct, hemorrhage, mass or edema. 3. No significant change compared to 04/12/2017. . Abdomen/Pelvis CT 04/14/18 10:59 CONCLUSION: 1. Distended gallbladder with cholelithiasis and minimal gas in the fundus. There is no significant pericholecystic fluid or inflammation. 2. Simple left renal cyst. 3. Bibasilar airspace disease. Liver Ultrasound 04/14/18 12:44 CONCLUSION: 1. Gallbladder contains sludge and stones. However, no additional findings are present to definitively indicate acute cholecystitis. 2. Common bile duct is enlarged but contains no visible stone. Given the pain one could consider MRCP for further evaluation of the common duct stone as a cause for the duct dilatation in right upper quadrant pain. 3. Atrophic right kidney with changes suggesting chronic medical renal disease. There is a complex cystic lesion in the mid kidney and renal sinus measuring up to 3.5 cm. At some point ideally be further characterized with renal protocol MRI with and without intravenous contrast. This should be performed on an elective basis when condition permits. Extremity Arterial Study 04/15/18 00:00 CONCLUSION: 1. Significantly limited examination due to unobtainable pressures in the forearms bilaterally. 2. Unobtainable pressures and absence of waveforms in the left hand. Cannot exclude steal from patient's left upper extremity brachiobasilic fistula. Upper Extremity Ultrasound 04/15/18 00:00 CONCLUSION: Patent left AV fistula. Venous Doppler Study 04/15/18 00:00 CONCLUSION: No evidence of DVT. Cholangiopancreatography MRI 04/16/18 07:10 CONCLUSION: 1. Cholelithiasis with multiple small gallstones layering dependently. There is no gallbladder wall thickening or inflammatory change. No gas is visualized on the MRI. 2. Common bile duct measuring up to 1 cm with no filling defects or mass. This could represent distal obstruction or prior passage of stones. 3. Multiple benign-appearing small cystic structures in the pancreas. 4. Bilateral simple renal cysts as well as a more complex right parapelvic cyst. Chest X-Ray 04/18/18 06:00 CONCLUSION: 1. Endotracheal tube no longer seen. 2. Minimal right lung base opacity unchanged. Physical Exam: GENERAL: Awake, responding, NAD SKIN: Cool and dry, no generalized rash HEAD: Atraumatic. Normocephalic. No temporal or scalp tenderness. EYES: Pupils equal round and reactive. Scleral icterus. No injection or drainage. No petechia ENT: Dry oral mucosa NECK: Trachea midline. Supple, nontender, no meningeal signs. CARDIOVASCULAR: HS audible. RESPIRATORY: Air entry equal bilaterally. Decreased BS at bases GASTROINTESTINAL: Abdomen soft, not distended, min tender. MUSCULOSKELETAL: Lower Extremities with no evidence of infection. Left AV fistula site ok. Left fingers bluish hue, cold clammy. NEUROLOGICAL: Awake, following commands Psych: cooperative IV line sites ok. HD cath and CL site ok. Assessment and Plan - Plan Severe Sepsis Probable acute emphysematous cholecystitis (CT findings and RUQ tenderness) CKD Attempted PD catheter placement in 01/2018. AV fistula LUE placed on 01/22/2018. Acute metabolic encephalopathy: sepsis, metabolic. Recs: Continue Zosyn IV Follow temps Monitor progress. Vascular evaluation LUE
[2018-04-19] MEDS: Calcium Acetate 667 MG Capsule NG/OG SCH ×2 (12:43→17:46)
--- NOTE | 2018-04-19 15:56 | P.DIET ---
Nutritional Evaluation Type of nutrition evaluation: initial Nutrition consult regarding: Diet Evaluation Screening comments: NPO Alert. Pt was admitted on 04/14 with dx of sepsis and has been npo since admission. Currently intubated with og-t to LIWS. Please consult RD if nutrition support is needed. 04/19 TF review Objective - Diagnosis sepsis unk source, non STEMI - Objective Body Mass Index: 21.5 % IBW: 101 (IBW = 140lb) Body Weight Used for Calculations: Actual (64kg) Energy Needs - Lower Range (kCal/kg): 28 Energy Needs - Upper Range (kCal/kg): 32 Lower Limit kCal/kg (kCals): 1,792 Upper Limit kCal/kg (kCals): 2,048 Lower Limit Protein Factor (Grams per Kg): 1.2 Upper Limit Protein Factor (Grams per Kg): 1.4 Lower Protein Needs (Protein): 77 Upper Protein Needs (Protein): 90 Dietitian Reviewed in Medical Record: Curent medications, Intake & Output, Labs , Medical history, Tube feeding Diet Order: TF'ing Objective Comments: PMH: DM, ERSD, GERD, MRSA, HTN, stroke, TIA Meds: fentanyl, novolin insulin, zofran, zosyn Labs: BUN 79, Cr 8.21, GFR 5, POC glucose 151 155 140, Ca+ 7.8, Phos 10.5 Assessment Assessment: Pt was extubated on 04/18, receiving HD now. Pt currently TF'ing Nepro 1.8 @ 10mL/hr, 40mL/hr as goal rate. ST notes reviewed, pt unable to pass PO trials, remains NPO. RD recommend increasing TF rate to Nepro 1.8 @ 45mL/hr to provide 1944kcal, 88g of protein, and 785mL of free water to best meet pts assessed needs. Continue to monitor TF tolerance. Monitor renal and glucose levels. Labs reviewed, dietitian following. Recommendations: 1. RD recommend increasing TF rate to Nepro 1.8 @ 45mL/hr to best meet pts assessed needs 2. Continue to monitor TF tolerance 3. Monitor renal and glucose levels 4. Dietitian following Dietitian to Monitor: Lab values, Renal labs, Glucose level, Intake & Output, Tube feeding tolerance, Medical course
--- NOTE | 2018-04-19 16:05 | P.PNNP ---
Subjective Interval history: Patient was seen during dialysis, on 1K due to potassium level of 6.8. Patient is staring tube feeding today and getting swallow evaluation done. <Nehemiah Reyes - Last Filed: 04/19/18 16:06> Physical Exam Vital signs: Vital Signs 04/18/18 16:30 04/18/18 17:00 04/18/18 17:30 Temperature Pulse Rate 81 83 83 Respiratory Rate 20 20 21 Blood Pressure 120/54 L 119/57 L 103/54 L Pulse Oximetry 96 96 95 04/18/18 18:00 04/18/18 18:27 04/18/18 18:30 Temperature Pulse Rate 90 90 Respiratory Rate 27 H 25 H Blood Pressure 107/76 136/58 L Pulse Oximetry 84 L 93 L 93 L 04/18/18 19:00 04/18/18 19:30 04/18/18 20:00 Temperature 98.8 F Pulse Rate 91 H 89 87 Respiratory Rate 20 23 22 Blood Pressure 127/58 L 115/58 L 113/53 L Pulse Oximetry 93 L 93 L 93 L 04/18/18 20:01 04/18/18 20:30 04/18/18 21:00 Temperature Pulse Rate 88 83 81 Respiratory Rate 19 18 18 Blood Pressure 108/60 121/54 L Pulse Oximetry 95 94 L 95 04/18/18 21:30 04/18/18 22:00 04/18/18 22:30 Temperature Pulse Rate 81 80 78 Respiratory Rate 19 21 18 Blood Pressure 121/58 L 112/55 L 114/60 Pulse Oximetry 94 L 93 L 93 L 04/18/18 23:00 04/18/18 23:30 04/18/18 23:33 Temperature Pulse Rate 77 76 76 Respiratory Rate 20 16 23 Blood Pressure 94/53 L 82/50 L 130/56 L Pulse Oximetry 94 L 94 L 94 L 04/18/18 23:54 04/19/18 00:00 04/19/18 00:12 Temperature 98.6 F Pulse Rate 75 74 Respiratory Rate 21 21 22 Blood Pressure 127/56 L 119/55 L Pulse Oximetry 95 95 04/19/18 00:30 04/19/18 01:00 04/19/18 01:30 Temperature Pulse Rate 72 71 72 Respiratory Rate 22 19 20 Blood Pressure 107/54 L 103/49 L 80/44 L Pulse Oximetry 94 L 94 L 94 L 04/19/18 01:40 04/19/18 01:46 04/19/18 02:00 Temperature Pulse Rate 72 72 71 Respiratory Rate 20 18 19 Blood Pressure 83/47 L 126/58 L 113/53 L Pulse Oximetry 94 L 94 L 94 L 04/19/18 02:15 04/19/18 02:30 04/19/18 02:45 Temperature Pulse Rate 71 72 73 Respiratory Rate 20 18 19 Blood Pressure 108/44 L 87/47 L 90/42 L Pulse Oximetry 94 L 95 94 L 04/19/18 02:47 04/19/18 03:00 04/19/18 03:16 Temperature Pulse Rate 73 72 71 Respiratory Rate 17 19 19 Blood Pressure 96/46 L 99/47 L 121/55 L Pulse Oximetry 94 L 94 L 94 L 04/19/18 03:31 04/19/18 03:45 04/19/18 03:49 Temperature Pulse Rate 72 72 73 Respiratory Rate 17 16 19 Blood Pressure 155/66 H 96/55 L Pulse Oximetry 94 L 93 L 96 04/19/18 04:00 04/19/18 04:30 04/19/18 05:00 Temperature 98.9 F Pulse Rate 72 72 73 Respiratory Rate 16 17 13 Blood Pressure 99/50 L 103/51 L 105/58 L Pulse Oximetry 96 96 95 04/19/18 05:31 04/19/18 06:00 04/19/18 06:30 Temperature Pulse Rate 72 73 73 Respiratory Rate 19 16 20 Blood Pressure 140/63 122/52 L 117/54 L Pulse Oximetry 94 L 96 96 04/19/18 07:00 04/19/18 07:30 04/19/18 07:39 Temperature Pulse Rate 71 72 74 Respiratory Rate 15 18 16 Blood Pressure 119/58 L 107/56 L Pulse Oximetry 94 L 94 L 94 L 04/19/18 08:00 04/19/18 08:30 04/19/18 08:51 Temperature 99.9 F H Pulse Rate 80 81 80 Respiratory Rate 15 17 16 Blood Pressure 86/50 L 82/44 L 134/71 Pulse Oximetry 93 L 95 93 L 04/19/18 09:00 04/19/18 09:01 04/19/18 09:15 Temperature Pulse Rate 80 81 82 Respiratory Rate 15 18 13 Blood Pressure 100/49 L 83/47 L Pulse Oximetry 94 L 94 L 96 04/19/18 09:30 04/19/18 09:46 04/19/18 10:00 Temperature Pulse Rate 85 86 86 Respiratory Rate 13 16 16 Blood Pressure 91/45 L 132/58 L 106/49 L Pulse Oximetry 93 L 90 L 89 L 04/19/18 10:15 04/19/18 10:31 04/19/18 10:45 Temperature Pulse Rate 87 91 H 93 H Respiratory Rate 19 17 19 Blood Pressure 109/51 L 109/65 107/55 L Pulse Oximetry 92 L 86 L 87 L 04/19/18 11:00 04/19/18 11:15 04/19/18 11:30 Temperature Pulse Rate 97 H 101 H 99 H Respiratory Rate 17 17 17 Blood Pressure 98/54 L 105/65 98/56 L Pulse Oximetry 85 L 81 L 84 L 04/19/18 12:00 Temperature 99.6 F Pulse Rate 97 H Respiratory Rate 13 Blood Pressure 101/46 L Pulse Oximetry 84 L Intake & Output 04/18/18 04/19/18 04/19/18 18:59 06:59 18:59 Intake Total 225 / 225 1100 / 1100 100 / 100 Output Total 0 / 0 400 / 400 1000 / 1000 Balance 225 / 225 700 / 700 -900 / -900 Weight 64 kg Intake: IV 225 / 225 1100 / 1100 100 / 100 D5W/Normal Saline Inj 1,000 ML 1000 / 1000 @ 42 mls/hr IV.CONT .[id number] [facility] Rx#:[id number] Cardizem Inj 125 MG In NS Inj 125 / 125 100 ML @ 2.5 MG/HR 2.5 mls/hr IV.CONT TITRATE PRN Rx#: [id number] Zosyn 2.25 GM Premix 50 ML @ 100 / 100 100 / 100 100 / 100 100 mls/hr IV.SIG Q6H [facility] Rx#: [id number] Oral 0 / 0 0 / 0 Output: Urine 0 / 0 0 / 0 Stool 0 / 0 Hemodialysis Amount 1000 / 1000 Gastric Drainage 400 / 400 Oral Orogastric Tube 400 / 400 Other: # Bowel Movements 0 - Constitutional no acute distress - Routine HEENT Exam Eye: Present: EOMI, PERRL ENT: Present: mucous membranes moist - Routine Neck Exam Absent: JVD - Routine Respiratory Exam Absent: accessory muscle use, respiratory distress - Routine Cardiovascular Exam Present: RRR - Routine Abdominal Exam Present: soft. Absent: tenderness - Routine Extremities Exam Present: AV fistula. Absent: cyanosis, edema - Routine Neurological Exam Absent: oriented X3 - Urinary Catheter Management Indwelling Urethral Catheter Cath placed during this visit: yes, but has since been removed by the nurse Reason for continuing: Hourly intake/output Insertion date: 04/14/18 Insertion time: 10:35 Removal date: 04/14/18 Removal time: 17:30 <Nehemiah Reyes - Last Filed: 04/19/18 16:06> Vital signs: Vital Signs 04/18/18 22:00 04/18/18 22:30 04/18/18 23:00 Temperature Pulse Rate 80 78 77 Respiratory Rate 21 18 20 Blood Pressure 112/55 L 114/60 94/53 L Pulse Oximetry 93 L 93 L 94 L 04/18/18 23:30 04/18/18 23:33 04/18/18 23:54 Temperature Pulse Rate 76 76 75 Respiratory Rate 16 23 21 Blood Pressure 82/50 L 130/56 L 127/56 L Pulse Oximetry 94 L 94 L 95 04/19/18 00:00 04/19/18 00:12 04/19/18 00:30 Temperature 98.6 F Pulse Rate 74 72 Respiratory Rate 21 22 22 Blood Pressure 119/55 L 107/54 L Pulse Oximetry 95 94 L 04/19/18 01:00 04/19/18 01:30 04/19/18 01:40 Temperature Pulse Rate 71 72 72 Respiratory Rate 19 20 20 Blood Pressure 103/49 L 80/44 L 83/47 L Pulse Oximetry 94 L 94 L 94 L 04/19/18 01:46 04/19/18 02:00 04/19/18 02:15 Temperature Pulse Rate 72 71 71 Respiratory Rate 18 19 20 Blood Pressure 126/58 L 113/53 L 108/44 L Pulse Oximetry 94 L 94 L 94 L 04/19/18 02:30 04/19/18 02:45 04/19/18 02:47 Temperature Pulse Rate 72 73 73 Respiratory Rate 18 19 17 Blood Pressure 87/47 L 90/42 L 96/46 L Pulse Oximetry 95 94 L 94 L 04/19/18 03:00 04/19/18 03:16 04/19/18 03:31 Temperature Pulse Rate 72 71 72 Respiratory Rate 19 19 17 Blood Pressure 99/47 L 121/55 L 155/66 H Pulse Oximetry 94 L 94 L 94 L 04/19/18 03:45 04/19/18 03:49 04/19/18 04:00 Temperature 98.9 F Pulse Rate 72 73 72 Respiratory Rate 16 19 16 Blood Pressure 96/55 L 99/50 L Pulse Oximetry 93 L 96 96 04/19/18 04:30 04/19/18 05:00 04/19/18 05:31 Temperature Pulse Rate 72 73 72 Respiratory Rate 17 13 19 Blood Pressure 103/51 L 105/58 L 140/63 Pulse Oximetry 96 95 94 L 04/19/18 06:00 04/19/18 06:30 04/19/18 07:00 Temperature Pulse Rate 73 73 71 Respiratory Rate 16 20 15 Blood Pressure 122/52 L 117/54 L 119/58 L Pulse Oximetry 96 96 94 L 04/19/18 07:30 04/19/18 07:39 04/19/18 08:00 Temperature 99.9 F H Pulse Rate 72 74 80 Respiratory Rate 18 16 15 Blood Pressure 107/56 L 86/50 L Pulse Oximetry 94 L 94 L 93 L 04/19/18 08:30 04/19/18 08:51 04/19/18 09:00 Temperature Pulse Rate 81 80 80 Respiratory Rate 17 16 15 Blood Pressure 82/44 L 134/71 Pulse Oximetry 95 93 L 94 L 04/19/18 09:01 04/19/18 09:15 04/19/18 09:30 Temperature Pulse Rate 81 82 85 Respiratory Rate 18 13 13 Blood Pressure 100/49 L 83/47 L 91/45 L Pulse Oximetry 94 L 96 93 L 04/19/18 09:46 04/19/18 10:00 04/19/18 10:15 Temperature Pulse Rate 86 86 87 Respiratory Rate 16 16 19 Blood Pressure 132/58 L 106/49 L 109/51 L Pulse Oximetry 90 L 89 L 92 L 04/19/18 10:31 04/19/18 10:45 04/19/18 11:00 Temperature Pulse Rate 91 H 93 H 97 H Respiratory Rate 17 19 17 Blood Pressure 109/65 107/55 L 98/54 L Pulse Oximetry 86 L 87 L 85 L 04/19/18 11:15 04/19/18 11:30 04/19/18 12:00 Temperature 99.6 F Pulse Rate 101 H 99 H 97 H Respiratory Rate 17 17 13 Blood Pressure 105/65 98/56 L 101/46 L Pulse Oximetry 81 L 84 L 84 L 04/19/18 13:00 04/19/18 14:00 04/19/18 15:00 Temperature Pulse Rate 99 H 99 H 101 H Respiratory Rate 21 15 16 Blood Pressure 94/38 L 96/65 L 89/51 L Pulse Oximetry 98 98 04/19/18 16:00 04/19/18 17:00 04/19/18 20:32 Temperature 99.3 F Pulse Rate 93 H 93 H Respiratory Rate 17 14 Blood Pressure 145/53 H Pulse Oximetry 92 L 83 L 100 Intake & Output 04/19/18 04/19/18 04/20/18 06:59 18:59 06:59 Intake Total 1100 / 1100 300 / 300 Output Total 400 / 400 1000 / 1000 Balance 700 / 700 -700 / -700 Weight 64 kg Intake: IV 1100 / 1100 100 / 100 D5W/Normal Saline Inj 1,000 ML 1000 / 1000 @ 42 mls/hr IV.CONT .[id number] [facility] Rx#:[id number] Zosyn 2.25 GM Premix 50 ML @ 100 / 100 100 / 100 100 mls/hr IV.SIG Q6H [facility] Rx#: [id number] Oral 0 / 0 Water Bolus Amount 200 / 200 Output: Urine 0 / 0 Hemodialysis Amount 1000 / 1000 Gastric Drainage 400 / 400 Oral Orogastric Tube 400 / 400 Other: Date of Last Bowel Movement 04/19/18 # Bowel Movements 0 1 - Urinary Catheter Management Indwelling Urethral Catheter Cath placed during this visit: no <Blake Michel - Last Filed: 04/19/18 21:59> Assessment and Plan - Assessment (1) ESRD (end stage renal disease) Code(s): N18.6 - End stage renal disease Status: Chronic Plan: Patient gets dialysis TTS. Patient dialyzed today. Potassium improved after dialysis. Monitor progress. L arm AVF, avoid blood pressure or blood draws in left arm. (2) Hyperkalemia Code(s): E87.5 - Hyperkalemia Status: Acute Plan: Resolved after dialysis. (3) Acute metabolic encephalopathy Code(s): G93.41 - Metabolic encephalopathy Status: Acute (4) Acute hypoxemic respiratory failure Code(s): J96.01 - Acute respiratory failure with hypoxia Status: Acute Plan: s/p extubation. On O2 nasal cannula (5) Septic shock Code(s): A41.9 - Sepsis, unspecified organism; R65.21 - Severe sepsis with septic shock Status: Resolved Plan: On broad-spectrum antibiotic. ID on the case. (6) Emphysematous cholecystitis Code(s): K81.0 - Acute cholecystitis Status: Acute Plan: Vascular surgery following <Nehemiah Reyes - Last Filed: 04/19/18 16:06> - Assessment (1) ESRD (end stage renal disease) Code(s): N18.6 - End stage renal disease Status: Chronic (2) Hyperkalemia Code(s): E87.5 - Hyperkalemia Status: Acute (3) Acute metabolic encephalopathy Code(s): G93.41 - Metabolic encephalopathy Status: Acute (4) Acute hypoxemic respiratory failure Code(s): J96.01 - Acute respiratory failure with hypoxia Status: Acute (5) Septic shock Code(s): A41.9 - Sepsis, unspecified organism; R65.21 - Severe sepsis with septic shock Status: Resolved (6) Emphysematous cholecystitis Code(s): K81.0 - Acute cholecystitis Status: Acute - Attending Attestation patient was seen and examined. Seen during dialysis, on 1K due to potassium level of 6.8 <Blake Michel - Last Filed: 04/19/18 21:59>
[2018-04-19] MEDS: fentaNYL Citrate Inj 100 MCG/2 ML Ampul IV.PUSH PRN (21:59)
[2018-04-19] MEDS ORDERED: Pantoprazole Inj 40 MG Vial IV.PUSH SCH (22:00)
[2018-04-19] MEDS ORDERED: Sod Chloride 0.9% Inj 1,000 ML IV.SIG SCH (22:00)
[2018-04-19 23:24] LABS: Hematocrit 22.6 % (35.0-46.0); Hemoglobin 7.4 gm/dL (11.6-15.3)
[2018-04-20] MEDS: fentaNYL Citrate Inj 100 MCG/2 ML Ampul IV.PUSH PRN ×2 (00:40→17:13)
[2018-04-20] MEDS: Oral Hygiene Kit OROPHARYNG SCH ×4 (00:42→18:00)
[2018-04-20] MEDS: Insulin NovoLOG Aspart Correctional Sugar Inj SQ SCH ×4 (00:42→18:02)
[2018-04-20] MEDS: Piperacil/Tazo 2.25 GM Premix 50 ML IV.SIG SCH ×4 (02:37→21:14)
[2018-04-20] MEDS: Dextrose 5%/NaCl 0.9% Inj 1,000 ML IV.CONT SCH (02:38)
[2018-04-20] MEDS: Artificial Tears Opth Drops 15 ML Bottle EACH EYE SCH ×3 (02:39→21:14)
--- NOTE | 2018-04-20 05:09 | XR ---
EXAM DATE: 04/20/2018 4:59 AM EST AGE/SEX: 72 years / Female INDICATIONS: Respiratory failure. CLINICAL DATA: This is the patient's subsequent encounter. Patient reports that signs and symptoms h ave been present for 1 week and indicates a pain score of Nonresponsive. MEDICAL/SURGICAL HISTORY: . Diabetes. Gastroesophageal reflux disease. Hypertension. End stage renal disease. Stroke. Non-responsive. COMPARISON: C, CHEST 1V SINGLE AP, 04/18/2018. . FINDINGS: The NG tube and right internal jugular central line appear well placed. The heart size is normal. The re is mild increased density at the medial right base. The left lung is grossly clear. CONCLUSION: Mild consolidation or atelectasis at the medial right base which appears to be improving. Electronically signed by: Antonio Vo MD Board Certified Radiologist 04/20/2018 5:07 AM EST
[2018-04-20 05:49] LABS: Baso # (Auto) 0.1 th/mm3 (0.0-0.2); Baso % (Auto) 0.8 % (0.0-2.0); Eos % (Auto) 0.2 % (0.0-4.0); Hematocrit 22.6 % (35.0-46.0); Hemoglobin 7.6 gm/dL (11.6-15.3); Lymph # (Auto) 1.5 th/mm3 (1.0-4.8); Lymph % (Auto) 15.1 % (9.0-44.0); Mean Corpuscular HGB Conc 33.4 % (32.0-36.0); Mean Corpuscular Hemoglobin 32.9 pg (27.0-34.0); Mean Corpuscular Volume 98.7 fL (80.0-100.0); Mean Platelet Volume 9.5 fL (7.0-11.0); Mono # (Auto) 1.2 th/mm3 (0.0-0.9); Mono % (Auto) 12.4 % (0.0-8.0); Neut # (Auto) 7.1 th/mm3 (1.8-7.7); Neut % (Auto) 71.5 % (16.0-70.0); Platelet Count 230 th/mm3 (150-450); Red Blood Count 2.29 mil/mm3 (4.00-5.30); White Blood Count 9.9 th/mm3 (4.0-11.0)
[2018-04-20 06:20] LABS: Alanine Aminotransferase 168 U/L (10-53); Albumin 2.2 g/dL (3.4-5.0); Alkaline Phosphatase 115 U/L (45-117); Anion Gap 13 meq/L (5-15); Aspartate Aminotransferase 66 U/L (15-37); Blood Urea Nitrogen 71 mg/dL (7-18); Calcium 7.6 mg/dL (8.5-10.1); Chloride 104 meq/L (98-107); Glomerular Filtration Rate 7 mL/min (>89); Glucose,Random 173 mg/dL (74-106); Magnesium 2.1 mg/dL (1.5-2.5); Phosphorus 7.1 mg/dL (2.5-4.9); Sodium 146 meq/L (136-145); Total Protein 7.2 g/dL (6.4-8.2)
[2018-04-20 07:12] LABS: Lymphocytes 16 % (9-44); Metamyelocytes 2 % (0-1); Monocytes 9 % (0-8); Myelocytes 1 % (0-0); Platelet Estimate Normal (Normal); Platelet Morphology Normal (Normal)
--- NOTE | 2018-04-20 07:38 | P.PNCC ---
Subjective Subjective Remarks/Hospital Course: Patient is a 72-year-old female with past medical history significant for previous strokes, TIA, end-stage renal disease on hemodialysis (Monday, Monday schedule), Left AV fistula on 01/2018, type 2 diabetes, and hypertension. EMS was called as her roommate found her unresponsive last seen normal yesterday night. IV 0.4 mg of Narcan was given without any response. Patient was intubated in the emergency department for airway protection, for a GCS 8. Lab work showed leukocytosis of 12,500 with a left shift of 90% neutrophilia, 29% bands. Lactic acid came back at 6. CMP showed potassium of 6.0 bicarb of 16.7, anion gap of 24, liver enzymes were markedly elevated AST 1992 ALT 758, CPK 475, troponin 5.21. EKG did not show any evidence of acute ST elevation. ABG shows pH of 7.19 PCO2 of 48 PaO2 of [address] abdomen pelvis showed distended gallbladder with cholelithiasis, also small amount of air in the fundus of the gallbladder. Critical care medicine was consulted for admission. I evaluated the patient in the emergency department. She is acutely ill critical appearing. Intermittently hypotensive. Dr. Vargas has placed a left subclavian central line. I will start Levophed if needed. Patient received Zosyn and Flagyl in the ED. I will place patient on vancomycin and Zosyn renally dosed. Pierre cultures have been sent. With the CT finding I contacted Dr. Cortes who requested stat ultrasound of the right upper quadrant. Also ID was consulted and I discussed with Dr. Montaño. Patient has healed scars probably few week old laparoscopic abdominal surgery, it is unclear what kind of surgery she had. Dr. Fermin consulted for an STEMI. Nephrology Dr. Gillette consulted for emergent hemodialysis 04/15 -T-max 101. Remains on broad-spectrum antibiotics. Noted cool left fingers not cyanotic but will check fistula Doppler and arterial Dopplers and venous Doppler left upper extremity. Central line placed left subclavian noted. 04/16: T-max 100.5. MRCP pending. Right upper lower extremity and left lower extremity remains warm. Cool left upper extremity. Has seen Dr. Wu for her left AV fistula in the past. Positive dopplerable/patent left AV fistula noted by Doppler 04/15. Downward trending liver function test. 04/17: Afebrile. Patient received 2 doses of digoxin due to A. fib with RVR. Currently normal sinus rhythm. Hypoglycemic overnight requiring D5 normal saline currently at 42 cc an hour. Off all vasopressors. Remains in normal sinus rhythm. Cardiology recommended IV diltiazem for paroxysmal atrial fibrillation. Will order. MRCP result results noted. 04/18: Afebrile. Patient extubated yesterday without complication. Currently resting on simple mask playing of pain but unknown source. Noted vascular surgery's note. 04/19: Afebrile. Remains on nasal cannula. More alert and interactive today. Will start tube feeds today. Speech evaluation for swallowing. Currently afebrile. No bowel movement. Subjective 04/20: Overnight, patient with several bright red problems per rectum. Continues to start on IV pantoprazole twice daily. Hemoglobin currently 7.4. Transfusing 2 units PRBCs now and sent for stat nuclear medicine bleeding scan. Patient appears to be hemodynamically stable but is very pale. Was plan for ligation of the left upper extremity AV fistula by vascular surgery but this will be placed on hold. Continues to moan in the room. Objective Vital Signs / I&O: Vital Signs 04/19/18 07:39 04/19/18 08:00 04/19/18 08:30 Temperature 99.9 F H Pulse Rate 74 80 81 Respiratory Rate 16 15 17 Blood Pressure 86/50 L 82/44 L Pulse Oximetry 94 L 93 L 95 04/19/18 08:51 04/19/18 09:00 04/19/18 09:01 Temperature Pulse Rate 80 80 81 Respiratory Rate 16 15 18 Blood Pressure 134/71 100/49 L Pulse Oximetry 93 L 94 L 94 L 04/19/18 09:15 04/19/18 09:30 04/19/18 09:46 Temperature Pulse Rate 82 85 86 Respiratory Rate 13 13 16 Blood Pressure 83/47 L 91/45 L 132/58 L Pulse Oximetry 96 93 L 90 L 04/19/18 10:00 04/19/18 10:15 04/19/18 10:31 Temperature Pulse Rate 86 87 91 H Respiratory Rate 16 19 17 Blood Pressure 106/49 L 109/51 L 109/65 Pulse Oximetry 89 L 92 L 86 L 04/19/18 10:45 04/19/18 11:00 04/19/18 11:15 Temperature Pulse Rate 93 H 97 H 101 H Respiratory Rate 19 17 17 Blood Pressure 107/55 L 98/54 L 105/65 Pulse Oximetry 87 L 85 L 81 L 04/19/18 11:30 04/19/18 12:00 04/19/18 13:00 Temperature 99.6 F Pulse Rate 99 H 97 H 99 H Respiratory Rate 17 13 21 Blood Pressure 98/56 L 101/46 L 94/38 L Pulse Oximetry 84 L 84 L 04/19/18 14:00 04/19/18 15:00 04/19/18 16:00 Temperature 99.3 F Pulse Rate 99 H 101 H 93 H Respiratory Rate 15 16 17 Blood Pressure 96/65 L 89/51 L Pulse Oximetry 98 98 92 L 04/19/18 17:00 04/19/18 17:45 04/19/18 18:00 Temperature Pulse Rate 93 H 93 H 92 H Respiratory Rate 14 12 15 Blood Pressure 145/53 H 113/77 103/46 L Pulse Oximetry 83 L 100 04/19/18 19:00 04/19/18 20:00 04/19/18 20:32 Temperature 97.7 F Pulse Rate 93 H 95 H Respiratory Rate 11 L 12 Blood Pressure 89/52 L 80/57 L Pulse Oximetry 90 L 96 100 04/19/18 20:58 04/19/18 21:00 04/19/18 21:30 Temperature Pulse Rate 95 H 95 H 88 Respiratory Rate 12 13 12 Blood Pressure 88/50 L 86/53 L 84/50 L Pulse Oximetry 96 91 L 99 04/19/18 21:33 04/19/18 21:52 04/19/18 22:00 Temperature Pulse Rate 91 H 92 H 90 Respiratory Rate 16 15 15 Blood Pressure 186/84 H 187/90 H Pulse Oximetry 99 100 99 04/19/18 22:52 04/19/18 22:53 04/19/18 23:00 Temperature Pulse Rate 92 H 91 H 91 H Respiratory Rate 15 11 L 14 Blood Pressure 190/92 H 191/93 H Pulse Oximetry 99 98 100 04/19/18 23:01 04/20/18 00:00 04/20/18 00:01 Temperature Pulse Rate 94 H 89 93 H Respiratory Rate 11 L 21 18 Blood Pressure 245/192 H 256/144 H 256/144 H Pulse Oximetry 100 99 99 04/20/18 01:00 04/20/18 01:02 04/20/18 02:00 Temperature Pulse Rate 89 91 H 85 Respiratory Rate 14 19 17 Blood Pressure 132/59 L Pulse Oximetry 99 100 100 04/20/18 02:07 04/20/18 03:00 04/20/18 04:00 Temperature Pulse Rate 85 89 89 Respiratory Rate 18 13 12 Blood Pressure 130/60 147/57 H 155/95 H Pulse Oximetry 99 99 95 04/20/18 05:00 Temperature Pulse Rate 86 Respiratory Rate 15 Blood Pressure 163/64 H Pulse Oximetry 99 Intake & Output 04/19/18 04/20/18 04/20/18 18:59 06:59 18:59 Intake Total 300 / 300 1330 / 1330 Output Total 1000 / 1000 0 / 0 Balance -700 / -700 1330 / 1330 Weight 66.8 kg Intake: IV 100 / 100 1100 / 1100 D5W/Normal Saline Inj 1,000 ML 1000 / 1000 @ 42 mls/hr IV.CONT .[id number] [facility] Rx#:[id number] Zosyn 2.25 GM Premix 50 ML @ 100 / 100 100 / 100 100 mls/hr IV.SIG Q6H [facility] Rx#: [id number] Tube Feeding 30 / 30 Water Bolus Amount 200 / 200 200 / 200 Output: Urine 0 / 0 Hemodialysis Amount 1000 / 1000 Other: Date of Last Bowel Movement 04/19/18 04/20/18 # Bowel Movements 1 2 Result Diagrams: 04/20/18 04:35 04/20/18 04:35 Other Results: Microbiology 04/15/18 13:55 Blood - Peripheral Aerobic Blood Culture - Preliminary No growth in 4 days 04/15/18 13:55 Blood - Peripheral Anaerobic Blood Culture - Preliminary No growth in 4 days 04/15/18 11:30 Blood - Line Aerobic Blood Culture - Preliminary No growth in 4 days 04/15/18 11:30 Blood - Line Anaerobic Blood Culture - Preliminary No growth in 4 days 04/14/18 10:20 Blood - Peripheral Aerobic Blood Culture - Final No growth in 5 days 04/14/18 10:20 Blood - Peripheral Anaerobic Blood Culture - Final No growth in 5 days 04/14/18 10:25 Blood - Peripheral Aerobic Blood Culture - Final No growth in 5 days 04/14/18 10:25 Blood - Peripheral Anaerobic Blood Culture - Final No growth in 5 days 04/14/18 15:15 Sputum - Endotracheal Gram Stain - Final 04/14/18 15:15 Sputum - Endotracheal Sputum Culture - Final Heavy growth normal respiratory black 04/14/18 10:35 Clean Catch Urine Urine Culture - Final No growth in 48 hours Imaging: Chest X-Ray 04/14/18 09:44 CONCLUSION: Satisfactory position of supporting devices Interval placement of bilateral central venous catheters without evidence of pneumothorax. Cardiomegaly with out evidence of acute airspace disease or significant pulmonary edema. Head CT 04/14/18 09:44 CONCLUSION: 1. 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 2. No evidence of acute infarct, hemorrhage, mass or edema. 3. No significant change compared to 04/12/2017. . Abdomen/Pelvis CT 04/14/18 10:59 CONCLUSION: 1. Distended gallbladder with cholelithiasis and minimal gas in the fundus. There is no significant pericholecystic fluid or inflammation. 2. Simple left renal cyst. 3. Bibasilar airspace disease. Liver Ultrasound 04/14/18 12:44 CONCLUSION: 1. Gallbladder contains sludge and stones. However, no additional findings are present to definitively indicate acute cholecystitis. 2. Common bile duct is enlarged but contains no visible stone. Given the pain one could consider MRCP for further evaluation of the common duct stone as a cause for the duct dilatation in right upper quadrant pain. 3. Atrophic right kidney with changes suggesting chronic medical renal disease. There is a complex cystic lesion in the mid kidney and renal sinus measuring up to 3.5 cm. At some point ideally be further characterized with renal protocol MRI with and without intravenous contrast. This should be performed on an elective basis when condition permits. Extremity Arterial Study 04/15/18 00:00 CONCLUSION: 1. Significantly limited examination due to unobtainable pressures in the forearms bilaterally. 2. Unobtainable pressures and absence of waveforms in the left hand. Cannot exclude steal from patient's left upper extremity brachiobasilic fistula. Upper Extremity Ultrasound 04/15/18 00:00 CONCLUSION: Patent left AV fistula. Venous Doppler Study 04/15/18 00:00 CONCLUSION: No evidence of DVT. Chest X-Ray 04/16/18 06:00 CONCLUSION: No significant interval change. No acute cardiopulmonary disease identified. Cholangiopancreatography MRI 04/16/18 07:10 CONCLUSION: 1. Cholelithiasis with multiple small gallstones layering dependently. There is no gallbladder wall thickening or inflammatory change. No gas is visualized on the MRI. 2. Common bile duct measuring up to 1 cm with no filling defects or mass. This could represent distal obstruction or prior passage of stones. 3. Multiple benign-appearing small cystic structures in the pancreas. 4. Bilateral simple renal cysts as well as a more complex right parapelvic cyst. Chest X-Ray 04/17/18 06:00 CONCLUSION: Minimal right lung base opacity. Chest X-Ray 04/18/18 06:00 CONCLUSION: 1. Endotracheal tube no longer seen. 2. Minimal right lung base opacity unchanged. Chest X-Ray 04/20/18 06:00 CONCLUSION: Mild consolidation or atelectasis at the medial right base which appears to be improving. Objective Remarks: GENERAL: 72-year-old female currently on nasal cannula appears in no acute distress SKIN: Warm and dry with the exception of cool peripheral fingers left upper extremity dopplerable pulses. She is pale this morning HEAD: Atraumatic. Normocephalic. EYES: Pupils equal and round about 2 mm bilaterally and reactive. No scleral icterus. No injection or drainage. ENT: No nasal bleeding or discharge. Mucous membranes pink and moist. NECK: Trachea midline. No JVD. CARDIOVASCULAR: Regular rate and rhythm. S1, S2. No S4. No appreciable murmur RESPIRATORY: Few fine crackles appreciated bilaterally anteriorly posteriorly. No wheezing GASTROINTESTINAL: Abdomen soft, slight right upper quadrant-tender, nondistended. Hepatic and splenic margins not palpable. Hypoactive bowel sounds appreciated. MUSCULOSKELETAL: Extremities without clubbing, cyanosis, or edema. Left AV fistula positive thrill. Patient has a tunneled right IJ Hemovac catheter NEUROLOGICAL: Currently arousable and follows commands. Weak left upper extremity compared to the right. Moaning. Assessment and Plan - Problem List (1) Acute metabolic encephalopathy Code(s): G93.41 - Metabolic encephalopathy Status: Acute (2) Acute hypoxemic respiratory failure Code(s): J96.01 - Acute respiratory failure with hypoxia Status: Acute (3) Septic shock Code(s): A41.9 - Sepsis, unspecified organism; R65.21 - Severe sepsis with septic shock Status: Resolved (4) Lactic acidosis Code(s): E87.2 - Acidosis Status: Acute (5) Non-ST elevated myocardial infarction (non-STEMI) Code(s): I21.4 - Non-ST elevation (NSTEMI) myocardial infarction Status: Acute (6) UTI (urinary tract infection) Code(s): N39.0 - Urinary tract infection, site not specified Status: Acute (7) Liver enzyme elevation Code(s): R74.8 - Abnormal levels of other serum enzymes Status: Acute (8) Emphysematous cholecystitis Code(s): K81.0 - Acute cholecystitis Status: Acute (9) Hyperkalemia Code(s): E87.5 - Hyperkalemia Status: Acute (10) ESRD (end stage renal disease) Code(s): N18.6 - End stage renal disease Status: Chronic (11) HTN (hypertension) Code(s): I10 - Essential (primary) hypertension Status: Chronic (12) Diabetes Code(s): E11.9 - Type 2 diabetes mellitus without complications Status: Chronic (13) GERD (gastroesophageal reflux disease) Code(s): K21.9 - Gastro-esophageal reflux disease without esophagitis Status: Chronic (14) Stroke Code(s): I63.9 - Cerebral infarction, unspecified Status: Chronic (15) TIA (transient ischemic attack) Code(s): G45.9 - Transient cerebral ischemic attack, unspecified Status: Chronic - Assessment and Plan Plan: NEURO/PSYCH: Acute metabolic encephalopathy Old small bilateral cerebellar infarcts. -Encephalopathy seems to be metabolic secondary to severe sepsis -CT of the head shows old bilateral cerebellar strokes, and nothing acute. -As needed fentanyl 25 mg every 3 hours as needed pain RESP: Acute hypoxemic respiratory failure -Intubated in the emergency department for lack of airway protection and hypoxia -Extubated 04/17 -Simple mask/nasal cannula maintain saturations greater than equal to 90%. Wean as tolerated -albuterol/ipratropium aerosols every 4 hours with albuterol aerosols every 2 hours as needed -Incentive spirometry while -Head of bed at 30 degrees -Chest x-ray in a.m. 04/20 CV: NSTEMI likely type II Paroxysmal atrial fibrillation with 2 1 AV conduction Hypotension Lactic acidosis History of hypertension -Continue aspirin 81 mg daily -Cardiology Dr. Fermin consulted NSTEMI most likely type II from sepsis -Avoid IV heparin due to markedly elevated liver enzymes, possible need of surgical intervention -Hold all home antihypertensives (hold nifedipine, clonidine, hydralazine and Lasix) -Cardiology recommended diltiazem 30 mg 4 times daily and carvedilol 3.125 mg twice daily -2d echocardiogram revealed normal left ventricular size. EF 65-70%. Left lipomatous atrial septum,. Trace MR/TR GI: Markedly elevated liver enzymes Probable emphysematous cholecystitis History of GERD -N.p.o Per GI., I -V pantoprazole drip after 80 mg bolus 80 mg L will be started -Holding Nepro at 40 cc an hour goal. -Speech eval for swallow.-Failed 04/19 -CT abdomen pelvis shows small amount of air in the fundus of the gallbladder, this is concerning for emphysematous cholecystitis given clinical picture -Stat consult to general surgery and discussed with Dr. Cortes. Recommended conservative therapy at the present time. -Dr. Cortes/general surgery and gastroenterology signed off MRCP -04/16 - cholelithiasis with multiple small gallstones layering dependently. There is no gallbladder wall thickening or inflammatory change. No gas is visualized on the MRI. Common bile duct measuring up to 1 cm with no filling defects or mass. This could represent distal obstruction or prior passage of stones. Multiple benign-appearing small cystic structures in the pancreas. Bilateral simple renal cysts as well as a more complex right parapelvic cyst. -Possible ERCP. LFTs very slowly trending downward -GI signed off. Reconsult with lower GI bleed -With bright red blood per rectum we will nuclear medicine bleeding scan stat Renal/: End-stage renal disease -Monitor renal function closely. -Dr. Gillette consulted for emergent hemodialysis on 04/14. Per his schedule he was last dialyzed 04/19 -Monitor urine output accurate I's and O's ID: Septic shock Probable emphysematous cholecystitis Possible UTI -Antibiotics with piperacillin/tazobactam. Discontinued vancomycin 04/16 -Infectious disease continues to follow and general surgery consulted. -Follow-up blood urine and sputum cultures no growth to date HEME: Normocytic anemia Leukocytosis -Monitor CBC, coags. Check coags now -Receiving 2 units PRBCs now. Recheck every 6 hours hemoglobins. ENDO/FEN: Hyperphosphatemia Type 2 diabetes -Sliding scale insulin -Currently D5 normal saline at 42 cc hours with hypoglycemic episode MSK Cyanosis left upper extremity Followed by Dr. Feezor. Mcgu[place]ford ligation today 04/20 but on hold due to lower GI bleed PROPH: -Bilateral lower extremity SCDs. Heparin sq/omeprazole LINES: -Utilize peripheral IVs, left subclavian central line day #5 with left femoral arterial line day #3 both discontinued 04/18 Level 3 follow-up (6) UTI (urinary tract infection) Qualifiers: Urinary tract infection type: site unspecified Hematuria presence: without hematuria Qualified Code(s): N39.0 - Urinary tract infection, site not specified (11) HTN (hypertension) Qualifiers: Hypertension type: unspecified Qualified Code(s): I10 - Essential (primary) hypertension (12) Diabetes Qualifiers: Diabetes mellitus type: other specified (including YOVANI) Diabetes mellitus termite renewal 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
[2018-04-20 07:56] LABS: Activated Partial Thrombo Time 35.6 sec (23.4-31.7); INR 1.3 Ratio; Prothrombin Time 13.5 sec (9.8-11.6)
[2018-04-20 08:13] LABS: Mean Corpuscular HGB Conc 32.3 % (32.0-36.0); Mean Platelet Volume 9.3 fL (7.0-11.0); Platelet Count 225 th/mm3 (150-450); Red Blood Count 2.07 mil/mm3 (4.00-5.30); White Blood Count 10.2 th/mm3 (4.0-11.0)
[2018-04-20 08:17] LABS: Hematocrit 21.1 % (35.0-46.0); Hemoglobin 6.8 gm/dL (11.6-15.3)
--- NOTE | 2018-04-20 08:30 | P.PNID ---
Subjective Remarks: ID Coverage is a 72 y/o WF with PMHx of CKD s/p attempt at PD catheter placement due to non compliance, also Left Brachiocephalic AV fistula on 2017 by . Patient was reportedly found with decreased level of consciousness. Room mates do not know much about her medical history and reportedly seen her normal the night prior. Per records EMS gave her Narcan and there was improvement noted. No family nos on chart and old records could not be assessed. Patients past medical records from prior visits could not be accessed by me but patient has CKD and prior Bradycardia on prior admit. Also patient has a history of stroke diabetes hypertension GERD. On admission she had leukocytosis of 12,000 with a left shift. Metabolic acidosis on ABG. Lactic acid 6.Troponins elevated. Cr at 9.6. Normal lipase, LFTs in thousands. CT with air concerning for emphysematous cholecystitis. At the time of my evaluation patient is in IMC, not on pressors, has received fluid bolus amount not documented per RN. She is currently intubated, not sedated, opens eyes, does not follow commands for me. No obvious focal deficit. ID consulted for evaluation and Mment of Severe Sepsis, possible acute cholecystitis. Notes reviewed D/W RN Problems with BRBPR last night Hgb down to 6 For stat nuclear scan Constant moaning Confused Temps ok BP ok LUE bluish discoloration of fingers. Cool clammy fingers L hand. Antibiotics: zosyn IV Lines: Line sites ok Past Medical History: reviewed Allergies/Adverse Reactions: Allergies No Known Allergies Allergy (Verified 01/22/18 10:23) Objective Vital Signs 04/19/18 08:30 04/19/18 08:51 04/19/18 09:00 Temperature Pulse Rate 81 80 80 Respiratory Rate 17 16 15 Blood Pressure 82/44 L 134/71 Pulse Oximetry 95 93 L 94 L 04/19/18 09:01 04/19/18 09:15 04/19/18 09:30 Temperature Pulse Rate 81 82 85 Respiratory Rate 18 13 13 Blood Pressure 100/49 L 83/47 L 91/45 L Pulse Oximetry 94 L 96 93 L 04/19/18 09:46 04/19/18 10:00 04/19/18 10:15 Temperature Pulse Rate 86 86 87 Respiratory Rate 16 16 19 Blood Pressure 132/58 L 106/49 L 109/51 L Pulse Oximetry 90 L 89 L 92 L 04/19/18 10:31 04/19/18 10:45 04/19/18 11:00 Temperature Pulse Rate 91 H 93 H 97 H Respiratory Rate 17 19 17 Blood Pressure 109/65 107/55 L 98/54 L Pulse Oximetry 86 L 87 L 85 L 04/19/18 11:15 04/19/18 11:30 04/19/18 12:00 Temperature 99.6 F Pulse Rate 101 H 99 H 97 H Respiratory Rate 17 17 13 Blood Pressure 105/65 98/56 L 101/46 L Pulse Oximetry 81 L 84 L 84 L 04/19/18 13:00 04/19/18 14:00 04/19/18 15:00 Temperature Pulse Rate 99 H 99 H 101 H Respiratory Rate 21 15 16 Blood Pressure 94/38 L 96/65 L 89/51 L Pulse Oximetry 98 98 04/19/18 16:00 04/19/18 17:00 04/19/18 17:45 Temperature 99.3 F Pulse Rate 93 H 93 H 93 H Respiratory Rate 17 14 12 Blood Pressure 145/53 H 113/77 Pulse Oximetry 92 L 83 L 04/19/18 18:00 04/19/18 19:00 04/19/18 20:00 Temperature 97.7 F Pulse Rate 92 H 93 H 95 H Respiratory Rate 15 11 L 12 Blood Pressure 103/46 L 89/52 L 80/57 L Pulse Oximetry 100 90 L 96 04/19/18 20:32 04/19/18 20:58 04/19/18 21:00 Temperature Pulse Rate 95 H 95 H Respiratory Rate 12 13 Blood Pressure 88/50 L 86/53 L Pulse Oximetry 100 96 91 L 04/19/18 21:30 04/19/18 21:33 04/19/18 21:52 Temperature Pulse Rate 88 91 H 92 H Respiratory Rate 12 16 15 Blood Pressure 84/50 L 186/84 H 187/90 H Pulse Oximetry 99 99 100 04/19/18 22:00 04/19/18 22:52 04/19/18 22:53 Temperature Pulse Rate 90 92 H 91 H Respiratory Rate 15 15 11 L Blood Pressure 190/92 H 191/93 H Pulse Oximetry 99 99 98 04/19/18 23:00 04/19/18 23:01 04/20/18 00:00 Temperature Pulse Rate 91 H 94 H 89 Respiratory Rate 14 11 L 21 Blood Pressure 245/192 H 256/144 H Pulse Oximetry 100 100 99 04/20/18 00:01 04/20/18 01:00 04/20/18 01:02 Temperature Pulse Rate 93 H 89 91 H Respiratory Rate 18 14 19 Blood Pressure 256/144 H 132/59 L Pulse Oximetry 99 99 100 04/20/18 02:00 04/20/18 02:07 04/20/18 03:00 Temperature Pulse Rate 85 85 89 Respiratory Rate 17 18 13 Blood Pressure 130/60 147/57 H Pulse Oximetry 100 99 99 04/20/18 04:00 04/20/18 05:00 04/20/18 08:14 Temperature Pulse Rate 89 86 Respiratory Rate 12 15 Blood Pressure 155/95 H 163/64 H Pulse Oximetry 95 99 96 04/20/18 08:23 Temperature Pulse Rate 86 Respiratory Rate 24 Blood Pressure Pulse Oximetry Intake & Output 04/19/18 04/20/18 04/20/18 18:59 06:59 18:59 Intake Total 300 / 300 1330 / 1330 Output Total 1000 / 1000 0 / 0 Balance -700 / -700 1330 / 1330 Weight 66.8 kg Intake: IV 100 / 100 1100 / 1100 D5W/Normal Saline Inj 1,000 ML 1000 / 1000 @ 42 mls/hr IV.CONT .[id number] [facility] Rx#:[id number] Zosyn 2.25 GM Premix 50 ML @ 100 / 100 100 / 100 100 mls/hr IV.SIG Q6H [facility] Rx#: [id number] Tube Feeding 30 / 30 Water Bolus Amount 200 / 200 200 / 200 Output: Urine 0 / 0 Hemodialysis Amount 1000 / 1000 Other: Date of Last Bowel Movement 04/19/18 04/20/18 # Bowel Movements 1 2 04/15/18 13:55 Blood - Peripheral Aerobic Blood Culture - Preliminary No growth in 4 days 04/15/18 13:55 Blood - Peripheral Anaerobic Blood Culture - Preliminary No growth in 4 days 04/15/18 11:30 Blood - Line Aerobic Blood Culture - Preliminary No growth in 4 days 04/15/18 11:30 Blood - Line Anaerobic Blood Culture - Preliminary No growth in 4 days 04/14/18 10:20 Blood - Peripheral Aerobic Blood Culture - Final No growth in 5 days 04/14/18 10:20 Blood - Peripheral Anaerobic Blood Culture - Final No growth in 5 days 04/14/18 10:25 Blood - Peripheral Aerobic Blood Culture - Final No growth in 5 days 04/14/18 10:25 Blood - Peripheral Anaerobic Blood Culture - Final No growth in 5 days Lab - Hematology Results 04/19/18 04/19/18 04/20/18 04:18 22:31 04:35 WBC 11.2 H 9.9 RBC 2.46 L 2.29 L Hgb 8.1 L 7.4 L 7.6 L Hct 24.5 L 22.6 L 22.6 L MCV 99.7 98.7 MCH 32.8 32.9 MCHC 33.0 33.4 RDW 19.0 H 19.0 H Plt Count 220 230 MPV 9.9 9.5 Prelim Diff (Auto) Slide review pending Slide review pending Neut % (Auto) 71.0 H 71.5 H Lymph % (Auto) 13.1 15.1 [place] % (Auto) 14.1 H 12.4 H Eos % (Auto) 1.0 0.2 Baso % (Auto) 0.8 0.8 Neut # (Auto) 8.0 H 7.1 Lymph # (Auto) 1.5 1.5 [place] # (Auto) 1.6 H 1.2 H Eos # (Auto) 0.1 0.0 Baso # (Auto) 0.1 0.1 WBC Differential . Manual diff final Diff Scan Auto diff confirmed Seg Neuts % (Manual) 62 Band Neuts % (Manual) 9 H Lymphocytes % (Manual) 16 Monocytes % (Manual) 9 H Basophils % (Manual) 1 Metamyelocytes % (Man) 2 H Myelocytes % (Man) 1 H Abs Neuts (Manual) 7.3 Differential Comment . . Platelet Estimate Normal Platelet Morphology Normal 04/20/18 07:28 WBC 10.2 RBC 2.07 L Hgb 6.8 L* Hct 21.1 L MCV 102.0 H MCH 33.0 MCHC 32.3 RDW 19.0 H Plt Count 225 MPV 9.3 Prelim Diff (Auto) Neut % (Auto) Lymph % (Auto) [place] % (Auto) Eos % (Auto) Baso % (Auto) Neut # (Auto) Lymph # (Auto) [place] # (Auto) Eos # (Auto) Baso # (Auto) WBC Differential Diff Scan Seg Neuts % (Manual) Band Neuts % (Manual) Lymphocytes % (Manual) Monocytes % (Manual) Basophils % (Manual) Metamyelocytes % (Man) Myelocytes % (Man) Abs Neuts (Manual) Differential Comment Platelet Estimate Platelet Morphology Lab - Chemistry Results 04/18/18 04/18/18 04/18/18 11:19 17:19 23:17 Sodium Potassium Chloride Carbon Dioxide Anion Gap BUN Creatinine Estimated GFR POC Glucose 151 H 144 H 155 H Random Glucose Calcium Phosphorus Magnesium Total Bilirubin AST ALT Alkaline Phosphatase Total Protein Albumin 04/19/18 04/19/18 04/19/18 04:18 05:17 11:09 Sodium 143 Potassium 6.8 H* D Chloride 104 Carbon Dioxide 25.0 Anion Gap 14 BUN 79 H Creatinine 8.21 H Estimated GFR 5 L POC Glucose 153 H 140 H Random Glucose 143 H Calcium 7.8 L D Phosphorus 10.5 H D Magnesium 2.5 Total Bilirubin 1.1 H AST 96 H ALT 261 H Alkaline Phosphatase 98 Total Protein 7.3 Albumin 2.2 L 04/19/18 04/19/18 04/20/18 12:51 17:07 00:39 Sodium Potassium 3.5 D Chloride Carbon Dioxide Anion Gap BUN Creatinine Estimated GFR POC Glucose 150 H 177 H Random Glucose Calcium Phosphorus Magnesium Total Bilirubin AST ALT Alkaline Phosphatase Total Protein Albumin 04/20/18 04/20/18 04:35 07:50 Sodium 146 H Potassium 4.0 Chloride 104 Carbon Dioxide 29.0 Anion Gap 13 BUN 71 H Creatinine 5.70 H Estimated GFR 7 L POC Glucose 184 H Random Glucose 173 H Calcium 7.6 L Phosphorus 7.1 H D Magnesium 2.1 Total Bilirubin 1.0 AST 66 H ALT 168 H Alkaline Phosphatase 115 Total Protein 7.2 Albumin 2.2 L Imaging: ITS Impressions Head CT 04/14/18 09:44 CONCLUSION: 1. 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 2. No evidence of acute infarct, hemorrhage, mass or edema. 3. No significant change compared to 04/12/2017. . Abdomen/Pelvis CT 04/14/18 10:59 CONCLUSION: 1. Distended gallbladder with cholelithiasis and minimal gas in the fundus. There is no significant pericholecystic fluid or inflammation. 2. Simple left renal cyst. 3. Bibasilar airspace disease. Liver Ultrasound 04/14/18 12:44 CONCLUSION: 1. Gallbladder contains sludge and stones. However, no additional findings are present to definitively indicate acute cholecystitis. 2. Common bile duct is enlarged but contains no visible stone. Given the pain one could consider MRCP for further evaluation of the common duct stone as a cause for the duct dilatation in right upper quadrant pain. 3. Atrophic right kidney with changes suggesting chronic medical renal disease. There is a complex cystic lesion in the mid kidney and renal sinus measuring up to 3.5 cm. At some point ideally be further characterized with renal protocol MRI with and without intravenous contrast. This should be performed on an elective basis when condition permits. Extremity Arterial Study 04/15/18 00:00 CONCLUSION: 1. Significantly limited examination due to unobtainable pressures in the forearms bilaterally. 2. Unobtainable pressures and absence of waveforms in the left hand. Cannot exclude steal from patient's left upper extremity brachiobasilic fistula. Upper Extremity Ultrasound 04/15/18 00:00 CONCLUSION: Patent left AV fistula. Venous Doppler Study 04/15/18 00:00 CONCLUSION: No evidence of DVT. Cholangiopancreatography MRI 04/16/18 07:10 CONCLUSION: 1. Cholelithiasis with multiple small gallstones layering dependently. There is no gallbladder wall thickening or inflammatory change. No gas is visualized on the MRI. 2. Common bile duct measuring up to 1 cm with no filling defects or mass. This could represent distal obstruction or prior passage of stones. 3. Multiple benign-appearing small cystic structures in the pancreas. 4. Bilateral simple renal cysts as well as a more complex right parapelvic cyst. Chest X-Ray 04/20/18 06:00 CONCLUSION: Mild consolidation or atelectasis at the medial right base which appears to be improving. Physical Exam: GENERAL: Awake, responding, NAD SKIN: Cool and dry, no generalized rash HEAD: Atraumatic. Normocephalic. No temporal or scalp tenderness. EYES: Pupils equal round and reactive. Scleral icterus. No injection or drainage. No petechia ENT: Dry oral mucosa NECK: Trachea midline. Supple, nontender, no meningeal signs. CARDIOVASCULAR: HS audible. RESPIRATORY: Air entry equal bilaterally. Decreased BS at bases GASTROINTESTINAL: Abdomen soft, not distended, diffuse tenderness, no guarding MUSCULOSKELETAL: Lower Extremities with no evidence of infection. Left AV fistula site ok. Left fingers bluish hue, cold clammy. NEUROLOGICAL: Awake, following commands Psych: cooperative IV line sites ok. HD cath Assessment and Plan - Plan Severe Sepsis Probable acute emphysematous cholecystitis (CT findings and RUQ tenderness) CKD Attempted PD catheter placement in 01/2018. AV fistula LUE placed on 01/22/2018. Cyanosis L hand, ?steal syndrome - being evaluated GIB Acute metabolic encephalopathy: sepsis, metabolic. Recs: Continue Zosyn IV Follow temps Monitor progress. To get bleeding scan Vascular evaluation SAI D/W LEANA
--- NOTE | 2018-04-20 08:37 | P.PNVS ---
Subjective Subjective/Hospital Course: Large bloody bowel movement this a.m. Objective Vital Signs / I&O: Vital Signs 04/19/18 08:51 04/19/18 09:00 04/19/18 09:01 Temperature Pulse Rate 80 80 81 Respiratory Rate 16 15 18 Blood Pressure 134/71 100/49 L Pulse Oximetry 93 L 94 L 94 L 04/19/18 09:15 04/19/18 09:30 04/19/18 09:46 Temperature Pulse Rate 82 85 86 Respiratory Rate 13 13 16 Blood Pressure 83/47 L 91/45 L 132/58 L Pulse Oximetry 96 93 L 90 L 04/19/18 10:00 04/19/18 10:15 04/19/18 10:31 Temperature Pulse Rate 86 87 91 H Respiratory Rate 16 19 17 Blood Pressure 106/49 L 109/51 L 109/65 Pulse Oximetry 89 L 92 L 86 L 04/19/18 10:45 04/19/18 11:00 04/19/18 11:15 Temperature Pulse Rate 93 H 97 H 101 H Respiratory Rate 19 17 17 Blood Pressure 107/55 L 98/54 L 105/65 Pulse Oximetry 87 L 85 L 81 L 04/19/18 11:30 04/19/18 12:00 04/19/18 13:00 Temperature 99.6 F Pulse Rate 99 H 97 H 99 H Respiratory Rate 17 13 21 Blood Pressure 98/56 L 101/46 L 94/38 L Pulse Oximetry 84 L 84 L 04/19/18 14:00 04/19/18 15:00 04/19/18 16:00 Temperature 99.3 F Pulse Rate 99 H 101 H 93 H Respiratory Rate 15 16 17 Blood Pressure 96/65 L 89/51 L Pulse Oximetry 98 98 92 L 04/19/18 17:00 04/19/18 17:45 04/19/18 18:00 Temperature Pulse Rate 93 H 93 H 92 H Respiratory Rate 14 12 15 Blood Pressure 145/53 H 113/77 103/46 L Pulse Oximetry 83 L 100 04/19/18 19:00 04/19/18 20:00 04/19/18 20:32 Temperature 97.7 F Pulse Rate 93 H 95 H Respiratory Rate 11 L 12 Blood Pressure 89/52 L 80/57 L Pulse Oximetry 90 L 96 100 04/19/18 20:58 04/19/18 21:00 04/19/18 21:30 Temperature Pulse Rate 95 H 95 H 88 Respiratory Rate 12 13 12 Blood Pressure 88/50 L 86/53 L 84/50 L Pulse Oximetry 96 91 L 99 04/19/18 21:33 04/19/18 21:52 04/19/18 22:00 Temperature Pulse Rate 91 H 92 H 90 Respiratory Rate 16 15 15 Blood Pressure 186/84 H 187/90 H Pulse Oximetry 99 100 99 04/19/18 22:52 04/19/18 22:53 04/19/18 23:00 Temperature Pulse Rate 92 H 91 H 91 H Respiratory Rate 15 11 L 14 Blood Pressure 190/92 H 191/93 H Pulse Oximetry 99 98 100 04/19/18 23:01 04/20/18 00:00 04/20/18 00:01 Temperature Pulse Rate 94 H 89 93 H Respiratory Rate 11 L 21 18 Blood Pressure 245/192 H 256/144 H 256/144 H Pulse Oximetry 100 99 99 04/20/18 01:00 04/20/18 01:02 04/20/18 02:00 Temperature Pulse Rate 89 91 H 85 Respiratory Rate 14 19 17 Blood Pressure 132/59 L Pulse Oximetry 99 100 100 04/20/18 02:07 04/20/18 03:00 04/20/18 04:00 Temperature Pulse Rate 85 89 89 Respiratory Rate 18 13 12 Blood Pressure 130/60 147/57 H 155/95 H Pulse Oximetry 99 99 95 04/20/18 05:00 04/20/18 08:14 04/20/18 08:23 Temperature Pulse Rate 86 86 Respiratory Rate 15 24 Blood Pressure 163/64 H Pulse Oximetry 99 96 Intake & Output 04/19/18 04/20/18 04/20/18 18:59 06:59 18:59 Intake Total 300 / 300 1330 / 1330 Output Total 1000 / 1000 0 / 0 Balance -700 / -700 1330 / 1330 Weight 66.8 kg Intake: IV 100 / 100 1100 / 1100 D5W/Normal Saline Inj 1,000 ML 1000 / 1000 @ 42 mls/hr IV.CONT .[id number] [facility] Rx#:[id number] Zosyn 2.25 GM Premix 50 ML @ 100 / 100 100 / 100 100 mls/hr IV.SIG Q6H [facility] Rx#: [id number] Tube Feeding 30 / 30 Water Bolus Amount 200 / 200 200 / 200 Output: Urine 0 / 0 Hemodialysis Amount 1000 / 1000 Other: Date of Last Bowel Movement 04/19/18 04/20/18 # Bowel Movements 1 2 Physical Exam: Left upper extremity mottling cyanosis resolved. Laboratory Results - last 24 hr 04/19/18 04/19/18 04/19/18 11:09 12:51 17:07 WBC RBC Hgb Hct MCV MCH MCHC RDW Plt Count MPV Prelim Diff (Auto) Neut % (Auto) Lymph % (Auto) [place] % (Auto) Eos % (Auto) Baso % (Auto) Neut # (Auto) Lymph # (Auto) [place] # (Auto) Eos # (Auto) Baso # (Auto) WBC Differential Seg Neuts % (Manual) Band Neuts % (Manual) Lymphocytes % (Manual) Monocytes % (Manual) Basophils % (Manual) Metamyelocytes % (Man) Myelocytes % (Man) Abs Neuts (Manual) Differential Comment Platelet Estimate Platelet Morphology PT INR APTT Fibrinogen Sodium Potassium 3.5 D Chloride Carbon Dioxide Anion Gap BUN Creatinine Estimated GFR POC Glucose 140 H 150 H Random Glucose Calcium Phosphorus Magnesium Total Bilirubin AST ALT Alkaline Phosphatase Total Protein Albumin Blood Type Blood Type Recheck Antibody Screen MTS Gel Crossmatch 04/19/18 04/20/18 04/20/18 22:31 00:39 04:35 WBC 9.9 RBC 2.29 L Hgb 7.4 L 7.6 L Hct 22.6 L 22.6 L MCV 98.7 MCH 32.9 MCHC 33.4 RDW 19.0 H Plt Count 230 MPV 9.5 Prelim Diff (Auto) Slide review pending Neut % (Auto) 71.5 H Lymph % (Auto) 15.1 [place] % (Auto) 12.4 H Eos % (Auto) 0.2 Baso % (Auto) 0.8 Neut # (Auto) 7.1 Lymph # (Auto) 1.5 [place] # (Auto) 1.2 H Eos # (Auto) 0.0 Baso # (Auto) 0.1 WBC Differential Manual diff final Seg Neuts % (Manual) 62 Band Neuts % (Manual) 9 H Lymphocytes % (Manual) 16 Monocytes % (Manual) 9 H Basophils % (Manual) 1 Metamyelocytes % (Man) 2 H Myelocytes % (Man) 1 H Abs Neuts (Manual) 7.3 Differential Comment . Platelet Estimate Normal Platelet Morphology Normal PT INR APTT Fibrinogen Sodium Potassium Chloride Carbon Dioxide Anion Gap BUN Creatinine Estimated GFR POC Glucose 177 H Random Glucose Calcium Phosphorus Magnesium Total Bilirubin AST ALT Alkaline Phosphatase Total Protein Albumin Blood Type Blood Type Recheck Antibody Screen MTS Gel Crossmatch 04/20/18 04/20/18 04/20/18 04:35 07:11 07:11 WBC RBC Hgb Hct MCV MCH MCHC RDW Plt Count MPV Prelim Diff (Auto) Neut % (Auto) Lymph % (Auto) [place] % (Auto) Eos % (Auto) Baso % (Auto) Neut # (Auto) Lymph # (Auto) [place] # (Auto) Eos # (Auto) Baso # (Auto) WBC Differential Seg Neuts % (Manual) Band Neuts % (Manual) Lymphocytes % (Manual) Monocytes % (Manual) Basophils % (Manual) Metamyelocytes % (Man) Myelocytes % (Man) Abs Neuts (Manual) Differential Comment Platelet Estimate Platelet Morphology PT 13.5 H INR 1.3 APTT 35.6 H Fibrinogen 697 H Sodium 146 H Potassium 4.0 Chloride 104 Carbon Dioxide 29.0 Anion Gap 13 BUN 71 H Creatinine 5.70 H Estimated GFR 7 L POC Glucose Random Glucose 173 H Calcium 7.6 L Phosphorus 7.1 H D Magnesium 2.1 Total Bilirubin 1.0 AST 66 H ALT 168 H Alkaline Phosphatase 115 Total Protein 7.2 Albumin 2.2 L Blood Type O Negative Blood Type Recheck Required Antibody Screen Negative MTS Gel Crossmatch See Detail 04/20/18 04/20/18 04/20/18 07:28 07:50 07:55 WBC 10.2 RBC 2.07 L Hgb 6.8 L* Hct 21.1 L MCV 102.0 H MCH 33.0 MCHC 32.3 RDW 19.0 H Plt Count 225 MPV 9.3 Prelim Diff (Auto) Neut % (Auto) Lymph % (Auto) [place] % (Auto) Eos % (Auto) Baso % (Auto) Neut # (Auto) Lymph # (Auto) [place] # (Auto) Eos # (Auto) Baso # (Auto) WBC Differential Seg Neuts % (Manual) Band Neuts % (Manual) Lymphocytes % (Manual) Monocytes % (Manual) Basophils % (Manual) Metamyelocytes % (Man) Myelocytes % (Man) Abs Neuts (Manual) Differential Comment Platelet Estimate Platelet Morphology PT INR APTT Fibrinogen Sodium Potassium Chloride Carbon Dioxide Anion Gap BUN Creatinine Estimated GFR POC Glucose 184 H Random Glucose Calcium Phosphorus Magnesium Total Bilirubin AST ALT Alkaline Phosphatase Total Protein Albumin Blood Type Blood Type Recheck Antibody Screen MTS Gel Crossmatch See Detail Microbiology 04/15/18 13:55 Aerobic Blood Culture - Preliminary Blood - Peripheral No growth in 4 days Anaerobic Blood Culture - Preliminary No growth in 4 days 04/15/18 11:30 Aerobic Blood Culture - Preliminary Blood - Line No growth in 4 days Anaerobic Blood Culture - Preliminary No growth in 4 days 04/14/18 10:20 Aerobic Blood Culture - Final Blood - Peripheral No growth in 5 days Anaerobic Blood Culture - Final No growth in 5 days 04/14/18 10:25 Aerobic Blood Culture - Final Blood - Peripheral No growth in 5 days Anaerobic Blood Culture - Final No growth in 5 days Impressions Chest X-Ray 04/20/18 06:00 CONCLUSION: Mild consolidation or atelectasis at the medial right base which appears to be improving. 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 I examined the patient yesterday during hemodialysis and her left hand was mottled and cyanotic. This morning, her left hand mottling and cyanosis completely resolved. I believe that the significant steal happens only during dialysis. Patient had massive bloody bowel movement this morning. The surgery was canceled this morning per the recommendation of the critical care team and anesthesia team. I will continue to follow the patient and plan her surgery when cleared. Alexis Stuart MD [phone]
[2018-04-20] MEDS ORDERED: Pantoprazole Inj 80 MG in Sodium Chlor 0.9% Inj 35 ML IV.SIG ONE (09:00)
[2018-04-20] MEDS: Calcium Acetate 667 MG Capsule NG/OG SCH ×3 (10:00→18:03)
[2018-04-20] MEDS: dilTIAZem 30 MG Tablet PO SCH ×4 (10:00→21:14)
--- NOTE | 2018-04-20 10:31 | P.PNGI ---
Subjective Interval history: Patient awake alert Denies abdominal pain GI notified due to patient passing maroon colored stools with blood clots overnight Physical Exam Vital signs: Vital Signs 04/19/18 10:31 04/19/18 10:45 04/19/18 11:00 Temperature Pulse Rate 91 H 93 H 97 H Respiratory Rate 17 19 17 Blood Pressure 109/65 107/55 L 98/54 L Pulse Oximetry 86 L 87 L 85 L 04/19/18 11:15 04/19/18 11:30 04/19/18 12:00 Temperature 99.6 F Pulse Rate 101 H 99 H 97 H Respiratory Rate 17 17 13 Blood Pressure 105/65 98/56 L 101/46 L Pulse Oximetry 81 L 84 L 84 L 04/19/18 13:00 04/19/18 14:00 04/19/18 15:00 Temperature Pulse Rate 99 H 99 H 101 H Respiratory Rate 21 15 16 Blood Pressure 94/38 L 96/65 L 89/51 L Pulse Oximetry 98 98 04/19/18 16:00 04/19/18 17:00 04/19/18 17:45 Temperature 99.3 F Pulse Rate 93 H 93 H 93 H Respiratory Rate 17 14 12 Blood Pressure 145/53 H 113/77 Pulse Oximetry 92 L 83 L 04/19/18 18:00 04/19/18 19:00 04/19/18 20:00 Temperature 97.7 F Pulse Rate 92 H 93 H 95 H Respiratory Rate 15 11 L 12 Blood Pressure 103/46 L 89/52 L 80/57 L Pulse Oximetry 100 90 L 96 04/19/18 20:32 04/19/18 20:58 04/19/18 21:00 Temperature Pulse Rate 95 H 95 H Respiratory Rate 12 13 Blood Pressure 88/50 L 86/53 L Pulse Oximetry 100 96 91 L 04/19/18 21:30 04/19/18 21:33 04/19/18 21:52 Temperature Pulse Rate 88 91 H 92 H Respiratory Rate 12 16 15 Blood Pressure 84/50 L 186/84 H 187/90 H Pulse Oximetry 99 99 100 04/19/18 22:00 04/19/18 22:52 04/19/18 22:53 Temperature Pulse Rate 90 92 H 91 H Respiratory Rate 15 15 11 L Blood Pressure 190/92 H 191/93 H Pulse Oximetry 99 99 98 04/19/18 23:00 12/13/18 23:01 04/20/18 00:00 Temperature Pulse Rate 91 H 94 H 89 Respiratory Rate 14 11 L 21 Blood Pressure 245/192 H 256/144 H Pulse Oximetry 100 100 99 04/20/18 00:01 04/20/18 01:00 04/20/18 01:02 Temperature Pulse Rate 93 H 89 91 H Respiratory Rate 18 14 19 Blood Pressure 256/144 H 132/59 L Pulse Oximetry 99 99 100 04/20/18 02:00 04/20/18 02:07 04/20/18 03:00 Temperature Pulse Rate 85 85 89 Respiratory Rate 17 18 13 Blood Pressure 130/60 147/57 H Pulse Oximetry 100 99 99 04/20/18 04:00 04/20/18 05:00 04/20/18 08:14 Temperature Pulse Rate 89 86 Respiratory Rate 12 15 Blood Pressure 155/95 H 163/64 H Pulse Oximetry 95 99 96 04/20/18 08:23 Temperature Pulse Rate 86 Respiratory Rate 24 Blood Pressure Pulse Oximetry Intake & Output 04/19/18 04/20/18 04/20/18 18:59 06:59 18:59 Intake Total 300 / 300 1330 / 1330 Output Total 1000 / 1000 0 / 0 Balance -700 / -700 1330 / 1330 Weight 66.8 kg Intake: IV 100 / 100 1100 / 1100 D5W/Normal Saline Inj 1,000 ML 1000 / 1000 @ 42 mls/hr IV.CONT .[id number] [facility] Rx#:[id number] Zosyn 2.25 GM Premix 50 ML @ 100 / 100 100 / 100 100 mls/hr IV.SIG Q6H [facility] Rx#: [id number] Tube Feeding 30 / 30 Water Bolus Amount 200 / 200 200 / 200 Output: Urine 0 / 0 Hemodialysis Amount 1000 / 1000 Other: Date of Last Bowel Movement 04/19/18 04/20/18 # Bowel Movements 1 2 - Constitutional no acute distress, chronically ill appearing - Routine HEENT Exam Head: Present: normocephalic Comments: NG tube to low intermittent wall suction Scant amount of dark green drainage noted in collection container - Routine Respiratory Exam Present: CTA bilaterally. Absent: accessory muscle use, respiratory distress - Routine Cardiovascular Exam Present: RRR, S1, S2 - Routine Abdominal Exam Present: soft, normoactive bowel sounds. Absent: tenderness, distended, guarding, firm - Routine Skin Exam Present: dry, pallor, warm - Routine Neurological Exam Present: alert - Urinary Catheter Management Indwelling Urethral Catheter Cath placed during this visit: yes, but has since been removed by the nurse Reason for continuing: Hourly intake/output Insertion date: 04/14/18 Insertion time: 10:35 Removal date: 04/14/18 Removal time: 17:30 Results - Labs CBC & Chem 7: 04/20/18 07:28 04/20/18 04:35 Laboratory Results - last 24 hr 04/19/18 04/19/18 04/19/18 11:09 12:51 17:07 WBC RBC Hgb Hct MCV MCH MCHC RDW Plt Count MPV Prelim Diff (Auto) Neut % (Auto) Lymph % (Auto) Louisa % (Auto) Eos % (Auto) Baso % (Auto) Neut # (Auto) Lymph # (Auto) Louisa # (Auto) Eos # (Auto) Baso # (Auto) WBC Differential Seg Neuts % (Manual) Band Neuts % (Manual) Lymphocytes % (Manual) Monocytes % (Manual) Basophils % (Manual) Metamyelocytes % (Man) Myelocytes % (Man) Abs Neuts (Manual) Differential Comment Platelet Estimate Platelet Morphology PT INR APTT Fibrinogen Sodium Potassium 3.5 D Chloride Carbon Dioxide Anion Gap BUN Creatinine Estimated GFR POC Glucose 140 H 150 H Random Glucose Lactic Acid Calcium Phosphorus Magnesium Total Bilirubin AST ALT Alkaline Phosphatase Total Protein Albumin Blood Type Blood Type Recheck Antibody Screen MTS Gel Crossmatch 04/19/18 04/20/18 04/20/18 22:31 00:39 04:35 WBC 9.9 RBC 2.29 L Hgb 7.4 L 7.6 L Hct 22.6 L 22.6 L MCV 98.7 MCH 32.9 MCHC 33.4 RDW 19.0 H Plt Count 230 MPV 9.5 Prelim Diff (Auto) Slide review pending Neut % (Auto) 71.5 H Lymph % (Auto) 15.1 Louisa % (Auto) 12.4 H Eos % (Auto) 0.2 Baso % (Auto) 0.8 Neut # (Auto) 7.1 Lymph # (Auto) 1.5 Louisa # (Auto) 1.2 H Eos # (Auto) 0.0 Baso # (Auto) 0.1 WBC Differential Manual diff final Seg Neuts % (Manual) 62 Band Neuts % (Manual) 9 H Lymphocytes % (Manual) 16 Monocytes % (Manual) 9 H Basophils % (Manual) 1 Metamyelocytes % (Man) 2 H Myelocytes % (Man) 1 H Abs Neuts (Manual) 7.3 Differential Comment . Platelet Estimate Normal Platelet Morphology Normal PT INR APTT Fibrinogen Sodium Potassium Chloride Carbon Dioxide Anion Gap BUN Creatinine Estimated GFR POC Glucose 177 H Random Glucose Lactic Acid Calcium Phosphorus Magnesium Total Bilirubin AST ALT Alkaline Phosphatase Total Protein Albumin Blood Type Blood Type Recheck Antibody Screen MTS Gel Crossmatch 04/20/18 04/20/18 04/20/18 04:35 07:11 07:11 WBC RBC Hgb Hct MCV MCH MCHC RDW Plt Count MPV Prelim Diff (Auto) Neut % (Auto) Lymph % (Auto) Louisa % (Auto) Eos % (Auto) Baso % (Auto) Neut # (Auto) Lymph # (Auto) Louisa # (Auto) Eos # (Auto) Baso # (Auto) WBC Differential Seg Neuts % (Manual) Band Neuts % (Manual) Lymphocytes % (Manual) Monocytes % (Manual) Basophils % (Manual) Metamyelocytes % (Man) Myelocytes % (Man) Abs Neuts (Manual) Differential Comment Platelet Estimate Platelet Morphology PT 13.5 H INR 1.3 APTT 35.6 H Fibrinogen 697 H Sodium 146 H Potassium 4.0 Chloride 104 Carbon Dioxide 29.0 Anion Gap 13 BUN 71 H Creatinine 5.70 H Estimated GFR 7 L POC Glucose Random Glucose 173 H Lactic Acid Calcium 7.6 L Phosphorus 7.1 H D Magnesium 2.1 Total Bilirubin 1.0 AST 66 H ALT 168 H Alkaline Phosphatase 115 Total Protein 7.2 Albumin 2.2 L Blood Type O Negative Blood Type Recheck Required Antibody Screen Negative MTS Gel Crossmatch See Detail 04/20/18 04/20/18 04/20/18 07:28 07:28 07:50 WBC 10.2 RBC 2.07 L Hgb 6.8 L* Hct 21.1 L MCV 102.0 H MCH 33.0 MCHC 32.3 RDW 19.0 H Plt Count 225 MPV 9.3 Prelim Diff (Auto) Neut % (Auto) Lymph % (Auto) Louisa % (Auto) Eos % (Auto) Baso % (Auto) Neut # (Auto) Lymph # (Auto) Louisa # (Auto) Eos # (Auto) Baso # (Auto) WBC Differential Seg Neuts % (Manual) Band Neuts % (Manual) Lymphocytes % (Manual) Monocytes % (Manual) Basophils % (Manual) Metamyelocytes % (Man) Myelocytes % (Man) Abs Neuts (Manual) Differential Comment Platelet Estimate Platelet Morphology PT INR APTT Fibrinogen Sodium Potassium Chloride Carbon Dioxide Anion Gap BUN Creatinine Estimated GFR POC Glucose 184 H Random Glucose Lactic Acid 0.5 Calcium Phosphorus Magnesium Total Bilirubin AST ALT Alkaline Phosphatase Total Protein Albumin Blood Type Blood Type Recheck Antibody Screen MTS Gel Crossmatch 04/20/18 07:55 WBC RBC Hgb Hct MCV MCH MCHC RDW Plt Count MPV Prelim Diff (Auto) Neut % (Auto) Lymph % (Auto) Louisa % (Auto) Eos % (Auto) Baso % (Auto) Neut # (Auto) Lymph # (Auto) Louisa # (Auto) Eos # (Auto) Baso # (Auto) WBC Differential Seg Neuts % (Manual) Band Neuts % (Manual) Lymphocytes % (Manual) Monocytes % (Manual) Basophils % (Manual) Metamyelocytes % (Man) Myelocytes % (Man) Abs Neuts (Manual) Differential Comment Platelet Estimate Platelet Morphology PT INR APTT Fibrinogen Sodium Potassium Chloride Carbon Dioxide Anion Gap BUN Creatinine Estimated GFR POC Glucose Random Glucose Lactic Acid Calcium Phosphorus Magnesium Total Bilirubin AST ALT Alkaline Phosphatase Total Protein Albumin Blood Type Blood Type Recheck Antibody Screen MTS Gel Crossmatch See Detail Microbiology 04/15/18 13:55 Blood - Peripheral Aerobic Blood Culture - Preliminary No growth in 4 days 04/15/18 13:55 Blood - Peripheral Anaerobic Blood Culture - Preliminary No growth in 4 days 04/15/18 11:30 Blood - Line Aerobic Blood Culture - Preliminary No growth in 4 days 04/15/18 11:30 Blood - Line Anaerobic Blood Culture - Preliminary No growth in 4 days 04/14/18 10:20 Blood - Peripheral Aerobic Blood Culture - Final No growth in 5 days 04/14/18 10:20 Blood - Peripheral Anaerobic Blood Culture - Final No growth in 5 days 04/14/18 10:25 Blood - Peripheral Aerobic Blood Culture - Final No growth in 5 days 04/14/18 10:25 Blood - Peripheral Anaerobic Blood Culture - Final No growth in 5 days - Imaging Impressions Chest X-Ray 12/14/18 06:00 CONCLUSION: Mild consolidation or atelectasis at the medial right base which appears to be improving. Assessment and Plan - Plan This is a 72-year-old female who entered the hospital on 04/14/2018 after being found unresponsive per her roommate. According to the record and staff patient was intubated in the emergency room setting and received multiple lab work and aggressive therapy there was a CAT scan that showed distended gallbladder with cholelithiasis and liver ultrasound that showed positive cholelithiasis and gallbladder sludge and a small amount of air in the fundus of the gallbladder. Lab work was reviewed which showed initial hemoglobin 12.6 now decreased to 10.6 , initial WBC count 12.5 now normalized to 8.4, PT/INR 1.3, lipase 47, bilirubin 0.7, AST 1050, ALT 8:06 AM positive troponin IV 0.35. Gastroenterology was consulted to assist in her plan of care but it is noted after examination of the patient and per the record patient is acutely critically ill in the intensive care setting. There is currently no family present but according to staff patient has a daughter and a son. Transaminitis, these elevated liver enzymes could be related to shock liver since patient was found unresponsive. She will need continuing monitoring of these labs for any acute changes Anemia current hemoglobin 10.6 which is a mild decrease from admission. Patient has NG tube which shows dark bilious fluid return but also some possible coffee-ground debris noted initially in the NG tube. We will need to rule out any GI bleeding Ultrasound of the liver did show positive gallstones and sludge and recommendation was for MRCP but this will need to be done when patient is stable. MRCP has been ordered but probably on hold for this p.m. History of end-stage renal disease on hemodialysis Monday and Monday schedule. Patient has had cultures done for possible sepsis Left upper extremity is cool to the touch right upper extremity is warm, both lower extremities are cool. Possible non-STEMI cardiology involved Possible gallbladder disease rule out Ultrasound gallbladder contains sludge and stones. However, no additional findings are present to definitively indicate acute cholecystitis. Common bile duct is enlarged but contains no visible stone. Given the pain one could consider MRCP for further evaluation of the common duct stone as a cause for the duct dilatation in right upper quadrant pain. Atrophic right kidney with changes suggesting chronic medical renal disease. There is a complex cystic lesion in the mid kidney and renal sinus measuring up to 3.5 cm. At some point ideally be further characterized with renal protocol MRI with and without intravenous contrast. This should be performed on an elective basis when condition permits. 04/16/2018 -Patient intubated and mechanically ventilated. Plan for MRCP today. Orogastric tube to low intermittent suction 100 mL's of dark green bilious fluid noted. No obvious bleeding noted. -Transaminitis-likely due to shock liver as patient was found unresponsive, will continue to monitor LFTs -WBC 12.4 hemoglobin 10.3 hematocrit 31.6 INR 1.3 total bilirubin 0.9 AST 475 ALT 632 alk phos 58 ammonia less than 10 -04/16/2018 MRCP revealed the following findings: 1. Cholelithiasis with multiple small gallstones layering dependently. There is no gallbladder wall thickening or inflammatory change. No gas is visualized on the MRI. 2. Common bile duct measuring up to 1 cm with no filling defects or mass. This could represent distal obstruction or prior passage of stones. 3. Multiple benign-appearing small cystic structures in the pancreas. 4. Bilateral simple renal cysts as well as a more complex right parapelvic cyst. 04/17/2018 Intubated and mechanically ventilated. Orogastric tube to low intermittent wall suction, minimal scant drainage dark green bilious fluid. No obvious bleeding noted. Transaminitis--trending down, total bilirubin 1.0 AST 423 ALT 560 alk phos 74 WBC 10.6 hemoglobin 9.2 hematocrit 27.1 Decrease probability of choledocholithiasis, likely shock liver in view of liver panel Continue present conservative treatment 04/18/2018 Extubated on oxygen simple mask. No bleeding noted WBC 8.8 hemoglobin 9.7 hematocrit 29.3 platelet count 206 Total bilirubin 1.3 AST 217 alk phos 95 ALT 460 ammonia 16 lipase 217 04/20/2018 Patient resting soundly with eyes closed, awakens easily Denies abdominal pain. GI notified due to patient passing large amounts of maroon colored stool with clots overnight. WBC 10.2 hemoglobin 6.8 hematocrit 21.1 platelet count 225 INR 1.3 Total bilirubin 1.0 AST 66 ALT 168 alk phos 155 improving. Plan -NG tube to low intermittent wall suction -Monitor for bleeding -ppi -Bleeding scan -Obtain consent for EGD and colonoscopy -Bishnu prep -Monitor hemoglobin and hematocrit closely -Transfuse as needed -Monitor liver function tests-possible shock liver, LFTs trending down -Supportive care -Further recommendations to follow This patient has been seen by myself and Dr. Catherine and this note is written on his behalf - Attending Attestation Dr. Catherine
--- NOTE | 2018-04-20 13:21 | NM ---
EXAM DATE: 04/20/2018 1:11 PM EST AGE/SEX: 72 years / Female INDICATIONS: Bright red blood per rectum. CLINICAL DATA: This is the patient's initial encounter. Patient reports that signs and symptoms have been present for 1 day and indicates a pain score of 0/10. MEDICAL/SURGICAL HISTORY: Diabetes. Renal disease, end stage. Gastroesophageal reflux disease . 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 None. COMPARISON: No prior exams available for comparison. TECHNIQUE: Following the modified in vitro labeling of autologous red cells, dynamic continuous image s were acquired for two hours. ?? DOSE: 21.1 mCi Tc 99m Ultratag Labeled Red Blood Cells IV IMAGING TIME: 2 hr FINDINGS: Biodistribution: There is a very good labeling of red cells without significant uptake in the gastri c wall. There is good delineation of the blood pool of the spleen and abdominal vessels. Bleeding: No episodes of active GI bleeding are observed during two hours of continuous observation . CONCLUSION: 1. Negative for gastrointestinal hemorrhage. Electronically signed by: Alok Lentz MD Board Certified Radiologist 04/20/2018 1:20 PM EST
--- NOTE | 2018-04-20 15:58 | P.PNNP ---
Subjective Interval history: Patient was seen, no distress. Patient was receiving a blood transfusion. Patient had blood in her stool today so was sent for a bleed scan, it was negative for gastrointestinal hemorrhage. 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 Left upper extremity AV fistula ligation to augment flow to the left hand was planned for today, Vascular canceled per request of critical care team. Patient to be dialyzed tomorrow. Patient gets dialysis TTS. <Nehemiah Reyes - Last Filed: 04/20/18 16:00> Physical Exam Vital signs: Vital Signs 04/19/18 16:00 04/19/18 17:00 04/19/18 17:45 Temperature 99.3 F Pulse Rate 93 H 93 H 93 H Respiratory Rate 17 14 12 Blood Pressure 145/53 H 113/77 Pulse Oximetry 92 L 83 L 04/19/18 18:00 04/19/18 19:00 04/19/18 20:00 Temperature 97.7 F Pulse Rate 92 H 93 H 95 H Respiratory Rate 15 11 L 12 Blood Pressure 103/46 L 89/52 L 80/57 L Pulse Oximetry 100 90 L 96 04/19/18 20:32 04/19/18 20:58 04/19/18 21:00 Temperature Pulse Rate 95 H 95 H Respiratory Rate 12 13 Blood Pressure 88/50 L 86/53 L Pulse Oximetry 100 96 91 L 04/19/18 21:30 04/19/18 21:33 04/19/18 21:52 Temperature Pulse Rate 88 91 H 92 H Respiratory Rate 12 16 15 Blood Pressure 84/50 L 186/84 H 187/90 H Pulse Oximetry 99 99 100 04/19/18 22:00 04/19/18 22:52 04/19/18 22:53 Temperature Pulse Rate 90 92 H 91 H Respiratory Rate 15 15 11 L Blood Pressure 190/92 H 191/93 H Pulse Oximetry 99 99 98 04/19/18 23:00 04/19/18 23:01 04/20/18 00:00 Temperature Pulse Rate 91 H 94 H 89 Respiratory Rate 14 11 L 21 Blood Pressure 245/192 H 256/144 H Pulse Oximetry 100 100 99 04/20/18 00:01 04/20/18 01:00 04/20/18 01:02 Temperature Pulse Rate 93 H 89 91 H Respiratory Rate 18 14 19 Blood Pressure 256/144 H 132/59 L Pulse Oximetry 99 99 100 04/20/18 02:00 04/20/18 02:07 04/20/18 03:00 Temperature Pulse Rate 85 85 89 Respiratory Rate 17 18 13 Blood Pressure 130/60 147/57 H Pulse Oximetry 100 99 99 04/20/18 04:00 04/20/18 05:00 04/20/18 08:00 Temperature 102.4 F H Pulse Rate 89 86 87 Respiratory Rate 12 15 15 Blood Pressure 155/95 H 163/64 H 149/63 H Pulse Oximetry 95 99 97 04/20/18 08:14 04/20/18 08:23 04/20/18 12:00 Temperature 100.4 F H Pulse Rate 86 86 Respiratory Rate 24 21 Blood Pressure 147/60 H Pulse Oximetry 96 94 L 04/20/18 14:40 04/20/18 14:48 Temperature 98.0 F Pulse Rate 86 87 Respiratory Rate 14 Blood Pressure 172/67 H Pulse Oximetry Intake & Output 04/19/18 04/20/18 04/20/18 18:59 06:59 18:59 Intake Total 300 / 300 1330 / 1330 0 / 0 Output Total 1000 / 1000 0 / 0 Balance -700 / -700 1330 / 1330 0 / 0 Weight 66.8 kg Intake: IV 100 / 100 1100 / 1100 D5W/Normal Saline Inj 1,000 ML 1000 / 1000 @ 42 mls/hr IV.CONT .[id number] [facility] Rx#:[id number] Zosyn 2.25 GM Premix 50 ML @ 100 / 100 100 / 100 100 mls/hr IV.SIG Q6H [facility] Rx#: [id number] Tube Feeding 30 / 30 Water Bolus Amount 200 / 200 200 / 200 Intake (Blood Product) Amt 0 / 0 Rbc As-3 Leukoreduced Unit 0 / 0 [id number] Output: Urine 0 / 0 Hemodialysis Amount 1000 / 1000 Other: Date of Last Bowel Movement 04/19/18 04/20/18 04/20/18 # Bowel Movements 1 2 - Constitutional no acute distress - Routine HEENT Exam Head: Present: normocephalic Eye: Present: EOMI, PERRL ENT: Present: mucous membranes moist - Routine Neck Exam Present: trachea midline. Absent: JVD, tracheal deviation - Routine Respiratory Exam Absent: decreased breath sounds, respiratory distress Comments: Patient on O2 face mask. - Routine Cardiovascular Exam Present: S1, S2 - Routine Abdominal Exam Present: soft, normoactive bowel sounds - Routine Extremities Exam Present: edema, AV fistula - Routine Neurological Exam Present: alert - Routine Psychiatric Exam Present: unable to assess - Urinary Catheter Management Indwelling Urethral Catheter Cath placed during this visit: yes, but has since been removed by the nurse Reason for continuing: Hourly intake/output Insertion date: 04/14/18 Insertion time: 10:35 Removal date: 04/14/18 Removal time: 17:30 <Nehemiah Reyes - Last Filed: 04/20/18 16:00> Vital signs: Vital Signs 04/19/18 21:30 04/19/18 21:33 04/19/18 21:52 Temperature Pulse Rate 88 91 H 92 H Respiratory Rate 12 16 15 Blood Pressure 84/50 L 186/84 H 187/90 H Pulse Oximetry 99 99 100 04/19/18 22:00 04/19/18 22:52 04/19/18 22:53 Temperature Pulse Rate 90 92 H 91 H Respiratory Rate 15 15 11 L Blood Pressure 190/92 H 191/93 H Pulse Oximetry 99 99 98 04/19/18 23:00 04/19/18 23:01 04/20/18 00:00 Temperature Pulse Rate 91 H 94 H 89 Respiratory Rate 14 11 L 21 Blood Pressure 245/192 H 256/144 H Pulse Oximetry 100 100 99 04/20/18 00:01 04/20/18 01:00 04/20/18 01:02 Temperature Pulse Rate 93 H 89 91 H Respiratory Rate 18 14 19 Blood Pressure 256/144 H 132/59 L Pulse Oximetry 99 99 100 04/20/18 02:00 04/20/18 02:07 04/20/18 03:00 Temperature Pulse Rate 85 85 89 Respiratory Rate 17 18 13 Blood Pressure 130/60 147/57 H Pulse Oximetry 100 99 99 04/20/18 04:00 04/20/18 05:00 04/20/18 08:00 Temperature 102.4 F H Pulse Rate 89 86 87 Respiratory Rate 12 15 15 Blood Pressure 155/95 H 163/64 H 149/63 H Pulse Oximetry 95 99 97 04/20/18 08:14 04/20/18 08:23 04/20/18 12:00 Temperature 100.4 F H Pulse Rate 86 86 Respiratory Rate 24 21 Blood Pressure 147/60 H Pulse Oximetry 96 94 L 04/20/18 14:40 04/20/18 14:48 04/20/18 16:00 Temperature 98.0 F 100.8 F H Pulse Rate 86 87 83 Respiratory Rate 14 16 Blood Pressure 172/67 H 178/72 H Pulse Oximetry 96 04/20/18 16:15 04/20/18 16:30 04/20/18 16:45 Temperature 99.4 F 99.4 F 99.4 F Pulse Rate 85 86 Respiratory Rate 20 20 20 Blood Pressure 178/72 H 196/85 H 156/70 H Pulse Oximetry 96 83 L 04/20/18 16:58 04/20/18 17:15 04/20/18 17:30 Temperature Pulse Rate Respiratory Rate Blood Pressure 203/77 H 183/67 H 204/74 H Pulse Oximetry 04/20/18 19:23 04/20/18 19:27 Temperature Pulse Rate 78 Respiratory Rate 18 Blood Pressure Pulse Oximetry 95 Intake & Output 04/20/18 04/20/18 04/21/18 06:59 18:59 06:59 Intake Total 1330 / 1330 100 / 100 0 / 0 Output Total 0 / 0 Balance 1330 / 1330 100 / 100 0 / 0 Weight 66.8 kg Intake: IV 1100 / 1100 100 / 100 D5W/Normal Saline Inj 1,000 ML 1000 / 1000 @ 42 mls/hr IV.CONT .[id number] [facility] Rx#:[id number] Zosyn 2.25 GM Premix 50 ML @ 100 / 100 100 / 100 100 mls/hr IV.SIG Q6H [facility] Rx#: [id number] Tube Feeding 30 / 30 Water Bolus Amount 200 / 200 Intake (Blood Product) Amt 0 / 0 0 / 0 Rbc As-3 Leukoreduced Unit 0 / 0 0 / 0 [id number] Rbc As-3 Leukoreduced Unit 0 / 0 [id number] Output: Urine 0 / 0 Other: Date of Last Bowel Movement 04/20/18 04/20/18 # Bowel Movements 2 - Urinary Catheter Management Indwelling Urethral Catheter Cath placed during this visit: no <Blake Michel - Last Filed: 04/20/18 21:15> Assessment and Plan - Assessment (1) ESRD (end stage renal disease) Code(s): N18.6 - End stage renal disease Status: Chronic Plan: Patient gets dialysis TTS. Patient to be dialyzed tomorrow. L arm AVF, avoid blood pressure or blood draws in left arm. 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 Left upper extremity AV fistula ligation to augment flow to the left hand was planned for today, Vascular canceled per request of critical care team. Monitor fluid and electrolytes. (2) Hyperkalemia Code(s): E87.5 - Hyperkalemia Status: Acute Plan: Resolved after dialysis. (3) Acute metabolic encephalopathy Code(s): G93.41 - Metabolic encephalopathy Status: Acute (4) Acute hypoxemic respiratory failure Code(s): J96.01 - Acute respiratory failure with hypoxia Status: Acute Plan: s/p extubation. On O2 face mask. (5) Septic shock Code(s): A41.9 - Sepsis, unspecified organism; R65.21 - Severe sepsis with septic shock Status: Resolved Plan: On broad-spectrum antibiotic. ID on the case. <Nehemiah Reyes - Last Filed: 04/20/18 16:00> - Assessment (1) ESRD (end stage renal disease) Code(s): N18.6 - End stage renal disease Status: Chronic (2) Hyperkalemia Code(s): E87.5 - Hyperkalemia Status: Acute (3) Acute metabolic encephalopathy Code(s): G93.41 - Metabolic encephalopathy Status: Acute (4) Acute hypoxemic respiratory failure Code(s): J96.01 - Acute respiratory failure with hypoxia Status: Acute (5) Septic shock Code(s): A41.9 - Sepsis, unspecified organism; R65.21 - Severe sepsis with septic shock Status: Resolved - Attending Attestation patient was seen and examined. She is having GI bleeding. Underwent bleeding scan. GI on the case. Patient receiving blood transfusion. Prognosis is poor. Dialysis tomorrow. Patient is on Zosyn for cholecystitis. <Blake Michel - Last Filed: 04/20/18 21:15>
[2018-04-20] MEDS: Chlorhexidine 0.12% Oral Kit 15 ML UDC OROPHARYNG SCH ×2 (17:09→21:14)
[2018-04-20] MEDS: Pantoprazole Inj 80 MG in Sodium Chlor 0.9% Inj 100 ML IV.CONT SCH (17:10)
[2018-04-20] MEDS: Mupirocin 2% Nasal Oint Topical Syringe EACH NARE SCH ×2 (17:10→21:14)
[2018-04-20] MEDS ORDERED: PEG 3350/E-Lyte Soln 4000 ML Bottle PO ONE (18:00)
[2018-04-20 20:19] LABS: Hematocrit 27.7 % (35.0-46.0); Hemoglobin 9.5 gm/dL (11.6-15.3)
[2018-04-21] MEDS: fentaNYL Citrate Inj 100 MCG/2 ML Ampul IV.PUSH PRN ×6 (00:55→21:52)
[2018-04-21] MEDS: Pantoprazole Inj 80 MG in Sodium Chlor 0.9% Inj 100 ML IV.CONT SCH ×3 (02:07→15:46)
[2018-04-21] MEDS: Insulin NovoLOG Aspart Correctional Sugar Inj SQ SCH ×4 (02:08→17:17)
[2018-04-21] MEDS: Oral Hygiene Kit OROPHARYNG SCH ×4 (02:08→16:28)
[2018-04-21] MEDS: Dextrose 5%/NaCl 0.9% Inj 1,000 ML IV.CONT SCH (02:16)
[2018-04-21] MEDS: Piperacil/Tazo 2.25 GM Premix 50 ML IV.SIG SCH ×4 (02:16→21:29)
[2018-04-21] MEDS: Artificial Tears Opth Drops 15 ML Bottle EACH EYE SCH ×2 (02:17→14:12)
[2018-04-21 04:12] LABS: Baso # (Auto) 0.1 th/mm3 (0.0-0.2); Baso % (Auto) 0.7 % (0.0-2.0); Eos % (Auto) 0.2 % (0.0-4.0); Hematocrit 24.8 % (35.0-46.0); Hemoglobin 8.4 gm/dL (11.6-15.3); Lymph # (Auto) 1.7 th/mm3 (1.0-4.8); Lymph % (Auto) 15.4 % (9.0-44.0); Mean Corpuscular HGB Conc 33.8 % (32.0-36.0); Mean Corpuscular Hemoglobin 30.9 pg (27.0-34.0); Mean Corpuscular Volume 91.3 fL (80.0-100.0); Mean Platelet Volume 9.4 fL (7.0-11.0); Mono # (Auto) 1.1 th/mm3 (0.0-0.9); Mono % (Auto) 9.7 % (0.0-8.0); Neut # (Auto) 8.3 th/mm3 (1.8-7.7); Platelet Count 188 th/mm3 (150-450); Red Blood Count 2.71 mil/mm3 (4.00-5.30); Red Cell Distribution Width 20.6 % (11.6-17.2); White Blood Count 11.2 th/mm3 (4.0-11.0)
[2018-04-21 04:25] LABS: Activated Partial Thrombo Time 31.1 sec (23.4-31.7); INR 1.4 Ratio; Prothrombin Time 13.9 sec (9.8-11.6)
[2018-04-21 04:48] LABS: Lymphocytes 15 % (9-44); Metamyelocytes 1 % (0-1); Monocytes 6 % (0-8); Myelocytes 2 % (0-0)
[2018-04-21 04:49] LABS: Platelet Estimate Normal (Normal); Platelet Morphology Normal (Normal)
[2018-04-21 05:12] LABS: Potassium 3.5 meq/L (3.5-5.1)
[2018-04-21 05:13] LABS: Calcium 6.7 mg/dL (8.5-10.1); Carbon Dioxide 25.1 meq/L (21.0-32.0); Magnesium 1.9 mg/dL (1.5-2.5); Phosphorus 8.7 mg/dL (2.5-4.9)
[2018-04-21 05:15] LABS: Total Protein 6.1 g/dL (6.4-8.2)
[2018-04-21] MEDS: Chlorhexidine 0.12% Oral Kit 15 ML UDC OROPHARYNG SCH (08:16)
[2018-04-21] MEDS: dilTIAZem 30 MG Tablet PO SCH ×4 (08:17→21:30)
[2018-04-21] MEDS: Mupirocin 2% Nasal Oint Topical Syringe EACH NARE SCH ×2 (08:17→21:30)
[2018-04-21] MEDS: Calcium Acetate 667 MG Capsule NG/OG SCH ×4 (08:18→17:27)
[2018-04-21] MEDS: Albumin Human 25% Inj 100 ML IV.SIG PRN (09:15)
--- NOTE | 2018-04-21 09:47 | P.PNNP ---
Subjective Interval history: Patient is alert, has bleeding per rectal, no abd. pain. Physical Exam Vital signs: Vital Signs 04/20/18 12:00 04/20/18 14:40 04/20/18 14:48 Temperature 100.4 F H 98.0 F Pulse Rate 86 86 87 Respiratory Rate 21 14 Blood Pressure 147/60 H 172/67 H Pulse Oximetry 94 L 04/20/18 16:00 04/20/18 16:15 04/20/18 16:30 Temperature 100.8 F H 99.4 F 99.4 F Pulse Rate 83 85 86 Respiratory Rate 16 20 20 Blood Pressure 178/72 H 178/72 H 196/85 H Pulse Oximetry 96 96 04/20/18 16:45 04/20/18 16:58 04/20/18 17:00 Temperature 99.4 F Pulse Rate 84 82 Respiratory Rate 18 21 Blood Pressure 156/70 H 203/77 H Pulse Oximetry 95 96 04/20/18 17:01 04/20/18 17:05 04/20/18 17:15 Temperature Pulse Rate 83 83 83 Respiratory Rate 18 21 22 Blood Pressure 156/70 H 173/70 H 183/67 H Pulse Oximetry 95 96 96 04/20/18 17:30 04/20/18 17:50 04/20/18 18:00 Temperature Pulse Rate 83 83 82 Respiratory Rate 21 23 20 Blood Pressure 204/74 H 149/62 H 167/67 H Pulse Oximetry 97 96 96 04/20/18 18:15 04/20/18 18:30 04/20/18 18:45 Temperature Pulse Rate 82 79 81 Respiratory Rate 14 20 22 Blood Pressure 184/72 H 196/74 H 203/79 H Pulse Oximetry 96 98 98 04/20/18 19:00 04/20/18 19:15 04/20/18 19:23 Temperature Pulse Rate 80 79 78 Respiratory Rate 21 19 18 Blood Pressure 146/64 H Pulse Oximetry 97 96 04/20/18 19:27 04/20/18 19:30 04/20/18 19:45 Temperature Pulse Rate 79 81 Respiratory Rate 13 15 Blood Pressure 156/60 H 168/63 H Pulse Oximetry 95 96 96 04/20/18 20:00 04/20/18 20:01 04/20/18 20:15 Temperature Pulse Rate 81 86 79 Respiratory Rate 20 19 12 Blood Pressure 179/81 H 215/76 H Pulse Oximetry 96 98 96 04/20/18 20:45 04/20/18 21:00 04/20/18 21:15 Temperature Pulse Rate 80 81 78 Respiratory Rate 17 15 11 L Blood Pressure 148/66 H 149/61 H 158/65 H Pulse Oximetry 96 95 97 04/20/18 22:00 04/20/18 23:00 04/20/18 23:08 Temperature Pulse Rate 77 74 72 Respiratory Rate 18 4 L 18 Blood Pressure Pulse Oximetry 98 96 04/20/18 23:15 04/20/18 23:30 04/20/18 23:45 Temperature Pulse Rate 72 72 72 Respiratory Rate 10 L 11 L 12 Blood Pressure 144/64 H 169/65 H 170/65 H Pulse Oximetry 85 L 91 L 98 04/21/18 00:00 04/21/18 01:00 04/21/18 02:00 Temperature Pulse Rate 73 67 62 Respiratory Rate 13 16 12 Blood Pressure 176/66 H 142/58 H Pulse Oximetry 97 99 100 04/21/18 02:08 04/21/18 03:00 04/21/18 04:00 Temperature Pulse Rate 61 59 L Respiratory Rate 16 16 15 Blood Pressure Pulse Oximetry 100 97 04/21/18 07:36 Temperature Pulse Rate 59 L Respiratory Rate 20 Blood Pressure Pulse Oximetry 100 Intake & Output 04/20/18 04/21/18 04/21/18 18:59 06:59 18:59 Intake Total 100 / 100 5335 / 5335 100 / 100 Output Total 0 / 0 Balance 100 / 100 5335 / 5335 100 / 100 Weight 68 kg Intake: IV 100 / 100 1335 / 1335 100 / 100 D5W/Normal Saline Inj 1,000 ML 1000 / 1000 @ 42 mls/hr IV.CONT .[id number] [facility] Rx#:[id number] Protonix Inj 80 MG In NS Inj 200 / 200 100 ML @ 10 mls/hr IV.CONT Q10H [facility] Rx#:[id number] Flexbumin 25% Inj 100 ML @ 60 100 / 100 mls/hr IV.SIG WITH DIALYSIS PRN Rx#:[id number] Zosyn 2.25 GM Premix 50 ML @ 100 / 100 100 / 100 100 mls/hr IV.SIG Q6H [facility] Rx#: [id number] Oral 0 / 0 Water Bolus Amount 4000 / 4000 Intake (Blood Product) Amt 0 / 0 0 / 0 Rbc As-3 Leukoreduced Unit 0 / 0 0 / 0 [id number] Rbc As-3 Leukoreduced Unit 0 / 0 [id number] Output: Urine 0 / 0 Other: Date of Last Bowel Movement 04/20/18 04/21/18 # Incontinent Bowel Movements 12 Narrative: GENERAL: Well-nourished, not in distress. SKIN: Warm and dry. HEAD: Normocephalic. EYES: No scleral icterus. No injection or drainage. NECK: Supple, trachea midline. No JVD or lymphadenopathy. CARDIOVASCULAR: Regular rate and rhythm without murmurs, gallops, or rubs. RESPIRATORY: Breath sounds equal bilaterally. No accessory muscle use. GASTROINTESTINAL: Abdomen soft, nondistended. EXTREMITIES: Mild edema. Fistula left arm, left hand is cold NEUROLOGICAL: Alert, and oriented. - Urinary Catheter Management Indwelling Urethral Catheter Cath placed during this visit: yes, but has since been removed by the nurse Reason for continuing: Hourly intake/output Insertion date: 04/14/18 Insertion time: 10:35 Removal date: 04/14/18 Removal time: 17:30 Assessment and Plan - Assessment (1) ESRD (end stage renal disease) Code(s): N18.6 - End stage renal disease Status: Chronic Plan: Patient gets dialysis TTS. Patient to be dialyzed today. L arm AVF, avoid blood pressure or blood draws in left arm. 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 Left upper extremity AV fistula , with possible steal, vascular follow up noted. Monitor fluid and electrolytes. GI following and will have colonoscopy today. (2) Hyperkalemia Code(s): E87.5 - Hyperkalemia Status: Acute Plan: Resolved after dialysis. (3) Acute metabolic encephalopathy Code(s): G93.41 - Metabolic encephalopathy Status: Acute (4) Acute hypoxemic respiratory failure Code(s): J96.01 - Acute respiratory failure with hypoxia Status: Acute Plan: s/p extubation. On O2 face mask. (5) Septic shock Code(s): A41.9 - Sepsis, unspecified organism; R65.21 - Severe sepsis with septic shock Status: Resolved Plan: On broad-spectrum antibiotic. ID on the case.
--- NOTE | 2018-04-21 10:32 | P.PNCC ---
Subjective Subjective Remarks/Hospital Course: Patient is a 72-year-old female with past medical history significant for previous strokes, TIA, end-stage renal disease on hemodialysis (Monday, Monday schedule), Left AV fistula on 01/2018, type 2 diabetes, and hypertension. EMS was called as her roommate found her unresponsive last seen normal yesterday night. IV 0.4 mg of Narcan was given without any response. Patient was intubated in the emergency department for airway protection, for a GCS 8. Lab work showed leukocytosis of 12,500 with a left shift of 90% neutrophilia, 29% bands. Lactic acid came back at 6. CMP showed potassium of 6.0 bicarb of 16.7, anion gap of 24, liver enzymes were markedly elevated AST 1992 ALT 758, CPK 475, troponin 5.21. EKG did not show any evidence of acute ST elevation. ABG shows pH of 7.19 PCO2 of 48 PaO2 of [address] abdomen pelvis showed distended gallbladder with cholelithiasis, also small amount of air in the fundus of the gallbladder. Critical care medicine was consulted for admission. I evaluated the patient in the emergency department. She is acutely ill critical appearing. Intermittently hypotensive. Dr. Vargas has placed a left subclavian central line. I will start Levophed if needed. Patient received Zosyn and Flagyl in the ED. I will place patient on vancomycin and Zosyn renally dosed. Pierre cultures have been sent. With the CT finding I contacted Dr. Cortes who requested stat ultrasound of the right upper quadrant. Also ID was consulted and I discussed with Dr. Montaño. Patient has healed scars probably few week old laparoscopic abdominal surgery, it is unclear what kind of surgery she had. Dr. Fermin consulted for an STEMI. Nephrology Dr. Gillette consulted for emergent hemodialysis 04/15 -T-max 101. Remains on broad-spectrum antibiotics. Noted cool left fingers not cyanotic but will check fistula Doppler and arterial Dopplers and venous Doppler left upper extremity. Central line placed left subclavian noted. 04/16: T-max 100.5. MRCP pending. Right upper lower extremity and left lower extremity remains warm. Cool left upper extremity. Has seen Dr. Wu for her left AV fistula in the past. Positive dopplerable/patent left AV fistula noted by Doppler 04/15. Downward trending liver function test. 04/17: Afebrile. Patient received 2 doses of digoxin due to A. fib with RVR. Currently normal sinus rhythm. Hypoglycemic overnight requiring D5 normal saline currently at 42 cc an hour. Off all vasopressors. Remains in normal sinus rhythm. Cardiology recommended IV diltiazem for paroxysmal atrial fibrillation. Will order. MRCP result results noted. 04/18: Afebrile. Patient extubated yesterday without complication. Currently resting on simple mask playing of pain but unknown source. Noted vascular surgery's note. 04/19: Afebrile. Remains on nasal cannula. More alert and interactive today. Will start tube feeds today. Speech evaluation for swallowing. Currently afebrile. No bowel movement. 04/20: Overnight, patient with several bright red problems per rectum. Continues to start on IV pantoprazole twice daily. Hemoglobin currently 7.4. Transfusing 2 units PRBCs now and sent for stat nuclear medicine bleeding scan. Patient appears to be hemodynamically stable but is very pale. Was plan for ligation of the left upper extremity AV fistula by vascular surgery but this will be placed on hold. Continues to moan in the room. Subjective 04/21: Negative bleeding scan overnight. Hemoglobin currently 8.4 after 2 units PRBCs. Actively undergoing hemodialysis currently. Plan for EGD and colonoscopy in the next 24-48 hours. Recheck hemoglobin at 1800 hrs. tonight.. She is much more lucid and interactive today. Objective Vital Signs / I&O: Vital Signs 04/20/18 12:00 04/20/18 14:40 04/20/18 14:48 Temperature 100.4 F H 98.0 F Pulse Rate 86 86 87 Respiratory Rate 21 14 Blood Pressure 147/60 H 172/67 H Pulse Oximetry 94 L 04/20/18 16:00 04/20/18 16:15 04/20/18 16:30 Temperature 100.8 F H 99.4 F 99.4 F Pulse Rate 83 85 86 Respiratory Rate 16 20 20 Blood Pressure 178/72 H 178/72 H 196/85 H Pulse Oximetry 96 96 04/20/18 16:45 04/20/18 16:58 04/20/18 17:00 Temperature 99.4 F Pulse Rate 84 82 Respiratory Rate 18 21 Blood Pressure 156/70 H 203/77 H Pulse Oximetry 95 96 04/20/18 17:01 04/20/18 17:05 04/20/18 17:15 Temperature Pulse Rate 83 83 83 Respiratory Rate 18 21 22 Blood Pressure 156/70 H 173/70 H 183/67 H Pulse Oximetry 95 96 96 04/20/18 17:30 04/20/18 17:50 04/20/18 18:00 Temperature Pulse Rate 83 83 82 Respiratory Rate 21 23 20 Blood Pressure 204/74 H 149/62 H 167/67 H Pulse Oximetry 97 96 96 04/20/18 18:15 04/20/18 18:30 04/20/18 18:45 Temperature Pulse Rate 82 79 81 Respiratory Rate 14 20 22 Blood Pressure 184/72 H 196/74 H 203/79 H Pulse Oximetry 96 98 98 04/20/18 19:00 04/20/18 19:15 04/20/18 19:23 Temperature Pulse Rate 80 79 78 Respiratory Rate 21 19 18 Blood Pressure 146/64 H Pulse Oximetry 97 96 04/20/18 19:27 04/20/18 19:30 04/20/18 19:45 Temperature Pulse Rate 79 81 Respiratory Rate 13 15 Blood Pressure 156/60 H 168/63 H Pulse Oximetry 95 96 96 04/20/18 20:00 04/20/18 20:01 04/20/18 20:15 Temperature Pulse Rate 81 86 79 Respiratory Rate 20 19 12 Blood Pressure 179/81 H 215/76 H Pulse Oximetry 96 98 96 04/20/18 20:45 04/20/18 21:00 04/20/18 21:15 Temperature Pulse Rate 80 81 78 Respiratory Rate 17 15 11 L Blood Pressure 148/66 H 149/61 H 158/65 H Pulse Oximetry 96 95 97 04/20/18 22:00 04/20/18 23:00 04/20/18 23:08 Temperature Pulse Rate 77 74 72 Respiratory Rate 18 4 L 18 Blood Pressure Pulse Oximetry 98 96 04/20/18 23:15 04/20/18 23:30 04/20/18 23:45 Temperature Pulse Rate 72 72 72 Respiratory Rate 10 L 11 L 12 Blood Pressure 144/64 H 169/65 H 170/65 H Pulse Oximetry 85 L 91 L 98 04/21/18 00:00 04/21/18 01:00 04/21/18 02:00 Temperature Pulse Rate 73 67 62 Respiratory Rate 13 16 12 Blood Pressure 176/66 H 142/58 H Pulse Oximetry 97 99 100 04/21/18 02:08 04/21/18 03:00 04/21/18 04:00 Temperature Pulse Rate 61 59 L Respiratory Rate 16 16 15 Blood Pressure Pulse Oximetry 100 97 04/21/18 07:36 04/21/18 08:00 04/21/18 09:00 Temperature 97.8 F Pulse Rate 59 L 62 64 Respiratory Rate 20 12 Blood Pressure 143/59 H Pulse Oximetry 100 99 Intake & Output 04/20/18 04/21/18 04/21/18 18:59 06:59 18:59 Intake Total 100 / 100 5335 / 5335 100 / 100 Output Total 0 / 0 Balance 100 / 100 5335 / 5335 100 / 100 Weight 68 kg Intake: IV 100 / 100 1335 / 1335 100 / 100 D5W/Normal Saline Inj 1,000 ML 1000 / 1000 @ 42 mls/hr IV.CONT .[id number] [facility] Rx#:[id number] Protonix Inj 80 MG In NS Inj 200 / 200 100 ML @ 10 mls/hr IV.CONT Q10H [facility] Rx#:[id number] Flexbumin 25% Inj 100 ML @ 60 100 / 100 mls/hr IV.SIG WITH DIALYSIS PRN Rx#:[id number] Zosyn 2.25 GM Premix 50 ML @ 100 / 100 100 / 100 100 mls/hr IV.SIG Q6H [facility] Rx#: [id number] Oral 0 / 0 Water Bolus Amount 4000 / 4000 Intake (Blood Product) Amt 0 / 0 0 / 0 Rbc As-3 Leukoreduced Unit 0 / 0 0 / 0 [id number] Rbc As-3 Leukoreduced Unit 0 / 0 [id number] Output: Urine 0 / 0 Other: Date of Last Bowel Movement 04/20/18 04/21/18 04/21/18 # Incontinent Bowel Movements 12 Result Diagrams: 04/21/18 03:28 04/21/18 03:28 Other Results: Microbiology 04/15/18 13:55 Blood - Peripheral Aerobic Blood Culture - Final No growth in 5 days 04/15/18 13:55 Blood - Peripheral Anaerobic Blood Culture - Final No growth in 5 days 04/15/18 11:30 Blood - Line Aerobic Blood Culture - Final No growth in 5 days 04/15/18 11:30 Blood - Line Anaerobic Blood Culture - Final No growth in 5 days 04/14/18 10:20 Blood - Peripheral Aerobic Blood Culture - Final No growth in 5 days 04/14/18 10:20 Blood - Peripheral Anaerobic Blood Culture - Final No growth in 5 days 04/14/18 10:25 Blood - Peripheral Aerobic Blood Culture - Final No growth in 5 days 04/14/18 10:25 Blood - Peripheral Anaerobic Blood Culture - Final No growth in 5 days 04/14/18 15:15 Sputum - Endotracheal Gram Stain - Final 04/14/18 15:15 Sputum - Endotracheal Sputum Culture - Final Heavy growth normal respiratory black 04/14/18 10:35 Clean Catch Urine Urine Culture - Final No growth in 48 hours Imaging: ITS Impressions Head CT 04/14/18 09:44 CONCLUSION: 1. 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 2. No evidence of acute infarct, hemorrhage, mass or edema. 3. No significant change compared to 04/12/2017. . Abdomen/Pelvis CT 04/14/18 10:59 CONCLUSION: 1. Distended gallbladder with cholelithiasis and minimal gas in the fundus. There is no significant pericholecystic fluid or inflammation. 2. Simple left renal cyst. 3. Bibasilar airspace disease. Liver Ultrasound 04/14/18 12:44 CONCLUSION: 1. Gallbladder contains sludge and stones. However, no additional findings are present to definitively indicate acute cholecystitis. 2. Common bile duct is enlarged but contains no visible stone. Given the pain one could consider MRCP for further evaluation of the common duct stone as a cause for the duct dilatation in right upper quadrant pain. 3. Atrophic right kidney with changes suggesting chronic medical renal disease. There is a complex cystic lesion in the mid kidney and renal sinus measuring up to 3.5 cm. At some point ideally be further characterized with renal protocol MRI with and without intravenous contrast. This should be performed on an elective basis when condition permits. Extremity Arterial Study 04/15/18 00:00 CONCLUSION: 1. Significantly limited examination due to unobtainable pressures in the forearms bilaterally. 2. Unobtainable pressures and absence of waveforms in the left hand. Cannot exclude steal from patient's left upper extremity brachiobasilic fistula. Upper Extremity Ultrasound 04/15/18 00:00 CONCLUSION: Patent left AV fistula. Venous Doppler Study 04/15/18 00:00 CONCLUSION: No evidence of DVT. Cholangiopancreatography MRI 04/16/18 07:10 CONCLUSION: 1. Cholelithiasis with multiple small gallstones layering dependently. There is no gallbladder wall thickening or inflammatory change. No gas is visualized on the MRI. 2. Common bile duct measuring up to 1 cm with no filling defects or mass. This could represent distal obstruction or prior passage of stones. 3. Multiple benign-appearing small cystic structures in the pancreas. 4. Bilateral simple renal cysts as well as a more complex right parapelvic cyst. GI Bleed Scan Nuclear Medicine 04/20/18 00:00 CONCLUSION: 1. Negative for gastrointestinal hemorrhage. Chest X-Ray 04/20/18 06:00 CONCLUSION: Mild consolidation or atelectasis at the medial right base which appears to be improving. Objective Remarks: GENERAL: 72-year-old female currently on nasal cannula appears in no acute distress SKIN: Warm and dry with the exception of cool peripheral fingers left upper extremity dopplerable pulses. HEAD: Atraumatic. Normocephalic. EYES: Pupils equal and round about 2 mm bilaterally and reactive. No scleral icterus. No injection or drainage. ENT: No nasal bleeding or discharge. Mucous membranes pink and moist. NECK: Trachea midline. No JVD. CARDIOVASCULAR: Regular rate and rhythm. S1, S2. No S4. No appreciable murmur RESPIRATORY: Few fine crackles appreciated bilaterally anteriorly posteriorly. No wheezing GASTROINTESTINAL: Abdomen soft, slight right upper quadrant-tender, nondistended. Hepatic and splenic margins not palpable. Hypoactive bowel sounds appreciated. MUSCULOSKELETAL: Extremities without clubbing, cyanosis, or edema. Left AV fistula positive thrill. Patient has a tunneled right IJ Hemovac catheter NEUROLOGICAL: Currently arousable and follows commands. Weak left upper extremity compared to the right. Assessment and Plan - Problem List (1) Acute metabolic encephalopathy Code(s): G93.41 - Metabolic encephalopathy Status: Acute (2) Acute hypoxemic respiratory failure Code(s): J96.01 - Acute respiratory failure with hypoxia Status: Acute (3) Septic shock Code(s): A41.9 - Sepsis, unspecified organism; R65.21 - Severe sepsis with septic shock Status: Resolved (4) Lactic acidosis Code(s): E87.2 - Acidosis Status: Acute (5) Non-ST elevated myocardial infarction (non-STEMI) Code(s): I21.4 - Non-ST elevation (NSTEMI) myocardial infarction Status: Acute (6) UTI (urinary tract infection) Code(s): N39.0 - Urinary tract infection, site not specified Status: Acute (7) Liver enzyme elevation Code(s): R74.8 - Abnormal levels of other serum enzymes Status: Acute (8) Emphysematous cholecystitis Code(s): K81.0 - Acute cholecystitis Status: Acute (9) Hyperkalemia Code(s): E87.5 - Hyperkalemia Status: Acute (10) ESRD (end stage renal disease) Code(s): N18.6 - End stage renal disease Status: Chronic (11) HTN (hypertension) Code(s): I10 - Essential (primary) hypertension Status: Chronic (12) Diabetes Code(s): E11.9 - Type 2 diabetes mellitus without complications Status: Chronic (13) GERD (gastroesophageal reflux disease) Code(s): K21.9 - Gastro-esophageal reflux disease without esophagitis Status: Chronic (14) Stroke Code(s): I63.9 - Cerebral infarction, unspecified Status: Chronic (15) TIA (transient ischemic attack) Code(s): G45.9 - Transient cerebral ischemic attack, unspecified Status: Chronic - Assessment and Plan Plan: NEURO/PSYCH: Acute metabolic encephalopathy Old small bilateral cerebellar infarcts. -Encephalopathy seems to be metabolic secondary to severe sepsis -CT of the head shows old bilateral cerebellar strokes, and nothing acute. -As needed fentanyl 25 mcg every 3 hours as needed pain RESP: Acute hypoxemic respiratory failure -Intubated in the emergency department for lack of airway protection and hypoxia -Extubated 04/17 -Simple mask/nasal cannula maintain saturations greater than equal to 90%. Wean as tolerated -albuterol/ipratropium aerosols every 4 hours with albuterol aerosols every 2 hours as needed -Incentive spirometry while -Head of bed at 30 degrees -Chest x-ray in a.m. 04/22 CV: NSTEMI likely type II Paroxysmal atrial fibrillation with 2 1 AV conduction Hypotension Lactic acidosis History of hypertension -GI bleeding currently holding aspirin 81 mg daily -Cardiology Dr. Fermin consulted NSTEMI most likely type II from sepsis -Hold all home antihypertensives (hold nifedipine, clonidine, hydralazine and Lasix) -Cardiology recommended diltiazem 30 mg 4 times daily and carvedilol 3.125 mg twice daily -2d echocardiogram revealed normal left ventricular size. EF 65-70%. Left lipomatous atrial septum,. Trace MR/TR GI: Markedly elevated liver enzymes Probable emphysematous cholecystitis History of GERD -N.p.o Per GI. -Currently on pantoprazole drip at 8 mg an hour -Holding Nepro at 40 cc an hour goal. -Speech eval for swallow.-Failed 04/19 -CT abdomen pelvis shows small amount of air in the fundus of the gallbladder, this is concerning for emphysematous cholecystitis given clinical picture -Stat consult to general surgery and discussed with Dr. Cortes. Recommended conservative therapy at the present time. -Dr. Cortes/general surgery and gastroenterology signed off MRCP -04/16 - cholelithiasis with multiple small gallstones layering dependently. There is no gallbladder wall thickening or inflammatory change. No gas is visualized on the MRI. Common bile duct measuring up to 1 cm with no filling defects or mass. This could represent distal obstruction or prior passage of stones. Multiple benign-appearing small cystic structures in the pancreas. Bilateral simple renal cysts as well as a more complex right parapelvic cyst. -Possible ERCP. LFTs very slowly trending downward -GI signed off. Reconsult with lower GI bleed -With bright red blood per rectum we will nuclear medicine bleeding scan was - -GI for EGD and colonoscopy Renal/: End-stage renal disease -Monitor renal function closely. -Dr. Gillette consulted for emergent hemodialysis on 04/14. Dialyzed 04/21 -Monitor urine output accurate I's and O's ID: Septic shock Probable emphysematous cholecystitis Possible UTI -Antibiotics with piperacillin/tazobactam. Discontinued vancomycin 04/16 -Infectious disease continues to follow and general surgery consulted. -Follow-up blood urine and sputum cultures no growth to date HEME: Normocytic anemia Leukocytosis -Monitor CBC, coags. Check coags now -Receiving 2 units PRBCs on 04/20. Recheck at 1800 hrs. today ENDO/FEN: Hyperphosphatemia Hypernatremia Type 2 diabetes -Sliding scale insulin -We will start on calcium acetate stable MSK Cyanosis left upper extremity Followed by Dr. Wu. Plan AV fistula ligation 04/20 but on hold due to lower GI bleed PROPH: -Bilateral lower extremity SCDs. Heparin sq/omeprazole LINES: -Utilize peripheral IVs, left subclavian central line day #5 with left femoral arterial line day #3 both discontinued 04/18 Level 3 follow-up (6) UTI (urinary tract infection) Qualifiers: Urinary tract infection type: site unspecified Hematuria presence: without hematuria Qualified Code(s): N39.0 - Urinary tract infection, site not specified (11) HTN (hypertension) Qualifiers: Hypertension type: unspecified Qualified Code(s): I10 - Essential (primary) hypertension (12) Diabetes Qualifiers: Diabetes mellitus type: other specified (including YOVANI) Diabetes mellitus long term care administrator insulin use: unspecified [facility] insulin use status Diabetes mellitus complication status: with unspecified complications Qualified Code(s) : E13.8 - Other specified diabetes mellitus with unspecified complications (13) GERD (gastroesophageal reflux disease) Qualifiers: Esophagitis presence: esophagitis presence not specified Qualified Code(s): K21.9 - Gastro-esophageal reflux disease without esophagitis (14) Stroke Qualifiers: CVA mechanism: unspecified Qualified Code(s): I63.9 - Cerebral infarction, unspecified
[2018-04-21] MEDS ORDERED: Phytonadione 2.5 MG/SWFI 2.5 ML Oral Syringe PO ONE (11:00)
--- NOTE | 2018-04-21 11:02 | P.PNVS ---
Subjective Subjective/Hospital Course: Clinically stable Objective Vital Signs / I&O: Vital Signs 04/20/18 12:00 04/20/18 14:40 04/20/18 14:48 Temperature 100.4 F H 98.0 F Pulse Rate 86 86 87 Respiratory Rate 21 14 Blood Pressure 147/60 H 172/67 H Pulse Oximetry 94 L 04/20/18 16:00 04/20/18 16:15 04/20/18 16:30 Temperature 100.8 F H 99.4 F 99.4 F Pulse Rate 83 85 86 Respiratory Rate 16 20 20 Blood Pressure 178/72 H 178/72 H 196/85 H Pulse Oximetry 96 96 04/20/18 16:45 04/20/18 16:58 04/20/18 17:00 Temperature 99.4 F Pulse Rate 84 82 Respiratory Rate 18 21 Blood Pressure 156/70 H 203/77 H Pulse Oximetry 95 96 04/20/18 17:01 04/20/18 17:05 04/20/18 17:15 Temperature Pulse Rate 83 83 83 Respiratory Rate 18 21 22 Blood Pressure 156/70 H 173/70 H 183/67 H Pulse Oximetry 95 96 96 04/20/18 17:30 04/20/18 17:50 04/20/18 18:00 Temperature Pulse Rate 83 83 82 Respiratory Rate 21 23 20 Blood Pressure 204/74 H 149/62 H 167/67 H Pulse Oximetry 97 96 96 04/20/18 18:15 04/20/18 18:30 04/20/18 18:45 Temperature Pulse Rate 82 79 81 Respiratory Rate 14 20 22 Blood Pressure 184/72 H 196/74 H 203/79 H Pulse Oximetry 96 98 98 04/20/18 19:00 04/20/18 19:15 04/20/18 19:23 Temperature Pulse Rate 80 79 78 Respiratory Rate 21 19 18 Blood Pressure 146/64 H Pulse Oximetry 97 96 04/20/18 19:27 04/20/18 19:30 04/20/18 19:45 Temperature Pulse Rate 79 81 Respiratory Rate 13 15 Blood Pressure 156/60 H 168/63 H Pulse Oximetry 95 96 96 04/20/18 20:00 04/20/18 20:01 04/20/18 20:15 Temperature Pulse Rate 81 86 79 Respiratory Rate 20 19 12 Blood Pressure 179/81 H 215/76 H Pulse Oximetry 96 98 96 04/20/18 20:45 04/20/18 21:00 04/20/18 21:15 Temperature Pulse Rate 80 81 78 Respiratory Rate 17 15 11 L Blood Pressure 148/66 H 149/61 H 158/65 H Pulse Oximetry 96 95 97 04/20/18 22:00 04/20/18 23:00 04/20/18 23:08 Temperature Pulse Rate 77 74 72 Respiratory Rate 18 4 L 18 Blood Pressure Pulse Oximetry 98 96 04/20/18 23:15 04/20/18 23:30 04/20/18 23:45 Temperature Pulse Rate 72 72 72 Respiratory Rate 10 L 11 L 12 Blood Pressure 144/64 H 169/65 H 170/65 H Pulse Oximetry 85 L 91 L 98 04/21/18 00:00 04/21/18 01:00 04/21/18 02:00 Temperature Pulse Rate 73 67 62 Respiratory Rate 13 16 12 Blood Pressure 176/66 H 142/58 H Pulse Oximetry 97 99 100 04/21/18 02:08 04/21/18 03:00 04/21/18 04:00 Temperature Pulse Rate 61 59 L Respiratory Rate 16 16 15 Blood Pressure Pulse Oximetry 100 97 04/21/18 07:36 04/21/18 08:00 04/21/18 09:00 Temperature 97.8 F Pulse Rate 59 L 62 64 Respiratory Rate 20 12 Blood Pressure 143/59 H Pulse Oximetry 100 99 Intake & Output 04/20/18 04/21/18 04/21/18 18:59 06:59 18:59 Intake Total 100 / 100 5335 / 5335 150 / 150 Output Total 0 / 0 2500 / 2500 Balance 100 / 100 5335 / 5335 -2350 / -2350 Weight 68 kg Intake: IV 100 / 100 1335 / 1335 150 / 150 D5W/Normal Saline Inj 1,000 ML 1000 / 1000 @ 42 mls/hr IV.CONT .[id number] [facility] Rx#:[id number] Protonix Inj 80 MG In NS Inj 200 / 200 100 ML @ 10 mls/hr IV.CONT Q10H [facility] Rx#:[id number] Flexbumin 25% Inj 100 ML @ 60 100 / 100 mls/hr IV.SIG WITH DIALYSIS PRN Rx#:[id number] Zosyn 2.25 GM Premix 50 ML @ 100 / 100 100 / 100 50 / 50 100 mls/hr IV.SIG Q6H [facility] Rx#: [id number] Oral 0 / 0 Water Bolus Amount 4000 / 4000 Intake (Blood Product) Amt 0 / 0 0 / 0 Rbc As-3 Leukoreduced Unit 0 / 0 0 / 0 [id number] Rbc As-3 Leukoreduced Unit 0 / 0 [id number] Output: Urine 0 / 0 Hemodialysis Amount 2500 / 2500 Other: Date of Last Bowel Movement 04/20/18 04/21/18 04/21/18 # Incontinent Bowel Movements 12 Physical Exam: Left hand viable. Multiphasic radial signal Laboratory Results - last 24 hr 04/20/18 04/20/18 04/20/18 07:11 15:58 20:12 WBC RBC Hgb 9.5 L D Hct 27.7 L MCV MCH MCHC RDW Plt Count MPV Prelim Diff (Auto) Neut % (Auto) Lymph % (Auto) [place] % (Auto) Eos % (Auto) Baso % (Auto) Neut # (Auto) Lymph # (Auto) [place] # (Auto) Eos # (Auto) Baso # (Auto) WBC Differential Seg Neuts % (Manual) Band Neuts % (Manual) Lymphocytes % (Manual) Monocytes % (Manual) Metamyelocytes % (Man) Myelocytes % (Man) Abs Neuts (Manual) Differential Comment Platelet Estimate Platelet Morphology PT INR APTT Sodium Potassium Chloride Carbon Dioxide Anion Gap BUN Creatinine Estimated GFR POC Glucose 176 H Random Glucose Calcium Calcium Adj for Albumin Phosphorus Magnesium Total Bilirubin AST ALT Alkaline Phosphatase Total Protein Albumin Blood Type O Negative Blood Type Recheck Required Antibody Screen Negative MTS Gel Crossmatch See Detail 04/21/18 04/21/18 04/21/18 03:28 03:28 03:28 WBC 11.2 H RBC 2.71 L Hgb 8.4 L Hct 24.8 L MCV 91.3 D MCH 30.9 MCHC 33.8 RDW 20.6 H Plt Count 188 MPV 9.4 Prelim Diff (Auto) Slide review pending Neut % (Auto) 74.0 H Lymph % (Auto) 15.4 [place] % (Auto) 9.7 H Eos % (Auto) 0.2 Baso % (Auto) 0.7 Neut # (Auto) 8.3 H Lymph # (Auto) 1.7 [place] # (Auto) 1.1 H Eos # (Auto) 0.0 Baso # (Auto) 0.1 WBC Differential Manual diff final Seg Neuts % (Manual) 70 Band Neuts % (Manual) 6 Lymphocytes % (Manual) 15 Monocytes % (Manual) 6 Metamyelocytes % (Man) 1 Myelocytes % (Man) 2 H Abs Neuts (Manual) 8.8 H Differential Comment . Platelet Estimate Normal Platelet Morphology Normal PT 13.9 H INR 1.4 APTT 31.1 Sodium 150 H Potassium 3.5 Chloride 108 H Carbon Dioxide 25.1 Anion Gap 17 H BUN 102 H Creatinine 7.59 H Estimated GFR 5 L POC Glucose Random Glucose 150 H Calcium 6.7 L* D Calcium Adj for Albumin 8.3 L Phosphorus 8.7 H D Magnesium 1.9 Total Bilirubin 1.0 AST 98 H ALT 121 H Alkaline Phosphatase 103 Total Protein 6.1 L D Albumin 2.0 L Blood Type Blood Type Recheck Antibody Screen MTS Gel Crossmatch 04/21/18 05:27 WBC RBC Hgb Hct MCV MCH MCHC RDW Plt Count MPV Prelim Diff (Auto) Neut % (Auto) Lymph % (Auto) [place] % (Auto) Eos % (Auto) Baso % (Auto) Neut # (Auto) Lymph # (Auto) [place] # (Auto) Eos # (Auto) Baso # (Auto) WBC Differential Seg Neuts % (Manual) Band Neuts % (Manual) Lymphocytes % (Manual) Monocytes % (Manual) Metamyelocytes % (Man) Myelocytes % (Man) Abs Neuts (Manual) Differential Comment Platelet Estimate Platelet Morphology PT INR APTT Sodium Potassium Chloride Carbon Dioxide Anion Gap BUN Creatinine Estimated GFR POC Glucose 170 H Random Glucose Calcium Calcium Adj for Albumin Phosphorus Magnesium Total Bilirubin AST ALT Alkaline Phosphatase Total Protein Albumin Blood Type Blood Type Recheck Antibody Screen MTS Gel Crossmatch Microbiology 04/15/18 13:55 Aerobic Blood Culture - Final Blood - Peripheral No growth in 5 days Anaerobic Blood Culture - Final No growth in 5 days 04/15/18 11:30 Aerobic Blood Culture - Final Blood - Line No growth in 5 days Anaerobic Blood Culture - Final No growth in 5 days Impressions GI Bleed Scan Nuclear Medicine 04/20/18 00:00 CONCLUSION: 1. Negative for gastrointestinal hemorrhage. Chest X-Ray 04/20/18 06:00 CONCLUSION: Mild consolidation or atelectasis at the medial right base which appears to be improving. 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 GI bleed Continue with the workup for GI bleed. We will hold off left upper extremity fistula ligation and plan later next week. Alexis Stuart MD [phone]
--- NOTE | 2018-04-21 13:34 | P.BOP ---
- Preoperative Diagnosis (1) Gastrointestinal hemorrhage with melena - Postoperative Diagnosis (1) Gastrointestinal hemorrhage with melena Date of procedure: 04/21/18 Procedure: Colonoscopy: The colonoscope was inserted per rectum and advanced through to the cecum without difficulty. The patient tolerated the procedure well. Findings: Diffuse moderate to severe diverticulosis was seen throughout the colon. There was maroon to red blood seen throughout the entire length of the colon and in the distal 10 cm of the terminal ileum. No biopsies were obtained. Surgeon: Matti Wharton MD Pathology: none sent
--- NOTE | 2018-04-21 14:47 | P.PCN ---
Date of procedure: 04/21/18
--- NOTE | 2018-04-21 17:36 | P.PCN ---
Date of procedure: 04/21/18 Pre-op diagnosis: anemia and melena Procedure: THANK YOU FOR THE REFERRAL Indication; Melena and anemia Procedure Performed; upper endoscopy with biopsy Colonoscopy, diagnostic After informing the patient about procedure and possible complications consent was signed. history and physical were updated. Patient was taken to the procedure room and placed in position. Time out was completed. Adequate sedation was performed by anesthesia provider. Upper Endoscopy, the scope was placed in the mouth advanced under video guide to the second portion of the duodenum, then the scope was withdrawal to the stomach and retro-flexion was performed, the scope was withdrawal to the esophagus then out of the mouth without any immediate complication Colonoscopy, rectal exam was performed the scope was placed in the rectum advanced under video guide to the cecum which was identified by ileo-cecal valve and appendiceal orifice, then the scope withdrawal slowly with examination of the mucosa to the rectum and retro-flexion was performed, the scope was withdrawal without any immediate complication Findings; colonoscopy, prep was not adequate due to red blood and maroon blood throughout colon. Terminal ileum : red blood was seen in the terminal ileum for 10 cm. Colon: Moderate diverticulosis seen throughout the colon. Red and maroon stool seen throughout the colon Rectum: Maroon and black blood seen. Esophagus: Normal mucosa, Z line at 35 cm Stomach: mild gastritis seen in the antrum. Biopsies taken from the antrum and body. No ulcers or erosions. No evidence of bleeding. Duodenum: normal bulb through second portion. Recommendations; 1- Supportive care 2- ok to transfer to recovery area then discharge per protocol 0-[id number] diet 4-Hemoccult on a yearly basis by primary care physician 5-colonoscopy in 10 years 6- EGD as needed 7- Return to floor as inpatient 8- NPO 9- Nuclear medicine bleeding scan 10- Pathology pending Anesthesia: MAC Surgeon: Matti Wharton Pathology: other (antrum and body) Condition: stable Disposition: floor
[2018-04-21 18:37] LABS: Hematocrit 23.1 % (35.0-46.0); Hemoglobin 7.8 gm/dL (11.6-15.3); Mean Corpuscular HGB Conc 33.9 % (32.0-36.0); Mean Corpuscular Hemoglobin 30.7 pg (27.0-34.0); Mean Corpuscular Volume 90.4 fL (80.0-100.0); Mean Platelet Volume 9.4 fL (7.0-11.0); Platelet Count 185 th/mm3 (150-450); Red Blood Count 2.55 mil/mm3 (4.00-5.30); Red Cell Distribution Width 19.3 % (11.6-17.2); White Blood Count 11.1 th/mm3 (4.0-11.0)
[2018-04-22] MEDS: Piperacil/Tazo 2.25 GM Premix 50 ML IV.SIG SCH ×4 (02:56→20:04)
[2018-04-22] MEDS: fentaNYL Citrate Inj 100 MCG/2 ML Ampul IV.PUSH PRN ×5 (02:57→23:24)
[2018-04-22 04:41] LABS: Baso # (Auto) 0.1 th/mm3 (0.0-0.2); Baso % (Auto) 0.5 % (0.0-2.0); Eos # (Auto) 0.2 th/mm3 (0.0-0.4); Eos % (Auto) 1.4 % (0.0-4.0); Hematocrit 23.3 % (35.0-46.0); Hemoglobin 7.8 gm/dL (11.6-15.3); Lymph # (Auto) 1.9 th/mm3 (1.0-4.8); Lymph % (Auto) 15.9 % (9.0-44.0); Mean Corpuscular HGB Conc 33.4 % (32.0-36.0); Mean Corpuscular Hemoglobin 30.6 pg (27.0-34.0); Mean Corpuscular Volume 91.8 fL (80.0-100.0); Mean Platelet Volume 9.7 fL (7.0-11.0); Mono # (Auto) 0.7 th/mm3 (0.0-0.9); Mono % (Auto) 5.6 % (0.0-8.0); Neut # (Auto) 9.1 th/mm3 (1.8-7.7); Neut % (Auto) 76.6 % (16.0-70.0); Platelet Count 182 th/mm3 (150-450); Red Blood Count 2.54 mil/mm3 (4.00-5.30); Red Cell Distribution Width 19.8 % (11.6-17.2); White Blood Count 11.9 th/mm3 (4.0-11.0)
[2018-04-22 05:04] LABS: Albumin 2.3 g/dL (3.4-5.0); Carbon Dioxide 23.7 meq/L (21.0-32.0); Magnesium 1.8 mg/dL (1.5-2.5); Potassium 3.3 meq/L (3.5-5.1)
[2018-04-22] MEDS: Insulin NovoLOG Aspart Correctional Sugar Inj SQ SCH ×4 (06:31→23:23)
[2018-04-22 06:54] LABS: Lymphocytes 16 % (9-44); Metamyelocytes 2 % (0-1); Monocytes 3 % (0-8); Myelocytes 1 % (0-0); Promyelocyte 1 % (0-0)
[2018-04-22 06:56] LABS: Platelet Estimate Normal (Normal); Platelet Morphology Normal (Normal)
--- NOTE | 2018-04-22 07:05 | P.PNCC ---
Subjective Subjective Remarks/Hospital Course: Patient is a 72-year-old female with past medical history significant for previous strokes, TIA, end-stage renal disease on hemodialysis (Monday, Monday schedule), Left AV fistula on 01/2018, type 2 diabetes, and hypertension. EMS was called as her roommate found her unresponsive last seen normal yesterday night. IV 0.4 mg of Narcan was given without any response. Patient was intubated in the emergency department for airway protection, for a GCS 8. Lab work showed leukocytosis of 12,500 with a left shift of 90% neutrophilia, 29% bands. Lactic acid came back at 6. CMP showed potassium of 6.0 bicarb of 16.7, anion gap of 24, liver enzymes were markedly elevated AST 1992 ALT 758, CPK 475, troponin 5.21. EKG did not show any evidence of acute ST elevation. ABG shows pH of 7.19 PCO2 of 48 PaO2 of [address] abdomen pelvis showed distended gallbladder with cholelithiasis, also small amount of air in the fundus of the gallbladder. Critical care medicine was consulted for admission. I evaluated the patient in the emergency department. She is acutely ill critical appearing. Intermittently hypotensive. Dr. Vargas has placed a left subclavian central line. I will start Levophed if needed. Patient received Zosyn and Flagyl in the ED. I will place patient on vancomycin and Zosyn renally dosed. Pierre cultures have been sent. With the CT finding I contacted Dr. Cortes who requested stat ultrasound of the right upper quadrant. Also ID was consulted and I discussed with Dr. Montaño. Patient has healed scars probably few week old laparoscopic abdominal surgery, it is unclear what kind of surgery she had. Dr. Fermin consulted for an STEMI. Nephrology Dr. Gillette consulted for emergent hemodialysis 04/15 -T-max 101. Remains on broad-spectrum antibiotics. Noted cool left fingers not cyanotic but will check fistula Doppler and arterial Dopplers and venous Doppler left upper extremity. Central line placed left subclavian noted. 04/16: T-max 100.5. MRCP pending. Right upper lower extremity and left lower extremity remains warm. Cool left upper extremity. Has seen Dr. Wu for her left AV fistula in the past. Positive dopplerable/patent left AV fistula noted by Doppler 04/15. Downward trending liver function test. 04/17: Afebrile. Patient received 2 doses of digoxin due to A. fib with RVR. Currently normal sinus rhythm. Hypoglycemic overnight requiring D5 normal saline currently at 42 cc an hour. Off all vasopressors. Remains in normal sinus rhythm. Cardiology recommended IV diltiazem for paroxysmal atrial fibrillation. Will order. MRCP result results noted. 04/18: Afebrile. Patient extubated yesterday without complication. Currently resting on simple mask playing of pain but unknown source. Noted vascular surgery's note. 04/19: Afebrile. Remains on nasal cannula. More alert and interactive today. Will start tube feeds today. Speech evaluation for swallowing. Currently afebrile. No bowel movement. 04/20: Overnight, patient with several bright red problems per rectum. Continues to start on IV pantoprazole twice daily. Hemoglobin currently 7.4. Transfusing 2 units PRBCs now and sent for stat nuclear medicine bleeding scan. Patient appears to be hemodynamically stable but is very pale. Was plan for ligation of the left upper extremity AV fistula by vascular surgery but this will be placed on hold. Continues to moan in the room. 04/21: Negative bleeding scan overnight. Hemoglobin currently 8.4 after 2 units PRBCs. Actively undergoing hemodialysis currently. Plan for EGD and colonoscopy in the next 24-48 hours. Recheck hemoglobin at 1800 hrs. tonight.. She is much more lucid and interactive today. Subjective 04/22: Status post EGD and colonoscopy yesterday. EEG showed mild gastritis otherwise negative. Colonoscopy poor prep. Blood throughout the colon. Diverticulosis. Bleeding scan ordered but unable to perform as recently -. Hemoglobin remained stable at 7.8. She appears comfortable. Main complaint is pain in her left hand Objective Vital Signs / I&O: Vital Signs 04/21/18 07:36 04/21/18 08:00 04/21/18 09:00 Temperature 97.8 F Pulse Rate 59 L 62 64 Respiratory Rate 20 12 Blood Pressure 143/59 H 109/45 L Pulse Oximetry 100 99 04/21/18 09:15 04/21/18 09:30 04/21/18 09:45 Temperature Pulse Rate 62 63 62 Respiratory Rate 16 13 14 Blood Pressure 116/46 L 124/51 L 128/48 L Pulse Oximetry 100 100 100 04/21/18 10:00 04/21/18 10:15 04/21/18 10:30 Temperature Pulse Rate 66 68 65 Respiratory Rate 18 12 13 Blood Pressure 133/53 L 126/53 L 105/45 L Pulse Oximetry 100 100 100 04/21/18 10:45 04/21/18 11:00 04/21/18 12:00 Temperature Pulse Rate 66 62 62 Respiratory Rate 15 14 12 Blood Pressure 111/44 L 122/53 L 122/53 L Pulse Oximetry 100 100 100 04/21/18 13:20 04/21/18 13:30 04/21/18 13:40 Temperature 97.6 F Pulse Rate 69 71 Respiratory Rate 18 18 Blood Pressure 114/52 L 122/59 L Pulse Oximetry 97 97 97 04/21/18 13:42 04/21/18 13:43 04/21/18 14:00 Temperature Pulse Rate 71 66 67 Respiratory Rate 10 L 9 L Blood Pressure 134/57 L 144/56 H Pulse Oximetry 97 97 99 04/21/18 15:00 04/21/18 15:02 04/21/18 16:00 Temperature 98.3 F Pulse Rate 69 66 62 Respiratory Rate 16 12 16 Blood Pressure 136/53 L 127/50 L Pulse Oximetry 97 97 99 04/21/18 16:01 04/21/18 16:03 04/21/18 17:00 Temperature Pulse Rate 62 64 68 Respiratory Rate 17 22 12 Blood Pressure 127/50 L 129/58 L Pulse Oximetry 99 98 04/21/18 18:00 04/21/18 18:01 04/21/18 19:00 Temperature Pulse Rate 59 L 59 L 59 L Respiratory Rate 16 18 16 Blood Pressure 123/49 L Pulse Oximetry 98 98 100 04/21/18 19:01 04/21/18 19:57 04/21/18 20:00 Temperature Pulse Rate 59 L 57 L 57 L Respiratory Rate 17 14 15 Blood Pressure 125/51 L 121/50 L Pulse Oximetry 100 96 97 04/21/18 21:00 04/21/18 22:00 04/21/18 23:00 Temperature Pulse Rate 68 68 58 L Respiratory Rate 13 15 13 Blood Pressure 129/56 L 129/55 L Pulse Oximetry 99 98 99 04/21/18 23:01 04/21/18 23:22 04/22/18 00:00 Temperature Pulse Rate 59 L 57 L 58 L Respiratory Rate 11 L 16 15 Blood Pressure 129/49 L Pulse Oximetry 99 97 04/22/18 00:01 04/22/18 01:00 04/22/18 02:00 Temperature Pulse Rate 58 L 59 L 58 L Respiratory Rate 15 14 16 Blood Pressure 121/46 L 115/45 L 114/48 L Pulse Oximetry 98 98 98 04/22/18 03:00 04/22/18 04:00 04/22/18 05:00 Temperature Pulse Rate 56 L 62 57 L Respiratory Rate 13 15 15 Blood Pressure 121/56 L 123/51 L 112/48 L Pulse Oximetry 97 98 98 04/22/18 06:00 Temperature Pulse Rate 58 L Respiratory Rate 13 Blood Pressure 119/53 L Pulse Oximetry 98 Intake & Output 04/21/18 04/22/18 04/22/18 18:59 06:59 18:59 Intake Total 500 / 500 50 / 50 Output Total 2500 / 2500 Balance -1999 / -1999 50 / 50 Intake: IV 300 / 300 50 / 50 Protonix Inj 80 MG In NS Inj 100 / 100 100 ML @ 10 mls/hr IV.CONT Q10H [facility] Rx#:[id number] Flexbumin 25% Inj 100 ML @ 60 100 / 100 mls/hr IV.SIG WITH DIALYSIS PRN Rx#:[id number] Zosyn 2.25 GM Premix 50 ML @ 100 / 100 50 / 50 100 mls/hr IV.SIG Q6H [facility] Rx#: [id number] Oral 0 / 0 Anesthesia Amount 200 / 200 Output: Urine 0 / 0 Hemodialysis Amount 2500 / 2500 Other: Date of Last Bowel Movement 04/21/18 04/20/18 # Bowel Movements 2 # Incontinent Bowel Movements 2 Result Diagrams: 04/22/18 03:15 04/22/18 03:15 Other Results: Microbiology 04/15/18 13:55 Blood - Peripheral Aerobic Blood Culture - Final No growth in 5 days 04/15/18 13:55 Blood - Peripheral Anaerobic Blood Culture - Final No growth in 5 days 04/15/18 11:30 Blood - Line Aerobic Blood Culture - Final No growth in 5 days 04/15/18 11:30 Blood - Line Anaerobic Blood Culture - Final No growth in 5 days 04/14/18 10:20 Blood - Peripheral Aerobic Blood Culture - Final No growth in 5 days 04/14/18 10:20 Blood - Peripheral Anaerobic Blood Culture - Final No growth in 5 days 04/14/18 10:25 Blood - Peripheral Aerobic Blood Culture - Final No growth in 5 days 04/14/18 10:25 Blood - Peripheral Anaerobic Blood Culture - Final No growth in 5 days 04/14/18 15:15 Sputum - Endotracheal Gram Stain - Final 04/14/18 15:15 Sputum - Endotracheal Sputum Culture - Final Heavy growth normal respiratory black 04/14/18 10:35 Clean Catch Urine Urine Culture - Final No growth in 48 hours Imaging: Chest X-Ray 04/14/18 09:44 CONCLUSION: Satisfactory position of supporting devices Interval placement of bilateral central venous catheters without evidence of pneumothorax. Cardiomegaly with out evidence of acute airspace disease or significant pulmonary edema. Head CT 04/14/18 09:44 CONCLUSION: 1. 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 2. No evidence of acute infarct, hemorrhage, mass or edema. 3. No significant change compared to 04/12/2017. . Abdomen/Pelvis CT 04/14/18 10:59 CONCLUSION: 1. Distended gallbladder with cholelithiasis and minimal gas in the fundus. There is no significant pericholecystic fluid or inflammation. 2. Simple left renal cyst. 3. Bibasilar airspace disease. Liver Ultrasound 04/14/18 12:44 CONCLUSION: 1. Gallbladder contains sludge and stones. However, no additional findings are present to definitively indicate acute cholecystitis. 2. Common bile duct is enlarged but contains no visible stone. Given the pain one could consider MRCP for further evaluation of the common duct stone as a cause for the duct dilatation in right upper quadrant pain. 3. Atrophic right kidney with changes suggesting chronic medical renal disease. There is a complex cystic lesion in the mid kidney and renal sinus measuring up to 3.5 cm. At some point ideally be further characterized with renal protocol MRI with and without intravenous contrast. This should be performed on an elective basis when condition permits. Extremity Arterial Study 04/15/18 00:00 CONCLUSION: 1. Significantly limited examination due to unobtainable pressures in the forearms bilaterally. 2. Unobtainable pressures and absence of waveforms in the left hand. Cannot exclude steal from patient's left upper extremity brachiobasilic fistula. Upper Extremity Ultrasound 04/15/18 00:00 CONCLUSION: Patent left AV fistula. Venous Doppler Study 04/15/18 00:00 CONCLUSION: No evidence of DVT. Chest X-Ray 04/16/18 06:00 CONCLUSION: No significant interval change. No acute cardiopulmonary disease identified. Cholangiopancreatography MRI 04/16/18 07:10 CONCLUSION: 1. Cholelithiasis with multiple small gallstones layering dependently. There is no gallbladder wall thickening or inflammatory change. No gas is visualized on the MRI. 2. Common bile duct measuring up to 1 cm with no filling defects or mass. This could represent distal obstruction or prior passage of stones. 3. Multiple benign-appearing small cystic structures in the pancreas. 4. Bilateral simple renal cysts as well as a more complex right parapelvic cyst. Chest X-Ray 04/17/18 06:00 CONCLUSION: Minimal right lung base opacity. Chest X-Ray 04/18/18 06:00 CONCLUSION: 1. Endotracheal tube no longer seen. 2. Minimal right lung base opacity unchanged. GI Bleed Scan Nuclear Medicine 04/20/18 00:00 CONCLUSION: 1. Negative for gastrointestinal hemorrhage. Chest X-Ray 04/20/18 06:00 CONCLUSION: Mild consolidation or atelectasis at the medial right base which appears to be improving. Objective Remarks: GENERAL: 72-year-old female currently on nasal cannula appears in no acute distress SKIN: Warm and dry with the exception of cool peripheral fingers left upper extremity dopplerable pulses. HEAD: Atraumatic. Normocephalic. EYES: Pupils equal and round about 2 mm bilaterally and reactive. No scleral icterus. No injection or drainage. ENT: No nasal bleeding or discharge. Mucous membranes pink and moist. NECK: Trachea midline. No JVD. CARDIOVASCULAR: Regular rate and rhythm. S1, S2. No S4. No appreciable murmur RESPIRATORY: Few fine crackles appreciated bilaterally anteriorly posteriorly. No wheezing GASTROINTESTINAL: Abdomen soft, slight right upper quadrant-tender, nondistended. Hepatic and splenic margins not palpable. Hypoactive bowel sounds appreciated. MUSCULOSKELETAL: Extremities without clubbing, cyanosis, or edema. Left AV fistula positive thrill. Patient has a tunneled right IJ Hemovac catheter NEUROLOGICAL: Currently arousable and follows commands. Weak left upper extremity compared to the right. Assessment and Plan - Problem List (1) Acute metabolic encephalopathy Code(s): G93.41 - Metabolic encephalopathy Status: Acute (2) Acute hypoxemic respiratory failure Code(s): J96.01 - Acute respiratory failure with hypoxia Status: Acute (3) Septic shock Code(s): A41.9 - Sepsis, unspecified organism; R65.21 - Severe sepsis with septic shock Status: Resolved (4) Lactic acidosis Code(s): E87.2 - Acidosis Status: Acute (5) Non-ST elevated myocardial infarction (non-STEMI) Code(s): I21.4 - Non-ST elevation (NSTEMI) myocardial infarction Status: Acute (6) UTI (urinary tract infection) Code(s): N39.0 - Urinary tract infection, site not specified Status: Acute (7) Liver enzyme elevation Code(s): R74.8 - Abnormal levels of other serum enzymes Status: Acute (8) Emphysematous cholecystitis Code(s): K81.0 - Acute cholecystitis Status: Acute (9) Hyperkalemia Code(s): E87.5 - Hyperkalemia Status: Acute (10) ESRD (end stage renal disease) Code(s): N18.6 - End stage renal disease Status: Chronic (11) HTN (hypertension) Code(s): I10 - Essential (primary) hypertension Status: Chronic (12) Diabetes Code(s): E11.9 - Type 2 diabetes mellitus without complications Status: Chronic (13) GERD (gastroesophageal reflux disease) Code(s): K21.9 - Gastro-esophageal reflux disease without esophagitis Status: Chronic (14) Stroke Code(s): I63.9 - Cerebral infarction, unspecified Status: Chronic (15) TIA (transient ischemic attack) Code(s): G45.9 - Transient cerebral ischemic attack, unspecified Status: Chronic - Assessment and Plan Plan: NEURO/PSYCH: Acute metabolic encephalopathy Old small bilateral cerebellar infarcts. -Encephalopathy seems to be metabolic secondary to severe sepsis -CT of the head shows old bilateral cerebellar strokes, and nothing acute. -As needed fentanyl 25 mcg every 3 hours as needed pain RESP: Acute hypoxemic respiratory failure -Intubated in the emergency department for lack of airway protection and hypoxia -Extubated 04/17 -nasal cannula maintain saturations greater than equal to 90%. Wean as tolerated -albuterol/ipratropium aerosols every 4 hours with albuterol aerosols every 2 hours as needed -Incentive spirometry while -Head of bed at 30 degrees -Chest x-ray in a.m. 04/23 CV: NSTEMI likely type II Paroxysmal atrial fibrillation with 2 1 AV conduction Hypotension Lactic acidosis History of hypertension -GI bleeding currently holding aspirin 81 mg daily -Cardiology Dr. Fermin consulted NSTEMI most likely type II from sepsis -Hold all home antihypertensives (hold nifedipine, clonidine, hydralazine and Lasix) -Cardiology recommended diltiazem 30 mg 4 times daily and carvedilol 3.125 mg twice daily -2d echocardiogram revealed normal left ventricular size. EF 65-70%. Left lipomatous atrial septum,. Trace MR/TR GI: Improved only downtrending elevated liver enzymes Admitting diagnosis of emphysematous cholecystitis/likely passed stone History of GERD -N.p.o Per GI. -Currently on pantoprazole drip at 8 mg an hour -Holding Nepro at 40 cc an hour goal. -Speech eval for swallow.-Failed 04/19 -CT abdomen pelvis shows small amount of air in the fundus of the gallbladder, this is concerning for emphysematous cholecystitis given clinical picture -Stat consult to general surgery and discussed with Dr. Cortes. Recommended conservative therapy at the present time. -Dr. Cortes/general surgery and gastroenterology signed off MRCP -04/16 - cholelithiasis with multiple small gallstones layering dependently. There is no gallbladder wall thickening or inflammatory change. No gas is visualized on the MRI. Common bile duct measuring up to 1 cm with no filling defects or mass. This could represent distal obstruction or prior passage of stones. Multiple benign-appearing small cystic structures in the pancreas. Bilateral simple renal cysts as well as a more complex right parapelvic cyst. -Possible ERCP. LFTs very slowly trending downward -GI following still -With bright red blood per rectum we will nuclear medicine bleeding scan was negative-04/20. Repeat ordered by GI -GI for EGD with gastritis and colonoscopy -sigmoid/colonic diverticulosis. Bright red blood. Poor prep. Renal/: End-stage renal disease -Monitor renal function closely. -Dr. Gillette consulted for emergent hemodialysis on 04/14. Dialyzed 04/21 -Monitor urine output accurate I's and O's ID: Septic shock Admitting diagnosis of possible emphysematous cholecystitis/likely passed stone Possible UTI -Antibiotics with piperacillin/tazobactam. Discontinued vancomycin 04/16 -Infectious disease continues to follow and general surgery consulted. -Follow-up blood urine and sputum cultures no growth to date HEME: Normocytic anemia Leukocytosis -Monitor CBC, coags. Check coags now -Receiving 2 units PRBCs on 04/20. Recheck at 1500 and 2300 hrs. today ENDO/FEN: Hyperphosphatemia Hypokalemia Type 2 diabetes -Sliding scale insulin -We will start on calcium acetate at 1334 g 3 times daily MSK Cyanosis left upper extremity Followed by Dr. Wu. Plan AV fistula ligation 04/20 but on hold due to lower GI bleed PROPH: -Bilateral lower extremity SCDs. Heparin sq/omeprazole LINES: -Utilize peripheral IVs, left subclavian central line day #5 with left femoral arterial line day #3 both discontinued 04/18 Level 3 follow-up (6) UTI (urinary tract infection) Qualifiers: Urinary tract infection type: site unspecified Hematuria presence: without hematuria Qualified Code(s): N39.0 - Urinary tract infection, site not specified (11) HTN (hypertension) Qualifiers: Hypertension type: unspecified Qualified Code(s): I10 - Essential (primary) hypertension (12) Diabetes Qualifiers: Diabetes mellitus type: other specified (including YOVANI) Diabetes mellitus superintendent container terminal insulin use: unspecified fpc insulin use status Diabetes mellitus complication status: with unspecified complications Qualified Code(s) : E13.8 - Other specified diabetes mellitus with unspecified complications (13) GERD (gastroesophageal reflux disease) Qualifiers: Esophagitis presence: esophagitis presence not specified Qualified Code(s): K21.9 - Gastro-esophageal reflux disease without esophagitis (14) Stroke Qualifiers: CVA mechanism: unspecified Qualified Code(s): I63.9 - Cerebral infarction, unspecified
[2018-04-22] MEDS: Chlorhexidine 0.12% Oral Kit 15 ML UDC OROPHARYNG SCH ×3 (07:35→20:04)
[2018-04-22] MEDS: Artificial Tears Opth Drops 15 ML Bottle EACH EYE SCH ×3 (07:35→18:05)
[2018-04-22] MEDS: Oral Hygiene Kit OROPHARYNG SCH ×4 (07:36→23:23)
[2018-04-22] MEDS: Pantoprazole Inj 80 MG in Sodium Chlor 0.9% Inj 100 ML IV.CONT SCH ×3 (07:36→20:04)
[2018-04-22] MEDS: Dextrose 5%/NaCl 0.45% Inj 1,000 ML IV.CONT SCH (08:18)
[2018-04-22] MEDS: Mupirocin 2% Nasal Oint Topical Syringe EACH NARE SCH ×2 (08:18→20:04)
[2018-04-22] MEDS: dilTIAZem 30 MG Tablet PO SCH ×4 (08:19→20:04)
[2018-04-22] MEDS: Calcium Acetate 667 MG Capsule NG/OG SCH ×3 (08:19→18:05)
--- NOTE | 2018-04-22 09:15 | P.PNID ---
Subjective Remarks: ID Coverage is a 72 y/o WF with PMHx of CKD s/p attempt at PD catheter placement due to non compliance, also Left Brachiocephalic AV fistula on 2017 by . Patient was reportedly found with decreased level of consciousness. Room mates do not know much about her medical history and reportedly seen her normal the night prior. Per records EMS gave her Narcan and there was improvement noted. No family nos on chart and old records could not be assessed. Patients past medical records from prior visits could not be accessed by me but patient has CKD and prior Bradycardia on prior admit. Also patient has a history of stroke diabetes hypertension GERD. On admission she had leukocytosis of 12,000 with a left shift. Metabolic acidosis on ABG. Lactic acid 6.Troponins elevated. Cr at 9.6. Normal lipase, LFTs in thousands. CT with air concerning for emphysematous cholecystitis. At the time of my evaluation patient is in IMC, not on pressors, has received fluid bolus amount not documented per RN. She is currently intubated, not sedated, opens eyes, does not follow commands for me. No obvious focal deficit. ID consulted for evaluation and Mment of Severe Sepsis, possible acute cholecystitis. Notes reviewed D/W RN Had upper and lower endoscopy yesterday - colon not well seen due to blood afebrile overnight Denies abdominal pain Clam and responding Temps ok BP ok Antibiotics: zosyn IV Lines: Line sites ok Past Medical History: reviewed Allergies/Adverse Reactions: Allergies No Known Allergies Allergy (Verified 01/22/18 10:23) Objective Vital Signs 04/21/18 09:15 04/21/18 09:30 04/21/18 09:45 Temperature Pulse Rate 62 63 62 Respiratory Rate 16 13 14 Blood Pressure 116/46 L 124/51 L 128/48 L Pulse Oximetry 100 100 100 04/21/18 10:00 04/21/18 10:15 04/21/18 10:30 Temperature Pulse Rate 66 68 65 Respiratory Rate 18 12 13 Blood Pressure 133/53 L 126/53 L 105/45 L Pulse Oximetry 100 100 100 04/21/18 10:45 04/21/18 11:00 04/21/18 12:00 Temperature Pulse Rate 66 62 62 Respiratory Rate 15 14 12 Blood Pressure 111/44 L 122/53 L 122/53 L Pulse Oximetry 100 100 100 04/21/18 13:20 04/21/18 13:30 04/21/18 13:40 Temperature 97.6 F Pulse Rate 69 71 Respiratory Rate 18 18 Blood Pressure 114/52 L 122/59 L Pulse Oximetry 97 97 97 04/21/18 13:42 04/21/18 13:43 04/21/18 14:00 Temperature Pulse Rate 71 66 67 Respiratory Rate 10 L 9 L Blood Pressure 134/57 L 144/56 H Pulse Oximetry 97 97 99 04/21/18 15:00 04/21/18 15:02 04/21/18 16:00 Temperature 98.3 F Pulse Rate 69 66 62 Respiratory Rate 16 12 16 Blood Pressure 136/53 L 127/50 L Pulse Oximetry 97 97 99 04/21/18 16:01 04/21/18 16:03 04/21/18 17:00 Temperature Pulse Rate 62 64 68 Respiratory Rate 17 22 12 Blood Pressure 127/50 L 129/58 L Pulse Oximetry 99 98 04/21/18 18:00 04/21/18 18:01 04/21/18 19:00 Temperature Pulse Rate 59 L 59 L 59 L Respiratory Rate 16 18 16 Blood Pressure 123/49 L Pulse Oximetry 98 98 100 04/21/18 19:01 04/21/18 19:57 04/21/18 20:00 Temperature Pulse Rate 59 L 57 L 57 L Respiratory Rate 17 14 15 Blood Pressure 125/51 L 121/50 L Pulse Oximetry 100 96 97 04/21/18 21:00 04/21/18 22:00 04/21/18 23:00 Temperature Pulse Rate 68 68 58 L Respiratory Rate 13 15 13 Blood Pressure 129/56 L 129/55 L Pulse Oximetry 99 98 99 04/21/18 23:01 04/21/18 23:22 04/22/18 00:00 Temperature Pulse Rate 59 L 57 L 58 L Respiratory Rate 11 L 16 15 Blood Pressure 129/49 L Pulse Oximetry 99 97 04/22/18 00:01 04/22/18 01:00 04/22/18 02:00 Temperature Pulse Rate 58 L 59 L 58 L Respiratory Rate 15 14 16 Blood Pressure 121/46 L 115/45 L 114/48 L Pulse Oximetry 98 98 98 04/22/18 03:00 04/22/18 04:00 04/22/18 05:00 Temperature Pulse Rate 56 L 62 57 L Respiratory Rate 13 15 15 Blood Pressure 121/56 L 123/51 L 112/48 L Pulse Oximetry 97 98 98 04/22/18 06:00 04/22/18 07:00 04/22/18 07:29 Temperature Pulse Rate 58 L Respiratory Rate 13 16 Blood Pressure 119/53 L Pulse Oximetry 98 98 04/22/18 07:35 04/22/18 07:54 Temperature Pulse Rate 62 Respiratory Rate 16 14 Blood Pressure Pulse Oximetry 98 Intake & Output 04/21/18 04/22/18 04/22/18 18:59 06:59 18:59 Intake Total 500 / 500 450 / 450 Output Total 2500 / 2500 Balance -1999 / -1999 450 / 450 Weight 83.5 kg Intake: IV 300 / 300 200 / 200 Protonix Inj 80 MG In NS Inj 100 / 100 100 / 100 100 ML @ 10 mls/hr IV.CONT Q10H [facility] Rx#:[id number] Flexbumin 25% Inj 100 ML @ 60 100 / 100 mls/hr IV.SIG WITH DIALYSIS PRN Rx#:[id number] Zosyn 2.25 GM Premix 50 ML @ 100 / 100 100 / 100 100 mls/hr IV.SIG Q6H [facility] Rx#: [id number] Oral 0 / 0 150 / 150 Anesthesia Amount 200 / 200 Other 100 / 100 Output: Urine 0 / 0 Hemodialysis Amount 2500 / 2500 Other: # Incontinent Voids 2 Date of Last Bowel Movement 04/21/18 04/20/18 # Bowel Movements 2 # Incontinent Bowel Movements 2 04/15/18 13:55 Blood - Peripheral Aerobic Blood Culture - Final No growth in 5 days 04/15/18 13:55 Blood - Peripheral Anaerobic Blood Culture - Final No growth in 5 days 04/15/18 11:30 Blood - Line Aerobic Blood Culture - Final No growth in 5 days 04/15/18 11:30 Blood - Line Anaerobic Blood Culture - Final No growth in 5 days 04/14/18 10:20 Blood - Peripheral Aerobic Blood Culture - Final No growth in 5 days 04/14/18 10:20 Blood - Peripheral Anaerobic Blood Culture - Final No growth in 5 days 04/14/18 10:25 Blood - Peripheral Aerobic Blood Culture - Final No growth in 5 days 04/14/18 10:25 Blood - Peripheral Anaerobic Blood Culture - Final No growth in 5 days Lab - Hematology Results 04/20/18 04/21/18 04/21/18 20:12 03:28 18:10 WBC 11.2 H 11.1 H RBC 2.71 L 2.55 L Hgb 9.5 L D 8.4 L 7.8 L Hct 27.7 L 24.8 L 23.1 L MCV 91.3 D 90.4 MCH 30.9 30.7 MCHC 33.8 33.9 RDW 20.6 H 19.3 H Plt Count 188 185 MPV 9.4 9.4 Prelim Diff (Auto) Slide review pending Neut % (Auto) 74.0 H Lymph % (Auto) 15.4 [place] % (Auto) 9.7 H Eos % (Auto) 0.2 Baso % (Auto) 0.7 Neut # (Auto) 8.3 H Lymph # (Auto) 1.7 [place] # (Auto) 1.1 H Eos # (Auto) 0.0 Baso # (Auto) 0.1 WBC Differential Manual diff final Seg Neuts % (Manual) 70 Band Neuts % (Manual) 6 Lymphocytes % (Manual) 15 Monocytes % (Manual) 6 Metamyelocytes % (Man) 1 Myelocytes % (Man) 2 H Promyelocytes % (Man) Abs Neuts (Manual) 8.8 H Differential Comment . Platelet Estimate Normal Platelet Morphology Normal 04/22/18 03:15 WBC 11.9 H RBC 2.54 L Hgb 7.8 L Hct 23.3 L MCV 91.8 MCH 30.6 MCHC 33.4 RDW 19.8 H Plt Count 182 MPV 9.7 Prelim Diff (Auto) Slide review pending Neut % (Auto) 76.6 H Lymph % (Auto) 15.9 [place] % (Auto) 5.6 Eos % (Auto) 1.4 Baso % (Auto) 0.5 Neut # (Auto) 9.1 H Lymph # (Auto) 1.9 [place] # (Auto) 0.7 Eos # (Auto) 0.2 Baso # (Auto) 0.1 WBC Differential Manual diff final Seg Neuts % (Manual) 71 H Band Neuts % (Manual) 6 Lymphocytes % (Manual) 16 Monocytes % (Manual) 3 Metamyelocytes % (Man) 2 H Myelocytes % (Man) 1 H Promyelocytes % (Man) 1 H Abs Neuts (Manual) 9.6 H Differential Comment . Platelet Estimate Normal Platelet Morphology Normal Lab - Chemistry Results 04/20/18 04/21/18 04/21/18 15:58 03:28 05:27 Sodium 150 H Potassium 3.5 Chloride 108 H Carbon Dioxide 25.1 Anion Gap 17 H BUN 102 H Creatinine 7.59 H Estimated GFR 5 L POC Glucose 176 H 170 H Random Glucose 150 H Calcium 6.7 L* D Calcium Adj for Albumin 8.3 L Phosphorus 8.7 H D Magnesium 1.9 Total Bilirubin 1.0 AST 98 H ALT 121 H Alkaline Phosphatase 103 Total Protein 6.1 L D Albumin 2.0 L 04/21/18 04/21/18 04/22/18 14:52 17:09 03:15 Sodium 141 Potassium 3.3 L Chloride 101 Carbon Dioxide 23.7 Anion Gap 16 H BUN 72 H Creatinine 5.91 H Estimated GFR 7 L POC Glucose 107 119 H Random Glucose 88 Calcium 7.0 L* Calcium Adj for Albumin 8.4 L Phosphorus 8.0 H Magnesium 1.8 Total Bilirubin 0.8 AST 68 H ALT 93 H Alkaline Phosphatase 77 Total Protein 6.0 L Albumin 2.3 L Imaging: ITS Impressions Head CT 04/14/18 09:44 CONCLUSION: 1. 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 2. No evidence of acute infarct, hemorrhage, mass or edema. 3. No significant change compared to 04/12/2017. . Abdomen/Pelvis CT 04/14/18 10:59 CONCLUSION: 1. Distended gallbladder with cholelithiasis and minimal gas in the fundus. There is no significant pericholecystic fluid or inflammation. 2. Simple left renal cyst. 3. Bibasilar airspace disease. Liver Ultrasound 04/14/18 12:44 CONCLUSION: 1. Gallbladder contains sludge and stones. However, no additional findings are present to definitively indicate acute cholecystitis. 2. Common bile duct is enlarged but contains no visible stone. Given the pain one could consider MRCP for further evaluation of the common duct stone as a cause for the duct dilatation in right upper quadrant pain. 3. Atrophic right kidney with changes suggesting chronic medical renal disease. There is a complex cystic lesion in the mid kidney and renal sinus measuring up to 3.5 cm. At some point ideally be further characterized with renal protocol MRI with and without intravenous contrast. This should be performed on an elective basis when condition permits. Extremity Arterial Study 04/15/18 00:00 CONCLUSION: 1. Significantly limited examination due to unobtainable pressures in the forearms bilaterally. 2. Unobtainable pressures and absence of waveforms in the left hand. Cannot exclude steal from patient's left upper extremity brachiobasilic fistula. Upper Extremity Ultrasound 04/15/18 00:00 CONCLUSION: Patent left AV fistula. Venous Doppler Study 04/15/18 00:00 CONCLUSION: No evidence of DVT. Cholangiopancreatography MRI 04/16/18 07:10 CONCLUSION: 1. Cholelithiasis with multiple small gallstones layering dependently. There is no gallbladder wall thickening or inflammatory change. No gas is visualized on the MRI. 2. Common bile duct measuring up to 1 cm with no filling defects or mass. This could represent distal obstruction or prior passage of stones. 3. Multiple benign-appearing small cystic structures in the pancreas. 4. Bilateral simple renal cysts as well as a more complex right parapelvic cyst. GI Bleed Scan Nuclear Medicine 04/20/18 00:00 CONCLUSION: 1. Negative for gastrointestinal hemorrhage. Chest X-Ray 04/20/18 06:00 CONCLUSION: Mild consolidation or atelectasis at the medial right base which appears to be improving. Physical Exam: GENERAL: Awake, responding, NAD SKIN: Cool and dry, no generalized rash HEAD: Atraumatic. Normocephalic. No temporal or scalp tenderness. EYES: Pupils equal round and reactive. Scleral icterus. No injection or drainage. No petechia ENT: Dry oral mucosa NECK: Trachea midline. Supple, nontender, no meningeal signs. CARDIOVASCULAR: HS audible. RESPIRATORY: Air entry equal bilaterally. Decreased BS at bases GASTROINTESTINAL: Abdomen soft, not distended, tender in RUQ, no guarding, no rebound MUSCULOSKELETAL: Lower Extremities with no evidence of infection. Left AV fistula site ok. Left fingers bluish hue, cold clammy, looks slightly less blue NEUROLOGICAL: Awake, following commands Psych: cooperative IV line sites ok. HD cath Assessment and Plan - Plan Severe Sepsis Probable acute emphysematous cholecystitis (CT findings and RUQ tenderness) CKD Attempted PD catheter placement in 01/2018. AV fistula LUE placed on 01/22/2018. Cyanosis L hand, ?steal syndrome - being evaluated GIB Acute metabolic encephalopathy: sepsis, metabolic. Recs: Continue Zosyn IV Follow temps Monitor progress. Vascular evaluation LUE on hold due to GIB D/W RN
--- NOTE | 2018-04-22 11:44 | P.PNVS ---
Subjective Subjective/Hospital Course: Alert this morning Left upper extremity pain is controlled Objective Vital Signs / I&O: Vital Signs 04/21/18 12:00 04/21/18 13:20 04/21/18 13:30 Temperature 97.6 F Pulse Rate 62 69 71 Respiratory Rate 12 18 18 Blood Pressure 122/53 L 114/52 L 122/59 L Pulse Oximetry 100 97 97 04/21/18 13:40 04/21/18 13:42 04/21/18 13:43 Temperature Pulse Rate 71 66 Respiratory Rate 10 L Blood Pressure 134/57 L Pulse Oximetry 97 97 97 04/21/18 14:00 04/21/18 15:00 04/21/18 15:02 Temperature Pulse Rate 67 69 66 Respiratory Rate 9 L 16 12 Blood Pressure 144/56 H 136/53 L Pulse Oximetry 99 97 97 04/21/18 16:00 04/21/18 16:01 04/21/18 16:03 Temperature 98.3 F Pulse Rate 62 62 64 Respiratory Rate 16 17 22 Blood Pressure 127/50 L 127/50 L Pulse Oximetry 99 99 04/21/18 17:00 04/21/18 18:00 04/21/18 18:01 Temperature Pulse Rate 68 59 L 59 L Respiratory Rate 12 16 18 Blood Pressure 129/58 L 123/49 L Pulse Oximetry 98 98 98 04/21/18 19:00 04/21/18 19:01 04/21/18 19:57 Temperature Pulse Rate 59 L 59 L 57 L Respiratory Rate 16 17 14 Blood Pressure 125/51 L Pulse Oximetry 100 100 96 04/21/18 20:00 04/21/18 21:00 04/21/18 22:00 Temperature Pulse Rate 57 L 68 68 Respiratory Rate 15 13 15 Blood Pressure 121/50 L 129/56 L 129/55 L Pulse Oximetry 97 99 98 04/21/18 23:00 04/21/18 23:01 04/21/18 23:22 Temperature Pulse Rate 58 L 59 L 57 L Respiratory Rate 13 11 L 16 Blood Pressure 129/49 L Pulse Oximetry 99 99 04/22/18 00:00 04/22/18 00:01 04/22/18 01:00 Temperature Pulse Rate 58 L 58 L 59 L Respiratory Rate 15 15 14 Blood Pressure 121/46 L 115/45 L Pulse Oximetry 97 98 98 04/22/18 02:00 04/22/18 03:00 04/22/18 04:00 Temperature Pulse Rate 58 L 56 L 62 Respiratory Rate 16 13 15 Blood Pressure 114/48 L 121/56 L 123/51 L Pulse Oximetry 98 97 98 04/22/18 05:00 04/22/18 06:00 04/22/18 07:00 Temperature Pulse Rate 57 L 58 L Respiratory Rate 15 13 Blood Pressure 112/48 L 119/53 L Pulse Oximetry 98 98 98 04/22/18 07:29 04/22/18 07:35 04/22/18 07:54 Temperature Pulse Rate 62 Respiratory Rate 16 16 14 Blood Pressure Pulse Oximetry 98 04/22/18 08:00 04/22/18 09:00 Temperature 97.8 F Pulse Rate 60 70 Respiratory Rate 15 Blood Pressure 120/52 L Pulse Oximetry 98 Intake & Output 04/21/18 04/22/18 04/22/18 18:59 06:59 18:59 Intake Total 500 / 500 450 / 450 150 / 150 Output Total 2500 / 2500 Balance -1999 / -1999 450 / 450 150 / 150 Weight 83.5 kg Intake: IV 300 / 300 200 / 200 150 / 150 Protonix Inj 80 MG In NS Inj 100 / 100 100 / 100 100 / 100 100 ML @ 10 mls/hr IV.CONT Q10H [facility] Rx#:[id number] Flexbumin 25% Inj 100 ML @ 60 100 / 100 mls/hr IV.SIG WITH DIALYSIS PRN Rx#:[id number] Zosyn 2.25 GM Premix 50 ML @ 100 / 100 100 / 100 50 / 50 100 mls/hr IV.SIG Q6H [facility] Rx#: [id number] Oral 0 / 0 150 / 150 Anesthesia Amount 200 / 200 Other 100 / 100 Output: Urine 0 / 0 Hemodialysis Amount 2500 / 2500 Other: # Incontinent Voids 2 Date of Last Bowel Movement 04/21/18 04/20/18 04/20/18 # Bowel Movements 2 # Incontinent Bowel Movements 2 Physical Exam: Left hand is viable with good radial and ulnar signals. Laboratory Results - last 24 hr 04/21/18 04/21/18 04/21/18 14:52 17:09 18:10 WBC 11.1 H RBC 2.55 L Hgb 7.8 L Hct 23.1 L MCV 90.4 MCH 30.7 MCHC 33.9 RDW 19.3 H Plt Count 185 MPV 9.4 Prelim Diff (Auto) Neut % (Auto) Lymph % (Auto) [place] % (Auto) Eos % (Auto) Baso % (Auto) Neut # (Auto) Lymph # (Auto) [place] # (Auto) Eos # (Auto) Baso # (Auto) WBC Differential Seg Neuts % (Manual) Band Neuts % (Manual) Lymphocytes % (Manual) Monocytes % (Manual) Metamyelocytes % (Man) Myelocytes % (Man) Promyelocytes % (Man) Abs Neuts (Manual) Differential Comment Platelet Estimate Platelet Morphology Sodium Potassium Chloride Carbon Dioxide Anion Gap BUN Creatinine Estimated GFR POC Glucose 107 119 H Random Glucose Calcium Calcium Adj for Albumin Phosphorus Magnesium Total Bilirubin AST ALT Alkaline Phosphatase Total Protein Albumin 04/22/18 04/22/18 03:15 03:15 WBC 11.9 H RBC 2.54 L Hgb 7.8 L Hct 23.3 L MCV 91.8 MCH 30.6 MCHC 33.4 RDW 19.8 H Plt Count 182 MPV 9.7 Prelim Diff (Auto) Slide review pending Neut % (Auto) 76.6 H Lymph % (Auto) 15.9 [place] % (Auto) 5.6 Eos % (Auto) 1.4 Baso % (Auto) 0.5 Neut # (Auto) 9.1 H Lymph # (Auto) 1.9 [place] # (Auto) 0.7 Eos # (Auto) 0.2 Baso # (Auto) 0.1 WBC Differential Manual diff final Seg Neuts % (Manual) 71 H Band Neuts % (Manual) 6 Lymphocytes % (Manual) 16 Monocytes % (Manual) 3 Metamyelocytes % (Man) 2 H Myelocytes % (Man) 1 H Promyelocytes % (Man) 1 H Abs Neuts (Manual) 9.6 H Differential Comment . Platelet Estimate Normal Platelet Morphology Normal Sodium 141 Potassium 3.3 L Chloride 101 Carbon Dioxide 23.7 Anion Gap 16 H BUN 72 H Creatinine 5.91 H Estimated GFR 7 L POC Glucose Random Glucose 88 Calcium 7.0 L* Calcium Adj for Albumin 8.4 L Phosphorus 8.0 H Magnesium 1.8 Total Bilirubin 0.8 AST 68 H ALT 93 H Alkaline Phosphatase 77 Total Protein 6.0 L Albumin 2.3 L Impressions GI Bleed Scan Nuclear Medicine 12/14/18 00:00 CONCLUSION: 1. Negative for gastrointestinal hemorrhage. 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 Plan left upper extremity AV fistula ligation in a.m. Alexis Stuart MD [id number]
--- NOTE | 2018-04-22 11:54 | P.PNNP ---
Subjective Interval history: Patient is alert, no SOB, no abd. pain. Physical Exam Vital signs: Vital Signs 04/21/18 12:00 04/21/18 13:20 04/21/18 13:30 Temperature 97.6 F Pulse Rate 62 69 71 Respiratory Rate 12 18 18 Blood Pressure 122/53 L 114/52 L 122/59 L Pulse Oximetry 100 97 97 04/21/18 13:40 04/21/18 13:42 04/21/18 13:43 Temperature Pulse Rate 71 66 Respiratory Rate 10 L Blood Pressure 134/57 L Pulse Oximetry 97 97 97 04/21/18 14:00 04/21/18 15:00 04/21/18 15:02 Temperature Pulse Rate 67 69 66 Respiratory Rate 9 L 16 12 Blood Pressure 144/56 H 136/53 L Pulse Oximetry 99 97 97 04/21/18 16:00 04/21/18 16:01 04/21/18 16:03 Temperature 98.3 F Pulse Rate 62 62 64 Respiratory Rate 16 17 22 Blood Pressure 127/50 L 127/50 L Pulse Oximetry 99 99 04/21/18 17:00 04/21/18 18:00 04/21/18 18:01 Temperature Pulse Rate 68 59 L 59 L Respiratory Rate 12 16 18 Blood Pressure 129/58 L 123/49 L Pulse Oximetry 98 98 98 04/21/18 19:00 04/21/18 19:01 04/21/18 19:57 Temperature Pulse Rate 59 L 59 L 57 L Respiratory Rate 16 17 14 Blood Pressure 125/51 L Pulse Oximetry 100 100 96 04/21/18 20:00 04/21/18 21:00 04/21/18 22:00 Temperature Pulse Rate 57 L 68 68 Respiratory Rate 15 13 15 Blood Pressure 121/50 L 129/56 L 129/55 L Pulse Oximetry 97 99 98 04/21/18 23:00 04/21/18 23:01 04/21/18 23:22 Temperature Pulse Rate 58 L 59 L 57 L Respiratory Rate 13 11 L 16 Blood Pressure 129/49 L Pulse Oximetry 99 99 04/22/18 00:00 04/22/18 00:01 04/22/18 01:00 Temperature Pulse Rate 58 L 58 L 59 L Respiratory Rate 15 15 14 Blood Pressure 121/46 L 115/45 L Pulse Oximetry 97 98 98 04/22/18 02:00 04/22/18 03:00 04/22/18 04:00 Temperature Pulse Rate 58 L 56 L 62 Respiratory Rate 16 13 15 Blood Pressure 114/48 L 121/56 L 123/51 L Pulse Oximetry 98 97 98 04/22/18 05:00 04/22/18 06:00 04/22/18 07:00 Temperature Pulse Rate 57 L 58 L Respiratory Rate 15 13 Blood Pressure 112/48 L 119/53 L Pulse Oximetry 98 98 98 04/22/18 07:29 04/22/18 07:35 04/22/18 07:54 Temperature Pulse Rate 62 Respiratory Rate 16 16 14 Blood Pressure Pulse Oximetry 98 04/22/18 08:00 04/22/18 09:00 Temperature 97.8 F Pulse Rate 60 70 Respiratory Rate 15 Blood Pressure 120/52 L Pulse Oximetry 98 Intake & Output 04/21/18 04/22/18 04/22/18 18:59 06:59 18:59 Intake Total 500 / 500 450 / 450 150 / 150 Output Total 2500 / 2500 Balance -1999 / -1999 450 / 450 150 / 150 Weight 83.5 kg Intake: IV 300 / 300 200 / 200 150 / 150 Protonix Inj 80 MG In NS Inj 100 / 100 100 / 100 100 / 100 100 ML @ 10 mls/hr IV.CONT Q10H [facility] Rx#:[id number] Flexbumin 25% Inj 100 ML @ 60 100 / 100 mls/hr IV.SIG WITH DIALYSIS PRN Rx#:[id number] Zosyn 2.25 GM Premix 50 ML @ 100 / 100 100 / 100 50 / 50 100 mls/hr IV.SIG Q6H [facility] Rx#: [id number] Oral 0 / 0 150 / 150 Anesthesia Amount 200 / 200 Other 100 / 100 Output: Urine 0 / 0 Hemodialysis Amount 2500 / 2500 Other: # Incontinent Voids 2 Date of Last Bowel Movement 04/21/18 04/20/18 04/20/18 # Bowel Movements 2 # Incontinent Bowel Movements 2 Narrative: GENERAL: Well-nourished, not in distress. SKIN: Warm and dry. HEAD: Normocephalic. EYES: No scleral icterus. No injection or drainage. NECK: Supple, trachea midline. No JVD or lymphadenopathy. CARDIOVASCULAR: Regular rate and rhythm without murmurs, gallops, or rubs. RESPIRATORY: Breath sounds equal bilaterally. No accessory muscle use. GASTROINTESTINAL: Abdomen soft, nondistended. EXTREMITIES: Mild edema. Fistula left arm, left hand is cold NEUROLOGICAL: Alert, and oriented. - Urinary Catheter Management Indwelling Urethral Catheter Cath placed during this visit: yes, but has since been removed by the nurse Reason for continuing: Hourly intake/output Insertion date: 04/14/18 Insertion time: 10:35 Removal date: 04/14/18 Removal time: 17:30 Assessment and Plan - Assessment (1) ESRD (end stage renal disease) Code(s): N18.6 - End stage renal disease Status: Chronic Plan: Patient gets dialysis TTS. Patient had HD done yesterday, tolerated well. L arm AVF, avoid blood pressure or blood draws in left arm. 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 Left upper extremity AV fistula , with possible steal, vascular follow up noted. Monitor fluid and electrolytes. GI following and have EGD and colonoscopy done yesterday, results noted. Follow up by vascular noted, for AVF ligation in AM. (2) Hyperkalemia Code(s): E87.5 - Hyperkalemia Status: Acute Plan: Resolved after dialysis. (3) Acute metabolic encephalopathy Code(s): G93.41 - Metabolic encephalopathy Status: Acute (4) Acute hypoxemic respiratory failure Code(s): J96.01 - Acute respiratory failure with hypoxia Status: Acute Plan: s/p extubation. On O2 face mask. (5) Septic shock Code(s): A41.9 - Sepsis, unspecified organism; R65.21 - Severe sepsis with septic shock Status: Resolved Plan: On broad-spectrum antibiotic. ID on the case.
[2018-04-22 15:41] LABS: Hematocrit 24.7 % (35.0-46.0); Hemoglobin 8.3 gm/dL (11.6-15.3)
--- NOTE | 2018-04-22 16:50 | P.PNGI ---
Subjective Interval history: Patient awake and alert No reported bleeding Patient post EGD colonoscopy <HannahMatthew [email or web address] - Last Filed: 04/22/18 16:51> Physical Exam Vital signs: Vital Signs 04/21/18 17:00 04/21/18 18:00 04/21/18 18:01 Temperature Pulse Rate 68 59 L 59 L Respiratory Rate 12 16 18 Blood Pressure 129/58 L 123/49 L Pulse Oximetry 98 98 98 04/21/18 19:00 04/21/18 19:01 04/21/18 19:57 Temperature Pulse Rate 59 L 59 L 57 L Respiratory Rate 16 17 14 Blood Pressure 125/51 L Pulse Oximetry 100 100 96 04/21/18 20:00 04/21/18 21:00 04/21/18 22:00 Temperature Pulse Rate 57 L 68 68 Respiratory Rate 15 13 15 Blood Pressure 121/50 L 129/56 L 129/55 L Pulse Oximetry 97 99 98 04/21/18 23:00 04/21/18 23:01 04/21/18 23:22 Temperature Pulse Rate 58 L 59 L 57 L Respiratory Rate 13 11 L 16 Blood Pressure 129/49 L Pulse Oximetry 99 99 04/22/18 00:00 04/22/18 00:01 04/22/18 01:00 Temperature Pulse Rate 58 L 58 L 59 L Respiratory Rate 15 15 14 Blood Pressure 121/46 L 115/45 L Pulse Oximetry 97 98 98 04/22/18 02:00 04/22/18 03:00 04/22/18 04:00 Temperature Pulse Rate 58 L 56 L 62 Respiratory Rate 16 13 15 Blood Pressure 114/48 L 121/56 L 123/51 L Pulse Oximetry 98 97 98 04/22/18 05:00 04/22/18 06:00 04/22/18 07:00 Temperature Pulse Rate 57 L 58 L Respiratory Rate 15 13 Blood Pressure 112/48 L 119/53 L Pulse Oximetry 98 98 98 04/22/18 07:29 04/22/18 07:35 04/22/18 07:54 Temperature Pulse Rate 62 Respiratory Rate 16 16 14 Blood Pressure Pulse Oximetry 98 04/22/18 08:00 04/22/18 09:00 Temperature 97.8 F Pulse Rate 60 70 Respiratory Rate 15 Blood Pressure 120/52 L Pulse Oximetry 98 Intake & Output 04/21/18 04/22/18 04/22/18 18:59 06:59 18:59 Intake Total 500 / 500 450 / 450 150 / 150 Output Total 2500 / 2500 Balance -1999 / -1999 450 / 450 150 / 150 Weight 83.5 kg Intake: IV 300 / 300 200 / 200 150 / 150 Protonix Inj 80 MG In NS Inj 100 / 100 100 / 100 100 / 100 100 ML @ 10 mls/hr IV.CONT Q10H CIRILO Rx#:[id number] Flexbumin 25% Inj 100 ML @ 60 100 / 100 mls/hr IV.SIG WITH DIALYSIS PRN Rx#:[id number] Zosyn 2.25 GM Premix 50 ML @ 100 / 100 100 / 100 50 / 50 100 mls/hr IV.SIG Q6H CIRILO Rx#: [id number] Oral 0 / 0 150 / 150 Anesthesia Amount 200 / 200 Other 100 / 100 Output: Urine 0 / 0 Hemodialysis Amount 2500 / 2500 Other: # Incontinent Voids 2 Date of Last Bowel Movement 04/21/18 04/20/18 04/20/18 # Bowel Movements 2 # Incontinent Bowel Movements 2 - Constitutional no acute distress, chronically ill appearing, cooperative - Routine Respiratory Exam Present: CTA bilaterally. Absent: accessory muscle use - Routine Cardiovascular Exam Present: RRR - Routine Abdominal Exam Present: soft, normoactive bowel sounds. Absent: tenderness, distended - Routine Skin Exam Present: dry, warm - Routine Neurological Exam Present: alert - Urinary Catheter Management Indwelling Urethral Catheter Cath placed during this visit: yes, but has since been removed by the nurse Reason for continuing: Hourly intake/output Insertion date: 04/14/18 Insertion time: 10:35 Removal date: 04/14/18 Removal time: 17:30 <Kim Hannah - Last Filed: 04/22/18 16:51> Vital signs: Vital Signs 04/22/18 10:00 04/22/18 10:01 04/22/18 11:00 Temperature Pulse Rate 66 62 68 Respiratory Rate 19 17 16 Blood Pressure 126/52 L 133/58 L Pulse Oximetry 95 97 78 L 04/22/18 12:00 04/22/18 13:00 04/22/18 14:00 Temperature 97.8 F Pulse Rate 62 72 66 Respiratory Rate 14 17 24 Blood Pressure 126/57 L 133/60 131/55 L Pulse Oximetry 95 95 96 04/22/18 15:00 04/22/18 16:00 04/22/18 17:00 Temperature 98.3 F Pulse Rate 68 65 61 Respiratory Rate 20 11 L 14 Blood Pressure 122/53 L 124/51 L Pulse Oximetry 97 95 96 04/22/18 17:01 04/22/18 18:00 04/22/18 18:01 Temperature Pulse Rate 63 68 66 Respiratory Rate 22 26 H 22 Blood Pressure 131/49 L 129/49 L Pulse Oximetry 97 96 98 04/22/18 19:00 04/22/18 19:01 04/22/18 20:00 Temperature 98.7 F Pulse Rate 64 66 64 Respiratory Rate 19 14 13 Blood Pressure 113/45 L 109/46 L Pulse Oximetry 98 97 96 04/22/18 20:15 04/22/18 21:00 04/22/18 21:01 Temperature Pulse Rate 61 61 Respiratory Rate 14 16 Blood Pressure 104/39 L Pulse Oximetry 97 100 100 04/22/18 21:26 04/22/18 22:00 04/22/18 22:01 Temperature Pulse Rate 56 L 59 L Respiratory Rate 18 15 15 Blood Pressure 104/39 L Pulse Oximetry 100 100 04/22/18 22:03 04/22/18 22:31 04/22/18 23:00 Temperature Pulse Rate 57 L 54 L 58 L Respiratory Rate 15 13 14 Blood Pressure 90/39 L 95/45 L Pulse Oximetry 98 92 L 96 04/22/18 23:01 04/22/18 23:31 04/23/18 00:00 Temperature Pulse Rate 58 L 57 L 61 Respiratory Rate 13 15 19 Blood Pressure 100/50 L 103/46 L Pulse Oximetry 96 97 96 04/23/18 00:01 04/23/18 00:31 04/23/18 01:00 Temperature Pulse Rate 64 58 L 70 Respiratory Rate 31 H 17 Blood Pressure 117/49 L 113/44 L Pulse Oximetry 97 97 04/23/18 01:01 04/23/18 01:14 04/23/18 01:31 Temperature 97.4 F L Pulse Rate 60 61 Respiratory Rate 10 L 19 16 Blood Pressure 107/62 150/66 H Pulse Oximetry 96 90 L 04/23/18 02:00 04/23/18 02:30 04/23/18 02:46 Temperature Pulse Rate 65 66 Respiratory Rate 17 16 9 L Blood Pressure 145/58 H 142/95 H Pulse Oximetry 97 97 04/23/18 03:00 04/23/18 03:01 04/23/18 04:00 Temperature 97.1 F L Pulse Rate 64 61 62 Respiratory Rate 14 12 19 Blood Pressure 130/53 L 120/53 L Pulse Oximetry 97 98 97 04/23/18 07:00 04/23/18 08:00 Temperature 98.0 F Pulse Rate 67 Respiratory Rate 18 Blood Pressure 123/58 L Pulse Oximetry 98 100 Intake & Output 04/22/18 04/23/18 04/23/18 18:59 06:59 18:59 Intake Total 1400 / 1400 1020 / 1020 50 / 50 Balance 1400 / 1400 1020 / 1020 50 / 50 Weight 68.9 kg Intake: IV 200 / 200 300 / 300 50 / 50 Protonix Inj 80 MG In NS Inj 100 / 100 200 / 200 100 ML @ 10 mls/hr IV.CONT Q10H CIRILO Rx#:[id number] Zosyn 2.25 GM Premix 50 ML @ 100 / 100 100 / 100 50 / 50 100 mls/hr IV.SIG Q6H CIRILO Rx#: [id number] Oral 1200 / 1200 720 / 720 Other: # Voids 4 # Incontinent Voids 2 Date of Last Bowel Movement 04/22/18 04/22/18 04/22/18 # Bowel Movements 4 - Urinary Catheter Management Indwelling Urethral Catheter Cath placed during this visit: no <Matti Wharton - Last Filed: 04/23/18 09:26> Results - Labs CBC & Chem 7: 04/22/18 15:20 04/22/18 03:15 Laboratory Results - last 24 hr 04/21/18 04/21/18 04/22/18 17:09 18:10 03:15 WBC 11.1 H 11.9 H RBC 2.55 L 2.54 L Hgb 7.8 L 7.8 L Hct 23.1 L 23.3 L MCV 90.4 91.8 MCH 30.7 30.6 MCHC 33.9 33.4 RDW 19.3 H 19.8 H Plt Count 185 182 MPV 9.4 9.7 Prelim Diff (Auto) Slide review pending Neut % (Auto) 76.6 H Lymph % (Auto) 15.9 [place] % (Auto) 5.6 Eos % (Auto) 1.4 Baso % (Auto) 0.5 Neut # (Auto) 9.1 H Lymph # (Auto) 1.9 [place] # (Auto) 0.7 Eos # (Auto) 0.2 Baso # (Auto) 0.1 WBC Differential Manual diff final Seg Neuts % (Manual) 71 H Band Neuts % (Manual) 6 Lymphocytes % (Manual) 16 Monocytes % (Manual) 3 Metamyelocytes % (Man) 2 H Myelocytes % (Man) 1 H Promyelocytes % (Man) 1 H Abs Neuts (Manual) 9.6 H Differential Comment . Platelet Estimate Normal Platelet Morphology Normal Sodium Potassium Chloride Carbon Dioxide Anion Gap BUN Creatinine Estimated GFR POC Glucose 119 H Random Glucose Calcium Calcium Adj for Albumin Phosphorus Magnesium Total Bilirubin AST ALT Alkaline Phosphatase Total Protein Albumin 04/22/18 04/22/18 04/22/18 03:15 11:50 15:20 WBC RBC Hgb 8.3 L Hct 24.7 L MCV MCH MCHC RDW Plt Count MPV Prelim Diff (Auto) Neut % (Auto) Lymph % (Auto) [place] % (Auto) Eos % (Auto) Baso % (Auto) Neut # (Auto) Lymph # (Auto) [place] # (Auto) Eos # (Auto) Baso # (Auto) WBC Differential Seg Neuts % (Manual) Band Neuts % (Manual) Lymphocytes % (Manual) Monocytes % (Manual) Metamyelocytes % (Man) Myelocytes % (Man) Promyelocytes % (Man) Abs Neuts (Manual) Differential Comment Platelet Estimate Platelet Morphology Sodium 141 Potassium 3.3 L Chloride 101 Carbon Dioxide 23.7 Anion Gap 16 H BUN 72 H Creatinine 5.91 H Estimated GFR 7 L POC Glucose 165 H Random Glucose 88 Calcium 7.0 L* Calcium Adj for Albumin 8.4 L Phosphorus 8.0 H Magnesium 1.8 Total Bilirubin 0.8 AST 68 H ALT 93 H Alkaline Phosphatase 77 Total Protein 6.0 L Albumin 2.3 L 04/22/18 16:37 WBC RBC Hgb Hct MCV MCH MCHC RDW Plt Count MPV Prelim Diff (Auto) Neut % (Auto) Lymph % (Auto) [place] % (Auto) Eos % (Auto) Baso % (Auto) Neut # (Auto) Lymph # (Auto) [place] # (Auto) Eos # (Auto) Baso # (Auto) WBC Differential Seg Neuts % (Manual) Band Neuts % (Manual) Lymphocytes % (Manual) Monocytes % (Manual) Metamyelocytes % (Man) Myelocytes % (Man) Promyelocytes % (Man) Abs Neuts (Manual) Differential Comment Platelet Estimate Platelet Morphology Sodium Potassium Chloride Carbon Dioxide Anion Gap BUN Creatinine Estimated GFR POC Glucose 215 H Random Glucose Calcium Calcium Adj for Albumin Phosphorus Magnesium Total Bilirubin AST ALT Alkaline Phosphatase Total Protein Albumin <Kim Hannah - Last Filed: 04/22/18 16:51> - Labs CBC & Chem 7: 04/23/18 04:31 04/23/18 04:31 Laboratory Results - last 24 hr 04/20/18 04/22/18 04/22/18 07:55 11:50 15:20 WBC RBC Hgb 8.3 L Hct 24.7 L MCV MCH MCHC RDW Plt Count MPV Prelim Diff (Auto) Neut % (Auto) Lymph % (Auto) [place] % (Auto) Eos % (Auto) Baso % (Auto) Neut # (Auto) Lymph # (Auto) [place] # (Auto) Eos # (Auto) Baso # (Auto) Differential Comment PT INR APTT Sodium Potassium Chloride Carbon Dioxide Anion Gap BUN Creatinine Estimated GFR POC Glucose 165 H Random Glucose Calcium Calcium Adj for Albumin Phosphorus Magnesium Total Bilirubin AST ALT Alkaline Phosphatase Total Protein Albumin MTS Gel Crossmatch See Detail 04/22/18 04/22/18 04/22/18 16:37 23:13 23:27 WBC RBC Hgb 8.0 L Hct 23.3 L MCV MCH MCHC RDW Plt Count MPV Prelim Diff (Auto) Neut % (Auto) Lymph % (Auto) [place] % (Auto) Eos % (Auto) Baso % (Auto) Neut # (Auto) Lymph # (Auto) [place] # (Auto) Eos # (Auto) Baso # (Auto) Differential Comment PT INR APTT Sodium Potassium Chloride Carbon Dioxide Anion Gap BUN Creatinine Estimated GFR POC Glucose 215 H 108 Random Glucose Calcium Calcium Adj for Albumin Phosphorus Magnesium Total Bilirubin AST ALT Alkaline Phosphatase Total Protein Albumin MTS Gel Crossmatch 04/23/18 04/23/18 04/23/18 04:31 04:31 04:31 WBC 16.9 H RBC 2.65 L Hgb 8.3 L Hct 24.1 L MCV 90.8 MCH 31.2 MCHC 34.3 RDW 18.8 H Plt Count 242 D MPV 9.9 Prelim Diff (Auto) Slide review pending Neut % (Auto) 81.9 H Lymph % (Auto) 11.4 [place] % (Auto) 4.5 Eos % (Auto) 1.8 Baso % (Auto) 0.4 Neut # (Auto) 13.8 H Lymph # (Auto) 1.9 [place] # (Auto) 0.8 Eos # (Auto) 0.3 Baso # (Auto) 0.1 Differential Comment . PT 11.2 INR 1.1 APTT 26.5 Sodium 139 Potassium 3.1 L Chloride 98 Carbon Dioxide 22.6 Anion Gap 18 H BUN 87 H Creatinine 7.00 H Estimated GFR 6 L POC Glucose Random Glucose 93 Calcium 6.8 L* Calcium Adj for Albumin 8.2 L Phosphorus 7.4 H Magnesium 1.8 Total Bilirubin 0.8 AST 68 H ALT 82 H Alkaline Phosphatase 75 Total Protein 6.1 L Albumin 2.3 L MTS Gel Crossmatch - Imaging Impressions Chest X-Ray 04/23/18 00:00 CONCLUSION: 1. Stable small area of opacity right infrahilar region, stable from prior. 2. Loss of delineation of the lateral left hemidiaphragm, a new finding, suggestive of either pleural effusion or a small infiltrate. <Matti Wharton - Last Filed: 04/23/18 09:26> Assessment and Plan - Plan This is a 72-year-old female who entered the hospital on 04/14/2018 after being found unresponsive per her roommate. According to the record and staff patient was intubated in the emergency room setting and received multiple lab work and aggressive therapy there was a CAT scan that showed distended gallbladder with cholelithiasis and liver ultrasound that showed positive cholelithiasis and gallbladder sludge and a small amount of air in the fundus of the gallbladder. Lab work was reviewed which showed initial hemoglobin 12.6 now decreased to 10.6 , initial WBC count 12.5 now normalized to 8.4, PT/INR 1.3, lipase 47, bilirubin 0.7, AST 1050, ALT 8:06 AM positive troponin IV 0.35. Gastroenterology was consulted to assist in her plan of care but it is noted after examination of the patient and per the record patient is acutely critically ill in the intensive care setting. There is currently no family present but according to staff patient has a daughter and a son. Transaminitis, these elevated liver enzymes could be related to shock liver since patient was found unresponsive. She will need continuing monitoring of these labs for any acute changes Anemia current hemoglobin 10.6 which is a mild decrease from admission. Patient has NG tube which shows dark bilious fluid return but also some possible coffee-ground debris noted initially in the NG tube. We will need to rule out any GI bleeding Ultrasound of the liver did show positive gallstones and sludge and recommendation was for MRCP but this will need to be done when patient is stable. MRCP has been ordered but probably on hold for this p.m. History of end-stage renal disease on hemodialysis Monday and Monday schedule. Patient has had cultures done for possible sepsis Left upper extremity is cool to the touch right upper extremity is warm, both lower extremities are cool. Possible non-STEMI cardiology involved Possible gallbladder disease rule out Ultrasound gallbladder contains sludge and stones. However, no additional findings are present to definitively indicate acute cholecystitis. Common bile duct is enlarged but contains no visible stone. Given the pain one could consider MRCP for further evaluation of the common duct stone as a cause for the duct dilatation in right upper quadrant pain. Atrophic right kidney with changes suggesting chronic medical renal disease. There is a complex cystic lesion in the mid kidney and renal sinus measuring up to 3.5 cm. At some point ideally be further characterized with renal protocol MRI with and without intravenous contrast. This should be performed on an elective basis when condition permits. 04/16/2018 -Patient intubated and mechanically ventilated. Plan for MRCP today. Orogastric tube to low intermittent suction 100 mL's of dark green bilious fluid noted. No obvious bleeding noted. -Transaminitis-likely due to shock liver as patient was found unresponsive, will continue to monitor LFTs -WBC 12.4 hemoglobin 10.3 hematocrit 31.6 INR 1.3 total bilirubin 0.9 AST 475 ALT 632 alk phos 58 ammonia less than 10 -04/16/2018 MRCP revealed the following findings: 1. Cholelithiasis with multiple small gallstones layering dependently. There is no gallbladder wall thickening or inflammatory change. No gas is visualized on the MRI. 2. Common bile duct measuring up to 1 cm with no filling defects or mass. This could represent distal obstruction or prior passage of stones. 3. Multiple benign-appearing small cystic structures in the pancreas. 4. Bilateral simple renal cysts as well as a more complex right parapelvic cyst. 04/17/2018 Intubated and mechanically ventilated. Orogastric tube to low intermittent wall suction, minimal scant drainage dark green bilious fluid. No obvious bleeding noted. Transaminitis--trending down, total bilirubin 1.0 AST 423 ALT 560 alk phos 74 WBC 10.6 hemoglobin 9.2 hematocrit 27.1 Decrease probability of choledocholithiasis, likely shock liver in view of liver panel Continue present conservative treatment 04/18/2018 Extubated on oxygen simple mask. No bleeding noted WBC 8.8 hemoglobin 9.7 hematocrit 29.3 platelet count 206 Total bilirubin 1.3 AST 217 alk phos 95 ALT 460 ammonia 16 lipase 217 04/20/2018 Patient resting soundly with eyes closed, awakens easily Denies abdominal pain. GI notified due to patient passing large amounts of maroon colored stool with clots overnight. WBC 10.2 hemoglobin 6.8 hematocrit 21.1 platelet count 225 INR 1.3 Total bilirubin 1.0 AST 66 ALT 168 alk phos 155 improving. 04/22/2018 Patient awake and alert Denies abdominal pain nausea or vomiting No reported bleeding WBC 11.9 hemoglobin 7.8 hematocrit 23.3 stable platelet count 182 04/21/2018 EGD findings-Esophagus: Normal mucosa, Z line at 35 cm Stomach: mild gastritis seen in the antrum. Biopsies taken from the antrum and body. No ulcers or erosions. No evidence of bleeding. Duodenum: normal bulb through second portion. 04/21/2018 colonoscopy findings-colonoscopy, prep was not adequate due to red blood and maroon blood throughout colon. Terminal ileum : red blood was seen in the terminal ileum for 10 cm. Colon: Moderate diverticulosis seen throughout the colon. Red and maroon stool seen throughout the colon Rectum: Maroon and black blood seen. Plan -Clear liquid diet -Monitor for bleeding -Monitor labs- hemoglobin and hematocrit -Transfuse as needed -Continue PPI -Stat bleeding scan for any active bleeding -Video capsule endoscopy as outpatient -Supportive care -Further recommendations to follow This patient has been seen by myself and Dr. Wharton and this note is written on his behalf - Attending Attestation Dr. Wharton <Kim Hannah - Last Filed: 12/16/18 16:51> - Attending Attestation Patient seen and examined. Agree with above. <Matti Wharton - Last Filed: 04/23/18 09:26>
[2018-04-22 23:37] LABS: Hematocrit 23.3 % (35.0-46.0)
[2018-04-23] MEDS ORDERED: Gabapentin 100 MG Capsule PO ONE (02:00)
[2018-04-23] MEDS: Artificial Tears Opth Drops 15 ML Bottle EACH EYE SCH ×3 (02:04→18:45)
[2018-04-23] MEDS: Piperacil/Tazo 2.25 GM Premix 50 ML IV.SIG SCH ×4 (02:04→19:58)
[2018-04-23] MEDS: Oral Hygiene Kit OROPHARYNG SCH ×3 (04:24→15:49)
--- NOTE | 2018-04-23 04:49 | XR ---
EXAM DATE: 04/23/2018 4:38 AM EST AGE/SEX: 72 years / Female INDICATIONS: Shortness of breath, possible pulmonary disease. CLINICAL DATA: This is the patient's subsequent encounter. Patient reports that signs and symptoms h ave been present for 1 week and indicates a pain score of Nonresponsive. MEDICAL/SURGICAL HISTORY: Diabetes. Gastroesophageal reflux disease. Hypertension. End stag e renal disease. Stroke. Non-responsive. COMPARISON: [facility] [place] 1V [place]INGLE [place], 04/20/2018. [place], CHEST 1V SINGLE AP, 04/18/2018. [facility] [place] [address] 1V SINGLE AP, 04/17/2018. . FINDINGS: Right double-lumen central line tip is projected within the right atrium. Interval removal of gastric tube. The lungs are symmetrically aerated. There is persistent mild indistinctness of the right infr ahilar structures without loss of delineation of the right heart border or right hemidiaphragm. There is a faint opacity near the left costophrenic angle with loss of delineation of the lateral left hem idiaphragm.. The heart is normal in size. Moderate tortuosity thoracic aorta. CONCLUSION: 1. Stable small area of opacity right infrahilar region, stable from prior. 2. Loss of delineation of the lateral left hemidiaphragm, a new finding, suggestive of either pleura l effusion or a small infiltrate. Electronically signed by: Danny Freedman MD Board Certified Radiologist 04/23/2018 4:48 AM EST
[2018-04-23 06:05] LABS: Baso # (Auto) 0.1 th/mm3 (0.0-0.2); Baso % (Auto) 0.4 % (0.0-2.0); Eos # (Auto) 0.3 th/mm3 (0.0-0.4); Eos % (Auto) 1.8 % (0.0-4.0); Hematocrit 24.1 % (35.0-46.0); Hemoglobin 8.3 gm/dL (11.6-15.3); Lymph # (Auto) 1.9 th/mm3 (1.0-4.8); Lymph % (Auto) 11.4 % (9.0-44.0); Mean Corpuscular HGB Conc 34.3 % (32.0-36.0); Mean Corpuscular Hemoglobin 31.2 pg (27.0-34.0); Mean Corpuscular Volume 90.8 fL (80.0-100.0); Mean Platelet Volume 9.9 fL (7.0-11.0); Mono # (Auto) 0.8 th/mm3 (0.0-0.9); Mono % (Auto) 4.5 % (0.0-8.0); Neut # (Auto) 13.8 th/mm3 (1.8-7.7); Neut % (Auto) 81.9 % (16.0-70.0); Platelet Count 242 th/mm3 (150-450); Red Blood Count 2.65 mil/mm3 (4.00-5.30); Red Cell Distribution Width 18.8 % (11.6-17.2); White Blood Count 16.9 th/mm3 (4.0-11.0)
[2018-04-23 06:23] LABS: Activated Partial Thrombo Time 26.5 sec (23.4-31.7); INR 1.1 Ratio; Prothrombin Time 11.2 sec (9.8-11.6)
[2018-04-23 06:27] LABS: Albumin 2.3 g/dL (3.4-5.0); Calcium 6.8 mg/dL (8.5-10.1); Carbon Dioxide 22.6 meq/L (21.0-32.0); Magnesium 1.8 mg/dL (1.5-2.5); Phosphorus 7.4 mg/dL (2.5-4.9); Potassium 3.1 meq/L (3.5-5.1); Total Protein 6.1 g/dL (6.4-8.2)
[2018-04-23] MEDS: Insulin NovoLOG Aspart Correctional Sugar Inj SQ SCH ×3 (06:34→17:20)
[2018-04-23] MEDS: Pantoprazole Inj 80 MG in Sodium Chlor 0.9% Inj 100 ML IV.CONT SCH (06:35)
[2018-04-23] MEDS: Dextrose 5%/NaCl 0.45% Inj 1,000 ML IV.CONT SCH (07:19)
[2018-04-23] MEDS: Chlorhexidine 0.12% Oral Kit 15 ML UDC OROPHARYNG SCH ×2 (07:20→19:57)
[2018-04-23] MEDS: Calcium Acetate 667 MG Capsule NG/OG SCH ×3 (08:10→17:16)
[2018-04-23] MEDS: Mupirocin 2% Nasal Oint Topical Syringe EACH NARE SCH ×2 (08:11→20:02)
[2018-04-23] MEDS: dilTIAZem 30 MG Tablet PO SCH ×4 (08:11→20:02)
[2018-04-23] MEDS ORDERED: fentaNYL Citrate Inj 250 MCG/5 ML Ampul ONE (08:19)
[2018-04-23] MEDS ORDERED: Potassium Chlor 10 mEq Premix 10 MEQ/100 ML PIGGYBACK IV.SIG ONE (09:15)
--- NOTE | 2018-04-23 10:27 | P.PNNP ---
Subjective Interval history: Patient was seen, no distress, complaints of wanting to go home. Left upper extremity AV fistula, with possible steal, AVF ligation today. <Nehemiah Reyes - Last Filed: 04/23/18 10:27> Physical Exam Vital signs: Vital Signs 04/22/18 11:00 04/22/18 12:00 04/22/18 13:00 Temperature 97.8 F Pulse Rate 68 62 72 Respiratory Rate 16 14 17 Blood Pressure 133/58 L 126/57 L 133/60 Pulse Oximetry 78 L 95 95 04/22/18 14:00 04/22/18 15:00 04/22/18 16:00 Temperature 98.3 F Pulse Rate 66 68 65 Respiratory Rate 24 20 11 L Blood Pressure 131/55 L 122/53 L 124/51 L Pulse Oximetry 96 97 95 04/22/18 17:00 04/22/18 17:01 04/22/18 18:00 Temperature Pulse Rate 61 63 68 Respiratory Rate 14 22 26 H Blood Pressure 131/49 L Pulse Oximetry 96 97 96 04/22/18 18:01 04/22/18 19:00 04/22/18 19:01 Temperature Pulse Rate 66 64 66 Respiratory Rate 22 19 14 Blood Pressure 129/49 L 113/45 L Pulse Oximetry 98 98 97 04/22/18 20:00 04/22/18 20:15 04/22/18 21:00 Temperature 98.7 F Pulse Rate 64 61 Respiratory Rate 13 14 Blood Pressure 109/46 L Pulse Oximetry 96 97 100 04/22/18 21:01 04/22/18 21:26 04/22/18 22:00 Temperature Pulse Rate 61 56 L Respiratory Rate 16 18 15 Blood Pressure 104/39 L Pulse Oximetry 100 100 04/22/18 22:01 04/22/18 22:03 04/22/18 22:31 Temperature Pulse Rate 59 L 57 L 54 L Respiratory Rate 15 15 13 Blood Pressure 104/39 L 90/39 L 95/45 L Pulse Oximetry 100 98 92 L 04/22/18 23:00 04/22/18 23:01 04/22/18 23:31 Temperature Pulse Rate 58 L 58 L 57 L Respiratory Rate 14 13 15 Blood Pressure 100/50 L 103/46 L Pulse Oximetry 96 96 97 04/23/18 00:00 04/23/18 00:01 04/23/18 00:31 Temperature Pulse Rate 61 64 58 L Respiratory Rate 19 31 H 17 Blood Pressure 117/49 L 113/44 L Pulse Oximetry 96 97 97 04/23/18 01:00 04/23/18 01:01 04/23/18 01:14 Temperature 97.4 F L Pulse Rate 70 60 Respiratory Rate 10 L 19 Blood Pressure 107/62 Pulse Oximetry 96 04/23/18 01:31 04/23/18 02:00 04/23/18 02:30 Temperature Pulse Rate 61 65 66 Respiratory Rate 16 17 16 Blood Pressure 150/66 H 145/58 H 142/95 H Pulse Oximetry 90 L 97 97 04/23/18 02:46 04/23/18 03:00 04/23/18 03:01 Temperature Pulse Rate 64 61 Respiratory Rate 9 L 14 12 Blood Pressure 130/53 L Pulse Oximetry 97 98 04/23/18 04:00 04/23/18 07:00 04/23/18 08:00 Temperature 97.1 F L 98.0 F Pulse Rate 62 67 Respiratory Rate 19 18 Blood Pressure 120/53 L 123/58 L Pulse Oximetry 97 98 100 04/23/18 09:45 Temperature 97.5 F L Pulse Rate 69 Respiratory Rate 16 Blood Pressure 166/72 H Pulse Oximetry 95 Intake & Output 04/22/18 04/23/18 04/23/18 18:59 06:59 18:59 Intake Total 1400 / 1400 1020 / 1020 50 / 50 Balance 1400 / 1400 1020 / 1020 50 / 50 Weight 68.9 kg Intake: IV 200 / 200 300 / 300 50 / 50 Protonix Inj 80 MG In NS Inj 100 / 100 200 / 200 100 ML @ 10 mls/hr IV.CONT Q10H [facility] Rx#:[id number] Zosyn 2.25 GM Premix 50 ML @ 100 / 100 100 / 100 50 / 50 100 mls/hr IV.SIG Q6H [facility] Rx#: [id number] Oral 1200 / 1200 720 / 720 Other: # Voids 4 # Incontinent Voids 2 Date of Last Bowel Movement 04/22/18 04/22/18 04/22/18 # Bowel Movements 4 Narrative: GENERAL: Well-nourished, not in distress. SKIN: Warm and dry. HEAD: Normocephalic. EYES: No scleral icterus. No injection or drainage. NECK: Supple, trachea midline. No JVD or lymphadenopathy. CARDIOVASCULAR: Regular rate and rhythm without murmurs, gallops, or rubs. RESPIRATORY: Breath sounds equal bilaterally. No accessory muscle use. GASTROINTESTINAL: Abdomen soft, nondistended. EXTREMITIES: Mild edema. Fistula left arm, left hand is cold NEUROLOGICAL: Alert, and oriented. - Urinary Catheter Management Indwelling Urethral Catheter Cath placed during this visit: yes, but has since been removed by the nurse Reason for continuing: Hourly intake/output Insertion date: 04/14/18 Insertion time: 10:35 Removal date: 04/14/18 Removal time: 17:30 <Nehemiah Reyes - Last Filed: 04/23/18 10:27> Vital signs: Vital Signs 04/23/18 09:45 04/23/18 12:15 04/23/18 12:40 Temperature 97.5 F L 97.8 F 97.8 F Pulse Rate 69 63 64 Respiratory Rate 16 17 17 Blood Pressure 166/72 H 128/56 L 133/74 Pulse Oximetry 95 98 98 04/23/18 14:00 04/23/18 16:00 04/23/18 18:00 Temperature 98.5 F Pulse Rate 68 71 60 Respiratory Rate 14 Blood Pressure 100/39 L Pulse Oximetry 100 04/23/18 20:00 04/23/18 21:29 04/23/18 22:00 Temperature 97.9 F Pulse Rate 67 67 Respiratory Rate 18 20 Blood Pressure 94/48 L Pulse Oximetry 100 04/23/18 23:43 04/24/18 00:00 04/24/18 02:00 Temperature 98 F Pulse Rate 65 64 Respiratory Rate 14 Blood Pressure 97/43 L Pulse Oximetry 100 98 04/24/18 04:00 04/24/18 06:00 Temperature 98.2 F Pulse Rate 66 63 Respiratory Rate 14 Blood Pressure 87/44 L Pulse Oximetry 100 Intake & Output 04/23/18 04/24/18 04/24/18 18:59 06:59 18:59 Intake Total 1410 / 1410 230 / 230 Output Total 10 / 10 Balance 1400 / 1400 230 / 230 Weight 70.6 kg Intake: IV 790 / 790 50 / 50 D5W/1/2 NS Inj 1,000 ML @ 42 500 / 500 mls/hr IV.CONT .[id number] [facility] Rx# :[id number] Protonix Inj 80 MG In NS Inj 90 / 90 100 ML @ 10 mls/hr IV.CONT Q10H [facility] Rx#:[id number] Zosyn 2.25 GM Premix 50 ML @ 100 / 100 50 / 50 100 mls/hr IV.SIG Q6H [facility] Rx#: [id number] KCl 10 mEq Premix Inj 10 meq In 100 / 100 100 ml @ 100 mls/hr IV.SIG NOW ONE Rx#:[id number] Oral 420 / 420 180 / 180 Anesthesia Amount 200 / 200 Output: Estimated Blood Loss Other: # Voids 1 0 Date of Last Bowel Movement 04/22/18 04/23/18 # Bowel Movements 1 0 - Urinary Catheter Management Indwelling Urethral Catheter Cath placed during this visit: no <Blake Michel - Last Filed: 04/24/18 08:15> Assessment and Plan - Assessment (1) ESRD (end stage renal disease) Code(s): N18.6 - End stage renal disease Status: Chronic Plan: Patient gets dialysis TTS. Patient to be dialyzed tomorrow. L arm AVF, avoid blood pressure or blood draws in left arm. Left upper extremity AV fistula , with possible steal, AVF ligation today. Monitor fluid and electrolytes. (2) Hyperkalemia Code(s): E87.5 - Hyperkalemia Status: Acute Plan: Resolved after dialysis. K is now 3.1, 10meq IV given. Monitor. (3) Acute metabolic encephalopathy Code(s): G93.41 - Metabolic encephalopathy Status: Acute (4) Acute hypoxemic respiratory failure Code(s): J96.01 - Acute respiratory failure with hypoxia Status: Acute Plan: s/p extubation. On O2 nasal cannula. (5) Septic shock Code(s): A41.9 - Sepsis, unspecified organism; R65.21 - Severe sepsis with septic shock Status: Resolved Plan: On broad-spectrum antibiotic. ID on the case. <Nehemiah Reyes - Last Filed: 04/23/18 10:27> - Assessment (1) ESRD (end stage renal disease) Code(s): N18.6 - End stage renal disease Status: Chronic (2) Hyperkalemia Code(s): E87.5 - Hyperkalemia Status: Acute (3) Acute metabolic encephalopathy Code(s): G93.41 - Metabolic encephalopathy Status: Acute (4) Acute hypoxemic respiratory failure Code(s): J96.01 - Acute respiratory failure with hypoxia Status: Acute (5) Septic shock Code(s): A41.9 - Sepsis, unspecified organism; R65.21 - Severe sepsis with septic shock Status: Resolved - Attending Attestation patient was seen and examined. Agree with above assessment and plan. She is unhappy with her current dialysis unit, we will attempt to transfer her to [facility]. <Blake Michel - Last Filed: 04/24/18 08:15>
[2018-04-23] MEDS ORDERED: Heparin 10,000 UNITS/10 ML Vial (for IV use) ONE (10:43)
[2018-04-23] MEDS ORDERED: Heparin/NS PF Inj 0 ML ONE (10:43)
[2018-04-23] MEDS ORDERED: Bupivacaine PF 0.5% Inj 10 ML Vial ONE (10:43)
[2018-04-23] MEDS ORDERED: Protamine Sulfate Inj 50 MG/5 ML Vial ONE (10:43)
[2018-04-23 11:07] LABS: Eosinophils 2 % (0-4); Lymphocytes 9 % (9-44); Monocytes 2 % (0-8); Platelet Estimate Normal (Normal); Platelet Morphology Normal (Normal)
--- NOTE | 2018-04-23 12:20 | P.OP ---
Preoperative Diagnosis: Left upper extremity steal syndrome Postoperative Diagnosis: Left upper extremity steal syndrome Date of procedure: 04/23/18 Procedure: Left upper extremity arteriovenous fistula ligation Anesthesia: MAC Surgeon: Alexis Sturat MD Estimated blood loss (mL): 5 Operation and Findings: The patient was taken to the operating room, laid supine on the OR table. After adequate sedation, the patient was prepped in the standard sterile fashion. Timeout was called with all members and they are in agreement. 1% lidocaine was injected along the scar from the initial surgery. An incision was made along the scar and dissection was taken down through the subcutaneous tissues electrocautery. The arteriovenous fistula was dissected. The fistula was ligated using an 0 silk suture x3. The wound was closed in multiple layers using Vicryl suture followed by Monocryl suture. Sterile dressing was applied. The patient was taken to recovery unit in stable condition. The patient had a palpable radial pulse at the end of the procedure.
[2018-04-23] MEDS: fentaNYL Citrate Inj 100 MCG/2 ML Ampul IV.PUSH PRN (13:37)
--- NOTE | 2018-04-23 14:56 | P.PNCC ---
Subjective Subjective Remarks/Hospital Course: Patient is a 72-year-old female with past medical history significant for previous strokes, TIA, end-stage renal disease on hemodialysis (Monday, Monday schedule), Left AV fistula on 01/2018, type 2 diabetes, and hypertension. EMS was called as her roommate found her unresponsive last seen normal yesterday night. IV 0.4 mg of Narcan was given without any response. Patient was intubated in the emergency department for airway protection, for a GCS 8. Lab work showed leukocytosis of 12,500 with a left shift of 90% neutrophilia, 29% bands. Lactic acid came back at 6. CMP showed potassium of 6.0 bicarb of 16.7, anion gap of 24, liver enzymes were markedly elevated AST 1992 ALT 758, CPK 475, troponin 5.21. EKG did not show any evidence of acute ST elevation. ABG shows pH of 7.19 PCO2 of 48 PaO2 of [address] abdomen pelvis showed distended gallbladder with cholelithiasis, also small amount of air in the fundus of the gallbladder. Critical care medicine was consulted for admission. I evaluated the patient in the emergency department. She is acutely ill critical appearing. Intermittently hypotensive. Dr. Vargas has placed a left subclavian central line. I will start Levophed if needed. Patient received Zosyn and Flagyl in the ED. I will place patient on vancomycin and Zosyn renally dosed. Pierre cultures have been sent. With the CT finding I contacted Dr. Cortes who requested stat ultrasound of the right upper quadrant. Also ID was consulted and I discussed with Dr. Montaño. Patient has healed scars probably few week old laparoscopic abdominal surgery, it is unclear what kind of surgery she had. Dr. Fermin consulted for an STEMI. Nephrology Dr. Gillette consulted for emergent hemodialysis 04/15 -T-max 101. Remains on broad-spectrum antibiotics. Noted cool left fingers not cyanotic but will check fistula Doppler and arterial Dopplers and venous Doppler left upper extremity. Central line placed left subclavian noted. 04/16: T-max 100.5. MRCP pending. Right upper lower extremity and left lower extremity remains warm. Cool left upper extremity. Has seen Dr. Wu for her left AV fistula in the past. Positive dopplerable/patent left AV fistula noted by Doppler 04/15. Downward trending liver function test. 04/17: Afebrile. Patient received 2 doses of digoxin due to A. fib with RVR. Currently normal sinus rhythm. Hypoglycemic overnight requiring D5 normal saline currently at 42 cc an hour. Off all vasopressors. Remains in normal sinus rhythm. Cardiology recommended IV diltiazem for paroxysmal atrial fibrillation. Will order. MRCP result results noted. 04/18: Afebrile. Patient extubated yesterday without complication. Currently resting on simple mask playing of pain but unknown source. Noted vascular surgery's note. 04/19: Afebrile. Remains on nasal cannula. More alert and interactive today. Will start tube feeds today. Speech evaluation for swallowing. Currently afebrile. No bowel movement. 04/20: Overnight, patient with several bright red problems per rectum. Continues to start on IV pantoprazole twice daily. Hemoglobin currently 7.4. Transfusing 2 units PRBCs now and sent for stat nuclear medicine bleeding scan. Patient appears to be hemodynamically stable but is very pale. Was plan for ligation of the left upper extremity AV fistula by vascular surgery but this will be placed on hold. Continues to moan in the room. 04/21: Negative bleeding scan overnight. Hemoglobin currently 8.4 after 2 units PRBCs. Actively undergoing hemodialysis currently. Plan for EGD and colonoscopy in the next 24-48 hours. Recheck hemoglobin at 1800 hrs. tonight.. She is much more lucid and interactive today. Subjective 04/22: Status post EGD and colonoscopy yesterday. EEG showed mild gastritis otherwise negative. Colonoscopy poor prep. Blood throughout the colon. Diverticulosis. Bleeding scan ordered but unable to perform as recently -. Hemoglobin remained stable at 7.8. She appears comfortable. Main complaint is pain in her left hand 04/23: Status post ligation left upper extremity AV fistula. Extremity warm and pink, good capillary refill. Protonix infusion continued. Clear liquid diet to be initiated per GI recommendations. Objective Vital Signs / I&O: Vital Signs 04/22/18 15:00 04/22/18 16:00 04/22/18 17:00 Temperature 98.3 F Pulse Rate 68 65 61 Respiratory Rate 20 11 L 14 Blood Pressure 122/53 L 124/51 L Pulse Oximetry 97 95 96 04/22/18 17:01 04/22/18 18:00 04/22/18 18:01 Temperature Pulse Rate 63 68 66 Respiratory Rate 22 26 H 22 Blood Pressure 131/49 L 129/49 L Pulse Oximetry 97 96 98 04/22/18 19:00 04/22/18 19:01 04/22/18 20:00 Temperature 98.7 F Pulse Rate 64 66 64 Respiratory Rate 19 14 13 Blood Pressure 113/45 L 109/46 L Pulse Oximetry 98 97 96 04/22/18 20:15 04/22/18 21:00 04/22/18 21:01 Temperature Pulse Rate 61 61 Respiratory Rate 14 16 Blood Pressure 104/39 L Pulse Oximetry 97 100 100 04/22/18 21:26 04/22/18 22:00 04/22/18 22:01 Temperature Pulse Rate 56 L 59 L Respiratory Rate 18 15 15 Blood Pressure 104/39 L Pulse Oximetry 100 100 04/22/18 22:03 04/22/18 22:31 04/22/18 23:00 Temperature Pulse Rate 57 L 54 L 58 L Respiratory Rate 15 13 14 Blood Pressure 90/39 L 95/45 L Pulse Oximetry 98 92 L 96 04/22/18 23:01 04/22/18 23:31 04/23/18 00:00 Temperature Pulse Rate 58 L 57 L 61 Respiratory Rate 13 15 19 Blood Pressure 100/50 L 103/46 L Pulse Oximetry 96 97 96 04/23/18 00:01 04/23/18 00:31 04/23/18 01:00 Temperature Pulse Rate 64 58 L 70 Respiratory Rate 31 H 17 Blood Pressure 117/49 L 113/44 L Pulse Oximetry 97 97 04/23/18 01:01 04/23/18 01:14 04/23/18 01:31 Temperature 97.4 F L Pulse Rate 60 61 Respiratory Rate 10 L 19 16 Blood Pressure 107/62 150/66 H Pulse Oximetry 96 90 L 04/23/18 02:00 04/23/18 02:30 04/23/18 02:46 Temperature Pulse Rate 65 66 Respiratory Rate 17 16 9 L Blood Pressure 145/58 H 142/95 H Pulse Oximetry 97 97 04/23/18 03:00 04/23/18 03:01 04/23/18 04:00 Temperature 97.1 F L Pulse Rate 64 61 62 Respiratory Rate 14 12 19 Blood Pressure 130/53 L 120/53 L Pulse Oximetry 97 98 97 04/23/18 07:00 04/23/18 08:00 04/23/18 09:45 Temperature 98.0 F 97.5 F L Pulse Rate 67 69 Respiratory Rate 18 16 Blood Pressure 123/58 L 166/72 H Pulse Oximetry 98 100 95 04/23/18 12:15 04/23/18 12:40 04/23/18 14:00 Temperature 97.8 F 97.8 F Pulse Rate 63 64 68 Respiratory Rate 17 17 Blood Pressure 128/56 L 133/74 Pulse Oximetry 98 98 Intake & Output 04/22/18 04/23/18 04/23/18 18:59 06:59 18:59 Intake Total 1400 / 1400 1020 / 1020 350 / 350 Output Total 10 10 Balance 1400 / 1400 1020 / 1020 340 / 340 Weight 68.9 kg Intake: IV 200 / 200 300 / 300 150 / 150 Protonix Inj 80 MG In NS Inj 100 / 100 200 / 200 100 ML @ 10 mls/hr IV.CONT Q10H CIRILO Rx#:[id number] Zosyn 2.25 GM Premix 50 ML @ 100 / 100 100 / 100 50 / 50 100 mls/hr IV.SIG Q6H CIRILO Rx#: [id number] KCl 10 mEq Premix Inj 10 meq In 100 / 100 100 ml @ 100 mls/hr IV.SIG NOW ONE Rx#:[id number] Oral 1200 / 1200 720 / 720 Anesthesia Amount 200 / 200 Output: Estimated Blood Loss Other: # Voids 4 # Incontinent Voids 2 Date of Last Bowel Movement 04/22/18 04/22/18 04/22/18 # Bowel Movements 4 Result Diagrams: 04/23/18 04:31 04/23/18 04:31 Other Results: Laboratory Results WBC 16.9 th/mm3 (4.0-11.0) H 04/23/18 04:31 RBC 2.65 mil/mm3 (4.00-5.30) L 04/23/18 04:31 Hgb 8.3 gm/dL (11.6-15.3) L 04/23/18 04:31 Hct 24.1 % (35.0-46.0) L 04/23/18 04:31 MCV 90.8 fL (80.0-100.0) 04/23/18 04:31 MCH 31.2 pg (27.0-34.0) 04/23/18 04:31 MCHC 34.3 % (32.0-36.0) 04/23/18 04:31 RDW 18.8 % (11.6-17.2) H 04/23/18 04:31 Plt Count 242 th/mm3 (150-450) D 04/23/18 04:31 MPV 9.9 fL (7.0-11.0) 04/23/18 04:31 Prelim Diff (Auto) Slide review pending 04/23/18 04:31 Neut % (Auto) 81.9 % (16.0-70.0) H 04/23/18 04:31 Lymph % (Auto) 11.4 % (9.0-44.0) 04/23/18 04:31 Bradford % (Auto) 4.5 % (0.0-8.0) 04/23/18 04:31 Eos % (Auto) 1.8 % (0.0-4.0) 04/23/18 04:31 Baso % (Auto) 0.4 % (0.0-2.0) 04/23/18 04:31 Neut # (Auto) 13.8 th/mm3 (1.8-7.7) H 04/23/18 04:31 Lymph # (Auto) 1.9 th/mm3 (1.0-4.8) 04/23/18 04:31 Bradford # (Auto) 0.8 th/mm3 (0.0-0.9) 04/23/18 04:31 Eos # (Auto) 0.3 th/mm3 (0.0-0.4) 04/23/18 04:31 Baso # (Auto) 0.1 th/mm3 (0.0-0.2) 04/23/18 04:31 WBC Differential Manual diff final 04/23/18 04:31 Diff Scan Auto diff confirmed 04/19/18 04:18 Seg Neuts % (Manual) 80 % (16-70) H 04/23/18 04:31 Band Neuts % (Manual) 6 % (0-6) 04/23/18 04:31 Lymphocytes % (Manual) 9 % (9-44) 04/23/18 04:31 Monocytes % (Manual) 2 % (0-8) 04/23/18 04:31 Eosinophils % (Manual) 2 % (0-4) 04/23/18 04:31 Basophils % (Manual) 1 % (0-2) 04/23/18 04:31 Metamyelocytes % (Man) 2 % (0-1) H 04/22/18 03:15 Myelocytes % (Man) 1 % (0-0) H 04/22/18 03:15 Promyelocytes % (Man) 1 % (0-0) H 04/22/18 03:15 Abs Neuts (Manual) 14.5 th/mm3 (1.8-7.7) H 04/23/18 04:31 Differential Comment . 04/23/18 04:31 Toxic Vacuolation Present (None) H 04/14/18 10:20 Dohle Bodies Present (None) H 04/18/18 03:25 Platelet Estimate Normal (Normal) 04/23/18 04:31 Platelet Morphology Normal (Normal) 04/23/18 04:31 Basophilic Stippling Faint (None) H 04/18/18 03:25 Ovalocytes 1+ (None) H 04/15/18 09:40 PT 11.2 sec (9.8-11.6) 04/23/18 04:31 INR 1.1 Ratio 04/23/18 04:31 APTT 26.5 sec (23.4-31.7) 04/23/18 04:31 Fibrinogen 697 mg/dL (227-377) H 04/20/18 07:11 Puncture Site Right brachial 04/14/18 10:32 Patient Temperature 98.6 04/14/18 10:32 O2 Saturation 93 % (90-100) 04/14/18 10:32 ABG pH 7.19 (7.380-7.420) L* 04/14/18 10:32 ABG pCO2 48 mmHg (38-42) H 04/14/18 10:32 ABG pO2 94 mmHg (61-120) 04/14/18 10:32 ABG HCO3 17 mmol/L (22-26) L 04/14/18 10:32 ABG O2 Content 16.7 Vol % (12.0-20.0) 04/14/18 10:32 ABG Base Excess -9.4 mmol/L (-2-2) L 04/14/18 10:32 ABG Methemoglobin 0.9 % (0-2) 04/14/18 10:32 Eric Test Present 04/14/18 10:32 Hemoglobin 12.7 G/DL (12.0-16.0) 04/14/18 10:32 Carboxyhemoglobin 1.2 % (0-4) 04/14/18 10:32 O2 Delivery Device Ventilator 04/14/18 10:32 Vent Setting Ac,14,450,peep5 04/14/18 10:32 Inspired O2 60 % 04/14/18 10:32 Critical Value Yes 04/14/18 10:32 Sodium 139 meq/L (136-145) 04/23/18 04:31 Potassium 3.1 meq/L (3.5-5.1) L 04/23/18 04:31 Chloride 98 meq/L (98-107) 04/23/18 04:31 Carbon Dioxide 22.6 meq/L (21.0-32.0) 04/23/18 04:31 Anion Gap 18 meq/L (5-15) H 04/23/18 04:31 BUN 87 mg/dL (7-18) H 04/23/18 04:31 Creatinine 7.00 mg/dL (0.50-1.00) H 04/23/18 04:31 Estimated GFR 6 mL/min (>89) L 04/23/18 04:31 POC Glucose 111 mg/dl (68-110) H 04/23/18 12:28 Random Glucose 93 mg/dL (74-106) 04/23/18 04:31 Lactic Acid 0.5 mmol/L (0.4-2.0) 04/20/18 07:28 Calcium 6.8 mg/dL (8.5-10.1) L* 04/23/18 04:31 Calcium Adj for Albumin 8.2 mg/dL (8.5-10.1) L 04/23/18 04:31 Phosphorus 7.4 mg/dL (2.5-4.9) H 04/23/18 04:31 Magnesium 1.8 mg/dL (1.5-2.5) 04/23/18 04:31 Total Bilirubin 0.8 mg/dL (0.2-1.0) 04/23/18 04:31 AST 68 U/L (15-37) H 04/23/18 04:31 ALT 82 U/L (10-53) H 04/23/18 04:31 Alkaline Phosphatase 75 U/L (45-117) 04/23/18 04:31 Ammonia 16 mcmol/L (11-32) 04/18/18 03:25 Total Creatine Kinase 566 U/L (26-192) H 04/18/18 03:25 CK-MB (CK-2) 10.6 ng/mL (0.5-3.6) H 04/18/18 03:25 CK-MB (CK-2) % 1.9 % (0.0-4.0) 04/18/18 03:25 Troponin I 1.30 ng/mL (0.02-0.05) H* D 04/16/18 13:48 Total Protein 6.1 g/dL (6.4-8.2) L 04/23/18 04:31 Albumin 2.3 g/dL (3.4-5.0) L 04/23/18 04:31 Lipase 217 U/L (73-393) 04/18/18 03:25 TSH 1.290 uIU/mL (0.358-3.740) 04/16/18 13:48 Urine Color Lynsey (Yellw/Straw) 04/14/18 10:35 Urine Clarity Cloudy (Clear) H 04/14/18 10:35 Urine pH 5.0 (5.0-8.5) 04/14/18 10:35 Ur Specific [place] 1.017 (1.002-1.035) 04/14/18 10:35 Urine Protein 500 or greater mg/dL (Neg-Trace) 04/14/18 10:35 Urine Glucose (UA) Negative mg/dL (Negative) 04/14/18 10:35 Urine Ketones Negative mg/dL (Negative) 04/14/18 10:35 Urine Occult Blood Small (Negative) H 04/14/18 10:35 Urine Nitrate Negative (Negative) 04/14/18 10:35 Urine Bilirubin Negative (Negative) 04/14/18 10:35 Urine Urobilinogen Less than 2 mg/dL (Less than 2) 04/14/18 10:35 Ur Leukocyte Esterase Negative (Negative) 04/14/18 10:35 Urine RBC 1 /hpf (0-3) 04/14/18 10:35 Urine WBC 10 /hpf (0-5) H 04/14/18 10:35 Ur Squamous Epith Cells 3 /hpf (0-5) 04/14/18 10:35 Amorphous Sediment Moderate /hpf (None) H 04/14/18 10:35 Urine Bacteria Few /hpf (None) H 04/14/18 10:35 Hyaline Casts 5 /lpf (0-3) 04/14/18 10:35 Urine Mucus Few /lpf (Occasional) H 04/14/18 10:35 Micro UA Comment Cath-culture ind 04/14/18 10:35 Ur Microscopic Review Not Reportable 04/14/18 10:35 Urine Culture Comments Cath-cult indicated 04/14/18 10:35 Nasal Screen MRSA (PCR) Mrsa detected (Negative) 04/14/18 14:00 Random Vancomycin 24.1 Comment 04/17/18 00:10 Digoxin 3.8 ng/mL (0.8-2.0) H* 04/17/18 04:00 Hepatitis A IgM Ab Nonreactive (Nonreactive) 04/14/18 20:15 Hep Bs Antigen Nonreactive (Nonreactive) 04/14/18 20:15 Hep B Core IgM Ab Nonreactive (Nonreactive) 04/14/18 20:15 Hep C IgG Ab Nonreactive (Nonreactive) 04/14/18 20:15 Blood Type O Negative 04/20/18 07:11 Blood Type Recheck Required 04/20/18 07:11 Antibody Screen Negative 04/20/18 07:11 MTS Gel Crossmatch See Detail 04/20/18 07:[address] 04/14/18 09:44 CONCLUSION: 1. 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 2. No evidence of acute infarct, hemorrhage, mass or edema. 3. No significant change compared to 04/12/2017. . Abdomen/Pelvis CT 04/14/18 10:59 CONCLUSION: 1. Distended gallbladder with cholelithiasis and minimal gas in the fundus. There is no significant pericholecystic fluid or inflammation. 2. Simple left renal cyst. 3. Bibasilar airspace disease. Liver Ultrasound 04/14/18 12:44 CONCLUSION: 1. Gallbladder contains sludge and stones. However, no additional findings are present to definitively indicate acute cholecystitis. 2. Common bile duct is enlarged but contains no visible stone. Given the pain one could consider MRCP for further evaluation of the common duct stone as a cause for the duct dilatation in right upper quadrant pain. 3. Atrophic right kidney with changes suggesting chronic medical renal disease. There is a complex cystic lesion in the mid kidney and renal sinus measuring up to 3.5 cm. At some point ideally be further characterized with renal protocol MRI with and without intravenous contrast. This should be performed on an elective basis when condition permits. Extremity Arterial Study 04/15/18 00:00 CONCLUSION: 1. Significantly limited examination due to unobtainable pressures in the forearms bilaterally. 2. Unobtainable pressures and absence of waveforms in the left hand. Cannot exclude steal from patient's left upper extremity brachiobasilic fistula. Upper Extremity Ultrasound 04/15/18 00:00 CONCLUSION: Patent left AV fistula. Venous Doppler Study 04/15/18 00:00 CONCLUSION: No evidence of DVT. Cholangiopancreatography MRI 04/16/18 07:10 CONCLUSION: 1. Cholelithiasis with multiple small gallstones layering dependently. There is no gallbladder wall thickening or inflammatory change. No gas is visualized on the MRI. 2. Common bile duct measuring up to 1 cm with no filling defects or mass. This could represent distal obstruction or prior passage of stones. 3. Multiple benign-appearing small cystic structures in the pancreas. 4. Bilateral simple renal cysts as well as a more complex right parapelvic cyst. GI Bleed Scan Nuclear Medicine 04/20/18 00:00 CONCLUSION: 1. Negative for gastrointestinal hemorrhage. Chest X-Ray 04/23/18 00:00 CONCLUSION: 1. Stable small area of opacity right infrahilar region, stable from prior. 2. Loss of delineation of the lateral left hemidiaphragm, a new finding, suggestive of either pleural effusion or a small infiltrate. Objective Remarks: GENERAL: Is a well-developed well-nourished 72-year-old female currently appears in no acute distress SKIN: Warm and dry with the exception of cool peripheral fingers left upper extremity dopplerable pulses. HEAD: Atraumatic. Normocephalic. EYES: Pupils equal and round about 2 mm bilaterally and reactive. No scleral icterus. No injection or drainage. ENT: No nasal bleeding or discharge. Mucous membranes pink and moist. NECK: Trachea midline. No JVD. CARDIOVASCULAR: Regular rate and rhythm. S1, S2. No S4. No appreciable murmur RESPIRATORY: Few fine crackles appreciated bilaterally anteriorly posteriorly. No wheezing GASTROINTESTINAL: Abdomen soft, slight right upper quadrant-tender, nondistended. Hepatic and splenic margins not palpable. Hypoactive bowel sounds appreciated. MUSCULOSKELETAL: Extremities without clubbing, cyanosis, or edema. Patient has a tunneled right IJ Hemovac catheter NEUROLOGICAL: Currently arousable and follows commands. Weak left upper extremity compared to the right. Assessment and Plan - Problem List (1) Acute metabolic encephalopathy Code(s): G93.41 - Metabolic encephalopathy Status: Acute (2) Acute hypoxemic respiratory failure Code(s): J96.01 - Acute respiratory failure with hypoxia Status: Acute (3) Septic shock Code(s): A41.9 - Sepsis, unspecified organism; R65.21 - Severe sepsis with septic shock Status: Resolved (4) Lactic acidosis Code(s): E87.2 - Acidosis Status: Acute (5) Non-ST elevated myocardial infarction (non-STEMI) Code(s): I21.4 - Non-ST elevation (NSTEMI) myocardial infarction Status: Acute (6) UTI (urinary tract infection) Code(s): N39.0 - Urinary tract infection, site not specified Status: Acute (7) Liver enzyme elevation Code(s): R74.8 - Abnormal levels of other serum enzymes Status: Acute (8) Emphysematous cholecystitis Code(s): K81.0 - Acute cholecystitis Status: Acute (9) Hyperkalemia Code(s): E87.5 - Hyperkalemia Status: Acute (10) ESRD (end stage renal disease) Code(s): N18.6 - End stage renal disease Status: Chronic (11) HTN (hypertension) Code(s): I10 - Essential (primary) hypertension Status: Chronic (12) Diabetes Code(s): E11.9 - Type 2 diabetes mellitus without complications Status: Chronic (13) GERD (gastroesophageal reflux disease) Code(s): K21.9 - Gastro-esophageal reflux disease without esophagitis Status: Chronic (14) Stroke Code(s): I63.9 - Cerebral infarction, unspecified Status: Chronic (15) TIA (transient ischemic attack) Code(s): G45.9 - Transient cerebral ischemic attack, unspecified Status: Chronic - Assessment and Plan Plan: NEURO/PSYCH: Acute metabolic encephalopathy-resolved Old small bilateral cerebellar infarcts. -Encephalopathy seems to be metabolic secondary to severe sepsis -CT of the head shows old bilateral cerebellar strokes, and nothing acute. -As needed fentanyl 25 mcg every 3 hours as needed pain RESP: Acute hypoxemic respiratory failure -Intubated in the emergency department for lack of airway protection and hypoxia -Extubated 04/17 -nasal cannula maintain saturations greater than equal to 90%. Wean as tolerated -albuterol/ipratropium aerosols every 4 hours with albuterol aerosols every 2 hours as needed -Incentive spirometry while -Head of bed at 30 degrees -Chest x-ray -small left infiltrate versus small left pleural effusion CV: NSTEMI likely type II Paroxysmal atrial fibrillation with 2 1 AV conduction Hypotension Lactic acidosis History of hypertension -GI bleeding currently holding aspirin 81 mg daily -Cardiology Dr. Fermin consulted NSTEMI most likely type II from sepsis -Hold all home antihypertensives (hold nifedipine, clonidine, hydralazine and Lasix) -Cardiology recommended diltiazem 30 mg 4 times daily and carvedilol 3.125 mg twice daily -2d echocardiogram revealed normal left ventricular size. EF 65-70%. Left lipomatous atrial septum,. Trace MR/TR GI: Improved only downtrending elevated liver enzymes Admitting diagnosis of emphysematous cholecystitis/likely passed stone History of GERD -Clear liquid diet Per GI. -Currently on pantoprazole drip at 8 mg an hour -Holding Nepro at 40 cc an hour goal. -Speech eval for swallow.-Failed 04/19 -CT abdomen pelvis shows small amount of air in the fundus of the gallbladder, this is concerning for emphysematous cholecystitis given clinical picture -Initially, stat consult to general surgery and discussed with Dr. Cortes. Recommended conservative therapy at the present time. -Dr. Cortes/general surgery and gastroenterology signed off MRCP -04/16 - cholelithiasis with multiple small gallstones layering dependently. There is no gallbladder wall thickening or inflammatory change. No gas is visualized on the MRI. Common bile duct measuring up to 1 cm with no filling defects or mass. This could represent distal obstruction or prior passage of stones. Multiple benign-appearing small cystic structures in the pancreas. Bilateral simple renal cysts as well as a more complex right parapelvic cyst. -Possible ERCP. LFTs very slowly trending downward -GI following still -With bright red blood per rectum we will nuclear medicine bleeding scan was negative-04/20. Repeat ordered by GI -GI for EGD with gastritis and colonoscopy -sigmoid/colonic diverticulosis. Bright red blood. Poor prep. Renal/: End-stage renal disease -Monitor renal function closely. -Dr. Gillette consulted for emergent hemodialysis on 04/14. Dialyzed 04/21 -Monitor urine output accurate I's and O's ID: Septic shock Admitting diagnosis of possible emphysematous cholecystitis/likely passed stone Possible UTI -Antibiotics with piperacillin/tazobactam. Discontinued vancomycin 04/16 -Infectious disease continues to follow and general surgery consulted. -Follow-up blood urine and sputum cultures no growth to date HEME: Normocytic anemia Leukocytosis -Monitor CBC, coags. Check coags now -Receiving 2 units PRBCs on 04/20. Recheck at 1500 and 2300 hrs. today ENDO/FEN: Hyperphosphatemia Hypokalemia Type 2 diabetes -Sliding scale insulin -We will start on calcium acetate at 1334 g 3 times daily MSK Cyanosis left upper extremity Followed by Dr. Wu. S/P AV fistula ligation by Dr. Stuart 04/23 PROPH: -Bilateral lower extremity SCDs. Heparin sq/omeprazole LINES: -Utilize peripheral IVs, left subclavian central line day #5 with left femoral arterial line day #3 both discontinued 04/18 Level 3 follow-up. Plan transfer to [facility] in a.m. Code Status: Full Discussed Condition With: JANITORIAL TECH at bedside and patient. 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
--- NOTE | 2018-04-23 15:11 | P.PNID ---
Subjective Remarks: is a 72 y/o WF with PMHx of CKD s/p attempt at PD catheter placement due to non compliance, also Left Brachiocephalic AV fistula on 2017 by . Patient was reportedly found with decreased level of consciousness. Room mates do not know much about her medical history and reportedly seen her normal the night prior. Per records EMS gave her Narcan and there was improvement noted. No family nos on chart and old records could not be assessed. Patients past medical records from prior visits could not be accessed by me but patient has CKD and prior Bradycardia on prior admit. Also patient has a history of stroke diabetes hypertension GERD. On admission she had leukocytosis of 12,000 with a left shift. Metabolic acidosis on ABG. Lactic acid 6.Troponins elevated. Cr at 9.6. Normal lipase, LFTs in thousands. CT with air concerning for emphysematous cholecystitis. At the time of my evaluation patient is in IMC, not on pressors, has received fluid bolus amount not documented per RN. She is currently intubated, not sedated, opens eyes, does not follow commands for me. No obvious focal deficit. ID consulted for evaluation and Mment of Severe Sepsis, possible acute cholecystitis. Notes reviewed awake, alert, sitting in bed, talking to friend. s/p Vascular procedure and hand now pink with good circulation. Denies abdominal pain No N/V No other symptoms. Antibiotics: zosyn IV Lines: Line sites ok Past Medical History: reviewed Allergies/Adverse Reactions: Allergies No Known Allergies Allergy (Verified 01/22/18 10:23) Objective Vital Signs 04/22/18 16:00 04/22/18 17:00 04/22/18 17:01 Temperature 98.3 F Pulse Rate 65 61 63 Respiratory Rate 11 L 14 22 Blood Pressure 124/51 L 131/49 L Pulse Oximetry 95 96 97 04/22/18 18:00 04/22/18 18:01 04/22/18 19:00 Temperature Pulse Rate 68 66 64 Respiratory Rate 26 H 22 19 Blood Pressure 129/49 L Pulse Oximetry 96 98 98 04/22/18 19:01 04/22/18 20:00 04/22/18 20:15 Temperature 98.7 F Pulse Rate 66 64 Respiratory Rate 14 13 Blood Pressure 113/45 L 109/46 L Pulse Oximetry 97 96 97 04/22/18 21:00 04/22/18 21:01 04/22/18 21:26 Temperature Pulse Rate 61 61 Respiratory Rate 14 16 18 Blood Pressure 104/39 L Pulse Oximetry 100 100 04/22/18 22:00 04/22/18 22:01 04/22/18 22:03 Temperature Pulse Rate 56 L 59 L 57 L Respiratory Rate 15 15 15 Blood Pressure 104/39 L 90/39 L Pulse Oximetry 100 100 98 04/22/18 22:31 04/22/18 23:00 04/22/18 23:01 Temperature Pulse Rate 54 L 58 L 58 L Respiratory Rate 13 14 13 Blood Pressure 95/45 L 100/50 L Pulse Oximetry 92 L 96 96 04/22/18 23:31 04/23/18 00:00 04/23/18 00:01 Temperature Pulse Rate 57 L 61 64 Respiratory Rate 15 19 31 H Blood Pressure 103/46 L 117/49 L Pulse Oximetry 97 96 97 04/23/18 00:31 04/23/18 01:00 04/23/18 01:01 Temperature 97.4 F L Pulse Rate 58 L 70 60 Respiratory Rate 17 10 L Blood Pressure 113/44 L 107/62 Pulse Oximetry 97 96 04/23/18 01:14 04/23/18 01:31 04/23/18 02:00 Temperature Pulse Rate 61 65 Respiratory Rate 19 16 17 Blood Pressure 150/66 H 145/58 H Pulse Oximetry 90 L 97 04/23/18 02:30 04/23/18 02:46 04/23/18 03:00 Temperature Pulse Rate 66 64 Respiratory Rate 16 9 L 14 Blood Pressure 142/95 H Pulse Oximetry 97 97 04/23/18 03:01 04/23/18 04:00 04/23/18 07:00 Temperature 97.1 F L Pulse Rate 61 62 Respiratory Rate 12 19 Blood Pressure 130/53 L 120/53 L Pulse Oximetry 98 97 98 04/23/18 08:00 04/23/18 09:45 04/23/18 12:15 Temperature 98.0 F 97.5 F L 97.8 F Pulse Rate 67 69 63 Respiratory Rate 18 16 17 Blood Pressure 123/58 L 166/72 H 128/56 L Pulse Oximetry 100 95 98 04/23/18 12:40 04/23/18 14:00 Temperature 97.8 F Pulse Rate 64 68 Respiratory Rate 17 Blood Pressure 133/74 Pulse Oximetry 98 Intake & Output 04/22/18 04/23/18 04/23/18 18:59 06:59 18:59 Intake Total 1400 / 1400 1020 / 1020 350 / 350 Output Total 10 / 10 Balance 1400 / 1400 1020 / 1020 340 / 340 Weight 68.9 kg Intake: IV 200 / 200 300 / 300 150 / 150 Protonix Inj 80 MG In NS Inj 100 / 100 200 / 200 100 ML @ 10 mls/hr IV.CONT Q10H [facility] Rx#:[id number] Zosyn 2.25 GM Premix 50 ML @ 100 / 100 100 / 100 50 / 50 100 mls/hr IV.SIG Q6H [facility] Rx#: [id number] KCl 10 mEq Premix Inj 10 meq In 100 / 100 100 ml @ 100 mls/hr IV.SIG NOW ONE Rx#:[id number] Oral 1200 / 1200 720 / 720 Anesthesia Amount 200 / 200 Output: Estimated Blood Loss Other: # Voids 4 # Incontinent Voids 2 Date of Last Bowel Movement 04/22/18 04/22/18 04/22/18 # Bowel Movements 4 04/15/18 13:55 Blood - Peripheral Aerobic Blood Culture - Final No growth in 5 days 04/15/18 13:55 Blood - Peripheral Anaerobic Blood Culture - Final No growth in 5 days 04/15/18 11:30 Blood - Line Aerobic Blood Culture - Final No growth in 5 days 04/15/18 11:30 Blood - Line Anaerobic Blood Culture - Final No growth in 5 days Lab - Hematology Results 04/21/18 04/22/18 04/22/18 18:10 03:15 15:20 WBC 11.1 H 11.9 H RBC 2.55 L 2.54 L Hgb 7.8 L 7.8 L 8.3 L Hct 23.1 L 23.3 L 24.7 L MCV 90.4 91.8 MCH 30.7 30.6 MCHC 33.9 33.4 RDW 19.3 H 19.8 H Plt Count 185 182 MPV 9.4 9.7 Prelim Diff (Auto) Slide review pending Neut % (Auto) 76.6 H Lymph % (Auto) 15.9 Powell % (Auto) 5.6 Eos % (Auto) 1.4 Baso % (Auto) 0.5 Neut # (Auto) 9.1 H Lymph # (Auto) 1.9 Powell # (Auto) 0.7 Eos # (Auto) 0.2 Baso # (Auto) 0.1 WBC Differential Manual diff final Seg Neuts % (Manual) 71 H Band Neuts % (Manual) 6 Lymphocytes % (Manual) 16 Monocytes % (Manual) 3 Eosinophils % (Manual) Basophils % (Manual) Metamyelocytes % (Man) 2 H Myelocytes % (Man) 1 H Promyelocytes % (Man) 1 H Abs Neuts (Manual) 9.6 H Differential Comment . Platelet Estimate Normal Platelet Morphology Normal 04/22/18 04/23/18 23:27 04:31 WBC 16.9 H RBC 2.65 L Hgb 8.0 L 8.3 L Hct 23.3 L 24.1 L MCV 90.8 MCH 31.2 MCHC 34.3 RDW 18.8 H Plt Count 242 D MPV 9.9 Prelim Diff (Auto) Slide review pending Neut % (Auto) 81.9 H Lymph % (Auto) 11.4 Powell % (Auto) 4.5 Eos % (Auto) 1.8 Baso % (Auto) 0.4 Neut # (Auto) 13.8 H Lymph # (Auto) 1.9 Powell # (Auto) 0.8 Eos # (Auto) 0.3 Baso # (Auto) 0.1 WBC Differential Manual diff final Seg Neuts % (Manual) 80 H Band Neuts % (Manual) 6 Lymphocytes % (Manual) 9 Monocytes % (Manual) 2 Eosinophils % (Manual) 2 Basophils % (Manual) 1 Metamyelocytes % (Man) Myelocytes % (Man) Promyelocytes % (Man) Abs Neuts (Manual) 14.5 H Differential Comment . Platelet Estimate Normal Platelet Morphology Normal Lab - Chemistry Results 04/21/18 04/22/18 04/22/18 17:09 03:15 11:50 Sodium 141 Potassium 3.3 L Chloride 101 Carbon Dioxide 23.7 Anion Gap 16 H BUN 72 H Creatinine 5.91 H Estimated GFR 7 L POC Glucose 119 H 165 H Random Glucose 88 Calcium 7.0 L* Calcium Adj for Albumin 8.4 L Phosphorus 8.0 H Magnesium 1.8 Total Bilirubin 0.8 AST 68 H ALT 93 H Alkaline Phosphatase 77 Total Protein 6.0 L Albumin 2.3 L 12/16/18 12/16/18 12/17/18 16:37 23:13 04:31 Sodium 139 Potassium 3.1 L Chloride 98 Carbon Dioxide 22.6 Anion Gap 18 H BUN 87 H Creatinine 7.00 H Estimated GFR 6 L POC Glucose 215 H 108 Random Glucose 93 Calcium 6.8 L* Calcium Adj for Albumin 8.2 L Phosphorus 7.4 H Magnesium 1.8 Total Bilirubin 0.8 AST 68 H ALT 82 H Alkaline Phosphatase 75 Total Protein 6.1 L Albumin 2.3 L 04/23/18 04/23/18 09:52 12:28 Sodium Potassium Chloride Carbon Dioxide Anion Gap BUN Creatinine Estimated GFR POC Glucose 122 H 111 H Random Glucose Calcium Calcium Adj for Albumin Phosphorus Magnesium Total Bilirubin AST ALT Alkaline Phosphatase Total Protein Albumin Imaging: ITS Impressions Head CT 04/14/18 09:44 CONCLUSION: 1. 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 2. No evidence of acute infarct, hemorrhage, mass or edema. 3. No significant change compared to 04/12/2017. . Abdomen/Pelvis CT 04/14/18 10:59 CONCLUSION: 1. Distended gallbladder with cholelithiasis and minimal gas in the fundus. There is no significant pericholecystic fluid or inflammation. 2. Simple left renal cyst. 3. Bibasilar airspace disease. Liver Ultrasound 04/14/18 12:44 CONCLUSION: 1. Gallbladder contains sludge and stones. However, no additional findings are present to definitively indicate acute cholecystitis. 2. Common bile duct is enlarged but contains no visible stone. Given the pain one could consider MRCP for further evaluation of the common duct stone as a cause for the duct dilatation in right upper quadrant pain. 3. Atrophic right kidney with changes suggesting chronic medical renal disease. There is a complex cystic lesion in the mid kidney and renal sinus measuring up to 3.5 cm. At some point ideally be further characterized with renal protocol MRI with and without intravenous contrast. This should be performed on an elective basis when condition permits. Extremity Arterial Study 04/15/18 00:00 CONCLUSION: 1. Significantly limited examination due to unobtainable pressures in the forearms bilaterally. 2. Unobtainable pressures and absence of waveforms in the left hand. Cannot exclude steal from patient's left upper extremity brachiobasilic fistula. Upper Extremity Ultrasound 04/15/18 00:00 CONCLUSION: Patent left AV fistula. Venous Doppler Study 04/15/18 00:00 CONCLUSION: No evidence of DVT. Cholangiopancreatography MRI 04/16/18 07:10 CONCLUSION: 1. Cholelithiasis with multiple small gallstones layering dependently. There is no gallbladder wall thickening or inflammatory change. No gas is visualized on the MRI. 2. Common bile duct measuring up to 1 cm with no filling defects or mass. This could represent distal obstruction or prior passage of stones. 3. Multiple benign-appearing small cystic structures in the pancreas. 4. Bilateral simple renal cysts as well as a more complex right parapelvic cyst. GI Bleed Scan Nuclear Medicine 04/20/18 00:00 CONCLUSION: 1. Negative for gastrointestinal hemorrhage. Chest X-Ray 04/23/18 00:00 CONCLUSION: 1. Stable small area of opacity right infrahilar region, stable from prior. 2. Loss of delineation of the lateral left hemidiaphragm, a new finding, suggestive of either pleural effusion or a small infiltrate. Physical Exam: GENERAL: Awake, responding, NAD SKIN: Cool and dry, no generalized rash HEAD: Atraumatic. Normocephalic. No temporal or scalp tenderness. EYES: Pupils equal round and reactive. Scleral icterus. No injection or drainage. No petechia ENT: Dry oral mucosa NECK: Trachea midline. Supple, nontender, no meningeal signs. CARDIOVASCULAR: HS audible. RESPIRATORY: Air entry equal bilaterally. Decreased BS at bases GASTROINTESTINAL: Abdomen soft, not distended, tender in RUQ, no guarding, no rebound MUSCULOSKELETAL: Lower Extremities with no evidence of infection. Left AV fistula site ok. Left fingers bluish hue, cold clammy, looks slightly less blue NEUROLOGICAL: Awake, following commands Psych: cooperative IV line sites ok. HD cath Assessment and Plan - Plan Severe Sepsis Probable acute emphysematous cholecystitis (CT findings and RUQ tenderness) CKD Attempted PD catheter placement in 01/2018. AV fistula LUE placed on 01/22/2018. Cyanosis L hand, ?steal syndrome - being evaluated GIB Acute metabolic encephalopathy: sepsis, metabolic. Recs: Continue Zosyn IV Will switch to oral augmentin in am if clinically stable. Follow temps Monitor progress.
--- NOTE | 2018-04-23 18:03 | P.PNGI ---
Subjective Interval history: Patient resting in bed Visitor at bedside No reported bleeding Hemoglobin stable Patient states she is hungry <Kim Hannah - Last Filed: 04/23/18 18:01> Interval history: The patient has been seen and examined. I agree with above. <Matti Wharton - Last Filed: 04/24/18 11:21> Physical Exam Vital signs: Vital Signs 04/22/18 19:00 04/22/18 19:01 04/22/18 20:00 Temperature 98.7 F Pulse Rate 64 66 64 Respiratory Rate 19 14 13 Blood Pressure 113/45 L 109/46 L Pulse Oximetry 98 97 96 04/22/18 20:15 04/22/18 21:00 04/22/18 21:01 Temperature Pulse Rate 61 61 Respiratory Rate 14 16 Blood Pressure 104/39 L Pulse Oximetry 97 100 100 04/22/18 21:26 04/22/18 22:00 04/22/18 22:01 Temperature Pulse Rate 56 L 59 L Respiratory Rate 18 15 15 Blood Pressure 104/39 L Pulse Oximetry 100 100 04/22/18 22:03 04/22/18 22:31 04/22/18 23:00 Temperature Pulse Rate 57 L 54 L 58 L Respiratory Rate 15 13 14 Blood Pressure 90/39 L 95/45 L Pulse Oximetry 98 92 L 96 04/22/18 23:01 04/22/18 23:31 04/23/18 00:00 Temperature Pulse Rate 58 L 57 L 61 Respiratory Rate 13 15 19 Blood Pressure 100/50 L 103/46 L Pulse Oximetry 96 97 96 04/23/18 00:01 04/23/18 00:31 04/23/18 01:00 Temperature Pulse Rate 64 58 L 70 Respiratory Rate 31 H 17 Blood Pressure 117/49 L 113/44 L Pulse Oximetry 97 97 04/23/18 01:01 04/23/18 01:14 04/23/18 01:31 Temperature 97.4 F L Pulse Rate 60 61 Respiratory Rate 10 L 19 16 Blood Pressure 107/62 150/66 H Pulse Oximetry 96 90 L 04/23/18 02:00 04/23/18 02:30 04/23/18 02:46 Temperature Pulse Rate 65 66 Respiratory Rate 17 16 9 L Blood Pressure 145/58 H 142/95 H Pulse Oximetry 97 97 04/23/18 03:00 04/23/18 03:01 04/23/18 04:00 Temperature 97.1 F L Pulse Rate 64 61 62 Respiratory Rate 14 12 19 Blood Pressure 130/53 L 120/53 L Pulse Oximetry 97 98 97 04/23/18 07:00 04/23/18 08:00 04/23/18 09:45 Temperature 98.0 F 97.5 F L Pulse Rate 67 69 Respiratory Rate 18 16 Blood Pressure 123/58 L 166/72 H Pulse Oximetry 98 100 95 04/23/18 12:15 04/23/18 12:40 04/23/18 14:00 Temperature 97.8 F 97.8 F Pulse Rate 63 64 68 Respiratory Rate 17 17 Blood Pressure 128/56 L 133/74 Pulse Oximetry 98 98 04/23/18 16:00 Temperature 98.5 F Pulse Rate 71 Respiratory Rate 14 Blood Pressure 100/39 L Pulse Oximetry 100 Intake & Output 04/22/18 04/23/18 04/23/18 18:59 06:59 18:59 Intake Total 1400 / 1400 1020 / 1020 1410 / 1410 Output Total 10 / 10 Balance 1400 / 1400 1020 / 1020 1400 / 1400 Weight 68.9 kg Intake: IV 200 / 200 300 / 300 790 / 790 D5W/1/2 NS Inj 1,000 ML @ 42 500 / 500 mls/hr IV.CONT .[id number] [facility] Rx# :[id number] Protonix Inj 80 MG In NS Inj 100 / 100 200 / 200 90 / 90 100 ML @ 10 mls/hr IV.CONT Q10H [facility] Rx#:[id number] Zosyn 2.25 GM Premix 50 ML @ 100 / 100 100 / 100 100 / 100 100 mls/hr IV.SIG Q6H [facility] Rx#: [id number] KCl 10 mEq Premix Inj 10 meq In 100 / 100 100 ml @ 100 mls/hr IV.SIG NOW ONE Rx#:[id number] Oral 1200 / 1200 720 / 720 420 / 420 Anesthesia Amount 200 / 200 Output: Estimated Blood Loss 10 / 10 Other: # Voids 4 1 # Incontinent Voids 2 Date of Last Bowel Movement 04/22/18 04/22/18 04/23/18 # Bowel Movements 4 1 - Constitutional no acute distress, chronically ill appearing - Routine HEENT Exam Head: Present: normocephalic - Routine Respiratory Exam Present: CTA bilaterally - Routine Abdominal Exam Present: soft, normoactive bowel sounds. Absent: tenderness, distended - Routine Skin Exam Present: dry, warm - Routine Neurological Exam Present: alert - Urinary Catheter Management Indwelling Urethral Catheter Cath placed during this visit: yes, but has since been removed by the nurse Reason for continuing: Hourly intake/output Insertion date: 04/14/18 Insertion time: 10:35 Removal date: 04/14/18 Removal time: 17:30 <Kim Hannah - Last Filed: 04/23/18 18:01> Vital signs: Vital Signs 04/23/18 12:15 04/23/18 12:40 04/23/18 14:00 Temperature 97.8 F 97.8 F Pulse Rate 63 64 68 Respiratory Rate 17 17 Blood Pressure 128/56 L 133/74 Pulse Oximetry 98 98 04/23/18 16:00 04/23/18 18:00 04/23/18 20:00 Temperature 98.5 F 97.9 F Pulse Rate 71 60 67 Respiratory Rate 14 18 Blood Pressure 100/39 L 94/48 L Pulse Oximetry 100 100 04/23/18 21:29 04/23/18 22:00 04/23/18 23:43 Temperature Pulse Rate 67 Respiratory Rate 20 Blood Pressure Pulse Oximetry 100 04/24/18 00:00 04/24/18 02:00 04/24/18 04:00 Temperature 98 F 98.2 F Pulse Rate 65 64 66 Respiratory Rate 14 14 Blood Pressure 97/43 L 87/44 L Pulse Oximetry 98 100 04/24/18 06:00 04/24/18 08:00 Temperature Pulse Rate 63 Respiratory Rate Blood Pressure Pulse Oximetry 97 Intake & Output 04/23/18 04/24/18 04/24/18 18:59 06:59 18:59 Intake Total 1410 / 1410 280 / 280 Output Total 10 / 10 Balance 1400 / 1400 280 / 280 Weight 70.6 kg Intake: IV 790 / 790 100 / 100 D5W/1/2 NS Inj 1,000 ML @ 42 500 / 500 mls/hr IV.CONT .[id number] [facility] Rx# :[id number] Protonix Inj 80 MG In NS Inj 90 / 90 100 ML @ 10 mls/hr IV.CONT Q10H [facility] Rx#:[id number] Zosyn 2.25 GM Premix 50 ML @ 100 / 100 100 / 100 100 mls/hr IV.SIG Q6H [facility] Rx#: [id number] KCl 10 mEq Premix Inj 10 meq In 100 / 100 100 ml @ 100 mls/hr IV.SIG NOW ONE Rx#:[id number] Oral 420 / 420 180 / 180 Anesthesia Amount 200 / 200 Output: Estimated Blood Loss Other: # Voids 1 0 Date of Last Bowel Movement 04/22/18 04/23/18 # Bowel Movements 1 0 - Urinary Catheter Management Indwelling Urethral Catheter Cath placed during this visit: no <Matti Wharton - Last Filed: 04/24/18 11:21> Results - Labs CBC & Chem 7: 04/23/18 04:31 04/23/18 04:31 Laboratory Results - last 24 hr 04/20/18 04/22/18 04/22/18 07:55 23:13 23:27 WBC RBC Hgb 8.0 L Hct 23.3 L MCV MCH MCHC RDW Plt Count MPV Prelim Diff (Auto) Neut % (Auto) Lymph % (Auto) Roosevelt % (Auto) Eos % (Auto) Baso % (Auto) Neut # (Auto) Lymph # (Auto) Roosevelt # (Auto) Eos # (Auto) Baso # (Auto) WBC Differential Seg Neuts % (Manual) Band Neuts % (Manual) Lymphocytes % (Manual) Monocytes % (Manual) Eosinophils % (Manual) Basophils % (Manual) Abs Neuts (Manual) Differential Comment Platelet Estimate Platelet Morphology PT INR APTT Sodium Potassium Chloride Carbon Dioxide Anion Gap BUN Creatinine Estimated GFR POC Glucose 108 Random Glucose Calcium Calcium Adj for Albumin Phosphorus Magnesium Total Bilirubin AST ALT Alkaline Phosphatase Total Protein Albumin MTS Gel Crossmatch See Detail 04/23/18 04/23/18 04/23/18 04:31 04:31 04:31 WBC 16.9 H RBC 2.65 L Hgb 8.3 L Hct 24.1 L MCV 90.8 MCH 31.2 MCHC 34.3 RDW 18.8 H Plt Count 242 D MPV 9.9 Prelim Diff (Auto) Slide review pending Neut % (Auto) 81.9 H Lymph % (Auto) 11.4 Roosevelt % (Auto) 4.5 Eos % (Auto) 1.8 Baso % (Auto) 0.4 Neut # (Auto) 13.8 H Lymph # (Auto) 1.9 Roosevelt # (Auto) 0.8 Eos # (Auto) 0.3 Baso # (Auto) 0.1 WBC Differential Manual diff final Seg Neuts % (Manual) 80 H Band Neuts % (Manual) 6 Lymphocytes % (Manual) 9 Monocytes % (Manual) 2 Eosinophils % (Manual) 2 Basophils % (Manual) 1 Abs Neuts (Manual) 14.5 H Differential Comment . Platelet Estimate Normal Platelet Morphology Normal PT 11.2 INR 1.1 APTT 26.5 Sodium 139 Potassium 3.1 L Chloride 98 Carbon Dioxide 22.6 Anion Gap 18 H BUN 87 H Creatinine 7.00 H Estimated GFR 6 L POC Glucose Random Glucose 93 Calcium 6.8 L* Calcium Adj for Albumin 8.2 L Phosphorus 7.4 H Magnesium 1.8 Total Bilirubin 0.8 AST 68 H ALT 82 H Alkaline Phosphatase 75 Total Protein 6.1 L Albumin 2.3 L MTS Gel Crossmatch 04/23/18 04/23/18 04/23/18 09:52 12:28 17:19 WBC RBC Hgb Hct MCV MCH MCHC RDW Plt Count MPV Prelim Diff (Auto) Neut % (Auto) Lymph % (Auto) Roosevelt % (Auto) Eos % (Auto) Baso % (Auto) Neut # (Auto) Lymph # (Auto) Roosevelt # (Auto) Eos # (Auto) Baso # (Auto) WBC Differential Seg Neuts % (Manual) Band Neuts % (Manual) Lymphocytes % (Manual) Monocytes % (Manual) Eosinophils % (Manual) Basophils % (Manual) Abs Neuts (Manual) Differential Comment Platelet Estimate Platelet Morphology PT INR APTT Sodium Potassium Chloride Carbon Dioxide Anion Gap BUN Creatinine Estimated GFR POC Glucose 122 H 111 H 177 H Random Glucose Calcium Calcium Adj for Albumin Phosphorus Magnesium Total Bilirubin AST ALT Alkaline Phosphatase Total Protein Albumin MTS Gel Crossmatch - Imaging Impressions Chest X-Ray 04/23/18 00:00 CONCLUSION: 1. Stable small area of opacity right infrahilar region, stable from prior. 2. Loss of delineation of the lateral left hemidiaphragm, a new finding, suggestive of either pleural effusion or a small infiltrate. <Kim Hannah - Last Filed: 04/23/18 18:01> - Labs CBC & Chem 7: 04/24/18 09:11 12/18/18 09:11 Laboratory Results - last 24 hr 04/23/18 04/23/18 04/23/18 12:28 16:50 17:19 WBC RBC Hgb 8.5 L Hct 25.3 L MCV MCH MCHC RDW Plt Count MPV Neut % (Auto) Lymph % (Auto) Roosevelt % (Auto) Eos % (Auto) Baso % (Auto) Neut # (Auto) Lymph # (Auto) Roosevelt # (Auto) Eos # (Auto) Baso # (Auto) WBC Differential Differential Comment Sodium Potassium Chloride Carbon Dioxide Anion Gap BUN Creatinine Estimated GFR POC Glucose 111 H 177 H Random Glucose Calcium Calcium Adj for Albumin Albumin 04/23/18 04/24/18 04/24/18 23:16 00:15 05:27 WBC RBC Hgb 7.4 L Hct 22.6 L MCV MCH MCHC RDW Plt Count MPV Neut % (Auto) Lymph % (Auto) Roosevelt % (Auto) Eos % (Auto) Baso % (Auto) Neut # (Auto) Lymph # (Auto) Roosevelt # (Auto) Eos # (Auto) Baso # (Auto) WBC Differential Differential Comment Sodium Potassium Chloride Carbon Dioxide Anion Gap BUN Creatinine Estimated GFR POC Glucose 168 H 122 H Random Glucose Calcium Calcium Adj for Albumin Albumin 04/24/18 04/24/18 09:11 09:11 WBC 13.7 H RBC 2.40 L Hgb 7.6 L Hct 22.1 L MCV 92.0 MCH 31.7 MCHC 34.4 RDW 19.3 H Plt Count 224 MPV 9.8 Neut % (Auto) 78.9 H Lymph % (Auto) 14.3 Roosevelt % (Auto) 5.0 Eos % (Auto) 1.6 Baso % (Auto) 0.2 Neut # (Auto) 10.8 H Lymph # (Auto) 2.0 Roosevelt # (Auto) 0.7 Eos # (Auto) 0.2 Baso # (Auto) 0.0 WBC Differential . Differential Comment Auto diff final Sodium 138 Potassium 3.3 L Chloride 98 Carbon Dioxide 21.4 Anion Gap 19 H BUN 95 H Creatinine 8.86 H Estimated GFR 4 L POC Glucose Random Glucose 107 H Calcium 6.5 L* Calcium Adj for Albumin 8.1 L Albumin 2.0 L <Matti Wharton - Last Filed: 04/24/18 11:21> Assessment and Plan - Plan This is a 72-year-old female who entered the hospital on 04/14/2018 after being found unresponsive per her roommate. According to the record and staff patient was intubated in the emergency room setting and received multiple lab work and aggressive therapy there was a CAT scan that showed distended gallbladder with cholelithiasis and liver ultrasound that showed positive cholelithiasis and gallbladder sludge and a small amount of air in the fundus of the gallbladder. Lab work was reviewed which showed initial hemoglobin 12.6 now decreased to 10.6 , initial WBC count 12.5 now normalized to 8.4, PT/INR 1.3, lipase 47, bilirubin 0.7, AST 1050, ALT 8:06 AM positive troponin IV 0.35. Gastroenterology was consulted to assist in her plan of care but it is noted after examination of the patient and per the record patient is acutely critically ill in the intensive care setting. There is currently no family present but according to staff patient has a daughter and a son. Transaminitis, these elevated liver enzymes could be related to shock liver since patient was found unresponsive. She will need continuing monitoring of these labs for any acute changes Anemia current hemoglobin 10.6 which is a mild decrease from admission. Patient has NG tube which shows dark bilious fluid return but also some possible coffee-ground debris noted initially in the NG tube. We will need to rule out any GI bleeding Ultrasound of the liver did show positive gallstones and sludge and recommendation was for MRCP but this will need to be done when patient is stable. MRCP has been ordered but probably on hold for this p.m. History of end-stage renal disease on hemodialysis Monday and Monday schedule. Patient has had cultures done for possible sepsis Left upper extremity is cool to the touch right upper extremity is warm, both lower extremities are cool. Possible non-STEMI cardiology involved Possible gallbladder disease rule out Ultrasound gallbladder contains sludge and stones. However, no additional findings are present to definitively indicate acute cholecystitis. Common bile duct is enlarged but contains no visible stone. Given the pain one could consider MRCP for further evaluation of the common duct stone as a cause for the duct dilatation in right upper quadrant pain. Atrophic right kidney with changes suggesting chronic medical renal disease. There is a complex cystic lesion in the mid kidney and renal sinus measuring up to 3.5 cm. At some point ideally be further characterized with renal protocol MRI with and without intravenous contrast. This should be performed on an elective basis when condition permits. 04/16/2018 -Patient intubated and mechanically ventilated. Plan for MRCP today. Orogastric tube to low intermittent suction 100 mL's of dark green bilious fluid noted. No obvious bleeding noted. -Transaminitis-likely due to shock liver as patient was found unresponsive, will continue to monitor LFTs -WBC 12.4 hemoglobin 10.3 hematocrit 31.6 INR 1.3 total bilirubin 0.9 AST 475 ALT 632 alk phos 58 ammonia less than 10 -04/16/2018 MRCP revealed the following findings: 1. Cholelithiasis with multiple small gallstones layering dependently. There is no gallbladder wall thickening or inflammatory change. No gas is visualized on the MRI. 2. Common bile duct measuring up to 1 cm with no filling defects or mass. This could represent distal obstruction or prior passage of stones. 3. Multiple benign-appearing small cystic structures in the pancreas. 4. Bilateral simple renal cysts as well as a more complex right parapelvic cyst. 04/17/2018 Intubated and mechanically ventilated. Orogastric tube to low intermittent wall suction, minimal scant drainage dark green bilious fluid. No obvious bleeding noted. Transaminitis--trending down, total bilirubin 1.0 AST 423 ALT 560 alk phos 74 WBC 10.6 hemoglobin 9.2 hematocrit 27.1 Decrease probability of choledocholithiasis, likely shock liver in view of liver panel Continue present conservative treatment 04/18/2018 Extubated on oxygen simple mask. No bleeding noted WBC 8.8 hemoglobin 9.7 hematocrit 29.3 platelet count 206 Total bilirubin 1.3 AST 217 alk phos 95 ALT 460 ammonia 16 lipase 217 04/20/2018 Patient resting soundly with eyes closed, awakens easily Denies abdominal pain. GI notified due to patient passing large amounts of maroon colored stool with clots overnight. WBC 10.2 hemoglobin 6.8 hematocrit 21.1 platelet count 225 INR 1.3 Total bilirubin 1.0 AST 66 ALT 168 alk phos 155 improving. 04/22/2018 Patient awake and alert Denies abdominal pain nausea or vomiting No reported bleeding WBC 11.9 hemoglobin 7.8 hematocrit 23.3 stable platelet count 182 04/21/2018 EGD findings-Esophagus: Normal mucosa, Z line at 35 cm Stomach: mild gastritis seen in the antrum. Biopsies taken from the antrum and body. No ulcers or erosions. No evidence of bleeding. Duodenum: normal bulb through second portion. 04/21/2018 colonoscopy findings-colonoscopy, prep was not adequate due to red blood and maroon blood throughout colon. Terminal ileum : red blood was seen in the terminal ileum for 10 cm. Colon: Moderate diverticulosis seen throughout the colon. Red and maroon stool seen throughout the colon Rectum: Maroon and black blood seen. 04/23/2018 Patient awake and alert No reported bleeding Denies abdominal pain nausea or vomiting, states she is hungry WBC 16.9 hemoglobin 8.3 hematocrit 24.1 platelet count 242 Plan -Regular soft diet -Monitor for bleeding -Monitor labs hemoglobin and hematocrit -Transfuse as needed -PPI -Stat bleeding scan for any active bleeding -Video capsule endoscopy as outpatient -Supportive care -GI will sign off at this time please notify for any further assistance This patient has been seen by myself and Dr. Wharton and this note is written on his behalf - Attending Attestation Dr. Wharton <Kim Hannah - Last Filed: 04/23/18 18:01>
[2018-04-23 18:59] LABS: Hematocrit 25.3 % (35.0-46.0); Hemoglobin 8.5 gm/dL (11.6-15.3)
[2018-04-23] MEDS: Gabapentin 100 MG Capsule PO SCH (21:28)
[2018-04-23 23:52] LABS: Hematocrit 22.6 % (35.0-46.0); Hemoglobin 7.4 gm/dL (11.6-15.3)
[2018-04-24] MEDS: Insulin NovoLOG Aspart Correctional Sugar Inj SQ SCH ×5 (00:17→23:36)
[2018-04-24] MEDS: Oral Hygiene Kit OROPHARYNG SCH ×5 (00:17→23:36)
[2018-04-24] MEDS: Piperacil/Tazo 2.25 GM Premix 50 ML IV.SIG SCH ×4 (01:54→20:22)
[2018-04-24] MEDS: Chlorhexidine 0.12% Oral Kit 15 ML UDC OROPHARYNG SCH ×2 (08:29→20:07)
[2018-04-24] MEDS: Vitamin B Complex/Vit C/Folic Tablet PO SCH (09:22)
[2018-04-24] MEDS: Calcium Acetate 667 MG Capsule NG/OG SCH ×3 (09:22→18:34)
[2018-04-24] MEDS: Mupirocin 2% Nasal Oint Topical Syringe EACH NARE SCH ×2 (09:23→20:22)
[2018-04-24] MEDS: dilTIAZem 30 MG Tablet PO SCH ×4 (09:23→20:22)
[2018-04-24 09:39] LABS: Baso % (Auto) 0.2 % (0.0-2.0); Eos # (Auto) 0.2 th/mm3 (0.0-0.4); Eos % (Auto) 1.6 % (0.0-4.0); Hematocrit 22.1 % (35.0-46.0); Hemoglobin 7.6 gm/dL (11.6-15.3); Lymph % (Auto) 14.3 % (9.0-44.0); Mean Corpuscular HGB Conc 34.4 % (32.0-36.0); Mean Corpuscular Hemoglobin 31.7 pg (27.0-34.0); Mean Platelet Volume 9.8 fL (7.0-11.0); Mono # (Auto) 0.7 th/mm3 (0.0-0.9); Neut # (Auto) 10.8 th/mm3 (1.8-7.7); Neut % (Auto) 78.9 % (16.0-70.0); Platelet Count 224 th/mm3 (150-450); Red Cell Distribution Width 19.3 % (11.6-17.2); White Blood Count 13.7 th/mm3 (4.0-11.0)
--- NOTE | 2018-04-24 10:01 | P.PNNP ---
Subjective Interval history: Patient was seen, no distress. Patient stated she wants to go home. Patient to be dialyzed today. Has been hypotensive, Midodrine ordered. AVF ligation yesterday. Labs for today are pending. <Nehemiah Reyes - Last Filed: 04/24/18 10:02> Physical Exam Vital signs: Vital Signs 04/23/18 12:15 04/23/18 12:40 04/23/18 14:00 Temperature 97.8 F 97.8 F Pulse Rate 63 64 68 Respiratory Rate 17 17 Blood Pressure 128/56 L 133/74 Pulse Oximetry 98 98 04/23/18 16:00 04/23/18 18:00 04/23/18 20:00 Temperature 98.5 F 97.9 F Pulse Rate 71 60 67 Respiratory Rate 14 18 Blood Pressure 100/39 L 94/48 L Pulse Oximetry 100 100 04/23/18 21:29 04/23/18 22:00 04/23/18 23:43 Temperature Pulse Rate 67 Respiratory Rate 20 Blood Pressure Pulse Oximetry 100 04/24/18 00:00 04/24/18 02:00 04/24/18 04:00 Temperature 98 F 98.2 F Pulse Rate 65 64 66 Respiratory Rate 14 14 Blood Pressure 97/43 L 87/44 L Pulse Oximetry 98 100 04/24/18 06:00 04/24/18 08:00 Temperature Pulse Rate 63 Respiratory Rate Blood Pressure Pulse Oximetry 97 Intake & Output 04/23/18 04/24/18 04/24/18 18:59 06:59 18:59 Intake Total 1410 / 1410 280 / 280 Output Total 10 / 10 Balance 1400 / 1400 280 / 280 Weight 70.6 kg Intake: IV 790 / 790 100 / 100 D5W/1/2 NS Inj 1,000 ML @ 42 500 / 500 mls/hr IV.CONT .[id number] [facility] Rx# :[id number] Protonix Inj 80 MG In NS Inj 90 / 90 100 ML @ 10 mls/hr IV.CONT Q10H [facility] Rx#:[id number] Zosyn 2.25 GM Premix 50 ML @ 100 / 100 100 / 100 100 mls/hr IV.SIG Q6H [facility] Rx#: [id number] KCl 10 mEq Premix Inj 10 meq In 100 / 100 100 ml @ 100 mls/hr IV.SIG NOW ONE Rx#:[id number] Oral 420 / 420 180 / 180 Anesthesia Amount 200 / 200 Output: Estimated Blood Loss Other: # Voids 1 0 Date of Last Bowel Movement 04/22/18 04/23/18 # Bowel Movements 1 0 Narrative: GENERAL: Not in distress. HEAD: Normocephalic. EYES: No scleral icterus. No injection or drainage. NECK: Supple, trachea midline. No JVD or lymphadenopathy. CARDIOVASCULAR: Regular rate and rhythm without murmurs, gallops, or rubs. RESPIRATORY: Breath sounds equal bilaterally. No accessory muscle use. GASTROINTESTINAL: Abdomen soft, nondistended. EXTREMITIES: Mild edema. - Urinary Catheter Management Indwelling Urethral Catheter Cath placed during this visit: yes, but has since been removed by the nurse Reason for continuing: Hourly intake/output Insertion date: 04/14/18 Insertion time: 10:35 Removal date: 04/14/18 Removal time: 17:30 <Nehemiah Reyes - Last Filed: 04/24/18 10:02> Vital signs: Vital Signs 04/24/18 10:00 04/24/18 12:00 04/24/18 12:31 Temperature 98.5 F Pulse Rate 72 65 Respiratory Rate 15 Blood Pressure 122/49 L 154/56 H Pulse Oximetry 100 04/24/18 12:46 04/24/18 13:00 04/24/18 13:01 Temperature Pulse Rate 76 70 71 Respiratory Rate 16 15 15 Blood Pressure 164/82 H 144/63 H Pulse Oximetry 96 97 97 04/24/18 13:15 04/24/18 13:30 04/24/18 13:45 Temperature Pulse Rate 70 79 82 Respiratory Rate 16 22 20 Blood Pressure 141/53 H 92/55 L 94/55 L Pulse Oximetry 97 96 95 04/24/18 14:00 04/24/18 14:15 04/24/18 14:30 Temperature Pulse Rate 75 76 88 Respiratory Rate 20 16 17 Blood Pressure 109/48 L 103/43 L 99/47 L Pulse Oximetry 93 L 94 L 93 L 04/24/18 14:45 04/24/18 15:00 04/24/18 15:15 Temperature Pulse Rate 82 80 83 Respiratory Rate 18 17 20 Blood Pressure 102/45 L 102/41 L 84/38 L Pulse Oximetry 94 L 93 L 94 L 04/24/18 15:17 04/24/18 15:30 04/24/18 16:00 Temperature 98.7 F Pulse Rate 81 82 86 Respiratory Rate 21 19 19 Blood Pressure 93/46 L 102/45 L 200/91 H Pulse Oximetry 94 L 91 L 93 L 04/24/18 16:31 04/24/18 16:33 04/24/18 17:00 Temperature Pulse Rate 93 H 85 84 Respiratory Rate 22 17 16 Blood Pressure 242/112 H 209/149 H Pulse Oximetry 93 L 92 L 93 L 04/24/18 17:01 04/24/18 17:31 04/24/18 18:00 Temperature Pulse Rate 83 83 83 Respiratory Rate 18 17 18 Blood Pressure 140/53 L 147/52 H 140/57 L Pulse Oximetry 92 L 94 L 92 L 04/24/18 18:30 04/24/18 19:00 04/24/18 19:31 Temperature Pulse Rate 90 84 75 Respiratory Rate 23 17 17 Blood Pressure 141/80 H 120/51 L Pulse Oximetry 94 L 94 L 94 L 04/24/18 20:00 04/24/18 20:12 04/24/18 20:30 Temperature Pulse Rate 85 84 Respiratory Rate 17 16 Blood Pressure 112/46 L 106/77 Pulse Oximetry 94 L 93 L 93 L 04/24/18 21:00 04/24/18 22:00 04/24/18 22:12 Temperature Pulse Rate 81 83 87 Respiratory Rate 17 14 18 Blood Pressure 111/61 96/51 L Pulse Oximetry 96 97 98 04/24/18 23:00 04/25/18 00:00 04/25/18 00:01 Temperature Pulse Rate 87 87 88 Respiratory Rate 16 16 14 Blood Pressure 97/43 L 129/50 L Pulse Oximetry 96 95 95 04/25/18 01:00 04/25/18 02:00 04/25/18 02:01 Temperature Pulse Rate 86 88 88 Respiratory Rate 15 14 18 Blood Pressure 120/45 L 98/42 L Pulse Oximetry 95 95 94 L 04/25/18 03:00 04/25/18 03:13 04/25/18 03:38 Temperature Pulse Rate 85 87 92 H Respiratory Rate 17 16 18 Blood Pressure 88/41 L 88/46 L 96/51 L Pulse Oximetry 95 96 95 04/25/18 04:00 Temperature Pulse Rate 91 H Respiratory Rate 15 Blood Pressure 87/48 L Pulse Oximetry 93 L Intake & Output 04/24/18 04/25/18 04/25/18 18:59 06:59 18:59 Intake Total 650 / 650 1860 / 1860 Output Total 2500 / 2500 Balance -1850 / -1850 1860 / 1860 Weight 70.7 kg Intake: IV 100 / 100 1560 / 1560 Zosyn 2.25 GM Premix 50 ML @ 100 / 100 50 / 50 100 mls/hr IV.SIG Q6H [facility] Rx#: [id number] Oral 550 / 550 300 / 300 Output: Urine 500 / 500 Hemodialysis Amount 1999 Other: # Incontinent Voids 1 Date of Last Bowel Movement 04/24/18 04/24/18 # Bowel Movements 3 # Incontinent Bowel Movements 2 1 - Urinary Catheter Management Indwelling Urethral Catheter Cath placed during this visit: no <Blake Michel - Last Filed: 04/25/18 08:46> Assessment and Plan - Assessment (1) ESRD (end stage renal disease) Code(s): N18.6 - End stage renal disease Status: Chronic Plan: Patient gets dialysis TTS. Patient to be dialyzed today. Has been hypotensive, Midodrine ordered. Labs for today are pending. L arm AVF, avoid blood pressure or blood draws in left arm. AVF ligation yesterday. Monitor fluid and electrolytes. Monitor phosphorus intermittently. (2) Hyperkalemia Code(s): E87.5 - Hyperkalemia Status: Acute Plan: Resolved after dialysis. Monitor. (3) Acute metabolic encephalopathy Code(s): G93.41 - Metabolic encephalopathy Status: Acute (4) Acute hypoxemic respiratory failure Code(s): J96.01 - Acute respiratory failure with hypoxia Status: Acute Plan: s/p extubation. On O2 nasal cannula. (5) Septic shock Code(s): A41.9 - Sepsis, unspecified organism; R65.21 - Severe sepsis with septic shock Status: Resolved Plan: On broad-spectrum antibiotic. ID on the case. <Nehemiah Reyes - Last Filed: 04/24/18 10:02> - Assessment (1) ESRD (end stage renal disease) Code(s): N18.6 - End stage renal disease Status: Chronic (2) Hyperkalemia Code(s): E87.5 - Hyperkalemia Status: Acute (3) Acute metabolic encephalopathy Code(s): G93.41 - Metabolic encephalopathy Status: Acute (4) Acute hypoxemic respiratory failure Code(s): J96.01 - Acute respiratory failure with hypoxia Status: Acute (5) Septic shock Code(s): A41.9 - Sepsis, unspecified organism; R65.21 - Severe sepsis with septic shock Status: Resolved - Attending Attestation patient was seen and examined. Started Midodrine. Patient is requesting to be discharged. <Blake Michel - Last Filed: 04/25/18 08:46>
[2018-04-24 10:06] LABS: Calcium 6.5 mg/dL (8.5-10.1); Carbon Dioxide 21.4 meq/L (21.0-32.0); Potassium 3.3 meq/L (3.5-5.1)
[2018-04-24 10:29] LABS: Calcium-Albumin Corrected 8.1 mg/dL (8.5-10.1)
[2018-04-24] MEDS: Artificial Tears Opth Drops 15 ML Bottle EACH EYE SCH ×3 (11:30→20:07)
[2018-04-24] MEDS: Heparin 10,000 UNITS/10 ML Vial (for IV use) OTHER PRN (13:56)
--- NOTE | 2018-04-24 14:00 | P.PN ---
Subjective Interval history: In bed appears chronically ill. Some sob, on NC sattign well Noted with low BP after HD, started on midodrine per nephro However patient noted anxious in the afternoon and her SBP in 200s . Patient is also telling me she wants to go home. PT recommends SNF , patient says she wants to go home... Physical Exam Vital signs: Vital Signs 04/23/18 14:00 04/23/18 16:00 04/23/18 18:00 Temperature 98.5 F Pulse Rate 68 71 60 Respiratory Rate 14 Blood Pressure 100/39 L Pulse Oximetry 100 04/23/18 20:00 04/23/18 21:29 04/23/18 22:00 Temperature 97.9 F Pulse Rate 67 67 Respiratory Rate 18 20 Blood Pressure 94/48 L Pulse Oximetry 100 04/23/18 23:43 04/24/18 00:00 04/24/18 02:00 Temperature 98 F Pulse Rate 65 64 Respiratory Rate 14 Blood Pressure 97/43 L Pulse Oximetry 100 98 04/24/18 04:00 04/24/18 06:00 04/24/18 08:00 Temperature 98.2 F Pulse Rate 66 63 65 Respiratory Rate 14 Blood Pressure 87/44 L Pulse Oximetry 100 97 04/24/18 10:00 04/24/18 12:00 Temperature Pulse Rate 72 65 Respiratory Rate Blood Pressure Pulse Oximetry Intake & Output 04/23/18 04/24/18 04/24/18 18:59 06:59 18:59 Intake Total 1410 / 1410 280 / 280 50 / 50 Output Total 10 / 10 Balance 1400 / 1400 280 / 280 50 / 50 Weight 70.6 kg Intake: IV 790 / 790 100 / 100 50 / 50 D5W/1/2 NS Inj 1,000 ML @ 42 500 / 500 mls/hr IV.CONT .[id number] CIRILO Rx# :[id number] Protonix Inj 80 MG In NS Inj 90 / 90 100 ML @ 10 mls/hr IV.CONT Q10H CIRILO Rx#:[id number] Zosyn 2.25 GM Premix 50 ML @ 100 / 100 100 / 100 50 / 50 100 mls/hr IV.SIG Q6H CIRILO Rx#: [id number] KCl 10 mEq Premix Inj 10 meq In 100 / 100 100 ml @ 100 mls/hr IV.SIG NOW ONE Rx#:[id number] Oral 420 / 420 180 / 180 Anesthesia Amount 200 / 200 Output: Estimated Blood Loss Other: # Voids 1 0 Date of Last Bowel Movement 04/22/18 04/23/18 04/24/18 # Bowel Movements 1 0 Narrative: GENERAL: 72 yo female, skinny , appears in nad. Anxious. HEAD: Normocephalic. EYES: No scleral icterus. No injection or drainage. NECK: Supple, trachea midline. No JVD or lymphadenopathy. CARDIOVASCULAR: Regular rate and rhythm without murmurs, gallops, or rubs. RESPIRATORY: Breath sounds equal bilaterally. No accessory muscle use. GASTROINTESTINAL: Abdomen soft, nondistended. EXTREMITIES: Mild edema. - Urinary Catheter Management Indwelling Urethral Catheter Cath placed during this visit: yes, but has since been removed by the nurse Reason for continuing: Hourly intake/output Insertion date: 04/14/18 Insertion time: 10:35 Removal date: 04/14/18 Removal time: 17:30 Results - Labs CBC & Chem 7: 04/24/18 09:11 04/24/18 09:11 Laboratory Results - last 24 hr 04/23/18 04/23/18 04/23/18 16:50 17:19 23:16 WBC RBC Hgb 8.5 L 7.4 L Hct 25.3 L 22.6 L MCV MCH MCHC RDW Plt Count MPV Neut % (Auto) Lymph % (Auto) [place] % (Auto) Eos % (Auto) Baso % (Auto) Neut # (Auto) Lymph # (Auto) [place] # (Auto) Eos # (Auto) Baso # (Auto) WBC Differential Differential Comment Sodium Potassium Chloride Carbon Dioxide Anion Gap BUN Creatinine Estimated GFR POC Glucose 177 H Random Glucose Calcium Calcium Adj for Albumin Albumin 04/24/18 04/24/18 04/24/18 00:15 05:27 09:11 WBC 13.7 H RBC 2.40 L Hgb 7.6 L Hct 22.1 L MCV 92.0 MCH 31.7 MCHC 34.4 RDW 19.3 H Plt Count 224 MPV 9.8 Neut % (Auto) 78.9 H Lymph % (Auto) 14.3 [place] % (Auto) 5.0 Eos % (Auto) 1.6 Baso % (Auto) 0.2 Neut # (Auto) 10.8 H Lymph # (Auto) 2.0 [place] # (Auto) 0.7 Eos # (Auto) 0.2 Baso # (Auto) 0.0 WBC Differential . Differential Comment Auto diff final Sodium Potassium Chloride Carbon Dioxide Anion Gap BUN Creatinine Estimated GFR POC Glucose 168 H 122 H Random Glucose Calcium Calcium Adj for Albumin Albumin 04/24/18 04/24/18 09:11 13:05 WBC RBC Hgb Hct MCV MCH MCHC RDW Plt Count MPV Neut % (Auto) Lymph % (Auto) [place] % (Auto) Eos % (Auto) Baso % (Auto) Neut # (Auto) Lymph # (Auto) [place] # (Auto) Eos # (Auto) Baso # (Auto) WBC Differential Differential Comment Sodium 138 Potassium 3.3 L Chloride 98 Carbon Dioxide 21.4 Anion Gap 19 H BUN 95 H Creatinine 8.86 H Estimated GFR 4 L POC Glucose 149 H Random Glucose 107 H Calcium 6.5 L* Calcium Adj for Albumin 8.1 L Albumin 2.0 L Assessment and Plan - Plan NEURO/PSYCH: Acute metabolic encephalopathy-resolving 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 -Encephalopathy seems to be metabolic secondary to severe sepsis -CT of the head shows old bilateral cerebellar strokes, and nothing acute. -As needed fentanyl 25 mcg every 3 hours as needed pain Psychosis/ poss ICU delirium , agitation and anxiety. start seroquel RESP: Acute hypoxemic respiratory failure, resolving -Intubated in the emergency department for lack of airway protection and hypoxia -Extubated 04/17 -nasal cannula maintain saturations greater than equal to 90%. Wean as tolerated -albuterol/ipratropium aerosols every 4 hours with albuterol aerosols every 2 hours as needed -Incentive spirometry while -Head of bed at 30 degrees -Chest x-ray -small left infiltrate versus small left pleural effusion CV: NSTEMI likely type II Paroxysmal atrial fibrillation with 2 1 AV conduction Hypotension Lactic acidosis History of hypertension -GI bleeding currently holding aspirin 81 mg daily -Cardiology Dr. Fermin consulted NSTEMI most likely type II from sepsis -Hold all home antihypertensives (hold nifedipine, clonidine, hydralazine and Lasix) -Cardiology recommended diltiazem 30 mg 4 times daily and carvedilol 3.125 mg twice daily -2d echocardiogram revealed normal left ventricular size. EF 65-70%. Left lipomatous atrial septum,. Trace MR/TR GI: Improved only downtrending elevated liver enzymes Admitting diagnosis of emphysematous cholecystitis/likely passed stone History of GERD -Diet Per GI. -Currently on pantoprazole drip at 8 mg an hour -Holding Nepro at 40 cc an hour goal. -Speech eval for swallow.-Failed 04/19 -CT abdomen pelvis shows small amount of air in the fundus of the gallbladder, this is concerning for emphysematous cholecystitis given clinical picture -Initially, stat consult to general surgery and discussed with Dr. Cortes. Recommended conservative therapy at the present time. -Dr. Cortes/general surgery and gastroenterology signed off MRCP -04/16 - cholelithiasis with multiple small gallstones layering dependently. There is no gallbladder wall thickening or inflammatory change. No gas is visualized on the MRI. Common bile duct measuring up to 1 cm with no filling defects or mass. This could represent distal obstruction or prior passage of stones. Multiple benign-appearing small cystic structures in the pancreas. Bilateral simple renal cysts as well as a more complex right parapelvic cyst. -Possible ERCP. LFTs very slowly trending downward -GI following still -With bright red blood per rectum we will nuclear medicine bleeding scan was negative-04/20. Repeat ordered by GI -GI for EGD with gastritis and colonoscopy -sigmoid/colonic diverticulosis. Bright red blood. Poor prep. Renal/: End-stage renal disease -Monitor renal function closely. -Dr. Gillette consulted for emergent hemodialysis on 04/14. Dialyzed 04/21 -Monitor urine output accurate I's and O's Noted hypotensive after HD on 04/24/18 . Started on midodrine per nephro However patient anxious BP in 200s , repeat improved. ID: Septic shock Admitting diagnosis of possible emphysematous cholecystitis/likely passed stone Possible UTI -Antibiotics with piperacillin/tazobactam. Discontinued vancomycin 04/16 -Infectious disease continues to follow and general surgery consulted. -Follow-up blood urine and sputum cultures no growth to date HEME: Normocytic anemia Leukocytosis -Monitor CBC, coags. Check coags now -Receiving 2 units PRBCs on 04/20. Recheck at 1500 and 2300 hrs. today ENDO/FEN: Hyperphosphatemia Hypokalemia Type 2 diabetes -Sliding scale insulin -We will start on calcium acetate at 1334 g 3 times daily MSK Cyanosis left upper extremity Followed by Dr. Wu. S/P AV fistula ligation by Dr. Stuart 04/23 PROPH: -Bilateral lower extremity SCDs. Heparin sq/omeprazole LINES: -Utilize peripheral IVs, left subclavian central line day #5 with left femoral arterial line day #3 both discontinued 12/12 Discussed with the patient, ICU nurse Transfer to med surg floor
[2018-04-24] MEDS ORDERED: QUEtiapine 25 MG Tablet PO ONE (17:22)
[2018-04-24] MEDS ORDERED: Loperamide 2 MG Capsule PO PRN (18:30)
--- NOTE | 2018-04-24 21:14 | P.PNVS ---
Subjective Post Op Day #: 1 Subjective/Hospital Course: no acute issues Objective Vital Signs / I&O: Vital Signs 04/23/18 21:29 04/23/18 22:00 04/23/18 23:43 Temperature Pulse Rate 67 Respiratory Rate 20 Blood Pressure Pulse Oximetry 100 04/24/18 00:00 04/24/18 02:00 04/24/18 04:00 Temperature 98 F 98.2 F Pulse Rate 65 64 66 Respiratory Rate 14 14 Blood Pressure 97/43 L 87/44 L Pulse Oximetry 98 100 04/24/18 06:00 04/24/18 08:00 04/24/18 10:00 Temperature 98.3 F Pulse Rate 63 65 72 Respiratory Rate 17 Blood Pressure 108/45 L Pulse Oximetry 100 04/24/18 12:00 04/24/18 12:31 04/24/18 12:46 Temperature 98.5 F Pulse Rate 65 76 Respiratory Rate 15 16 Blood Pressure 122/49 L 154/56 H 164/82 H Pulse Oximetry 100 96 04/24/18 13:00 04/24/18 13:01 04/24/18 13:15 Temperature Pulse Rate 70 71 70 Respiratory Rate 15 15 16 Blood Pressure 144/63 H 141/53 H Pulse Oximetry 97 97 97 04/24/18 13:30 04/24/18 13:45 04/24/18 14:00 Temperature Pulse Rate 79 82 75 Respiratory Rate 22 20 20 Blood Pressure 92/55 L 94/55 L 109/48 L Pulse Oximetry 96 95 93 L 04/24/18 14:15 04/24/18 14:30 04/24/18 14:45 Temperature Pulse Rate 76 88 82 Respiratory Rate 16 17 18 Blood Pressure 103/43 L 99/47 L 102/45 L Pulse Oximetry 94 L 93 L 94 L 04/24/18 15:00 04/24/18 15:15 04/24/18 15:17 Temperature Pulse Rate 80 83 81 Respiratory Rate 17 20 21 Blood Pressure 102/41 L 84/38 L 93/46 L Pulse Oximetry 93 L 94 L 94 L 04/24/18 15:30 04/24/18 16:00 04/24/18 16:31 Temperature 98.7 F Pulse Rate 82 86 93 H Respiratory Rate 19 19 22 Blood Pressure 102/45 L 200/91 H 242/112 H Pulse Oximetry 91 L 93 L 93 L 04/24/18 16:33 04/24/18 17:00 04/24/18 17:01 Temperature Pulse Rate 85 84 83 Respiratory Rate 17 16 18 Blood Pressure 209/149 H 140/53 L Pulse Oximetry 92 L 93 L 92 L 04/24/18 17:31 04/24/18 18:00 04/24/18 18:30 Temperature Pulse Rate 83 83 90 Respiratory Rate 17 18 23 Blood Pressure 147/52 H 140/57 L 141/80 H Pulse Oximetry 94 L 92 L 94 L 04/24/18 19:00 04/24/18 19:31 04/24/18 20:00 Temperature Pulse Rate 84 75 85 Respiratory Rate 17 17 17 Blood Pressure 120/51 L 112/46 L Pulse Oximetry 94 L 94 L 94 L 04/24/18 20:12 04/24/18 20:30 Temperature Pulse Rate 84 Respiratory Rate 16 Blood Pressure 106/77 Pulse Oximetry 93 L 93 L Intake & Output 04/24/18 04/24/18 04/25/18 06:59 18:59 06:59 Intake Total 280 / 280 650 / 650 Output Total 2500 / 2500 Balance 280 / 280 -1850 / -1850 Weight 70.6 kg Intake: IV 100 / 100 100 / 100 Zosyn 2.25 GM Premix 50 ML @ 100 / 100 100 / 100 100 mls/hr IV.SIG Q6H [facility]ILO Rx#: [id number] Oral 180 / 180 550 / 550 Output: Urine 500 / 500 Hemodialysis Amount 1999 / 1999 Other: # Voids 0 Date of Last Bowel Movement 04/23/18 04/24/18 04/24/18 # Bowel Movements 0 3 # Incontinent Bowel Movements 2 Exam: LUE wound CDI left hand viable no signs of ischemia +1 radial pulse with a good multiphasic signal Laboratory Results - last 24 hr 04/23/18 04/24/18 04/24/18 23:16 00:15 05:27 WBC RBC Hgb 7.4 L Hct 22.6 L MCV MCH MCHC RDW Plt Count MPV Neut % (Auto) Lymph % (Auto) [place] % (Auto) Eos % (Auto) Baso % (Auto) Neut # (Auto) Lymph # (Auto) [place] # (Auto) Eos # (Auto) Baso # (Auto) WBC Differential Differential Comment Sodium Potassium Chloride Carbon Dioxide Anion Gap BUN Creatinine Estimated GFR POC Glucose 168 H 122 H Random Glucose Calcium Calcium Adj for Albumin Albumin 04/24/18 04/24/18 04/24/18 09:11 09:11 13:05 WBC 13.7 H RBC 2.40 L Hgb 7.6 L Hct 22.1 L MCV 92.0 MCH 31.7 MCHC 34.4 RDW 19.3 H Plt Count 224 MPV 9.8 Neut % (Auto) 78.9 H Lymph % (Auto) 14.3 [place] % (Auto) 5.0 Eos % (Auto) 1.6 Baso % (Auto) 0.2 Neut # (Auto) 10.8 H Lymph # (Auto) 2.0 [place] # (Auto) 0.7 Eos # (Auto) 0.2 Baso # (Auto) 0.0 WBC Differential . Differential Comment Auto diff final Sodium 138 Potassium 3.3 L Chloride 98 Carbon Dioxide 21.4 Anion Gap 19 H BUN 95 H Creatinine 8.86 H Estimated GFR 4 L POC Glucose 149 H Random Glucose 107 H Calcium 6.5 L* Calcium Adj for Albumin 8.1 L Albumin 2.0 L 04/24/18 18:31 WBC RBC Hgb Hct MCV MCH MCHC RDW Plt Count MPV Neut % (Auto) Lymph % (Auto) [place] % (Auto) Eos % (Auto) Baso % (Auto) Neut # (Auto) Lymph # (Auto) [place] # (Auto) Eos # (Auto) Baso # (Auto) WBC Differential Differential Comment Sodium Potassium Chloride Carbon Dioxide Anion Gap BUN Creatinine Estimated GFR POC Glucose 179 H Random Glucose Calcium Calcium Adj for Albumin Albumin Assessment and Plan - Assessment (1) Chronic kidney disease Code(s): N18.9 - Chronic kidney disease, unspecified Status: Acute - Plan LUE steal syndrome S/P AVF ligation Hand viable without signs of ischemia patient will need vein mapping and plan new fistula creation as outpatient after recover from acute illness Alexis Stuart MD [phone]
[2018-04-24] MEDS: Gabapentin 100 MG Capsule PO SCH (22:02)
[2018-04-24] MEDS: Lactobacillus Acidophilus/L. Spores Tablet PO SCH (22:02)
[2018-04-25] MEDS: Piperacil/Tazo 2.25 GM Premix 50 ML IV.SIG SCH ×4 (01:34→20:31)
[2018-04-25] MEDS: Oral Hygiene Kit OROPHARYNG SCH ×4 (03:56→23:43)
[2018-04-25] MEDS: Artificial Tears Opth Drops 15 ML Bottle EACH EYE SCH ×3 (03:56→20:32)
[2018-04-25] MEDS: Insulin NovoLOG Aspart Correctional Sugar Inj SQ SCH ×4 (06:08→23:46)
[2018-04-25] MEDS: dilTIAZem 30 MG Tablet PO SCH ×4 (08:52→20:31)
[2018-04-25] MEDS: Vitamin B Complex/Vit C/Folic Tablet PO SCH (08:52)
[2018-04-25] MEDS: Chlorhexidine 0.12% Oral Kit 15 ML UDC OROPHARYNG SCH ×2 (08:53→20:32)
[2018-04-25] MEDS: Calcium Acetate 667 MG Capsule NG/OG SCH ×3 (08:53→17:49)
[2018-04-25] MEDS: QUEtiapine 25 MG Tablet PO SCH ×2 (08:53→12:37)
[2018-04-25] MEDS: Lactobacillus Acidophilus/L. Spores Tablet PO SCH ×2 (08:53→20:31)
[2018-04-25] MEDS: Mupirocin 2% Nasal Oint Topical Syringe EACH NARE SCH ×2 (08:53→20:32)
[2018-04-25 10:02] LABS: Baso # (Auto) 0.1 th/mm3 (0.0-0.2); Baso % (Auto) 0.7 % (0.0-2.0); Eos # (Auto) 0.2 th/mm3 (0.0-0.4); Eos % (Auto) 1.1 % (0.0-4.0); Hematocrit 25.1 % (35.0-46.0); Hemoglobin 8.7 gm/dL (11.6-15.3); Lymph % (Auto) 14.3 % (9.0-44.0); Mean Corpuscular HGB Conc 34.5 % (32.0-36.0); Mean Corpuscular Hemoglobin 32.4 pg (27.0-34.0); Mean Platelet Volume 10.1 fL (7.0-11.0); Mono % (Auto) 7.1 % (0.0-8.0); Neut # (Auto) 10.8 th/mm3 (1.8-7.7); Neut % (Auto) 76.8 % (16.0-70.0); Platelet Count 295 th/mm3 (150-450); Red Blood Count 2.67 mil/mm3 (4.00-5.30); Red Cell Distribution Width 19.3 % (11.6-17.2)
--- NOTE | 2018-04-25 10:09 | P.PNNP ---
Subjective Interval history: Patient was seen, no distress, requesting to go home. Patient gets dialysis TTS, 2 L removed yesterday. <Nehemiah Reyes - Last Filed: 04/25/18 10:05> Physical Exam Vital signs: Vital Signs 04/24/18 12:00 04/24/18 12:31 04/24/18 12:46 Temperature 98.5 F Pulse Rate 65 76 Respiratory Rate 15 16 Blood Pressure 122/49 L 154/56 H 164/82 H Pulse Oximetry 100 96 04/24/18 13:00 04/24/18 13:01 04/24/18 13:15 Temperature Pulse Rate 70 71 70 Respiratory Rate 15 15 16 Blood Pressure 144/63 H 141/53 H Pulse Oximetry 97 97 97 04/24/18 13:30 04/24/18 13:45 04/24/18 14:00 Temperature Pulse Rate 79 82 75 Respiratory Rate 22 20 20 Blood Pressure 92/55 L 94/55 L 109/48 L Pulse Oximetry 96 95 93 L 04/24/18 14:15 04/24/18 14:30 04/24/18 14:45 Temperature Pulse Rate 76 88 82 Respiratory Rate 16 17 18 Blood Pressure 103/43 L 99/47 L 102/45 L Pulse Oximetry 94 L 93 L 94 L 04/24/18 15:00 04/24/18 15:15 04/24/18 15:17 Temperature Pulse Rate 80 83 81 Respiratory Rate 17 20 21 Blood Pressure 102/41 L 84/38 L 93/46 L Pulse Oximetry 93 L 94 L 94 L 04/24/18 15:30 04/24/18 16:00 04/24/18 16:31 Temperature 98.7 F Pulse Rate 82 86 93 H Respiratory Rate 19 19 22 Blood Pressure 102/45 L 200/91 H 242/112 H Pulse Oximetry 91 L 93 L 93 L 04/24/18 16:33 04/24/18 17:00 04/24/18 17:01 Temperature Pulse Rate 85 84 83 Respiratory Rate 17 16 18 Blood Pressure 209/149 H 140/53 L Pulse Oximetry 92 L 93 L 92 L 04/24/18 17:31 04/24/18 18:00 04/24/18 18:30 Temperature Pulse Rate 83 83 90 Respiratory Rate 17 18 23 Blood Pressure 147/52 H 140/57 L 141/80 H Pulse Oximetry 94 L 92 L 94 L 04/24/18 19:00 04/24/18 19:31 04/24/18 20:00 Temperature Pulse Rate 84 75 85 Respiratory Rate 17 17 17 Blood Pressure 120/51 L 112/46 L Pulse Oximetry 94 L 94 L 94 L 04/24/18 20:12 04/24/18 20:30 04/24/18 21:00 Temperature Pulse Rate 84 81 Respiratory Rate 16 17 Blood Pressure 106/77 111/61 Pulse Oximetry 93 L 93 L 96 04/24/18 22:00 04/24/18 22:12 04/24/18 23:00 Temperature Pulse Rate 83 87 87 Respiratory Rate 14 18 16 Blood Pressure 96/51 L 97/43 L Pulse Oximetry 97 98 96 04/25/18 00:00 04/25/18 00:01 04/25/18 01:00 Temperature Pulse Rate 87 88 86 Respiratory Rate 16 14 15 Blood Pressure 129/50 L 120/45 L Pulse Oximetry 95 95 95 04/25/18 02:00 04/25/18 02:01 04/25/18 03:00 Temperature Pulse Rate 88 88 85 Respiratory Rate 14 18 17 Blood Pressure 98/42 L 88/41 L Pulse Oximetry 95 94 L 95 04/25/18 03:13 04/25/18 03:38 04/25/18 04:00 Temperature Pulse Rate 87 92 H 91 H Respiratory Rate 16 18 15 Blood Pressure 88/46 L 96/51 L 87/48 L Pulse Oximetry 96 95 93 L 04/25/18 08:48 Temperature Pulse Rate Respiratory Rate Blood Pressure Pulse Oximetry 94 L Intake & Output 04/24/18 04/25/18 04/25/18 18:59 06:59 18:59 Intake Total 650 / 650 1909 Output Total 2500 / 2500 Balance -1850 / -1850 1909 Weight 70.7 kg Intake: IV 100 / 100 1610 / 1610 Zosyn 2.25 GM Premix 50 ML @ 100 / 100 100 / 100 100 mls/hr IV.SIG Q6H CIRILO Rx#: [id number] Oral 550 / 550 300 / 300 Output: Urine 500 / 500 Hemodialysis Amount 1999 Other: # Incontinent Voids 1 Date of Last Bowel Movement 04/24/18 04/24/18 # Bowel Movements 3 # Incontinent Bowel Movements 2 1 Narrative: GENERAL: No distress. HEAD: Normocephalic. NECK: Supple, trachea midline. No JVD or lymphadenopathy. CARDIOVASCULAR: Regular rate and rhythm without murmurs, gallops, or rubs. RESPIRATORY: Breath sounds equal bilaterally. No accessory muscle use. GASTROINTESTINAL: Abdomen soft, nondistended. EXTREMITIES: Mild edema present. - Urinary Catheter Management Indwelling Urethral Catheter Cath placed during this visit: yes, but has since been removed by the nurse Reason for continuing: Hourly intake/output Insertion date: 04/14/18 Insertion time: 10:35 Removal date: 04/14/18 Removal time: 17:30 <Nehemiah Reyes - Last Filed: 04/25/18 10:05> Vital signs: Vital Signs 04/25/18 22:31 04/25/18 23:00 04/25/18 23:30 Temperature Pulse Rate 74 79 79 Respiratory Rate 16 17 16 Blood Pressure 124/53 L 129/55 L 119/51 L Pulse Oximetry 92 L 95 94 L 04/26/18 00:00 04/26/18 00:30 04/26/18 01:00 Temperature 98.1 F Pulse Rate 79 77 73 Respiratory Rate 17 Blood Pressure 119/49 L 131/58 L Pulse Oximetry 92 L 93 L 94 L 04/26/18 01:02 04/26/18 01:30 04/26/18 02:00 Temperature Pulse Rate 76 74 72 Respiratory Rate Blood Pressure 113/48 L 120/50 L 132/54 L Pulse Oximetry 95 94 L 95 04/26/18 02:30 04/26/18 03:00 04/26/18 03:30 Temperature Pulse Rate 73 72 73 Respiratory Rate Blood Pressure 122/47 L 112/46 L 120/51 L Pulse Oximetry 95 95 93 L 04/26/18 04:00 04/26/18 04:30 04/26/18 05:00 Temperature 98.4 F Pulse Rate 73 74 75 Respiratory Rate 18 Blood Pressure 125/57 L 122/52 L 133/50 L Pulse Oximetry 94 L 95 94 L 04/26/18 05:30 04/26/18 06:00 04/26/18 06:30 Temperature Pulse Rate 73 79 83 Respiratory Rate 40 H Blood Pressure 123/47 L 136/58 L 135/60 Pulse Oximetry 100 99 100 04/26/18 07:00 04/26/18 07:30 04/26/18 08:00 Temperature Pulse Rate 80 78 85 Respiratory Rate Blood Pressure 132/51 L 136/52 L 131/87 Pulse Oximetry 99 96 95 04/26/18 08:30 04/26/18 09:00 04/26/18 10:00 Temperature Pulse Rate 89 87 78 Respiratory Rate 16 14 14 Blood Pressure 128/56 L 126/68 Pulse Oximetry 96 94 L 93 L 04/26/18 10:01 04/26/18 10:30 04/26/18 11:00 Temperature Pulse Rate 76 78 84 Respiratory Rate 15 16 17 Blood Pressure 105/43 L 111/69 Pulse Oximetry 93 L 93 L 93 L 04/26/18 11:01 04/26/18 11:51 04/26/18 11:52 Temperature Pulse Rate 87 86 87 Respiratory Rate 17 17 18 Blood Pressure 125/81 96/38 L 146/56 H Pulse Oximetry 93 L 94 L 94 L 04/26/18 12:00 04/26/18 12:01 04/26/18 12:16 Temperature Pulse Rate 84 83 80 Respiratory Rate 14 17 15 Blood Pressure 161/60 H 84/45 L Pulse Oximetry 93 L 92 L 93 L 04/26/18 12:31 04/26/18 12:45 04/26/18 13:00 Temperature Pulse Rate 75 76 74 Respiratory Rate 14 12 12 Blood Pressure 93/43 L 91/44 L 88/41 L Pulse Oximetry 94 L 94 L 94 L 04/26/18 13:15 04/26/18 13:30 04/26/18 13:32 Temperature Pulse Rate 72 78 77 Respiratory Rate 13 15 13 Blood Pressure 88/42 L 72/35 L 77/35 L Pulse Oximetry 94 L 94 L 94 L 04/26/18 13:45 04/26/18 14:00 04/26/18 14:15 Temperature Pulse Rate 79 84 86 Respiratory Rate 24 22 10 L Blood Pressure 87/35 L 111/47 L 108/49 L Pulse Oximetry 97 96 94 L 04/26/18 14:30 04/26/18 14:45 04/26/18 15:00 Temperature Pulse Rate 82 83 84 Respiratory Rate 13 20 18 Blood Pressure 104/44 L 92/42 L 92/36 L Pulse Oximetry 94 L 95 96 04/26/18 15:02 04/26/18 15:15 04/26/18 15:30 Temperature Pulse Rate 83 86 90 Respiratory Rate 18 17 19 Blood Pressure 102/45 L 92/51 L 89/41 L Pulse Oximetry 93 L 94 L 94 L 04/26/18 15:45 04/26/18 16:00 04/26/18 16:15 Temperature Pulse Rate 84 88 86 Respiratory Rate 15 16 18 Blood Pressure 87/39 L 84/35 L 99/35 L Pulse Oximetry 92 L 96 96 04/26/18 16:30 04/26/18 16:45 04/26/18 17:00 Temperature Pulse Rate 83 82 82 Respiratory Rate 18 16 15 Blood Pressure 94/40 L 90/41 L 84/39 L Pulse Oximetry 92 L 94 L 93 L 04/26/18 17:15 04/26/18 17:31 04/26/18 17:45 Temperature Pulse Rate 86 88 87 Respiratory Rate 17 17 16 Blood Pressure 78/38 L 128/45 L 115/44 L Pulse Oximetry 95 95 95 04/26/18 18:00 04/26/18 18:15 04/26/18 18:30 Temperature Pulse Rate 89 85 86 Respiratory Rate 26 H 17 18 Blood Pressure 81/44 L 89/42 L 82/49 L Pulse Oximetry 97 96 04/26/18 18:45 04/26/18 19:00 04/26/18 19:15 Temperature Pulse Rate 91 H 88 87 Respiratory Rate 17 16 19 Blood Pressure 94/48 L 100/48 L 101/45 L Pulse Oximetry 84 L 04/26/18 19:30 04/26/18 19:35 04/26/18 19:46 Temperature 98.2 F 98.2 F Pulse Rate 90 90 91 H Respiratory Rate 19 14 17 Blood Pressure 99/48 L 99/48 L 154/70 H Pulse Oximetry 96 96 04/26/18 19:48 04/26/18 20:00 04/26/18 20:16 Temperature 98.2 F Pulse Rate 95 H 89 88 Respiratory Rate 20 17 17 Blood Pressure 154/70 H 162/58 H 141/56 H Pulse Oximetry 96 95 96 04/26/18 20:17 04/26/18 21:46 Temperature 98.5 F Pulse Rate 82 Respiratory Rate 18 Blood Pressure 118/51 L Pulse Oximetry 95 95 Intake & Output 04/26/18 04/26/18 04/27/18 06:59 18:59 06:59 Intake Total 500 / 500 300 / 300 450 / 450 Output Total 100 / 100 1600 / 1600 Balance 400 / 400 -1300 / -1300 450 / 450 Weight 71.7 kg Intake: IV 200 / 200 300 / 300 Flexbumin 25% Inj 100 ML @ 60 100 / 100 200 / 200 mls/hr IV.SIG WITH DIALYSIS PRN Rx#:[id number] Zosyn 2.25 GM Premix 50 ML @ 100 / 100 100 / 100 100 mls/hr IV.SIG Q6H CIRILO Rx#: [id number] Oral 300 / 300 Other 50 / 50 Rbc As-3 Leukoreduced Unit 50 / 50 [id number] Intake (Blood Product) Amt 400 / 400 Rbc As-3 Leukoreduced Unit 400 / 400 [id number] Output: Urine 100 / 100 600 / 600 Hemodialysis Amount 1000 / 1000 Other: # Voids 1 Date of Last Bowel Movement 04/25/18 04/25/18 04/25/18 # Bowel Movements 2 # Incontinent Bowel Movements 1 - Urinary Catheter Management Indwelling Urethral Catheter Cath placed during this visit: no <Blake Michel - Last Filed: 04/26/18 22:02> Assessment and Plan - Assessment (1) ESRD (end stage renal disease) Code(s): N18.6 - End stage renal disease Status: Chronic Plan: Patient gets dialysis TTS, 2 L removed yesterday. Has been hypotensive, on Midodrine. Labs for today are pending. L arm AVF, avoid blood pressure or blood draws in left arm. s/p AVF ligation. Monitor fluid and electrolytes. Monitor phosphorus intermittently. Patient being set up to receive dialysis at [facility] upon discharge. (2) Hyperkalemia Code(s): E87.5 - Hyperkalemia Status: Acute Plan: Resolved after dialysis. Monitor. (3) Acute metabolic encephalopathy Code(s): G93.41 - Metabolic encephalopathy Status: Acute (4) Acute hypoxemic respiratory failure Code(s): J96.01 - Acute respiratory failure with hypoxia Status: Acute Plan: s/p extubation. . (5) Septic shock Code(s): A41.9 - Sepsis, unspecified organism; R65.21 - Severe sepsis with septic shock Status: Resolved Plan: On broad-spectrum antibiotic. ID on the case. <Nehemiah Reyes - Last Filed: 04/25/18 10:05> - Assessment (1) ESRD (end stage renal disease) Code(s): N18.6 - End stage renal disease Status: Chronic (2) Hyperkalemia Code(s): E87.5 - Hyperkalemia Status: Acute (3) Acute metabolic encephalopathy Code(s): G93.41 - Metabolic encephalopathy Status: Acute (4) Acute hypoxemic respiratory failure Code(s): J96.01 - Acute respiratory failure with hypoxia Status: Acute (5) Septic shock Code(s): A41.9 - Sepsis, unspecified organism; R65.21 - Severe sepsis with septic shock Status: Resolved - Attending Attestation patient was seen and examined. Agree with above assessment and plan. <Blake Michel - Last Filed: 04/26/18 22:02>
[2018-04-25 10:28] LABS: Calcium 7.8 mg/dL (8.5-10.1); Carbon Dioxide 26.1 meq/L (21.0-32.0)
--- NOTE | 2018-04-25 11:39 | P.CONPSY ---
Provisional Diagnosis Admission Date: April 14, 2018 12:01 [place] I.: Adjustment disorder with depressed mood, history of depression History of Present Illness Service: Medicine Primary Care Provider: UNKNOWN Chief Complaint: AMS, septic shock History of Present Illness: The patient is a 72-year-old Cauc[place] woman, domiciled with a friend in [facility] , , mother of 5 kids, with a psychiatric history of depression, previous psychiatric admissions, but no suicide attempts, she has been stable on Zoloft, with past medical history significant for previous strokes, TIA, end-stage renal disease on hemodialysis (Monday, Monday schedule), Left AV fistula on 01/2018, type 2 diabetes, and hypertension. EMS was called as her roommate found her unresponsive last seen normal yesterday night. IV 0.4 mg of Narcan was given without any response. Patient was intubated in the emergency department for airway protection, for a GCS 8. Lab work showed leukocytosis of 12,500 with a left shift of 90% neutrophilia, 29% bands. Lactic acid came back at 6. CMP showed potassium of 6.0 bicarb of 16.7, anion gap of 24, liver enzymes were markedly elevated AST 1992 ALT 758, CPK 475, troponin 5.21. She was admitted with Encephalopathy seems to be metabolic secondary to severe sepsis. 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 She was delirious and treated with Seroquel 25 mg twice daily with good response. Chest x-ray -small left infiltrate versus small left pleural effusion. NSTEMI likely type II. Septic shock. Consulted to psychiatry to address psychosis and also capacity to participate medical decisions. Chart reviewed. Case discussed with nursing charge. On my psychiatric evaluation I find a patient that is calm, cooperative, irritable. Patient says that she is now here to see a psychiatrist. She says that she does want to go home. She was able to cooperate after reassurance. She says that she has been very sick, that her kidneys are not working very well and she has been having multiple complications, but she does want to go home and continue her medical treatment as an outpatient. At this moment the patient denies pain, distress, she says that [place] is here and she has new furniture coming home soon. The patient reports sadness related with her hospitalization and lack of agreement with medical team. She denies suicidal and homicidal ideation, she denies visual and auditory hallucinations patient is fully oriented x3, no attention deficit, no fluctuation of consciousness at the moment. PPHx: The patient is a 72-year-old Cauc[place] woman, domiciled with a friend in [facility], , mother of 5 kids, with a psychiatric history of depression, previous psychiatric admissions, but no suicide attempts, she has been stable on Zoloft PMHx: with past medical history significant for previous strokes, TIA, end- stage renal disease on hemodialysis (Monday, Monday schedule), Left AV fistula on 01/2018, type 2 diabetes, and hypertension Family Hx: Her father was schizophrenic and had PTSD Substance Hx: Denies the use of alcohol and illegal drug Social Hx: The patient was born in [place], she lives in [facility] with a friend, , mother of 5 kids, supported by patient, highest level of education is 12 grade Review of Systems All other systems reviewed negative except as stated in HPI PMFSH - History History 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, 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 - Medical History Medical History: Medical History (Last Reviewed 04/23/18 @ 15:54 by Joe Silverman) AV fistula History of MRSA infection Onset Date: ~04/14/18 Diabetes Dialysis catheter clot or failure End stage renal disease GERD (gastroesophageal reflux disease) Hypertension Peritoneal dialysis catheter in place Stroke TIA (transient ischemic attack) - Family History Family History: Family History (Last Reviewed 04/22/18 @ 13:02 by Nico Fisher MD) Other Family history unobtainable - Tobacco History Second Hand Smoke Exposure: No Smoking Status: Unknown if ever smoked - Alcohol History How Often Do You Have a Drink Containing Alcohol: Unable to Obtain - Substance Use History Substance History: Unable to Obtain - Travel History Recent Travel in the [place] Within the Last 8 Weeks: No Recent Travel Out of the Country Within the Last 8 Weeks: No - Immunization History Tetanus Immunization: Unsure Hx Influenza Vaccine This Season: No Medications and Allergies Active Medications: Active Medications Albuterol (Albuterol Neb (Prn)) 2.5 mg NEB Q2HR NEB PRN PRN Reason: DYSPNEA Last Admin: 04/19/18 07:38 Dose: 2.5 mg Artificial Tears (Tears Naturale Opth Drops) 1 drop EACH EYE Q8H [facility] Last Admin: 04/25/18 03:56 Dose: Not Given Aspirin (Aspirin Chew) 81 mg PO DAILY ON LICENSE OF [facility] Last Admin: 04/19/18 09:01 Dose: 81 mg Calcium Acetate (Phoslo) 1,334 mg NG/OG TID ON LICENSE OF [facility] Last Admin: 04/25/18 08:53 Dose: 1,334 mg Carvedilol (Coreg) 3.125 mg PO BID ON LICENSE OF [facility] Last Admin: 04/25/18 08:52 Dose: 3.125 mg Chlorhexidine Gluconate (Peridex 0.12% Oral Kit) 15 ml OROPHARYNG BID@0800, 2000 ON LICENSE OF [facility] Last Admin: 04/25/18 08:53 Dose: 15 ml Clonidine HCl (Catapres) 0.1 mg PO UNSCH PRN PRN Reason: SEE LABEL COMMENTS Dextrose (D50w Vial) 50 ml IV.PUSH UNSCH PRN PRN Reason: PER HYPOGLYCEMIA PROTOCOL Diltiazem HCl (Cardizem) 30 mg PO QID ON LICENSE OF [facility] Last Admin: 04/25/18 08:52 Dose: 30 mg Diphenhydramine HCl (Benadryl) 25 mg PO UNSCH PRN PRN Reason: SEE LABEL COMMENTS Epoetin Erickson (Epogen Inj) 14,000 unit IV.PUSH UNSCH PRN PRN Reason: SEE LABEL COMMENTS Last Admin: 04/24/18 11:30 Dose: 14,000 unit Fentanyl Citrate (Fentanyl Inj) 25 mcg IV.PUSH Q3H PRN PRN Reason: BREAKTHROUGH PAIN Last Admin: 04/23/18 13:37 Dose: 25 mcg Gabapentin (Neurontin) 200 mg PO Q24H ON LICENSE OF [facility] Last Admin: 04/24/18 22:02 Dose: 200 mg Gelatin (Gelfoam 12 Mm/7 Mm Topical) 1 foam TOPICAL PRN PRN PRN Reason: help stop bleeding from site Gentamicin Sulfate (Gentamicin Inj) 20 mg OTHER WITH DIALYSIS PRN PRN Reason: Dwell Gentamycin Lock Last Admin: 04/24/18 13:45 Dose: 20 mg Glucagon (Glucagon Inj) 1 mg OTHER PRN PRN PRN Reason: for Hypoglycemia Protocol Heparin Sodium (Porcine) (Heparin Inj) 8,000 units OTHER WITH DIALYSIS PRN PRN Reason: for machine prime Heparin Sodium (Porcine) (Heparin Inj) 1,000 units OTHER WITH DIALYSIS PRN PRN Reason: Dwell Heparin to Fill Catheter Last Admin: 04/24/18 13:56 Dose: 1,000 units Piperacillin/Tazobactam/Dextrose (Zosyn 2.25 Gm Premix) 50 mls @ 100 mls/hr IV.SIG Q6H ON LICENSE OF [facility] Last Admin: 04/25/18 08:53 Dose: 100 mls/hr Sodium Chloride (Ns Inj) 1,000 mls @ 0 mls/hr OTHER .Q0M PRN PRN Reason: for prime and rinse back Sodium Chloride (Ns Inj) 1,000 mls @ 200 mls/hr OTHER .Q5H PRN PRN Reason: for dialyzer flush PRN Sodium Chloride (Ns Inj) 1,000 mls @ 0 mls/hr IV.CONT .Q0M PRN PRN Reason: hypotension / volume replace Albumin Human (Flexbumin 25% Inj) 100 mls @ 60 mls/hr IV.SIG WITH DIALYSIS PRN PRN Reason: hypotension / volume replace Last Infusion: 04/21/18 09:29 Dose: Infused Insulin Aspart (Novolog Insulin Correctional Sugar Inj) 0 unit SQ Q6HR ON LICENSE OF [facility]; Protocol Last Admin: 04/25/18 06:08 Dose: 1 unit Lactobacillus Acidophilus (Lactinex) 1 tab PO BID ON LICENSE OF [facility] Last Admin: 04/25/18 08:53 Dose: 1 tab Loperamide HCl (Imodium) 2 mg PO UNSCH PRN PRN Reason: DIARRHEA Mannitol (Mannitol Inj) 12.5 gm IV.PUSH UNSCH PRN PRN Reason: hypotension / volume replace Midodrine (Proamatine) 10 mg PO TID@0700,1200,1700 ON LICENSE OF [facility] Last Admin: 04/25/18 08:52 Dose: 10 mg Miscellaneous Medication () 1 each OROPHARYNG 0000,0400,1200,1600 ON LICENSE OF [facility] Last Admin: 04/25/18 03:56 Dose: Not Given Mupirocin (Bactroban 2% Nasal Oint) 1 applicatio EACH NARE BID ON LICENSE OF [facility] Last Admin: 04/25/18 08:53 Dose: 1 applicatio Nitroglycerin (Nitrostat Sl) 0.4 mg SL Q5M PRN PRN Reason: CHEST PAIN Ondansetron HCl (Zofran Inj) 4 mg IV.PUSH UNSCH PRN PRN Reason: NAUSEA OR VOMITING Oxycodone HCl (Roxicodone) 2.5 mg PO Q6H PRN PRN Reason: PAIN SCALE 1 TO 5 Last Admin: 04/25/18 01:34 Dose: 2.5 mg Oxycodone HCl (Roxicodone) 5 mg PO Q6H PRN PRN Reason: PAIN SCALE 6 TO 10 Last Admin: 04/25/18 09:02 Dose: 5 mg Pantoprazole Sodium (Protonix) 40 mg PO DAILY ON LICENSE OF [facility] Last Admin: 04/25/18 08:52 Dose: 40 mg Quetiapine Fumarate (Seroquel) 25 mg PO BID@0900,1200 ON LICENSE OF [facility] Last Admin: 04/25/18 08:53 Dose: 25 mg Sodium Chloride (Ns Flush) 5 ml IV.FLUSH PRN PRN PRN Reason: flush each lumen during HD Last Admin: 04/21/18 21:30 Dose: 5 ml Vitamin B Complex/Vit C/Folic Acid (Nephrocaps) 1 tab PO DAILY ON LICENSE OF [facility] Last Admin: 04/25/18 08:52 Dose: 1 tab Allergies Allergy/AdvReac Type Severity Reaction Status Date / Time No Known Allergies Allergy Verified 01/22/18 10:23 Home Medications Medication Instructions Recorded Confirmed Type clonidine HCl 0.1 mg PO DAILY PRN 01/22/18 01/22/18 History furosemide 80 mg PO DAILY 01/22/18 01/22/18 History hydralazine 50 mg PO QID 01/22/18 01/22/18 History hydrocodone-acetaminophen [[place]] 1 tab PO Q4-6H PRN 01/22/18 01/22/18 History nifedipine 90 mg PO DAILY 01/22/18 01/22/18 History pantoprazole [Protonix] 40 mg PO DAILY 01/22/18 01/22/18 History Exam Vital signs: Vital Signs 04/24/18 12:00 04/24/18 12:31 04/24/18 12:46 Temperature 98.5 F Pulse Rate 65 76 Respiratory Rate 15 16 Blood Pressure 122/49 L 154/56 H 164/82 H Pulse Oximetry 100 96 04/24/18 13:00 04/24/18 13:01 04/24/18 13:15 Temperature Pulse Rate 70 71 70 Respiratory Rate 15 15 16 Blood Pressure 144/63 H 141/53 H Pulse Oximetry 97 97 97 04/24/18 13:30 04/24/18 13:45 12/18/18 14:00 Temperature Pulse Rate 79 82 75 Respiratory Rate 22 20 20 Blood Pressure 92/55 L 94/55 L 109/48 L Pulse Oximetry 96 95 93 L 04/24/18 14:15 04/24/18 14:30 04/24/18 14:45 Temperature Pulse Rate 76 88 82 Respiratory Rate 16 17 18 Blood Pressure 103/43 L 99/47 L 102/45 L Pulse Oximetry 94 L 93 L 94 L 04/24/18 15:00 04/24/18 15:15 04/24/18 15:17 Temperature Pulse Rate 80 83 81 Respiratory Rate 17 20 21 Blood Pressure 102/41 L 84/38 L 93/46 L Pulse Oximetry 93 L 94 L 94 L 04/24/18 15:30 04/24/18 16:00 04/24/18 16:31 Temperature 98.7 F Pulse Rate 82 86 93 H Respiratory Rate 19 19 22 Blood Pressure 102/45 L 200/91 H 242/112 H Pulse Oximetry 91 L 93 L 93 L 04/24/18 16:33 04/24/18 17:00 04/24/18 17:01 Temperature Pulse Rate 85 84 83 Respiratory Rate 17 16 18 Blood Pressure 209/149 H 140/53 L Pulse Oximetry 92 L 93 L 92 L 04/24/18 17:31 04/24/18 18:00 04/24/18 18:30 Temperature Pulse Rate 83 83 90 Respiratory Rate 17 18 23 Blood Pressure 147/52 H 140/57 L 141/80 H Pulse Oximetry 94 L 92 L 94 L 04/24/18 19:00 04/24/18 19:31 04/24/18 20:00 Temperature Pulse Rate 84 75 85 Respiratory Rate 17 17 17 Blood Pressure 120/51 L 112/46 L Pulse Oximetry 94 L 94 L 94 L 04/24/18 20:12 04/24/18 20:30 04/24/18 21:00 Temperature Pulse Rate 84 81 Respiratory Rate 16 17 Blood Pressure 106/77 111/61 Pulse Oximetry 93 L 93 L 96 04/24/18 22:00 04/24/18 22:12 04/24/18 23:00 Temperature Pulse Rate 83 87 87 Respiratory Rate 14 18 16 Blood Pressure 96/51 L 97/43 L Pulse Oximetry 97 98 96 04/25/18 00:00 04/25/18 00:01 04/25/18 01:00 Temperature Pulse Rate 87 88 86 Respiratory Rate 16 14 15 Blood Pressure 129/50 L 120/45 L Pulse Oximetry 95 95 95 04/25/18 02:00 04/25/18 02:01 04/25/18 03:00 Temperature Pulse Rate 88 88 85 Respiratory Rate 14 18 17 Blood Pressure 98/42 L 88/41 L Pulse Oximetry 95 94 L 95 04/25/18 03:13 04/25/18 03:38 04/25/18 04:00 Temperature Pulse Rate 87 92 H 91 H Respiratory Rate 16 18 15 Blood Pressure 88/46 L 96/51 L 87/48 L Pulse Oximetry 96 95 93 L 04/25/18 08:48 Temperature Pulse Rate Respiratory Rate Blood Pressure Pulse Oximetry 94 L Intake & Output 04/24/18 04/25/18 04/25/18 18:59 06:59 18:59 Intake Total 650 / 650 1909 Output Total 2500 / 2500 Balance -1850 / -1850 1909 Weight 70.7 kg Intake: IV 100 / 100 1610 / 1610 Zosyn 2.25 GM Premix 50 ML @ 100 / 100 100 / 100 100 mls/hr IV.SIG Q6H [facility] Rx#: [id number] Oral 550 / 550 300 / 300 Output: Urine 500 / 500 Hemodialysis Amount 1999 Other: # Incontinent Voids 1 Date of Last Bowel Movement 04/24/18 04/24/18 04/24/18 # Bowel Movements 3 # Incontinent Bowel Movements 2 1 Narrative: No tremors, no EPS, no catatonia, no withdrawal symptoms, - Constitutional no acute distress - Routine HEENT Exam Head: Present: normocephalic Eye: Present: EOMI ENT: Present: mucous membranes moist Mental Status Examination Appearance: Appropriate Consciousness: Alert Orientation: x4 Motor Activity: Normal gait Speech: Unremarkable Language: Adequate Fund of Knowledge: Adequate Attention and Concentration: Adequate Memory: Unremarkable Mood: Irritable Affect: Irritable Thought Process & Associations: Intact Thought Content: Appropriate Hallucination Type: None Delusion Type: None Suicidal Ideation: No Suicidal Plan: No Suicidal Intention: No Homicidal Ideation: No Homicidal Plan: No Homicidal Intention: No Insight: Adequate Judgment: Adequate Assessment and Plan - Assessment (1) Adjustment disorder with depressed mood Code(s): F43.21 - Adjustment disorder with depressed mood Status: Acute - Plan Plan: Patient is psychiatric indicated. She keeps her decision-making capacity. Justification for Continued Inpatient Stay: On my psychiatric evaluation today the patient is irritable, requesting to be discharged, initially refusing to speak with a psychiatrist stating that she does not have a psychiatric condition at the moment, but redirectable. The patient reports to be sad because she wants to go home and she was to continue with her life. Patient states that she is willing to continue her medical care as an outpatient, but at this point she does not feel that she gets any benefit of inpatient. The patient is fully oriented x3, no attention deficit, no fluctuation of consciousness present, patient is logical, coherent and relevant. Oriented x3. Future oriented. She denies suicidal and homicidal ideation, she denies visual and auditory hallucinations at the moment. No delirium present. Patient has been described as psychotic recently most probably due to delirium, I agree with continue 25 mg twice daily. But, at this moment patient seems to be at baseline. I do not see any reason to deprive the patient her decision making capacity at this moment. No psychiatric admission is indicated. The patient is psychiatrically cleared to continue medical treatment. Consult appreciated.
--- NOTE | 2018-04-25 14:19 | P.PNVS ---
Subjective Post Op Day #: 2 Subjective/Hospital Course: Left upper extremity pain resolved Objective Vital Signs / I&O: Vital Signs 04/24/18 14:30 04/24/18 14:45 04/24/18 15:00 Temperature Pulse Rate 88 82 80 Respiratory Rate 17 18 17 Blood Pressure 99/47 L 102/45 L 102/41 L Pulse Oximetry 93 L 94 L 93 L 04/24/18 15:15 04/24/18 15:17 04/24/18 15:30 Temperature Pulse Rate 83 81 82 Respiratory Rate 20 21 19 Blood Pressure 84/38 L 93/46 L 102/45 L Pulse Oximetry 94 L 94 L 91 L 04/24/18 16:00 04/24/18 16:31 04/24/18 16:33 Temperature 98.7 F Pulse Rate 86 93 H 85 Respiratory Rate 19 22 17 Blood Pressure 200/91 H 242/112 H 209/149 H Pulse Oximetry 93 L 93 L 92 L 04/24/18 17:00 04/24/18 17:01 04/24/18 17:31 Temperature Pulse Rate 84 83 83 Respiratory Rate 16 18 17 Blood Pressure 140/53 L 147/52 H Pulse Oximetry 93 L 92 L 94 L 04/24/18 18:00 04/24/18 18:30 04/24/18 19:00 Temperature Pulse Rate 83 90 84 Respiratory Rate 18 23 17 Blood Pressure 140/57 L 141/80 H Pulse Oximetry 92 L 94 L 94 L 04/24/18 19:31 04/24/18 20:00 04/24/18 20:12 Temperature Pulse Rate 75 85 Respiratory Rate 17 17 Blood Pressure 120/51 L 112/46 L Pulse Oximetry 94 L 94 L 93 L 04/24/18 20:30 04/24/18 21:00 04/24/18 22:00 Temperature Pulse Rate 84 81 83 Respiratory Rate 16 17 14 Blood Pressure 106/77 111/61 Pulse Oximetry 93 L 96 97 04/24/18 22:12 04/24/18 23:00 04/25/18 00:00 Temperature Pulse Rate 87 87 87 Respiratory Rate 18 16 16 Blood Pressure 96/51 L 97/43 L Pulse Oximetry 98 96 95 04/25/18 00:01 04/25/18 01:00 04/25/18 02:00 Temperature Pulse Rate 88 86 88 Respiratory Rate 14 15 14 Blood Pressure 129/50 L 120/45 L Pulse Oximetry 95 95 95 04/25/18 02:01 04/25/18 03:00 04/25/18 03:13 Temperature Pulse Rate 88 85 87 Respiratory Rate 18 17 16 Blood Pressure 98/42 L 88/41 L 88/46 L Pulse Oximetry 94 L 95 96 04/25/18 03:38 04/25/18 04:00 04/25/18 08:00 Temperature 98.6 F Pulse Rate 92 H 91 H 93 H Respiratory Rate 18 15 17 Blood Pressure 96/51 L 87/48 L 134/60 Pulse Oximetry 95 93 L 94 L 04/25/18 08:48 04/25/18 12:00 Temperature 98.6 F Pulse Rate 82 Respiratory Rate 14 Blood Pressure 101/49 L Pulse Oximetry 94 L 94 L Intake & Output 04/24/18 04/25/18 04/25/18 18:59 06:59 18:59 Intake Total 650 / 650 1909 50 / 50 Output Total 2500 / 2500 Balance -1850 / -1850 1909 50 / 50 Weight 70.7 kg Intake: IV 100 / 100 1610 / 1610 50 / 50 Zosyn 2.25 GM Premix 50 ML @ 100 / 100 100 / 100 50 / 50 100 mls/hr IV.SIG Q6H [facility] Rx#: [id number] Oral 550 / 550 300 / 300 Output: Urine 500 / 500 Hemodialysis Amount 1999 Other: # Incontinent Voids 1 Date of Last Bowel Movement 04/24/18 04/24/18 04/25/18 # Bowel Movements 3 # Incontinent Bowel Movements 2 1 Exam: Multiphasic left radial signal Left hand motor function improved Left upper extremity wounds clean dry intact Laboratory Results - last 24 hr 04/24/18 04/25/18 04/25/18 18:31 06:06 09:29 WBC 14.0 H RBC 2.67 L Hgb 8.7 L Hct 25.1 L MCV 94.0 MCH 32.4 MCHC 34.5 RDW 19.3 H Plt Count 295 D MPV 10.1 Neut % (Auto) 76.8 H Lymph % (Auto) 14.3 [place] % (Auto) 7.1 Eos % (Auto) 1.1 Baso % (Auto) 0.7 Neut # (Auto) 10.8 H Lymph # (Auto) 2.0 [place] # (Auto) 1.0 H Eos # (Auto) 0.2 Baso # (Auto) 0.1 WBC Differential . Differential Comment Auto diff final Sodium Potassium Chloride Carbon Dioxide Anion Gap BUN Creatinine Estimated GFR POC Glucose 179 H 179 H Random Glucose Calcium 04/25/18 04/25/18 09:29 12:36 WBC RBC Hgb Hct MCV MCH MCHC RDW Plt Count MPV Neut % (Auto) Lymph % (Auto) [place] % (Auto) Eos % (Auto) Baso % (Auto) Neut # (Auto) Lymph # (Auto) [place] # (Auto) Eos # (Auto) Baso # (Auto) WBC Differential Differential Comment Sodium 136 Potassium 3.0 L Chloride 97 L Carbon Dioxide 26.1 Anion Gap 13 BUN 46 H Creatinine 6.11 H Estimated GFR 7 L POC Glucose 270 H Random Glucose 169 H Calcium 7.8 L D Assessment and Plan - Assessment (1) Chronic kidney disease Code(s): N18.9 - Chronic kidney disease, unspecified Status: Acute - Plan LUE steal syndrome S/P AVF ligation postop day #2 Motor function improved Pain resolved Continue with local wound care Will schedule follow-up appointment vein mapping to create a new fistula Stable for discharge from vascular surgery standpoint Alexis Stuart MD [phone]
--- NOTE | 2018-04-25 18:50 | P.PNIM ---
Physical Exam Vital signs: Last Vital Signs Temp 98.2 F 04/25/18 16:00 Pulse 79 04/25/18 16:00 Resp 18 04/25/18 16:00 BP 94/45 L 04/25/18 16:00 Pulse Ox 96 04/25/18 16:00 Intake & Output 04/23/18 04/24/18 04/25/18 04/26/18 06:59 06:59 06:59 06:59 Intake Total 2420 / 2420 1690 / 1690 2560 / 2560 600 / 600 Output Total 2500 / 2500 150 / 150 Balance 2420 / 2420 1680 / 1680 60 / 60 450 / 450 Weight 68.9 kg 70.6 kg 70.7 kg Narrative: GENERAL: 72 yo female, well nourished, well developed patient, chronically ill appearing, less anxious today, more cooperative. NECK: Supple, trachea midline. No JVD or lymphadenopathy. CARDIOVASCULAR: Regular rate and rhythm without murmurs, gallops, or rubs. RESPIRATORY: Breath sounds equal bilaterally. No accessory muscle use. GASTROINTESTINAL: Abdomen soft, nondistended. EXTREMITIES: Mild edema. 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 -Encephalopathy seems to be metabolic secondary to severe sepsis -CT of the head shows old bilateral cerebellar strokes, and nothing acute. -As needed fentanyl 25 mcg every 3 hours as needed pain Psychosis/ poss ICU delirium , agitation and anxiety. start seroquel RESP: Acute hypoxemic respiratory failure, resolving -Intubated in the emergency department for lack of airway protection and hypoxia -Extubated 04/17 -nasal cannula maintain saturations greater than equal to 90%. Wean as tolerated -albuterol/ipratropium aerosols every 4 hours with albuterol aerosols every 2 hours as needed -Incentive spirometry while -Head of bed at 30 degrees -Chest x-ray -small left infiltrate versus small left pleural effusion CV: NSTEMI likely type II Paroxysmal atrial fibrillation with 2 1 AV conduction Hypotension Lactic acidosis History of hypertension -GI bleeding currently holding aspirin 81 mg daily -Cardiology Dr. Fermin consulted NSTEMI most likely type II from sepsis -Hold all home antihypertensives (hold nifedipine, clonidine, hydralazine and Lasix) -Cardiology recommended diltiazem 30 mg 4 times daily and carvedilol 3.125 mg twice daily -2d echocardiogram revealed normal left ventricular size. EF 65-70%. Left lipomatous atrial septum,. Trace MR/TR GI: Improved only downtrending elevated liver enzymes Admitting diagnosis of emphysematous cholecystitis/likely passed stone History of GERD -Diet Per GI. -Currently on pantoprazole drip at 8 mg an hour -Holding Nepro at 40 cc an hour goal. -Speech eval for swallow.-Failed 04/19 -CT abdomen pelvis shows small amount of air in the fundus of the gallbladder, this is concerning for emphysematous cholecystitis given clinical picture -Initially, stat consult to general surgery and discussed with Dr. Cortes. Recommended conservative therapy at the present time. -Dr. Cortes/general surgery and gastroenterology signed off MRCP -04/16 - cholelithiasis with multiple small gallstones layering dependently. There is no gallbladder wall thickening or inflammatory change. No gas is visualized on the MRI. Common bile duct measuring up to 1 cm with no filling defects or mass. This could represent distal obstruction or prior passage of stones. Multiple benign-appearing small cystic structures in the pancreas. Bilateral simple renal cysts as well as a more complex right parapelvic cyst. -Possible ERCP. LFTs very slowly trending downward -GI following still -With bright red blood per rectum we will nuclear medicine bleeding scan was negative-04/20. Repeat ordered by GI -GI for EGD with gastritis and colonoscopy -sigmoid/colonic diverticulosis. Bright red blood. Poor prep. Renal/: End-stage renal disease -Monitor renal function closely. -Dr. Gillette consulted for emergent hemodialysis on 04/14. Dialyzed 04/21 -Monitor urine output accurate I's and O's Noted hypotensive after HD on 04/24/18 . Started on midodrine per nephro However patient anxious BP in 200s , repeat improved. ID: Septic shock Admitting diagnosis of possible emphysematous cholecystitis/likely passed stone Possible UTI -Antibiotics with piperacillin/tazobactam. Discontinued vancomycin 04/16 -Infectious disease continues to follow and general surgery consulted. -Follow-up blood urine and sputum cultures no growth to date HEME: Normocytic anemia Leukocytosis -Monitor CBC, coags. Check coags now -Receiving 2 units PRBCs on 04/20. Recheck at 1500 and 2300 hrs. today ENDO/FEN: Hyperphosphatemia Hypokalemia Type 2 diabetes -Sliding scale insulin -We will start on calcium acetate at 1334 g 3 times daily MSK Cyanosis left upper extremity Followed by Dr. Wu. S/P AV fistula ligation by Dr. Stuart / PROPH: -Bilateral lower extremity SCDs. Heparin sq/omeprazole LINES: -Utilize peripheral IVs, left subclavian central line day #5 with left femoral arterial line day #3 both discontinued 12/ Discussed with the patient, ICU nurse Transfer to med surg floor PT recommends SNF rehab however the patient is refusing rehab and wants to go home. PT daily until patient is deem safe for DC by PT.
[2018-04-25] MEDS ORDERED: Albumin Human 25% Inj 100 ML IV.SIG ONE (21:00)
[2018-04-25] MEDS: Gabapentin 100 MG Capsule PO SCH (22:01)
[2018-04-26] MEDS: Piperacil/Tazo 2.25 GM Premix 50 ML IV.SIG SCH ×4 (02:07→20:32)
[2018-04-26] MEDS: Artificial Tears Opth Drops 15 ML Bottle EACH EYE SCH ×3 (02:07→19:09)
[2018-04-26] MEDS: Oral Hygiene Kit OROPHARYNG SCH ×3 (04:18→18:41)
[2018-04-26] MEDS: Insulin NovoLOG Aspart Correctional Sugar Inj SQ SCH ×3 (06:25→18:41)
[2018-04-26] MEDS: Chlorhexidine 0.12% Oral Kit 15 ML UDC OROPHARYNG SCH ×2 (08:40→19:56)
[2018-04-26] MEDS: dilTIAZem 30 MG Tablet PO SCH ×4 (08:41→21:11)
[2018-04-26] MEDS: Calcium Acetate 667 MG Capsule NG/OG SCH ×3 (08:41→18:16)
[2018-04-26] MEDS: Vitamin B Complex/Vit C/Folic Tablet PO SCH (08:42)
[2018-04-26] MEDS: Lactobacillus Acidophilus/L. Spores Tablet PO SCH ×2 (08:42→21:11)
[2018-04-26] MEDS: QUEtiapine 25 MG Tablet PO SCH ×2 (08:42→12:19)
[2018-04-26] MEDS: Mupirocin 2% Nasal Oint Topical Syringe EACH NARE SCH ×2 (08:45→21:11)
[2018-04-26] MEDS: Heparin 10,000 UNITS/10 ML Vial (for IV use) OTHER PRN (12:26)
[2018-04-26] MEDS: Albumin Human 25% Inj 100 ML IV.SIG PRN ×2 (12:26→13:52)
--- NOTE | 2018-04-26 14:47 | P.PNNP ---
Subjective Interval history: Patient was seen, crying with complaints of wanting to go home. Patient stated she does not want to go to rehab. Patient was seen during dialysis, 350 ml/min, UF goal of 1.5 L. Per nurse, patient will be possibly moved out of ICU today after dialysis. Blood pressure has improved. <Nehemiah Reyes - Last Filed: 04/26/18 14:42> Physical Exam Vital signs: Vital Signs 04/25/18 16:00 04/25/18 20:00 04/25/18 22:00 Temperature 98.2 F 98.4 F Pulse Rate 79 76 77 Respiratory Rate 18 14 20 Blood Pressure 94/45 L 74/40 L 124/58 L Pulse Oximetry 96 94 L 95 04/25/18 22:31 04/25/18 23:00 04/25/18 23:30 Temperature Pulse Rate 74 79 79 Respiratory Rate 16 17 16 Blood Pressure 124/53 L 129/55 L 119/51 L Pulse Oximetry 92 L 95 94 L 04/26/18 00:00 04/26/18 00:30 04/26/18 01:00 Temperature 98.1 F Pulse Rate 79 77 73 Respiratory Rate 17 Blood Pressure 119/49 L 131/58 L Pulse Oximetry 92 L 93 L 94 L 04/26/18 01:02 04/26/18 01:30 04/26/18 02:00 Temperature Pulse Rate 76 74 72 Respiratory Rate Blood Pressure 113/48 L 120/50 L 132/54 L Pulse Oximetry 95 94 L 95 04/26/18 02:30 04/26/18 03:00 04/26/18 03:30 Temperature Pulse Rate 73 72 73 Respiratory Rate Blood Pressure 122/47 L 112/46 L 120/51 L Pulse Oximetry 95 95 93 L 04/26/18 04:00 04/26/18 04:30 04/26/18 05:00 Temperature 98.4 F Pulse Rate 73 74 75 Respiratory Rate 18 Blood Pressure 125/57 L 122/52 L 133/50 L Pulse Oximetry 94 L 95 94 L 04/26/18 05:30 04/26/18 06:00 04/26/18 06:30 Temperature Pulse Rate 73 79 83 Respiratory Rate 40 H Blood Pressure 123/47 L 136/58 L 135/60 Pulse Oximetry 100 99 100 04/26/18 07:00 04/26/18 07:30 04/26/18 08:00 Temperature Pulse Rate 80 78 85 Respiratory Rate Blood Pressure 132/51 L 136/52 L 131/87 Pulse Oximetry 99 96 95 04/26/18 08:30 04/26/18 09:00 04/26/18 10:00 Temperature Pulse Rate 89 87 78 Respiratory Rate 16 14 14 Blood Pressure 128/56 L 126/68 Pulse Oximetry 96 94 L 93 L 04/26/18 10:01 04/26/18 10:30 04/26/18 11:00 Temperature Pulse Rate 76 78 84 Respiratory Rate 15 16 17 Blood Pressure 105/43 L 111/69 Pulse Oximetry 93 L 93 L 93 L 04/26/18 11:01 04/26/18 11:51 04/26/18 11:52 Temperature Pulse Rate 87 86 87 Respiratory Rate 17 17 18 Blood Pressure 125/81 96/38 L 146/56 H Pulse Oximetry 93 L 94 L 94 L 04/26/18 12:00 04/26/18 12:01 04/26/18 12:16 Temperature Pulse Rate 84 83 80 Respiratory Rate 14 17 15 Blood Pressure 161/60 H 84/45 L Pulse Oximetry 93 L 92 L 93 L 04/26/18 12:31 04/26/18 12:45 04/26/18 13:00 Temperature Pulse Rate 75 76 74 Respiratory Rate 14 12 12 Blood Pressure 93/43 L 91/44 L 88/41 L Pulse Oximetry 94 L 94 L 94 L 04/26/18 13:15 Temperature Pulse Rate 72 Respiratory Rate 13 Blood Pressure 88/42 L Pulse Oximetry 94 L Intake & Output 04/25/18 04/26/18 04/26/18 18:59 06:59 18:59 Intake Total 600 / 600 500 / 500 150 / 150 Output Total 150 / 150 100 / 100 Balance 450 / 450 400 / 400 150 / 150 Weight 71.7 kg Intake: IV 100 / 100 200 / 200 150 / 150 Flexbumin 25% Inj 100 ML @ 60 100 / 100 100 / 100 mls/hr IV.SIG WITH DIALYSIS PRN Rx#:[id number] Zosyn 2.25 GM Premix 50 ML @ 100 / 100 100 / 100 50 / 50 100 mls/hr IV.SIG Q6H CIRILO Rx#: [id number] Oral 500 / 500 300 / 300 Output: Urine 150 / 150 100 / 100 Other: # Voids 2 1 # Incontinent Voids 1 Date of Last Bowel Movement 04/25/18 04/25/18 04/25/18 # Incontinent Bowel Movements 1 1 Narrative: GENERAL: Mild distress. NECK: Supple, trachea midline. No JVD or lymphadenopathy. CARDIOVASCULAR: Regular rate and rhythm. RESPIRATORY: Breath sounds equal bilaterally. No accessory muscle use. GASTROINTESTINAL: Abdomen soft, nondistended. EXTREMITIES: Mild edema. L arm AVF. - Urinary Catheter Management Indwelling Urethral Catheter Cath placed during this visit: yes, but has since been removed by the nurse Reason for continuing: Hourly intake/output Insertion date: 04/14/18 Insertion time: 10:35 Removal date: 04/14/18 Removal time: 17:30 <Nehemiah Reyes - Last Filed: 04/26/18 14:42> Vital signs: Vital Signs 04/25/18 22:31 04/25/18 23:00 04/25/18 23:30 Temperature Pulse Rate 74 79 79 Respiratory Rate 16 17 16 Blood Pressure 124/53 L 129/55 L 119/51 L Pulse Oximetry 92 L 95 94 L 04/26/18 00:00 04/26/18 00:30 04/26/18 01:00 Temperature 98.1 F Pulse Rate 79 77 73 Respiratory Rate 17 Blood Pressure 119/49 L 131/58 L Pulse Oximetry 92 L 93 L 94 L 04/26/18 01:02 04/26/18 01:30 04/26/18 02:00 Temperature Pulse Rate 76 74 72 Respiratory Rate Blood Pressure 113/48 L 120/50 L 132/54 L Pulse Oximetry 95 94 L 95 04/26/18 02:30 04/26/18 03:00 04/26/18 03:30 Temperature Pulse Rate 73 72 73 Respiratory Rate Blood Pressure 122/47 L 112/46 L 120/51 L Pulse Oximetry 95 95 93 L 04/26/18 04:00 04/26/18 04:30 04/26/18 05:00 Temperature 98.4 F Pulse Rate 73 74 75 Respiratory Rate 18 Blood Pressure 125/57 L 122/52 L 133/50 L Pulse Oximetry 94 L 95 94 L 04/26/18 05:30 04/26/18 06:00 04/26/18 06:30 Temperature Pulse Rate 73 79 83 Respiratory Rate 40 H Blood Pressure 123/47 L 136/58 L 135/60 Pulse Oximetry 100 99 100 04/26/18 07:00 04/26/18 07:30 04/26/18 08:00 Temperature Pulse Rate 80 78 85 Respiratory Rate Blood Pressure 132/51 L 136/52 L 131/87 Pulse Oximetry 99 96 95 04/26/18 08:30 04/26/18 09:00 04/26/18 10:00 Temperature Pulse Rate 89 87 78 Respiratory Rate 16 14 14 Blood Pressure 128/56 L 126/68 Pulse Oximetry 96 94 L 93 L 04/26/18 10:01 04/26/18 10:30 04/26/18 11:00 Temperature Pulse Rate 76 78 84 Respiratory Rate 15 16 17 Blood Pressure 105/43 L 111/69 Pulse Oximetry 93 L 93 L 93 L 04/26/18 11:01 04/26/18 11:51 04/26/18 11:52 Temperature Pulse Rate 87 86 87 Respiratory Rate 17 17 18 Blood Pressure 125/81 96/38 L 146/56 H Pulse Oximetry 93 L 94 L 94 L 04/26/18 12:00 04/26/18 12:01 04/26/18 12:16 Temperature Pulse Rate 84 83 80 Respiratory Rate 14 17 15 Blood Pressure 161/60 H 84/45 L Pulse Oximetry 93 L 92 L 93 L 04/26/18 12:31 04/26/18 12:45 04/26/18 13:00 Temperature Pulse Rate 75 76 74 Respiratory Rate 14 12 12 Blood Pressure 93/43 L 91/44 L 88/41 L Pulse Oximetry 94 L 94 L 94 L 04/26/18 13:15 04/26/18 13:30 04/26/18 13:32 Temperature Pulse Rate 72 78 77 Respiratory Rate 13 15 13 Blood Pressure 88/42 L 72/35 L 77/35 L Pulse Oximetry 94 L 94 L 94 L 04/26/18 13:45 04/26/18 14:00 04/26/18 14:15 Temperature Pulse Rate 79 84 86 Respiratory Rate 24 22 10 L Blood Pressure 87/35 L 111/47 L 108/49 L Pulse Oximetry 97 96 94 L 04/26/18 14:30 04/26/18 14:45 04/26/18 15:00 Temperature Pulse Rate 82 83 84 Respiratory Rate 13 20 18 Blood Pressure 104/44 L 92/42 L 92/36 L Pulse Oximetry 94 L 95 96 04/26/18 15:02 04/26/18 15:15 04/26/18 15:30 Temperature Pulse Rate 83 86 90 Respiratory Rate 18 17 19 Blood Pressure 102/45 L 92/51 L 89/41 L Pulse Oximetry 93 L 94 L 94 L 04/26/18 15:45 04/26/18 16:00 04/26/18 16:15 Temperature Pulse Rate 84 88 86 Respiratory Rate 15 16 18 Blood Pressure 87/39 L 84/35 L 99/35 L Pulse Oximetry 92 L 96 96 04/26/18 16:30 04/26/18 16:45 04/26/18 17:00 Temperature Pulse Rate 83 82 82 Respiratory Rate 18 16 15 Blood Pressure 94/40 L 90/41 L 84/39 L Pulse Oximetry 92 L 94 L 93 L 04/26/18 17:15 04/26/18 17:31 04/26/18 17:45 Temperature Pulse Rate 86 88 87 Respiratory Rate 17 17 16 Blood Pressure 78/38 L 128/45 L 115/44 L Pulse Oximetry 95 95 95 04/26/18 18:00 04/26/18 18:15 04/26/18 18:30 Temperature Pulse Rate 89 85 86 Respiratory Rate 26 H 17 18 Blood Pressure 81/44 L 89/42 L 82/49 L Pulse Oximetry 97 96 04/26/18 18:45 04/26/18 19:00 04/26/18 19:15 Temperature Pulse Rate 91 H 88 87 Respiratory Rate 17 16 19 Blood Pressure 94/48 L 100/48 L 101/45 L Pulse Oximetry 84 L 04/26/18 19:30 04/26/18 19:35 04/26/18 19:46 Temperature 98.2 F 98.2 F Pulse Rate 90 90 91 H Respiratory Rate 19 14 17 Blood Pressure 99/48 L 99/48 L 154/70 H Pulse Oximetry 96 96 04/26/18 19:48 04/26/18 20:00 04/26/18 20:16 Temperature 98.2 F Pulse Rate 95 H 89 88 Respiratory Rate 20 17 17 Blood Pressure 154/70 H 162/58 H 141/56 H Pulse Oximetry 96 95 96 04/26/18 20:17 04/26/18 21:46 04/26/18 22:20 Temperature 98.5 F 97.3 F L Pulse Rate 82 75 Respiratory Rate 18 20 Blood Pressure 118/51 L 116/58 L Pulse Oximetry 95 95 93 L Intake & Output 04/26/18 04/26/18 04/27/18 06:59 18:59 06:59 Intake Total 500 / 500 300 / 300 450 / 450 Output Total 100 / 100 1600 / 1600 Balance 400 / 400 -1300 / -1300 450 / 450 Weight 71.7 kg Intake: IV 200 / 200 300 / 300 Flexbumin 25% Inj 100 ML @ 60 100 / 100 200 / 200 mls/hr IV.SIG WITH DIALYSIS PRN Rx#:[id number] Zosyn 2.25 GM Premix 50 ML @ 100 / 100 100 / 100 100 mls/hr IV.SIG Q6H CIRILO Rx#: [id number] Oral 300 / 300 Other 50 / 50 Rbc As-3 Leukoreduced Unit 50 / 50 [id number] Intake (Blood Product) Amt 400 / 400 Rbc As-3 Leukoreduced Unit 400 / 400 [id number] Rbc As-3 Leukoreduced Unit 0 / 0 [id number] Output: Urine 100 / 100 600 / 600 Hemodialysis Amount 1000 / 1000 Other: # Voids 1 Date of Last Bowel Movement 04/25/18 04/25/18 04/25/18 # Bowel Movements 2 # Incontinent Bowel Movements 1 - Urinary Catheter Management Indwelling Urethral Catheter Cath placed during this visit: no <Blake Michel - Last Filed: 04/26/18 22:27> Assessment and Plan - Assessment (1) ESRD (end stage renal disease) Code(s): N18.6 - End stage renal disease Status: Chronic Plan: Patient gets dialysis TTS. Patient was seen during dialysis, 350 ml/min, UF goal of 1.5 L. L arm AVF, avoid blood pressure or blood draws in left arm. s/p AVF ligation. Monitor fluid and electrolytes. Monitor phosphorus intermittently. Patient to receive dialysis at [facility] upon discharge. (2) Hyperkalemia Code(s): E87.5 - Hyperkalemia Status: Acute Plan: Patient now hypokalemic, should resolve after dialysis. Monitor. (3) Acute metabolic encephalopathy Code(s): G93.41 - Metabolic encephalopathy Status: Acute (4) Acute hypoxemic respiratory failure Code(s): J96.01 - Acute respiratory failure with hypoxia Status: Acute Plan: s/p extubation. . (5) Septic shock Code(s): A41.9 - Sepsis, unspecified organism; R65.21 - Severe sepsis with septic shock Status: Resolved Plan: On broad-spectrum antibiotic. ID on the case. <Nehemiah Reyes - Last Filed: 04/26/18 14:42> - Assessment (1) ESRD (end stage renal disease) Code(s): N18.6 - End stage renal disease Status: Chronic (2) Hyperkalemia Code(s): E87.5 - Hyperkalemia Status: Acute (3) Acute metabolic encephalopathy Code(s): G93.41 - Metabolic encephalopathy Status: Acute (4) Acute hypoxemic respiratory failure Code(s): J96.01 - Acute respiratory failure with hypoxia Status: Acute (5) Septic shock Code(s): A41.9 - Sepsis, unspecified organism; R65.21 - Severe sepsis with septic shock Status: Resolved - Attending Attestation patient was seen and examined. Agree with above assessment and plan. <Blake Michel - Last Filed: 04/26/18 22:27>
--- NOTE | 2018-04-26 15:28 | P.PNIM ---
Subjective Interval history: Had HD today No fever or chills Still very weak and can't get out of bed without assistance. Patioent with low BP Patient insisting to go home. Discussed with the patient at length. Patient is cursing , using foul language Labs after dialysis noted with low HGB will transfuse Patient is not safe for DC. Not able to get out of bed without 2 help assist Physical Exam Vital signs: Last Vital Signs Temp 98.4 F 04/26/18 04:00 Pulse 72 04/26/18 13:15 Resp 13 04/26/18 13:15 BP 88/42 L 04/26/18 13:15 Pulse Ox 94 L 04/26/18 13:15 Intake & Output 04/24/18 04/25/18 04/26/18 04/27/18 06:59 06:59 06:59 06:59 Intake Total 1690 / 1690 2560 / 2560 1100 / 1100 250 / 250 Output Total 10 / 10 2500 / 2500 250 / 250 1000 / 1000 Balance 1680 / 1680 60 / 60 850 / 850 -750 / -750 Weight 70.6 kg 70.7 kg 71.7 kg Narrative: GENERAL: 72 yo female, well nourished, well developed patient, chronically ill appearing some distress. SKIN: pale CARDIOVASCULAR: Regular rate and rhythm without murmurs, gallops, or rubs. RESPIRATORY: Breath sounds decreased. No accessory muscle use. GASTROINTESTINAL: Abdomen soft, nondistended. EXTREMITIES: Mild edema. Left arm AVF. 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 -Encephalopathy seems to be metabolic secondary to severe sepsis -CT of the head shows old bilateral cerebellar strokes, and nothing acute. -As needed fentanyl 25 mcg every 3 hours as needed pain Psychosis/ poss ICU delirium , agitation and anxiety. start seroquel RESP: Acute hypoxemic respiratory failure, resolving -Intubated in the emergency department for lack of airway protection and hypoxia -Extubated 04/17 -nasal cannula maintain saturations greater than equal to 90%. Wean as tolerated -albuterol/ipratropium aerosols every 4 hours with albuterol aerosols every 2 hours as needed -Incentive spirometry while -Head of bed at 30 degrees -Chest x-ray -small left infiltrate versus small left pleural effusion CV: NSTEMI likely type II Paroxysmal atrial fibrillation with 2 1 AV conduction Hypotension Lactic acidosis History of hypertension -GI bleeding currently holding aspirin 81 mg daily -Cardiology Dr. Fermin consulted NSTEMI most likely type II from sepsis -Hold all home antihypertensives (hold nifedipine, clonidine, hydralazine and Lasix) -Cardiology recommended diltiazem 30 mg 4 times daily and carvedilol 3.125 mg twice daily -2d echocardiogram revealed normal left ventricular size. EF 65-70%. Left lipomatous atrial septum,. Trace MR/TR GI: Improved only downtrending elevated liver enzymes Admitting diagnosis of emphysematous cholecystitis/likely passed stone History of GERD -Diet Per GI. -Currently on pantoprazole drip at 8 mg an hour -Holding Nepro at 40 cc an hour goal. -Speech eval for swallow.-Failed 04/19 -CT abdomen pelvis shows small amount of air in the fundus of the gallbladder, this is concerning for emphysematous cholecystitis given clinical picture -Initially, stat consult to general surgery and discussed with Dr. Cortes. Recommended conservative therapy at the present time. -Dr. Cortes/general surgery and gastroenterology signed off MRCP -04/16 - cholelithiasis with multiple small gallstones layering dependently. There is no gallbladder wall thickening or inflammatory change. No gas is visualized on the MRI. Common bile duct measuring up to 1 cm with no filling defects or mass. This could represent distal obstruction or prior passage of stones. Multiple benign-appearing small cystic structures in the pancreas. Bilateral simple renal cysts as well as a more complex right parapelvic cyst. -Possible ERCP. LFTs very slowly trending downward -GI following still -With bright red blood per rectum we will nuclear medicine bleeding scan was negative-04/20. Repeat ordered by GI -GI for EGD with gastritis and colonoscopy -sigmoid/colonic diverticulosis. Bright red blood. Poor prep. Renal/: End-stage renal disease -Monitor renal function closely. -Dr. Gillette consulted for emergent hemodialysis on 04/14. Dialyzed 04/21 -Monitor urine output accurate I's and O's Noted hypotensive after HD on 04/24/18 . Started on midodrine per nephro However patient anxious BP in 200s , repeat improved. ID: Septic shock Admitting diagnosis of possible emphysematous cholecystitis/likely passed stone Possible UTI -Antibiotics with piperacillin/tazobactam. Discontinued vancomycin 04/16 -Infectious disease continues to follow and general surgery consulted. -Follow-up blood urine and sputum cultures no growth to date HEME: Normocytic anemia Leukocytosis -Monitor CBC, coags. Check coags now -Receiving 2 units PRBCs on 04/20. Recheck at 1500 and 2300 hrs. today - HGB droped to 6.8 on 04/27/18 transfuse 2 U PRBCs . GI consulted ENDO/FEN: Hyperphosphatemia Hypokalemia Type 2 diabetes -Sliding scale insulin -We will start on calcium acetate at 1334 g 3 times daily MSK Cyanosis left upper extremity Followed by Dr. Wu. S/P AV fistula ligation by Dr. Stuart 04/23 PROPH: -Bilateral lower extremity SCDs. Heparin sq/omeprazole LINES: -Utilize peripheral IVs, left subclavian central line day #5 with left femoral arterial line day #3 both discontinued 04/18 Discussed with the patient, ICU nurse Transfer to med surg floor Seen by psych who deemed patient to be able to make decisions including leaving AMA ... PT recommends SNF rehab however the patient is refusing rehab and wants to go home. PT daily until patient is deem safe for DC by PT. Also 04/26/18 noted with low HGB at 6.8 , will transfuse 2 U , reconsult GI for eval Progress Note: Quality VTE Deep Vein Thrombosis/Pulmonary Embolism Present on Admission: No
[2018-04-26 16:46] LABS: Baso # (Auto) 0.1 th/mm3 (0.0-0.2); Baso % (Auto) 0.5 % (0.0-2.0); Eos # (Auto) 0.2 th/mm3 (0.0-0.4); Eos % (Auto) 2.4 % (0.0-4.0); Lymph # (Auto) 1.6 th/mm3 (1.0-4.8); Lymph % (Auto) 15.7 % (9.0-44.0); Mean Corpuscular HGB Conc 34.5 % (32.0-36.0); Mean Corpuscular Hemoglobin 32.3 pg (27.0-34.0); Mean Corpuscular Volume 93.6 fL (80.0-100.0); Mean Platelet Volume 9.8 fL (7.0-11.0); Mono # (Auto) 0.9 th/mm3 (0.0-0.9); Mono % (Auto) 8.4 % (0.0-8.0); Neut # (Auto) 7.5 th/mm3 (1.8-7.7); Platelet Count 260 th/mm3 (150-450); Red Blood Count 2.11 mil/mm3 (4.00-5.30); Red Cell Distribution Width 19.3 % (11.6-17.2); White Blood Count 10.3 th/mm3 (4.0-11.0)
--- NOTE | 2018-04-26 16:49 | P.DIET ---
Nutritional Evaluation Type of nutrition evaluation: follow-up Nutrition consult regarding: Diet Evaluation Screening comments: NPO Alert. Pt was admitted on 04/14 with dx of sepsis and has been npo since admission. Currently intubated with og-t to LIWS. Please consult RD if nutrition support is needed. 04/19 TF review Objective - Diagnosis sepsis unk source, non STEMI - Objective % IBW: 101 (IBW = 140lb) Body Weight Used for Calculations: Actual (64kg) Energy Needs - Lower Range (kCal/kg): 28 Energy Needs - Upper Range (kCal/kg): 32 Lower Limit kCal/kg (kCals): 1,792 Upper Limit kCal/kg (kCals): 2,048 Lower Limit Protein Factor (Grams per Kg): 1.2 Upper Limit Protein Factor (Grams per Kg): 1.4 Lower Protein Needs (Protein): 77 Upper Protein Needs (Protein): 90 Dietitian Reviewed in Medical Record: Curent medications, Intake & Output, Labs , Medical history, Tube feeding Diet Order: TF'ing Objective Comments: PMH: DM, ERSD, GERD, MRSA, HTN, stroke, TIA Meds: novolin insulin, zofran, zosyn Labs: BUN 46, Cr 6.11, GFR 7, POC glucose 203 128 245, Ca+ 7.8 Assessment Assessment: Pt was extubated on 04/18, received HD today. Pt currently consuming a regular soft, bland diet, eating around 50-75% of most meals given. RD will continue to assess pts nutritional needs for a PO supplement. Continue to monitor PO tolerance and intake. Monitor glucose and renal labs. Labs reviewed, dietitian following. Recommendations: 1. Continue regular, soft, bland diet per MD 2. RD will continue to assess pts nutritional needs for a PO supplement 3. Continue to monitor PO tolerance and intake 4. Monitor glucose and renal labs 5. Dietitian following Dietitian to Monitor: Lab values, Renal labs, Glucose level, Intake & Output, Diet tolerance, PO Intake, Medical course
[2018-04-26 16:50] LABS: Hematocrit 19.7 % (35.0-46.0); Hemoglobin 6.8 gm/dL (11.6-15.3)
[2018-04-26] MEDS ORDERED: Acetaminophen 325 MG Tablet PO PRN (17:02)
[2018-04-26 17:15] LABS: Platelet Estimate Normal (Normal); Platelet Morphology Normal (Normal)
[2018-04-26 17:18] LABS: Calcium 8.2 mg/dL (8.5-10.1); Carbon Dioxide 31.7 meq/L (21.0-32.0); Potassium 3.1 meq/L (3.5-5.1)
[2018-04-26] MEDS ORDERED: Sodium Chlor 0.9% Inj 250 ML IV.SIG SCH (18:00)
--- NOTE | 2018-04-26 19:15 | P.PNGI ---
Subjective Interval history: Patient semi-recumbent in bed GI reconsulted due to drop in hemoglobin No active bleeding noted Post hemodialysis <Kim Hannah - Last Filed: 04/26/18 19:17> Physical Exam Vital signs: Vital Signs 04/25/18 20:00 04/25/18 22:00 04/25/18 22:31 Temperature 98.4 F Pulse Rate 76 77 74 Respiratory Rate 14 20 16 Blood Pressure 74/40 L 124/58 L 124/53 L Pulse Oximetry 94 L 95 92 L 04/25/18 23:00 04/25/18 23:30 04/26/18 00:00 Temperature 98.1 F Pulse Rate 79 79 79 Respiratory Rate 17 16 17 Blood Pressure 129/55 L 119/51 L 119/49 L Pulse Oximetry 95 94 L 92 L 04/26/18 00:30 04/26/18 01:00 04/26/18 01:02 Temperature Pulse Rate 77 73 76 Respiratory Rate Blood Pressure 131/58 L 113/48 L Pulse Oximetry 93 L 94 L 95 04/26/18 01:30 04/26/18 02:00 04/26/18 02:30 Temperature Pulse Rate 74 72 73 Respiratory Rate Blood Pressure 120/50 L 132/54 L 122/47 L Pulse Oximetry 94 L 95 95 04/26/18 03:00 04/26/18 03:30 04/26/18 04:00 Temperature 98.4 F Pulse Rate 72 73 73 Respiratory Rate 18 Blood Pressure 112/46 L 120/51 L 125/57 L Pulse Oximetry 95 93 L 94 L 04/26/18 04:30 04/26/18 05:00 04/26/18 05:30 Temperature Pulse Rate 74 75 73 Respiratory Rate Blood Pressure 122/52 L 133/50 L 123/47 L Pulse Oximetry 95 94 L 100 04/26/18 06:00 04/26/18 06:30 04/26/18 07:00 Temperature Pulse Rate 79 83 80 Respiratory Rate 40 H Blood Pressure 136/58 L 135/60 132/51 L Pulse Oximetry 99 100 99 04/26/18 07:30 04/26/18 08:00 04/26/18 08:30 Temperature Pulse Rate 78 85 89 Respiratory Rate 16 Blood Pressure 136/52 L 131/87 128/56 L Pulse Oximetry 96 95 96 04/26/18 09:00 04/26/18 10:00 04/26/18 10:01 Temperature Pulse Rate 87 78 76 Respiratory Rate 14 14 15 Blood Pressure 126/68 105/43 L Pulse Oximetry 94 L 93 L 93 L 04/26/18 10:30 04/26/18 11:00 04/26/18 11:01 Temperature Pulse Rate 78 84 87 Respiratory Rate 16 17 17 Blood Pressure 111/69 125/81 Pulse Oximetry 93 L 93 L 93 L 04/26/18 11:51 04/26/18 11:52 04/26/18 12:00 Temperature Pulse Rate 86 87 84 Respiratory Rate 17 18 14 Blood Pressure 96/38 L 146/56 H Pulse Oximetry 94 L 94 L 93 L 04/26/18 12:01 04/26/18 12:16 04/26/18 12:31 Temperature Pulse Rate 83 80 75 Respiratory Rate 17 15 14 Blood Pressure 161/60 H 84/45 L 93/43 L Pulse Oximetry 92 L 93 L 94 L 04/26/18 12:45 04/26/18 13:00 04/26/18 13:15 Temperature Pulse Rate 76 74 72 Respiratory Rate 12 12 13 Blood Pressure 91/44 L 88/41 L 88/42 L Pulse Oximetry 94 L 94 L 94 L 04/26/18 13:30 04/26/18 13:32 04/26/18 13:45 Temperature Pulse Rate 78 77 79 Respiratory Rate 15 13 24 Blood Pressure 72/35 L 77/35 L 87/35 L Pulse Oximetry 94 L 94 L 97 04/26/18 14:00 04/26/18 14:15 04/26/18 14:30 Temperature Pulse Rate 84 86 82 Respiratory Rate 22 10 L 13 Blood Pressure 111/47 L 108/49 L 104/44 L Pulse Oximetry 96 94 L 94 L 04/26/18 14:45 04/26/18 15:00 04/26/18 15:02 Temperature Pulse Rate 83 84 83 Respiratory Rate 20 18 18 Blood Pressure 92/42 L 92/36 L 102/45 L Pulse Oximetry 95 96 93 L 04/26/18 15:15 04/26/18 15:30 04/26/18 15:45 Temperature Pulse Rate 86 90 84 Respiratory Rate 17 19 15 Blood Pressure 92/51 L 89/41 L 87/39 L Pulse Oximetry 94 L 94 L 92 L 04/26/18 16:00 12/20/18 16:15 04/26/18 16:30 Temperature Pulse Rate 88 86 83 Respiratory Rate 16 18 18 Blood Pressure 84/35 L 99/35 L 94/40 L Pulse Oximetry 96 96 92 L 04/26/18 16:45 Temperature Pulse Rate 82 Respiratory Rate 16 Blood Pressure 90/41 L Pulse Oximetry 94 L Intake & Output 04/26/18 04/26/18 04/27/18 06:59 18:59 06:59 Intake Total 500 / 500 300 / 300 Output Total 100 / 100 1600 / 1600 Balance 400 / 400 -1300 / -1300 Weight 71.7 kg Intake: IV 200 / 200 300 / 300 Flexbumin 25% Inj 100 ML @ 60 100 / 100 200 / 200 mls/hr IV.SIG WITH DIALYSIS PRN Rx#:[id number] Zosyn 2.25 GM Premix 50 ML @ 100 / 100 100 / 100 100 mls/hr IV.SIG Q6H CIRILO Rx#: [id number] Oral 300 / 300 Output: Urine 100 / 100 600 / 600 Hemodialysis Amount 1000 / 1000 Other: # Voids 1 Date of Last Bowel Movement 04/25/18 04/25/18 # Bowel Movements 2 # Incontinent Bowel Movements 1 - Constitutional no acute distress, chronically ill appearing - Routine HEENT Exam Head: Present: normocephalic - Routine Respiratory Exam Present: CTA bilaterally. Absent: accessory muscle use - Routine Cardiovascular Exam Present: RRR, S1, S2 - Routine Abdominal Exam Present: soft, normoactive bowel sounds. Absent: tenderness, distended, guarding, firm - Routine Extremities Exam Present: pulses intact. Absent: edema - Routine Skin Exam Present: dry, pallor, warm - Routine Neurological Exam Present: alert - Urinary Catheter Management Indwelling Urethral Catheter Cath placed during this visit: yes, but has since been removed by the nurse Reason for continuing: Hourly intake/output Insertion date: 04/14/18 Insertion time: 10:35 Removal date: 04/14/18 Removal time: 17:30 <Kim Hannah - Last Filed: 04/26/18 19:17> Vital signs: Vital Signs 04/26/18 09:00 04/26/18 10:00 04/26/18 10:01 Temperature Pulse Rate 87 78 76 Respiratory Rate 14 14 15 Blood Pressure 126/68 105/43 L Pulse Oximetry 94 L 93 L 93 L 04/26/18 10:30 04/26/18 11:00 04/26/18 11:01 Temperature Pulse Rate 78 84 87 Respiratory Rate 16 17 17 Blood Pressure 111/69 125/81 Pulse Oximetry 93 L 93 L 93 L 04/26/18 11:51 04/26/18 11:52 04/26/18 12:00 Temperature Pulse Rate 86 87 84 Respiratory Rate 17 18 14 Blood Pressure 96/38 L 146/56 H Pulse Oximetry 94 L 94 L 93 L 04/26/18 12:01 04/26/18 12:16 04/26/18 12:31 Temperature Pulse Rate 83 80 75 Respiratory Rate 17 15 14 Blood Pressure 161/60 H 84/45 L 93/43 L Pulse Oximetry 92 L 93 L 94 L 04/26/18 12:45 04/26/18 13:00 04/26/18 13:15 Temperature Pulse Rate 76 74 72 Respiratory Rate 12 12 13 Blood Pressure 91/44 L 88/41 L 88/42 L Pulse Oximetry 94 L 94 L 94 L 04/26/18 13:30 04/26/18 13:32 04/26/18 13:45 Temperature Pulse Rate 78 77 79 Respiratory Rate 15 13 24 Blood Pressure 72/35 L 77/35 L 87/35 L Pulse Oximetry 94 L 94 L 97 04/26/18 14:00 04/26/18 14:15 04/26/18 14:30 Temperature Pulse Rate 84 86 82 Respiratory Rate 22 10 L 13 Blood Pressure 111/47 L 108/49 L 104/44 L Pulse Oximetry 96 94 L 94 L 04/26/18 14:45 04/26/18 15:00 04/26/18 15:02 Temperature Pulse Rate 83 84 83 Respiratory Rate 20 18 18 Blood Pressure 92/42 L 92/36 L 102/45 L Pulse Oximetry 95 96 93 L 04/26/18 15:15 04/26/18 15:30 04/26/18 15:45 Temperature Pulse Rate 86 90 84 Respiratory Rate 17 19 15 Blood Pressure 92/51 L 89/41 L 87/39 L Pulse Oximetry 94 L 94 L 92 L 04/26/18 16:00 04/26/18 16:15 04/26/18 16:30 Temperature Pulse Rate 88 86 83 Respiratory Rate 16 18 18 Blood Pressure 84/35 L 99/35 L 94/40 L Pulse Oximetry 96 96 92 L 04/26/18 16:45 04/26/18 17:00 04/26/18 17:15 Temperature Pulse Rate 82 82 86 Respiratory Rate 16 15 17 Blood Pressure 90/41 L 84/39 L 78/38 L Pulse Oximetry 94 L 93 L 95 04/26/18 17:31 04/26/18 17:45 04/26/18 18:00 Temperature Pulse Rate 88 87 89 Respiratory Rate 17 16 26 H Blood Pressure 128/45 L 115/44 L 81/44 L Pulse Oximetry 95 95 97 04/26/18 18:15 04/26/18 18:30 04/26/18 18:45 Temperature Pulse Rate 85 86 91 H Respiratory Rate 17 18 17 Blood Pressure 89/42 L 82/49 L 94/48 L Pulse Oximetry 96 04/26/18 19:00 04/26/18 19:15 04/26/18 19:30 Temperature Pulse Rate 88 87 90 Respiratory Rate 16 19 19 Blood Pressure 100/48 L 101/45 L 99/48 L Pulse Oximetry 84 L 96 04/26/18 19:35 04/26/18 19:46 04/26/18 19:48 Temperature 98.2 F 98.2 F Pulse Rate 90 91 H 95 H Respiratory Rate 14 17 20 Blood Pressure 99/48 L 154/70 H 154/70 H Pulse Oximetry 96 96 04/26/18 20:00 04/26/18 20:16 04/26/18 20:17 Temperature 98.2 F Pulse Rate 89 88 Respiratory Rate 17 17 Blood Pressure 162/58 H 141/56 H Pulse Oximetry 95 96 95 04/26/18 21:46 04/26/18 22:20 04/26/18 22:31 Temperature 98.5 F 97.3 F L 97.7 F Pulse Rate 82 75 75 Respiratory Rate 18 20 18 Blood Pressure 118/51 L 116/58 L 93/44 L Pulse Oximetry 95 93 L 95 04/27/18 00:00 04/27/18 04:00 Temperature 98.4 F 97.8 F Pulse Rate 77 81 Respiratory Rate 18 18 Blood Pressure 122/57 L Pulse Oximetry 95 94 L Intake & Output 04/26/18 04/27/18 04/27/18 18:59 06:59 18:59 Intake Total 300 / 300 550 / 550 50 / 50 Output Total 1600 / 1600 Balance -1300 / -1300 550 / 550 50 / 50 Weight 72.4 kg Intake: IV 300 / 300 100 / 100 50 / 50 Flexbumin 25% Inj 100 ML @ 60 200 / 200 mls/hr IV.SIG WITH DIALYSIS PRN Rx#:[id number] Zosyn 2.25 GM Premix 50 ML @ 100 / 100 100 / 100 50 / 50 100 mls/hr IV.SIG Q6H CIRILO Rx#: [id number] Other 50 / 50 Rbc As-3 Leukoreduced Unit 50 / 50 [id number] Intake (Blood Product) Amt 400 / 400 Rbc As-3 Leukoreduced Unit 400 / 400 [id number] Rbc As-3 Leukoreduced Unit 0 / 0 [id number] Output: Urine 600 / 600 Hemodialysis Amount 1000 / 1000 Other: # Voids 3 Date of Last Bowel Movement 04/25/18 04/25/18 # Bowel Movements 2 - Urinary Catheter Management Indwelling Urethral Catheter Cath placed during this visit: no <Matti Wharton - Last Filed: 04/27/18 08:46> Results - Labs CBC & Chem 7: 04/26/18 16:15 04/26/18 16:15 Laboratory Results - last 24 hr 04/25/18 04/26/18 04/26/18 23:45 06:25 12:36 WBC RBC Hgb Hct MCV MCH MCHC RDW Plt Count MPV Prelim Diff (Auto) Neut % (Auto) Lymph % (Auto) Traverse % (Auto) Eos % (Auto) Baso % (Auto) Neut # (Auto) Lymph # (Auto) [place]verse # (Auto) Eos # (Auto) Baso # (Auto) WBC Differential Diff Scan Differential Comment Platelet Estimate Platelet Morphology Sodium Potassium Chloride Carbon Dioxide Anion Gap BUN Creatinine Estimated GFR POC Glucose 283 H 128 H 245 H Random Glucose Calcium Blood Type Antibody Screen MTS Gel Crossmatch 04/26/18 04/26/18 04/26/18 16:15 16:15 18:12 WBC 10.3 RBC 2.11 L Hgb 6.8 L* Hct 19.7 L* MCV 93.6 MCH 32.3 MCHC 34.5 RDW 19.3 H Plt Count 260 MPV 9.8 Prelim Diff (Auto) Slide review pending Neut % (Auto) 73.0 H Lymph % (Auto) 15.7 Traverse % (Auto) 8.4 H Eos % (Auto) 2.4 Baso % (Auto) 0.5 Neut # (Auto) 7.5 Lymph # (Auto) 1.6 Traverse # (Auto) 0.9 Eos # (Auto) 0.2 Baso # (Auto) 0.1 WBC Differential . Diff Scan Auto diff confirmed Differential Comment . Platelet Estimate Normal Platelet Morphology Normal Sodium 141 Potassium 3.1 L Chloride 101 Carbon Dioxide 31.7 Anion Gap 8 BUN 29 H Creatinine 4.17 H Estimated GFR 10 L POC Glucose Random Glucose 117 H Calcium 8.2 L Blood Type O Negative Antibody Screen Negative MTS Gel Crossmatch See Detail 04/26/18 18:24 WBC RBC Hgb Hct MCV MCH MCHC RDW Plt Count MPV Prelim Diff (Auto) Neut % (Auto) Lymph % (Auto) Traverse % (Auto) Eos % (Auto) Baso % (Auto) Neut # (Auto) Lymph # (Auto) Traverse # (Auto) Eos # (Auto) Baso # (Auto) WBC Differential Diff Scan Differential Comment Platelet Estimate Platelet Morphology Sodium Potassium Chloride Carbon Dioxide Anion Gap BUN Creatinine Estimated GFR POC Glucose 142 H Random Glucose Calcium Blood Type Antibody Screen MTS Gel Crossmatch <Kmi Hannah - Last Filed: 04/26/18 19:17> - Labs CBC & Chem 7: 04/27/18 04:26 04/27/18 04:26 Laboratory Results - last 24 hr 04/20/18 04/26/18 04/26/18 07:11 12:36 16:15 WBC 10.3 RBC 2.11 L Hgb 6.8 L* Hct 19.7 L* MCV 93.6 MCH 32.3 MCHC 34.5 RDW 19.3 H Plt Count 260 MPV 9.8 Prelim Diff (Auto) Slide review pending Neut % (Auto) 73.0 H Lymph % (Auto) 15.7 Traverse % (Auto) 8.4 H Eos % (Auto) 2.4 Baso % (Auto) 0.5 Neut # (Auto) 7.5 Lymph # (Auto) 1.6 Traverse # (Auto) 0.9 Eos # (Auto) 0.2 Baso # (Auto) 0.1 WBC Differential . Diff Scan Auto diff confirmed Seg Neuts % (Manual) Lymphocytes % (Manual) Monocytes % (Manual) Eosinophils % (Manual) Basophils % (Manual) Myelocytes % (Man) Abs Neuts (Manual) Nucleated RBCs/100 WBC Differential Comment . Platelet Estimate Normal Platelet Morphology Normal Sodium Potassium Chloride Carbon Dioxide Anion Gap BUN Creatinine Estimated GFR POC Glucose 245 H Random Glucose Calcium Magnesium Blood Type Antibody Screen MTS Gel Crossmatch See Detail 04/26/18 04/26/18 04/26/18 16:15 18:12 18:24 WBC RBC Hgb Hct MCV MCH MCHC RDW Plt Count MPV Prelim Diff (Auto) Neut % (Auto) Lymph % (Auto) Traverse % (Auto) Eos % (Auto) Baso % (Auto) Neut # (Auto) Lymph # (Auto) Traverse # (Auto) Eos # (Auto) Baso # (Auto) WBC Differential Diff Scan Seg Neuts % (Manual) Lymphocytes % (Manual) Monocytes % (Manual) Eosinophils % (Manual) Basophils % (Manual) Myelocytes % (Man) Abs Neuts (Manual) Nucleated RBCs/100 WBC Differential Comment Platelet Estimate Platelet Morphology Sodium 141 Potassium 3.1 L Chloride 101 Carbon Dioxide 31.7 Anion Gap 8 BUN 29 H Creatinine 4.17 H Estimated GFR 10 L POC Glucose 142 H Random Glucose 117 H Calcium 8.2 L Magnesium Blood Type O Negative Antibody Screen Negative MTS Gel Crossmatch See Detail 04/27/18 04/27/18 04/27/18 00:12 04:26 04:26 WBC 10.1 RBC 2.97 L Hgb 9.6 L D Hct 26.6 L MCV 89.5 D MCH 32.2 MCHC 35.9 RDW 17.6 H Plt Count 294 MPV 9.6 Prelim Diff (Auto) Slide review pending Neut % (Auto) 64.7 Lymph % (Auto) 20.1 Traverse % (Auto) 11.0 H Eos % (Auto) 3.1 Baso % (Auto) 1.1 Neut # (Auto) 6.6 Lymph # (Auto) 2.0 Traverse # (Auto) 1.1 H Eos # (Auto) 0.3 Baso # (Auto) 0.1 WBC Differential Manual diff final Diff Scan Seg Neuts % (Manual) 65 Lymphocytes % (Manual) 27 Monocytes % (Manual) 4 Eosinophils % (Manual) 1 Basophils % (Manual) 2 Myelocytes % (Man) 1 H Abs Neuts (Manual) 6.7 Nucleated RBCs/100 WBC 2 H Differential Comment . Platelet Estimate Normal Platelet Morphology Normal Sodium 141 Potassium 3.0 L Chloride 102 Carbon Dioxide 28.0 Anion Gap 11 BUN 32 H Creatinine 5.36 H Estimated GFR 8 L POC Glucose 144 H Random Glucose 122 H Calcium 8.2 L Magnesium 1.7 Blood Type Antibody Screen MTS Gel Crossmatch <Matti Wharton - Last Filed: 04/27/18 08:46> Assessment and Plan - Plan This is a 72-year-old female who entered the hospital on 04/14/2018 after being found unresponsive per her roommate. According to the record and staff patient was intubated in the emergency room setting and received multiple lab work and aggressive therapy there was a CAT scan that showed distended gallbladder with cholelithiasis and liver ultrasound that showed positive cholelithiasis and gallbladder sludge and a small amount of air in the fundus of the gallbladder. Lab work was reviewed which showed initial hemoglobin 12.6 now decreased to 10.6 , initial WBC count 12.5 now normalized to 8.4, PT/INR 1.3, lipase 47, bilirubin 0.7, AST 1050, ALT 8:06 AM positive troponin IV 0.35. Gastroenterology was consulted to assist in her plan of care but it is noted after examination of the patient and per the record patient is acutely critically ill in the intensive care setting. There is currently no family present but according to staff patient has a daughter and a son. Transaminitis, these elevated liver enzymes could be related to shock liver since patient was found unresponsive. She will need continuing monitoring of these labs for any acute changes Anemia current hemoglobin 10.6 which is a mild decrease from admission. Patient has NG tube which shows dark bilious fluid return but also some possible coffee-ground debris noted initially in the NG tube. We will need to rule out any GI bleeding Ultrasound of the liver did show positive gallstones and sludge and recommendation was for MRCP but this will need to be done when patient is stable. MRCP has been ordered but probably on hold for this p.m. History of end-stage renal disease on hemodialysis Monday and Monday schedule. Patient has had cultures done for possible sepsis Left upper extremity is cool to the touch right upper extremity is warm, both lower extremities are cool. Possible non-STEMI cardiology involved Possible gallbladder disease rule out Ultrasound gallbladder contains sludge and stones. However, no additional findings are present to definitively indicate acute cholecystitis. Common bile duct is enlarged but contains no visible stone. Given the pain one could consider MRCP for further evaluation of the common duct stone as a cause for the duct dilatation in right upper quadrant pain. Atrophic right kidney with changes suggesting chronic medical renal disease. There is a complex cystic lesion in the mid kidney and renal sinus measuring up to 3.5 cm. At some point ideally be further characterized with renal protocol MRI with and without intravenous contrast. This should be performed on an elective basis when condition permits. 04/16/2018 -Patient intubated and mechanically ventilated. Plan for MRCP today. Orogastric tube to low intermittent suction 100 mL's of dark green bilious fluid noted. No obvious bleeding noted. -Transaminitis-likely due to shock liver as patient was found unresponsive, will continue to monitor LFTs -WBC 12.4 hemoglobin 10.3 hematocrit 31.6 INR 1.3 total bilirubin 0.9 AST 475 ALT 632 alk phos 58 ammonia less than 10 -04/16/2018 MRCP revealed the following findings: 1. Cholelithiasis with multiple small gallstones layering dependently. There is no gallbladder wall thickening or inflammatory change. No gas is visualized on the MRI. 2. Common bile duct measuring up to 1 cm with no filling defects or mass. This could represent distal obstruction or prior passage of stones. 3. Multiple benign-appearing small cystic structures in the pancreas. 4. Bilateral simple renal cysts as well as a more complex right parapelvic cyst. 04/17/2018 Intubated and mechanically ventilated. Orogastric tube to low intermittent wall suction, minimal scant drainage dark green bilious fluid. No obvious bleeding noted. Transaminitis--trending down, total bilirubin 1.0 AST 423 ALT 560 alk phos 74 WBC 10.6 hemoglobin 9.2 hematocrit 27.1 Decrease probability of choledocholithiasis, likely shock liver in view of liver panel Continue present conservative treatment 04/18/2018 Extubated on oxygen simple mask. No bleeding noted WBC 8.8 hemoglobin 9.7 hematocrit 29.3 platelet count 206 Total bilirubin 1.3 AST 217 alk phos 95 ALT 460 ammonia 16 lipase 217 04/20/2018 Patient resting soundly with eyes closed, awakens easily Denies abdominal pain. GI notified due to patient passing large amounts of maroon colored stool with clots overnight. WBC 10.2 hemoglobin 6.8 hematocrit 21.1 platelet count 225 INR 1.3 Total bilirubin 1.0 AST 66 ALT 168 alk phos 155 improving. 04/22/2018 Patient awake and alert Denies abdominal pain nausea or vomiting No reported bleeding WBC 11.9 hemoglobin 7.8 hematocrit 23.3 stable platelet count 182 04/21/2018 EGD findings-Esophagus: Normal mucosa, Z line at 35 cm Stomach: mild gastritis seen in the antrum. Biopsies taken from the antrum and body. No ulcers or erosions. No evidence of bleeding. Duodenum: normal bulb through second portion. 04/21/2018 colonoscopy findings-colonoscopy, prep was not adequate due to red blood and maroon blood throughout colon. Terminal ileum : red blood was seen in the terminal ileum for 10 cm. Colon: Moderate diverticulosis seen throughout the colon. Red and maroon stool seen throughout the colon Rectum: Maroon and black blood seen. 04/23/2018 Patient awake and alert No reported bleeding Denies abdominal pain nausea or vomiting, states she is hungry WBC 16.9 hemoglobin 8.3 hematocrit 24.1 platelet count 242 04/26/2018 Patient laying semi-recombinant No reported or active bleeding GI reconsulted for drop in hemoglobin WBC 10.3 hemoglobin 6.8 hematocrit 19.7 2 units packed RBCs ordered for transfusion Patient post hemodialysis Patient denies abdominal pain nausea or vomiting Bedside RN reports patient had 2 soft brown BMs today without any noted new or old bleeding Plan -Clear liquid diet -Monitor for bleeding -Monitor hemoglobin and hematocrit -Transfuse as needed -Pantoprazole 40 mg p.o. daily -Stat bleeding scan -Supportive care -Further recommendations to follow This patient has been seen by myself and Dr. Wharton and this note is written on his behalf - Attending Attestation Dr. Wharton <Kim Hannah - Last Filed: 04/26/18 19:17> - Attending Attestation The patient is seen and examined. I agree with the assessment and recommendations above. <Matti Wharton - Last Filed: 04/27/18 08:46>
[2018-04-26] MEDS: Gabapentin 100 MG Capsule PO SCH (21:11)
[2018-04-27] MEDS: Insulin NovoLOG Aspart Correctional Sugar Inj SQ SCH ×4 (00:13→17:39)
[2018-04-27] MEDS: Oral Hygiene Kit OROPHARYNG SCH ×4 (00:13→15:01)
[2018-04-27] MEDS: Piperacil/Tazo 2.25 GM Premix 50 ML IV.SIG SCH ×2 (02:57→08:03)
[2018-04-27] MEDS: Artificial Tears Opth Drops 15 ML Bottle EACH EYE SCH ×3 (02:58→18:14)
[2018-04-27 05:10] LABS: Baso # (Auto) 0.1 th/mm3 (0.0-0.2); Baso % (Auto) 1.1 % (0.0-2.0); Eos # (Auto) 0.3 th/mm3 (0.0-0.4); Eos % (Auto) 3.1 % (0.0-4.0); Hematocrit 26.6 % (35.0-46.0); Hemoglobin 9.6 gm/dL (11.6-15.3); Lymph % (Auto) 20.1 % (9.0-44.0); Mean Corpuscular HGB Conc 35.9 % (32.0-36.0); Mean Corpuscular Hemoglobin 32.2 pg (27.0-34.0); Mean Corpuscular Volume 89.5 fL (80.0-100.0); Mean Platelet Volume 9.6 fL (7.0-11.0); Mono # (Auto) 1.1 th/mm3 (0.0-0.9); Neut # (Auto) 6.6 th/mm3 (1.8-7.7); Neut % (Auto) 64.7 % (16.0-70.0); Platelet Count 294 th/mm3 (150-450); Red Blood Count 2.97 mil/mm3 (4.00-5.30); Red Cell Distribution Width 17.6 % (11.6-17.2); White Blood Count 10.1 th/mm3 (4.0-11.0)
[2018-04-27 05:24] LABS: Calcium 8.2 mg/dL (8.5-10.1); Magnesium 1.7 mg/dL (1.5-2.5)
[2018-04-27 08:03] LABS: Eosinophils 1 % (0-4); Lymphocytes 27 % (9-44); Monocytes 4 % (0-8); Myelocytes 1 % (0-0); Tallied Nucleated RBC 2 (0-0)
[2018-04-27 08:04] LABS: Platelet Estimate Normal (Normal); Platelet Morphology Normal (Normal)
[2018-04-27] MEDS: Vitamin B Complex/Vit C/Folic Tablet PO SCH (08:38)
[2018-04-27] MEDS: Calcium Acetate 667 MG Capsule NG/OG SCH ×3 (08:38→17:40)
[2018-04-27] MEDS: Lactobacillus Acidophilus/L. Spores Tablet PO SCH ×2 (08:39→21:10)
[2018-04-27] MEDS: QUEtiapine 25 MG Tablet PO SCH ×2 (08:39→11:33)
[2018-04-27] MEDS: dilTIAZem 30 MG Tablet PO SCH ×4 (08:39→21:09)
[2018-04-27] MEDS: Mupirocin 2% Nasal Oint Topical Syringe EACH NARE SCH ×2 (08:41→21:10)
[2018-04-27] MEDS: Chlorhexidine 0.12% Oral Kit 15 ML UDC OROPHARYNG SCH ×2 (08:42→21:10)
--- NOTE | 2018-04-27 10:59 | P.PNGI ---
Subjective Interval history: Patient sitting up in bedside chair Denies any noted bleeding States they want to go home No discomfort reported <HannahKim - Last Filed: 04/27/18 18:52> Physical Exam Vital signs: Vital Signs 04/26/18 11:00 04/26/18 11:01 04/26/18 11:51 Temperature Pulse Rate 84 87 86 Respiratory Rate 17 17 17 Blood Pressure 125/81 96/38 L Pulse Oximetry 93 L 93 L 94 L 04/26/18 11:52 04/26/18 12:00 04/26/18 12:01 Temperature Pulse Rate 87 84 83 Respiratory Rate 18 14 17 Blood Pressure 146/56 H 161/60 H Pulse Oximetry 94 L 93 L 92 L 04/26/18 12:16 04/26/18 12:31 04/26/18 12:45 Temperature Pulse Rate 80 75 76 Respiratory Rate 15 14 12 Blood Pressure 84/45 L 93/43 L 91/44 L Pulse Oximetry 93 L 94 L 94 L 04/26/18 13:00 04/26/18 13:15 04/26/18 13:30 Temperature Pulse Rate 74 72 78 Respiratory Rate 12 13 15 Blood Pressure 88/41 L 88/42 L 72/35 L Pulse Oximetry 94 L 94 L 94 L 04/26/18 13:32 04/26/18 13:45 04/26/18 14:00 Temperature Pulse Rate 77 79 84 Respiratory Rate 13 24 22 Blood Pressure 77/35 L 87/35 L 111/47 L Pulse Oximetry 94 L 97 96 04/26/18 14:15 04/26/18 14:30 04/26/18 14:45 Temperature Pulse Rate 86 82 83 Respiratory Rate 10 L 13 20 Blood Pressure 108/49 L 104/44 L 92/42 L Pulse Oximetry 94 L 94 L 95 04/26/18 15:00 04/26/18 15:02 04/26/18 15:15 Temperature Pulse Rate 84 83 86 Respiratory Rate 18 18 17 Blood Pressure 92/36 L 102/45 L 92/51 L Pulse Oximetry 96 93 L 94 L 04/26/18 15:30 04/26/18 15:45 04/26/18 16:00 Temperature Pulse Rate 90 84 88 Respiratory Rate 19 15 16 Blood Pressure 89/41 L 87/39 L 84/35 L Pulse Oximetry 94 L 92 L 96 04/26/18 16:15 04/26/18 16:30 04/26/18 16:45 Temperature Pulse Rate 86 83 82 Respiratory Rate 18 18 16 Blood Pressure 99/35 L 94/40 L 90/41 L Pulse Oximetry 96 92 L 94 L 04/26/18 17:00 04/26/18 17:15 04/26/18 17:31 Temperature Pulse Rate 82 86 88 Respiratory Rate 15 17 17 Blood Pressure 84/39 L 78/38 L 128/45 L Pulse Oximetry 93 L 95 95 04/26/18 17:45 04/26/18 18:00 04/26/18 18:15 Temperature Pulse Rate 87 89 85 Respiratory Rate 16 26 H 17 Blood Pressure 115/44 L 81/44 L 89/42 L Pulse Oximetry 95 97 96 04/26/18 18:30 04/26/18 18:45 04/26/18 19:00 Temperature Pulse Rate 86 91 H 88 Respiratory Rate 18 17 16 Blood Pressure 82/49 L 94/48 L 100/48 L Pulse Oximetry 84 L 04/26/18 19:15 04/26/18 19:30 04/26/18 19:35 Temperature 98.2 F Pulse Rate 87 90 90 Respiratory Rate 19 19 14 Blood Pressure 101/45 L 99/48 L 99/48 L Pulse Oximetry 96 04/26/18 19:46 04/26/18 19:48 04/26/18 20:00 Temperature 98.2 F 98.2 F Pulse Rate 91 H 95 H 89 Respiratory Rate 17 20 17 Blood Pressure 154/70 H 154/70 H 162/58 H Pulse Oximetry 96 96 95 04/26/18 20:16 04/26/18 20:17 04/26/18 21:46 Temperature 98.5 F Pulse Rate 88 82 Respiratory Rate 17 18 Blood Pressure 141/56 H 118/51 L Pulse Oximetry 96 95 95 04/26/18 22:20 04/26/18 22:31 04/27/18 00:00 Temperature 97.3 F L 97.7 F 98.4 F Pulse Rate 75 75 77 Respiratory Rate 20 18 18 Blood Pressure 116/58 L 93/44 L 122/57 L Pulse Oximetry 93 L 95 95 04/27/18 04:00 04/27/18 08:00 Temperature 97.8 F 98.4 F Pulse Rate 81 77 Respiratory Rate 18 16 Blood Pressure 136/57 L Pulse Oximetry 94 L 95 Intake & Output 04/26/18 04/27/18 04/27/18 18:59 06:59 18:59 Intake Total 300 / 300 550 / 550 50 / 50 Output Total 1600 / 1600 Balance -1300 / -1300 550 / 550 50 / 50 Weight 72.4 kg Intake: IV 300 / 300 100 / 100 50 / 50 Flexbumin 25% Inj 100 ML @ 60 200 / 200 mls/hr IV.SIG WITH DIALYSIS PRN Rx#:[id number] Zosyn 2.25 GM Premix 50 ML @ 100 / 100 100 / 100 50 / 50 100 mls/hr IV.SIG Q6H CIRILO Rx#: [id number] Other 50 / 50 Rbc As-3 Leukoreduced Unit 50 / 50 [id number] Intake (Blood Product) Amt 400 / 400 Rbc As-3 Leukoreduced Unit 400 / 400 [id number] Rbc As-3 Leukoreduced Unit 0 / 0 [id number] Output: Urine 600 / 600 Hemodialysis Amount 1000 / 1000 Other: # Voids 3 Date of Last Bowel Movement 04/25/18 04/25/18 # Bowel Movements 2 - Constitutional chronically ill appearing, cooperative - Routine HEENT Exam Head: Present: normocephalic - Routine Respiratory Exam Present: CTA bilaterally. Absent: accessory muscle use - Routine Cardiovascular Exam Present: RRR - Routine Abdominal Exam Present: soft, normoactive bowel sounds. Absent: tenderness, distended, guarding, firm - Routine Skin Exam Present: dry, warm. Absent: pallor - Routine Neurological Exam Present: alert - Urinary Catheter Management Indwelling Urethral Catheter Cath placed during this visit: yes, but has since been removed by the nurse Reason for continuing: Hourly intake/output Insertion date: 04/14/18 Insertion time: 10:35 Removal date: 04/14/18 Removal time: 17:30 <Kim Hannah - Last Filed: 04/27/18 18:52> Vital signs: Vital Signs 04/27/18 12:00 04/27/18 16:00 04/27/18 19:22 Temperature 97.3 F L 98.6 F Pulse Rate 67 74 Respiratory Rate 16 16 Blood Pressure 108/47 L 110/53 L Pulse Oximetry 97 97 96 04/27/18 20:00 04/28/18 00:00 04/28/18 01:00 Temperature 97.9 F 98.1 F Pulse Rate 74 78 Respiratory Rate 16 16 20 Blood Pressure 154/64 H 135/57 L Pulse Oximetry 97 96 04/28/18 08:00 Temperature 98 F Pulse Rate 87 Respiratory Rate 18 Blood Pressure 123/74 Pulse Oximetry 94 L Intake & Output 04/27/18 04/28/18 04/28/18 18:59 06:59 18:59 Intake Total 650 / 650 Output Total 300 / 300 Balance 650 / 650 -300 / -300 Weight 72.3 kg Intake: IV 50 / 50 Zosyn 2.25 GM Premix 50 ML @ 50 / 50 100 mls/hr IV.SIG Q6H CIRILO Rx#: [id number] Oral 600 / 600 Output: Urine 300 / 300 Other: # Voids 2 Date of Last Bowel Movement 04/27/18 # Bowel Movements 2 - Urinary Catheter Management Indwelling Urethral Catheter Cath placed during this visit: no <Matti Wharton - Last Filed: 04/28/18 09:56> Results - Labs CBC & Chem 7: 04/27/18 04:26 04/27/18 15:40 Laboratory Results - last 24 hr 04/20/18 04/26/18 04/26/18 07:11 12:36 16:15 WBC 10.3 RBC 2.11 L Hgb 6.8 L* Hct 19.7 L* MCV 93.6 MCH 32.3 MCHC 34.5 RDW 19.3 H Plt Count 260 MPV 9.8 Prelim Diff (Auto) Slide review pending Neut % (Auto) 73.0 H Lymph % (Auto) 15.7 [place] % (Auto) 8.4 H Eos % (Auto) 2.4 Baso % (Auto) 0.5 Neut # (Auto) 7.5 Lymph # (Auto) 1.6 [place] # (Auto) 0.9 Eos # (Auto) 0.2 Baso # (Auto) 0.1 WBC Differential . Diff Scan Auto diff confirmed Seg Neuts % (Manual) Lymphocytes % (Manual) Monocytes % (Manual) Eosinophils % (Manual) Basophils % (Manual) Myelocytes % (Man) Abs Neuts (Manual) Nucleated RBCs/100 WBC Differential Comment . Platelet Estimate Normal Platelet Morphology Normal Sodium Potassium Chloride Carbon Dioxide Anion Gap BUN Creatinine Estimated GFR POC Glucose 245 H Random Glucose Calcium Magnesium Blood Type Antibody Screen MTS Gel Crossmatch See Detail 04/26/18 04/26/18 04/26/18 16:15 18:12 18:24 WBC RBC Hgb Hct MCV MCH MCHC RDW Plt Count MPV Prelim Diff (Auto) Neut % (Auto) Lymph % (Auto) [place] % (Auto) Eos % (Auto) Baso % (Auto) Neut # (Auto) Lymph # (Auto) [place] # (Auto) Eos # (Auto) Baso # (Auto) WBC Differential Diff Scan Seg Neuts % (Manual) Lymphocytes % (Manual) Monocytes % (Manual) Eosinophils % (Manual) Basophils % (Manual) Myelocytes % (Man) Abs Neuts (Manual) Nucleated RBCs/100 WBC Differential Comment Platelet Estimate Platelet Morphology Sodium 141 Potassium 3.1 L Chloride 101 Carbon Dioxide 31.7 Anion Gap 8 BUN 29 H Creatinine 4.17 H Estimated GFR 10 L POC Glucose 142 H Random Glucose 117 H Calcium 8.2 L Magnesium Blood Type O Negative Antibody Screen Negative MTS Gel Crossmatch See Detail 04/27/18 04/27/18 04/27/18 00:12 04:26 04:26 WBC 10.1 RBC 2.97 L Hgb 9.6 L D Hct 26.6 L MCV 89.5 D MCH 32.2 MCHC 35.9 RDW 17.6 H Plt Count 294 MPV 9.6 Prelim Diff (Auto) Slide review pending Neut % (Auto) 64.7 Lymph % (Auto) 20.1 [place] % (Auto) 11.0 H Eos % (Auto) 3.1 Baso % (Auto) 1.1 Neut # (Auto) 6.6 Lymph # (Auto) 2.0 [place] # (Auto) 1.1 H Eos # (Auto) 0.3 Baso # (Auto) 0.1 WBC Differential Manual diff final Diff Scan Seg Neuts % (Manual) 65 Lymphocytes % (Manual) 27 Monocytes % (Manual) 4 Eosinophils % (Manual) 1 Basophils % (Manual) 2 Myelocytes % (Man) 1 H Abs Neuts (Manual) 6.7 Nucleated RBCs/100 WBC 2 H Differential Comment . Platelet Estimate Normal Platelet Morphology Normal Sodium 141 Potassium 3.0 L Chloride 102 Carbon Dioxide 28.0 Anion Gap 11 BUN 32 H Creatinine 5.36 H Estimated GFR 8 L POC Glucose 144 H Random Glucose 122 H Calcium 8.2 L Magnesium 1.7 Blood Type Antibody Screen MTS Gel Crossmatch <Kim Hannah - Last Filed: 04/27/18 18:52> - Labs CBC & Chem 7: 04/28/18 05:16 04/28/18 05:16 Laboratory Results - last 24 hr 04/27/18 04/27/18 04/27/18 04:26 11:20 15:40 WBC RBC Hgb Hct MCV MCH MCHC RDW Plt Count MPV Neut % (Auto) Lymph % (Auto) [place] % (Auto) Eos % (Auto) Baso % (Auto) Neut # (Auto) Lymph # (Auto) [place] # (Auto) Eos # (Auto) Baso # (Auto) WBC Differential Differential Comment Sodium Potassium 3.1 L Chloride Carbon Dioxide Anion Gap BUN Creatinine Estimated GFR POC Glucose 291 H Random Glucose Calcium Phosphorus Magnesium 1.6 04/27/18 04/28/18 04/28/18 17:37 00:13 05:16 WBC 9.8 RBC 3.11 L Hgb 9.8 L Hct 28.6 L MCV 91.9 MCH 31.5 MCHC 34.2 RDW 17.4 H Plt Count 361 MPV 9.7 Neut % (Auto) 65.8 Lymph % (Auto) 19.8 [place] % (Auto) 10.2 H Eos % (Auto) 3.0 Baso % (Auto) 1.2 Neut # (Auto) 6.4 Lymph # (Auto) 1.9 [place] # (Auto) 1.0 H Eos # (Auto) 0.3 Baso # (Auto) 0.1 WBC Differential . Differential Comment Auto diff final Sodium Potassium Chloride Carbon Dioxide Anion Gap BUN Creatinine Estimated GFR POC Glucose 130 H 120 H Random Glucose Calcium Phosphorus Magnesium 04/28/18 04/28/18 05:16 06:14 WBC RBC Hgb Hct MCV MCH MCHC RDW Plt Count MPV Neut % (Auto) Lymph % (Auto) [place] % (Auto) Eos % (Auto) Baso % (Auto) Neut # (Auto) Lymph # (Auto) [place] # (Auto) Eos # (Auto) Baso # (Auto) WBC Differential Differential Comment Sodium 141 Potassium 3.4 L Chloride 101 Carbon Dioxide 27.6 Anion Gap 12 BUN 41 H Creatinine 7.23 H Estimated GFR 6 L POC Glucose 120 H Random Glucose 126 H Calcium 8.5 Phosphorus 3.5 Magnesium <Matti Wharton - Last Filed: 04/28/18 09:56> Assessment and Plan - Plan This is a 72-year-old female who entered the hospital on 04/14/2018 after being found unresponsive per her roommate. According to the record and staff patient was intubated in the emergency room setting and received multiple lab work and aggressive therapy there was a CAT scan that showed distended gallbladder with cholelithiasis and liver ultrasound that showed positive cholelithiasis and gallbladder sludge and a small amount of air in the fundus of the gallbladder. Lab work was reviewed which showed initial hemoglobin 12.6 now decreased to 10.6 , initial WBC count 12.5 now normalized to 8.4, PT/INR 1.3, lipase 47, bilirubin 0.7, AST 1050, ALT 8:06 AM positive troponin IV 0.35. Gastroenterology was consulted to assist in her plan of care but it is noted after examination of the patient and per the record patient is acutely critically ill in the intensive care setting. There is currently no family present but according to staff patient has a daughter and a son. Transaminitis, these elevated liver enzymes could be related to shock liver since patient was found unresponsive. She will need continuing monitoring of these labs for any acute changes Anemia current hemoglobin 10.6 which is a mild decrease from admission. Patient has NG tube which shows dark bilious fluid return but also some possible coffee-ground debris noted initially in the NG tube. We will need to rule out any GI bleeding Ultrasound of the liver did show positive gallstones and sludge and recommendation was for MRCP but this will need to be done when patient is stable. MRCP has been ordered but probably on hold for this p.m. History of end-stage renal disease on hemodialysis Monday and Monday schedule. Patient has had cultures done for possible sepsis Left upper extremity is cool to the touch right upper extremity is warm, both lower extremities are cool. Possible non-STEMI cardiology involved Possible gallbladder disease rule out Ultrasound gallbladder contains sludge and stones. However, no additional findings are present to definitively indicate acute cholecystitis. Common bile duct is enlarged but contains no visible stone. Given the pain one could consider MRCP for further evaluation of the common duct stone as a cause for the duct dilatation in right upper quadrant pain. Atrophic right kidney with changes suggesting chronic medical renal disease. There is a complex cystic lesion in the mid kidney and renal sinus measuring up to 3.5 cm. At some point ideally be further characterized with renal protocol MRI with and without intravenous contrast. This should be performed on an elective basis when condition permits. 04/16/2018 -Patient intubated and mechanically ventilated. Plan for MRCP today. Orogastric tube to low intermittent suction 100 mL's of dark green bilious fluid noted. No obvious bleeding noted. -Transaminitis-likely due to shock liver as patient was found unresponsive, will continue to monitor LFTs -WBC 12.4 hemoglobin 10.3 hematocrit 31.6 INR 1.3 total bilirubin 0.9 AST 475 ALT 632 alk phos 58 ammonia less than 10 -04/16/2018 MRCP revealed the following findings: 1. Cholelithiasis with multiple small gallstones layering dependently. There is no gallbladder wall thickening or inflammatory change. No gas is visualized on the MRI. 2. Common bile duct measuring up to 1 cm with no filling defects or mass. This could represent distal obstruction or prior passage of stones. 3. Multiple benign-appearing small cystic structures in the pancreas. 4. Bilateral simple renal cysts as well as a more complex right parapelvic cyst. 04/17/2018 Intubated and mechanically ventilated. Orogastric tube to low intermittent wall suction, minimal scant drainage dark green bilious fluid. No obvious bleeding noted. Transaminitis--trending down, total bilirubin 1.0 AST 423 ALT 560 alk phos 74 WBC 10.6 hemoglobin 9.2 hematocrit 27.1 Decrease probability of choledocholithiasis, likely shock liver in view of liver panel Continue present conservative treatment 04/18/2018 Extubated on oxygen simple mask. No bleeding noted WBC 8.8 hemoglobin 9.7 hematocrit 29.3 platelet count 206 Total bilirubin 1.3 AST 217 alk phos 95 ALT 460 ammonia 16 lipase 217 04/20/2018 Patient resting soundly with eyes closed, awakens easily Denies abdominal pain. GI notified due to patient passing large amounts of maroon colored stool with clots overnight. WBC 10.2 hemoglobin 6.8 hematocrit 21.1 platelet count 225 INR 1.3 Total bilirubin 1.0 AST 66 ALT 168 alk phos 155 improving. 04/22/2018 Patient awake and alert Denies abdominal pain nausea or vomiting No reported bleeding WBC 11.9 hemoglobin 7.8 hematocrit 23.3 stable platelet count 182 04/21/2018 EGD findings-Esophagus: Normal mucosa, Z line at 35 cm Stomach: mild gastritis seen in the antrum. Biopsies taken from the antrum and body. No ulcers or erosions. No evidence of bleeding. Duodenum: normal bulb through second portion. 04/21/2018 colonoscopy findings-colonoscopy, prep was not adequate due to red blood and maroon blood throughout colon. Terminal ileum : red blood was seen in the terminal ileum for 10 cm. Colon: Moderate diverticulosis seen throughout the colon. Red and maroon stool seen throughout the colon Rectum: Maroon and black blood seen. 04/23/2018 Patient awake and alert No reported bleeding Denies abdominal pain nausea or vomiting, states she is hungry WBC 16.9 hemoglobin 8.3 hematocrit 24.1 platelet count 242 04/26/2018 Patient laying semi-recombinant No reported or active bleeding GI reconsulted for drop in hemoglobin WBC 10.3 hemoglobin 6.8 hematocrit 19.7 2 units packed RBCs ordered for transfusion Patient post hemodialysis Patient denies abdominal pain nausea or vomiting Bedside RN reports patient had 2 soft brown BMs today without any noted new or old bleeding 04/27/2018 Patient sitting up in chair at bedside No reported or active bleeding Patient denies nausea vomiting or abdominal pain WBC 10.1 hemoglobin 9.6 hematocrit 26.6 platelet count 294-posttransfusion of 1 unit packed RBCs Bleeding scan canceled-patient refused Plan -We will advance diet to regular soft diet -Monitor for bleeding -Monitor hemoglobin and hematocrit -Transfuse as needed -Pantoprazole 40 mg p.o. daily -Supportive care -GI will sign off at this time, please notify for any further assistance This patient has been seen by myself and Dr. Wharton and this note is written on his behalf - Attending Attestation Dr. Wharton <Kim Hannah - Last Filed: 04/27/18 18:52> - Attending Attestation Patient seen and examined. I agree with the assessment and recommendations above. <Matti Wharton - Last Filed: 04/28/18 09:56>
--- NOTE | 2018-04-27 11:41 | P.PNNP ---
Subjective Interval history: Patient was seen, no distress, complaints of wanting to go home. Patient stated she feels great and was able to walk to bathroom by herself. Patient stated she is refusing rehab and has plenty of help at home. Patient had blood transfusion yesterday, Hgb now 9.6. Patient gets dialysis TTS. Patient dialyzed yesterday, 1 L removed. <Nehemiah Reyes - Last Filed: 04/27/18 12:45> Physical Exam Vital signs: Vital Signs 04/26/18 11:51 04/26/18 11:52 04/26/18 12:00 Temperature Pulse Rate 86 87 84 Respiratory Rate 17 18 14 Blood Pressure 96/38 L 146/56 H Pulse Oximetry 94 L 94 L 93 L 04/26/18 12:01 04/26/18 12:16 04/26/18 12:31 Temperature Pulse Rate 83 80 75 Respiratory Rate 17 15 14 Blood Pressure 161/60 H 84/45 L 93/43 L Pulse Oximetry 92 L 93 L 94 L 04/26/18 12:45 04/26/18 13:00 04/26/18 13:15 Temperature Pulse Rate 76 74 72 Respiratory Rate 12 12 13 Blood Pressure 91/44 L 88/41 L 88/42 L Pulse Oximetry 94 L 94 L 94 L 04/26/18 13:30 04/26/18 13:32 04/26/18 13:45 Temperature Pulse Rate 78 77 79 Respiratory Rate 15 13 24 Blood Pressure 72/35 L 77/35 L 87/35 L Pulse Oximetry 94 L 94 L 97 04/26/18 14:00 04/26/18 14:15 04/26/18 14:30 Temperature Pulse Rate 84 86 82 Respiratory Rate 22 10 L 13 Blood Pressure 111/47 L 108/49 L 104/44 L Pulse Oximetry 96 94 L 94 L 04/26/18 14:45 04/26/18 15:00 04/26/18 15:02 Temperature Pulse Rate 83 84 83 Respiratory Rate 20 18 18 Blood Pressure 92/42 L 92/36 L 102/45 L Pulse Oximetry 95 96 93 L 04/26/18 15:15 04/26/18 15:30 04/26/18 15:45 Temperature Pulse Rate 86 90 84 Respiratory Rate 17 19 15 Blood Pressure 92/51 L 89/41 L 87/39 L Pulse Oximetry 94 L 94 L 92 L 04/26/18 16:00 04/26/18 16:15 04/26/18 16:30 Temperature Pulse Rate 88 86 83 Respiratory Rate 16 18 18 Blood Pressure 84/35 L 99/35 L 94/40 L Pulse Oximetry 96 96 92 L 04/26/18 16:45 04/26/18 17:00 04/26/18 17:15 Temperature Pulse Rate 82 82 86 Respiratory Rate 16 15 17 Blood Pressure 90/41 L 84/39 L 78/38 L Pulse Oximetry 94 L 93 L 95 04/26/18 17:31 04/26/18 17:45 04/26/18 18:00 Temperature Pulse Rate 88 87 89 Respiratory Rate 17 16 26 H Blood Pressure 128/45 L 115/44 L 81/44 L Pulse Oximetry 95 95 97 04/26/18 18:15 04/26/18 18:30 04/26/18 18:45 Temperature Pulse Rate 85 86 91 H Respiratory Rate 17 18 17 Blood Pressure 89/42 L 82/49 L 94/48 L Pulse Oximetry 96 04/26/18 19:00 04/26/18 19:15 04/26/18 19:30 Temperature Pulse Rate 88 87 90 Respiratory Rate 16 19 19 Blood Pressure 100/48 L 101/45 L 99/48 L Pulse Oximetry 84 L 96 04/26/18 19:35 04/26/18 19:46 04/26/18 19:48 Temperature 98.2 F 98.2 F Pulse Rate 90 91 H 95 H Respiratory Rate 14 17 20 Blood Pressure 99/48 L 154/70 H 154/70 H Pulse Oximetry 96 96 04/26/18 20:00 04/26/18 20:16 04/26/18 20:17 Temperature 98.2 F Pulse Rate 89 88 Respiratory Rate 17 17 Blood Pressure 162/58 H 141/56 H Pulse Oximetry 95 96 95 04/26/18 21:46 04/26/18 22:20 04/26/18 22:31 Temperature 98.5 F 97.3 F L 97.7 F Pulse Rate 82 75 75 Respiratory Rate 18 20 18 Blood Pressure 118/51 L 116/58 L 93/44 L Pulse Oximetry 95 93 L 95 04/27/18 00:00 04/27/18 04:00 04/27/18 08:00 Temperature 98.4 F 97.8 F 98.4 F Pulse Rate 77 81 77 Respiratory Rate 18 18 16 Blood Pressure 122/57 L 136/57 L Pulse Oximetry 95 94 L 95 Intake & Output 04/26/18 04/27/18 04/27/18 18:59 06:59 18:59 Intake Total 300 / 300 550 / 550 50 / 50 Output Total 1600 / 1600 Balance -1300 / -1300 550 / 550 50 / 50 Weight 72.4 kg Intake: IV 300 / 300 100 / 100 50 / 50 Flexbumin 25% Inj 100 ML @ 60 200 / 200 mls/hr IV.SIG WITH DIALYSIS PRN Rx#:[id number] Zosyn 2.25 GM Premix 50 ML @ 100 / 100 100 / 100 50 / 50 100 mls/hr IV.SIG Q6H CIRILO Rx#: [id number] Other 50 / 50 Rbc As-3 Leukoreduced Unit 50 / 50 [id number] Intake (Blood Product) Amt 400 / 400 Rbc As-3 Leukoreduced Unit 400 / 400 [id number] Rbc As-3 Leukoreduced Unit 0 / 0 [id number] Output: Urine 600 / 600 Hemodialysis Amount 1000 / 1000 Other: # Voids 3 Date of Last Bowel Movement 04/25/18 04/25/18 # Bowel Movements 2 Narrative: GENERAL: No apparent distress. SKIN: pale CARDIOVASCULAR: Regular rate and rhythm without murmurs, gallops, or rubs. RESPIRATORY: Breath sounds decreased. No accessory muscle use. GASTROINTESTINAL: Abdomen soft, nondistended, nontender. EXTREMITIES: Mild edema left hand. Left arm AVF. - Urinary Catheter Management Indwelling Urethral Catheter Cath placed during this visit: yes, but has since been removed by the nurse Reason for continuing: Hourly intake/output Insertion date: 04/14/18 Insertion time: 10:35 Removal date: 04/14/18 Removal time: 17:30 <Nehemiah Reyes - Last Filed: 04/27/18 12:45> Vital signs: Vital Signs 04/26/18 17:15 04/26/18 17:31 04/26/18 17:45 Temperature Pulse Rate 86 88 87 Respiratory Rate 17 17 16 Blood Pressure 78/38 L 128/45 L 115/44 L Pulse Oximetry 95 95 95 04/26/18 18:00 04/26/18 18:15 04/26/18 18:30 Temperature Pulse Rate 89 85 86 Respiratory Rate 26 H 17 18 Blood Pressure 81/44 L 89/42 L 82/49 L Pulse Oximetry 97 96 04/26/18 18:45 04/26/18 19:00 04/26/18 19:15 Temperature Pulse Rate 91 H 88 87 Respiratory Rate 17 16 19 Blood Pressure 94/48 L 100/48 L 101/45 L Pulse Oximetry 84 L 04/26/18 19:30 04/26/18 19:35 04/26/18 19:46 Temperature 98.2 F 98.2 F Pulse Rate 90 90 91 H Respiratory Rate 19 14 17 Blood Pressure 99/48 L 99/48 L 154/70 H Pulse Oximetry 96 96 04/26/18 19:48 04/26/18 20:00 04/26/18 20:16 Temperature 98.2 F Pulse Rate 95 H 89 88 Respiratory Rate 20 17 17 Blood Pressure 154/70 H 162/58 H 141/56 H Pulse Oximetry 96 95 96 04/26/18 20:17 04/26/18 21:46 04/26/18 22:20 Temperature 98.5 F 97.3 F L Pulse Rate 82 75 Respiratory Rate 18 20 Blood Pressure 118/51 L 116/58 L Pulse Oximetry 95 95 93 L 04/26/18 22:31 04/27/18 00:00 04/27/18 04:00 Temperature 97.7 F 98.4 F 97.8 F Pulse Rate 75 77 81 Respiratory Rate 18 18 18 Blood Pressure 93/44 L 122/57 L Pulse Oximetry 95 95 94 L 04/27/18 08:00 04/27/18 09:05 04/27/18 12:00 Temperature 98.4 F 97.3 F L Pulse Rate 77 67 Respiratory Rate 16 18 16 Blood Pressure 136/57 L 108/47 L Pulse Oximetry 95 97 04/27/18 16:00 Temperature 98.6 F Pulse Rate 74 Respiratory Rate 16 Blood Pressure 110/53 L Pulse Oximetry 97 Intake & Output 04/26/18 04/27/18 04/27/18 18:59 06:59 18:59 Intake Total 300 / 300 580 / 580 50 / 50 Output Total 1600 / 1600 Balance -1300 / -1300 580 / 580 50 / 50 Weight 72.4 kg Intake: IV 300 / 300 130 / 130 50 / 50 Flexbumin 25% Inj 100 ML @ 60 200 / 200 mls/hr IV.SIG WITH DIALYSIS PRN Rx#:[id number] Zosyn 2.25 GM Premix 50 ML @ 100 / 100 100 / 100 50 / 50 100 mls/hr IV.SIG Q6H CIRILO Rx#: [id number] NS Inj 250 ML @ 15 mls/hr IV. 30 / 30 SIG ONCE CIRILO Rx#:[id number] Other 50 / 50 Rbc As-3 Leukoreduced Unit 50 / 50 [id number] Intake (Blood Product) Amt 400 / 400 Rbc As-3 Leukoreduced Unit 400 / 400 [id number] Rbc As-3 Leukoreduced Unit 0 / 0 [id number] Output: Urine 600 / 600 Hemodialysis Amount 1000 / 1000 Other: # Voids 3 Date of Last Bowel Movement 04/25/18 04/25/18 # Bowel Movements 2 - Urinary Catheter Management Indwelling Urethral Catheter Cath placed during this visit: no <Blake Michel - Last Filed: 04/27/18 17:14> Assessment and Plan - Assessment (1) ESRD (end stage renal disease) Code(s): N18.6 - End stage renal disease Status: Chronic Plan: Patient gets dialysis TTS. Patient dialyzed yesterday, 1 L removed. L arm AVF, avoid blood pressure or blood draws in left arm. s/p AVF ligation. Monitor fluid and electrolytes. Monitor phosphorus intermittently. Patient to receive dialysis at [facility] upon discharge. (2) Hyperkalemia Code(s): E87.5 - Hyperkalemia Status: Acute Plan: Resolved. Now hypokalemic. Monitor. (3) Acute metabolic encephalopathy Code(s): G93.41 - Metabolic encephalopathy Status: Acute (4) Acute hypoxemic respiratory failure Code(s): J96.01 - Acute respiratory failure with hypoxia Status: Acute Plan: s/p extubation. Breathing on room air. (5) Septic shock Code(s): A41.9 - Sepsis, unspecified organism; R65.21 - Severe sepsis with septic shock Status: Resolved Plan: On broad-spectrum antibiotic. ID on the case. <Nehemiah Reyes - Last Filed: 04/27/18 12:45> - Assessment (1) ESRD (end stage renal disease) Code(s): N18.6 - End stage renal disease Status: Chronic (2) Hyperkalemia Code(s): E87.5 - Hyperkalemia Status: Acute (3) Acute metabolic encephalopathy Code(s): G93.41 - Metabolic encephalopathy Status: Acute (4) Acute hypoxemic respiratory failure Code(s): J96.01 - Acute respiratory failure with hypoxia Status: Acute (5) Septic shock Code(s): A41.9 - Sepsis, unspecified organism; R65.21 - Severe sepsis with septic shock Status: Resolved - Attending Attestation patient was seen and examined. Outpatient dialysis is set up at [facility] at 1130 AM. Because of holiday schedule, she needs to be there on Monday this coming week. Replace potassium. Zosyn has been stopped. <Blake Michel - Last Filed: 04/27/18 17:14>
--- NOTE | 2018-04-27 12:40 | P.PNID ---
Subjective Remarks: is a 72 y/o WF with PMHx of CKD s/p attempt at PD catheter placement due to non compliance, also Left Brachiocephalic AV fistula on 2017 by . Patient was reportedly found with decreased level of consciousness. Room mates do not know much about her medical history and reportedly seen her normal the night prior. Per records EMS gave her Narcan and there was improvement noted. No family nos on chart and old records could not be assessed. Patients past medical records from prior visits could not be accessed by me but patient has CKD and prior Bradycardia on prior admit. Also patient has a history of stroke diabetes hypertension GERD. On admission she had leukocytosis of 12,000 with a left shift. Metabolic acidosis on ABG. Lactic acid 6.Troponins elevated. Cr at 9.6. Normal lipase, LFTs in thousands. CT with air concerning for emphysematous cholecystitis. At the time of my evaluation patient is in IMC, not on pressors, has received fluid bolus amount not documented per RN. She is currently intubated, not sedated, opens eyes, does not follow commands for me. No obvious focal deficit. ID consulted for evaluation and Mment of Severe Sepsis, possible acute cholecystitis. Notes reviewed awake, alert. Denies abdominal pain No N/V No other symptoms. Antibiotics: zosyn IV Lines: Line sites ok Past Medical History: reviewed Allergies/Adverse Reactions: Allergies No Known Allergies Allergy (Verified 01/22/18 10:23) Objective Vital Signs 04/26/18 12:45 04/26/18 13:00 04/26/18 13:15 Temperature Pulse Rate 76 74 72 Respiratory Rate 12 12 13 Blood Pressure 91/44 L 88/41 L 88/42 L Pulse Oximetry 94 L 94 L 94 L 04/26/18 13:30 04/26/18 13:32 04/26/18 13:45 Temperature Pulse Rate 78 77 79 Respiratory Rate 15 13 24 Blood Pressure 72/35 L 77/35 L 87/35 L Pulse Oximetry 94 L 94 L 97 04/26/18 14:00 04/26/18 14:15 04/26/18 14:30 Temperature Pulse Rate 84 86 82 Respiratory Rate 22 10 L 13 Blood Pressure 111/47 L 108/49 L 104/44 L Pulse Oximetry 96 94 L 94 L 04/26/18 14:45 12/20/18 15:00 04/26/18 15:02 Temperature Pulse Rate 83 84 83 Respiratory Rate 20 18 18 Blood Pressure 92/42 L 92/36 L 102/45 L Pulse Oximetry 95 96 93 L 04/26/18 15:15 04/26/18 15:30 04/26/18 15:45 Temperature Pulse Rate 86 90 84 Respiratory Rate 17 19 15 Blood Pressure 92/51 L 89/41 L 87/39 L Pulse Oximetry 94 L 94 L 92 L 04/26/18 16:00 04/26/18 16:15 04/26/18 16:30 Temperature Pulse Rate 88 86 83 Respiratory Rate 16 18 18 Blood Pressure 84/35 L 99/35 L 94/40 L Pulse Oximetry 96 96 92 L 04/26/18 16:45 04/26/18 17:00 04/26/18 17:15 Temperature Pulse Rate 82 82 86 Respiratory Rate 16 15 17 Blood Pressure 90/41 L 84/39 L 78/38 L Pulse Oximetry 94 L 93 L 95 04/26/18 17:31 04/26/18 17:45 04/26/18 18:00 Temperature Pulse Rate 88 87 89 Respiratory Rate 17 16 26 H Blood Pressure 128/45 L 115/44 L 81/44 L Pulse Oximetry 95 95 97 04/26/18 18:15 04/26/18 18:30 04/26/18 18:45 Temperature Pulse Rate 85 86 91 H Respiratory Rate 17 18 17 Blood Pressure 89/42 L 82/49 L 94/48 L Pulse Oximetry 96 04/26/18 19:00 04/26/18 19:15 04/26/18 19:30 Temperature Pulse Rate 88 87 90 Respiratory Rate 16 19 19 Blood Pressure 100/48 L 101/45 L 99/48 L Pulse Oximetry 84 L 96 04/26/18 19:35 04/26/18 19:46 04/26/18 19:48 Temperature 98.2 F 98.2 F Pulse Rate 90 91 H 95 H Respiratory Rate 14 17 20 Blood Pressure 99/48 L 154/70 H 154/70 H Pulse Oximetry 96 96 04/26/18 20:00 04/26/18 20:16 04/26/18 20:17 Temperature 98.2 F Pulse Rate 89 88 Respiratory Rate 17 17 Blood Pressure 162/58 H 141/56 H Pulse Oximetry 95 96 95 04/26/18 21:46 04/26/18 22:20 04/26/18 22:31 Temperature 98.5 F 97.3 F L 97.7 F Pulse Rate 82 75 75 Respiratory Rate 18 20 18 Blood Pressure 118/51 L 116/58 L 93/44 L Pulse Oximetry 95 93 L 95 04/27/18 00:00 04/27/18 04:00 04/27/18 08:00 Temperature 98.4 F 97.8 F 98.4 F Pulse Rate 77 81 77 Respiratory Rate 18 18 16 Blood Pressure 122/57 L 136/57 L Pulse Oximetry 95 94 L 95 04/27/18 12:00 Temperature 97.3 F L Pulse Rate 67 Respiratory Rate 16 Blood Pressure 108/47 L Pulse Oximetry 97 Intake & Output 04/26/18 04/27/18 04/27/18 18:59 06:59 18:59 Intake Total 300 / 300 550 / 550 50 / 50 Output Total 1600 / 1600 Balance -1300 / -1300 550 / 550 50 / 50 Weight 72.4 kg Intake: IV 300 / 300 100 / 100 50 / 50 Flexbumin 25% Inj 100 ML @ 60 200 / 200 mls/hr IV.SIG WITH DIALYSIS PRN Rx#:[id number] Zosyn 2.25 GM Premix 50 ML @ 100 / 100 100 / 100 50 / 50 100 mls/hr IV.SIG Q6H CIRILO Rx#: [id number] Other 50 / 50 Rbc As-3 Leukoreduced Unit 50 / 50 [id number] Intake (Blood Product) Amt 400 / 400 Rbc As-3 Leukoreduced Unit 400 / 400 [id number] Rbc As-3 Leukoreduced Unit 0 / 0 [id number] Output: Urine 600 / 600 Hemodialysis Amount 1000 / 1000 Other: # Voids 3 Date of Last Bowel Movement 04/25/18 04/25/18 # Bowel Movements 2 Lab - Hematology Results 04/26/18 04/27/18 16:15 04:26 WBC 10.3 10.1 RBC 2.11 L 2.97 L Hgb 6.8 L* 9.6 L D Hct 19.7 L* 26.6 L MCV 93.6 89.5 D MCH 32.3 32.2 MCHC 34.5 35.9 RDW 19.3 H 17.6 H Plt Count 260 294 MPV 9.8 9.6 Prelim Diff (Auto) Slide review pending Slide review pending Neut % (Auto) 73.0 H 64.7 Lymph % (Auto) 15.7 20.1 Calhoun % (Auto) 8.4 H 11.0 H Eos % (Auto) 2.4 3.1 Baso % (Auto) 0.5 1.1 Neut # (Auto) 7.5 6.6 Lymph # (Auto) 1.6 2.0 Calhoun # (Auto) 0.9 1.1 H Eos # (Auto) 0.2 0.3 Baso # (Auto) 0.1 0.1 WBC Differential . Manual diff final Diff Scan Auto diff confirmed Seg Neuts % (Manual) 65 Lymphocytes % (Manual) 27 Monocytes % (Manual) 4 Eosinophils % (Manual) 1 Basophils % (Manual) 2 Myelocytes % (Man) 1 H Abs Neuts (Manual) 6.7 Nucleated RBCs/100 WBC 2 H Differential Comment . . Platelet Estimate Normal Normal Platelet Morphology Normal Normal Lab - Chemistry Results 04/25/18 04/25/18 04/25/18 12:36 17:51 23:45 Sodium Potassium Chloride Carbon Dioxide Anion Gap BUN Creatinine Estimated GFR POC Glucose 270 H 120 H 283 H Random Glucose Calcium Magnesium 04/26/18 04/26/18 04/26/18 06:25 12:36 16:15 Sodium 141 Potassium 3.1 L Chloride 101 Carbon Dioxide 31.7 Anion Gap 8 BUN 29 H Creatinine 4.17 H Estimated GFR 10 L POC Glucose 128 H 245 H Random Glucose 117 H Calcium 8.2 L Magnesium 04/26/18 04/27/18 04/27/18 18:24 00:12 04:26 Sodium 141 Potassium 3.0 L Chloride 102 Carbon Dioxide 28.0 Anion Gap 11 BUN 32 H Creatinine 5.36 H Estimated GFR 8 L POC Glucose 142 H 144 H Random Glucose 122 H Calcium 8.2 L Magnesium 1.7 04/27/18 11:20 Sodium Potassium Chloride Carbon Dioxide Anion Gap BUN Creatinine Estimated GFR POC Glucose 291 H Random Glucose Calcium Magnesium Imaging: ITS Impressions Head CT 04/14/18 09:44 CONCLUSION: 1. 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 2. No evidence of acute infarct, hemorrhage, mass or edema. 3. No significant change compared to 04/12/2017. . Abdomen/Pelvis CT 04/14/18 10:59 CONCLUSION: 1. Distended gallbladder with cholelithiasis and minimal gas in the fundus. There is no significant pericholecystic fluid or inflammation. 2. Simple left renal cyst. 3. Bibasilar airspace disease. Liver Ultrasound 04/14/18 12:44 CONCLUSION: 1. Gallbladder contains sludge and stones. However, no additional findings are present to definitively indicate acute cholecystitis. 2. Common bile duct is enlarged but contains no visible stone. Given the pain one could consider MRCP for further evaluation of the common duct stone as a cause for the duct dilatation in right upper quadrant pain. 3. Atrophic right kidney with changes suggesting chronic medical renal disease. There is a complex cystic lesion in the mid kidney and renal sinus measuring up to 3.5 cm. At some point ideally be further characterized with renal protocol MRI with and without intravenous contrast. This should be performed on an elective basis when condition permits. Extremity Arterial Study 04/15/18 00:00 CONCLUSION: 1. Significantly limited examination due to unobtainable pressures in the forearms bilaterally. 2. Unobtainable pressures and absence of waveforms in the left hand. Cannot exclude steal from patient's left upper extremity brachiobasilic fistula. Upper Extremity Ultrasound 04/15/18 00:00 CONCLUSION: Patent left AV fistula. Venous Doppler Study 04/15/18 00:00 CONCLUSION: No evidence of DVT. Cholangiopancreatography MRI 04/16/18 07:10 CONCLUSION: 1. Cholelithiasis with multiple small gallstones layering dependently. There is no gallbladder wall thickening or inflammatory change. No gas is visualized on the MRI. 2. Common bile duct measuring up to 1 cm with no filling defects or mass. This could represent distal obstruction or prior passage of stones. 3. Multiple benign-appearing small cystic structures in the pancreas. 4. Bilateral simple renal cysts as well as a more complex right parapelvic cyst. GI Bleed Scan Nuclear Medicine 04/20/18 00:00 CONCLUSION: 1. Negative for gastrointestinal hemorrhage. Chest X-Ray 04/23/18 00:00 CONCLUSION: 1. Stable small area of opacity right infrahilar region, stable from prior. 2. Loss of delineation of the lateral left hemidiaphragm, a new finding, suggestive of either pleural effusion or a small infiltrate. Physical Exam: GENERAL: Awake, responding, NAD SKIN: Cool and dry, no generalized rash HEAD: Atraumatic. Normocephalic. No temporal or scalp tenderness. EYES: Pupils equal round and reactive. Scleral icterus. No injection or drainage. No petechia ENT: Dry oral mucosa NECK: Trachea midline. Supple, nontender, no meningeal signs. CARDIOVASCULAR: HS audible. RESPIRATORY: Air entry equal bilaterally. Decreased BS at bases GASTROINTESTINAL: Abdomen soft, not distended, tender in RUQ, no guarding, no rebound MUSCULOSKELETAL: Lower Extremities with no evidence of infection. Left AV fistula site ok. Left fingers bluish hue, cold clammy, looks slightly less blue NEUROLOGICAL: Awake, following commands Psych: cooperative IV line sites ok. HD cath Assessment and Plan - Plan Severe Sepsis Probable acute emphysematous cholecystitis (CT findings and RUQ tenderness) CKD Attempted PD catheter placement in 01/2018. AV fistula LUE placed on 01/22/2018. Cyanosis L hand, ?steal syndrome - being evaluated GIB Acute metabolic encephalopathy: sepsis, metabolic. Recs: JAUN Zosyn IV Observe off antibiotics. Will sign off please call back if any change in clinical condition or questions.
--- NOTE | 2018-04-27 16:21 | P.PNIM ---
Subjective Interval history: Patient still requires 1 assist to move out of bed. She is weak. HGB imoroved after transfusion, no overt bleeding'No cp, sob Not coughing. Wants to go home. Physical Exam Vital signs: Last Vital Signs Temp 97.3 F L 04/27/18 12:00 Pulse 67 04/27/18 12:00 Resp 16 04/27/18 12:00 BP 108/47 L 04/27/18 12:00 Pulse Ox 97 04/27/18 12:00 Intake & Output 04/25/18 04/26/18 04/27/18 04/28/18 06:59 06:59 06:59 06:59 Intake Total 2560 / 2560 1100 / 1100 880 / 880 50 / 50 Output Total 2500 / 2500 250 / 250 1600 / 1600 Balance 60 / 60 850 / 850 -720 / -720 50 / 50 Weight 70.7 kg 71.7 kg 72.4 kg Narrative: GENERAL: 72 yo female, calm at this time, however she is noted agitated on / off. No apparent distress. SKIN: pale CARDIOVASCULAR: Regular rate and rhythm without murmurs, gallops, or rubs. RESPIRATORY: Breath sounds decreased. No accessory muscle use. GASTROINTESTINAL: Abdomen soft, nondistended, nontender. EXTREMITIES: Mild edema left hand. Left arm AVF. Urinary Catheter Management Indwelling Urethral Catheter: Cath placed during this visit: yes, but has since been removed by the nurse Insertion date: 04/14/18 Insertion time: 10:35 Removal date: 04/14/18 Removal time: 17:30 Results Labs CBC & Chem 7: 04/27/18 04:26 04/27/18 15:40 Assessment and Plan (1) ESRD (end stage renal disease): Code(s): N18.6 - End stage renal disease Status: Chronic (2) Hyperkalemia: Code(s): E87.5 - Hyperkalemia Status: Acute (3) Acute metabolic encephalopathy: Code(s): G93.41 - Metabolic encephalopathy Status: Acute (4) Acute hypoxemic respiratory failure: Code(s): J96.01 - Acute respiratory failure with hypoxia Status: Acute (5) Septic shock: Code(s): A41.9 - Sepsis, unspecified organism; R65.21 - Severe sepsis with septic shock Status: Resolved Plan NEURO/PSYCH: Acute metabolic encephalopathy-resolving 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 -Encephalopathy seems to be metabolic secondary to severe sepsis -CT of the head shows old bilateral cerebellar strokes, and nothing acute. -As needed fentanyl 25 mcg every 3 hours as needed pain Psychosis/ poss ICU delirium , agitation and anxiety. start seroquel RESP: Acute hypoxemic respiratory failure, resolving -Intubated in the emergency department for lack of airway protection and hypoxia -Extubated 04/17 -nasal cannula maintain saturations greater than equal to 90%. Wean as tolerated -albuterol/ipratropium aerosols every 4 hours with albuterol aerosols every 2 hours as needed -Incentive spirometry while -Head of bed at 30 degrees -Chest x-ray -small left infiltrate versus small left pleural effusion CV: NSTEMI likely type II Paroxysmal atrial fibrillation with 2 1 AV conduction Hypotension Lactic acidosis History of hypertension -GI bleeding currently holding aspirin 81 mg daily -Cardiology Dr. Fermin consulted NSTEMI most likely type II from sepsis -Hold all home antihypertensives (hold nifedipine, clonidine, hydralazine and Lasix) -Cardiology recommended diltiazem 30 mg 4 times daily and carvedilol 3.125 mg twice daily -2d echocardiogram revealed normal left ventricular size. EF 65-70%. Left lipomatous atrial septum,. Trace MR/TR GI: Improved only downtrending elevated liver enzymes Admitting diagnosis of emphysematous cholecystitis/likely passed stone History of GERD -Diet Per GI. -Currently on pantoprazole drip at 8 mg an hour -Holding Nepro at 40 cc an hour goal. -Speech eval for swallow.-Failed 04/19 -CT abdomen pelvis shows small amount of air in the fundus of the gallbladder, this is concerning for emphysematous cholecystitis given clinical picture -Initially, stat consult to general surgery and discussed with Dr. Cortes. Recommended conservative therapy at the present time. -Dr. Cortes/general surgery and gastroenterology signed off MRCP -04/16 - cholelithiasis with multiple small gallstones layering dependently. There is no gallbladder wall thickening or inflammatory change. No gas is visualized on the MRI. Common bile duct measuring up to 1 cm with no filling defects or mass. This could represent distal obstruction or prior passage of stones. Multiple benign-appearing small cystic structures in the pancreas. Bilateral simple renal cysts as well as a more complex right parapelvic cyst. -Possible ERCP. LFTs very slowly trending downward -GI following still -With bright red blood per rectum we will nuclear medicine bleeding scan was negative-04/20. Repeat ordered by GI -GI for EGD with gastritis and colonoscopy -sigmoid/colonic diverticulosis. Bright red blood. Poor prep. Renal/: End-stage renal disease -Monitor renal function closely. -Dr. Gillette consulted for emergent hemodialysis on 04/14. Dialyzed 04/21 -Monitor urine output accurate I's and O's Noted hypotensive after HD on 04/24/18 . Started on midodrine per nephro However patient anxious BP in 200s , repeat improved. ID: Septic shock Admitting diagnosis of possible emphysematous cholecystitis/likely passed stone Possible UTI -Antibiotics with piperacillin/tazobactam. Discontinued vancomycin 04/16 -Infectious disease continues to follow and general surgery consulted. -Follow-up blood urine and sputum cultures no growth to date HEME: Normocytic anemia Leukocytosis -Monitor CBC, coags. Check coags now -Receiving 2 units PRBCs on 04/20. Recheck at 1500 and 2300 hrs. today - HGB droped to 6.8 on 04/27/18 transfuse 2 U PRBCs . GI consulted ENDO/FEN: Hyperphosphatemia Hypokalemia Type 2 diabetes -Sliding scale insulin -We will start on calcium acetate at 1334 g 3 times daily MSK Cyanosis left upper extremity Followed by Dr. Wu. S/P AV fistula ligation by Dr. Stuart 04/23 PROPH: -Bilateral lower extremity SCDs. Heparin sq/omeprazole LINES: -Utilize peripheral IVs, left subclavian central line day #5 with left femoral arterial line day #3 both discontinued 04/18 Discussed with the patient, ICU nurse Transfer to med surg floor Seen by psych who deemed patient to be able to make decisions including leaving AMA ... PT recommends SNF rehab however the patient is refusing rehab and wants to go home. PT daily until patient is deem safe for DC by PT. Also 04/26/18 noted with low HGB at 6.8 , will transfuse 2 U , reconsult GI for eval Progress Note: Quality VTE Deep Vein Thrombosis/Pulmonary Embolism Present on Admission: No
[2018-04-27] MEDS: Gabapentin 100 MG Capsule PO SCH (21:09)
[2018-04-28] MEDS: Oral Hygiene Kit OROPHARYNG SCH ×4 (00:16→16:17)
[2018-04-28] MEDS: Insulin NovoLOG Aspart Correctional Sugar Inj SQ SCH ×4 (00:16→18:36)
[2018-04-28] MEDS: Artificial Tears Opth Drops 15 ML Bottle EACH EYE SCH ×3 (04:01→18:37)
[2018-04-28 06:34] LABS: Baso # (Auto) 0.1 th/mm3 (0.0-0.2); Baso % (Auto) 1.2 % (0.0-2.0); Eos # (Auto) 0.3 th/mm3 (0.0-0.4); Hematocrit 28.6 % (35.0-46.0); Hemoglobin 9.8 gm/dL (11.6-15.3); Lymph # (Auto) 1.9 th/mm3 (1.0-4.8); Lymph % (Auto) 19.8 % (9.0-44.0); Mean Corpuscular HGB Conc 34.2 % (32.0-36.0); Mean Corpuscular Hemoglobin 31.5 pg (27.0-34.0); Mean Corpuscular Volume 91.9 fL (80.0-100.0); Mean Platelet Volume 9.7 fL (7.0-11.0); Mono % (Auto) 10.2 % (0.0-8.0); Neut # (Auto) 6.4 th/mm3 (1.8-7.7); Neut % (Auto) 65.8 % (16.0-70.0); Platelet Count 361 th/mm3 (150-450); Red Blood Count 3.11 mil/mm3 (4.00-5.30); Red Cell Distribution Width 17.4 % (11.6-17.2); White Blood Count 9.8 th/mm3 (4.0-11.0)
[2018-04-28 07:00] LABS: Calcium 8.5 mg/dL (8.5-10.1); Carbon Dioxide 27.6 meq/L (21.0-32.0); Phosphorus 3.5 mg/dL (2.5-4.9); Potassium 3.4 meq/L (3.5-5.1)
[2018-04-28] MEDS: Chlorhexidine 0.12% Oral Kit 15 ML UDC OROPHARYNG SCH ×2 (07:25→21:07)
[2018-04-28] MEDS: Vitamin B Complex/Vit C/Folic Tablet PO SCH (09:06)
[2018-04-28] MEDS: dilTIAZem 30 MG Tablet PO SCH ×4 (09:06→21:21)
[2018-04-28] MEDS: Calcium Acetate 667 MG Capsule NG/OG SCH ×3 (09:06→18:37)
[2018-04-28] MEDS: Lactobacillus Acidophilus/L. Spores Tablet PO SCH ×2 (09:06→21:21)
[2018-04-28] MEDS: Mupirocin 2% Nasal Oint Topical Syringe EACH NARE SCH ×2 (09:07→21:21)
[2018-04-28] MEDS: QUEtiapine 25 MG Tablet PO SCH ×2 (09:07→11:29)
--- NOTE | 2018-04-28 10:26 | P.DCO ---
Diagnosis (1) ESRD (end stage renal disease): Status: Chronic (2) Hyperkalemia: Status: Acute (3) Acute metabolic encephalopathy: Status: Acute (4) Acute hypoxemic respiratory failure: Status: Acute (5) Septic shock: Status: Resolved Physical Therapy Order: Evaluate and treat Occupational Therapy Order: Evaluate and treat Home Health Nursing Order: Medical education, Signs/symptoms of disease process, Medication education-adverse effect, Nursing assessment with vital signs and Telehealth [employer] Draw[employer] Hand Order: To evaluate: Living conditions/environment and Support services Case Management Consult Case Management Consult-Home Health: Yes I have seen patient Nancy Olivas on 04/28/18. My clinical findings support the need for the requested home health care services because: Patient with acute respiratory failure intubated/extubated, encephalopathy, ESRD on HD , labile BP, NSTEMI with multiple comorbidities very weak requring both PT/OT at DC patient preference is home with home health abd not rehab - SNF, patient has help at home. Limited mobility due to disease progression, Patient has SOB, Deconditioned with increased weakness, Medication compliance is questionable, Limited ability to care for self and High risk of falls I certify that my clinical findings support that this patient is homebound because: Patient with acute respiratory failure intubated/extubated, encephalopathy, ESRD on HD , labile BP, NSTEMI with multiple comorbidities very weak requring both PT/OT at DC patient preference is home with home health abd not rehab - SNF, patient has help at home. The patient is very weak and will benefit from PT/OT and nursing evaluation Post-op weakness and Unsteady gait/balance
--- NOTE | 2018-04-28 10:28 | P.DS ---
DS: Providers Date of admission: 04/14/18 12:01 Primary care physician: UNKNOWN Consults: 04/14/18 11:52 Consult to Nephrology Stat Consulting Provider: Sheila Gillette For STAT consult, spoke directly to:: dr dempsey to discuss Does the patient have a Psychology Professor who follows them?: No Preferred Nephrology Crushing Machine Operator:: Sheila Gillette Reason for Consultation: emergent dialysis, hyperkalemia Notified:: Service Spoke with:: ROSY Date Notified:: 04/14/18 Time Notified:: 12:09 Ordering Provider: SIMBA 04/14/18 12:39 Consult to General Surgery Stat Consulting Provider: Chance Cortes For STAT consult, spoke directly to:: Dr. 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 cholecytitis, septic shock Notified:: Service Spoke with:: ROSY Date Notified:: 04/14/18 Time Notified:: 12:48 Ordering Provider: GRANT 04/14/18 17:02 Consult to Gastroenterology Routine Consulting Provider: Naila Berg Reason for Consultation: Common bile duct enlarged, elevated liver enzymes, minimal air in GB Notified:: Service Spoke with:: KWAME Date Notified:: 04/14/18 Time Notified:: 17:04 Ordering Provider: GRANT 04/16/18 10:05 HUB Only Consult Order Routine Consulting Provider: Kristine Carmona 04/16/18 10:56 Consult to Vascular Surgery Routine Consulting Provider: Wlii Wu Patient known to:: Wili Wu Reason for Consultation: Prior L AVF. Currently with cyanotic L hand. Dopplerable pulses. Notified:: Physician Spoke with:: DR. ZHANG Date Notified:: 04/16/18 Time Notified:: 11:00 Comments:: spoke to Dr Wu @ [address] - [place] Ordering Provider: MILLIE 04/19/18 07:12 Consult to Hospitalist Routine Consulting Provider: Louis Betancourt Reason for Consultation: [place] of care in a.m. 04/20. Admission with severe sepsis.: Lithiasis passed gallstone. End-stage renal disease on hemodialysis. Extubated 04/17. Notified:: Service Spoke with:: MAIKEL Date Notified:: 04/19/18 Time Notified:: 08:29 Ordering Provider: MILLIE 04/20/18 07:29 Consult to Gastroenterology Routine Consulting Provider: Elias Catherine V Reason for Consultation: Bright red blood per rectum. Slow drop in hemoglobin. Possible need for endoscopy. Notified:: Service Spoke with:: ashley Date Notified:: 04/20/18 Time Notified:: 07:37 Ordering Provider: MILLIE 04/23/18 14:57 Consult to Hospitalist Routine Consulting Provider: Casie King Reason for Consultation: Septic shock resolving, end-stage renal disease, GI bleed ,left upper extremity steal syndrome status post left AV fistula ligation. Notified:: Service Spoke with:: JHONATAN Date Notified:: 04/23/18 Time Notified:: 15:10 Comments:: Ordering Provider: RAVINDER 04/24/18 17:41 Consult to Psychiatry Routine Consulting Provider: Amol Burgess Reason for Consultation: psychosis decision making capacity Notified:: Office Spoke with:: Triny Date Notified:: 04/24/18 Time Notified:: 17:47 Ordering Provider: HOLLEY 04/26/18 18:25 Consult to Gastroenterology Routine Consulting Provider: Matti Wharton Reason for Consultation: low HGB severe anemia requiring blood transfusion r/ o GIB Notified:: Service Spoke with:: ZULY Date Notified:: 04/26/18 Time Notified:: 18:29 Ordering Provider: HOLLEY Brief History from admission: Patient is a 72-year-old female with past medical history significant for previous strokes, TIA, end-stage renal disease on hemodialysis (Monday, Monday schedule), Left AV fistula on 01/2018, type 2 diabetes, and hypertension. EMS was called as her roommate found her unresponsive last seen normal yesterday night. IV 0.4 mg of Narcan was given without any response. Patient was intubated in the emergency department for airway protection, for a GCS 8. Lab work showed leukocytosis of 12,500 with a left shift of 90% neutrophilia, 29% bands. Lactic acid came back at 6. CMP showed potassium of 6.0 bicarb of 16.7, anion gap of 24, liver enzymes were markedly elevated AST 1992 ALT 758, CPK 475, troponin 5.21. EKG did not show any evidence of acute ST elevation. ABG shows pH of 7.19 PCO2 of 48 PaO2 of [address] abdomen pelvis showed distended gallbladder with cholelithiasis, also small amount of air in the fundus of the gallbladder. Critical care medicine was consulted for admission. I evaluated the patient in the emergency department. She is acutely ill critical appearing. Intermittently hypotensive. Dr. Vargas has placed a left subclavian central line. I will start Levophed if needed. Patient received Zosyn and Flagyl in the ED. I will place patient on vancomycin and Zosyn renally dosed. Pierre cultures have been sent. With the CT finding I contacted Dr. Cortes who requested stat ultrasound of the right upper quadrant. Also ID was consulted and I discussed with Dr. Montaño. Patient has healed scars probably few week old laparoscopic abdominal surgery, it is unclear what kind of surgery she had. Dr. Fermin consulted for an STEMI. Nephrology Dr. 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 -Encephalopathy seems to be metabolic secondary to severe sepsis -CT of the head shows old bilateral cerebellar strokes, and nothing acute. -As needed fentanyl 25 mcg every 3 hours as needed pain Psychosis/ poss ICU delirium , agitation and anxiety. start seroquel . Psych consulted as patient wanted to leave ama, patient is deamed able to make decisions. Patient at [facility] Improved with PT /OT and has help at home , refusing SNF , wants to go home with home health RESP: Acute hypoxemic respiratory failure, resolved -Intubated in the emergency department for lack of airway protection and hypoxia -Extubated 04/17 -nasal cannula maintain saturations greater than equal to 90%. Wean as tolerated -albuterol/ipratropium aerosols every 4 hours with albuterol aerosols every 2 hours as needed -Incentive spirometry while -Head of bed at 30 degrees -Chest x-ray -small left infiltrate versus small left pleural effusion CV: NSTEMI likely type II Paroxysmal atrial fibrillation with 2 1 AV conduction Hypotension Lactic acidosis History of hypertension -GI bleeding currently holding aspirin 81 mg daily -Cardiology Dr. Fermin consulted NSTEMI most likely type II from sepsis -Hold all home antihypertensives (hold nifedipine, clonidine, hydralazine and Lasix) -Cardiology recommended diltiazem 30 mg 4 times daily and carvedilol 3.125 mg twice daily -2d echocardiogram revealed normal left ventricular size. EF 65-70%. Left lipomatous atrial septum,. Trace MR/TR GI: Improved only downtrending elevated liver enzymes Admitting diagnosis of emphysematous cholecystitis/likely passed stone History of GERD -Diet Per GI. -Currently on pantoprazole drip at 8 mg an hour -Holding Nepro at 40 cc an hour goal. -Speech eval for swallow.-Failed 04/19 -CT abdomen pelvis shows small amount of air in the fundus of the gallbladder, this is concerning for emphysematous cholecystitis given clinical picture -Initially, stat consult to general surgery and discussed with Dr. Cortes. Recommended conservative therapy at the present time. -Dr. Cortes/general surgery and gastroenterology signed off MRCP -04/16 - cholelithiasis with multiple small gallstones layering dependently. There is no gallbladder wall thickening or inflammatory change. No gas is visualized on the MRI. Common bile duct measuring up to 1 cm with no filling defects or mass. This could represent distal obstruction or prior passage of stones. Multiple benign-appearing small cystic structures in the pancreas. Bilateral simple renal cysts as well as a more complex right parapelvic cyst. -Possible ERCP. LFTs very slowly trending downward -GI following still -With bright red blood per rectum we will nuclear medicine bleeding scan was negative-04/20. Repeat ordered by GI -GI for EGD with gastritis and colonoscopy -sigmoid/colonic diverticulosis. Bright red blood. Poor prep. Renal/: End-stage renal disease -Monitor renal function closely. -Dr. Gillette consulted for emergent hemodialysis on 04/14. Dialyzed 04/21 -Monitor urine output accurate I's and O's Noted hypotensive after HD on 04/24/18 . Started on midodrine per nephro However patient anxious BP in 200s , repeat improved. ID: Septic shock Admitting diagnosis of possible emphysematous cholecystitis/likely passed stone Possible UTI -Antibiotics with piperacillin/tazobactam. Discontinued vancomycin 04/16 -Infectious disease continues to follow and general surgery consulted. -Follow-up blood urine and sputum cultures no growth to date HEME: Normocytic anemia Leukocytosis -Monitor CBC, coags. Check coags now -Received 2 units PRBCs on 04/20. - HGB droped to 6.8 on 04/27/18 transfuse 2 U PRBCs . GI consulted , signed off to f/up as OP ENDO/FEN: Hyperphosphatemia Hypokalemia Type 2 diabetes -Sliding scale insulin -We will start on calcium acetate at 1334 g 3 times daily MSK Cyanosis left upper extremity Followed by Dr. Wu. S/P AV fistula ligation by Dr. Stuart 04/23 PROPH: -Bilateral lower extremity SCDs. Heparin sq/omeprazole LINES: -Utilize peripheral IVs, left subclavian central line day #5 with left femoral arterial line day #3 both discontinued 04/18 Discussed with the patient, ICU nurse Seen by psych who deemed patient to be able to make decisions including leaving AMA ... PT recommends SNF rehab however the patient is refusing rehab and wants to go home. PT daily until patient is deem safe for DC by PT. Also 04/26/18 noted with low HGB at 6.8 , will transfuse 2 U , reconsult GI for eval , to follow up as OP with GI HGB stable. DC home with home health in fairly condition expect deterioration if patient doesn't do rehab. and if non compliant with follow ups and meds. Patient refused SNF . Patient instructed to go to rehab if not doing well at home. Time Spent with Patient Total time spent providing and/or coordinating discharge services: >30 minutes Quality: VTE Deep Vein Thrombosis/Pulmonary Embolism Present on Admission: No Results Completed studies during hospitalization: Pending at discharge 04/21/18 07:55 Surgical [PTH] Routine Labs on day of discharge: Labs from last 24 hours 04/28/18 04/28/1818 06:14 05:16 05:16 WBC 9.8 RBC 3.11 L Hgb 9.8 L Hct 28.6 L MCV 91.9 MCH 31.5 MCHC 34.2 RDW 17.4 H Plt Count 361 MPV 9.7 Neut % (Auto) 65.8 Lymph % (Auto) 19.8 [place] % (Auto) 10.2 H Eos % (Auto) 3.0 Baso % (Auto) 1.2 Neut # (Auto) 6.4 Lymph # (Auto) 1.9 [place] # (Auto) 1.0 H Eos # (Auto) 0.3 Baso # (Auto) 0.1 WBC Differential . Differential Comment Auto diff final Sodium 141 Potassium 3.4 L Chloride 101 Carbon Dioxide 27.6 Anion Gap 12 BUN 41 H Creatinine 7.23 H Estimated GFR 6 L POC Glucose 120 H Random Glucose 126 H Calcium 8.5 Phosphorus 3.5 Magnesium 04/28/18 04/27/18 04/27/18 00:13 17:37 15:40 WBC RBC Hgb Hct MCV MCH MCHC RDW Plt Count MPV Neut % (Auto) Lymph % (Auto) [place] % (Auto) Eos % (Auto) Baso % (Auto) Neut # (Auto) Lymph # (Auto) [place] # (Auto) Eos # (Auto) Baso # (Auto) WBC Differential Differential Comment Sodium Potassium 3.1 L Chloride Carbon Dioxide Anion Gap BUN Creatinine Estimated GFR POC Glucose 120 H 130 H Random Glucose Calcium Phosphorus Magnesium 04/27/18 04/27/18 11:20 04:26 WBC RBC Hgb Hct MCV MCH MCHC RDW Plt Count MPV Neut % (Auto) Lymph % (Auto) [place] % (Auto) Eos % (Auto) Baso % (Auto) Neut # (Auto) Lymph # (Auto) [place] # (Auto) Eos # (Auto) Baso # (Auto) WBC Differential Differential Comment Sodium Potassium Chloride Carbon Dioxide Anion Gap BUN Creatinine Estimated GFR POC Glucose 291 H Random Glucose Calcium Phosphorus Magnesium 1.6 Impressions ITS Impressions Head CT 04/14/18 09:44 CONCLUSION: 1. 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 2. No evidence of acute infarct, hemorrhage, mass or edema. 3. No significant change compared to 04/12/2017. . Abdomen/Pelvis CT 04/14/18 10:59 CONCLUSION: 1. Distended gallbladder with cholelithiasis and minimal gas in the fundus. There is no significant pericholecystic fluid or inflammation. 2. Simple left renal cyst. 3. Bibasilar airspace disease. Liver Ultrasound 04/14/18 12:44 CONCLUSION: 1. Gallbladder contains sludge and stones. However, no additional findings are present to definitively indicate acute cholecystitis. 2. Common bile duct is enlarged but contains no visible stone. Given the pain one could consider MRCP for further evaluation of the common duct stone as a cause for the duct dilatation in right upper quadrant pain. 3. Atrophic right kidney with changes suggesting chronic medical renal disease. There is a complex cystic lesion in the mid kidney and renal sinus measuring up to 3.5 cm. At some point ideally be further characterized with renal protocol MRI with and without intravenous contrast. This should be performed on an elective basis when condition permits. Extremity Arterial Study 04/15/18 00:00 CONCLUSION: 1. Significantly limited examination due to unobtainable pressures in the forearms bilaterally. 2. Unobtainable pressures and absence of waveforms in the left hand. Cannot exclude steal from patient's left upper extremity brachiobasilic fistula. Upper Extremity Ultrasound 04/15/18 00:00 CONCLUSION: Patent left AV fistula. Venous Doppler Study 04/15/18 00:00 CONCLUSION: No evidence of DVT. Cholangiopancreatography MRI 04/16/18 07:10 CONCLUSION: 1. Cholelithiasis with multiple small gallstones layering dependently. There is no gallbladder wall thickening or inflammatory change. No gas is visualized on the MRI. 2. Common bile duct measuring up to 1 cm with no filling defects or mass. This could represent distal obstruction or prior passage of stones. 3. Multiple benign-appearing small cystic structures in the pancreas. 4. Bilateral simple renal cysts as well as a more complex right parapelvic cyst. GI Bleed Scan Nuclear Medicine 04/20/18 00:00 CONCLUSION: 1. Negative for gastrointestinal hemorrhage. Chest X-Ray 04/23/18 00:00 CONCLUSION: 1. Stable small area of opacity right infrahilar region, stable from prior. 2. Loss of delineation of the lateral left hemidiaphragm, a new finding, suggestive of either pleural effusion or a small infiltrate. Discharge Plan Discharge Disposition Patient Disposition: /Home Health Service Discharge Condition Condition: Serious Discharge Order Discharge Orders: Discharge Order (Routine); Ordered 04/28/18 Ordered By: Casie King Discharge Details Anticipated Discharge Date: 04/28/18 Discharge Comment: DC when deemed safe for DC home by PT /OT. The patient is refusing SNF Physicians Team ED Provider: Juan Vargas Primary Care Provider: UNKNOWN, Attending Provider: Casie King Other Providers: Sheila Gillette ; Caroline Montaño ; Chance Cortes ; Naila Berg ; Kristine Carmona ; Wili Wu ; Quang Monreal ; Valery Dempsey ; Elias Catherine V ; Amol Burgess ; Matti Wharton Rxs /Orders / Referrals /Forms Prescriptions: New midodrine 5 mg Tablet 10 mg PO TID@0700,1200,1700 Qty: 90 RF: 0 carvedilol [Coreg] 3.125 mg Tablet 3.125 mg PO BID Qty: 60 RF: 0 diltiazem HCl 30 mg Tablet 30 mg PO QID Qty: 120 RF: 0 nitroglycerin [Nitrostat] 0.4 mg Tablet, Sublingual 0.4 mg Sublingual Q5M PRN (Reason: Chest Pain) Qty: 30 RF: 0 Continue pantoprazole [Protonix] 40 mg Tablet,Delayed Release (Dr/Ec) 40 mg PO DAILY RF: 0 Discontinued clonidine HCl 0.1 mg Tablet 0.1 mg PO DAILY PRN (Reason: Hypertension) RF: 0 furosemide 80 mg Tablet 80 mg PO DAILY RF: 0 nifedipine 90 mg Tablet Extended Release 24hr 90 mg PO DAILY RF: 0 hydralazine 50 mg Tablet 50 mg PO QID RF: 0 hydrocodone-acetaminophen [[place]] 7.5-325 mg Tablet 1 tab PO Q4-6H PRN (Reason: Pain, Moderate) RF: 0 Referrals: Naila Berg MD [Physician] - See Instructions ( Please call the physician 's office to book the appointment to be seen within [2 weeks ].) Alexis Stuart MD [Physician] - See Instructions (Your Vein Mapping exam is scheduled on 05/21/18 at 1:00 Your follow up/AVF Evaluation appointment is scheduled on 05/23/18 at 11:00) Sheila Gillette MD [Physician] - See Instructions ( Please call the physician's office to book the appointment to be seen within [3 days ].) UNKNOWN, [Primary Care Provider] - See Instructions ( Please call the physician's office to book the appointment to be seen within [2 weeks ].) Discharge Instructions Patient Printed Instructions: Heart Attack (IP), Dialysis Diet (DC), End Stage Kidney Disease (DC), Hemodialysis (GEN), Encephalopathy (GEN), Arteriovenous Fistula Creation for Hemodialysis (GEN), Colonoscopy (DC), Acute Respiratory Failure (IP) Status ED Status: Left Department
--- NOTE | 2018-04-28 17:36 | P.PNNP ---
Subjective Interval history: No acute complaints, wants to go home Physical Exam Vital signs: Vital Signs 04/27/18 19:22 04/27/18 20:00 04/28/18 00:00 Temperature 97.9 F 98.1 F Pulse Rate 74 78 Respiratory Rate 16 16 Blood Pressure 154/64 H 135/57 L Pulse Oximetry 96 97 96 04/28/18 01:00 04/28/18 08:00 04/28/18 12:00 Temperature 97.5 F L 98.0 F Pulse Rate 68 77 Respiratory Rate 20 16 18 Blood Pressure 115/59 L 112/53 L Pulse Oximetry 97 93 L 04/28/18 12:36 Temperature Pulse Rate Respiratory Rate 18 Blood Pressure Pulse Oximetry Intake & Output 04/27/18 04/28/18 04/28/18 18:59 06:59 18:59 Intake Total 650 / 650 Output Total 300 / 300 Balance 650 / 650 -300 / -300 Weight 72.3 kg Intake: IV 50 / 50 Zosyn 2.25 GM Premix 50 ML @ 50 / 50 100 mls/hr IV.SIG Q6H CIRILO Rx#: [id number] Oral 600 / 600 Output: Urine 300 / 300 Other: # Voids 2 Date of Last Bowel Movement 04/27/18 04/27/18 # Bowel Movements 2 - Constitutional no acute distress - Routine HEENT Exam Head: Present: normocephalic Eye: Present: EOMI ENT: Present: mucous membranes moist - Routine Neck Exam Present: supple - Routine Respiratory Exam Present: decreased breath sounds - Routine Cardiovascular Exam Present: RRR - Routine Abdominal Exam Present: soft - Routine Skin Exam Present: intact - Routine Neurological Exam Present: alert, oriented X3 - Detailed Neurological Exam: Coma Scale Eye Opening: Spontaneous - Routine Psychiatric Exam Present: normal affect - Urinary Catheter Management Indwelling Urethral Catheter Cath placed during this visit: yes, but has since been removed by the nurse Reason for continuing: Hourly intake/output Insertion date: 04/14/18 Insertion time: 10:35 Removal date: 04/14/18 Removal time: 17:30 Assessment and Plan - Assessment (1) ESRD (end stage renal disease) Code(s): N18.6 - End stage renal disease Status: Chronic Plan: Patient gets dialysis TTS. Seen on HD today, tolerating HD well s/p left arm AVF ligation. Monitor fluid and electrolytes. Monitor phosphorus intermittently. Patient to receive dialysis at [facility] upon discharge. (2) Hyperkalemia Code(s): E87.5 - Hyperkalemia Status: Acute Plan: Resolved. (3) Acute metabolic encephalopathy Code(s): G93.41 - Metabolic encephalopathy Status: Acute (4) Acute hypoxemic respiratory failure Code(s): J96.01 - Acute respiratory failure with hypoxia Status: Acute Plan: s/p extubation. Breathing on room air. (5) Septic shock Code(s): A41.9 - Sepsis, unspecified organism; R65.21 - Severe sepsis with septic shock Status: Resolved Plan: resolved
[2018-04-28] MEDS: Gabapentin 100 MG Capsule PO SCH (21:20)
[2018-04-28 21:52] VITALS: O2SAT 95
[2018-04-29] MEDS: Insulin NovoLOG Aspart Correctional Sugar Inj SQ SCH ×3 (00:15→11:54)
[2018-04-29] MEDS: Oral Hygiene Kit OROPHARYNG SCH ×3 (00:32→11:54)
[2018-04-29] MEDS: Artificial Tears Opth Drops 15 ML Bottle EACH EYE SCH ×2 (03:36→10:22)
[2018-04-29 07:40] LABS: Baso # (Auto) 0.1 th/mm3 (0.0-0.2); Baso % (Auto) 1.7 % (0.0-2.0); Eos # (Auto) 0.2 th/mm3 (0.0-0.4); Eos % (Auto) 2.8 % (0.0-4.0); Hemoglobin 11.3 gm/dL (11.6-15.3); Lymph # (Auto) 1.7 th/mm3 (1.0-4.8); Mean Corpuscular HGB Conc 34.2 % (32.0-36.0); Mean Corpuscular Volume 93.8 fL (80.0-100.0); Mean Platelet Volume 9.6 fL (7.0-11.0); Mono # (Auto) 1.2 th/mm3 (0.0-0.9); Mono % (Auto) 14.8 % (0.0-8.0); Neut # (Auto) 4.7 th/mm3 (1.8-7.7); Neut % (Auto) 59.7 % (16.0-70.0); Platelet Count 356 th/mm3 (150-450); Red Blood Count 3.52 mil/mm3 (4.00-5.30); Red Cell Distribution Width 17.6 % (11.6-17.2); White Blood Count 7.9 th/mm3 (4.0-11.0)
[2018-04-29 08:16] LABS: Potassium 4.9 meq/L (3.5-5.1)
[2018-04-29] MEDS: Calcium Acetate 667 MG Capsule NG/OG SCH (10:21)
[2018-04-29] MEDS: QUEtiapine 25 MG Tablet PO SCH (10:21)
[2018-04-29] MEDS: Vitamin B Complex/Vit C/Folic Tablet PO SCH (10:22)
[2018-04-29] MEDS: Lactobacillus Acidophilus/L. Spores Tablet PO SCH (10:22)
[2018-04-29] MEDS: dilTIAZem 30 MG Tablet PO SCH (10:22)
[2018-04-29] MEDS: Chlorhexidine 0.12% Oral Kit 15 ML UDC OROPHARYNG SCH (10:22)
[2018-04-29] MEDS: Mupirocin 2% Nasal Oint Topical Syringe EACH NARE SCH (10:22)
[2018-04-29 10:40] VITALS: BP 120/63; PULSE 78; RESP 16; TEMP 97.9
== END 2018-04-29 12:46 | disposition home health service (06) ==
LOC: NEPC 09:37 → NEDA 12:01 → HIMC 13:35 → N07 04-26 20:52
PROVIDERS: ADMIT Hospitalist; ATTEND Hospitalist
PROC: COLONOS (2018-04-21 12:17)
PROC: AVGFTUE (ICD-10-PCS; 2018-04-23 11:15)
DX: Z86.14 Personal history of Methicillin resistant Staphylococcus aureus infection; I21.A1 Myocardial infarction type 2; N18.6 End stage renal disease; I48.0 Paroxysmal atrial fibrillation; E87.0 Hyperosmolality and hypernatremia; F05 Delirium due to known physiological condition; K92.1 Melena; E11.649 Type 2 diabetes mellitus with hypoglycemia without coma; K21.9 Gastro-esophageal reflux disease without esophagitis; Z99.2 Dependence on renal dialysis; T82.898A Other specified complication of vascular prosthetic devices, implants and grafts, initial encounter; E87.2 Acidosis; E87.6 Hypokalemia; Z53.09 Procedure and treatment not carried out because of other contraindication; K57.30 Diverticulosis of large intestine without perforation or abscess without bleeding; K72.00 Acute and subacute hepatic failure without coma; K80.00 Calculus of gallbladder with acute cholecystitis without obstruction; R65.21 Severe sepsis with septic shock; R26.81 Unsteadiness on feet; K29.70 Gastritis, unspecified, without bleeding; G93.41 Metabolic encephalopathy; A41.9 Sepsis, unspecified organism; J96.01 Acute respiratory failure with hypoxia; I48.92 Unspecified atrial flutter; E87.5 Hyperkalemia; N39.0 Urinary tract infection, site not specified; I12.0 Hypertensive chronic kidney disease with stage 5 chronic kidney disease or end stage renal disease; E11.22 Type 2 diabetes mellitus with diabetic chronic kidney disease; E83.39 Other disorders of phosphorus metabolism; D64.9 Anemia, unspecified; F43.21 Adjustment disorder with depressed mood